=== PATIENT | female | born 1940 | race Caucasian/White ===

== ENCOUNTER → 2016-04-07 | Outpatient (CLI) | payer OTHER ==
[~2016-04-07] MED LIST: ACET-1311 PO; ALBU1AER9 INH; ASPI81TA28 PO; ATOR-24 PO; BUPR5DIS TOP; CITA20TA4 PO; CITA40TA4 PO; DVN80 PO; FURO20TA PO; IMD/2 PO; INSDGI SC; METO-157 PO; METO100T14 PO; NRN600 PO; PANT40TA PO; POTA10CA28 PO; PROM25TA16 PO; RRALBUT083 INH; SENNTAB23 PO; SIMV20TA2 PO; SYMIN/8045 INH; TRAM-453 PO; ULT50 PO
[2016-04-07 12:47] LABS: ALKALINE PHOSPHATASE 123 U/L (45-117); ALT/SGPT 34 U/L (12-78); BLOOD UREA NITROGEN 13 mg/dl (7-18); BUN/CREATININE RATIO 13.1 (10-20); CALCIUM 8.5 mg/dl (8.5-10.1); CARBON DIOXIDE 32 mmol/L (21-32); CHLORIDE 103 mmol/L (98-107); CHOLESTEROL 104 mg/dl (0-200); GLUCOSE 98 mg/dl (70-99); POTASSIUM 3.6 mmol/L (3.5-5.1); SODIUM 142 mmol/L (136-145); TRIGLYCERIDES 124 mg/dl (0-150); VERY LOW DENSITY LIPOPROT CALC 25 mg/dl
[2016-04-07 12:58] LABS: ALB/GLOB RATIO 0.7 (0.9-2); AST/SGOT 27 U/L (15-37); CHOLESTEROL/HDL RATIO 1.9; ESTIMATED AVERAGE GLUCOSE 151 mg/dl; HA1C FLAG Normal (Normal); HDL CHOLESTEROL 54 mg/dl; LDL CHOLESTEROL CALCULATED 25 mg/dl
== END | disposition home or self-care (01) ==
LOC: C.LABBFT 08:09
PROVIDERS: ATTEND Internal Medicine
DX: E11.9 Type 2 diabetes mellitus without complications (principal)

== ENCOUNTER → 2016-04-27 | Outpatient (CLI) | payer OTHER ==
[2016-04-27 17:35] LABS: BASO % 0.3 %; BASO ABS # 0.02 K/uL (0-0.2); COMPLETE YES; EOS % 2.5 %; HEMATOCRIT 44.9 % (37-47); IG% 0.2 %; LYMPH % 26.5 %; LYMPH ABS # 1.61 K/uL (1.2-3.4); MEAN CELL VOLUME 89.1 fL (80-100); MEAN CORPUSCULAR HGB CONC 31.4 g/dl (32-36); MEAN PLATELET VOLUME 10.7 fL (7.4-10.4); MONO % 7.1 %; NEUT % 63.4 %; PLATELET COUNT 238 K/uL (130-400); RED BLOOD COUNT 5.04 M/uL (4.2-5.4); WHITE BLOOD COUNT 6.08 K/uL (4.8-10.8)
== END | disposition home or self-care (01) ==
LOC: C.LABBFT 16:41
PROVIDERS: ATTEND Surgery
DX: N64.4 Mastodynia (principal); Z01.812 Encounter for preprocedural laboratory examination

== ENCOUNTER → 2016-04-30 | Outpatient (CLI) | payer OTHER ==
[~2016-04-30] MED LIST changes: -CITA20TA4 PO; -DVN80 PO; -SIMV20TA2 PO
--- NOTE | 2016-04-30 13:26 | MAMMOGRAPHY REPORT ---
UNILATERAL LEFT DIGITAL DIAGNOSTIC MAMMOGRAM TOMOSYNTHESIS WITH CAD: 04/30/2016 CLINICAL HISTORY: Six-month follow-up of left breast asymmetry. History of right mastectomy. TECHNIQUE: Breast tomosynthesis in addition to standard 2D mammography was performed. Current study was also evaluated with a Computer Aided Detection (CAD) system. Left CC and MLO 2-D and tomosynth esis images were obtained. COMPARISON: Comparison is made to exams dated: 09/19/2015 ultrasound biopsy, 09/11/2015 mammogram, ultrasound, 07/03/2014 ultrasound, 07/03/2014 mammogram, and 12/22/2011 mammogram - [facility]. BREAST COMPOSITION: There are scattered areas of fibroglandular density in the left breast. FINDINGS: The previously described asymmetry seen within the left lateral breast on the cc view is stable compared to multiple prior exams including the 12/19/2010 exam, and is considered benign give n long-term stability. The remainder of the left breast is stable compared to prior exams, without suspicious masses, calcifications, or areas of architectural distortion noted. Small cluster of merry cifications in the left lateral breast middle depth on the cc view is stable compared to prior exams including the 12/22/2011 exam. IMPRESSION: ACR BI-RADS CATEGORY 2: BENIGN There is no mammographic evidence of malignancy in the left breast. A 1 year screening mammogram is recommended. The patient has been verbally notified of the results. Approximately 10% of breast cancers are not detected with mammography. A negative mammographic repor t should not delay biopsy if a clinically suggestive mass is present. Mary Lou Reyes M.D. /:04/30/2016 09:32:23 Appeals Coordinator: Erika SOLORIO)(Rebecca), [facility] letter sent: Normal 1/2 BI-RADS Code: ACR BI-RADS Category 2: Benign
== END | disposition home or self-care (01) ==
LOC: C.MAMM 09:08
PROVIDERS: ATTEND Internal Medicine
DX: N64.9 Disorder of breast, unspecified (principal)

== ENCOUNTER → 2016-06-22 | Outpatient (CLI) | payer OTHER ==
[2016-06-22 17:38] LABS: BASO % 0.3 %; BASO ABS # 0.02 K/uL (0-0.2); COMPLETE YES; EOS % 4.3 %; HEMATOCRIT 46.5 % (37-47); IG% 0.2 %; LYMPH % 28.7 %; LYMPH ABS # 1.88 K/uL (1.2-3.4); MEAN CELL VOLUME 90.6 fL (80-100); MEAN CORPUSCULAR HEMOGLOBIN 28.3 pg (25-34); MEAN CORPUSCULAR HGB CONC 31.2 g/dl (32-36); MEAN PLATELET VOLUME 10.9 fL (7.4-10.4); MONO % 10.1 %; NEUT % 56.4 %; PLATELET COUNT 210 K/uL (130-400); RED BLOOD COUNT 5.13 M/uL (4.2-5.4); WHITE BLOOD COUNT 6.56 K/uL (4.8-10.8)
[2016-06-22 19:01] LABS: BLOOD UREA NITROGEN 12 mg/dl (7-18); BUN/CREATININE RATIO 12.3 (10-20); CALCIUM 8.2 mg/dl (8.5-10.1); CARBON DIOXIDE 25 mmol/L (21-32); CHLORIDE 108 mmol/L (98-107); GLUCOSE 196 mg/dl (70-99); POTASSIUM 4.2 mmol/L (3.5-5.1); SODIUM 141 mmol/L (136-145)
== END | disposition home or self-care (01) ==
LOC: C.LABBFT 14:16
PROVIDERS: ATTEND Surgery
DX: Z01.812 Encounter for preprocedural laboratory examination (principal); R22.2 Localized swelling, mass and lump, trunk

== ENCOUNTER 2016-07-06 10:11 | Day surgery (SDC) | payer OTHER ==
[2016-04-29 09:56] VITALS: BMI 50.0
[2016-06-22 09:20] VITALS: Ht 160 cm; Wt 124.1 kg
[~2016-07-06] VITALS: Ht 160 cm; Wt 124.1 kg
[~2016-07-06 10:11] MED LIST changes: +CLINDAMYCIN IV 900 MG in DEXTROSE 5% ADD-VANTAGE 100ML 100 ML IV SCH; +LACTATED RINGER'S 1000ML 1,000 ML IV SCH; -TRAM-453 PO; -ULT50 PO
[2016-07-06] MEDS ORDERED: PROPOFOL IV EMULSION 10 MG/ML 20 ML VIAL IV ONE (10:33)
[2016-07-06] MEDS ORDERED: MIDAZOLAM HCL 1 MG/ML 2ML VIAL ONE (10:33)
[2016-07-06] MEDS ORDERED: FENTANYL CITRATE INJ 50 MCG/1 ML 2 ML VIAL ONE (10:33)
[2016-07-06] MEDS ORDERED: LIDOCAINE HCL 1% 20 ML VIAL ONE (10:41)
[2016-07-06] MEDS ORDERED: ULT50 PO (10:50)
[2016-07-06 10:56] VITALS: BP 156/94; PULSE 68; TEMP 36.7; O2SAT 95
[2016-07-06 11:29] VITALS: PULSE 68; O2SAT 94
[2016-07-06] MEDS ORDERED: ALBUT/IPRATROP 3MG/0.5MG NEB 3 ML VIAL INH ONE (11:30)
[2016-07-06] MEDS ORDERED: ATROPINE SULFATE 0.1 MG/ML 5ML SYR IV PRN (11:30)
[2016-07-06] MEDS ORDERED: EpHEDrine SULFATE INJ 50 MG/ML AMP IV PRN (11:30)
[2016-07-06] MEDS ORDERED: FENTANYL CITRATE INJ 50 MCG/1 ML 2 ML VIAL IV PRN (11:30)
--- NOTE | 2016-07-06 11:45 | History & Physical Bridge Note ---
H&P Re-Evaluation Bridge Note: I have examined the patient, reviewed the History & Physical and in the interval since the performance of the History & Physical I have noted the following changes of clinical significance: No changes noted
[2016-07-06] MEDS ORDERED: LACTATED RINGER'S 1000ML 1,000 ML IV SCH (12:22)
--- NOTE | 2016-07-06 12:27 | Discharge Instructions ---
Discharge Instructions Date of Service July 06, 2016. Visit Reason for Visit: Right Breast Pain, Insulin-Dependent Diabetes Manuela Discharge Discharge Diagnosis / Problem: right chest biopsy Discharge Goals Goal(s): Decrease discomfort Activity Recommendations Activity Limitations: as noted below Shower/Bathe: keep incision dry (for 2 days) Anesthesia . Post Anesthesia Instructions: If you have had General Anesthesia or IV Sedation: * Do not drive today. * Resume driving when surgeon permits. * Do not make important decisions or sign legal documents today. * Call surgeon for: 1. Temperature elevations greater than 101 degrees F. 2. Uncontrollable pain. 3. Excessive bleeding. 4. Persistent nausea and vomiting. 5. Medication intolerance (nausea, vomiting or rash). * For nausea and vomiting use only clear liquids such as: tea, soda, bouillon until nausea subsides, then gradually increase diet as tolerated. * If you have any concerns or questions, call your surgeon's office. If physician is unavailable and it is an emergency, call 911 or go to the nearest emergency room. . Instructions / Follow-Up Instructions / Follow-Up Dr. Mcnair's office in 7-10 days to have sutures removed, [phone] Diet Recommendations Recommended Home Diet: no limitations Procedures Procedures Performed: Right Chest Wall Biopsy Pending Studies Studies pending at discharge: yes List of pending studies: Pathology Medical Emergencies . Who to Call and When: Medical Emergencies: If at any time you feel your situation is an emergency, please call 911 immediately. . Non-Emergent Contact Non-Emergency issues call your: Surgeon Call Non-Emergent contact if: you have a fever, temperature is above 101.5, your pain is not controlled . . "Provider Documentation" section prepared by Bernardo Pitt. .
--- NOTE | 2016-07-06 12:29 | [facility] Post Operative Brief Note ---
Immediate Operative Summary Operative Date July 06, 2016. Pre-Operative Diagnosis Right Chest Wall Mass Post-Operative Diagnosis Right Chest Wall Mass Procedure(s) Performed Right Chest Wall Biopsy Surgeon Dr. Jose Mcnair Visitor Services Associate Surgeon(s) Bernardo Pitt PA-C Estimated Blood Loss 5ML Findings appeared to be normal skin and subcutaneous tissue Specimens A. Right Chest Wall Tissue Anesthesia local/ sedation Complication(s) None Disposition Recovery Room / PACU
[2016-07-06] MEDS ORDERED: ONDANSETRON INJ 2 MG/ML 2 ML VIAL IV PRN (12:30)
[2016-07-06] MEDS ORDERED: HYDROCODONE/ACETAMOPHEN 5/325MG TAB PO PRN ×3 (12:30)
[2016-07-06] MEDS ORDERED: MoRPHine SULFATE 2 MG/ML CARP IV PRN (12:30)
[2016-07-06] MEDS ORDERED: TRAMADOL HCL 50 MG TAB PO PRN (12:30)
--- NOTE | 2016-07-06 13:00 | Anesthesiology Progress Note ---
Anesthesia Post Op Note Date & Time July 06, 2016 at 13:01 Vital Signs Pain Intensity: 2 Vital Signs Past 12 Hours Date Time Temp Pulse Resp B/P Pulse Ox O2 Delivery O2 Flow Rate FiO2 07/06/16 12:50 77 15 105/78 93 Nasal Cannula 2 07/06/16 12:40 79 12 106/80 95 Nasal Cannula 2 07/06/16 12:31 36.1 77 16 112/81 97 Mask 10 07/06/16 11:29 68 18 94 Room Air 07/06/16 10:56 36.7 68 22 156/94 95 Room Air Notes Mental Status: alert / awake / arousable, participated in evaluation Pt Amnestic to Procedure: Yes Nausea / Vomiting: adequately controlled Pain: adequately controlled Airway Patency, RR, SpO2: stable & adequate BP & HR: stable & adequate Hydration State: stable & adequate Anesthetic Complications: no major complications apparent
[2016-07-06] MEDS ORDERED: TRAM-453 PO (13:11)
[2016-07-06 13:15] VITALS: BP 109/63; PULSE 75; TEMP 36.8; O2SAT 94
--- NOTE | 2016-07-06 13:41 | OPERATIVE REPORT ---
DATE OF OPERATION: 07/06/2016 NAME OF OPERATION: Right chest wall biopsy. PREOPERATIVE DIAGNOSIS: Right chest wall mass. POSTOPERATIVE DIAGNOSIS: Same. ANESTHESIA: Local with sedation. PROCEDURE: The patient was brought in the operating room and placed on the operating table in supine position. Her right chest was prepped and draped in usual fashion. She had prior right mastectomy but had some soft tissue mounding just above the incision, which we wanted to make sure was not carcinoma. Using 1% plain lidocaine, elliptical incision was made just above the previous incision, carrying dissection down into the subcutaneous tissue, what appeared to be normal. This was sent for routine pathology. There was no area of firm mass effect, just soft tissue. The deep tissue was reapproximated using 2-0 plain catgut suture, then the skin reapproximated using 4-0 nylon suture. The patient was transferred to recovery room in stable condition. I attest to the content of the Intraoperative Record and any orders documented therein. Any exceptio ns are noted below.
[2016-07-06 13:46] VITALS: BP 102/65; PULSE 71; TEMP 36.8; O2SAT 94
[2016-07-06 14:15] VITALS: BP 107/55; PULSE 70; TEMP 36.5; O2SAT 94
--- NOTE | 2016-07-10 06:53 | EDITING REQUIRED CODING QUERY ---
CODING CLARIFICATION Please clarify below the size of the excision in square centimeters: ___1.2 sq cm (2x0.6 cm skin and 1 cm of subcutaneous tissue square centimeters were excised. Thank you for your assistance, Nahomy Jones - Laboratory Assistant
== END 2016-07-06 14:34 | disposition home or self-care (01) ==
LOC: C.ACU 10:11
PROVIDERS: ATTEND Surgery
DX: R22.2 Localized swelling, mass and lump, trunk (principal); J45.909 Unspecified asthma, uncomplicated; K21.9 Gastro-esophageal reflux disease without esophagitis; E11.9 Type 2 diabetes mellitus without complications; E78.00 Pure hypercholesterolemia, unspecified; I10 Essential (primary) hypertension; E66.01 Morbid (severe) obesity due to excess calories; F32.9 Major depressive disorder, single episode, unspecified; Z90.11 Acquired absence of right breast and nipple; Z87.01 Personal history of pneumonia (recurrent); Z85.3 Personal history of malignant neoplasm of breast; Z90.710 Acquired absence of both cervix and uterus; Z79.82 Long term (current) use of aspirin; Z79.4 Long term (current) use of insulin

== ENCOUNTER → 2016-10-09 | Outpatient (CLI) | payer OTHER ==
[~2016-10-09] MED LIST changes: -BUPR5DIS TOP; -CLINDAMYCIN IV 900 MG in DEXTROSE 5% ADD-VANTAGE 100ML 100 ML IV SCH; -LACTATED RINGER'S 1000ML 1,000 ML IV SCH; +ULT50 PO
[2016-10-09 12:29] LABS: MEAN CELL VOLUME 91.1 fL (80-100); MEAN CORPUSCULAR HEMOGLOBIN 28.1 pg (25-34); MEAN CORPUSCULAR HGB CONC 30.9 g/dl (32-36); MEAN PLATELET VOLUME 10.5 fL (7.4-10.4); PLATELET COUNT 247 K/uL (130-400); RED BLOOD COUNT 5.05 M/uL (4.2-5.4); WHITE BLOOD COUNT 6.98 K/uL (4.8-10.8)
[2016-10-09 12:43] LABS: ESTIMATED AVERAGE GLUCOSE 160 mg/dl; HA1C FLAG Normal (Normal)
[2016-10-09 12:53] LABS: ALB/GLOB RATIO 0.7 (0.9-2); ALT/SGPT 35 U/L (12-78); AST/SGOT 25 U/L (15-37); BLOOD UREA NITROGEN 13 mg/dl (7-18); BUN/CREATININE RATIO 13.2 (10-20); CALCIUM 8.1 mg/dl (8.5-10.1); CARBON DIOXIDE 28 mmol/L (21-32); CHLORIDE 110 mmol/L (98-107); CREATININE 0.98 mg/dl (0.60-1.20); GLUCOSE 165 mg/dl (70-99); POTASSIUM 4.3 mmol/L (3.5-5.1); SODIUM 141 mmol/L (136-145)
[2016-10-09 12:54] LABS: ALKALINE PHOSPHATASE 117 U/L (45-117); CHOLESTEROL 85 mg/dl (0-200); CHOLESTEROL/HDL RATIO 1.9; HDL CHOLESTEROL 44 mg/dl; LDL CHOLESTEROL CALCULATED 18 mg/dl; TRIGLYCERIDES 115 mg/dl (0-150); VERY LOW DENSITY LIPOPROT CALC 23 mg/dl
== END | disposition home or self-care (01) ==
LOC: C.LABBFT 09:42
PROVIDERS: ATTEND Internal Medicine
DX: E11.9 Type 2 diabetes mellitus without complications (principal)

== ENCOUNTER → 2017-04-20 | Outpatient (CLI) | payer OTHER ==
[~2017-04-20] MED LIST changes: -ULT50 PO
[2017-04-20 13:09] LABS: HEMOGLOBIN A1C 6.8 % (4.5-5.6)
[2017-04-20 15:50] LABS: ALBUMIN 2.9 gm/dl (3.4-5.0); ALKALINE PHOSPHATASE 111 U/L (45-117); ALT/SGPT 35 U/L (12-78); AST/SGOT 30 U/L (15-37); BLOOD UREA NITROGEN 18 mg/dl (7-18); CALCIUM 8.3 mg/dl (8.5-10.1); CARBON DIOXIDE 27 mmol/L (21-32); CREATININE 1.09 mg/dl (0.60-1.20); GLUCOSE 113 mg/dl (70-99); POTASSIUM 4.3 mmol/L (3.5-5.1); SODIUM 141 mmol/L (136-145); TOTAL PROTEIN 6.9 gm/dl (6.4-8.2)
[2017-04-20 16:02] LABS: CHOLESTEROL 95 mg/dl (0-200); LDL CHOLESTEROL CALCULATED 22 mg/dl
== END | disposition home or self-care (01) ==
LOC: C.LABBFT 09:50
PROVIDERS: ATTEND Internal Medicine
DX: E11.9 Type 2 diabetes mellitus without complications (principal)

== ENCOUNTER → 2017-05-07 | Outpatient (CLI) | payer OTHER ==
--- NOTE | 2017-05-07 16:18 | DIAGNOSTIC IMAGING REPORT ---
L-SPINE MIN 4 VIEWS ROUTINE CLINICAL HISTORY: M54.5 Low back [id number] COMPARISON STUDY: 10/06/2009 FINDINGS: There are postsurgical changes present. There is L3-S1 spinal fusion. There are postsurgical changes of an L5-S1 discectomy and interbody fusion. No acute fractures are visualized. Moderately advanced degenerative changes are present at the L1-2, and L2-3 levels. IMPRESSION: Degenerative and postsurgical change. No acute fractures or subluxations identified. Electronically signed by: Fletcher Fernando M.D. 05/07/2017 4:16 PM Dictated Date/Time: 05/07/2017 4:15 PM
--- NOTE | 2017-05-07 16:21 | DIAGNOSTIC IMAGING REPORT ---
L RIBS UNILATERAL WITH PA CHEST HISTORY: 76 years-old Female LT RIB PAIN acute left-sided rib pain with recent fall COMPARISON: Chest radiograph 12/19/2015 TECHNIQUE: AP view of the chest with 6 views of the left ribs FINDINGS: Cardiac silhouette is moderately enlarged. No pneumothorax, pleural effusion, focal airspace consolidation or overt pulmonary edema. Eventration of the right hemidiaphragm. Linear subsegmental left basilar opacities suggest atelectasis or scarring. Degenerative changes are noted involving the shoulders and spine. Surgical clips of the right upper abdomen suggest prior cholecystectomy. Surgical clips project over the epigastric region. Fusion hardware of the lumbar spine is partially imaged. Mild cortical irregularity involves the posterior aspect of the left 11th rib suspicious for acute nondisplaced fracture. Remaining ribs appear intact and unremarkable. IMPRESSION: 1. Cardiomegaly without acute process of the chest. 2. Mild cortical irregularity involving the posterior aspect of the left 11th rib is suspicious for acute nondisplaced fracture. Correlate with point tenderness. No acute displaced rib fracture or pneumothorax identified. The above report was generated using voice recognition software. It may contain grammatical, syntax or spelling errors. Electronically signed by: Jaziel Martin M.D. 05/07/2017 4:20 PM Dictated Date/Time: 05/07/2017 4:16 PM
== END | disposition home or self-care (01) ==
LOC: C.RAD1850 15:22
PROVIDERS: ATTEND Internal Medicine
DX: R07.9 Chest pain, unspecified (principal); M54.5 Low back pain; I51.7 Cardiomegaly

== ENCOUNTER 2017-07-06 18:27 | Emergency (ER) | payer OTHER ==
[~2017-07-06] VITALS: Ht 160 cm; Wt 130.0 kg
[2017-07-06 18:30] VITALS: TEMP 36.8; Ht 160 cm; Wt 130.0 kg
[2017-07-06] MEDS ORDERED: SODIUM CHLORIDE 0.9% 1000ML 500 ML IV STA (18:37)
--- NOTE | 2017-07-06 18:58 | EMERGENCY ROOM VISIT NOTE ---
History Report prepared by Faraz: Efra Greene Under the Supervision of: Dr. Vinay Izquierdo M.D. First contact with patient: 18:33 Chief Complaint: HYPERGLYCEMIA Stated Complaint: BLOOD SUGAR WAS OVER 400 AT DINNER History of Present Illness The patient is a 77 year old female who presents to the Emergency Room with complaints of constant hyperglycemia beginning this evening. The patient states she took her blood sugar at dinner earlier and her blood sugar was in the 400s. She reports her blood sugar was not elevated yesterday. The patient notes she took 20 units of regular insulin when she took her blood sugar and it was elevated. She states she has been urinating more frequently than normal today. The patient reports she has had a cold and runny nose for the past few days. She denies missing medications, taking new medication, cough, and congestion. Source of History: patient Onset: this evening Symptom Intensity: over 400 Quality: other (hyperglycemia) Timing: constant Modifying Factors (Relieving): other (20 units of regular insulin) Associated Symptoms: No cough Note: Associated symptoms: cold, increased urine frequency, runny nose Denies: congestion Review of Systems See HPI for pertinent positives & negatives. A total of 10 systems reviewed and were otherwise negative. Past Medical & Surgical Medical Problems: (1) Appendectomy (2) Back surgery (3) Benign hypertension (4) Cholecystectomy (5) Diabetes (6) Hernia (7) History of - tubal ligation Family History Cancer Diabetes mellitus Gallbladder disease Heart disease Hypertension Social History Smoking Status: Never Smoker Alcohol Use: none Drug Use: none Marital Status: Housing Status: lives with family Occupation Status: retired Current/Historical Medications Scheduled Aspirin (Aspirin Ec), 81 MG PO QAM Atorvastatin (Lipitor), 40 MG PO QAM Budesonide/Formoterol Fumarate (Symbicort 80/4.5 Inhaler), 2 PUFFS INH BID Citalopram (Citalopram Hydrobromide), 1 TAB PO QAM Furosemide (Lasix), 20 MG PO QAM Gabapentin (Gabapentin), 1,200 MG PO BID Insulin Glargine (Lantus), 20 UNITS SC AMPM Metoclopramide (Reglan), 10 MG PO QAM Metoprolol Tartrate (Lopressor) (Lopressor), 100 MG PO QAM Pantoprazole (Protonix), 40 MG PO QAM Potassium Chloride (Micro-K Ext Rel), 10 MEQ PO QAM Promethazine HCl (Promethazine HCl), 25 MG PO QAM Sennosides-Docusate Sodium (Stool Softener), 1 TAB PO PRN Scheduled PRN Acetaminophen (Tylenol), 650 MG PO Q6H PRN for Pain Albuterol (Proair Hfa), 2 PUFF INH QID PRN for WHEEZING Albuterol Sulf (Albuterol Sulfate), 1 APPLN INH QID PRN for SHORTNESS/WHEEZING Loperamide Hcl (Imodium), 2 MG PO Q6H PRN for RN Allergies Coded Allergies: Iodine (Verified Allergy, Severe, RASH, 07/06/17) Penicillins (Verified Allergy, Intermediate, RASH/HIVES, 07/06/17) BEE STING (Verified Allergy, Unknown, SWELLING SOB, 07/06/17) Cephalosporins (Verified Allergy, Unknown, UNKNOWN, 07/06/17) Codeine (Verified Allergy, Unknown, SWELLING, 07/06/17) Metformin (Verified Allergy, Unknown, Diarrhea, 07/06/17) Procaine (Verified Allergy, Unknown, NOVOCAINE-RASH, 07/06/17) Physical Exam Vital Signs Date Time Temp Pulse Resp B/P (MAP) Pulse Ox O2 Delivery O2 Flow Rate FiO2 07/06/17 21:15 62 16 157/72 98 Room Air 07/06/17 20:11 65 16 167/79 98 Room Air 07/06/17 19:40 74 07/06/17 18:30 36.8 82 20 138/80 96 Room Air Physical Exam GENERAL: Patient is in no acute distress. HEENT: No acute trauma, normocephalic atraumatic, mucous membranes dry, no nasal congestion, no scleral icterus. NECK: No stridor, no adenopathy, no meningismus, trachea is midline. LUNGS: Clear to auscultation bilaterally, no wheeze, no rhonchi, breath sounds equal. HEART: Without murmurs gallops or rubs, regular rate and rhythm. ABDOMEN: Soft, nontender, bowel sounds positive, no hernias, no peritonitis. EXTREMITIES: No cyanosis. Mild pedal edema, full range of motion of all the joints without pain or difficulty, no signs for acute trauma. NEUROLOGIC: Oriented x 3, no acute motor or sensory deficits, no focal weakness. SKIN: No jaundice. The patient has a reddened, flat rash underneath her left breast and axilla - consistent with watson. No cellulitis. Medical Decision & Procedures ER Provider Diagnostic Interpretation: X-ray results as stated below per interpretation by me and the radiologist: CHEST ONE VIEW PORTABLE CLINICAL HISTORY: Shortness of breath COMPARISON STUDY: 12/19/2015 FINDINGS: The heart is mildly enlarged. There is mild mediastinal prominence, likely secondary to mediastinal fat deposition and unchanged from the prior study. There is no overt failure. There is no focal pulmonary consolidation. There are no pleural effusions.[ There is stable widening of the right coracoclavicular distance, likely posttraumatic or postsurgical. IMPRESSION: Mild cardiomegaly. No acute findings. Electronically signed by: Fletcher Fernando M.D. 07/06/2017 7:23 PM Dictated Date/Time: 07/06/2017 7:21 PM Laboratory Results 07/06/17 19:00 Red Blood Count 5.01, Mean Corpuscular Volume 90.8, Mean Corpuscular Hemoglobin 28.5, Mean Corpuscular Hemoglobin Concent 31.4, Mean Platelet Volume 10.2, Neutrophils (%) (Auto) 65.5, Lymphocytes (%) (Auto) 23.3, Monocytes (%) (Auto) 8.3, Eosinophils (%) (Auto) 2.5, Basophils (%) (Auto) 0.3, Neutrophils # (Auto) 4.65, Lymphocytes # (Auto) 1.66, Monocytes # (Auto) 0.59, Eosinophils # (Auto) 0.18, Basophils # (Auto) 0.02 07/06/17 19:00 Test 07/06/17 19:00 07/06/17 19:05 White Blood Count 7.11 K/uL (4.8-10.8) Red Blood Count 5.01 M/uL (4.2-5.4) Hemoglobin 14.3 g/dL (12.0-16.0) Hematocrit 45.5 % (37-47) Mean Corpuscular Volume 90.8 fL (80-100) Mean Corpuscular Hemoglobin 28.5 pg (25-34) Mean Corpuscular Hemoglobin Concent 31.4 g/dl (32-36) Platelet Count 212 K/uL (130-400) Mean Platelet Volume 10.2 fL (7.4-10.4) Neutrophils (%) (Auto) 65.5 % Lymphocytes (%) (Auto) 23.3 % Monocytes (%) (Auto) 8.3 % Eosinophils (%) (Auto) 2.5 % Basophils (%) (Auto) 0.3 % Neutrophils # (Auto) 4.65 K/uL (1.4-6.5) Lymphocytes # (Auto) 1.66 K/uL (1.2-3.4) Monocytes # (Auto) 0.59 K/uL (0.11-0.59) Eosinophils # (Auto) 0.18 K/uL (0-0.5) Basophils # (Auto) 0.02 K/uL (0-0.2) RDW Standard Deviation 44.0 fL (36.4-46.3) RDW Coefficient of Variation 13.3 % (11.5-14.5) Immature Granulocyte % (Auto) 0.1 % Immature Granulocyte # (Auto) 0.01 K/uL (0.00-0.02) Anion Gap 5.0 mmol/L (3-11) Est Creatinine Clear Calc Drug Dose 46.6 ml/min Estimated GFR () 45.1 Estimated GFR (Non- 38.9 BUN/Creatinine Ratio 15.0 (10-20) Calcium Level 8.1 mg/dl (8.5-10.1) Magnesium Level 1.9 mg/dl (1.8-2.4) Total Bilirubin 0.2 mg/dl (0.2-1) Aspartate Amino Transf (AST/SGOT) 37 U/L (15-37) Alanine Aminotransferase (ALT/SGPT) 38 U/L (12-78) Alkaline Phosphatase 132 U/L (45-117) Troponin I < 0.015 ng/ml (0-0.045) Total Protein 7.1 gm/dl (6.4-8.2) Albumin 2.8 gm/dl (3.4-5.0) Globulin 4.3 gm/dl (2.5-4.0) Albumin/Globulin Ratio 0.7 (0.9-2) Thyroid Stimulating Hormone (TSH) 2.080 uIu/ml (0.300-4.500) Urine Color YELLOW Urine Appearance CLEAR (CLEAR) Urine pH 5.0 (4.5-7.5) Urine Specific [place] 1.014 (1.000-1.030) Urine Protein NEG (NEG) Urine Glucose (UA) NEG (NEG) Urine Ketones NEG (NEG) Urine Occult Blood NEG (NEG) Urine Nitrite NEG (NEG) Urine Bilirubin NEG (NEG) Urine Urobilinogen NEG (NEG) Urine Leukocyte Esterase NEG (NEG) Laboratory results reviewed by me. Medications Administered Medications (Trade) Dose Ordered Sig/Helen Route Start Time Stop Time Status Last Admin Dose Admin Sodium Chloride 500 ml @ 999 mls/hr Q31M STAT IV 07/06/17 18:37 07/06/17 19:07 DC 07/06/17 18:37 999 MLS/HR Sodium Chloride 500 ml @ 999 mls/hr Q31M STAT IV 07/06/17 19:40 07/06/17 20:10 DC 07/06/17 20:09 999 MLS/HR ECG Per My Interpretation Indication: weakness Rate (beats per minute): 76 Rhythm: normal sinus Findings: prolonged QT (mild), no ectopy, other (No ST elevation or PVCs.) ED Course 1835: The patient was evaluated in room A10. A complete history and physical exam was performed. 1836: Ordered Sodium Chloride 500 ml @ 999 mls/hr IV 1939: Ordered Sodium Chloride 500 ml @ 999 mls/hr IV 1956: Reevaluated the patient. Discussed results and discharge instructions: she verbalized understanding and agreement. The patient is ready for discharge when her second bolus finishes. Medical Decision The patient is a 77 year old female who presents to the ED with complaints of constant hyperglycemia. Differential diagnoses considered include dehydration, UTI, electrolyte imbalance, renal failure, pneumonia, missed medication dosage, generalized infection. There is no leukocytosis or concerning anemia. No kidney failure. Sugar was about 190. No hepatitis. Urinalysis does not show infection. Chest film shows chronic findings with some mild cardiomegaly. No pneumonia or CHF. EKG shows a normal sinus rhythm with a somewhat prolonged QT, no acute ischemia. Cardiac enzyme testing 1 is not consistent with acute cardiac injury. The patient appears to be in a euthyroid state. Patient received IV saline. She looks well, she really has no current complaints. The patient presents with hyperglycemia. She had taken insulin before arrival and her blood sugar is now about 190. She was hydrated with IV saline and I do think can be discharged. If worsening, she can return. No signs of infection by my workup. Medication Reconcilliation Current Medication List: was personally reviewed by me Blood Pressure Screening Patient's blood pressure: Elevated blood pressure Blood pressure disposition: Referred to PCP Impression Primary Impression: Dehydration Additional Impression: Hyperglycemia Scribe Attestation The scribe's documentation has been prepared under my direction and personally reviewed by me in its entirety. I confirm that the note above accurately reflects all work, treatment, procedures, and medical decision making performed by me. Departure Information Dispostion Home / Self-Care Referrals Paul Laery M.D. (PCP) Forms HOME CARE DOCUMENTATION FORM, IMPORTANT VISIT INFORMATION, WORK / SCHOOL INSTRUCTIONS Patient Instructions My [facility] Additional Instructions see your doctor later this week for a recheck lab testing today was ok urine testing today was ok chest film today was ok return for worsening symptoms, fever, vomiting Problem Qualifiers
[2017-07-06 19:22] LABS: BASO % 0.3 %; BASO ABS # 0.02 K/uL (0-0.2); EOS % 2.5 %; EOS ABS # 0.18 K/uL (0-0.5); HEMATOCRIT 45.5 % (37-47); HEMOGLOBIN 14.3 g/dL (12.0-16.0); IG# 0.01 K/uL (0.00-0.02); LYMPH % 23.3 %; LYMPH ABS # 1.66 K/uL (1.2-3.4); MEAN CELL VOLUME 90.8 fL (80-100); MEAN CORPUSCULAR HEMOGLOBIN 28.5 pg (25-34); MEAN CORPUSCULAR HGB CONC 31.4 g/dl (32-36); MEAN PLATELET VOLUME 10.2 fL (7.4-10.4); MONO % 8.3 %; MONO ABS # 0.59 K/uL (0.11-0.59); NEUT % 65.5 %; NEUT ABS # 4.65 K/uL (1.4-6.5); PLATELET COUNT 212 K/uL (130-400); RED CELL DISTRIBUTION WIDTH CV 13.3 % (11.5-14.5); WHITE BLOOD COUNT 7.11 K/uL (4.8-10.8)
--- NOTE | 2017-07-06 19:24 | DIAGNOSTIC IMAGING REPORT ---
CHEST ONE VIEW PORTABLE CLINICAL HISTORY: Shortness of breath COMPARISON STUDY: 12/19/2015 FINDINGS: The heart is mildly enlarged. There is mild mediastinal prominence, likely secondary to mediastinal fat deposition and unchanged from the prior study. There is no overt failure. There is no focal pulmonary consolidation. There are no pleural effusions.[ There is stable widening of the right coracoclavicular distance, likely posttraumatic or postsurgical. IMPRESSION: Mild cardiomegaly. No acute findings. Electronically signed by: Fletcher Fernando M.D. 07/06/2017 7:23 PM Dictated Date/Time: 07/06/2017 7:21 PM
[2017-07-06 19:39] LABS: ALBUMIN 2.8 gm/dl (3.4-5.0); ALT/SGPT 38 U/L (12-78); AST/SGOT 37 U/L (15-37); BLOOD UREA NITROGEN 20 mg/dl (7-18); CALCIUM 8.1 mg/dl (8.5-10.1); CARBON DIOXIDE 27 mmol/L (21-32); CREATININE 1.31 mg/dl (0.60-1.20); GLUCOSE 192 mg/dl (70-99); POTASSIUM 4.3 mmol/L (3.5-5.1); SODIUM 140 mmol/L (136-145)
[2017-07-06] MEDS ORDERED: SODIUM CHLORIDE 0.9% 500ML 500 ML IV STA (19:40)
[2017-07-06 19:50] LABS: ALKALINE PHOSPHATASE 132 U/L (45-117); TOTAL PROTEIN 7.1 gm/dl (6.4-8.2)
[2017-07-06 21:15] VITALS: BP 157/72; PULSE 62; O2SAT 98
== END 2017-07-06 21:21 | disposition home or self-care (01) ==
LOC: C.EDB 18:28 → C.EDA 21:21
DX: E11.65 Type 2 diabetes mellitus with hyperglycemia (principal); E86.0 Dehydration; Z90.49 Acquired absence of other specified parts of digestive tract; Z98.51 Tubal ligation status; Z80.9 Family history of malignant neoplasm, unspecified; Z83.3 Family history of diabetes mellitus; Z82.49 Family history of ischemic heart disease and other diseases of the circulatory system; Z83.79 Family history of other diseases of the digestive system; Z79.82 Long term (current) use of aspirin; Z79.899 Other long term (current) drug therapy; Z79.4 Long term (current) use of insulin; Z88.0 Allergy status to penicillin; Z88.5 Allergy status to narcotic agent; Z88.8 Allergy status to other drugs, medicaments and biological substances; Z91.030 Bee allergy status

== ENCOUNTER 2018-06-13 08:41 | Inpatient (IN) ==
--- NOTE | 2018-05-23 10:49 | Anesthesiology Consultation ---
Date of Service May 23, 2018 Assessment & Plan (1) Encounter for pre-operative examination: CHECK BSG STAT AM DOS Chart Review Chart Review: Acceptable Risk for Surgery and Patient NOT seen in Pre Admission Testing History Surgery Operation Date: 05/30/18 10:20 Proposed Procedures p Right Chest Wall Biopsy, Drainage, Debridement - Jose Mcnair MD, FACS Height/Weight Height: 5 ft 3 in Weight: 129.274 kg Allergies Allergy/AdvReac Type Severity Reaction Status Date / Time bee venom protein (honey bee) Allergy Severe SWELLING Verified 05/16/18 11:43 SOB iodine Allergy Severe RASH Verified 05/16/18 11:43 codeine Allergy Intermediate SWELLING Verified 05/16/18 11:43 metformin Allergy Intermediate Diarrhea Verified 05/16/18 11:43 Penicillins Allergy Intermediate RASH/HIVES Verified 05/16/18 11:43 procaine Allergy Mild NOVOCAINE-R Verified 05/16/18 11:43 AKILAH Cephalosporins Allergy Unknown UNKNOWN Verified 05/16/18 11:43 Medications Home Medications Medication Instructions Recorded Confirmed Last Taken albuterol sulfate 1 vial INHALATION QID PRN 12/23/17 05/16/18 Unknown albuterol sulfate [ProAir HFA] 2 puff INHALATION QID PRN 12/23/17 05/16/18 Unknown aspirin [Aspir-81] 81 mg PO DAILY 12/23/17 05/16/18 Unknown atorvastatin [Lipitor] 40 mg PO DAILY 12/23/17 05/16/18 Unknown budesonide-formoterol [Symbicort] 2 puff INHALATION BID 12/23/17 05/16/18 Unknown citalopram [Celexa] 40 mg PO DAILY 12/23/17 05/16/18 Unknown furosemide [Lasix] 20 mg PO DAILY 12/23/17 05/16/18 Unknown gabapentin [Neurontin] 1,200 mg PO BID 12/23/17 05/16/18 Unknown insulin glargine [Lantus U-100 20 unit SUBCUT BID 12/23/17 05/16/18 Unknown Insulin] ipratropium bromide 2 spray INTRANASAL TID PRN 12/23/17 05/16/18 Unknown loperamide [Imodium A-D] 2 mg PO Q6 PRN 12/23/17 05/16/18 Unknown metoclopramide HCl [Reglan] 10 mg PO ACHS PRN 12/23/17 05/16/18 Unknown metoprolol tartrate [Lopressor] 100 mg PO BID 12/23/17 05/16/18 Unknown nystatin [Nystop] 1 applic TOPICAL TID PRN 12/23/17 05/16/18 Unknown pantoprazole [Protonix] 40 mg PO DAILY 12/23/17 05/16/18 Unknown potassium chloride [Klor-Con 10] 10 meq PO DAILY 12/23/17 05/16/18 Unknown tramadol [Ultram] 50 - 100 mg PO Q6 PRN 12/23/17 05/16/18 Unknown meloxicam 7.5 mg PO BID PRN 05/05/18 05/16/18 Unknown oxycodone 1 - 2 mg PO Q8H PRN 05/05/18 05/16/18 Unknown Past Medical History Medical History Chronic chest pain (Acute) Has been evaluated by cardio, ruled to be non-cardiac in origin. Anxiety Asthma RARELY NEEDS PRN INH Atrial fibrillation Paroxysmal, not on anticoagulation. Per cardio 12/25/15, "since she has not had a paroxysmal for many years, no therapy will be initiated today. Given her elevated CHADSVASC score, though, would recommend anticoagulation therapy if she were to develop any recurrent episodes of A. fib in the future." Chronic back pain Depression Diabetes mellitus, type 2 IDDM. HgA1C 6.6% 05/03/18 Diverticular disease GERD (gastroesophageal reflux disease) Hiatal hernia History of right breast cancer S/P RT MASTECTOMY, + CHEMO/RADIATION Hyperlipidemia Hypertension Migraine Morbid obesity Myocardial Infarction > 20 YEARS AGO Nonobstructive atherosclerosis of coronary artery Per cath 2008 Osteoarthritis Past Family History Family History Sister Family history of diabetes mellitus Past Surgical History Surgical History History of appendectomy History of back surgery HARDWARE PRESENT History of bilateral tubal ligation History of breast biopsy History of cardiac cath 5 YEARS AGO - [facility] - REASON? - NO STENTS/ANGIOPLASTY History of carpal tunnel release BL History of cataract surgery History of cholecystectomy History of dilatation and curettage History of hysterectomy History of partial gastrectomy History of right mastectomy NO BP/IV RUE History of tonsillectomy History of tooth extraction History of total knee replacement BL History of total shoulder replacement RT Social History Smoking Status: Never smoker Do You Dip or Chew Tobacco: No Hx Alcohol Use: No Alcohol Intake Frequency Comment: PT REPORTS QUIT DRINKING 5 YEARS AGO/"USED TO BE A HEAVY DRINKER" Hx Substance Use: No substance use type: does not use Testing Electrocardiogram Date: 12/23/17 Findings: + NSR @ (75) Left axis deviation. Possible anterior infarct, age undetermined. Compared with EKG of 07/06/2017, no significant changes found. Echocardiogram Date: 12/20/15 EF: 55-60% Technically difficult study. Normal biventricular systolic function. Left ventricular diastolic dysfunction. Normal chamber dimensions. No significant valvular abnormalities noted. Stress Test Date: 03/02/16 Type: DSE Negative dobutamine stress echo and EKG for myocardial ischemia at 85% maximum predicted heart rate. No dobutamine induced chest pain. The baseline echo notes normal LV function. Other Testing Chest CT 05/05/18 FINDINGS: A complex well-circumscribed lesion is again identified in the operative bed the right breast. This appears to extend to but not involve the chest wall. Maximum dimensions are 8.8 x 3.2 cm. As compared to the prior study where dimensions were 9.6 x 2.5 cm. Density characteristics is somewhat higher than the prior CT exam. Lung parenchyma shows mild nonspecific interstitial prominence throughout both hemithoraces. Components of this are chronic. There is no significant mediastinal or hilar adenopathy. IMPRESSION: 1. Nonenhancing slightly hyperdense collection/mass within the right breast operative bed. 2. This has been present previously and is slightly changed in dimension as discussed above. It has been present since the CT study of 2009 3. Statistically this is suggestive of an organized hematoma, although as noted in the patient's prior ultrasound report fine-needle aspiration could be considered for definitive diagnosis. Laboratory Results Laboratory Tests 05/03/18 05/03/18 05/13/18 14:25 14:25 07:53 WBC 6.66 Hgb 14.3 Hct 46.0 Plt Count 205 Sodium 141 Potassium 4.3 Chloride 109 H Carbon Dioxide 28 BUN 19 H Creatinine 0.93 Glucose 143 H Hemoglobin A1c 6.6 H
[~2018-06-13 08:41] MED LIST changes: -ACET-1311 PO; -ALBU1AER9 INH; -ASPI81TA28 PO; -ATOR-24 PO; -CITA40TA4 PO; +CLINDAMYCIN 900 MG / 50ML D5W IV SCH; -FURO20TA PO; -IMD/2 PO; -INSDGI SC; +LR 15ML/HR IV SCH; -METO-157 PO; -METO100T14 PO; -NRN600 PO; -PANT40TA PO; -POTA10CA28 PO; -PROM25TA16 PO; -RRALBUT083 INH; -SENNTAB23 PO; -SYMIN/8045 INH
[2018-06-13] MEDS ORDERED: fentaNYL citrate 100 MCG/2 ML VIAL ONE (09:58)
[2018-06-13] MEDS ORDERED: ONDANSETRON INJ 2 MG/ML 2 ML VIAL ONE (09:58)
[2018-06-13] MEDS ORDERED: PROPOFOL IV EMULSION 10 MG/ML 20 ML VIAL IV ONE (09:58)
[2018-06-13] MEDS ORDERED: LIDOCAINE HCL 2% 2 ML VIAL/AMP(20MG/ML) INFIL ONE (09:58)
[2018-06-13] MEDS ORDERED: MIDAZOLAM HCL 1 MG/ML 2ML VIAL ONE (10:45)
[2018-06-13] MEDS ORDERED: BUPIVACAINE 0.5 % 5 MG/1 ML MPF 30ML VIAL ONE (10:56)
[2018-06-13] MEDS ORDERED: FLUMAZENIL 0.1 MG/1 ML 10 ML VIAL IV PRN (11:10)
[2018-06-13] MEDS ORDERED: fentaNYL citrate 100 MCG/2 ML VIAL IV PRN (11:10)
[2018-06-13] MEDS ORDERED: ATROPINE SULFATE 0.1 MG/ML 10ML SYR IV PRN (11:10)
[2018-06-13] MEDS ORDERED: ePHEDrine sulfate 50 MG/ML AMP IV PRN (11:10)
[2018-06-13] MEDS ORDERED: ONDANSETRON INJ 2 MG/ML 2 ML VIAL IV PRN (11:10)
[2018-06-13] MEDS ORDERED: PROMETHAZINE HCL 12.5 MG in SODIUM CHLORIDE 0.9% 50 ML IV PRN (11:10)
[2018-06-13] MEDS ORDERED: LABETALOL HCL IV 5 MG/ML 20ML IV PRN (11:10)
[2018-06-13] MEDS ORDERED: ACETAMINOPHEN 1,000 MG/100 ML VIAL IV ONE (11:43)
--- NOTE | 2018-06-13 11:43 | Operative Report ---
Post Operative Report Pre & Post Diagnosis Operation Date: 06/13/18 11:00 Pre-Op Diagnosis: Hematoma, Right Chest Wall Post-Op Diagnosis: Hematoma, Right Chest Wall Procedure Operation Date: 06/13/18 11:00 Actual Procedures p Right Chest Wall Biopsy, Drainage, Debridement(Right) - Jose Mcnair MD, FACS Surgeon Jose Mcnair MD, FACS Mechatronics Technologist Phillip Pitt Estimated Blood Loss 20 Findings Consistent with Post-Op Diagnosis Specimens Rt chest wall tissue and hematoma Description of Procedure see dictation I attest to the content of the Intraoperative Record and any orders documented therein. Any exceptions are noted below.
[2018-06-13] MEDS ORDERED: HYDROmorphone INJ 1 MG/ML SYRINGE IV PRN (11:47)
[2018-06-13] MEDS ORDERED: HYDROmorphone INJ 0.5 MG/0.5 ML SYR IV PRN (11:47)
[2018-06-13] MEDS ORDERED: ALBUTEROL HFA 8 GM INHALER INH PRN (11:53)
[2018-06-13] MEDS ORDERED: ALBUTEROL 0.083% NEBU SOLN 3 ML VIAL INH PRN (11:53)
[2018-06-13] MEDS ORDERED: ACETAMINOPHEN 1000 MG/100 ML IV IV ONE (12:03)
--- NOTE | 2018-06-13 12:46 | Anesthesiology Progress Note ---
Date of Service June 13, 2018 Anesthesia Post Procedure Vital Signs Vital Signs: Temp Pulse Pulse Resp BP Pulse Ox 06/13/18 12:40 36.8 C 80 22 148/67 H 98 06/13/18 12:30 81 26 H 153/89 H 96 06/13/18 12:20 100 H 26 H 162/83 H 98 06/13/18 12:10 101 H 21 130/88 96 06/13/18 12:00 84 18 167/80 H 100 06/13/18 11:53 37.3 C 88 18 190/114 H 99 06/13/18 09:50 37.9 C H 82 24 144/90 H 95 Notes Mental Status: alert / awake / arousable Patient Amnestic to Procedure: Yes Nausea / Vomiting: adequately controlled Pain: adequately controlled Airway Patency, RR, SpO2: stable & adequate BP & HR: stable & adequate Hydration State: stable & adequate Anesthetic Complications: no major complications apparent
[2018-06-13] MEDS ORDERED: SODIUM CHLORIDE 0.9% 1000ML 1,000 ML IV SCH ×2 (14:00→16:30)
--- NOTE | 2018-06-13 14:09 | Operative Report ---
DATE OF OPERATION: 06/13/2018 NAME OF OPERATION: Right chest wall incision and debridement. PREOPERATIVE DIAGNOSIS: Right chest wall mass with seroma versus hematoma. POSTOPERATIVE DIAGNOSIS: Right chest wall calcified hematoma. STAFF SURGEON: Jose Mcnair MD PAINTER SET: Bernardo Pitt PA-C ANESTHESIA: General. DESCRIPTION OF PROCEDURE: The patient was brought into the operating room and placed on the operating table in supine position. Her right chest was prepped and draped in usual fashion. My car rental sales assistant helped with prepping, draping, excision of the tissue and packing of the wound. Initially incision was made elliptically more lateral excising a part of the old scar. Carried dissection encountering what appeared to be a calcified capsule, opening the capsule and encountering what appeared to be very old soft hematoma. This tissue was cultured and it was also sent for pathology. On further inspection, it was apparent that the patient had very severe wound calcification of the capsule around the old hematoma. I did not feel that just evacuating the hematoma would heal appropriately in this patient. Therefore, the majority of the capsule from the subcutaneous tissue was excised as well as some of it from the chest wall. The wound did have to be opened medial and lateral to expose viable tissue. I did not feel closure was appropriate and that it would not heal well. I felt that in the future the patient would need a wound VAC to allow this area to heal. She did have a history of prior mastectomy and radiation treatment. She also had a history of perioperatively having severe pain and this did worsen over the past year to months because of the calcification and scar tissue. The patient did tolerate this part of the procedure well and was transferred to recovery room in stable condition. I attest to the content of the Intraoperative Record and any orders documented therein. Any exception s are noted below.
[2018-06-13 14:19] LABS: Hematocrit (blood only) 43.8 % (37-47); Hemoglobin 13.8 g/dL (12.0-16.0); Mean Corpuscular Hgb Conc 31.5 g/dL (32-36); Mean Corpuscular Volume 93.2 fL (80-100); Mean Platelet Volume 10.2 fL (7.4-10.4); Platelet Count 157 K/uL (130-400); RDW Coefficient of Variation 14.3 % (11.5-14.5); RDW Standard Deviation 48.6 fL (36.4-46.3); White Blood Count 8.29 K/uL (4.8-10.8)
--- NOTE | 2018-06-13 14:28 | Infectious Disease Consult ---
Date of Consultation June 13, 2018 Assessment & Plan (1) Chest wall abscess: 77 yo female with right chest wall collection, likely hematoma, with possible secondary infection. Will treat with clindamycin pending final culture results. Will follow. History of Present Illness Reason for Consultation: medical management - s/p debridement right chest wall Attending Physician: Jose Mcnair MD, FACS History of Present Illness 77-year-old female with complicated medical history including type 2 diabetes mellitus, hypertension, hyperlipidemia, atrial fibrillation, coronary artery disease, breast cancer status post right mastectomy, who apparently has been suffering multiple falls over the past several months according to patient's family. He developed significant right chest wall swelling, and ultimately was seen by surgery and admitted for incision and drainage. At time of surgery, she was found to have what appeared to be a large calcified hematoma which was resected, and patient was left with large open wound. Now under evaluation for wound VAC. Gram stain of operative specimen shows no organisms, culture is pending. No report of fever until the day of admission. Patient denies any significant other associated complaints. Allergies Allergy/AdvReac Type Severity Reaction Status Date / Time bee venom protein (honey bee) Allergy Severe SWELLING Verified 06/13/18 09:44 SOB iodine Allergy Severe RASH Verified 06/13/18 09:44 codeine Allergy Intermediate SWELLING Verified 06/13/18 09:44 metformin Allergy Intermediate Diarrhea Verified 06/13/18 09:44 Penicillins Allergy Intermediate RASH/HIVES Verified 06/13/18 09:44 procaine Allergy Mild NOVOCAINE-R Verified 06/13/18 09:44 AKILAH Cephalosporins Allergy Unknown UNKNOWN Verified 06/13/18 09:44 clarithromycin Allergy . Verified 06/13/18 09:44 Home Medications Home Medications Medication Instructions Recorded Confirmed Type albuterol sulfate 1 vial INHALATION QID PRN 12/23/17 06/13/18 History albuterol sulfate [ProAir HFA] 2 puff INHALATION QID PRN 12/23/17 06/13/18 History aspirin [Aspir-81] 81 mg PO DAILY 12/23/17 06/13/18 History atorvastatin [Lipitor] 40 mg PO DAILY 12/23/17 06/13/18 History budesonide-formoterol [Symbicort] 2 puff INHALATION BID 12/23/17 06/13/18 History citalopram [Celexa] 40 mg PO DAILY 12/23/17 06/13/18 History furosemide [Lasix] 20 mg PO DAILY 12/23/17 06/13/18 History gabapentin [Neurontin] 1,200 mg PO BID 12/23/17 06/13/18 History insulin glargine [Lantus U-100 20 unit SUBCUT BID 12/23/17 06/13/18 History Insulin] ipratropium bromide 2 spray INTRANASAL TID PRN 12/23/17 06/13/18 History loperamide [Imodium A-D] 2 mg PO Q6 PRN 12/23/17 06/13/18 History metoclopramide HCl [Reglan] 10 mg PO ACHS PRN 12/23/17 06/13/18 History metoprolol tartrate [Lopressor] 100 mg PO BID 12/23/17 06/13/18 History nystatin [Nystop] 1 applic TOPICAL TID PRN 12/23/17 06/13/18 History pantoprazole [Protonix] 40 mg PO DAILY 12/23/17 06/13/18 History potassium chloride [Klor-Con 10] 10 meq PO DAILY 12/23/17 06/13/18 History tramadol [Ultram] 50 - 100 mg PO Q6 PRN 12/23/17 06/13/18 History meloxicam 7.5 mg PO BID PRN 05/05/18 06/13/18 History oxycodone 1 - 2 mg PO Q8H PRN 05/05/18 06/13/18 History Patient History Family History Sister Family history of diabetes mellitus Social History Preferred Language: [place] Communication Ability: Effective Green Chainer Required: No Beliefs That Will Affect Care: None Current Living Situation: Spouse Other Information That Helps Us Care for You: No Feels Safe at Home: Yes Smoking Status: Never smoker Hx Alcohol Use: No Hx Substance Use: No Review of Systems All systems were reviewed and are negative except as per HPI Physical Exam Vital Signs (Past 24 Hours): Last Vital Signs Temp 37.4 C 06/13/18 13:00 Pulse 91 H 06/13/18 14:10 Resp 18 06/13/18 14:10 BP 139/80 06/13/18 14:10 Pulse Ox 95 06/13/18 14:10 Constitutional: WD/WN, vitals as above comfortable; no acute distress Eyes: PERRL, conjunctivae normal, anicteric sclerae ENMT: external ear and nose normal, oropharynx normal Neck: trachea midline, no thyromegaly neck nontender Respiratory: normal respiratory effort, lungs clear to auscultation normal percussion; does not use accessory muscles Cardiovascular: Rate/Rhythm: regular rate and regular rhythm Heart Sounds: normal S1 and normal S2; no gallop, no murmur and no cardiac rub Vessels: normal peripheral pulses; no JVD Gastrointestinal (Abdomen): normal bowel sounds, soft, nontender, no hepatosplenomegaly Musculoskeletal: no cyanosis or clubbing, extremities motor strength 5/5 Spine: thoracic spine normal to inspection and lumbar spine normal to inspection; no cervical spinal tenderness Skin: no rashes, warm and dry normal turgor Dressing intact right chest wall Neurologic: patellar DTR's 2+ bilat, sensation intact no focal motor deficits Psychiatric: A+Ox3, euthymic affect Orientation: cooperative Lymphatic: no cervical or axillary lymphadenopathy no inguinal lymphadenopathy Results & Data Laboratory Results Short CBC 06/13/18 Range/Units 13:55 WBC 8.29 (4.8-10.8) K/uL Hgb 13.8 (12.0-16.0) g/dL Hct 43.8 (37-47) % Plt Count 157 (130-400) K/uL Diagnostic Findings Microbiology 06/13/18 11:00 Chest Gram Stain - Final
[2018-06-13 14:42] LABS: Prothrombin Time 10.2 Seconds (9.0-12.0)
[2018-06-13] MEDS: OXYCODONE HCL IR 5 MG TAB (IMMEDIATE RELEASE) PO PRN ×2 (14:47→20:13)
--- NOTE | 2018-06-13 14:59 | Mammography Report ---
ULTRASOUND OF RIGHT BREAST: 06/13/2018 CLINICAL HISTORY: 77-year-old woman presents for ultrasound-guided skin marking. She has a post maste ctomy collection that is palpable and painful in the right breast, and this collection was noted to h ave an increasingly thickened rind on recent ultrasound. COMPARISON: Comparison is made to exams dated: 04/19/2018 mammogram, 08/25/2017 mammogram, 04/30/2016 ma mmogram, 09/19/2015 ultrasound biopsy, 09/11/2015 mammogram, and 09/11/2015 ultrasound - [facility]. FINDINGS: Targeted ultrasound was performed of the right chest around the area of prior mastectomy an d an area of concern pointed out by the patient. The heterogeneous collection located superior, infe rior, medial and lateral to the mastectomy scar is again identified. The borders were marked with a sharpie. The patient tolerated the ultrasound well and left the department in satisfactory condition . IMPRESSION: Ultrasound-guided skin marking, as above. Maya Shin M.D. ay/:06/13/2018 12:08:33 Laboratory Machinist: Maya Shin, [facility] BI-RADS Code: n/a
--- NOTE | 2018-06-13 16:33 | Wound Consultation ---
Date of Consultation June 13, 2018 Assessment & Plan (1) Surgical wound present: Wound is still oozing some blood. Will leave it alone overnight and plan on placing an irrigating wound VAC in the morning. Due to history of recurrent infection would consider silver foam after 2-3 days of irrigating wound VAC. We will continue to follow along with the patient. Thank you for allowing me to participate in the care of this patient. Please do not hesitate to call with any questions. (2) Chest wall abscess: Antibiotics per infectious disease. History of Present Illness Attending Physician: Jose Mcnair MD, FACS Is a 77-year-old female with a history of anxiety, asthma, paroxysmal atrial fibrillation, type 2 diabetes, hypertension, hyperlipidemia, morbid obesity and history of right breast cancer status post right mastectomy and chemo/radiation, status post I&D for right chest wall collection.I am asked to see the patient for evaluation for possible wound VAC. Collection in the right chest wall is likely calcified hematoma with questionable secondary infection. Infectious disease is following and has patient on clindamycin empirically while awaiting culture results. Allergies Allergy/AdvReac Type Severity Reaction Status Date / Time bee venom protein (honey bee) Allergy Severe SWELLING Verified 06/13/18 09:44 SOB iodine Allergy Severe RASH Verified 06/13/18 09:44 codeine Allergy Intermediate SWELLING Verified 06/13/18 09:44 metformin Allergy Intermediate Diarrhea Verified 06/13/18 09:44 Penicillins Allergy Intermediate RASH/HIVES Verified 06/13/18 09:44 procaine Allergy Mild NOVOCAINE-R Verified 06/13/18 09:44 AKILAH Cephalosporins Allergy Unknown UNKNOWN Verified 06/13/18 09:44 clarithromycin Allergy . Verified 06/13/18 09:44 Home Medications Home Medications Medication Instructions Recorded Confirmed Type albuterol sulfate 1 vial INHALATION QID PRN 12/23/17 06/13/18 History albuterol sulfate [ProAir HFA] 2 puff INHALATION QID PRN 12/23/17 06/13/18 History aspirin [Aspir-81] 81 mg PO DAILY 12/23/17 06/13/18 History atorvastatin [Lipitor] 40 mg PO DAILY 12/23/17 06/13/18 History budesonide-formoterol [Symbicort] 2 puff INHALATION BID 12/23/17 06/13/18 History citalopram [Celexa] 40 mg PO DAILY 12/23/17 06/13/18 History furosemide [Lasix] 20 mg PO DAILY 12/23/17 06/13/18 History gabapentin [Neurontin] 1,200 mg PO BID 12/23/17 06/13/18 History insulin glargine [Lantus U-100 20 unit SUBCUT BID 12/23/17 06/13/18 History Insulin] ipratropium bromide 2 spray INTRANASAL TID PRN 12/23/17 06/13/18 History loperamide [Imodium A-D] 2 mg PO Q6 PRN 12/23/17 06/13/18 History metoclopramide HCl [Reglan] 10 mg PO ACHS PRN 12/23/17 06/13/18 History metoprolol tartrate [Lopressor] 100 mg PO BID 12/23/17 06/13/18 History nystatin [Nystop] 1 applic TOPICAL TID PRN 12/23/17 06/13/18 History pantoprazole [Protonix] 40 mg PO DAILY 12/23/17 06/13/18 History potassium chloride [Klor-Con 10] 10 meq PO DAILY 12/23/17 06/13/18 History tramadol [Ultram] 50 - 100 mg PO Q6 PRN 12/23/17 06/13/18 History meloxicam 7.5 mg PO BID PRN 05/05/18 06/13/18 History oxycodone 1 - 2 mg PO Q8H PRN 05/05/18 06/13/18 History Patient History Medical History Chronic chest pain (Acute) Has been evaluated by cardio, ruled to be non-cardiac in origin. Anxiety Asthma RARELY NEEDS PRN INH Atrial fibrillation Paroxysmal, not on anticoagulation. Per cardio 12/25/15, "since she has not had a paroxysmal for many years, no therapy will be initiated today. Given her elevated CHADSVASC score, though, would recommend anticoagulation therapy if she were to develop any recurrent episodes of A. fib in the future." Chronic back pain Depression Diabetes mellitus, type 2 IDDM. HgA1C 6.6% 05/03/18 Diverticular disease GERD (gastroesophageal reflux disease) Hiatal hernia History of right breast cancer S/P RT MASTECTOMY, + CHEMO/RADIATION Hyperlipidemia Hypertension Migraine Morbid obesity Myocardial Infarction > 20 YEARS AGO Nonobstructive atherosclerosis of coronary artery Per cath 2008 Osteoarthritis Surgical History History of appendectomy History of back surgery HARDWARE PRESENT History of bilateral tubal ligation History of breast biopsy History of cardiac cath 5 YEARS AGO - [facility] - REASON? 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: No Beliefs That Will Affect Care: None Current Living Situation: Spouse Other Information That Helps Us Care for You: No Feels Safe at Home: Yes Smoking Status: Never smoker Hx Alcohol Use: No Hx Substance Use: No Review of Systems View of systems negative except per HPI Physical Exam Vital Signs (Past 24 Hours): Last Vital Signs Temp 36.8 C 06/13/18 15:08 Pulse 86 06/13/18 15:08 Resp 18 06/13/18 15:08 BP 139/77 06/13/18 15:08 Pulse Ox 92 06/13/18 15:08 Constitutional: WD/WN, vitals as above Eyes: PERRL, conjunctivae normal, anicteric sclerae ENMT: Ears: no hearing impairment Respiratory: normal respiratory effort, lungs clear to auscultation Cardiovascular: RRR, no murmur, no edema Gastrointestinal (Abdomen): normal bowel sounds, soft, nontender, no hepatosplenomegaly Skin: Patient status post I&D of the right chest wall. Large calcified hematoma was removed. Wound measuring 4.9 x 15.1 cm. This is a surface area of 73.99 cm. There is exposed bone, tendon and muscle. Periwound intact without inflammation. There is minimal bloody drainage. Neurologic: awake; not confused Psychiatric: A+Ox3, euthymic affect
--- NOTE | 2018-06-13 16:38 | Consultation ---
Date of Consultation June 13, 2018 Assessment & Plan (1) Chest wall abscess: S/p right chest wall abscess removal with Dr. Mcnair on 06/13. - Currently on clindamycin per primary team - ID consult pending - Will need wound vac per surgery notes (2) Atrial fibrillation: Paroxysmal. Presently in normal sinus on exam. - Not on anticoagulation for the infrequent nature of her afib episodes - Monitor HR; if concern for afib, will get repeat EKG and consider anticoagulation discussion (3) Diabetes mellitus, type 2: A1c was 6.6% in 04/2018. - Continue Lantus 20 units BID - Home dosing - Sliding scale insulin - Continue gabapentin (4) Hypertension: On beta-brando and diuretic as outpatient. BP presently 140/80. - Continue home meds - Monitor BP (5) Asthma: Per outpatient notes, she has occasional asthma issues related to the weather. No present shortness of breath or concerns for exacerbation. - Continue albuterol PRN (6) Depression: In outpatient notes; however, not on any outpatient medications. - Monitor for symptoms (7) Lower back pain: Chronic lower back pain with multiple prior surgeries. As outpatient uses tramadol and oxycodone. - Continue pain control in the hospital cautiously (8) DVT prophylaxis: Heparin 5000 units Q12h History of Present Illness Attending Physician: Jose Mcnair MD, [facility] History of Present Illness 77yo W w/ hx of remote breast cancer who presents for excision of right breast mass. Mass has been increasingly painful over the last few weeks, and Dr. Mcnair decided to drain the hematoma/seroma that was there. Per op report, there was significant scarring and Dr. Mcnair had to remove the entire capsule with some tis jarod excision. On interview, the patient is having some pain at the surgical site and in her back with the back pain being chronic. Otherwise reports no fevers/chills, chest pain, shortness of breath, abdominal pain, nausea, or vomiting. Allergies Allergy/AdvReac Type Severity Reaction Status Date / Time bee venom protein (honey bee) Allergy Severe SWELLING Verified 06/13/18 09:44 SOB iodine Allergy Severe RASH Verified 06/13/18 09:44 codeine Allergy Intermediate SWELLING Verified 06/13/18 09:44 metformin Allergy Intermediate Diarrhea Verified 06/13/18 09:44 Penicillins Allergy Intermediate RASH/HIVES Verified 06/13/18 09:44 procaine Allergy Mild NOVOCAINE-R Verified 06/13/18 09:44 AKILAH Cephalosporins Allergy Unknown UNKNOWN Verified 06/13/18 09:44 clarithromycin Allergy . Verified 06/13/18 09:44 Home Medications Home Medications Medication Instructions Recorded Confirmed Type albuterol sulfate 1 vial INHALATION QID PRN 12/23/17 06/13/18 History albuterol sulfate [ProAir HFA] 2 puff INHALATION QID PRN 12/23/17 06/13/18 Histo ry aspirin [Aspir-81] 81 mg PO DAILY 12/23/17 06/13/18 History atorvastatin [Lipitor] 40 mg PO DAILY 12/23/17 06/13/18 History budesonide-formoterol [Symbicort] 2 puff INHALATION BID 12/23/17 06/13/18 History citalopram [Celexa] 40 mg PO DAILY 12/23/17 06/13/18 History furosemide [Lasix] 20 mg PO DAILY 12/23/17 06/13/18 History gabapentin [Neurontin] 1,200 mg PO BID 12/23/17 06/13/18 History insulin glargine [Lantus U-100 20 unit SUBCUT BID 12/23/17 06/13/18 History Insulin] ipratropium bromide 2 spray INTRANASAL TID PRN 12/23/17 06/13/18 History loperamide [Imodium A-D] 2 mg PO Q6 PRN 12/23/17 06/13/18 History metoclopramide HCl [Reglan] 10 mg PO ACHS PRN 12/23/17 06/13/18 History metoprolol tartrate [Lopressor] 100 mg PO BID 12/23/17 06/13/18 History nystatin [Nystop] 1 applic TOPICAL TID PRN 12/23/17 06/13/18 History pantoprazole [Protonix] 40 mg PO DAILY 12/23/17 06/13/18 History potassium chloride [Klor-Con 10] 10 meq PO DAILY 12/23/17 06/13/18 History tramadol [Ultram] 50 - 100 mg PO Q6 PRN 12/23/17 06/13/18 History meloxicam 7.5 mg PO BID PRN 05/05/18 06/13/18 History oxycodone 1 - 2 mg PO Q8H PRN 05/05/18 06/13/18 History Patient History Medical History Chronic chest pain (Acute) Has been evaluated by cardio, ruled to be non-cardiac in origin. Anxiety Asthma RARELY NEEDS PRN INH Atrial fibrillation Paroxysmal, not on anticoagulation. Per cardio 12/25/15, "since she has not had a paroxysmal for many years, no therapy will be initiated today. Given her elevated CHADSVASC score, though, would recommend anticoagulation therapy if she were to develop any recurrent episodes of A. fib in the future." Chronic back pain Depression Diabetes mellitus, type 2 IDDM. HgA1C 6.6% 05/03/18 Diverticular disease GERD (gastroesophageal reflux disease) Hiatal hernia History of right breast cancer S/P RT MASTECTOMY, + CHEMO/RADIATION Hyperlipidemia Hypertension Migraine Morbid obesity Myocardial Infarction > 20 YEARS AGO Nonobstructive atherosclerosis of coronary artery Per cath 2008 Osteoarthritis Surgical History History of appendectomy History of back surgery HARDWARE PRESENT History of bilateral tubal ligation History of breast biopsy History of cardiac cath 5 YEARS AGO - [facility] - REASON? - NO STENTS/ANGIOPLASTY History of carpal tunnel release BL History of cataract surgery History of cholecystectomy History of dilatation and curettage History of hysterectomy History of partial gastrectomy History of right mastectomy NO BP/IV RUE History of tonsillectomy History of tooth extraction History of total knee replacement BL History of total shoulder replacement RT Family History Sister Family history of diabetes mellitus Social History Preferred Language: Singaporean Communication Ability: Effective Lead C Developer Required: No Beliefs That Will Affect Care: None Current Living Situation: Spouse Other Information That Helps Us Care for You: No Feels Safe at Home: Yes Smoking Status: Never smoker Hx Alcohol Use: No Hx Substance Use: No Review of Systems Constitutional: no fever, no chills and no sweats Eyes: no diplopia Ear, Nose, Mouth, Throat: no ear trauma, no nasal discharge and no dental pain Respiratory: no cough, no chest congestion and no dyspnea Cardiovascular: no chest pain, no dyspnea on exertion, no palpitations and no syncope Gastrointestinal: no abdominal pain, no belching, no constipation, no diarrhea/loose stools, no blood in stools and no melena Musculoskeletal: + back pain; no joint pain and no muscle weakness Integumentary: + breast skin changes (Incision); no rash, no skin ulcer and no erythema Neurologic: no generalized weakness, no loss of sensation, no numbness and no paresthesia Psychiatric: no depression and no anxiety Endocrine: no fatigue, no polydipsia and no polyphagia Physical Exam Vital Signs (Past 24 Hours): Last Vital Signs Temp 36.8 C 06/13/18 15:08 Pulse 86 06/13/18 15:08 Resp 18 06/13/18 15:08 BP 139/77 06/13/18 15:08 Pulse Ox 92 06/13/18 15:08 Constitutional: WD/WN, vitals as above Eyes: EOM intact bilaterally; no conjunctival abnormality ENMT: external ear and nose normal, oropharynx normal Neck: trachea midline, no thyromegaly normal visual inspection Respiratory: normal respiratory effort, lungs clear to auscultation no respiratory distress Cardiovascular: RRR, no murmur, no edema Gastrointestinal (Abdomen): Inspection/Auscultation: abdomen normal to inspection; abdomen not distended Musculoskeletal: no cyanosis or clubbing, extremities motor strength 5/5 Skin: no rashes, warm and dry Right breast bandaged Neurologic: moves all extremities and awake Psychiatric: Orientation: alert, oriented to person and cooperative
[2018-06-13] MEDS ORDERED: CARBOHYDRATES FOR HYPOGLYCEMIA PO PRN (16:49)
[2018-06-13] MEDS ORDERED: GLUCAGON FOR INJ 1 MG VIAL SQ PRN (16:49)
[2018-06-13] MEDS ORDERED: DEXTROSE 50% 50 ML SYRINGE IV PRN (16:49)
[2018-06-13] MEDS ORDERED: GLUCOSE 40% GEL 15 GM TUBE PO PRN (16:49)
[2018-06-13] MEDS ORDERED: GLUCOSE 10 TABS/TUBE PO PRN (16:49)
[2018-06-13] MEDS: CLINDAMYCIN 600 MG in DEXTROSE 5% 50 ML IV SCH (18:02)
[2018-06-13] MEDS: INSULIN ASPART 100 UNITS/ML 3 ML PEN SC SCH ×2 (18:34→21:06)
[2018-06-13] MEDS: INSULIN GLARGINE SOLOSTAR 100 UNITS/ML 3 ML PEN SC SCH (21:04)
[2018-06-13] MEDS: BUDESONIDE/FORMOTEROL FUMARATE 80/4.5 60 PUFFS/INHALER INH SCH (21:07)
[2018-06-13] MEDS: METOPROLOL TARTRATE 100 MG TAB PO SCH (21:09)
[2018-06-13] MEDS: GABAPENTIN 600 MG TAB PO SCH (21:09)
[2018-06-14] MEDS: OXYCODONE HCL IR 5 MG TAB (IMMEDIATE RELEASE) PO PRN ×3 (01:19→17:36)
[2018-06-14] MEDS: CLINDAMYCIN 600 MG in DEXTROSE 5% 50 ML IV SCH (01:49)
[2018-06-14 06:43] LABS: Albumin Level 2.5 gm/dl (3.4-5.0); BUN Creatinine Ratio 16.9 (10-20); Calcium 7.6 mg/dl (8.5-10.1); Creatinine Clr Calc Pharmacy 54.7 ml/min; Est GFR (African American) 55.1; Est GFR (Non-African American) 47.5; Potassium 4.2 mmol/L (3.5-5.1)
[2018-06-14 06:44] LABS: Albumin Globulin Ratio 0.8 (0.9-2); Bilirubin,Total 0.6 mg/dl (0.2-1); Globulin 3.2 gm/dl (2.5-4.0); Phosphorus 2.1 mg/dl (2.5-4.9); Total Protein 5.7 gm/dl (6.4-8.2)
[2018-06-14 07:01] LABS: Basophils # (auto) 0.01 K/uL (0-0.2); Basophils % (auto) 0.1 %; Eosinophils # (auto) 0.13 K/uL (0-0.5); Eosinophils % (auto) 1.9 %; Hematocrit (blood only) 39.8 % (37-47); Hemoglobin 12.5 g/dL (12.0-16.0); Immature Granulocytes # (auto) 0.01 K/uL (0.00-0.02); Immature Granulocytes % (auto) 0.1 %; Lymphocytes % (auto) 26.5 %; Mean Corpuscular Volume 92.6 fL (80-100); Mean Platelet Volume 9.9 fL (7.4-10.4); Monocytes # (auto) 0.78 K/uL (0.11-0.59); Monocytes % (auto) 11.5 %; Neutrophils # (auto) 4.07 K/uL (1.4-6.5); Neutrophils % (auto) 59.9 %; Platelet Count 137 K/uL (130-400); RDW Coefficient of Variation 14.5 % (11.5-14.5); RDW Standard Deviation 49.2 fL (36.4-46.3)
[2018-06-14 07:06] LABS: Mean Corpuscular Hgb Conc 31.4 g/dL (32-36)
--- NOTE | 2018-06-14 07:27 | Progress Note ---
Date of Service June 14, 2018 Assessment & Plan (1) Surgical wound present: cont wound care, vac at some point- wound clinic followup will try dose of ancef- unknown reaction in past- may consider d/c tomorrow on keflex if stable Subjective awake, alert- doing well min pain wound care team helping with wound Physical Exam Vital Signs (Past 24 Hours): Last Vital Signs Temp 37.7 C H 06/14/18 07:11 Pulse 92 H 06/14/18 07:11 Resp 16 06/14/18 07:11 BP 152/89 H 06/14/18 07:11 Pulse Ox 92 06/14/18 07:[address]- no active bleeding, mild drainage
--- NOTE | 2018-06-14 07:43 | Anesthesiology Progress Note ---
Date of Service June 14, 2018 Anesthesia Post Procedure Vital Signs Vital Signs: Temp Pulse Pulse Pulse Resp BP Pulse Ox 06/14/18 07:11 37.7 C H 92 H 16 152/89 H 92 06/14/18 03:28 37.2 C 83 18 126/87 94 06/13/18 23:55 38.0 C H 82 18 108/61 92 06/13/18 20:58 87 134/74 06/13/18 15:08 36.8 C 86 18 139/77 92 06/13/18 14:10 91 H 18 139/80 95 06/13/18 13:31 83 16 99/65 L 95 06/13/18 13:00 37.4 C 84 16 140/81 95 06/13/18 12:40 36.8 C 80 22 148/67 H 98 06/13/18 12:30 81 26 H 153/89 H 96 06/13/18 12:20 100 H 26 H 162/83 H 98 06/13/18 12:10 101 H 21 130/88 96 06/13/18 12:00 84 18 167/80 H 100 06/13/18 11:53 37.3 C 88 18 190/114 H 99 06/13/18 09:50 37.9 C H 82 24 144/90 H 95 Pain Intensity Right Chest: Pain Intensity: 8 Notes Mental Status: alert / awake / arousable and participated in evaluation Patient Amnestic to Procedure: Yes Nausea / Vomiting: adequately controlled Pain: improving with treatment and see Notes below Airway Patency, RR, SpO2: stable & adequate BP & HR: stable & adequate Hydration State: stable & adequate Anesthetic Complications: no major complications apparent Notes: patient just had dressing changed so pain is worse. She reports the pain medication is effective in keeping it controlled and will ask for more.
--- NOTE | 2018-06-14 07:58 | Wound Progress Note ---
Date of Service June 14, 2018 Assessment & Plan (1) Surgical wound present: Will apply choice cleanse wound VAC to help stimulate growth and remove debris. Continue antibiotics per infectious disease. We will continue to follow. We will see patient in the office a week after discharge. Subjective Patient awake laying in bed. She has no new complaints this morning. Denying any pain. Review of Systems All systems reviewed & are unremarkable except as noted in HPI & below Physical Exam Vital Signs (Past 24 Hours): Last Vital Signs Temp 37.7 C H 06/14/18 07:11 Pulse 92 H 06/14/18 07:11 Resp 16 06/14/18 07:11 BP 152/89 H 06/14/18 07:11 Pulse Ox 92 06/14/18 07:11 Constitutional: WD/WN, vitals as above Skin: Wound measuring 4.9 x 15.1 cm. Wound is covered with slough. Bleeding is stopped. Neurologic: awake; not confused Psychiatric: A+Ox3, euthymic affect
[2018-06-14] MEDS: ONDANSETRON INJ 2 MG/ML 2 ML VIAL IV PRN (08:26)
[2018-06-14] MEDS: CEFAZOLIN 2000MG 2,000 MG/15 ML SYR IV SCH ×2 (08:47→15:50)
[2018-06-14] MEDS: BUDESONIDE/FORMOTEROL FUMARATE 80/4.5 60 PUFFS/INHALER INH SCH ×2 (09:14→21:13)
[2018-06-14] MEDS: PANTOprazole 40 MG TAB PO SCH (09:19)
[2018-06-14] MEDS: POTASSIUM CHLORIDE 10 MEQ TABCR PO SCH (09:19)
[2018-06-14] MEDS: METOPROLOL TARTRATE 100 MG TAB PO SCH ×2 (09:20→21:13)
[2018-06-14] MEDS: ATORVASTATIN 40 MG TAB PO SCH (09:23)
[2018-06-14] MEDS: FUROSEMIDE 20 MG TAB PO SCH (09:24)
[2018-06-14] MEDS: GABAPENTIN 600 MG TAB PO SCH ×2 (09:24→21:12)
[2018-06-14] MEDS: INSULIN GLARGINE SOLOSTAR 100 UNITS/ML 3 ML PEN SC SCH ×2 (09:26→21:11)
[2018-06-14] MEDS: INSULIN ASPART 100 UNITS/ML 3 ML PEN SC SCH ×4 (09:28→21:11)
[2018-06-14] MEDS: HEPARIN SOD 5,000 UNIT/0.5 ML VIAL SQ SCH ×2 (09:29→21:11)
[2018-06-14 09:51] LABS: Appearance Urine Clear (Clear); Bacteria Urine Automated Negative (Negative); Bilirubin Urine Negative (Negative); Blood Urine Negative (Negative); Color Urine Yellow; Glucose Urine UA 1+ (Negative); Ketones Urine Negative (Negative); Leukocyte Esterase Urine Trace (Negative); Nitrite Urine Negative (Negative); Protein Urine Negative (Negative); RBC Urine Automated 0-4 /hpf (0-4); Specific Gravity Urine 1.021 (1.000-1.030); Urobilinogen Urine Negative (Negative)
--- NOTE | 2018-06-14 13:17 | Hospitalist Progress Note ---
Date of Service June 14, 2018 Assessment & Plan (1) Chest wall abscess: S/p right chest wall abscess removal with Dr. Mcnair on 06/13. - Currently on cefazolin per primary team - Plan for wound vac today - Follow wound cultures - Still having some fevers (last one was 38.0 on 06/13, with a 37.7 on 06/14) (2) Atrial fibrillation: Paroxysmal. Presently in normal sinus on exam. - Not on anticoagulation for the infrequent nature of her afib episodes - Monitor HR; if concern for afib, will get repeat EKG and consider anticoagulation discussion (3) Diabetes mellitus, type 2: A1c was 6.6% in 04/2018. - Continue Lantus 15 units BID - (Home dosing is 20 units BID.) - Sliding scale insulin - Continue gabapentin (4) Hypertension: On beta-brando and diuretic as outpatient. BP presently 140/80 - 150/80. - Continue home meds - Monitor BP (5) Asthma: Per outpatient notes, she has occasional asthma issues related to the weather. No present shortness of breath or concerns for exacerbation. - Continue albuterol PRN (6) Depression: In outpatient notes; however, not on any outpatient medications. - Monitor for symptoms (7) Lower back pain: Chronic lower back pain with multiple prior surgeries. As outpatient uses tramadol and oxycodone. - Continue pain control in the hospital cautiously (8) DVT prophylaxis: Heparin 5000 units Q12h Subjective 77yo F w/ hx of remote right-sided breast cancer who presented as medical consult for right breast mass removal. Minimal pain in the surgical site. Back pain is stable. Reports no fevers/ch ills, chest pain, shortness of breath, abdominal pain, nausea, or vomiting. Physical Exam Vital Signs (Past 24 Hours): Last Vital Signs Temp 37.7 C H 06/14/18 07:11 Pulse 86 06/14/18 09:15 Resp 16 06/14/18 07:11 BP 149/77 H 06/14/18 09:15 Pulse Ox 92 06/14/18 07:11 Constitutional: WD/WN, vitals as above Eyes: EOM intact bilaterally; no conjunctival abnormality ENMT: external ear and nose normal, oropharynx normal Neck: trachea midline, no thyromegaly normal visual inspection Respiratory: normal respiratory effort, lungs clear to auscultation no respiratory distress Cardiovascular: RRR, no murmur, no edema Gastrointestinal (Abdomen): Inspection/Auscultation: abdomen normal to inspection; abdomen not distended Musculoskeletal: no cyanosis or clubbing, extremities motor strength 5/5 Skin: no rashes, warm and dry Neurologic: moves all extremities and awake Psychiatric: Orientation: alert, oriented to person and cooperative
[2018-06-15] MEDS: CEFAZOLIN 2000MG 2,000 MG/15 ML SYR IV SCH ×2 (00:17→08:38)
[2018-06-15] MEDS: ONDANSETRON INJ 2 MG/ML 2 ML VIAL IV PRN ×2 (00:22→07:05)
--- NOTE | 2018-06-15 06:36 | Progress Note ---
Date of Service June 15, 2018 Assessment & Plan (1) Hematoma, chest wall: plan d/c today if ok with other services- cont to monitor cult cont on Keflex as she has tolerated ancef f/u wound clinic and office Subjective doing well with wound vac in place wants to go home- [birth year] birthday today Physical Exam Vital Signs (Past 24 Hours): Last Vital Signs Temp 37.5 C 06/14/18 23:59 Pulse 98 H 06/15/18 01:55 Resp 20 06/15/18 01:55 BP 143/77 H 06/14/18 23:59 Pulse Ox 96 06/15/18 01:[address]
--- NOTE | 2018-06-15 07:57 | Wound Progress Note ---
Date of Service June 15, 2018 Assessment & Plan (1) Chest wall abscess: S/p right chest wall calcified hematoma removal with Dr. Mcnair on 06/13. Patient to be discharged today on keflex. Continue choice cleanse wound vac until discharge time. Will then switch patient to vac with silver foam. Will see patient in office on Wednesday. Thank you for allowing me to participate in the care of this patient. (2) Atrial fibrillation: (3) Diabetes mellitus, type 2: (4) Hypertension: (5) Asthma: (6) Depression: (7) Lower back pain: (8) DVT prophylaxis: Subjective Patient awake laying in bed. She denies any pain. States that she was started last night when the cold water began irrigating her. Tolerating wound VAC well. Wound like to go home today as it is her birthday. Review of Systems All systems reviewed & are unremarkable except as noted in HPI & below Physical Exam Vital Signs (Past 24 Hours): Last Vital Signs Temp 37.6 C H 06/15/18 07:29 Pulse 90 06/15/18 07:29 Resp 15 06/15/18 07:29 BP 150/93 H 06/15/18 07:29 Pulse Ox 93 06/15/18 07:29 Skin: Wound covered with a wound VAC.
[2018-06-15 08:06] LABS: Hematocrit (blood only) 39.8 % (37-47); Hemoglobin 12.6 g/dL (12.0-16.0); Mean Corpuscular Hgb Conc 31.7 g/dL (32-36); Mean Corpuscular Volume 93.6 fL (80-100); Mean Platelet Volume 10.1 fL (7.4-10.4); Platelet Count 134 K/uL (130-400); RDW Coefficient of Variation 14.9 % (11.5-14.5); RDW Standard Deviation 50.3 fL (36.4-46.3); Red Blood Count 4.25 M/uL (4.2-5.4); White Blood Count 6.77 K/uL (4.8-10.8)
[2018-06-15 08:08] LABS: Basophils # (auto) 0.01 K/uL (0-0.2); Basophils % (auto) 0.1 %; Eosinophils # (auto) 0.07 K/uL (0-0.5); Immature Granulocytes # (auto) 0.01 K/uL (0.00-0.02); Immature Granulocytes % (auto) 0.1 %; Lymphocytes # (auto) 1.17 K/uL (1.2-3.4); Lymphocytes % (auto) 17.3 %; Monocytes # (auto) 0.66 K/uL (0.11-0.59); Monocytes % (auto) 9.7 %; Neutrophils # (auto) 4.85 K/uL (1.4-6.5); Neutrophils % (auto) 71.8 %
[2018-06-15] MEDS: OXYCODONE HCL IR 5 MG TAB (IMMEDIATE RELEASE) PO PRN ×2 (08:14→12:30)
[2018-06-15] MEDS: GABAPENTIN 600 MG TAB PO SCH (08:15)
[2018-06-15] MEDS: POTASSIUM CHLORIDE 10 MEQ TABCR PO SCH (08:15)
[2018-06-15] MEDS: METOPROLOL TARTRATE 100 MG TAB PO SCH (08:15)
[2018-06-15] MEDS: PANTOprazole 40 MG TAB PO SCH (08:15)
[2018-06-15] MEDS: FUROSEMIDE 20 MG TAB PO SCH (08:15)
[2018-06-15] MEDS: ATORVASTATIN 40 MG TAB PO SCH (08:15)
[2018-06-15] MEDS: BUDESONIDE/FORMOTEROL FUMARATE 80/4.5 60 PUFFS/INHALER INH SCH (08:16)
[2018-06-15] MEDS: INSULIN GLARGINE SOLOSTAR 100 UNITS/ML 3 ML PEN SC SCH (08:43)
[2018-06-15] MEDS: HEPARIN SOD 5,000 UNIT/0.5 ML VIAL SQ SCH (08:43)
[2018-06-15] MEDS: INSULIN ASPART 100 UNITS/ML 3 ML PEN SC SCH ×2 (08:59→13:26)
--- NOTE | 2018-06-15 10:24 | Infectious Disease Progress Nt ---
Date of Service June 15, 2018 Assessment & Plan (1) Chest wall abscess: 77 yo female with right chest wall collection, likely hematoma, awaiting final culture results to determine whether secondarily infected. See no contraindication to cephalexin therapy pending final culture results. Subjective Review of Systems All systems reviewed & are unremarkable except as noted in HPI & below Patient seen in follow-up for right chest wall hematoma. States pain is well controlled. Offers no new complaints. No fever. Cultures remain negative to date. Physical Exam Vital Signs (Past 24 Hours): Last Vital Signs Temp 36.5 C 06/15/18 07:50 Pulse 88 06/15/18 07:50 Resp 23 06/15/18 07:50 BP 158/82 H 06/15/18 07:50 Pulse Ox 95 06/15/18 07:50 Constitutional: WD/WN, vitals as above comfortable; no acute distress Eyes: PERRL, conjunctivae normal, anicteric sclerae ENMT: external ear and nose normal, oropharynx normal Neck: trachea midline, no thyromegaly neck nontender Respiratory: normal respiratory effort, lungs clear to auscultation normal percussion; does not use accessory muscles Cardiovascular: Rate/Rhythm: regular rate and regular rhythm Heart Sounds: normal S1 and normal S2; no gallop, no murmur and no cardiac rub Vessels: normal peripheral pulses; no JVD Gastrointestinal (Abdomen): normal bowel sounds, soft, nontender, no hepatosplenomegaly Musculoskeletal: no cyanosis or clubbing, extremities motor strength 5/5 Spine: thoracic spine normal to inspection and lumbar spine normal to inspection; no cervical spinal tenderness Skin: no rashes, warm and dry normal turgor Neurologic: patellar DTR's 2+ bilat, sensation intact no focal motor deficits Psychiatric: A+Ox3, euthymic affect Orientation: cooperative Lymphatic: no cervical or axillary lymphadenopathy no inguinal lymphadenopathy Results & Data Laboratory Results Short CBC 06/15/18 Range/Units 07:28 WBC 6.77 (4.8-10.8) K/uL Hgb 12.6 (12.0-16.0) g/dL Hct 39.8 (37-47) % Plt Count 134 (130-400) K/uL Diagnostic Findings Microbiology 06/13/18 11:00 Chest Gram Stain - Final 06/13/18 11:00 Chest Aerobic and Anaerobic Culture - Preliminary No growth to date.
--- NOTE | 2018-06-16 06:41 | Hospitalist Progress Note ---
Date of Service Please note, the date of service for this note is June 15, 2018. The below date (June 16) is incorrect, but cannot be changed because [employer] locks it and it is uneditable. Awesome! June 16, 2018 Assessment & Plan (1) Chest wall abscess: S/p right chest wall abscess removal with Dr. Mcnair on 06/13. - Currently on cefazolin per primary team - Switch to Keflex on discharge - Follow up in wound clinic. - Follow wound cultures (2) Atrial fibrillation: Paroxysmal. Presently in normal sinus on exam. - Not on anticoagulation for the infrequent nature of her afib episodes - Monitor HR; if concern for afib, will get repeat EKG and consider anticoagulation discussion (3) Diabetes mellitus, type 2: A1c was 6.6% in 04/2018. - Continued Lantus 15 units BID = Return to home dose on discharge. - Continue gabapentin (4) Hypertension: On beta-brando and diuretic as outpatient. BP presently 140/80 - 150/80. - Continue home meds - Monitor BP (5) Asthma: Per outpatient notes, she has occasional asthma issues related to the weather. No present shortness of breath or concerns for exacerbation. - Continue albuterol PRN (6) Depression: In outpatient notes; however, not on any outpatient medications. - Monitor for symptoms (7) Lower back pain: Chronic lower back pain with multiple prior surgeries. As outpatient uses tramadol and oxycodone. - Continue pain control in the hospital cautiously (8) DVT prophylaxis: Heparin 5000 units Q12h Subjective Patient is doing well. No major complaints. She has minimal site pain. Ready to go home. Patient seen in follow-up for left chest wall hematoma. Offers no new complaints. Remains afebrile. Cultures remain negative to date. Review of Systems Constitutional: no fever, no chills and no sweats Eyes: no diplopia Ear, Nose, Mouth, Throat: no ear trauma, no nasal discharge and no dental pain Respiratory: no cough, no chest congestion and no dyspnea Cardiovascular: no chest pain, no dyspnea on exertion, no palpitations and no syncope Gastrointestinal: no abdominal pain, no belching, no constipation, no diarrhea/loose stools, no blood in stools and no melena Musculoskeletal: no back pain, no joint pain and no muscle weakness Integumentary: no rash, no skin ulcer and no erythema Neurologic: no generalized weakness, no loss of sensation, no numbness and no paresthesia Psychiatric: no depression and no anxiety Endocrine: no fatigue, no polydipsia and no polyphagia Physical Exam Constitutional: WD/WN, vitals as above Eyes: EOM intact bilaterally; no conjunctival abnormality ENMT: external ear and nose normal, oropharynx normal Neck: trachea midline, no thyromegaly normal visual inspection Respiratory: normal respiratory effort, lungs clear to auscultation no respiratory distress Cardiovascular: RRR, no murmur, no edema Gastrointestinal (Abdomen): Inspection/Auscultation: abdomen normal to inspection; abdomen not distended Musculoskeletal: no cyanosis or clubbing, extremities motor strength 5/5 Skin: no rashes, warm and dry Neurologic: moves all extremities and awake Psychiatric: Orientation: alert, oriented to person and cooperative
--- NOTE | 2018-06-16 11:59 | Coding Query ---
CODING QUERY To promote full compliance with coding requirements relating to patient care, provider participation is requested in all cases of coordinate measuring machine operator uncertainty. Please assist us with the question(s) below: Coding Question(s): 1. Please clarify below, in your clinical opinion regarding the Hematoma of the Chest Wall s/p mastectomy. ( ) This is likely a Postoperative Complication (x ) This is Not a Postoperative Complication 2. Please clarify below, regarding the depth of the Hematoma of the Chest Wall ( ) skin/subcutaneous ( x ) muscle ( ) other: please specify 3. Please specify below regarding documentation on the Operative Report of, "the majority of the capsule from the subcutaneous tissue was excised as well as some of it from the chest wall", to clarify the depth of tissue excised from the chest wall. ( ) subcutaneous depth (x ) including muscle depth ( ) other - please specify 4. Please clarify below regarding the Chest Wall Abscess documented. ( ) abscess was likely a postoperative surgical site wound infection - please specify below: ( ) Superficial incisional ( ) Deep incisional ( ) organ and space (x ) other specified - no evidence of abscess- cult neg so far ( x ) abscess was Not a postoperative surgical site wound infection but was a postoperative infection complication (x ) abscess was Not a postoperative complication (x ) abscess was ruled-out Physician's Response(s): Thank you Charlene Jain Principal Diagnosis: "that condition established after study, to be chiefly responsible for occasioning the admission of the patient to the hospital for care." Co-Existing Principal Diagnosis: "when two or more diagnoses equally meet the criteria for principal diagnosis as determined by the circumstances of admission, diagnostic work up, and/or therapy provided, and the Alphabetic Index, Tabular List, or another coding guideline does not provide sequencing direction, any one of the diagnoses may be sequenced first." "When the physician has documented what appears to be a current diagnosis in the body of the record, but has not included the diagnosis in the final diagnostic statement, the physician should be asked whether the diagnosis should be added." ([facility] 2 QTR90. p3-4) GAIL
--- NOTE | 2018-06-17 06:36 | Discharge Summary ---
PRINCIPAL DIAGNOSIS: Calcified hematoma right chest wall. PROCEDURES: The patient underwent a right chest wall wound exploration with debridement of calcified hematoma and then wound VAC placement postoperatively. HISTORY OF PRESENT ILLNESS: The patient is a 78-year-old female who has had prior right mastectomy and radiation treatment. She has had skin changes and enlargement of an area concerning to her causing pain and she is worried about cancer. HOSPITAL COURSE: The patient was brought into the hospital on 06/13/2018. She has undergone [facility] to [facility]. We took the surgery and explore the right chest wall excising a large area of elliptical tissue, carrying dissection down encountering a calcified structure which appeared to be hematoma. Hematoma was cultured. The capsule was then debrided away from the subcutaneous tissue down to the chest wall excising the tissue away from the muscle and bone. There was a relatively large wound at the end of the procedure, which was packed and the postoperative plan was for wound VAC. The patient did well postoperatively. The wound clinic nurses and physician did see the patient and she had a wound VAC placed and did well, progressing in both diet and activity and felt stable for discharge on 06/15/2018 to be followed in the [facility].
--- NOTE | 2018-06-17 06:42 | Coding Query ---
CODING QUERY To promote full compliance with coding requirements relating to patient care, provider participation is requested in all cases of ux developer designer uncertainty. Please assist us with the question(s) below: Coding Question(s): Please clarify below, regarding the Hematoma of the Chest Wall, to determine if it was nontraumatic or due to trauma. ( ) Chest Wall Hematoma - Nontraumatic ( x ) Chest Wall Hematoma - Traumatic Physician's Response(s): Thank you Charlene Jain Principal Diagnosis: "that condition established after study, to be chiefly responsible for occasioning the admission of the patient to the hospital for care." Co-Existing Principal Diagnosis: "when two or more diagnoses equally meet the criteria for principal diagnosis as determined by the circumstances of admission, diagnostic work up, and/or therapy provided, and the Alphabetic Index, Tabular List, or another coding guideline does not provide sequencing direction, any one of the diagnoses may be sequenced first." "When the physician has documented what appears to be a current diagnosis in the body of the record, but has not included the diagnosis in the final diagnostic statement, the physician should be asked whether the diagnosis should be added." ([facility] 2 QTR90. p3-4) GAIL
== END 2018-06-15 14:16 | disposition home health service (06) | DRG 501 ==
LOC: MAMMO 08:41 → 3N 13:17

== ENCOUNTER 2019-04-27 17:13 | Inpatient (IN) ==
[2019-04-27] MEDS ORDERED: ALBUT/IPRATROP 3MG/0.5MG NEB 3 ML VIAL NEB STA (17:19)
[2019-04-27] MEDS ORDERED: methylPREDNISolone 125 MG/2 ML VIAL IV STA (17:19)
[2019-04-27 17:45] LABS: Base Excess VBG 0.2 mEq/L; HCO3 VBG 26 mmol/L; PCO2 VBG 46 mmHg (38-50); PO2 VBG 31 mmHg; pH VBG 7.37 (7.36-7.41)
[2019-04-27 17:50] LABS: Basophils # (auto) 0.02 K/uL (0-0.2); Basophils % (auto) 0.2 %; Eosinophils # (auto) 0.18 K/uL (0-0.5); Eosinophils % (auto) 1.7 %; Hematocrit (blood only) 43.7 % (37-47); Hemoglobin 13.3 g/dL (12.0-16.0); Immature Granulocytes # (auto) 0.02 K/uL (0.00-0.02); Immature Granulocytes % (auto) 0.2 %; Lymphocytes # (auto) 1.93 K/uL (1.2-3.4); Lymphocytes % (auto) 17.8 %; Mean Corpuscular Hemoglobin 25.9 pg (25-34); Mean Corpuscular Hgb Conc 30.4 g/dL (32-36); Mean Corpuscular Volume 85.2 fL (80-100); Mean Platelet Volume 9.9 fL (7.4-10.4); Monocytes # (auto) 0.98 K/uL (0.11-0.59); Neutrophils # (auto) 7.73 K/uL (1.4-6.5); Neutrophils % (auto) 71.1 %; Oxygen Saturation VBG < 60.0 %; Platelet Count 283 K/uL (130-400); RDW Coefficient of Variation 14.9 % (11.5-14.5); RDW Standard Deviation 46.7 fL (36.4-46.3); Red Blood Count 5.13 M/uL (4.2-5.4); White Blood Count 10.86 K/uL (4.8-10.8)
[2019-04-27 18:03] LABS: Partial Thromboplastin Time 27.9 Seconds (21.0-31.0); Prothrombin Time 10.6 Seconds (9.0-12.0)
[2019-04-27 18:09] LABS: Alanine Aminotransferase 17 U/L (12-78); Aspartate Aminotransferase 18 U/L (15-37); BUN Creatinine Ratio 16.7 (10-20); Blood Urea Nitrogen 15 mg/dl (7-18); Calcium 8.4 mg/dl (8.5-10.1); Carbon Dioxide 27 mmol/L (21-32); Chloride 110 mmol/L (98-107); Est GFR (African American) 73.4; Est GFR (Non-African American) 63.4; Glucose 186 mg/dl (70-99); Magnesium 2.2 mg/dl (1.8-2.4); Potassium 3.9 mmol/L (3.5-5.1); Sodium 140 mmol/L (136-145)
--- NOTE | 2019-04-27 18:13 | XRay Report ---
XR chest 1V portable CLINICAL HISTORY: SEPSIS dyspnea COMPARISON STUDY: 12/27/2018 FINDINGS: Moderate increase in cardiac size compared to the prior study. Trace pleural fluid both mariano g bases. Prominent pulmonary vasculature IMPRESSION: Congestive heart failure and/or pulmonary edema. ACT 112: Negative or not required by law. The above report was generated using voice recognition software. It may contain grammatical, syntax or spelling errors. Electronically signed by: Juan Manuel Zhong M.D. 04/27/2019 6:12 PM
[2019-04-27 18:14] LABS: Albumin Globulin Ratio 0.6 (0.9-2); Alkaline Phosphatase 158 U/L (45-117); Bilirubin,Total 0.3 mg/dl (0.2-1); Globulin 4.9 gm/dl (2.5-4.0); NT Pro B Type Natriuretic Pept 2024 pg/ml (0-1800); Total Protein 7.9 gm/dl (6.4-8.2); Troponin I < 0.015 ng/ml (0-0.045)
[2019-04-27] MEDS ORDERED: FUROSEMIDE 40 MG/4 ML VIAL IV STA (18:16)
--- NOTE | 2019-04-27 19:20 | Emergency Department Note ---
Entered by Karlee Somers acting as a scribe for Salvatore Orosco MD History of Present Illness General Chief complaint: Shortness of Breath/Dyspnea Time Seen by Provider: 04/27/19 17:14 Source: patient History of Present Illness Provider complaint: Shortness of Breath/Dyspnea Onset (ago): hour(s) 1 Location: chest Relieved By: + none Exacerbated By: + none Associated symptoms: + cough The patient is a 78 year old female who presents to the Emergency Room with complaints of shortness of breath/dyspnea that worsened about an hour ago but has been moderate over the last 3 days. According to the nursing staff, the patient received Albuterol and a Duoneb prior to arrival. The patient states that her symptoms are not exacerbated nor relieved by anything specific. The patient reports experiencing cold symptoms starting 1 week ago. The patient has a history of a non-healing surgical wound in the setting of radiation damage. The patient underwent debridement with delayed primary closure of the open wound of the right breast by Dr. Oliveros on February 27 with previous hematoma evacuation 05/2018 in the setting of history of mastectomy and radiation therapy. The patient saw the wound clinic on April 24 and had some non-excisional debridement. Home Medications Home Medications Medication Instructions Recorded Confirmed Type atorvastatin 40 mg tablet 40 mg PO HS #90 tab 09/27/18 04/27/19 Rx ipratropium bromide 0.03 % nasal 2 sprays INTNAS TID PRN #30 ml 10/28/18 04/27/19 Rx spray insulin glargine 100 unit/mL 25 units SUBCUT BID #20 ml 12/19/18 04/27/19 Rx subcutaneous solution meloxicam 7.5 mg tablet 7.5 mg PO BID PRN #60 tab 01/02/19 04/27/19 Rx metoprolol tartrate 100 mg tablet 100 mg PO BID #180 tab 01/06/19 04/27/19 Rx insulin syringe-needle U-100 0.3 #100 ea 01/11/19 04/27/19 Rx mL 31 gauge x 5/16" hydrocodone 5 mg-acetaminophen 325 1 tab PO Q4H #18 tab 02/07/19 04/27/19 Rx mg tablet gabapentin 600 mg tablet 1,200 mg PO BID #120 tab 02/09/19 04/27/19 Rx citalopram [Celexa] 40 mg PO QPM 02/14/19 04/27/19 History furosemide 40 mg PO QAM 02/14/19 04/27/19 History pantoprazole [Protonix] 40 mg PO QAM 02/14/19 04/27/19 History potassium chloride [Klor-Con 10] 10 meq PO QAM 02/14/19 04/27/19 History nystatin 100,000 unit/gram topical 1 applic TOPICAL TID PRN #60 gm 02/28/19 04/27/19 Rx powder Lift Chair #1 ea 03/09/19 04/27/19 Rx albuterol sulfate 90 mcg/actuation 2 puff INHALATION QID PRN #8 gm 03/16/19 04/27/19 Rx aerosol inhaler albuterol sulfate 2.5 mg INH .COMPLEX #180 ml 03/23/19 04/27/19 Rx tramadol 50 mg tablet 50 - 100 mg PO Q6 PRN #30 tab 04/03/19 04/27/19 Rx colestipol 1 gram tablet 2 gm PO TID #180 tab 04/17/19 04/27/19 Rx doxycycline hyclate 100 mg capsule 100 mg PO BID #20 cap 04/27/19 04/27/19 Rx Allergies Allergy/AdvReac Type Severity Reaction Status Date / Time bee venom protein (honey bee) Allergy Severe SWELLING Verified 04/27/19 18:50 SOB iodine Allergy Severe RASH-PT Verified 04/27/19 18:50 DENIES ANY ISSUE codeine Allergy Intermediate SWELLING Verified 04/27/19 18:50 metformin Allergy Intermediate Diarrhea Verified 04/27/19 18:50 Penicillins Allergy Intermediate RASH/HIVES Verified 04/27/19 18:50 procaine Allergy Mild NOVOCAINE-R Verified 04/27/19 18:50 AKILAH Cephalosporins Allergy Unknown UNKNOWN Verified 04/27/19 18:50 clarithromycin Allergy Unknown Verified 04/27/19 18:50 Past Med/Surg History Medical History Anxiety Asthma RARELY NEEDS PRN INH Atrial fibrillation Paroxysmal, not on anticoagulation. Per cardio 12/25/15, "since she has not had a paroxysmal for many years, no therapy will be initiated today. Given her elevated CHADSVASC score, though, would recommend anticoagulation therapy if she were to develop any recurrent episodes of A. fib in the future." Chronic back pain Chronic chest pain Has been evaluated by cardio, ruled to be non-cardiac in origin. Delayed effect of radiation Depression Diabetes mellitus, type 2 IDDM. HgA1C 6.6% 05/03/18 Diverticular disease GERD (gastroesophageal reflux disease) Hiatal hernia History of right breast cancer S/P RT MASTECTOMY, + CHEMO/RADIATION Hyperlipidemia Hypertension Migraine Morbid obesity Myocardial Infarction > 20 YEARS AGO Nonobstructive atherosclerosis of coronary artery Per cath 2008 Osteoarthritis Surgical History Fusion of spine History of appendectomy History of back surgery HARDWARE PRESENT History of bilateral tubal ligation History of breast biopsy History of cardiac cath 2008 [facility] for chest pain. Non-obstructive CAD. "Non-cardiac chest pain." History of carpal tunnel release BL History of cataract surgery History of cholecystectomy History of dilatation and curettage History of hysterectomy History of partial gastrectomy History of right mastectomy NO BP/IV RUE History of tonsillectomy History of tooth extraction History of total knee replacement BL History of total shoulder replacement RT Family History Sister Family history of diabetes mellitus Daughter Family history of reaction to anesthesia SLOW TO WAKE UP Social History Preferred Language: Croatian Communication Ability: Effective Visual Impairment: Partially Limited Hearing Ability: Normal Community Relations Advisor Required: No Beliefs That Will Affect Care: None marital status: Current Living Situation: Spouse current occupational status: retired Feels Safe at Home: Yes Smoking Status: Never smoker Second Hand Exposure: No ; Hx Alcohol Use: No Hx Substance Use: No Review of Systems See HPI for pertinent positives & negatives. and A total of 10 systems reviewed and were otherwise negative Physical Exam Vital Signs Vital Signs - 24 hr 04/27/19 17:20 04/27/19 17:21 04/27/19 17:24 Temperature Temperature Source Pulse Rate 103 H 113 H 104 H Pulse Rate from SpO2 Sensor Pulse Rhythm Pulse Strength Respiratory Rate 30 H Respiratory Effort / Characteristics Spontaneous Labored Respiratory Depth Respiratory Pattern Blood Pressure 171/91 H Blood Pressure Mean 116 Pulse Oximetry 95 Oxygen Delivery Method Fraction of Inspired Oxygen 40 Sepsis Recent Fever Within 48 Hours Sepsis Action Taken by Nursing 04/27/19 17:25 04/27/19 17:30 04/27/19 17:36 Temperature 37.3 C Temperature Source Oral Pulse Rate 113 H 94 H 103 H Pulse Rate from SpO2 Sensor 90 Pulse Rhythm Regular Pulse Strength Normal Respiratory Rate 30 H 24 Respiratory Effort / Characteristics Spontaneous Labored Non-Labored Spontaneous Respiratory Depth Normal Respiratory Pattern Regular Blood Pressure 171/91 H Blood Pressure Mean 117 Pulse Oximetry 95 100 100 Oxygen Delivery Method CPAP CPAP Fraction of Inspired Oxygen 40 Sepsis Recent Fever Within 48 Hours No Sepsis Action Taken by Nursing No Action Required 04/27/19 18:00 04/27/19 18:30 04/27/19 18:31 Temperature Temperature Source Pulse Rate 94 H 92 H 109 H Pulse Rate from SpO2 Sensor 92 H 86 108 H Pulse Rhythm Pulse Strength Respiratory Rate Respiratory Effort / Characteristics Respiratory Depth Respiratory Pattern Blood Pressure 165/98 H 178/56 H Blood Pressure Mean 114 113 Pulse Oximetry 100 100 100 Oxygen Delivery Method CPAP CPAP CPAP Fraction of Inspired Oxygen Sepsis Recent Fever Within 48 Hours Sepsis Action Taken by Nursing 04/27/19 19:24 04/27/19 19:30 Temperature Temperature Source Pulse Rate 95 H 105 H Pulse Rate from SpO2 Sensor 96 H 100 H Pulse Rhythm Pulse Strength Respiratory Rate 25 H 24 Respiratory Effort / Characteristics Respiratory Depth Respiratory Pattern Blood Pressure 157/108 H 175/112 H Blood Pressure Mean 123 126 Pulse Oximetry 95 98 Oxygen Delivery Method BiPAP Fraction of Inspired Oxygen Sepsis Recent Fever Within 48 Hours Sepsis Action Taken by Nursing GENERAL: Awake, alert, ill-appearing, in no distress, obese HENT: Normocephalic, atraumatic. Oropharynx unremarkable. Mucous membranes dry. EYES: Normal conjunctiva. Sclera non-icteric. NECK: Supple. No nuchal rigidity. FROM. No JVD. RESPIRATORY: Moderate respiratory distress. Scant intermittent wheezes with diminished breath sounds at bases. CARDIAC: Regular rate, normal rhythm. Extremities warm and well perfused. Pulses equal. CHEST: Right chest wall dressing is clean, dry, and intact. Scant purulence at base of wound healing by secondary intention and otherwise similar appearing to recent wound clinic photo. ABDOMEN: Soft, non-distended. No tenderness to palpation. No rebound or guarding. No masses. RECTAL: Deferred. MUSCULOSKELETAL: Chest examination reveals no tenderness. The back is symmetrical on inspection without obvious abnormality. There is no CVA tenderness to palpation. No joint edema. LOWER EXTREMITIES: Calves are equal size bilaterally and non-tender. Scant lower extremity edema. No discoloration. NEURO: Normal sensorium. No sensory or motor deficits noted. SKIN: No rash or jaundice noted. Course Course 1713: Past medical records reviewed. The patient was evaluated in room B01. A complete history and physical exam was performed. 1818: I spoke with Dr. Upton- Hospitalist about the patient's case and she will accept the patient for further evaluation. Administered Medications Acetaminophen (Tylenol) 650 mg PO Q4H PRN PRN Reason: Pain or Fever Stop: 05/27/19 21:28 Last Admin: 04/27/19 23:09 Dose: 650 mg Documented by: [id number] Atorvastatin Calcium (Lipitor) 40 mg PO HS ISAIAS Stop: 05/27/19 21:28 Last Admin: 04/27/19 23:08 Dose: 40 mg Documented by: [id number] Citalopram Hydrobromide (Celexa) 40 mg PO QPM [facility] Stop: 05/27/19 21:28 Last Admin: 04/27/19 23:08 Dose: 40 mg Documented by: [id number] Colestipol HCl (Colestid) 2 gm PO TID@1000,1600,2200 [facility] Stop: 05/27/19 21:59 Last Admin: 04/28/19 00:25 Dose: 2 gm Documented by: [id number] Gabapentin (Neurontin) 1,200 mg PO BID [facility] Stop: 05/27/19 21:28 Last Admin: 04/27/19 23:07 Dose: 1,200 mg Documented by: [id number] Levofloxacin/Dextrose (Levaquin/D5w) 500 mg in 100 mls @ 100 mls/hr IV Q24H [facility] Stop: 05/04/19 22:59 Last Admin: 04/28/19 00:26 Dose: 100 mls/hr Documented by: [id number] Insulin Aspart (Novolog Flexpen) 0 units SC TODAY@0400,2330 [facility]; Protocol Stop: 04/28/19 04:01 Last Admin: 04/28/19 00:32 Dose: 6 units Documented by: [id number] Cosigned by: [id number] Insulin Glargine (Lantus Solostar Pen) 20 units SQ BID [facility] Stop: 05/27/19 23:29 Last Admin: 04/28/19 00:27 Dose: 20 units Documented by: [id number] Cosigned by: [id number] Ipratropium [place] (Atrovent 0.02% 0.5mg/2.5ml) 0.5 mg INH Q6R ISAIAS Stop: 05/28/19 00:59 Last Admin: 04/28/19 00:53 Dose: 0.5 mg Documented by: [id number] Levalbuterol HCl (Xopenex 0.63 Mg/3 Ml Neb) 0.63 mg NEB Q6R ISAIAS Stop: 05/28/19 00:59 Last Admin: 04/28/19 00:55 Dose: 0.63 mg Documented by: [id number] Metoprolol Tartrate (Lopressor) 100 mg PO BID ISAIAS Stop: 05/27/19 21:28 Last Admin: 04/27/19 23:09 Dose: 100 mg Documented by: [id number] Discontinued Medications Albuterol (Duoneb) 3 ml NEB NOW STA Stop: 04/27/19 17:20 Last Admin: 04/27/19 17:30 Dose: 3 ml Documented by: [id number] Furosemide (Lasix) 40 mg IV NOW STA Stop: 04/27/19 18:17 Last Admin: 04/27/19 18:48 Dose: 40 mg Documented by: [id number] Methylprednisolone (Solumedrol) 125 mg IV NOW STA Stop: 04/27/19 17:20 Last Admin: 04/27/19 17:35 Dose: 125 mg Documented by: [id number] Ondansetron HCl (Zofran) 4 mg IV NOW STA Stop: 04/27/19 20:24 Last Admin: 04/27/19 20:37 Dose: 4 mg Documented by: [id number] Critical Care Time Critical Care Time: Yes Total Critical Care Time: 60 I have personally spent approximately 60 minutes of critical care time in the direct management of this patient. This includes bedside care, interpretation of diagnostic studies, and testing, discussion with consultants, patient, and family members, and other required patient management activities. This a pproximate 60 minutes is in excess of all separately billable procedures. Medical Decision Making Differential Diagnosis Differential diagnosis: Etiologies such as infections, reactive airway disease, COPD, pneumonia, pleural effusion, pulmonary edema, ARDS, pneumothorax, CHF, cardiac ischemia, cardiac tamponade, dysrhythmia, anemia, pulmonary embolism, musculoskeletal, gastrointestinal process, as well as others were entertained. Medical Records Attestation: I reviewed the patient's medical records. Home Medications Current Medication List: was personally reviewed by me Laboratory Data Attestation: I reviewed the patient's lab results. Result diagrams: 04/27/19 17:32 04/27/19 17:32 Lab Results 04/27/19 04/27/19 04/27/19 Range/Units 17:32 17:32 17:32 WBC 10.86 H (4.8-10.8) K/uL RBC 5.13 (4.2-5.4) M/uL Hgb 13.3 (12.0-16.0) g/dL Hct 43.7 (37-47) % MCV 85.2 (80-100) fL MCH 25.9 (25-34) pg MCHC 30.4 L (32-36) g/dL RDW Std Deviation 46.7 H (36.4-46.3) fL RDW Coeff of Erin 14.9 H (11.5-14.5) % Plt Count 283 (130-400) K/uL MPV 9.9 (7.4-10.4) fL Immature Gran % (Auto) 0.2 % Neut % (Auto) 71.1 % Lymph % (Auto) 17.8 % [place] % (Auto) 9.0 % Eos % (Auto) 1.7 % Baso % (Auto) 0.2 % Immature Gran # (Auto) 0.02 (0.00-0.02) K/uL Neut # (Auto) 7.73 H (1.4-6.5) K/uL Lymph # (Auto) 1.93 (1.2-3.4) K/uL [place] # (Auto) 0.98 H (0.11-0.59) K/uL Eos # (Auto) 0.18 (0-0.5) K/uL Baso # (Auto) 0.02 (0-0.2) K/uL PT 10.6 (9.0-12.0) Seconds INR 1.0 (0.9-1.1) APTT 27.9 (21.0-31.0) Seconds PTT Ratio 1.0 VBG pH (7.36-7.41) VBG pCO2 (38-50) mmHg VBG pO2 mmHg VBG HCO3 mmol/L VBG O2 Saturation % VBG Base Excess mEq/L Barometric Pressure mm/Hg Sodium 140 (136-145) mmol/L Potassium 3.9 (3.5-5.1) mmol/L Chloride 110 H (98-107) mmol/L Carbon Dioxide 27 (21-32) mmol/L Anion Gap 3.0 (3-11) BUN 15 (7-18) mg/dl Creatinine 0.87 (0.6-1.2) mg/dl Est Cr Clr Drug Dosing Not Reportable Est GFR ( Amer) 73.4 Est GFR (Non-Af Amer) 63.4 BUN/Creatinine Ratio 16.7 (10-20) Glucose 186 H (70-99) mg/dl POC Glucose (70-99) mg/dl Lactate (0.4-2.0) mmol/L Calcium 8.4 L (8.5-10.1) mg/dl Phosphorus 2.0 L (2.5-4.9) mg/dl Magnesium 2.2 (1.8-2.4) mg/dl Total Bilirubin 0.3 (0.2-1) mg/dl AST 18 (15-37) U/L ALT 17 (12-78) U/L Alkaline Phosphatase 158 H (45-117) U/L Troponin I < 0.015 (0-0.045) ng/ml NT-Pro-B Natriuret Pep 2024 H (0-1800) pg/ml Total Protein 7.9 (6.4-8.2) gm/dl Albumin 3.0 L (3.4-5.0) gm/dl Globulin 4.9 H (2.5-4.0) gm/dl Albumin/Globulin Ratio 0.6 L (0.9-2) Procalcitonin (0-0.5) ng/ml Urine Color Urine Appearance (Clear) Urine pH (4.5-7.5) Ur Specific [place] (1.000-1.030) Urine Protein (Negative) Urine Glucose (UA) (Negative) Urine Ketones (Negative) Urine Blood (Negative) Urine Nitrite (Negative) Urine Bilirubin (Negative) Urine Urobilinogen (Negative) Ur Leukocyte Esterase (Negative) Urine WBC (Auto) (0-5) /hpf Urine RBC (Auto) (0-4) /hpf U Hyaline Cast (Auto) (0-5) /lpf U Epithel Cells (Auto) (0-5) /lpf Urine Bacteria (Auto) (Negative) 04/27/19 04/27/19 04/27/19 Range/Units 17:32 17:32 17:39 WBC (4.8-10.8) K/uL RBC (4.2-5.4) M/uL Hgb (12.0-16.0) g/dL Hct (37-47) % MCV (80-100) fL MCH (25-34) pg MCHC (32-36) g/dL RDW Std Deviation (36.4-46.3) fL RDW Coeff of Erin (11.5-14.5) % Plt Count (130-400) K/uL MPV (7.4-10.4) fL Immature Gran % (Auto) % Neut % (Auto) % Lymph % (Auto) % [place] % (Auto) % Eos % (Auto) % Baso % (Auto) % Immature Gran # (Auto) (0.00-0.02) K/uL Neut # (Auto) (1.4-6.5) K/uL Lymph # (Auto) (1.2-3.4) K/uL [place] # (Auto) (0.11-0.59) K/uL Eos # (Auto) (0-0.5) K/uL Baso # (Auto) (0-0.2) K/uL PT (9.0-12.0) Seconds INR (0.9-1.1) APTT (21.0-31.0) Seconds PTT Ratio VBG pH 7.37 (7.36-7.41) VBG pCO2 46 (38-50) mmHg VBG pO2 31 mmHg VBG HCO3 26 mmol/L VBG O2 Saturation < 60.0 % VBG Base Excess 0.2 mEq/L Barometric Pressure 727.0 mm/Hg Sodium (136-145) mmol/L Potassium (3.5-5.1) mmol/L Chloride (98-107) mmol/L Carbon Dioxide (21-32) mmol/L Anion Gap (3-11) BUN (7-18) mg/dl Creatinine (0.6-1.2) mg/dl Est Cr Clr Drug Dosing Est GFR ( Amer) Est GFR (Non-Af Amer) BUN/Creatinine Ratio (10-20) Glucose (70-99) mg/dl POC Glucose (70-99) mg/dl Lactate 1.6 (0.4-2.0) mmol/L Calcium (8.5-10.1) mg/dl Phosphorus (2.5-4.9) mg/dl Magnesium (1.8-2.4) mg/dl Total Bilirubin (0.2-1) mg/dl AST (15-37) U/L ALT (12-78) U/L Alkaline Phosphatase (45-117) U/L Troponin I (0-0.045) ng/ml NT-Pro-B Natriuret Pep (0-1800) pg/ml Total Protein (6.4-8.2) gm/dl Albumin (3.4-5.0) gm/dl Globulin (2.5-4.0) gm/dl Albumin/Globulin Ratio (0.9-2) Procalcitonin < 0.05 (0-0.5) ng/ml Urine Color Urine Appearance (Clear) Urine pH (4.5-7.5) Ur Specific [place] (1.000-1.030) Urine Protein (Negative) Urine Glucose (UA) (Negative) Urine Ketones (Negative) Urine Blood (Negative) Urine Nitrite (Negative) Urine Bilirubin (Negative) Urine Urobilinogen (Negative) Ur Leukocyte Esterase (Negative) Urine WBC (Auto) (0-5) /hpf Urine RBC (Auto) (0-4) /hpf U Hyaline Cast (Auto) (0-5) /lpf U Epithel Cells (Auto) (0-5) /lpf Urine Bacteria (Auto) (Negative) 04/27/19 04/27/19 Range/Units 18:02 19:35 WBC (4.8-10.8) K/uL RBC (4.2-5.4) M/uL Hgb (12.0-16.0) g/dL Hct (37-47) % MCV (80-100) fL MCH (25-34) pg MCHC (32-36) g/dL RDW Std Deviation (36.4-46.3) fL RDW Coeff of Erin (11.5-14.5) % Plt Count (130-400) K/uL MPV (7.4-10.4) fL Immature Gran % (Auto) % Neut % (Auto) % Lymph % (Auto) % [place] % (Auto) % Eos % (Auto) % Baso % (Auto) % Immature Gran # (Auto) (0.00-0.02) K/uL Neut # (Auto) (1.4-6.5) K/uL Lymph # (Auto) (1.2-3.4) K/uL [place] # (Auto) (0.11-0.59) K/uL Eos # (Auto) (0-0.5) K/uL Baso # (Auto) (0-0.2) K/uL PT (9.0-12.0) Seconds INR (0.9-1.1) APTT (21.0-31.0) Seconds PTT Ratio VBG pH (7.36-7.41) VBG pCO2 (38-50) mmHg VBG pO2 mmHg VBG HCO3 mmol/L VBG O2 Saturation % VBG Base Excess mEq/L Barometric Pressure mm/Hg Sodium (136-145) mmol/L Potassium (3.5-5.1) mmol/L Chloride (98-107) mmol/L Carbon Dioxide (21-32) mmol/L Anion Gap (3-11) BUN (7-18) mg/dl Creatinine (0.6-1.2) mg/dl Est Cr Clr Drug Dosing Est GFR ( Amer) Est GFR (Non-Af Amer) BUN/Creatinine Ratio (10-20) Glucose (70-99) mg/dl POC Glucose 175 H (70-99) mg/dl Lactate (0.4-2.0) mmol/L Calcium (8.5-10.1) mg/dl Phosphorus (2.5-4.9) mg/dl Magnesium (1.8-2.4) mg/dl Total Bilirubin (0.2-1) mg/dl AST (15-37) U/L ALT (12-78) U/L Alkaline Phosphatase (45-117) U/L Troponin I (0-0.045) ng/ml NT-Pro-B Natriuret Pep (0-1800) pg/ml Total Protein (6.4-8.2) gm/dl Albumin (3.4-5.0) gm/dl Globulin (2.5-4.0) gm/dl Albumin/Globulin Ratio (0.9-2) Procalcitonin (0-0.5) ng/ml Urine Color Yellow Urine Appearance Clear (Clear) Urine pH 7.0 (4.5-7.5) Ur Specific [place] 1.008 (1.000-1.030) Urine Protein Negative (Negative) Urine Glucose (UA) Negative (Negative) Urine Ketones Negative (Negative) Urine Blood Trace H (Negative) Urine Nitrite Negative (Negative) Urine Bilirubin Negative (Negative) Urine Urobilinogen Negative (Negative) Ur Leukocyte Esterase Negative (Negative) Urine WBC (Auto) 1-5 (0-5) /hpf Urine RBC (Auto) 0-4 (0-4) /hpf U Hyaline Cast (Auto) 0 (0-5) /lpf U Epithel Cells (Auto) 20-30 H (0-5) /lpf Urine Bacteria (Auto) Negative (Negative) Imaging Data Radiologist's Impression: Radiology results as stated below per my review and the radiologist's interpretation: XR chest 1V portable CLINICAL HISTORY: SEPSIS dyspnea COMPARISON STUDY: 12/27/2018 FINDINGS: Moderate increase in cardiac size compared to the prior study. Trace pleural fluid both lung bases. Prominent pulmonary vasculature IMPRESSION: Congestive heart failure and/or pulmonary edema. ACT 112: Negative or not required by law. The above report was generated using voice recognition software. It may contain grammatical, syntax or spelling errors. Electronically signed by: Juan Manuel Zhong M.D. 04/27/2019 6:12 PM ECG Data Attestation: I personally reviewed and interpreted this ECG as follows: Indication: + SOB/dyspnea Rate (beats per minute): 106 Rhythm: + sinus tachycardia ECG Intervals/blocks: + Normal QRS (80) and + Normal QT-c (459) ECG ST segments: + Nonspecific ST abnormalities (and P wave laterally ); no ST depression and no ST elevation ECG Findings: + PVCs Blood Pressure Blood Pressure Findings: Elevated blood pressure Blood Pressure Disposition: further management by hospitalist KRISTEN Rinaldi The patient is a pleasant 78-year-old woman with a past medical history of diastolic heart failure, asthma/COPD, hypertension, hyperlipidemia, chronic right chest wall wound with recent debridement in January and subsequent management with wound VAC on Doxycycline who presents emergency department with acute onset shortness of breath that began abruptly today in the setting of wor sening shortness of breath over the past week all of which occurs in the setting of her having health issues where he presented to the emergency department today as well per HPI. On arrival the patient is in moderate respiratory distress on BiPAP by EMS after she was found in respiratory failure with elevated systolic blood pressure in the 200s at home additionally treated with DuoNeb. On exam the patient has scant intermittent wheeze with diminished breath sounds. Right chest wall dressing is clean dry and intact with scant purulence at baseline for wound healing by secondary intention stable appearing from 04/24 wound clinic visit. Patient reports they are giving her a week break from her wound vac due to skin irritation. EKG without overt acute ischemia. Chest x-ray demonstrates venous congestion with pulmonary edema. WBC 10.8, nonspecific. H/H and platelets within normal limits. Chemistry without acidosis and VBG unremarkable. Phosphorus 2.0 and electrolytes LFTs otherwise unremarkable. Troponin negative/undetectable. BNP 2K which is increased from 400s July 2018. Patient was feeling improved after continuation of BiPAP with the addition of steroids and DuoNeb in the emergency department. Given the patient's acute onset respiratory failure in the setting of elevated blood pressures, presentation today is suggestive of a component of hypertensive emergency as well as underlying fluid overload and component of bronchospasm. Case was discussed with Dr. Upton, [facility] hospitalist, who evaluate the patient for admission. Impression & Plan Acute respiratory failure with hypoxia, Hypertensive emergency, Elevated brain natriuretic peptide (BNP) level, Hypophosphatemia Discharge Plan Visit Data *Final* Discharge Date/Time: 04/27/19 20:52 Chief Complaint: Shortness of Breath/Dyspnea ED Provider: Salvatore Orosco Discharge Problem: Acute respiratory failure with hypoxia, Hypertensive emergency, Elevated brain natriuretic peptide (BNP) level, Hypophosphatemia Patient Disposition: Admitted As Inpatient Discharge Instructions Interventions: ED Discharge Assessment Last Done: 04/27/19 20:52 The scribe's documentation has been prepared under my direction and personally reviewed by me in its entirety. I confirm that the note above accurately reflects all work, treatment, procedures, and medical decision making performed by me.
--- NOTE | 2019-04-27 20:01 | History & Physical Report ---
Date of Service April 27, 2019 Assessment & Plan (1) Acute respiratory failure with hypoxia: Admit to inpatient PCU on telemetry. Vital signs every 4 hours. Started Levaquin 500 mg geeta. Xopenex/ipratropium nebs every 6 hours PRN and scheduled as per RTDarlene Pimentel as needed for cough. DVT prophylaxis Heparin units subacute every 12 Full code Present on Admission?: Yes (2) Hypertensive emergency: Continue home meds: Metoprolol 100 mg p.o. twice daily, Furosemide 40 mg IV daily, Potassium chloride 10 mEq p.o. every morning. Monitor electrolytes and replenish, Monitor blood pressure every 4 hours. Present on Admission?: Yes (3) Acute exacerbation of CHF (congestive heart failure): Strict in and out, Daily weight, Restrict free water intake to 1200 mils per day, Furosemide 40 mg IV daily, Adjust to net output of 1.5 L/day. Present on Admission?: Yes (4) Diabetes mellitus type 2, insulin dependent: Glycemic control per pharmacy, Accu-Cheks before meals and at bedtime, Continue home dose insulin or less if p.o. intake is decreased due to shortness of breath. A1c pending. Present on Admission?: Yes (5) Hypercholesteremia: Lipid panel pending, Continue home dose of atorvastatin 40 mg p.o. nightly. Present on Admission?: Yes History of Present Illness Chief Complaint: Shortness of breath, hypertensive urgency, acute respiratory failure Primary Care Provider: Paul Leary MD The patient is a 78 years old female with past medical history of diabetes mellitus type 2, hypertension, hypercholesterolemia, and diastolic congestive h eart failure, morbid obesity, who was brought by her daughter to the emergency room with a complaint that patient is very short of breath and that she gained recently some weight of 10+ pounds. Patient stayed with her and most of the time he takes care of her. Per patient's daughter history patient is dependent on caregiver and they have caregiver for only several hours during the week. Patient is poor historian and it is difficult to review systems with her. Labs are reviewed which shows WBCs of 10.86, hemoglobin 13.3, hematocrit 43.7, platelets 283, PT 10.6, INR 1, APTT 27.9, VBG 7.37, PCO2 46, PO2 31, HCO3 26, VBG O2 saturation less than 60, base excess 0.2, sodium 140, potassium 3.9, chloride 110, carbon dioxide 27, anion gap 3, BUN 15, creatinine 0.87, GFR 63.4, glucose 186, lactate 1.6, calcium 8.4, phosphorus 2, magnesium 2.2, total bilirubin 0.3, AST 18, ALT 17, alkaline phosphatase of 58, troponin 0.015, BNP 2 0 24, total protein 7.9, albumin 3. Urine clear with trace blood. Chest x-ray shows congestive heart failure and or pulmonary edema. Decision was made to admit patient to PCU on telemetry for acute exacerbation of diastolic congestive heart failure and pulmonary edema with volume overload. Allergies Allergy/AdvReac Type Severity Reaction Status Date / Time bee venom protein (honey bee) Allergy Severe SWELLING Verified 04/27/19 18:50 SOB iodine Allergy Severe RASH-PT Verified 04/27/19 18:50 DENIES ANY ISSUE codeine Allergy Intermediate SWELLING Verified 04/27/19 18:50 metformin Allergy Intermediate Diarrhea Verified 04/27/19 18:50 Penicillins Allergy Intermediate RASH/HIVES Verified 04/27/19 18:50 procaine Allergy Mild NOVOCAINE-R Verified 04/27/19 18:50 AKILAH Cephalosporins Allergy Unknown UNKNOWN Verified 04/27/19 18:50 clarithromycin Allergy Unknown Verified 04/27/19 18:50 Home Medications Home Medications Medication Instructions Recorded Confirmed Type atorvastatin 40 mg tablet 40 mg PO HS #90 tab 09/27/18 04/27/19 Rx ipratropium bromide 0.03 % nasal 2 sprays INTNAS TID PRN #30 ml 10/28/18 04/27/19 Rx spray insulin glargine 100 unit/mL 25 units SUBCUT BID #20 ml 12/19/18 04/27/19 Rx subcutaneous solution meloxicam 7.5 mg tablet 7.5 mg PO BID PRN #60 tab 01/02/19 04/27/19 Rx metoprolol tartrate 100 mg tablet 100 mg PO BID #180 tab 01/06/19 04/27/19 Rx insulin syringe-needle U-100 0.3 #100 ea 01/11/19 04/27/19 Rx mL 31 gauge x 5/16" hydrocodone 5 mg-acetaminophen 325 1 tab PO Q4H #18 tab 02/07/19 04/27/19 Rx mg tablet gabapentin 600 mg tablet 1,200 mg PO BID #120 tab 02/09/19 04/27/19 Rx citalopram [Celexa] 40 mg PO QPM 02/14/19 04/27/19 History furosemide 40 mg PO QAM 02/14/19 04/27/19 History pantoprazole [Protonix] 40 mg PO QAM 02/14/19 04/27/19 History potassium chloride [Klor-Con 10] 10 meq PO QAM 02/14/19 04/27/19 History nystatin 100,000 unit/gram topical 1 applic TOPICAL TID PRN #60 gm 02/28/19 04/27/19 Rx powder Lift Chair #1 ea 03/09/19 04/27/19 Rx albuterol sulfate 90 mcg/actuation 2 puff INHALATION QID PRN #8 gm 03/16/19 04/27/19 Rx aerosol inhaler albuterol sulfate 2.5 mg INH .COMPLEX #180 ml 03/23/19 04/27/19 Rx tramadol 50 mg tablet 50 - 100 mg PO Q6 PRN #30 tab 04/03/19 04/27/19 Rx colestipol 1 gram tablet 2 gm PO TID #180 tab 04/17/19 04/27/19 Rx doxycycline hyclate 100 mg capsule 100 mg PO BID #20 cap 04/27/19 04/27/19 Rx Past Med/Surg History Medical History Anxiety Asthma RARELY NEEDS PRN INH Atrial fibrillation Paroxysmal, not on anticoagulation. Per cardio 12/25/15, "since she has not had a paroxysmal for many years, no therapy will be initiated today. Given her elevated CHADSVASC score, though, would recommend anticoagulation therapy if she were to develop any recurrent episodes of A. fib in the future." Chronic back pain Chronic chest pain Has been evaluated by cardio, ruled to be non-cardiac in origin. Delayed effect of radiation Depression Diabetes mellitus, type 2 IDDM. HgA1C 6.6% 05/03/18 Diverticular disease GERD (gastroesophageal reflux disease) Hiatal hernia History of right breast cancer S/P RT MASTECTOMY, + CHEMO/RADIATION Hyperlipidemia Hypertension Migraine Morbid obesity Myocardial Infarction > 20 YEARS AGO Nonobstructive atherosclerosis of coronary artery Per cath 2009 Osteoarthritis Surgical History Fusion of spine History of appendectomy History of back surgery [place] PRESENT History of bilateral tubal ligation History of breast biopsy History of cardiac cath 2008 [facility] for chest pain. Non-obstructive CAD. "Non-cardiac chest pain." History of carpal tunnel release BL History of cataract surgery History of cholecystectomy History of dilatation and curettage History of hysterectomy History of partial gastrectomy History of right mastectomy NO BP/IV RUE History of tonsillectomy History of tooth extraction History of total knee replacement BL History of total shoulder replacement RT Family History Sister Family history of diabetes mellitus Daughter Family history of reaction to anesthesia SLOW TO WAKE UP Social History Preferred Language: Japanese Communication Ability: Effective Visual Impairment: Partially Limited Hearing Ability: Normal Hearing Specialist Required: No Beliefs That Will Affect Care: None marital status: Current Living Situation: Spouse current occupational status: retired Feels Safe at Home: Yes Smoking Status: Never smoker Second Hand Exposure: No ; Hx Alcohol Use: No Hx Substance Use: No Review of Systems Review of Systems: All systems reviewed & are unremarkable except as noted in HPI & below Physical Exam Constitutional: WD/WN, vitals as above well developed, + ill appearing and + morbidly obese Eyes: PERRL, conjunctivae normal, anicteric sclerae ENMT: external ear and nose normal, oropharynx normal Neck: trachea midline, no thyromegaly Respiratory: Auscultation: + crackles and + wheezes Cardiovascular: Heart Sounds: normal S1 and normal S2 Palpation: + palpable S3 Vessels: + JVD and dorsalis pedis pulses present Extremities: + pedal edema Gastrointestinal (Abdomen): normal bowel sounds, soft, nontender, no hepatosplenomegaly Musculoskeletal: no cyanosis or clubbing, extremities motor strength 5/5 Skin: no rashes, warm and dry Neurologic: patellar DTR's 2+ bilat, sensation intact Psychiatric: A+Ox3, euthymic affect Lymphatic: no cervical or axillary lymphadenopathy Results & Data Vital Signs (Past 12 Hours) Vital Signs Temp Pulse Resp BP Pulse Ox 04/27/19 19:24 95 H 25 H 157/108 H 95 04/27/19 18:31 109 H 178/56 H 100 04/27/19 18:30 92 H 100 04/27/19 18:00 94 H 165/98 H 100 04/27/19 17:36 37.3 C 103 H 24 171/91 H 100 04/27/19 17:30 94 H 100 04/27/19 17:25 113 H 30 H 95 04/27/19 17:24 104 H 04/27/19 17:21 113 H 30 H 95 04/27/19 17:20 103 H 171/91 H Code Status & VTE Plan Code Status Full code VTE Prophylaxis Plan VTE Prophylaxis will be ordered: Yes PG Care Time/CCT Total # of Minutes Spent Total Time Spent with Patient: Total time spent is greater than 50% in coordination of care (as documented) at patient's floor/unit and/or counseling patient: Coding Level of Care Code 10123 Initial Inpt Care Lvl 3 Diagnoses Acute respiratory failure with hypoxia J96.01 Hypertensive emergency I16.1 Acute exacerbation of CHF (congestive heart failure) I50.9 Diabetes mellitus type 2, insulin dependent E11.9; Z79.4 Hypercholesteremia E78.00
[2019-04-27] MEDS ORDERED: ONDANSETRON INJ 2 MG/ML 2 ML VIAL IV STA (20:23)
[2019-04-27 20:29] LABS: Appearance Urine Clear (Clear); Bacteria Urine Automated Negative (Negative); Bilirubin Urine Negative (Negative); Blood Urine Trace (Negative); Cast Urine Automated 0 /lpf (0-5); Color Urine Yellow; Epithelial Cell Urine Auto 20-30 /lpf (0-5); Glucose Urine UA Negative (Negative); Ketones Urine Negative (Negative); Leukocyte Esterase Urine Negative (Negative); Nitrite Urine Negative (Negative); Protein Urine Negative (Negative); RBC Urine Automated 0-4 /hpf (0-4); Specific Gravity Urine 1.008 (1.000-1.030); Urobilinogen Urine Negative (Negative)
[2019-04-27] MEDS ORDERED: ALBUTEROL HFA 8 GM INHALER INH PRN (21:29)
[2019-04-27] MEDS ORDERED: GUAIFENESIN/DEXTROM SYRUP 200MG/20MG 10ML UDC PO PRN (21:29)
[2019-04-27] MEDS ORDERED: TRAMADOL HCL 50 MG TABLET PO PRN (21:29)
[2019-04-27] MEDS ORDERED: CARBOHYDRATES FOR HYPOGLYCEMIA PO PRN (21:29)
[2019-04-27] MEDS ORDERED: ALUMINUM/MAGNESIUM SUSP 30 ML UDC PO PRN (21:29)
[2019-04-27] MEDS ORDERED: GLUCAGON FOR INJ 1 MG VIAL SQ PRN (21:29)
[2019-04-27] MEDS ORDERED: MAGNESIUM HYDROXIDE SUSP 30 ML UDC PO PRN (21:29)
[2019-04-27] MEDS ORDERED: HYDROCODONE/ACETAMOPHEN 5/325MG TAB PO PRN (21:29)
[2019-04-27] MEDS ORDERED: MELOXICAM 7.5 MG TAB PO PRN (21:29)
[2019-04-27] MEDS ORDERED: GLUCOSE 40% GEL 15 GM TUBE PO PRN (21:29)
[2019-04-27] MEDS ORDERED: NYSTATIN POWDER 15GM BTL EXT PRN (21:29)
[2019-04-27] MEDS ORDERED: ALBUTEROL 0.083% NEBU SOLN 3 ML VIAL INH PRN (21:29)
[2019-04-27] MEDS ORDERED: ONDANSETRON INJ 2 MG/ML 2 ML VIAL IV PRN (21:29)
[2019-04-27] MEDS ORDERED: POLYETHYLENE (MIRALAX) 17 GM PACK PO PRN (21:29)
[2019-04-27] MEDS ORDERED: DEXTROSE 50% 50 ML SYRINGE IV PRN (21:29)
[2019-04-27] MEDS ORDERED: GLUCOSE 10 TABS/TUBE PO PRN (21:29)
[2019-04-27] MEDS ORDERED: IPRATROPIUM BROMIDE NASAL SPRAY 0.06% 15ML NAE PRN (22:50)
[2019-04-27] MEDS ORDERED: LEVOFLOXACIN/D5W 500 MG/100 ML BAG IV SCH (23:00)
[2019-04-27] MEDS ORDERED: PHARMACY GLYCEMIC MGMT CONSULT PRN (23:06)
[2019-04-27] MEDS: GABAPENTIN 600 MG TAB PO SCH (23:07)
[2019-04-27] MEDS: CITALOPRAM 40 MG TAB PO SCH (23:08)
[2019-04-27] MEDS: ATORVASTATIN 40 MG TAB PO SCH (23:08)
[2019-04-27] MEDS: ACETAMINOPHEN 325 MG TAB PO PRN (23:09)
[2019-04-27] MEDS: METOPROLOL TARTRATE 100 MG TAB PO SCH (23:09)
[2019-04-28] MEDS: COLESTIPOL HCL 1 GM TAB PO SCH ×4 (00:25→21:34)
[2019-04-28] MEDS: INSULIN GLARGINE SOLOSTAR 100 UNITS/ML 3 ML PEN SQ SCH ×3 (00:27→21:32)
[2019-04-28] MEDS: INSULIN ASPART 100 UNITS/ML 3 ML PEN SC SCH ×6 (00:32→21:31)
[2019-04-28] MEDS: IPRATROPIUM BROMIDE NEB SOLN 0.02% 2.5 ML VIAL INH SCH ×4 (00:53→19:27)
[2019-04-28] MEDS: LEVALBUTEROL HCL 0.63 MG/3 ML NEB NEB SCH ×4 (00:55→19:27)
[2019-04-28] MEDS ORDERED: XOPENEX/ATROVENT 0.63mg/0.5MG NEB COMBO NEB SCH (01:00)
[2019-04-28] MEDS ORDERED: methylPREDNISolone 40 MG in SYRINGE 0 ML IV SCH (06:00)
[2019-04-28 06:05] LABS: Hematocrit (blood only) 43.4 % (37-47); Hemoglobin 13.5 g/dL (12.0-16.0); Immature Granulocytes # (auto) 0.02 K/uL (0.00-0.02); Immature Granulocytes % (auto) 0.2 %; Lymphocytes # (auto) 0.65 K/uL (1.2-3.4); Mean Corpuscular Hemoglobin 26.3 pg (25-34); Mean Corpuscular Hgb Conc 31.1 g/dL (32-36); Mean Corpuscular Volume 84.6 fL (80-100); Mean Platelet Volume 9.6 fL (7.4-10.4); Monocytes # (auto) 0.27 K/uL (0.11-0.59); Monocytes % (auto) 3.3 %; Neutrophils # (auto) 7.16 K/uL (1.4-6.5); Neutrophils % (auto) 88.5 %; Platelet Count 279 K/uL (130-400); RDW Coefficient of Variation 14.9 % (11.5-14.5); RDW Standard Deviation 46.1 fL (36.4-46.3); Red Blood Count 5.13 M/uL (4.2-5.4)
[2019-04-28 06:39] LABS: Albumin Level 2.8 gm/dl (3.4-5.0); BUN Creatinine Ratio 13.7 (10-20); Calcium 8.9 mg/dl (8.5-10.1); Est GFR (African American) 60.6; Est GFR (Non-African American) 52.3; Potassium 3.9 mmol/L (3.5-5.1)
[2019-04-28 06:42] LABS: Albumin Globulin Ratio 0.6 (0.9-2); Bilirubin,Total 0.5 mg/dl (0.2-1); Total Protein 7.8 gm/dl (6.4-8.2)
[2019-04-28 07:51] LABS: Estimated Average Glucose 148 mg/dl; Hemoglobin A1C 6.8 % (4.5-5.6)
[2019-04-28] MEDS: HEPARIN SOD 5,000 UNIT/0.5 ML VIAL SQ SCH ×2 (08:29→21:31)
[2019-04-28] MEDS: GABAPENTIN 600 MG TAB PO SCH ×2 (08:29→21:33)
[2019-04-28] MEDS: POTASSIUM CHLORIDE 10 MEQ TABCR PO SCH (08:29)
[2019-04-28] MEDS: PANTOprazole 40 MG TAB PO SCH (08:29)
[2019-04-28] MEDS: METOPROLOL TARTRATE 100 MG TAB PO SCH ×2 (08:29→21:33)
[2019-04-28] MEDS ORDERED: INFLUENZA Vaccine HIGH DOSE 65+yrs 0.5 mL Syr IM ONE (08:30)
--- NOTE | 2019-04-28 11:04 | Hospitalist Progress Note ---
Date of Service April 28, 2019 Assessment & Plan (1) Acute respiratory failure with hypoxia: 78-year-old female past medical history of asthma, type 2 diabetes, hyperlipidemia, hypertension, diastolic congestive heart failure, who was admitted to the hospital for symptoms of dyspnea and acute CHF exacerbation versus COPD exacerbation. 1. CHF exacerbation On both pedal pretibial and hand edema after IV Lasix yesterday -Patient has diuresed just over a liter of fluid -While there may be a mixed picture most likely suffering from acute acute fluid overload CHF exacerbation. New with diuresis and monitor creatinine levels. 2. COPD We will given 125 mg of methylprednisolone IV in the emergency department; have converted this to 40 mg of prednisone once a day. Has some wheezes on exam however doubt that COPD exacerbation is her primary issue given the lack of cough or noticeable shortness of breath when on oxygen. Of note the patient does wear oxygen at home however not when she is ambulatory. white Blood cell count at 8 unlikely to be superimposed pneumonia. Patient has also been afebrile during her stay. DVT ppx: hep 5000 sq diet: DM, heart healthy Code: full code (2) Hyperglycemia: (3) Diastolic congestive heart failure: Admission and Anticipated Discharge Date Admission Date: April 27, 2019 Supervising Physician Co-Signing Physician Notes I saw the patient the resident physician and confirmed cleaning portions of the history and physical examination. When we saw the patient just before lunch, her daughter is at bedside. She was noted yesterday with a history of progressive shortness of breath over the past 7 days along with a 10 pound weight gain. Chest x-ray in the emergency department was most consistent with pulmonary edema. She was given 40 mg of IV Lasix prior to admission, as well as 125 mg of methylprednisolone. This morning, both the patient and her daughter note that she is breathing easier; she is less dyspneic with conversation; she notes less edema of her hands and lower extremities. Blood pressure 124/84, she remains afebrile; pulse oximetry 95% on 2 L of oxygen via nasal cannula. She is alert and oriented. She is eating lunch during examination. Lungs somewhat coarse, decreased in the bases bilaterally, subtle end expiratory wheeze. Extremities with trace pedal edema; her rings appear to be fitting well. repeat chest x-ray this afternoon shows resolving pulmonary edema; bibasilar atelectasis. No evidence of consolidation. White blood cell count has normalized. Electrolytes are unremarkable. Glucose 151. CHF, diastolic, acute on chronic -improved with diuresis COPD, acute exacerbation-improved with IV steroids Repeat chest x-ray today Continue diureses Monitor BMP Likely change IV steroids to oral tomorrow Subjective 78-year-old female with past medical of diabetes type 2, hyperlipidemia, hypertension, diastolic congestive heart failure who was brought to the emergency department by her daughter for complaints of shortness of breath as well as a 10 pound weight gain in the past week. In the emergency department chest x-ray was done showing a picture of CHF/pulmonary edema. Creatinine in the emergency department was 0.87 she also had a white blood cell count of 10.86. Patient was given 125 mg of IV methylprednisone as well as 40 mg of IV Lasix prior to admission. This morning she attest that she still feels short of breath despite now being on oxygen. Denies any chest pain or palpitations or cough. Nausea vomiting. Review of Systems Review of Systems: All systems reviewed & are unremarkable except as noted in Subjective Physical Exam Physical Exam: Constitutional: Sitting upright, alert and oriented in bed. Cardiac: Regular rate and rhythm no murmurs, gallops, rubs normal S1-S2. Pulmonary: Mild end expiratory wheeze throughout all lung sampson. No crackles rhonchi or rales noted. GI: Abdomen nondistended, soft, nontender, normal bowel sounds present. Extremities: No pedal or pretibial edema noted. 2+ posterior tibial pulses. Results & Data ([facility]) Vital Signs (Past 12 Hours) Vital Signs Temp Pulse Pulse Resp BP Pulse Ox 04/28/19 08:22 36.9 C 89 20 134/65 94 04/28/19 08:00 101 H 04/28/19 06:54 88 18 97 04/28/19 03:47 36.5 C 89 18 170/85 H 93 04/28/19 00:55 95 H 18 97 04/28/19 00:42 37.1 C 78 18 146/127 H 95 04/28/19 04/28/19 04/28/19 Range/Units 07:25 05:54 05:54 WBC (4.8-10.8) K/uL RBC (4.2-5.4) M/uL Hgb (12.0-16.0) g/dL Hct (37-47) % MCV (80-100) fL MCH (25-34) pg MCHC (32-36) g/dL RDW Std Deviation (36.4-46.3) fL RDW Coeff of Erin (11.5-14.5) % Plt Count (130-400) K/uL MPV (7.4-10.4) fL Immature Gran % (Auto) % Neut % (Auto) % Lymph % (Auto) % [place] % (Auto) % Eos % (Auto) % Baso % (Auto) % Immature Gran # (Auto) (0.00-0.02) K/uL Neut # (Auto) (1.4-6.5) K/uL Lymph # (Auto) (1.2-3.4) K/uL [place] # (Auto) (0.11-0.59) K/uL Eos # (Auto) (0-0.5) K/uL Baso # (Auto) (0-0.2) K/uL PT (9.0-12.0) Seconds INR (0.9-1.1) APTT (21.0-31.0) Seconds PTT Ratio VBG pH (7.36-7.41) VBG pCO2 (38-50) mmHg VBG pO2 mmHg VBG HCO3 mmol/L VBG O2 Saturation % VBG Base Excess mEq/L Barometric Pressure mm/Hg Sodium 140 (136-145) mmol/L Potassium 3.9 (3.5-5.1) mmol/L Chloride 107 (98-107) mmol/L Carbon Dioxide 26 (21-32) mmol/L Anion Gap 7.0 (3-11) BUN 14 (7-18) mg/dl Creatinine 1.02 (0.6-1.2) mg/dl Est Cr Clr Drug Dosing 56.0 Est GFR ( Amer) 60.6 Est GFR (Non-Af Amer) 52.3 BUN/Creatinine Ratio 13.7 (10-20) Glucose 238 H (70-99) mg/dl POC Glucose 199 H (70-99) mg/dl Estimat Average Glucose 148 mg/dl Hemoglobin A1c 6.8 H (4.5-5.6) % Lactate (0.4-2.0) mmol/L Calcium 8.9 (8.5-10.1) mg/dl Phosphorus (2.5-4.9) mg/dl Magnesium (1.8-2.4) mg/dl Total Bilirubin 0.5 (0.2-1) mg/dl AST 16 (15-37) U/L ALT 15 (12-78) U/L Alkaline Phosphatase 149 H (45-117) U/L Troponin I (0-0.045) ng/ml NT-Pro-B Natriuret Pep (0-1800) pg/ml Total Protein 7.8 (6.4-8.2) gm/dl Albumin 2.8 L (3.4-5.0) gm/dl Globulin 5.0 H (2.5-4.0) gm/dl Albumin/Globulin Ratio 0.6 L (0.9-2) Triglycerides 58 (0-150) mg/dl Cholesterol 91 (0-200) mg/dl LDL Cholesterol, Calc 22 mg/dl VLDL Cholesterol, Calc 12 mg/dl HDL Cholesterol 57 mg/dl Cholesterol/HDL Ratio 2 Procalcitonin (0-0.5) ng/ml Urine Color Urine Appearance (Clear) Urine pH (4.5-7.5) Ur Specific [place] (1.000-1.030) Urine Protein (Negative) Urine Glucose (UA) (Negative) Urine Ketones (Negative) Urine Blood (Negative) Urine Nitrite (Negative) Urine Bilirubin (Negative) Urine Urobilinogen (Negative) Ur Leukocyte Esterase (Negative) Urine WBC (Auto) (0-5) /hpf Urine RBC (Auto) (0-4) /hpf U Hyaline Cast (Auto) (0-5) /lpf U Epithel Cells (Auto) (0-5) /lpf Urine Bacteria (Auto) (Negative) 04/28/19 04/28/19 04/28/19 Range/Units 05:54 03:52 00:16 WBC 8.10 (4.8-10.8) K/uL RBC 5.13 (4.2-5.4) M/uL Hgb 13.5 (12.0-16.0) g/dL Hct 43.4 (37-47) % MCV 84.6 (80-100) fL MCH 26.3 (25-34) pg MCHC 31.1 L (32-36) g/dL RDW Std Deviation 46.1 (36.4-46.3) fL RDW Coeff of Erin 14.9 H (11.5-14.5) % Plt Count 279 (130-400) K/uL MPV 9.6 (7.4-10.4) fL Immature Gran % (Auto) 0.2 % Neut % (Auto) 88.5 % Lymph % (Auto) 8.0 % [place] % (Auto) 3.3 % Eos % (Auto) 0.0 % Baso % (Auto) 0.0 % Immature Gran # (Auto) 0.02 (0.00-0.02) K/uL Neut # (Auto) 7.16 H (1.4-6.5) K/uL Lymph # (Auto) 0.65 L (1.2-3.4) K/uL [place] # (Auto) 0.27 (0.11-0.59) K/uL Eos # (Auto) 0.00 (0-0.5) K/uL Baso # (Auto) 0.00 (0-0.2) K/uL PT (9.0-12.0) Seconds INR (0.9-1.1) APTT (21.0-31.0) Seconds PTT Ratio VBG pH (7.36-7.41) VBG pCO2 (38-50) mmHg VBG pO2 mmHg VBG HCO3 mmol/L VBG O2 Saturation % VBG Base Excess mEq/L Barometric Pressure mm/Hg Sodium (136-145) mmol/L Potassium (3.5-5.1) mmol/L Chloride (98-107) mmol/L Carbon Dioxide (21-32) mmol/L Anion Gap (3-11) BUN (7-18) mg/dl Creatinine (0.6-1.2) mg/dl Est Cr Clr Drug Dosing Est GFR ( Amer) Est GFR (Non-Af Amer) BUN/Creatinine Ratio (10-20) Glucose (70-99) mg/dl POC Glucose 303 H* 265 H (70-99) mg/dl Estimat Average Glucose mg/dl Hemoglobin A1c (4.5-5.6) % Lactate (0.4-2.0) mmol/L Calcium (8.5-10.1) mg/dl Phosphorus (2.5-4.9) mg/dl Magnesium (1.8-2.4) mg/dl Total Bilirubin (0.2-1) mg/dl AST (15-37) U/L ALT (12-78) U/L Alkaline Phosphatase (45-117) U/L Troponin I (0-0.045) ng/ml NT-Pro-B Natriuret Pep (0-1800) pg/ml Total Protein (6.4-8.2) gm/dl Albumin (3.4-5.0) gm/dl Globulin (2.5-4.0) gm/dl Albumin/Globulin Ratio (0.9-2) Triglycerides (0-150) mg/dl Cholesterol (0-200) mg/dl LDL Cholesterol, Calc mg/dl VLDL Cholesterol, Calc mg/dl HDL Cholesterol mg/dl Cholesterol/HDL Ratio Procalcitonin (0-0.5) ng/ml Urine Color Urine Appearance (Clear) Urine pH (4.5-7.5) Ur Specific [place] (1.000-1.030) Urine Protein (Negative) Urine Glucose (UA) (Negative) Urine Ketones (Negative) Urine Blood (Negative) Urine Nitrite (Negative) Urine Bilirubin (Negative) Urine Urobilinogen (Negative) Ur Leukocyte Esterase (Negative) Urine WBC (Auto) (0-5) /hpf Urine RBC (Auto) (0-4) /hpf U Hyaline Cast (Auto) (0-5) /lpf U Epithel Cells (Auto) (0-5) /lpf Urine Bacteria (Auto) (Negative) 04/27/19 04/27/19 04/27/19 Range/Units 20:24 19:35 18:02 WBC (4.8-10.8) K/uL RBC (4.2-5.4) M/uL Hgb (12.0-16.0) g/dL Hct (37-47) % MCV (80-100) fL MCH (25-34) pg MCHC (32-36) g/dL RDW Std Deviation (36.4-46.3) fL RDW Coeff of Erin (11.5-14.5) % Plt Count (130-400) K/uL MPV (7.4-10.4) fL Immature Gran % (Auto) % Neut % (Auto) % Lymph % (Auto) % [place] % (Auto) % Eos % (Auto) % Baso % (Auto) % Immature Gran # (Auto) (0.00-0.02) K/uL Neut # (Auto) (1.4-6.5) K/uL Lymph # (Auto) (1.2-3.4) K/uL [place] # (Auto) (0.11-0.59) K/uL Eos # (Auto) (0-0.5) K/uL Baso # (Auto) (0-0.2) K/uL PT (9.0-12.0) Seconds INR (0.9-1.1) APTT (21.0-31.0) Seconds PTT Ratio VBG pH (7.36-7.41) VBG pCO2 (38-50) mmHg VBG pO2 mmHg VBG HCO3 mmol/L VBG O2 Saturation % VBG Base Excess mEq/L Barometric Pressure mm/Hg Sodium (136-145) mmol/L Potassium (3.5-5.1) mmol/L Chloride (98-107) mmol/L Carbon Dioxide (21-32) mmol/L Anion Gap (3-11) BUN (7-18) mg/dl Creatinine (0.6-1.2) mg/dl Est Cr Clr Drug Dosing Est GFR ( Amer) Est GFR (Non-Af Amer) BUN/Creatinine Ratio (10-20) Glucose (70-99) mg/dl POC Glucose 210 H 175 H (70-99) mg/dl Estimat Average Glucose mg/dl Hemoglobin A1c (4.5-5.6) % Lactate (0.4-2.0) mmol/L Calcium (8.5-10.1) mg/dl Phosphorus (2.5-4.9) mg/dl Magnesium (1.8-2.4) mg/dl Total Bilirubin (0.2-1) mg/dl AST (15-37) U/L ALT (12-78) U/L Alkaline Phosphatase (45-117) U/L Troponin I (0-0.045) ng/ml NT-Pro-B Natriuret Pep (0-1800) pg/ml Total Protein (6.4-8.2) gm/dl Albumin (3.4-5.0) gm/dl Globulin (2.5-4.0) gm/dl Albumin/Globulin Ratio (0.9-2) Triglycerides (0-150) mg/dl Cholesterol (0-200) mg/dl LDL Cholesterol, Calc mg/dl VLDL Cholesterol, Calc mg/dl HDL Cholesterol mg/dl Cholesterol/HDL Ratio Procalcitonin (0-0.5) ng/ml Urine Color Yellow Urine Appearance Clear (Clear) Urine pH 7.0 (4.5-7.5) Ur Specific [place] 1.008 (1.000-1.030) Urine Protein Negative (Negative) Urine Glucose (UA) Negative (Negative) Urine Ketones Negative (Negative) Urine Blood Trace H (Negative) Urine Nitrite Negative (Negative) Urine Bilirubin Negative (Negative) Urine Urobilinogen Negative (Negative) Ur Leukocyte Esterase Negative (Negative) Urine WBC (Auto) 1-5 (0-5) /hpf Urine RBC (Auto) 0-4 (0-4) /hpf U Hyaline Cast (Auto) 0 (0-5) /lpf U Epithel Cells (Auto) 20-30 H (0-5) /lpf Urine Bacteria (Auto) Negative (Negative) 04/27/19 04/27/19 04/27/19 Range/Units 17:39 17:32 17:32 WBC (4.8-10.8) K/uL RBC (4.2-5.4) M/uL Hgb (12.0-16.0) g/dL Hct (37-47) % MCV (80-100) fL MCH (25-34) pg MCHC (32-36) g/dL RDW Std Deviation (36.4-46.3) fL RDW Coeff of Erin (11.5-14.5) % Plt Count (130-400) K/uL MPV (7.4-10.4) fL Immature Gran % (Auto) % Neut % (Auto) % Lymph % (Auto) % [place] % (Auto) % Eos % (Auto) % Baso % (Auto) % Immature Gran # (Auto) (0.00-0.02) K/uL Neut # (Auto) (1.4-6.5) K/uL Lymph # (Auto) (1.2-3.4) K/uL [place] # (Auto) (0.11-0.59) K/uL Eos # (Auto) (0-0.5) K/uL Baso # (Auto) (0-0.2) K/uL PT (9.0-12.0) Seconds INR (0.9-1.1) APTT (21.0-31.0) Seconds PTT Ratio VBG pH 7.37 (7.36-7.41) VBG pCO2 46 (38-50) mmHg VBG pO2 31 mmHg VBG HCO3 26 mmol/L VBG O2 Saturation < 60.0 % VBG Base Excess 0.2 mEq/L Barometric Pressure 727.0 mm/Hg Sodium (136-145) mmol/L Potassium (3.5-5.1) mmol/L Chloride (98-107) mmol/L Carbon Dioxide (21-32) mmol/L Anion Gap (3-11) BUN (7-18) mg/dl Creatinine (0.6-1.2) mg/dl Est Cr Clr Drug Dosing Est GFR ( Amer) Est GFR (Non-Af Amer) BUN/Creatinine Ratio (10-20) Glucose (70-99) mg/dl POC Glucose (70-99) mg/dl Estimat Average Glucose mg/dl Hemoglobin A1c (4.5-5.6) % Lactate 1.6 (0.4-2.0) mmol/L Calcium (8.5-10.1) mg/dl Phosphorus (2.5-4.9) mg/dl Magnesium (1.8-2.4) mg/dl Total Bilirubin (0.2-1) mg/dl AST (15-37) U/L ALT (12-78) U/L Alkaline Phosphatase (45-117) U/L Troponin I (0-0.045) ng/ml NT-Pro-B Natriuret Pep (0-1800) pg/ml Total Protein (6.4-8.2) gm/dl Albumin (3.4-5.0) gm/dl Globulin (2.5-4.0) gm/dl Albumin/Globulin Ratio (0.9-2) Triglycerides (0-150) mg/dl Cholesterol (0-200) mg/dl LDL Cholesterol, Calc mg/dl VLDL Cholesterol, Calc mg/dl HDL Cholesterol mg/dl Cholesterol/HDL Ratio Procalcitonin < 0.05 (0-0.5) ng/ml Urine Color Urine Appearance (Clear) Urine pH (4.5-7.5) Ur Specific [place] (1.000-1.030) Urine Protein (Negative) Urine Glucose (UA) (Negative) Urine Ketones (Negative) Urine Blood (Negative) Urine Nitrite (Negative) Urine Bilirubin (Negative) Urine Urobilinogen (Negative) Ur Leukocyte Esterase (Negative) Urine WBC (Auto) (0-5) /hpf Urine RBC (Auto) (0-4) /hpf U Hyaline Cast (Auto) (0-5) /lpf U Epithel Cells (Auto) (0-5) /lpf Urine Bacteria (Auto) (Negative) 04/27/19 04/27/19 04/27/19 Range/Units 17:32 17:32 17:32 WBC 10.86 H (4.8-10.8) K/uL RBC 5.13 (4.2-5.4) M/uL Hgb 13.3 (12.0-16.0) g/dL Hct 43.7 (37-47) % MCV 85.2 (80-100) fL MCH 25.9 (25-34) pg MCHC 30.4 L (32-36) g/dL RDW Std Deviation 46.7 H (36.4-46.3) fL RDW Coeff of Erin 14.9 H (11.5-14.5) % Plt Count 283 (130-400) K/uL MPV 9.9 (7.4-10.4) fL Immature Gran % (Auto) 0.2 % Neut % (Auto) 71.1 % Lymph % (Auto) 17.8 % [place] % (Auto) 9.0 % Eos % (Auto) 1.7 % Baso % (Auto) 0.2 % Immature Gran # (Auto) 0.02 (0.00-0.02) K/uL Neut # (Auto) 7.73 H (1.4-6.5) K/uL Lymph # (Auto) 1.93 (1.2-3.4) K/uL [place] # (Auto) 0.98 H (0.11-0.59) K/uL Eos # (Auto) 0.18 (0-0.5) K/uL Baso # (Auto) 0.02 (0-0.2) K/uL PT 10.6 (9.0-12.0) Seconds INR 1.0 (0.9-1.1) APTT 27.9 (21.0-31.0) Seconds PTT Ratio 1.0 VBG pH (7.36-7.41) VBG pCO2 (38-50) mmHg VBG pO2 mmHg VBG HCO3 mmol/L VBG O2 Saturation % VBG Base Excess mEq/L Barometric Pressure mm/Hg Sodium 140 (136-145) mmol/L Potassium 3.9 (3.5-5.1) mmol/L Chloride 110 H (98-107) mmol/L Carbon Dioxide 27 (21-32) mmol/L Anion Gap 3.0 (3-11) BUN 15 (7-18) mg/dl Creatinine 0.87 (0.6-1.2) mg/dl Est Cr Clr Drug Dosing Not Reportable Est GFR ( Amer) 73.4 Est GFR (Non-Af Amer) 63.4 BUN/Creatinine Ratio 16.7 (10-20) Glucose 186 H (70-99) mg/dl POC Glucose (70-99) mg/dl Estimat Average Glucose mg/dl Hemoglobin A1c (4.5-5.6) % Lactate (0.4-2.0) mmol/L Calcium 8.4 L (8.5-10.1) mg/dl Phosphorus 2.0 L (2.5-4.9) mg/dl Magnesium 2.2 (1.8-2.4) mg/dl Total Bilirubin 0.3 (0.2-1) mg/dl AST 18 (15-37) U/L ALT 17 (12-78) U/L Alkaline Phosphatase 158 H (45-117) U/L Troponin I < 0.015 (0-0.045) ng/ml NT-Pro-B Natriuret Pep 2024 H (0-1800) pg/ml Total Protein 7.9 (6.4-8.2) gm/dl Albumin 3.0 L (3.4-5.0) gm/dl Globulin 4.9 H (2.5-4.0) gm/dl Albumin/Globulin Ratio 0.6 L (0.9-2) Triglycerides (0-150) mg/dl Cholesterol (0-200) mg/dl LDL Cholesterol, Calc mg/dl VLDL Cholesterol, Calc mg/dl HDL Cholesterol mg/dl Cholesterol/HDL Ratio Procalcitonin (0-0.5) ng/ml Urine Color Urine Appearance (Clear) Urine pH (4.5-7.5) Ur Specific [place] (1.000-1.030) Urine Protein (Negative) Urine Glucose (UA) (Negative) Urine Ketones (Negative) Urine Blood (Negative) Urine Nitrite (Negative) Urine Bilirubin (Negative) Urine Urobilinogen (Negative) Ur Leukocyte Esterase (Negative) Urine WBC (Auto) (0-5) /hpf Urine RBC (Auto) (0-4) /hpf U Hyaline Cast (Auto) (0-5) /lpf U Epithel Cells (Auto) (0-5) /lpf Urine Bacteria (Auto) (Negative) Resident Activity Tracking Resident Involvement: Resident Care Provided Care Provided: Adult Hospital Medicine
--- NOTE | 2019-04-28 13:40 | XRay Report ---
XR chest 2V PA/lateral CLINICAL HISTORY: Hypoxia COMPARISON STUDY: 04/27/2019 FINDINGS: Study is rotated. The heart is mildly enlarged. There is resolving asymmetric pulmonary britney ma. Small pleural effusions are suspected. There is bibasilar atelectasis. There is no lobar consolid ation. IMPRESSION: 1. Resolving pulmonary edema 2. Small bilateral pleural effusions 3. Bibasilar atelectasis ACT 112: Negative or not required by law. Electronically signed by: Fletcher Fernando M.D. 04/28/2019 1:39 PM
--- NOTE | 2019-04-28 14:51 | Pharmacy Report ---
Glycemic Control Consultation - Date of Service April 28, 2019 - Scope Scope: Glycemic Pharmacist consulted by Dr Upton on 04/28/19 for glycemic control and to write orders per [facility] inpatient glycemic control protocol - Objective Weight: 118.8 kg Accuchecks BSG (last 24hrs): 04/27/19 04/27/19 04/27/19 17:32 18:02 20:24 Glucose 186 H POC Glucose 175 H 210 H 04/28/19 04/28/19 04/28/19 00:16 03:52 05:54 Glucose 238 H POC Glucose 265 H 303 H* 04/28/19 04/28/19 07:25 11:42 Glucose POC Glucose 199 H 234 H Laboratory Data (last 24hrs): 04/27/19 04/28/19 17:32 05:54 Potassium 3.9 3.9 Carbon Dioxide 27 26 Anion Gap 3.0 7.0 Creatinine 0.87 1.02 Est Cr Clr Drug Dosing Not Reportable 56.0 HbA1c: Hemoglobin A1c 6.8 % (4.5-5.6) H 04/28/19 05:54 - Recent Pertinent Medications Outpatient Anti-diabetic Regimen: * Lantus 25 units SQ BID * A1c = 6.8 % 04/28/19 The patient is currently receiving: * Basal insulin: Lantus 20 units every 12 hours * Correctional Insulin: Novolog Correction per scale ACHS Goal Range: Low 110 mg/dL - High 150 mg/dL Correction Factor: 15 mg/dL/unit * Prandial insulin: Per carb ratio of 1 unit per 5 grams CHO consumed Risk Factors for Insulin Resistance: * Steroids: Solu-medrol 40mg IV Q12H * Infection: IV Levaquin * Diet: Type 2 DM - Assessment & Plan Assessment & Plan: ASSESSMENT: * 78 year old admitted with acute respiratory failure, hypoxia, CHF, on IV Levaquin and IV Steroids with steroid induced hyperglycemia. * Will continue home dose of basal and tighten CF and CR for steroid effects. * ADA & AACE recommend a goal blood sugar range 140-180 mg/dl for the majority of critically ill & non-critically ill patients. However, more stringent targets may be selected in individual cases. Will utilize more stringent goal of 110-140mg/dl based on patient age & comorbidities. Additionally, tighter glycemic control is warranted to facilitate wound/infection healing. PLAN FOR INPATIENT GLYCEMIC CONTROL: * Basal insulin - increase * Lantus 25 units SQ BID * Bolus insulin * NovoLog per scale ACHS or Q6hrs while NPO * tighten: Goal Range: Low 110 mg/dL - High 140 mg/dL * tighten: Correction Factor: 12 mg/dL/unit * tighten: Nutritional / Prandial insulin per carb ratio of 1 unit per 4 grams CHO consumed * Please note that the plan above was derived based on current level of insulin resistance and hospital stress. These recommendations are appropriate for inpatient admission only. Plan of care upon discharge will need to be reassessed to avoid potential outpatient hypo/hyperglycemia. Thank you.
[2019-04-28] MEDS ORDERED: FUROSEMIDE 40 MG in SYRINGE 0 ML IV ONE (15:30)
--- NOTE | 2019-04-28 18:25 | Electrocardiogram Report ---
Test Reason : Blood Pressure : / mmHG Vent. Rate : 106 BPM Atrial Rate : 100 BPM P-R Int : 000 ms QRS Dur : 080 ms QT Int : 346 ms P-R-T Axes : 000 -21 080 degrees QTc Int : 459 ms Poor data quality, interpretation may be adversely affected Sinus rhythm with PVCs in a pattern of trigeminy Abnormal ECG When compared with ECG of 20-AUG-2018 10:17, Vent. rate has increased BY 38 BPM Confirmed by Mazin Ashraf ([id number]) on 04/28/2019 6:24:56 PM Referred By: REFERRED SELF Confirmed By:George Ashraf
[2019-04-28] MEDS: ATORVASTATIN 40 MG TAB PO SCH (21:33)
[2019-04-28] MEDS: CITALOPRAM 40 MG TAB PO SCH (21:33)
[2019-04-29] MEDS: IPRATROPIUM BROMIDE NEB SOLN 0.02% 2.5 ML VIAL INH SCH ×3 (00:51→13:03)
[2019-04-29] MEDS: LEVALBUTEROL HCL 0.63 MG/3 ML NEB NEB SCH ×3 (00:51→13:03)
--- NOTE | 2019-04-29 07:37 | Hospitalist Progress Note ---
Date of Service April 29, 2019 Assessment & Plan (1) Acute respiratory failure with hypoxia: 78-year-old female past medical history of asthma, type 2 diabetes, hyperlipidemia, hypertension, diastolic congestive heart failure, who was admitted to the hospital for symptoms of dyspnea and acute CHF exacerbation versus COPD exacerbation. 1. CHF exacerbation Swelling significantly improved. -Converted to home PO Lasix 40mg qAM. -While there may be a mixed picture most likely suffering from acute acute fluid overload CHF exacerbation. -Repeat CXR yesterday showed improvement. -Continue to monitor I/O and Weights -Monitor renal function -No concerns noted from speech therapy for aspiration risk. -Patient noted today that she had possibly missed a few days of her home Lasix, possibly prompting this current admission. 2. COPD Was given 125 mg of methylprednisolone IV in the emergency department; have converted this to 40 mg of prednisone QD Has some wheezes on exam however doubt that COPD exacerbation is her primary issue given the lack of cough or noticeable shortness of breath when on oxygen. Patient this AM denies use of O2 at home, currently saturating well on RA at 93%. -Continue Atrovent and Xopenex 3. HTN -Continue home Metoprolol 100mg BID -Resume home Lasix 40mg qAM 4. Hypercholesteremia -Continue home Atorvastatin -Continue home Colestipol 5. Depression -Continue home Celexa 6. GERD -Continue home Protonix 7. DM2 with Diabetic Neuropathy -Glycemic Consult -Lantus 25u BID, Novolog -Continue home Neurontin 8. Low Back Pain -Continue home Mobic and Tramadol PRN -[place] PRN -Will have PT evaluate patient inpatient. She does note that she was to start PT at home on 05/02/19. DVT ppx: hep 5000 sq diet: DM, heart healthy Code: full code Dispo: Tele (2) Hyperglycemia: (3) Diastolic congestive heart failure: Admission and Anticipated Discharge Date Admission Date: April 27, 2019 Supervising Physician Co-Signing Physician Notes I saw the patient with the resident physician confirmed cleaning portions of the history and physical examination. At the time of our visit, the patient was in her bed; her daughter was bedside. She generally feels well; no complaints today; denies chest pain, shortness of breath. Blood pressure 121/66, pulse oximetry 97% on room air Upon my examination, the lungs are basically clear; slightly decreased in the bases secondary to inspiratory effort; I do not appreciate any wheezing Blood blood cell count 10.32, hemoglobin 12.5. BUN 33, creatinine 1.15 CHF, diastolic, acute on chronic -improved with diuresis COPD, acute exacerbation-improved with IV steroids Resume home dose of Lasix Change IV steroids to prednisone PT/OT consultation Subjective Patient notes that she is feeling well today. States that her breathing and swelling have both improved. She does still note a cough with white sputum. She has not had any problems after coming off of NH. Review of Systems Constitutional: no fever, no chills and no sweats Eyes: no eye pain Ear, Nose, Mouth, Throat: no hearing loss and no dizziness Respiratory: + cough, + sputum production (white sputum) and + wheezing; no dyspnea, no hemoptysis and no pain on inspiration Cardiovascular: + edema; no chest pain, no dyspnea and no palpitations Gastrointestinal: no abdominal pain, no nausea and no vomiting Genitourinary: no dysuria and no hematuria Musculoskeletal: + back pain Physical Exam Constitutional: well developed, well nourished, + obese and cooperative; no acute distress, not ill appearing and not in distress Eyes: PERRL, conjunctivae normal, anicteric sclerae ENMT: Ears: no hearing impairment Neck: normal visual inspection Respiratory: + cough; no respiratory distress, no labored breathing and does not use accessory muscles Auscultation: lungs clear to auscultation bilaterally and + wheezes (diffuse expiratory wheezes); no crackles, no rales and no rhonchi Cardiovascular: Rate/Rhythm: regular rate and regular rhythm Heart Sounds: no gallop, no murmur and no cardiac rub Vessels: no JVD Extremities: + edema (+1); no calf tenderness Chest (Breasts): Additional Comments: R chest wall dressing CDI, minimal tenderness to palpation around dressing site. Gastrointestinal (Abdomen): normal bowel sounds, soft, nontender, no hepato splenomegaly Results & Data ([facility]) Vital Signs (Past 12 Hours) Vital Signs Temp Pulse Resp BP Pulse Ox 04/29/19 07:22 70 18 97 04/29/19 07:06 36.7 C 77 18 121/66 93 04/29/19 04:25 36.8 C 88 18 120/66 93 04/29/19 00:53 68 14 98 04/29/19 00:00 37.0 C 65 18 119/67 97 04/28/19 20:39 68 14 98 Resident Activity Tracking Resident Involvement: Resident Care Provided Care Provided: Adult Hospital Medicine
[2019-04-29 07:48] LABS: Basophils # (auto) 0.01 K/uL (0-0.2); Basophils % (auto) 0.1 %; Eosinophils # (auto) 0.01 K/uL (0-0.5); Eosinophils % (auto) 0.1 %; Hematocrit (blood only) 41.5 % (37-47); Hemoglobin 12.5 g/dL (12.0-16.0); Immature Granulocytes # (auto) 0.02 K/uL (0.00-0.02); Immature Granulocytes % (auto) 0.2 %; Lymphocytes # (auto) 1.93 K/uL (1.2-3.4); Lymphocytes % (auto) 18.7 %; Mean Corpuscular Hemoglobin 25.6 pg (25-34); Mean Corpuscular Hgb Conc 30.1 g/dL (32-36); Mean Corpuscular Volume 84.9 fL (80-100); Mean Platelet Volume 9.9 fL (7.4-10.4); Monocytes # (auto) 0.94 K/uL (0.11-0.59); Monocytes % (auto) 9.1 %; Neutrophils # (auto) 7.41 K/uL (1.4-6.5); Neutrophils % (auto) 71.8 %; Platelet Count 242 K/uL (130-400); RDW Coefficient of Variation 15.1 % (11.5-14.5); RDW Standard Deviation 46.6 fL (36.4-46.3); Red Blood Count 4.89 M/uL (4.2-5.4); White Blood Count 10.32 K/uL (4.8-10.8)
[2019-04-29] MEDS: PANTOprazole 40 MG TAB PO SCH (08:24)
[2019-04-29] MEDS: GABAPENTIN 600 MG TAB PO SCH ×2 (08:24→21:26)
[2019-04-29] MEDS: POTASSIUM CHLORIDE 10 MEQ TABCR PO SCH (08:24)
[2019-04-29] MEDS: predniSONE 20 MG TAB PO SCH (08:25)
[2019-04-29] MEDS: HEPARIN SOD 5,000 UNIT/0.5 ML VIAL SQ SCH ×2 (08:25→21:31)
[2019-04-29] MEDS: INSULIN GLARGINE SOLOSTAR 100 UNITS/ML 3 ML PEN SQ SCH ×2 (08:25→21:30)
[2019-04-29] MEDS: METOPROLOL TARTRATE 100 MG TAB PO SCH ×2 (08:25→20:41)
[2019-04-29] MEDS: INSULIN ASPART 100 UNITS/ML 3 ML PEN SC SCH ×4 (08:26→21:31)
[2019-04-29 08:33] LABS: Albumin Globulin Ratio 0.6 (0.9-2); Albumin Level 2.6 gm/dl (3.4-5.0); BUN Creatinine Ratio 28.3 (10-20); Bilirubin,Total 0.3 mg/dl (0.2-1); Calcium 8.8 mg/dl (8.5-10.1); Creatinine Clr Calc Pharmacy 49.4 ml/min; Est GFR (African American) 52.4; Est GFR (Non-African American) 45.2; Globulin 4.4 gm/dl (2.5-4.0)
[2019-04-29] MEDS: COLESTIPOL HCL 1 GM TAB PO SCH ×3 (11:04→22:11)
--- NOTE | 2019-04-29 12:47 | Pharmacy Report ---
Pharmacy Glycemic Short Note 2 - Date of Service April 29, 2019 - Glycemic Short BSG Results (Last 24 hours): 04/28/19 04/28/19 04/29/19 16:39 20:04 07:36 Glucose 116 H POC Glucose 151 H 85 04/29/19 04/29/19 07:47 11:30 Glucose POC Glucose 114 H 163 H OUTPATIENT ANTIDIABETIC REGIMEN: * Lantus 25 units SQ BID * A1c = 6.8 % 04/28/19 - Assessment & Plan ASSESSMENT: * Patient is currently receiving an average of 80 units of insulin per day * 45 units of basal insulin * 37 units of prandial/correctional insulin * BSGs ranging 85- 163 over the past 24hrs * Risk factors for insulin resistance are DECREASING over the past 24hrs * Steroid dosing decreasing - Solumedrol 40 mg q12h -> prednisone 40 mg daily * Anticipating insulin regimen will need decreased for the next 24hrs: * Fasting BSG = 114 mg/dL (down from 199 mg/dL yesterday) and on once daily steroids so effects should dissipate overnight * Postprandials were decreased yesterday so will loosen Novolog parameters 04/28 * 78 year old admitted with acute respiratory failure, hypoxia, CHF, on IV Levaquin and IV Steroids with steroid induced hyperglycemia. * Will continue home dose of basal and tighten CF and CR for steroid effects. * ADA & AACE recommend a goal blood sugar range 140-180 mg/dl for the majority of critically ill & non-critically ill patients. However, more stringent targets may be selected in individual cases. Will utilize more stringent goal of 110-140mg/dl based on patient age & comorbidities. Additionally, tighter glycemic control is warranted to facilitate wound/infection healing. PLAN FOR INPATIENT GLYCEMIC CONTROL: * Basal insulin - decrease PM dose * Lantus 25 units qAM, 15 units qPM * Bolus insulin - loosen CF/CR * NovoLog per scale ACHS or Q6hrs while NPO * Goal Range: Low 110 mg/dL - High 140 mg/dL * Correction Factor: 15 mg/dL/unit * Nutritional / Prandial insulin per carb ratio of 1 unit per 5 grams CHO consumed
[2019-04-29] MEDS: FUROSEMIDE 40 MG TAB PO SCH (15:15)
[2019-04-29] MEDS: ACETAMINOPHEN 325 MG TAB PO PRN (17:22)
[2019-04-29] MEDS ORDERED: IPRATROPIUM BROMIDE NEB SOLN 0.02% 2.5 ML VIAL INH PRN (18:51)
[2019-04-29] MEDS ORDERED: LEVALBUTEROL HCL 0.63 MG/3 ML NEB NEB PRN (18:52)
[2019-04-29] MEDS: ATORVASTATIN 40 MG TAB PO SCH (20:40)
[2019-04-29] MEDS: CITALOPRAM 40 MG TAB PO SCH (20:40)
[2019-04-30 05:57] LABS: Basophils # (auto) 0.01 K/uL (0-0.2); Basophils % (auto) 0.1 %; Hematocrit (blood only) 41.6 % (37-47); Hemoglobin 12.4 g/dL (12.0-16.0); Immature Granulocytes # (auto) 0.02 K/uL (0.00-0.02); Immature Granulocytes % (auto) 0.2 %; Lymphocytes # (auto) 1.52 K/uL (1.2-3.4); Lymphocytes % (auto) 16.1 %; Mean Corpuscular Hemoglobin 25.1 pg (25-34); Mean Corpuscular Hgb Conc 29.8 g/dL (32-36); Mean Corpuscular Volume 84.2 fL (80-100); Mean Platelet Volume 10.3 fL (7.4-10.4); Monocytes % (auto) 7.4 %; Neutrophils # (auto) 7.19 K/uL (1.4-6.5); Neutrophils % (auto) 76.2 %; Platelet Count 266 K/uL (130-400); RDW Coefficient of Variation 14.9 % (11.5-14.5); RDW Standard Deviation 45.9 fL (36.4-46.3); Red Blood Count 4.94 M/uL (4.2-5.4); White Blood Count 9.44 K/uL (4.8-10.8)
[2019-04-30 06:30] LABS: Albumin Level 2.6 gm/dl (3.4-5.0); Calcium 8.3 mg/dl (8.5-10.1); Creatinine Clr Calc Pharmacy 64.5 ml/min; Est GFR (African American) 72.4; Est GFR (Non-African American) 62.5; Potassium 3.7 mmol/L (3.5-5.1)
[2019-04-30 06:33] LABS: Albumin Globulin Ratio 0.6 (0.9-2); Bilirubin,Total 0.4 mg/dl (0.2-1); Globulin 4.3 gm/dl (2.5-4.0); Total Protein 6.9 gm/dl (6.4-8.2)
[2019-04-30] MEDS: INSULIN ASPART 100 UNITS/ML 3 ML PEN SC SCH ×4 (09:17→20:27)
[2019-04-30] MEDS: POTASSIUM CHLORIDE 10 MEQ TABCR PO SCH (09:19)
[2019-04-30] MEDS: HEPARIN SOD 5,000 UNIT/0.5 ML VIAL SQ SCH ×2 (09:19→20:24)
[2019-04-30] MEDS: INSULIN GLARGINE SOLOSTAR 100 UNITS/ML 3 ML PEN SQ SCH ×2 (09:20→20:25)
[2019-04-30] MEDS: FUROSEMIDE 40 MG TAB PO SCH (09:21)
[2019-04-30] MEDS: GABAPENTIN 600 MG TAB PO SCH ×2 (09:22→20:15)
[2019-04-30] MEDS: METOPROLOL TARTRATE 100 MG TAB PO SCH ×2 (09:22→20:17)
[2019-04-30] MEDS: predniSONE 20 MG TAB PO SCH (09:23)
[2019-04-30] MEDS: PANTOprazole 40 MG TAB PO SCH (09:24)
--- NOTE | 2019-04-30 10:41 | Pharmacy Report ---
Pharmacy Glycemic Short Note 2 - Date of Service April 30, 2019 - Glycemic Short BSG Results (Last 24 hours): 04/29/19 04/29/19 04/29/19 11:30 16:15 20:11 Glucose POC Glucose 163 H 135 H 135 H 04/30/19 04/30/19 05:17 07:24 Glucose 130 H POC Glucose 122 H OUTPATIENT ANTIDIABETIC REGIMEN: * Lantus 25 units SQ BID * A1c = 6.8 % 04/28/19 - Assessment & Plan ASSESSMENT: 04/29 * Celina received 75 units of insulin yesterday (40 of this being basal) * BSGs have been stable, ranging from 122-163 mg/dL * She remains on prednisone 40 mg daily * Since PM dose of Lantus was reduced, she'll have less basal on board to help with BSGs throughout the day; will therefore tighten CR to assist with prandial coverage -> BSG now 89 mg/dL at lunch so will loosen again * Patient is currently receiving an average of 80 units of insulin per day * 45 units of basal insulin * 37 units of prandial/correctional insulin * BSGs ranging 85- 163 over the past 24hrs * Risk factors for insulin resistance are DECREASING over the past 24hrs * Steroid dosing decreasing - Solumedrol 40 mg q12h -> prednisone 40 mg daily * Anticipating insulin regimen will need decreased for the next 24hrs: * Fasting BSG = 114 mg/dL (down from 199 mg/dL yesterday) and on once daily steroids so effects should dissipate overnight * Postprandials were decreased yesterday so will loosen Novolog parameters 04/28 * 78 year old admitted with acute respiratory failure, hypoxia, CHF, on IV Levaquin and IV Steroids with steroid induced hyperglycemia. * Will continue home dose of basal and tighten CF and CR for steroid effects. * ADA & AACE recommend a goal blood sugar range 140-180 mg/dl for the majority of critically ill & non-critically ill patients. However, more stringent targets may be selected in individual cases. Will utilize more stringent goal of 110-140mg/dl based on patient age & comorbidities. Additionally, tighter glycemic control is warranted to facilitate wound/infection healing. PLAN FOR INPATIENT GLYCEMIC CONTROL: * Basal insulin - no change * Lantus 25 units qAM, 15 units qPM * Bolus insulin - no change * NovoLog per scale ACHS or Q6hrs while NPO * Goal Range: Low 110 mg/dL - High 140 mg/dL * Correction Factor: 15 mg/dL/unit * Nutritional / Prandial insulin per carb ratio of 1 unit per 5 grams CHO consumed
--- NOTE | 2019-04-30 10:48 | Hospitalist Progress Note ---
Date of Service April 30, 2019 Assessment & Plan (1) Acute respiratory failure with hypoxia: 78-year-old female past medical history of asthma, type 2 diabetes, hyperlipidemia, hypertension, diastolic congestive heart failure, who was admitted to the hospital for symptoms of dyspnea and acute CHF exacerbation versus COPD exacerbation. 1. CHF exacerbation Swelling relatively resolved. -Continue home PO Lasix 40mg qAM. -While there may be a mixed picture most likely suffering from acute acute fluid overload CHF exacerbation. -Repeat CXR 04/28/19 showed marked improvement. -Continue to monitor I/O and Weights -Monitor renal function -No concerns noted from speech therapy for aspiration risk. -Patient noted today that she had possibly missed a few days of her home Lasix, possibly prompting this current admission. 2. COPD Was given 125 mg of methylprednisolone IV in the emergency department; have converted this to 40 mg of prednisone QD Exam markedly improved, no wheezing noted today. Patient this AM denies use of O2 at home, currently saturating well on RA. -Continue Atrovent and Xopenex 3. HTN -Continue home Metoprolol 100mg BID -Continue home Lasix 40mg qAM 4. Hypercholesteremia -Continue home Atorvastatin -Continue home Colestipol 5. Depression -Continue home Celexa 6. GERD -Continue home Protonix 7. DM2 with Diabetic Neuropathy -Glycemic Consult -Lantus 25u BID, Novolog -Continue home Neurontin 8. Low Back Pain -Continue home Mobic and Tramadol PRN -[place] PRN -Will have PT evaluate patient inpatient. She does note that she was to start PT at home on 05/02/19. -No concerns from PT/OT about patient returning home. DVT ppx: hep 5000 sq diet: DM, heart healthy Code: full code Dispo: Tele (2) Hyperglycemia: (3) Diastolic congestive heart failure: Admission and Anticipated Discharge Date Admission Date: April 27, 2019 Supervising Physician Co-Signing Physician Notes I saw the patient with the resident physician confirmed cleaning portions of the history and physical examination. At the time of our visit, the patient just returned from some physical therapy. She reports doing well. Her who was also hospitalized is also doing better; she is happy that she was able to visit with him. She generally feels well; no complaints today; denies chest pain, shortness of breath. Blood pressure 139/76, pulse 78, temperature 36.5 C. Pulse oximetry 95% on room air. Upon my examination, the lungs are basically clear; I do not appreciate any wheezing Hemoglobin is 12.4, white blood cell count 9.44 BUN 28, creatinine 0.88. CHF, diastolic, acute on chronic -improved with diuresis COPD, acute exacerbation-improved with IV steroids Continue home dose of Lasix Prednisone 40 mg daily PT/OT consultation Anticipate discharge tomorrow Subjective Patient notes feeling well today. No SOB and improved cough. Review of Systems Constitutional: no fever, no chills and no sweats Eyes: no eye pain Ear, Nose, Mouth, Throat: no hearing loss and no dizziness Respiratory: + cough; no dyspnea, no hemoptysis and no pain on inspiration Cardiovascular: + edema; no chest pain, no dyspnea and no palpitations Gastrointestinal: no abdominal pain, no nausea and no vomiting Genitourinary: no dysuria and no hematuria Musculoskeletal: + back pain Physical Exam Constitutional: well developed, well nourished, + obese and cooperative; no acute distress, not ill appearing and not in distress Eyes: PERRL, conjunctivae normal, anicteric sclerae ENMT: Ears: no hearing impairment Neck: normal visual inspection Respiratory: + cough; no respiratory distress, no labored breathing and does not use accessory muscles Auscultation: lungs clear to auscultation bilaterally and + wheezes (diffuse expiratory wheezes); no crackles, no rales and no rhonchi Cardiovascular: Rate/Rhythm: regular rate and regular rhythm Heart Sounds: no gallop, no murmur and no cardiac rub Vessels: no JVD Extremities: no calf tenderness Chest (Breasts): Additional Comments: R chest wall dressing CDI, minimal tenderness to palpation around dressing site. Gastrointestinal (Abdomen): normal bowel sounds, soft, nontender, no hepatosplenomegaly Results & Data ([facility]) Vital Signs (Past 12 Hours) Vital Signs Temp Pulse Resp BP Pulse Ox 04/30/19 07:43 36.7 C 82 20 121/70 95 04/29/19 23:27 36.5 C 69 18 132/81 95 Laboratory Results Current Inpatient Medications Acetaminophen (Tylenol) 650 mg PO Q4H PRN PRN Reason: Pain or Fever Stop: 05/27/19 21:28 Last Admin: 04/29/19 17:22 Dose: 650 mg Documented by: Hydrocodone Bitart/Acetaminophen ([place] 5/325) 1 tab PO Q4H PRN PRN Reason: Pain Stop: 05/11/19 21:28 Al Hydrox/Mg Hydrox/Simethicone (Maalox) 15 ml PO Q4H PRN PRN Reason: Dyspepsia Stop: 05/27/19 21:28 Albuterol (Ventolin 0.083% 2.5mg/3ml) 2.5 mg INH QID PRN PRN Reason: SHORTNESS OF BREATH Stop: 05/27/19 21:28 Albuterol (Ventolin Hfa) 2 puffs INH QID PRN PRN Reason: Shortness Of Breath Or Wheezin Atorvastatin Calcium (Lipitor) 40 mg PO HS ISAIAS Stop: 05/27/19 21:28 Last Admin: 04/29/19 20:40 Dose: 40 mg Documented by: Citalopram Hydrobromide (Celexa) 40 mg PO QPM ISAIAS Stop: 05/27/19 21:28 Last Admin: 04/29/19 20:40 Dose: 40 mg Documented by: Colestipol HCl (Colestid) 2 gm PO TID@1000,1600,2200 ISAIAS Stop: 05/27/19 21:59 Last Admin: 04/30/19 10:54 Dose: 2 gm Documented by: Dextrose (Dextrose 50%) 25 - 50 ml IV UD PRN; Protocol PRN Reason: Hypoglycemia Protocol Stop: 05/27/19 21:28 Furosemide (Lasix) 40 mg PO QAM ISAIAS Stop: 05/29/19 10:59 Last Admin: 04/30/19 09:21 Dose: 40 mg Documented by: Gabapentin (Neurontin) 1,200 mg PO BID ISAIAS Stop: 05/27/19 21:28 Last Admin: 04/30/19 09:22 Dose: 1,200 mg Documented by: Glucagon (Glucagen) 1 mg SQ UD PRN; Protocol PRN Reason: Hypoglycemia Protocol Stop: 05/27/19 21:28 Glucose (Dex4 Glucose) 4 - 8 tabs PO UD PRN; Protocol PRN Reason: Hypoglycemia Protocol Stop: 05/27/19 21:28 Glucose (Glucose 40%) 15 - 30 gm PO UD PRN; Protocol PRN Reason: Hypoglycemia Protocol Stop: 05/27/19 21:28 Guaifenesin/Dextromethorphan (Robitussin Cough-Chest Dm) 10 ml PO Q6H PRN PRN Reason: Cough Stop: 05/27/19 21:28 Last Admin: 04/28/19 08:29 Dose: 10 ml Documented by: Heparin Sodium (Porcine) (Heparin Sodium (Porcine)) 5,000 units SQ Q12 ISAIAS Stop: 05/28/19 08:59 Last Admin: 04/30/19 09:19 Dose: 5,000 units Documented by: Insulin Aspart (Novolog Flexpen) 0 units SC ACHS [facility]; Protocol Stop: 05/28/19 07:29 Last Admin: 04/30/19 12:52 Dose: 6 units Documented by: Insulin Glargine (Lantus Solostar Pen) 25 units SQ QAM ISAIAS; Protocol Stop: 05/30/19 08:59 Last Admin: 04/30/19 09:20 Dose: 25 units Documented by: Insulin Glargine (Lantus Solostar Pen) 15 units SQ PM ISAIAS; Protocol Stop: 05/29/19 20:59 Last Admin: 04/29/19 21:30 Dose: 15 units Documented by: Ipratropium [place] (Atrovent Nasal [place] 0.06%) 2 sprays TRAVIS TID PRN PRN Reason: SINUS SYMPTOMS Stop: 05/27/19 22:49 Last Admin: 04/28/19 08:28 Dose: 2 sprays Documented by: Ipratropium [place] (Atrovent 0.02% 0.5mg/2.5ml) 0.5 mg INH Q6R PRN PRN Reason: Shortness Of Breath Or Wheezing Stop: 05/28/19 00:59 Levalbuterol HCl (Xopenex 0.63 Mg/3 Ml Neb) 0.63 mg NEB Q6R PRN PRN Reason: Shortness Of Breath Or Wheezing Stop: 05/28/19 00:59 Magnesium Hydroxide (Milk Of Magnesia) 30 ml PO Q12H PRN PRN Reason: Constipation Stop: 05/27/19 21:28 Meloxicam (Mobic) 7.5 mg PO BID PRN PRN Reason: Pain Stop: 05/27/19 21:28 Last Admin: 04/28/19 08:29 Dose: 7.5 mg Documented by: Metoprolol Tartrate (Lopressor) 100 mg PO BID [facility] Stop: 05/27/19 21:28 Last Admin: 04/30/19 09:22 Dose: 100 mg Documented by: Miscellaneous (Carbohydrates For Hypoglycemia) 15 - 30 gm PO UD PRN PRN Reason: Hypoglycemia Protocol Stop: 05/27/19 21:28 Miscellaneous Information (Consult Glycemic Management Pharmacy) 1 ea N/A UD PRN; Protocol PRN Reason: Consult Stop: 05/27/19 23:05 Nystatin (Mycostatin) 1 appln EXT TID PRN PRN Reason: affected area Stop: 05/27/19 21:28 Ondansetron HCl (Zofran) 4 mg IV Q6H PRN PRN Reason: Nausea Stop: 05/27/19 21:28 Pantoprazole Sodium (Protonix) 40 mg PO QAM [facility] Stop: 05/28/19 08:59 Last Admin: 04/30/19 09:24 Dose: 40 mg Documented by: Polyethylene Glycol (Miralax Powder Packet) 17 gm PO DAILY PRN PRN Reason: Constipation Stop: 05/27/19 21:28 Potassium Chloride (Klor-Con M10) 10 meq PO QAM [facility] Stop: 05/28/19 08:59 Last Admin: 04/30/19 09:19 Dose: 10 meq Documented by: Prednisone (Prednisone) 40 mg PO DAILY [facility] Stop: 05/29/19 08:59 Last Admin: 04/30/19 09:23 Dose: 40 mg Documented by: Tramadol HCl (Ultram) 50 mg PO Q6 PRN PRN Reason: Pain - Dr. Leary ALKA# [id number] Stop: 05/27/19 21:28 Last Admin: 04/29/19 20:39 Dose: 50 mg Documented by: Tramadol HCl (Ultram) 50 mg PO ONCE [facility] Stop: 05/30/19 19:59 Resident Activity Tracking Resident Involvement: Resident Care Provided Care Provided: Adult Hospital Medicine
[2019-04-30] MEDS: COLESTIPOL HCL 1 GM TAB PO SCH ×3 (10:54→22:24)
[2019-04-30] MEDS ORDERED: TRAMADOL HCL 50 MG TABLET PO ONE (20:00)
[2019-04-30] MEDS: CITALOPRAM 40 MG TAB PO SCH (20:15)
[2019-04-30] MEDS: ATORVASTATIN 40 MG TAB PO SCH (20:16)
[2019-05-01 06:50] LABS: Basophils # (auto) 0.01 K/uL (0-0.2); Basophils % (auto) 0.1 %; Hematocrit (blood only) 42.2 % (37-47); Hemoglobin 13.2 g/dL (12.0-16.0); Immature Granulocytes # (auto) 0.01 K/uL (0.00-0.02); Immature Granulocytes % (auto) 0.1 %; Lymphocytes # (auto) 1.96 K/uL (1.2-3.4); Mean Corpuscular Hemoglobin 26.2 pg (25-34); Mean Corpuscular Hgb Conc 31.3 g/dL (32-36); Mean Corpuscular Volume 83.7 fL (80-100); Mean Platelet Volume 9.8 fL (7.4-10.4); Monocytes # (auto) 0.78 K/uL (0.11-0.59); Monocytes % (auto) 9.2 %; Neutrophils # (auto) 5.76 K/uL (1.4-6.5); Neutrophils % (auto) 67.6 %; Platelet Count 261 K/uL (130-400); RDW Standard Deviation 45.8 fL (36.4-46.3); Red Blood Count 5.04 M/uL (4.2-5.4); White Blood Count 8.52 K/uL (4.8-10.8)
[2019-05-01 07:27] LABS: Albumin Level 2.7 gm/dl (3.4-5.0); BUN Creatinine Ratio 32.3 (10-20); Calcium 8.4 mg/dl (8.5-10.1); Creatinine Clr Calc Pharmacy 67.5 ml/min; Est GFR (African American) 76.6; Est GFR (Non-African American) 66.1; Potassium 3.7 mmol/L (3.5-5.1)
[2019-05-01 07:29] LABS: Albumin Globulin Ratio 0.6 (0.9-2); Bilirubin,Total 0.4 mg/dl (0.2-1); Globulin 4.3 gm/dl (2.5-4.0)
[2019-05-01] MEDS: INSULIN ASPART 100 UNITS/ML 3 ML PEN SC SCH ×2 (08:55→13:11)
[2019-05-01] MEDS: HEPARIN SOD 5,000 UNIT/0.5 ML VIAL SQ SCH (08:57)
[2019-05-01] MEDS: GABAPENTIN 600 MG TAB PO SCH (08:57)
[2019-05-01] MEDS: INSULIN GLARGINE SOLOSTAR 100 UNITS/ML 3 ML PEN SQ SCH (08:57)
[2019-05-01] MEDS: PANTOprazole 40 MG TAB PO SCH (08:58)
[2019-05-01] MEDS: METOPROLOL TARTRATE 100 MG TAB PO SCH (08:58)
[2019-05-01] MEDS: FUROSEMIDE 40 MG TAB PO SCH (08:58)
[2019-05-01] MEDS: predniSONE 20 MG TAB PO SCH (08:58)
[2019-05-01] MEDS: POTASSIUM CHLORIDE 10 MEQ TABCR PO SCH (08:58)
--- NOTE | 2019-05-01 10:59 | Pharmacy Report ---
Glycemic Control Progress Note - Date of Service May 01, 2019 - Scope Glycemic Pharmacist consulted for glycemic control to write orders per [facility] inpatient glycemic control protocol. - Objective Accuchecks BSG(last 24 hours):: 04/30/19 04/30/19 04/30/19 11:31 16:44 20:03 Glucose POC Glucose 89 93 177 H 05/01/19 05/01/19 06:24 07:58 Glucose 114 H POC Glucose 128 H HbA1c:: Hemoglobin A1c 6.8 % (4.5-5.6) H 04/28/19 05:54 - Recent Pertinent Medications The patient is currently receiving: * Basal insulin: Lantus 25 units in the morning and 15 units in the evening * Correctional Insulin: Novolog Correction per scale ACHS Goal Range: Low 110 mg/dL - High 140 mg/dL Correction Factor: 15 mg/dL/unit * Prandial insulin: Per carb ratio of 1 unit per 5 grams CHO consumed - Outpatient Anti-Diabetic Meds Lantus 25 units SQ BID - Assessment & Plan ASSESSMENT: * See progress note from 04/28/2019 for more background info, in short: * Pt receiving SQ basal bolus insulin regimen for hyperglycemia secondary to baseline DM (outpatient regimen on hold) and prednisone 40 mg PO daily (last dose today). * Patient is currently receiving an average of 69 units of insulin per day * 40 units of basal insulin * 29 units of prandial/correctional insulin * BSGs ranging 89 - 177 mg/dl over the past 24hrs * Changes needed to insulin regimen: * AM Fasting BSG = 128 mg/dl. This is in goal range for patient based on inpatient targets and co-morbidities. The patient's current regimen is very basal heavy even with steroids. Since steroids d/c'ed, eliminate evening dose of Lantus for now. Suspect true daily dose around 50 units (home regimen) so will start there. * Post-prandial BSGs are lower at lunch and dinner then increased at bedtime yesterday due to prednisone. Continue current regimen. * Total daily dose = 50 units. Working towards a more 50/50 basal/bolus split. PLAN FOR INPATIENT GLYCEMIC CONTROL: * Decreasing Lantus 25 units SQ qAM * Continuing correction factor of 15 mg/dl/unit * Continuing carb ratio of 1 unit per 5 grams CHO consumed * Continuing goal range of Low 110 mg/dL - High 140 mg/dL RECOMMENDATIONS FOR DISCHARGE: * Patient's HbA1C well controlled. Recommend continuing current regimen as long as she does not have hypoglycemia. Thank you.
[2019-05-01] MEDS: COLESTIPOL HCL 1 GM TAB PO SCH (11:02)
--- NOTE | 2019-05-01 13:49 | Discharge Summary ---
Date of Service May 01, 2019 Admission HPI Per Admitting Provider The patient is a 78 years old female with past medical history of diabetes mellitus type 2, hypertension, hypercholesterolemia, and diastolic congestive heart failure, morbid obesity, who was brought by her daughter to the emergency room with a complaint that patient is very short of breath and that she gained recently some weight of 10+ pounds. Patient stayed with her and most of the time he takes care of her. Per patient's daughter history patient is dependent on caregiver and they have caregiver for only several hours during the week. Patient is poor historian and it is difficult to review systems with her. Labs are reviewed which shows WBCs of 10.86, hemoglobin 13.3, hematocrit 43.7, platelets 283, PT 10.6, INR 1, APTT 27.9, VBG 7.37, PCO2 46, PO2 31, HCO3 26, VBG O2 saturation less than 60, base excess 0.2, sodium 140, potassium 3.9, chloride 110, carbon dioxide 27, anion gap 3, BUN 15, creatinine 0.87, GFR 63.4, glucose 186, lactate 1.6, calcium 8.4, phosphorus 2, magnesium 2.2, total bi lirubin 0.3, AST 18, ALT 17, alkaline phosphatase of 58, troponin 0.015, BNP 2 0 24, total protein 7.9, albumin 3. Urine clear with trace blood. Chest x-ray shows congestive heart failure and or pulmonary edema. Decision was made to admit patient to PCU on telemetry for acute exacerbation of diastolic congestive heart failure and pulmonary edema with volume overload. Admission Exam Per Admitting Provider Constitutional: WD/WN, vitals as above well developed, + ill appearing and + morbidly obese Eyes: PERRL, conjunctivae normal, anicteric sclerae ENMT: external ear and nose normal, oropharynx normal Neck: trachea midline, no thyromegaly Respiratory: Auscultation: + crackles and + wheezes Cardiovascular: Heart Sounds: normal S1 and normal S2 Palpation: + palpable S3 Vessels: + JVD and dorsalis pedis pulses present Extremities: + pedal edema Gastrointestinal (Abdomen): normal bowel sounds, soft, nontender, no hepatosplenomegaly Musculoskeletal: no cyanosis or clubbing, extremities motor strength 5/5 Skin: no rashes, warm and dry Neurologic: patellar DTR's 2+ bilat, sensation intact Psychiatric: A+Ox3, euthymic affect Lymphatic: no cervical or axillary lymphadenopathy Principal Diagnosis CHF exacerbation Discharge Exam Constitutional cooperative; no acute distress and not ill appearing Neck normal visual inspection Respiratory normal respiratory effort and able to speak in complete sentences; no respiratory distress, no labored breathing, no retractions, no cough and no audible wheezes Auscultation: lungs clear to auscultation bilaterally; no crackles, no rales, no rhonchi and no wheezes Cardiovascular Rate/Rhythm: regular rate and regular rhythm Heart Sounds: normal S1 and normal S2; no gallop, no murmur and no cardiac rub Vessels: posterior tibial pulses present Extremities: no pedal edema and no edema Gastrointestinal (Abdomen) Inspection/Auscultation: abdomen normal to inspection and normal bowel sounds; abdomen not distended Percussion/Palpation: abdomen soft; abdomen nontender, no guarding, abdomen not rigid and no abdominal mass Discharge Data Allergies Allergy/AdvReac Type Severity Reaction Status Date / Time bee venom protein (honey bee) Allergy Severe SWELLING Verified 04/27/19 18:50 SOB iodine Allergy Severe RASH-PT Verified 04/27/19 18:50 DENIES ANY ISSUE codeine Allergy Intermediate SWELLING Verified 04/27/19 18:50 metformin Allergy Intermediate Diarrhea Verified 04/27/19 18:50 Penicillins Allergy Intermediate RASH/HIVES Verified 04/27/19 18:50 procaine Allergy Mild NOVOCAINE-R Verified 04/27/19 18:50 AKILAH Cephalosporins Allergy Unknown UNKNOWN Verified 04/27/19 18:50 clarithromycin Allergy Unknown Verified 04/27/19 18:50 Consultations 04/28/19 12:16 Consult Case Management - Discharge Planning Routine Hospital Course (1) Acute respiratory failure with hypoxia: 78-year-old female past medical history of asthma, type 2 diabetes, hyperlipidemia, hypertension, diastolic congestive heart failure, who was admitted to the hospital for symptoms of dyspnea and acute CHF exacerbation versus COPD exacerbation. 1. CHF exacerbation: resolved after short course of IV lasix and return to PO home lasix dose. Subjective improvement, clinically less short of breath as well as improved on CXR. 2. COPD: some element of wheezing on admission; received steroids IV during admission for treatment of COPD exacerbation given patient's frequent coughing. Transitioned to PO steroid taper at discharge. Mobility: evaluated by PT and OT during admission, recommended home health and home PT. All other medical conditions maintained per home regimens. (2) Hyperglycemia: (3) Diastolic congestive heart failure: Total Time Total Time Spent Total Time Spent (In Minutes): 35 Discharge Plan Discharge Items Patient Disposition: Home - Home Health Services Reason For Visit: ACUTE RESPIRATORY FAILURE Discharge Diagnosis: CHF exacerbation Activity: Resume your previous activity Non-emergency contact: Primary Care Provider and Elevator Constructor Supervisor Call non-emergency contact if: you have any medication questions and your symptoms worsen Follow-up/Referrals: Gideon Garcia PA-C [Physician Research And Development Researcher] - Paul Leary III, MD [Primary Care Provider] - 05/08/19 1:50 pm (If you need to change this appointment, please call [phone].) Diet: Heart Healthy Addtl Attending Provider Instructions: You were evaluated in the hospital for an acute heart failure exacerbation causing your new onset shortness of breath. You were given IV medication to help pull off the fluid and responded well. At home you will be taking your previous dose of lasix by mouth. It is important that you weight yourself daily at home to monitor if you are ret aining fluid. Maintain a low salt diet to avoid fluid build up. If you experience shortness of breath, weight gain greater than 3 lbs or 1-2 kgs, talk to your customer experience intern or primary care provider or come to the emergency department if you aren't able to see them. Your home physical therapy will be very important to help get you back to baseline health status. Follow up with your customer experience intern and primary care provider in the next 1-2 weeks to ensure continuining improvement. Pending Studies at Discharge: No Stand-Alone Forms: [facility] CHF Dc Instructions, [facility], Smoking Cessation Medications and DC Order Prescriptions: New prednisone 10 mg tablet 10 mg PO DAILY Qty: 6 RF: 0 Continued atorvastatin [Lipitor] 40 mg tablet 40 mg PO HS Qty: 90 RF: 3 ipratropium bromide 0.03 % spray,non-aerosol 2 sprays INTNAS TID PRN (Reason: allergy symptoms) Qty: 30 RF: 2 Lantus U-100 Insulin 100 unit/mL solution 25 units subcut BID Qty: 20 RF: 5 meloxicam 7.5 mg tablet 7.5 mg PO BID PRN (Reason: Pain) Qty: 60 RF: 5 (DME) insulin syringe-needle U-100 [BD Insulin Syringe Ultra-Fine] 0.3 mL 31 gauge x 5/16" syringe See Rx Instructions .ROUTE .MEDSUPPLY Qty: 100 RF: 3 gabapentin [Neurontin] 600 mg tablet 1,200 mg PO BID Qty: 120 RF: 5 nystatin [Nystop] 100,000 unit/gram powder 1 applic topical TID PRN (Reason: affected area) Qty: 60 RF: 5 albuterol sulfate [ProAir HFA] 90 mcg/actuation HFA aerosol inhaler 2 puff INHALATION QID PRN (Reason: Shortness Of Breath Or Wheezing) Qty: 8 RF: 4 albuterol sulfate 2.5 mg /3 mL (0.083 %) solution for nebulization 2.5 mg INH .COMPLEX Qty: 180 RF: 5 colestipol 1 gram tablet 2 gm PO TID Qty: 180 RF: 3 (DME) Lift Chair Misc See Rx Instructions .ROUTE .MEDSUPPLY Qty: 1 RF: 0 furosemide 40 mg tablet 40 mg PO QAM RF: 0 citalopram [Celexa] 40 mg tablet 40 mg PO QPM RF: 0 potassium chloride [Klor-Con 10] 10 mEq tablet extended release 10 meq PO QAM RF: 0 pantoprazole [Protonix] 40 mg tablet,delayed release (DR/EC) 40 mg PO QAM RF: 0 Discontinued tramadol [Ultram] 50 mg tablet 50 - 100 mg PO Q6 PRN (Reason: Pain - Dr. Leary ALKA# [id number]) Qty: 30 RF: 0 doxycycline hyclate 100 mg capsule 100 mg PO BID Qty: 20 RF: 0 tramadol [Ultram] 50 mg tablet 50 - 100 mg PO Q6 PRN (Reason: Pain - Dr. Leary [facility]KA# [id number]) Qty: 30 RF: 0 No Action tramadol [Ultram] 50 mg tablet 50 - 100 mg PO Q6 PRN (Reason: Pain - Dr. Sapphire RUCKER# [id number]) Qty: 30 RF: 0 metoprolol tartrate 100 mg tablet 50 mg PO BID Qty: 90 RF: 1 aspirin [Adult Aspirin Regimen] 81 mg tablet,delayed release (DR/EC) 81 mg PO DAILY RF: 0 metoclopramide HCl [Reglan] 10 mg tablet 10 mg PO QID PRN (Reason: nausea and vomiting) RF: 0 budesonide-formoterol [Symbicort] 80-4.5 mcg/actuation HFA aerosol inhaler 2 puffs INH BID RF: 0 Discharge Orders: Discharge Order (Routine); Ordered 05/01/19 Ordered By: Azucena Fritz Admission Data Admit Date/Time: 04/27/19 20:00 Attending Provider: Bret Baker Admit Provider: Margarita Upton Primary Care Provider: Paul Leary III Other Providers: Azucena Fritz ; [facility] Other Interventions: Discharge Summary Assessment (RN) Last Done: 05/01/19 12:30 DC Date/Time DO NOT enter until pt leaves facility: 05/01/19 13:27 Supervising Physician Co-Signing Physician Notes I saw the patient with the resident physician confirmed cleaning portions of the history and physical examination. She generally feels well; no complaints today; denies chest pain, shortness of breath. CHF, diastolic, acute on chronic -improved with diuresis COPD, acute exacerbation-improved with IV steroids Continue home dose of Lasix Prednisone 40 mg daily and taper Ok to discharge patient. Resident Activity Tracking Resident Involvement: Resident Care Provided Care Provided: Adult Hospital Medicine
--- NOTE | 2019-05-08 00:10 | Billing Data ---
Date of Service May 01, 2019 Coding Level of Care Code D/C Day Management >30 mins
== END 2019-05-01 13:27 | disposition home health service (06) | DRG 291 ==
LOC: ED 17:13 → 2E 20:00 → SUATTDRO 20:00 → 2E 20:52 → 4W 04-29 18:04

== ENCOUNTER 2020-06-23 20:09 | Inpatient (IN) ==
[2020-06-23 20:57] LABS: Basophils # (auto) 0.01 K/uL (0-0.2); Basophils % (auto) 0.2 %; Eosinophils # (auto) 0.05 K/uL (0-0.5); Eosinophils % (auto) 1.1 %; Hematocrit (blood only) 42.9 % (37-47); Hemoglobin 13.6 g/dL (12.0-16.0); Immature Granulocytes # (auto) 0.01 K/uL (0.00-0.02); Immature Granulocytes % (auto) 0.2 %; Lymphocytes # (auto) 1.39 K/uL (1.2-3.4); Mean Corpuscular Hemoglobin 28.3 pg (25-34); Mean Corpuscular Hgb Conc 31.7 g/dL (32-36); Mean Corpuscular Volume 89.2 fL (80-100); Mean Platelet Volume 10.2 fL (7.4-10.4); Monocytes # (auto) 0.61 K/uL (0.11-0.59); Monocytes % (auto) 13.2 %; Neutrophils # (auto) 2.56 K/uL (1.4-6.5); Neutrophils % (auto) 55.3 %; Platelet Count 192 K/uL (130-400); RDW Coefficient of Variation 14.4 % (11.5-14.5); RDW Standard Deviation 47.5 fL (36.4-46.3); Red Blood Count 4.81 M/uL (4.2-5.4); White Blood Count 4.63 K/uL (4.8-10.8)
[2020-06-23] MEDS ORDERED: diphenhydrAMINE 50 MG/ML VIAL IV STA (20:58)
[2020-06-23] MEDS ORDERED: methylPREDNISolone 125 MG/2 ML VIAL IV STA (20:58)
[2020-06-23 21:22] LABS: Alanine Aminotransferase 24 U/L (12-78); Aspartate Aminotransferase 26 U/L (15-37); BUN Creatinine Ratio 16.4 (10-20); Blood Urea Nitrogen 15 mg/dl (7-18); Carbon Dioxide 23 mmol/L (21-32); Chloride 111 mmol/L (98-107); Est GFR (African American) 66.8; Est GFR (Non-African American) 57.6; Glucose 208 mg/dl (70-99); Magnesium 2.1 mg/dl (1.8-2.4); Sodium 142 mmol/L (136-145)
[2020-06-23 21:27] LABS: Albumin Globulin Ratio 0.7 (0.9-2); Alkaline Phosphatase 143 U/L (45-117); Bilirubin,Total 0.3 mg/dl (0.2-1); Globulin 4.2 gm/dl (2.5-4.0); Total Protein 7.2 gm/dl (6.4-8.2); Troponin I < 0.015 ng/ml (0-0.045)
[2020-06-23 22:00] LABS: Base Excess VBG -0.1 mEq/L; Oxygen Saturation VBG 66.3 %; pH VBG 7.4 (7.36-7.41)
[2020-06-23] MEDS ORDERED: OPTIRAY 350 500ml IV ONE (22:16)
[2020-06-23 22:17] LABS: Partial Thromboplastin Ratio 1.1; Partial Thromboplastin Time 28.6 Seconds (21.0-31.0); Prothrombin Time 9.7 Seconds (9.0-12.0)
[2020-06-23] MEDS ORDERED: ACETAMINOPHEN 500 MG TAB PO STA (22:41)
[2020-06-23 23:00] LABS: Appearance Urine Cloudy (Clear); Bilirubin Urine Negative (Negative); Blood Urine Negative (Negative); Color Urine Yellow; Epithelial Cell Urine Auto >30 /lpf (0-5); Glucose Urine UA Trace (Negative); Ketones Urine Trace (Negative); Leukocyte Esterase Urine Negative (Negative); Nitrite Urine Negative (Negative); Protein Urine Negative (Negative); Specific Gravity Urine 1.028 (1.000-1.030); Urobilinogen Urine Negative (Negative)
[2020-06-23 23:13] LABS: Bacteria Urine Automated 1+ (Negative); RBC Urine Automated 0-4 /hpf (0-4)
--- NOTE | 2020-06-23 23:14 | History & Physical Report ---
Date of Service June 23, 2020 Assessment & Plan (1) COVID-19: 80yo female presenting with Covid-19. Patient is quite stable at present. She is saturating well on room air. No distress. Unfortunately her is currently admitted with Covid-19 infection and her maintenance mechanic 2nd shift has Covid-19 as well. She is unable to care for herself at home. -Admit to medical -Monitor SpO2 per unit standard. Supplemental O2 if needed. If patient becomes hypoxic with saturations <94% on room air will initiate treatment with Dexamethasone, possible Remdesivir -Albuterol QID scheduled HFA, QID PRN nebs -Tylenol PRN pain or fever -Lovenox 40mg BID Present on Admission?: Yes (2) Hypertension: Blood pressure stable -Continue metoprolol -Continue to monitor Present on Admission?: Yes (3) Depression: Chronic -Continue Citalopram Present on Admission?: Yes (4) COPD (chronic obstructive pulmonary disease): Chronic. Patient reports some mild SOB. No wheezing present on exam -Continue Fluticasone/Vilanterol -Continue Albuterol Present on Admission?: Yes (5) Diastolic congestive heart failure: Patient appear to be well compensated. -Continue Lasix 40mg po qAM -Cautious use of fluids Present on Admission?: Yes (6) Hypercholesteremia: Chronic -Continue Atorvastatin Present on Admission?: Yes (7) Diabetes mellitus type 2, insulin dependent: Blood sugar elevated at 208 today. Patient was given steroids in the ER so may have some higher blood sugars -Continue Lantus 30u BID -ISS -Check A1C in AM -Continue Gabapentin for neuropathy Present on Admission?: Yes (8) Mild CAD: Chronic. Stable. No chest pain at present. Troponin is unremarkable -Continue ASA 81mg po daily -Continue metoprolol -Continue Atorvastatin Present on Admission?: Yes (9) GERD (gastroesophageal reflux disease): Chronic. Well controlled -Continue Protonix 40mg po daily F/E/N - Heplock. Monitor electrolytes and replete as needed. AHA/CC diet as tolerated Ppx - Lovenox 40 BID Code- DNR/DNI per discussion with patient Dispo - Admit to medical Present on Admission?: Yes History of Present Illness Chief Complaint: Covid-19 Primary Care Provider: Paul Mcbride is an 80yo C female with history of AF, DM, GERD and CAD presenting with Covid-19 infection. Patient states that she has felt fatigued and weak over the last 2-3 days. She has had a slight cough and shortness of breath. She lives with her and has a maintenance mechanic 2nd shift come into the home to assist. The maintenance mechanic 2nd shift recently tested positive for Covid-19 infection as well and her is being admitted presently with Covid-19 infection as well. Patient requires a lot of assistance at home with ambulation, meals and medications. She is unable to care for herself alone in the home. On arrival to the ER patient febrile at 38.1, tachypneic with adequate oxygenation on room air. Saturations 94-97% ER Course: Tylenol 1000mg, Benadryl 25mg IV, Solumedrol 125mg IV Allergies Allergy/AdvReac Type Severity Reaction Status Date / Time bee venom protein (honey bee) Allergy Severe SWELLING Verified 06/23/20 21:36 SOB iodine Allergy Severe RASH; Verified 06/23/20 21:36 SHORTNESS OF BREATH codeine Allergy Intermediate SWELLING Verified 06/23/20 21:36 metformin Allergy Intermediate Diarrhea Verified 06/23/20 21:36 Penicillins Allergy Intermediate RASH/HIVES Verified 06/23/20 21:36 procaine Allergy Mild NOVOCAINE-R Verified 06/23/20 21:36 AKILAH Cephalosporins Allergy Unknown UNKNOWN Verified 06/23/20 21:36 clarithromycin Allergy Unknown Verified 06/23/20 21:36 Home Medications Medication Instructions Recorded Confirmed Type ipratropium bromide 21 mcg (0.03 2 sprays INTNAS TID PRN #30 ml 10/28/18 06/23/20 Rx %) nasal spray Lift Chair #1 ea 03/09/19 05/29/20 Rx aspirin 81 mg tablet,delayed 81 mg PO DAILY 05/02/19 06/23/20 History release albuterol sulfate 90 mcg/actuation 2 puffs INH QID PRN #8 gm 06/06/19 06/23/20 Rx aerosol inhaler pantoprazole 40 mg tablet,delayed 40 mg PO QAM #90 tab 06/06/19 06/23/20 Rx release tramadol 50 mg tablet 50 - 100 mg PO Q6 PRN #30 tab 06/26/19 06/23/20 Rx metoprolol succinate 50 mg 50 mg PO DAILY #60 tab 07/04/19 06/23/20 Rx tablet,extended release 24 hr nystatin 100,000 unit/gram topical 1 appln TOP BID 21 Days #30 gm 08/11/19 06/23/20 Rx powder nystatin 100,000 unit/gram topical 1 appln TOP BID #60 gm 08/28/19 06/23/20 Rx cream gabapentin 600 mg tablet 1,200 mg PO BID #360 tab 08/31/19 06/23/20 Rx potassium chloride 10 mEq 10 meq PO QAM #90 tab 08/31/19 06/23/20 Rx tablet,extended release atorvastatin 40 mg tablet 40 mg PO HS #90 tab 10/12/19 06/23/20 Rx furosemide 40 mg tablet 40 mg PO QAM #90 tab 10/16/19 06/23/20 Rx insulin glargine 100 unit/mL 30 unit SUBCUT BID #20 ml 11/15/19 06/23/20 Rx subcutaneous solution lancets 30 gauge #100 ea 11/15/19 05/29/20 Rx meloxicam 7.5 mg tablet 7.5 mg PO BID PRN #60 tab 12/19/19 06/23/20 Rx cyclobenzaprine 5 mg tablet 5 mg PO TID PRN #30 tab 12/27/19 06/23/20 Rx docusate sodium 100 mg capsule 200 mg PO DAILY #60 cap 12/27/19 06/23/20 Rx fluticasone furoate 100 1 inh INH DAILY #28 ea 01/01/20 06/23/20 Rx mcg-vilanterol 25 mcg/dose inhalation powder insulin syringe-needle U-100 0.3 #100 ea 01/29/20 05/29/20 Rx mL 31 gauge x 5/16" metoclopramide HCl 10 mg tablet 10 mg PO QID PRN #120 tab 03/04/20 06/23/20 Rx flash glucose sensor #1 ea 03/14/20 05/29/20 Rx flash glucose scanning reader #1 ea 03/26/20 05/29/20 Rx nitroglycerin 0.4 mg sublingual 0.4 mg SUBLINGUAL Q5M PRN #25 tab 05/16/20 06/23/20 Rx tablet citalopram 40 mg tablet 40 mg PO QPM #90 tab 05/20/20 06/23/20 Rx fluticasone propionate 50 2 spray INTRANASAL Q12H #15.8 ml 05/31/20 06/23/20 Rx mcg/actuation nasal spray,suspension albuterol sulfate 2.5 mg INH QID PRN 06/23/20 06/23/20 History colestipol 2 g PO TID 06/23/20 06/23/20 History Past Med/Surg History Medical History Anxiety Asthma RARELY NEEDS PRN INH Atrial fibrillation Paroxysmal, not on anticoagulation. Per cardio 12/25/15, "since she has not had a paroxysmal for many years, no therapy will be initiated today. Given her elevated CHADSVASC score, though, would recommend anticoagulation therapy if she were to develop any recurrent episodes of A. fib in the future." Chronic back pain Chronic chest pain Has been evaluated by cardio, ruled to be non-cardiac in origin. Delayed effect of radiation Depression Diabetes mellitus, type 2 IDDM. HgA1C 6.6% 05/03/18 Diverticular disease GERD (gastroesophageal reflux disease) Hiatal hernia History of right breast cancer S/P RT MASTECTOMY, + CHEMO/RADIATION Hyperlipidemia Hypertension Migraine Morbid obesity Myocardial Infarction > 20 YEARS AGO Nonobstructive atherosclerosis of coronary artery Per cath 2008 Osteoarthritis Surgical History Fusion of spine History of appendectomy History of back surgery HARDWARE PRESENT History of bilateral tubal ligation History of breast biopsy History of cardiac cath 2008 [facility] for chest pain. Non-obstructive CAD. "Non-cardiac chest pain." History of carpal tunnel release BL History of cataract surgery History of cholecystectomy History of dilatation and curettage History of hysterectomy History of partial gastrectomy History of right mastectomy NO BP/IV RUE History of tonsillectomy History of tooth extraction History of total knee replacement BL History of total shoulder replacement RT Family History Sister Family history of diabetes mellitus Breast cancer Daughter Family history of reaction to anesthesia SLOW TO WAKE UP Grandfather (Maternal) Myocardial infarction Denies family history of Ovarian cancer Prostate cancer Colorectal cancer Social History Smoking Status: Never smoker Second Hand Exposure: No; Hx Alcohol Use: No Hx Substance Use: No Preferred Language: Italian Communication Ability: Effective Visual Impairment: No Limitations Hearing Ability: Normal Digital Project Coordinator Required: No Beliefs That Will Affect Care: None marital status: Current Living Situation: Spouse 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[employer] Feels Safe at Home: Yes Childhood Exposure to Second-Hand Smoke: No Dental Care, Regularly: No Physical Activity Frequency: Does not Exercise Seatbelt Use: always Sunscreen Use: No Assistive Devices: Walker Review of Systems Review of Systems: All systems reviewed & are unremarkable except as noted in HPI & below +weakness, fatigue, abdominal pain, cough and SOB +Fever Physical Exam Physical Exam: General: patient resting comfortably, NAD, non-toxic in appearance, AA&O x 4 Skin: warm, dry, intact, +candid under both breasts HEENT: NC/AT, PERRL, EOMI, anicteric sclera, conjunctiva without injection, external ear normal to inspection and nontender, nares patent, dry mucus me mbranes, dentition intact, no oropharyngeal lesions, neck supple, trachea midline, no LAD, no thyromegaly, no JVD Heart: +S1/S2, regular, no m/r/g Lungs: equal air entry bilaterally, no rales/rhonchi/wheezes Abd: +BS, soft, NT/ND, no masses/organomegaly/ascites Ext: warm, 2+ pulses in UE/LE bilaterally, no clubbing/cyanosis or edema Neuro: nonfocal, patient AA&O x 4, speech intact, no facial droop, moving all extremities on command with equal strength 5/5 Results & Data Results & Data ([facility]) Vital Signs (Past 12 Hours) Vital Signs Temp Pulse Resp BP Pulse Ox 06/23/20 22:30 89 28 H 97 06/23/20 22:25 89 21 93 06/23/20 22:02 83 25 H 95 06/23/20 22:01 79 26 H 147/75 H 94 06/23/20 22:00 77 24 95 06/23/20 21:50 79 27 H 95 06/23/20 21:46 77 25 H 151/75 H 95 06/23/20 21:40 81 33 H 95 06/23/20 21:31 83 31 H 95 06/23/20 21:30 78 29 H 157/90 H 94 06/23/20 21:29 78 29 H 94 06/23/20 21:16 80 30 H 143/47 H 95 06/23/20 20:38 96 06/23/20 20:15 38.1 C H 80 20 118/93 96 Laboratory Results Lab Results 06/23/20 06/23/20 06/23/20 Range/Units 20:40 20:40 20:40 WBC 4.63 L (4.8-10.8) K/uL RBC 4.81 (4.2-5.4) M/uL Hgb 13.6 (12.0-16.0) g/dL Hct 42.9 (37-47) % MCV 89.2 (80-100) fL MCH 28.3 (25-34) pg MCHC 31.7 L (32-36) g/dL RDW Std Deviation 47.5 H (36.4-46.3) fL RDW Coeff of Erin 14.4 (11.5-14.5) % Plt Count 192 (130-400) K/uL MPV 10.2 (7.4-10.4) fL Immature Gran % (Auto) 0.2 % Neut % (Auto) 55.3 % Lymph % (Auto) 30.0 % [place] % (Auto) 13.2 % Eos % (Auto) 1.1 % Baso % (Auto) 0.2 % Neut # (Auto) 2.56 (1.4-6.5) K/uL Lymph # (Auto) 1.39 (1.2-3.4) K/uL [place] # (Auto) 0.61 H (0.11-0.59) K/uL Eos # (Auto) 0.05 (0-0.5) K/uL Baso # (Auto) 0.01 (0-0.2) K/uL Immature Gran # (Auto) 0.01 (0.00-0.02) K/uL PT INR APTT PTT Ratio VBG pH (7.36-7.41) VBG pCO2 (38-50) mmHg VBG pO2 mmHg VBG HCO3 mmol/L VBG O2 Saturation % VBG Base Excess mEq/L Barometric Pressure mm/Hg Sodium 142 (136-145) mmol/L Potassium 4.0 (3.5-5.1) mmol/L Chloride 111 H (98-107) mmol/L Carbon Dioxide 23 (21-32) mmol/L Anion Gap 8.0 (3-11) BUN 15 (7-18) mg/dl Creatinine 0.93 (0.6-1.2) mg/dl Est Cr Clr Drug Dosing Not Reportable Est GFR ( Amer) 66.8 Est GFR (Non-Af Amer) 57.6 BUN/Creatinine Ratio 16.4 (10-20) Glucose 208 H (70-99) mg/dl Lactate (0.4-2.0) mmol/L Calcium 8.0 L (8.5-10.1) mg/dl Magnesium 2.1 (1.8-2.4) mg/dl Total Bilirubin 0.3 (0.2-1) mg/dl AST 26 (15-37) U/L ALT 24 (12-78) U/L Alkaline Phosphatase 143 H (45-117) U/L Troponin I < 0.015 (0-0.045) ng/ml Total Protein 7.2 (6.4-8.2) gm/dl Albumin 3.0 L (3.4-5.0) gm/dl Globulin 4.2 H (2.5-4.0) gm/dl Albumin/Globulin Ratio 0.7 L (0.9-2) Procalcitonin < 0.05 (0-0.5) ng/ml Urine Color Urine Appearance (Clear) Urine pH (4.5-7.5) Ur Specific [place] (1.000-1.030) Urine Protein (Negative) Urine Glucose (UA) (Negative) Urine Ketones (Negative) Urine Blood (Negative) Urine Nitrite (Negative) Urine Bilirubin (Negative) Urine Urobilinogen (Negative) Ur Leukocyte Esterase (Negative) Urine WBC (Auto) (0-5) /hpf Urine RBC (Auto) (0-4) /hpf U Hyaline Cast (Auto) (0-5) /lpf U Epithel Cells (Auto) (0-5) /lpf Urine Bacteria (Auto) (Negative) 06/23/20 06/23/20 06/23/20 Range/Units 20:40 21:32 21:48 WBC (4.8-10.8) K/uL RBC (4.2-5.4) M/uL Hgb (12.0-16.0) g/dL Hct (37-47) % MCV (80-100) fL MCH (25-34) pg MCHC (32-36) g/dL RDW Std Deviation (36.4-46.3) fL RDW Coeff of Erin (11.5-14.5) % Plt Count (130-400) K/uL MPV (7.4-10.4) fL Immature Gran % (Auto) % Neut % (Auto) % Lymph % (Auto) % [place] % (Auto) % Eos % (Auto) % Baso % (Auto) % Neut # (Auto) (1.4-6.5) K/uL Lymph # (Auto) (1.2-3.4) K/uL [place] # (Auto) (0.11-0.59) K/uL Eos # (Auto) (0-0.5) K/uL Baso # (Auto) (0-0.2) K/uL Immature Gran # (Auto) (0.00-0.02) K/uL PT Cancelled INR Cancelled APTT Cancelled PTT Ratio Cancelled VBG pH 7.40 (7.36-7.41) VBG pCO2 41 (38-50) mmHg VBG pO2 33 mmHg VBG HCO3 25 mmol/L VBG O2 Saturation 66.3 % VBG Base Excess -0.1 mEq/L Barometric Pressure 731.6 mm/Hg Sodium (136-145) mmol/L Potassium (3.5-5.1) mmol/L Chloride (98-107) mmol/L Carbon Dioxide (21-32) mmol/L Anion Gap (3-11) BUN (7-18) mg/dl Creatinine (0.6-1.2) mg/dl Est Cr Clr Drug Dosing Est GFR ( Amer) Est GFR (Non-Af Amer) BUN/Creatinine Ratio (10-20) Glucose (70-99) mg/dl Lactate (0.4-2.0) mmol/L Calcium (8.5-10.1) mg/dl Magnesium (1.8-2.4) mg/dl Total Bilirubin (0.2-1) mg/dl AST (15-37) U/L ALT (12-78) U/L Alkaline Phosphatase (45-117) U/L Troponin I (0-0.045) ng/ml Total Protein (6.4-8.2) gm/dl Albumin (3.4-5.0) gm/dl Globulin (2.5-4.0) gm/dl Albumin/Globulin Ratio (0.9-2) Procalcitonin (0-0.5) ng/ml Urine Color Yellow Urine Appearance Cloudy A (Clear) Urine pH 5.0 (4.5-7.5) Ur Specific [place] 1.028 (1.000-1.030) Urine Protein Negative (Negative) Urine Glucose (UA) Trace H (Negative) Urine Ketones Trace H (Negative) Urine Blood Negative (Negative) Urine Nitrite Negative (Negative) Urine Bilirubin Negative (Negative) Urine Urobilinogen Negative (Negative) Ur Leukocyte Esterase Negative (Negative) Urine WBC (Auto) 1-5 (0-5) /hpf Urine RBC (Auto) 0-4 (0-4) /hpf U Hyaline Cast (Auto) 1-5 (0-5) /lpf U Epithel Cells (Auto) >30 H (0-5) /lpf Urine Bacteria (Auto) 1+ H (Negative) 06/23/20 06/23/20 Range/Units 21:48 21:49 WBC (4.8-10.8) K/uL RBC (4.2-5.4) M/uL Hgb (12.0-16.0) g/dL Hct (37-47) % MCV (80-100) fL MCH (25-34) pg MCHC (32-36) g/dL RDW Std Deviation (36.4-46.3) fL RDW Coeff of Erin (11.5-14.5) % Plt Count (130-400) K/uL MPV (7.4-10.4) fL Immature Gran % (Auto) % Neut % (Auto) % Lymph % (Auto) % [place] % (Auto) % Eos % (Auto) % Baso % (Auto) % Neut # (Auto) (1.4-6.5) K/uL Lymph # (Auto) (1.2-3.4) K/uL [place] # (Auto) (0.11-0.59) K/uL Eos # (Auto) (0-0.5) K/uL Baso # (Auto) (0-0.2) K/uL Immature Gran # (Auto) (0.00-0.02) K/uL PT 9.7 INR 1.0 APTT 28.6 PTT Ratio 1.1 VBG pH (7.36-7.41) VBG pCO2 (38-50) mmHg VBG pO2 mmHg VBG HCO3 mmol/L VBG O2 Saturation % VBG Base Excess mEq/L Barometric Pressure mm/Hg Sodium (136-145) mmol/L Potassium (3.5-5.1) mmol/L Chloride (98-107) mmol/L Carbon Dioxide (21-32) mmol/L Anion Gap (3-11) BUN (7-18) mg/dl Creatinine (0.6-1.2) mg/dl Est Cr Clr Drug Dosing Est GFR ( Amer) Est GFR (Non-Af Amer) BUN/Creatinine Ratio (10-20) Glucose (70-99) mg/dl Lactate 1.7 (0.4-2.0) mmol/L Calcium (8.5-10.1) mg/dl Magnesium (1.8-2.4) mg/dl Total Bilirubin (0.2-1) mg/dl AST (15-37) U/L ALT (12-78) U/L Alkaline Phosphatase (45-117) U/L Troponin I (0-0.045) ng/ml Total Protein (6.4-8.2) gm/dl Albumin (3.4-5.0) gm/dl Globulin (2.5-4.0) gm/dl Albumin/Globulin Ratio (0.9-2) Procalcitonin (0-0.5) ng/ml Urine Color Urine Appearance (Clear) Urine pH (4.5-7.5) Ur Specific [place] (1.000-1.030) Urine Protein (Negative) Urine Glucose (UA) (Negative) Urine Ketones (Negative) Urine Blood (Negative) Urine Nitrite (Negative) Urine Bilirubin (Negative) Urine Urobilinogen (Negative) Ur Leukocyte Esterase (Negative) Urine WBC (Auto) (0-5) /hpf Urine RBC (Auto) (0-4) /hpf U Hyaline Cast (Auto) (0-5) /lpf U Epithel Cells (Auto) (0-5) /lpf Urine Bacteria (Auto) (Negative) Diagnostic Findings By my interpretation - CXR with mild bibasilar airspace disease, no obvious consolidation, PTX or evidence of CHF CTA Chest - Per STAT-rad: No PE or aortic dissection. Right anterior upper lob subpleural scarring with possible mild interstitial disease/fibrosis. Mild pleural thickening through the right middle lobe anteriorly. Middle left posterior dependent atelectasis. partially calcified nodules within the LLL most likely associated wtih sequela of previous granulomatous infection. Otherwise, stability can be assessed with follow-up CT at 6 month periods for total of 2 years. Remainder of lung sampson are clear with no acute cardiopulmonary process. No pleural effusion. No significant LAD or mass within the mediastinum or hilar regions. Atherosclerotic disease of aorta. no aneurysms. PG Care Time/CCT Total # of Minutes Spent Total Time Spent with Patient: Total time spent is greater than 50% in coordination of care (as documented) at patient's floor/unit and/or counseling patient: Coding Level of Care Code 65157 Initial Inpt Care Lvl 3 Diagnoses COVID-19 U07.1 Hypertension I10 Hypertension type: essential hypertension Depression F32.9 Depression Type: major depressive disorder Major depression recurrence: unspecified whether recurrent Active/Remission status: remission status unspecified COPD (chronic obstructive pulmonary disease) J44.9 COPD type: unspecified COPD Diastolic congestive heart failure I50.32 Heart failure chronicity: chronic Hypercholesteremia E78.00 Diabetes mellitus type 2, insulin dependent E11.9; Z79.4 Mild CAD I25.10 GERD (gastroesophageal reflux disease) K21.9 Esophagitis presence: esophagitis presence not specified (1) Hypertension Hypertension type: essential hypertension Qualified Code(s): I10 - Essential (primary) hypertension (2) Depression Depression Type: major depressive disorder Major depression recurrence: unspecified whether recurrent Active/Remission status: remission status unspecified Qualified Code(s): F32.9 - Major depressive disorder, single episode, unspecified (3) COPD (chronic obstructive pulmonary disease) COPD type: unspecified COPD Qualified Code(s): J44.9 - Chronic obstructive pulmonary disease, unspecified (4) Diastolic congestive heart failure Heart failure chronicity: chronic Qualified Code(s): I50.32 - Chronic diastolic (congestive) heart failure (5) GERD (gastroesophageal reflux disease) Esophagitis presence: esophagitis presence not specified Qualified Code(s): K21.9 - Gastro-esophageal reflux disease without esophagitis
--- NOTE | 2020-06-23 23:24 | Emergency Department Note ---
History of Present Illness General Chief complaint: Shortness of Breath/Dyspnea Stated complaint: COVID+, ILLNESS Time Seen by Provider: 06/23/20 20:14 History of Present Illness Provider complaint: Chest pain shortness of breath Covid positive fever Onset (ago): hour(s) 1 Location: chest Associated symptoms: + chest pain, + cough, + fever/chills, + shortness of breath and + weakness; no nausea/vomiting 80-year-old female presents emergency department for chest pain shortness of breath cough fever body aches and diarrhea. Patient states she tested positive for COVID-19 recently. She states her symptoms are gone for last month. Patient denies any hematochezia, melena, hemoptysis, hematuria or dysuria. Home Medications Medication Instructions Recorded Confirmed Type ipratropium bromide 21 mcg (0.03 2 sprays INTNAS TID PRN #30 ml 10/28/18 06/23/20 Rx %) nasal spray Lift Chair #1 ea 03/09/19 05/29/20 Rx aspirin 81 mg tablet,delayed 81 mg PO DAILY 05/02/19 06/23/20 History release albuterol sulfate 90 mcg/actuation 2 puffs INH QID PRN #8 gm 06/06/19 06/23/20 Rx aerosol inhaler pantoprazole 40 mg tablet,delayed 40 mg PO QAM #90 tab 06/06/19 06/23/20 Rx release tramadol 50 mg tablet 50 - 100 mg PO Q6 PRN #30 tab 06/26/19 06/23/20 Rx metoprolol succinate 50 mg 50 mg PO DAILY #60 tab 07/04/19 06/23/20 Rx tablet,extended release 24 hr nystatin 100,000 unit/gram topical 1 appln TOP BID 21 Days #30 gm 08/11/19 06/23/20 Rx powder nystatin 100,000 unit/gram topical 1 appln TOP BID #60 gm 08/28/19 06/23/20 Rx cream gabapentin 600 mg tablet 1,200 mg PO BID #360 tab 08/31/19 06/23/20 Rx potassium chloride 10 mEq 10 meq PO QAM #90 tab 08/31/19 06/23/20 Rx tablet,extended release atorvastatin 40 mg tablet 40 mg PO HS #90 tab 10/12/19 06/23/20 Rx furosemide 40 mg tablet 40 mg PO QAM #90 tab 10/16/19 06/23/20 Rx insulin glargine 100 unit/mL 30 unit SUBCUT BID #20 ml 11/15/19 06/23/20 Rx subcutaneous solution lancets 30 gauge #100 ea 11/15/19 05/29/20 Rx meloxicam 7.5 mg tablet 7.5 mg PO BID PRN #60 tab 12/19/19 06/23/20 Rx cyclobenzaprine 5 mg tablet 5 mg PO TID PRN #30 tab 12/27/19 06/23/20 Rx docusate sodium 100 mg capsule 200 mg PO DAILY #60 cap 12/27/19 06/23/20 Rx fluticasone furoate 100 1 inh INH DAILY #28 ea 01/01/20 06/23/20 Rx mcg-vilanterol 25 mcg/dose inhalation powder insulin syringe-needle U-100 0.3 #100 ea 01/29/20 05/29/20 Rx mL 31 gauge x 5/16" metoclopramide HCl 10 mg tablet 10 mg PO QID PRN #120 tab 03/04/20 06/23/20 Rx flash glucose sensor #1 ea 03/14/20 05/29/20 Rx flash glucose scanning reader #1 ea 03/26/20 05/29/20 Rx nitroglycerin 0.4 mg sublingual 0.4 mg SUBLINGUAL Q5M PRN #25 tab 05/16/20 06/23/20 Rx tablet citalopram 40 mg tablet 40 mg PO QPM #90 tab 05/20/20 06/23/20 Rx fluticasone propionate 50 2 spray INTRANASAL Q12H #15.8 ml 05/31/20 06/23/20 Rx mcg/actuation nasal spray,suspension albuterol sulfate 2.5 mg INH QID PRN 06/23/20 06/23/20 History colestipol 2 g PO TID 06/23/20 06/23/20 History Allergies Allergy/AdvReac Type Severity Reaction Status Date / Time bee venom protein (honey bee) Allergy Severe SWELLING Verified 06/23/20 21:36 SOB iodine Allergy Severe RASH; Verified 06/23/20 21:36 SHORTNESS OF BREATH codeine Allergy Intermediate SWELLING Verified 06/23/20 21:36 metformin Allergy Intermediate Diarrhea Verified 06/23/20 21:36 Penicillins Allergy Intermediate RASH/HIVES Verified 06/23/20 21:36 procaine Allergy Mild NOVOCAINE-R Verified 06/23/20 21:36 AKILAH Cephalosporins Allergy Unknown UNKNOWN Verified 06/23/20 21:36 clarithromycin Allergy Unknown Verified 06/23/20 21:36 Past Med/Surg History Medical History Anxiety Asthma RARELY NEEDS PRN INH Atrial fibrillation Paroxysmal, not on anticoagulation. Per cardio 12/25/15, "since she has not had a paroxysmal for many years, no therapy will be initiated today. Given her elevated CHADSVASC score, though, would recommend anticoagulation therapy if she were to develop any recurrent episodes of A. fib in the future." Chronic back pain Chronic chest pain Has been evaluated by cardio, ruled to be non-cardiac in origin. Delayed effect of radiation Depression Diabetes mellitus, type 2 IDDM. 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 Non-obstructive CAD. "Non-cardiac chest pain." History of carpal tunnel release BL History of cataract surgery History of cholecystectomy History of dilatation and curettage History of hysterectomy History of partial gastrectomy History of right mastectomy NO BP/IV RUE History of tonsillectomy History of tooth extraction History of total knee replacement BL History of total shoulder replacement RT Family History Sister Family history of diabetes mellitus Breast cancer Daughter Family history of reaction to anesthesia SLOW TO WAKE UP Grandfather (Maternal) Myocardial infarction Denies family history of Ovarian cancer Prostate cancer Colorectal cancer Social History Smoking Status: Never smoker Second Hand Exposure: No; Hx Alcohol Use: No Hx Substance Use: No Preferred Language: Yi Communication Ability: Effective Visual Impairment: No Limitations Hearing Ability: Normal General Maintenance Technician Required: No Beliefs That Will Affect Care: None marital status: Current Living Situation: Spouse 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[employer] Feels Safe at Home: Yes Childhood Exposure to Second-Hand Smoke: No Dental Care, Regularly: No Physical Activity Frequency: Does not Exercise Seatbelt Use: always Sunscreen Use: No Assistive Devices: Walker Review of Systems A total of 10 systems reviewed and were otherwise negative Physical Exam Vital Signs Vital Signs - 24 hr 06/23/20 20:15 06/23/20 20:38 06/23/20 21:16 Temperature 38.1 C H Temperature Source Oral Pulse Rate 80 80 Pulse Rate from SpO2 Sensor 80 Pulse Rhythm Regular Pulse Strength Normal Respiratory Rate 20 30 H Respiratory Effort / Characteristics Non-Labored Non-Labored Respiratory Depth Normal Respiratory Pattern Regular Blood Pressure 118/93 143/47 H Blood Pressure Mean 101 79 Blood Pressure Position Sitting Pulse Oximetry 96 96 95 Oxygen Delivery Method Room Air Room Air Sepsis Recent Fever Within 48 Hours Yes Sepsis New/Unexplained Change in Mental Status No Sepsis Action Taken by Nursing No Action Required 06/23/20 21:29 06/23/20 21:30 06/23/20 21:31 Temperature Temperature Source Pulse Rate 78 78 83 Pulse Rate from SpO2 Sensor 78 78 78 Pulse Rhythm Pulse Strength Respiratory Rate 29 H 29 H 31 H Respiratory Effort / Characteristics Respiratory Depth Respiratory Pattern Blood Pressure 157/90 H Blood Pressure Mean 112 Blood Pressure Position Pulse Oximetry 94 94 95 Oxygen Delivery Method Sepsis Recent Fever Within 48 Hours Sepsis New/Unexplained Change in Mental Status Sepsis Action Taken by Nursing 06/23/20 21:40 06/23/20 21:46 06/23/20 21:50 Temperature Temperature Source Pulse Rate 81 77 79 Pulse Rate from SpO2 Sensor 81 77 79 Pulse Rhythm Pulse Strength Respiratory Rate 33 H 25 H 27 H Respiratory Effort / Characteristics Respiratory Depth Respiratory Pattern Blood Pressure 151/75 H Blood Pressure Mean 100 Blood Pressure Position Pulse Oximetry 95 95 95 Oxygen Delivery Method Sepsis Recent Fever Within 48 Hours Sepsis New/Unexplained Change in Mental Status Sepsis Action Taken by Nursing 06/23/20 22:00 06/23/20 22:01 06/23/20 22:02 Temperature Temperature Source Pulse Rate 77 79 83 Pulse Rate from SpO2 Sensor 76 79 83 Pulse Rhythm Pulse Strength Respiratory Rate 24 26 H 25 H Respiratory Effort / Characteristics Respiratory Depth Respiratory Pattern Blood Pressure 147/75 H Blood Pressure Mean 99 Blood Pressure Position Pulse Oximetry 95 94 95 Oxygen Delivery Method Sepsis Recent Fever Within 48 Hours Sepsis New/Unexplained Change in Mental Status Sepsis Action Taken by Nursing 06/23/20 22:25 06/23/20 22:30 06/23/20 23:00 Temperature Temperature Source Pulse Rate 89 89 88 Pulse Rate from SpO2 Sensor 90 89 88 Pulse Rhythm Pulse Strength Respiratory Rate 21 28 H 24 Respiratory Effort / Characteristics Respiratory Depth Respiratory Pattern Blood Pressure Blood Pressure Mean Blood Pressure Position Pulse Oximetry 93 97 97 Oxygen Delivery Method Room Air Sepsis Recent Fever Within 48 Hours Sepsis New/Unexplained Change in Mental Status Sepsis Action Taken by Nursing 06/23/20 23:01 06/23/20 23:10 06/23/20 23:16 Temperature Temperature Source Pulse Rate 86 83 81 Pulse Rate from SpO2 Sensor 87 83 81 Pulse Rhythm Pulse Strength Respiratory Rate 22 24 22 Respiratory Effort / Characteristics Respiratory Depth Respiratory Pattern Blood Pressure 147/75 H 142/95 H Blood Pressure Mean 99 110 Blood Pressure Position Pulse Oximetry 97 95 96 Oxygen Delivery Method Room Air Room Air Room Air Sepsis Recent Fever Within 48 Hours Sepsis New/Unexplained Change in Mental Status Sepsis Action Taken by Nursing Physical Exam GENERAL: She is oriented to person, place, and time. She appears well-developed and well-nourished. She does not appear distressed. HENT: Exam performed. -Head: Normocephalic and atraumatic. -Right Ear: External ear normal. No mastoid tenderness. -Left Ear: External ear normal. No mastoid tenderness. -Mouth/Throat: The oropharynx is clear and moist. No trismus in the jaw. No dental abscesses or uvula swelling. No oropharyngeal exudate or tonsillar abscesses. EYES: Conjunctivae and EOM are normal. Pupils are equal, round, and reactive to light. Right eye exhibits no discharge. Left eye exhibits no discharge. No scleral icterus. NECK: Normal range of motion. Neck supple. No JVD present. No spinous process tenderness present. No carotid bruit present. No rigidity. No tracheal deviation and normal range of motion present. No Brudzinski's sign and no Kernig's sign noted. CV: Normal rate, regular rhythm, normal heart sounds and intact distal pulses. There is no peripheral edema. Palpable radial pulses bue. PULM/CHEST: Effort normal and breath sounds normal. No respiratory distress. No stridor. She has no wheezes. She has no rales. -Chest Wall: She exhibits no tenderness. ABD: The abdomen is soft. Bowel sounds are normal. She has no distension. No mass is present. There is no tenderness. There is no rebound, no guarding, no Saenz's sign and no tenderness at McBurney's point. Rovsig negative MUSC/SKEL: Normal range of motion. There is no peripheral edema, tenderness or deformity. LYMPH: No cervical adenopathy. NEURO: She is alert and oriented to person, place, and time. She has normal strength. No cranial nerve deficit or sensory deficit. Coordination and gait normal. GCS eye subscore is 4. GCS verbal subscore is 5. GCS motor subscore is 6. Cerebellar tests wnl. SKIN: Skin is warm and dry. She is not diaphoretic. PSYCH: She has a normal mood and affect. Behavior is normal. Judgment and thought content normal. Course Course 2014: The patient was evaluated in room B10. A complete history and physical exam was performed Cardiac monitoring: An order was placed for continuous cardiac monitoring. The monitor shows a rate of 80 with sinus rhythm Patient was seen in full airborne precautions. Patient was seen in N95's, gloves, gowns, face shield by myself and staff. 2250: Vital signs stable. Patient in no respiratory distress. Labs and imaging within normal limits. Patient was informed that she was can be discharged home within the patient became very upset and apprehensive about discharging home. Patient states her is also in the emergency department with Covid symptoms. She states her is the only one who can take care of her as there is no family member who can take care of her in their home mission worker person is the one who got him sick with Covid. The is being admitted by another provider. Given the circumstances the patient will be admitted to the [facility] hospitalist team Dr. West has been notified. Administered Medications Discontinued Medications Acetaminophen (Acetaminophen 500 Mg Tab) 1,000 mg PO NOW STA Stop: 06/23/20 22:42 Last Admin: 06/23/20 22:48 Dose: 1,000 mg Documented by: [id number] Diphenhydramine HCl (Diphenhydramine 50 Mg/Ml Vial) 25 mg IV NOW STA Stop: 06/23/20 20:59 Last Admin: 06/23/20 22:04 Dose: 25 mg Documented by: [id number] Ioversol (Optiray 350 500ml) 114 ml IV ONCE ONE Stop: 06/23/20 22:17 Last Admin: 06/23/20 22:16 Dose: 114 ml Documented by: [id number] Methylprednisolone (Methylprednisolone 125 Mg/2 Ml Vial) 125 mg IV NOW STA Stop: 06/23/20 20:59 Last Admin: 06/23/20 22:04 Dose: 125 mg Documented by: [id number] Medical Decision Making Laboratory Data Result diagrams: 06/23/20 20:40 06/23/20 20:40 Lab Results 06/23/20 06/23/20 06/23/20 Range/Units 20:40 20:40 20:40 WBC 4.63 L (4.8-10.8) K/uL RBC 4.81 (4.2-5.4) M/uL Hgb 13.6 (12.0-16.0) g/dL Hct 42.9 (37-47) % MCV 89.2 (80-100) fL MCH 28.3 (25-34) pg MCHC 31.7 L (32-36) g/dL RDW Std Deviation 47.5 H (36.4-46.3) fL RDW Coeff of Erin 14.4 (11.5-14.5) % Plt Count 192 (130-400) K/uL MPV 10.2 (7.4-10.4) fL Immature Gran % (Auto) 0.2 % Neut % (Auto) 55.3 % Lymph % (Auto) 30.0 % [place] % (Auto) 13.2 % Eos % (Auto) 1.1 % Baso % (Auto) 0.2 % Neut # (Auto) 2.56 (1.4-6.5) K/uL Lymph # (Auto) 1.39 (1.2-3.4) K/uL [place] # (Auto) 0.61 H (0.11-0.59) K/uL Eos # (Auto) 0.05 (0-0.5) K/uL Baso # (Auto) 0.01 (0-0.2) K/uL Immature Gran # (Auto) 0.01 (0.00-0.02) K/uL PT INR APTT PTT Ratio VBG pH (7.36-7.41) VBG pCO2 (38-50) mmHg VBG pO2 mmHg VBG HCO3 mmol/L VBG O2 Saturation % VBG Base Excess mEq/L Barometric Pressure mm/Hg Sodium 142 (136-145) mmol/L Potassium 4.0 (3.5-5.1) mmol/L Chloride 111 H (98-107) mmol/L Carbon Dioxide 23 (21-32) mmol/L Anion Gap 8.0 (3-11) BUN 15 (7-18) mg/dl Creatinine 0.93 (0.6-1.2) mg/dl Est Cr Clr Drug Dosing Not Reportable Est GFR ( Amer) 66.8 Est GFR (Non-Af Amer) 57.6 BUN/Creatinine Ratio 16.4 (10-20) Glucose 208 H (70-99) mg/dl Lactate (0.4-2.0) mmol/L Calcium 8.0 L (8.5-10.1) mg/dl Magnesium 2.1 (1.8-2.4) mg/dl Total Bilirubin 0.3 (0.2-1) mg/dl AST 26 (15-37) U/L ALT 24 (12-78) U/L Alkaline Phosphatase 143 H (45-117) U/L Troponin I < 0.015 (0-0.045) ng/ml Total Protein 7.2 (6.4-8.2) gm/dl Albumin 3.0 L (3.4-5.0) gm/dl Globulin 4.2 H (2.5-4.0) gm/dl Albumin/Globulin Ratio 0.7 L (0.9-2) Procalcitonin < 0.05 (0-0.5) ng/ml Urine Color Urine Appearance (Clear) Urine pH (4.5-7.5) Ur Specific [place] (1.000-1.030) Urine Protein (Negative) Urine Glucose (UA) (Negative) Urine Ketones (Negative) Urine Blood (Negative) Urine Nitrite (Negative) Urine Bilirubin (Negative) Urine Urobilinogen (Negative) Ur Leukocyte Esterase (Negative) Urine WBC (Auto) (0-5) /hpf Urine RBC (Auto) (0-4) /hpf U Hyaline Cast (Auto) (0-5) /lpf U Epithel Cells (Auto) (0-5) /lpf Urine Bacteria (Auto) (Negative) 06/23/20 06/23/20 06/23/20 Range/Units 20:40 21:32 21:48 WBC (4.8-10.8) K/uL RBC (4.2-5.4) M/uL Hgb (12.0-16.0) g/dL Hct (37-47) % MCV (80-100) fL MCH (25-34) pg MCHC (32-36) g/dL RDW Std Deviation (36.4-46.3) fL RDW Coeff of Erin (11.5-14.5) % Plt Count (130-400) K/uL MPV (7.4-10.4) fL Immature Gran % (Auto) % Neut % (Auto) % Lymph % (Auto) % [place] % (Auto) % Eos % (Auto) % Baso % (Auto) % Neut # (Auto) (1.4-6.5) K/uL Lymph # (Auto) (1.2-3.4) K/uL [place] # (Auto) (0.11-0.59) K/uL Eos # (Auto) (0-0.5) K/uL Baso # (Auto) (0-0.2) K/uL Immature Gran # (Auto) (0.00-0.02) K/uL PT Cancelled INR Cancelled APTT Cancelled PTT Ratio Cancelled VBG pH 7.40 (7.36-7.41) VBG pCO2 41 (38-50) mmHg VBG pO2 33 mmHg VBG HCO3 25 mmol/L VBG O2 Saturation 66.3 % VBG Base Excess -0.1 mEq/L Barometric Pressure 731.6 mm/Hg Sodium (136-145) mmol/L Potassium (3.5-5.1) mmol/L Chloride (98-107) mmol/L Carbon Dioxide (21-32) mmol/L Anion Gap (3-11) BUN (7-18) mg/dl Creatinine (0.6-1.2) mg/dl Est Cr Clr Drug Dosing Est GFR ( Amer) Est GFR (Non-Af Amer) BUN/Creatinine Ratio (10-20) Glucose (70-99) mg/dl Lactate (0.4-2.0) mmol/L Calcium (8.5-10.1) mg/dl Magnesium (1.8-2.4) mg/dl Total Bilirubin (0.2-1) mg/dl AST (15-37) U/L ALT (12-78) U/L Alkaline Phosphatase (45-117) U/L Troponin I (0-0.045) ng/ml Total Protein (6.4-8.2) gm/dl Albumin (3.4-5.0) gm/dl Globulin (2.5-4.0) gm/dl Albumin/Globulin Ratio (0.9-2) Procalcitonin (0-0.5) ng/ml Urine Color Yellow Urine Appearance Cloudy A (Clear) Urine pH 5.0 (4.5-7.5) Ur Specific [place] 1.028 (1.000-1.030) Urine Protein Negative (Negative) Urine Glucose (UA) Trace H (Negative) Urine Ketones Trace H (Negative) Urine Blood Negative (Negative) Urine Nitrite Negative (Negative) Urine Bilirubin Negative (Negative) Urine Urobilinogen Negative (Negative) Ur Leukocyte Esterase Negative (Negative) Urine WBC (Auto) 1-5 (0-5) /hpf Urine RBC (Auto) 0-4 (0-4) /hpf U Hyaline Cast (Auto) 1-5 (0-5) /lpf U Epithel Cells (Auto) >30 H (0-5) /lpf Urine Bacteria (Auto) 1+ H (Negative) 06/23/20 06/23/20 Range/Units 21:48 21:49 WBC (4.8-10.8) K/uL RBC (4.2-5.4) M/uL Hgb (12.0-16.0) g/dL Hct (37-47) % MCV (80-100) fL MCH (25-34) pg MCHC (32-36) g/dL RDW Std Deviation (36.4-46.3) fL RDW Coeff of Erin (11.5-14.5) % Plt Count (130-400) K/uL MPV (7.4-10.4) fL Immature Gran % (Auto) % Neut % (Auto) % Lymph % (Auto) % [place] % (Auto) % Eos % (Auto) % Baso % (Auto) % Neut # (Auto) (1.4-6.5) K/uL Lymph # (Auto) (1.2-3.4) K/uL [place] # (Auto) (0.11-0.59) K/uL Eos # (Auto) (0-0.5) K/uL Baso # (Auto) (0-0.2) K/uL Immature Gran # (Auto) (0.00-0.02) K/uL PT 9.7 INR 1.0 APTT 28.6 PTT Ratio 1.1 VBG pH (7.36-7.41) VBG pCO2 (38-50) mmHg VBG pO2 mmHg VBG HCO3 mmol/L VBG O2 Saturation % VBG Base Excess mEq/L Barometric Pressure mm/Hg Sodium (136-145) mmol/L Potassium (3.5-5.1) mmol/L Chloride (98-107) mmol/L Carbon Dioxide (21-32) mmol/L Anion Gap (3-11) BUN (7-18) mg/dl Creatinine (0.6-1.2) mg/dl Est Cr Clr Drug Dosing Est GFR ( Amer) Est GFR (Non-Af Amer) BUN/Creatinine Ratio (10-20) Glucose (70-99) mg/dl Lactate 1.7 (0.4-2.0) mmol/L Calcium (8.5-10.1) mg/dl Magnesium (1.8-2.4) mg/dl Total Bilirubin (0.2-1) mg/dl AST (15-37) U/L ALT (12-78) U/L Alkaline Phosphatase (45-117) U/L Troponin I (0-0.045) ng/ml Total Protein (6.4-8.2) gm/dl Albumin (3.4-5.0) gm/dl Globulin (2.5-4.0) gm/dl Albumin/Globulin Ratio (0.9-2) Procalcitonin (0-0.5) ng/ml Urine Color Urine Appearance (Clear) Urine pH (4.5-7.5) Ur Specific [place] (1.000-1.030) Urine Protein (Negative) Urine Glucose (UA) (Negative) Urine Ketones (Negative) Urine Blood (Negative) Urine Nitrite (Negative) Urine Bilirubin (Negative) Urine Urobilinogen (Negative) Ur Leukocyte Esterase (Negative) Urine WBC (Auto) (0-5) /hpf Urine RBC (Auto) (0-4) /hpf U Hyaline Cast (Auto) (0-5) /lpf U Epithel Cells (Auto) (0-5) /lpf Urine Bacteria (Auto) (Negative) Imaging Data Radiologist's Impression: Preliminary Findings Only See Final Report For Complete Findings CTA CHEST: No pulmonary embolus or aortic dissection. Right anterior upper lobe subpleural scarring with possible mild interstitial disease/fibrosis. Mild pleural thickening through the right middle lobe anteriorly. Minimal left posterior dependent atelectasis. Partially calcified nodule within the left lower lobe, image 59, series 3 measuring 8.4 mm. This is most likely associated with sequela of previous granulomatous infection. Otherwise stability can be assessed with follow-up CT at 6 months interval for a total period of 2 years. Remainder of the lung sampson are clear with no acute cardiopulmonary process. No pleural effusion. No significant lymphadenopathy or mass within the mediastinum or hilar regions. Atherosclerotic disease of aorta. No aneurysm. Visualized upper abdominal structures revealed status post cholecystectomy otherwise unremarkable. Surgical clips surrounding the distal esophagus with clinical correlation recommended. Degenerative disease of the spine. Mild cardiomegaly with coronary artery calcifications. Radiologist: Hiwot Barillas MD Study ready at 22:26 and initial results transmitted at 22:30 ECG Data Indication: + chest pain Rate (beats per minute): 80 Rhythm: + normal sinus ECG Intervals/blocks: + Normal QRS, + Normal MI and + Normal QT-c ECG ST segments: + Normal ST segments MDM Narrative Vital signs stable. Patient in no respiratory distress. Labs and imaging within normal limits. Patient was informed that she was can be discharged home within the patient became very upset and apprehensive about discharging home. Patient states her is also in the emergency department with Covid symptoms. She states her is the only one who can take care of her as there is no family member who can take care of her in their home mission worker person is the one who got him sick with Covid. The is being admitted by another provider. Given the circumstances [facility] been [facility] Impression & Plan COVID-19, Chest pain Discharge Plan Visit Data Chief Complaint: Shortness of Breath/Dyspnea Stated Complaint: COVID+, ILLNESS ED Provider: Liam Veelz Discharge Problem: COVID-19, Chest pain Patient Disposition: Admitted As Inpatient Forms Stand Alone Forms: My [facility], Virtual Emergency Department, Important Visit Information Prescriptions Prescriptions: No Action nystatin 100,000 unit/gram powder 1 appln TOP BID 21 Days Qty: 30 RF: 2 ipratropium bromide 0.03 % spray,non-aerosol 2 sprays INTNAS TID PRN (Reason: allergy symptoms) Qty: 30 RF: 2 pantoprazole [Protonix] 40 mg tablet,delayed release (DR/EC) 40 mg PO QAM Qty: 90 RF: 3 albuterol sulfate [Ventolin HFA] 90 mcg/actuation HFA aerosol inhaler 2 puffs INH QID PRN (Reason: shortness of breath or wheezing) Qty: 8 RF: 5 tramadol [Ultram] 50 mg tablet 50 - 100 mg PO Q6 PRN (Reason: Pain - [facility]. Leary [facility]# [id number]) Qty: 30 RF: 0 metoprolol succinate 50 mg tablet extended release 24 hr 50 mg PO DAILY Qty: 60 RF: 6 potassium chloride [Klor-Con 10] 10 mEq tablet extended release 10 meq PO QAM Qty: 90 RF: 3 gabapentin [Neurontin] 600 mg tablet 1,200 mg PO BID Qty: 360 RF: 3 atorvastatin [Lipitor] 40 mg tablet 40 mg PO HS Qty: 90 RF: 3 furosemide 40 mg tablet 40 mg PO QAM Qty: 90 RF: 3 Lantus U-100 Insulin 100 unit/mL solution 30 unit subcut BID Qty: 20 RF: 11 (DME) lancets [OneTouch Delica Plus Lancet] 30 gauge misc See Rx Instructions .ROUTE .MEDSUPPLY Qty: 100 RF: 3 meloxicam 7.5 mg tablet 7.5 mg PO BID PRN (Reason: Pain) Qty: 60 RF: 11 cyclobenzaprine 5 mg tablet 5 mg PO TID PRN (Reason: muscle spasm) Qty: 30 RF: 1 docusate sodium 100 mg capsule 200 mg PO DAILY Qty: 60 RF: 11 Breo Ellipta 100-25 mcg/dose blister with device 1 inh INH DAILY Qty: 28 RF: 5 (DME) insulin syringe-needle U-100 [BD Insulin Syringe Ultra-Fine] 0.3 mL 31 g auge x 5/16" syringe See Rx Instructions .ROUTE .MEDSUPPLY Qty: 100 RF: 3 metoclopramide HCl [Reglan] 10 mg tablet 10 mg PO QID PRN (Reason: nausea and vomiting) Qty: 120 RF: 5 (DME) FreeStyle Vanessa 14 Day Sensor Kit See Rx Instructions .ROUTE .MEDSUPPLY Qty: 1 RF: 0 (DME) FreeStyle Vanessa 14 Day [place] Misc See Rx Instructions .ROUTE .MEDSUPPLY Qty: 1 RF: 0 nitroglycerin 0.4 mg tablet, sublingual 0.4 mg sublingual Q5M PRN (Reason: chest pain) Qty: 25 RF: 3 citalopram [Celexa] 40 mg tablet 40 mg PO QPM Qty: 90 RF: 3 fluticasone propionate [Allergy Relief (fluticasone)] 50 mcg/actuation spray,suspension 2 spray intranasal Q12H Qty: 15.8 RF: 11 aspirin [Adult Aspirin Regimen] 81 mg tablet,delayed release (DR/EC) 81 mg PO DAILY RF: 0 (DME) Lift Chair Misc See Rx Instructions .ROUTE .MEDSUPPLY Qty: 1 RF: 0 nystatin 100,000 unit/gram cream 1 appln TOP BID Qty: 60 RF: 11 albuterol sulfate 2.5 mg /3 mL (0.083 %) solution for nebulization 2.5 mg INH QID PRN (Reason: SOB) RF: 0 colestipol 1 gram tablet 2 g PO TID RF: 0 Referrals Referrals: Paul Leary III, MD [Primary Care Provider] - (Follow-up in 1-2 weeks) Discharge Problem: Chest pain Qualifiers: Chest pain type: unspecified Qualified Code(s): R07.9 - Chest pain, unspecified
[2020-06-24] MEDS ORDERED: BENZONATATE 100 MG CAPSULE PO PRN (00:02)
[2020-06-24] MEDS ORDERED: DEXTROSE 50% 50 ML SYRINGE IV PRN (01:56)
[2020-06-24] MEDS ORDERED: POLYETHYLENE (MIRALAX) 17 GM PACK PO PRN (01:56)
[2020-06-24] MEDS ORDERED: ONDANSETRON INJ 2 MG/ML 2 ML VIAL IV PRN (01:56)
[2020-06-24] MEDS ORDERED: GLUCOSE 10 TABS/TUBE PO PRN (01:56)
[2020-06-24] MEDS ORDERED: NITROGLYCERIN SL 0.4 MG/TAB TAB SL PRN (01:56)
[2020-06-24] MEDS ORDERED: GLUCAGON FOR INJ 1 MG VIAL SQ PRN (01:56)
[2020-06-24] MEDS ORDERED: CARBOHYDRATES FOR HYPOGLYCEMIA PO PRN (01:56)
[2020-06-24] MEDS: ACETAMINOPHEN 325 MG TAB PO PRN ×2 (04:20→12:34)
--- NOTE | 2020-06-24 06:50 | XRay Report ---
XR chest 1V portable CLINICAL HISTORY: SEPSIS COMPARISON STUDY: 04/28/2019 FINDINGS: The heart is enlarged. The left hemidiaphragm is obscured. A left pleural effusion and/or l eft basilar atelectasis/consolidation cannot be excluded. Clinical and radiographic follow-up is aditya mmended. Degenerative changes involve the shoulders. There is radiographic evidence of chronic rotato r cuff tear/degeneration. Postsurgical changes involve the right shoulder. IMPRESSION: 1. Cardiomegaly 2. Left hemidiaphragm is obscured. This suggests a left pleural effusion and/or left lower lobe atele ctasis/consolidation. Clinical and radiographic follow-up recommended ACT 112: Negative or not required by law. Electronically signed by: Fletcher Fernando M.D. 06/24/2020 6:48 AM
[2020-06-24 06:54] LABS: Hematocrit (blood only) 44.5 % (37-47); Hemoglobin 14.3 g/dL (12.0-16.0); Immature Granulocytes # (auto) 0.01 K/uL (0.00-0.02); Immature Granulocytes % (auto) 0.2 %; Lymphocytes # (auto) 0.67 K/uL (1.2-3.4); Lymphocytes % (auto) 16.3 %; Mean Corpuscular Hemoglobin 28.1 pg (25-34); Mean Corpuscular Hgb Conc 32.1 g/dL (32-36); Mean Corpuscular Volume 87.6 fL (80-100); Mean Platelet Volume 10.6 fL (7.4-10.4); Monocytes # (auto) 0.03 K/uL (0.11-0.59); Monocytes % (auto) 0.7 %; Neutrophils # (auto) 3.39 K/uL (1.4-6.5); Neutrophils % (auto) 82.8 %; Platelet Count 201 K/uL (130-400); RDW Coefficient of Variation 14.2 % (11.5-14.5); RDW Standard Deviation 45.9 fL (36.4-46.3); Red Blood Count 5.08 M/uL (4.2-5.4)
[2020-06-24] MEDS ORDERED: ALBUTEROL HFA 8 GM INHALER INH SCH (07:00)
[2020-06-24 07:24] LABS: BUN Creatinine Ratio 16.2 (10-20); Calcium 8.2 mg/dl (8.5-10.1); Creatinine Clr Calc Pharmacy 74.6 ml/min; Est GFR (African American) 82.6; Est GFR (Non-African American) 71.3; Magnesium 2.1 mg/dl (1.8-2.4)
[2020-06-24 07:32] LABS: Estimated Average Glucose 154 mg/dl
--- NOTE | 2020-06-24 07:58 | CT Scan Report ---
CHEST CTA for PULMONARY ARTERIES CT DOSE: 1053.68 mGy.cm HISTORY: Atypical chest pain. Covid positive. TECHNIQUE: Multiaxial CT images of the chest were performed following the intravenous administration of contrast to evaluate the pulmonary arteries. Maximal intensity projection images were also obtaine d. A dose lowering technique was utilized adhering to the principles of ALARA. COMPARISON STUDY: Chest CTA 08/07/2018. FINDINGS: Normal caliber thoracic aorta with no evidence for dissection. The heart is mildly enlarged . No pleural or pericardial effusions. Bilateral lower lobe subsegmental pulmonary arteries are nondi agnostic due to the motion artifact. Otherwise, no filling defects within the remaining pulmonary art eries to suggest pulmonary embolus. No mediastinal or hilar lymphadenopathy. Limited views of the upp er abdomen demonstrate a normal liver, spleen, and adrenal glands. There are few punctate left renal calculi. Prior cholecystectomy. Mild circumferential thickening of the esophagus, unchanged. 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 This remains unchanged. There is a single pro minent right axillary lymph node with adjacent fat stranding measuring 8 mm. This is also unchanged. No suspicious lytic or blastic osseous lesions. No pneumothorax. Mild emphysema. The central airways are patent. Calcified granuloma within the left lower lobe. A few bibasilar linear densities consiste nt with subsegmental atelectasis. No focal lung consolidations to suggest pneumonia. Linear densities within the right upper lobe anteriorly also favors scarring. IMPRESSION: 1. No evidence for pulmonary embolus with limitations as described above. 2. No focal lung consolidations to suggest pneumonia. 3. Mild emphysema. 4. Additional findings as described above. ACT 112: Negative or not required by law. Electronically signed by: Ariel Carrillo M.D. 06/24/2020 7:56 AM
[2020-06-24] MEDS: DOCUSATE SODIUM 100 MG CAP PO SCH (08:02)
[2020-06-24] MEDS: INSULIN ASPART 100 UNITS/ML 3 ML PEN SC SCH ×4 (09:20→21:30)
[2020-06-24] MEDS: ASPIRIN 81 MG ECTAB PO SCH (09:21)
[2020-06-24] MEDS: ENOXAPARIN INJ 40 MG/0.4 ML SYR SQ SCH ×2 (09:22→20:46)
[2020-06-24] MEDS: FLUTICASONE PROPIONATE NA SPR 16 GM BTL SCH ×2 (09:23→20:47)
[2020-06-24] MEDS: FLUTICASONE/VILANTEROL 100/25MCG 14 PUFFS/INHALER INH SCH (09:24)
[2020-06-24] MEDS: FUROSEMIDE 40 MG TAB PO SCH (09:24)
[2020-06-24] MEDS: GABAPENTIN 600 MG TAB PO SCH ×2 (09:25→20:47)
[2020-06-24] MEDS: INSULIN GLARGINE SOLOSTAR 100 UNITS/ML 3 ML PEN SC SCH ×2 (09:25→21:32)
[2020-06-24] MEDS: METOPROLOL SUCC 50MG EXT REL TAB PO SCH (09:26)
[2020-06-24] MEDS: NYSTATIN POWDER 15GM BTL EXT SCH ×2 (09:27→20:48)
[2020-06-24] MEDS: PANTOprazole 40 MG TAB PO SCH (09:27)
[2020-06-24] MEDS: COLESTIPOL HCL 1 GM TAB PO SCH ×3 (09:28→21:37)
[2020-06-24] MEDS: POTASSIUM CHLORIDE 10 MEQ TABCR PO SCH (09:28)
--- NOTE | 2020-06-24 13:57 | Hospitalist Progress Note ---
Date of Service June 24, 2020 Assessment & Plan (1) COVID-19: 80yo female presenting with Covid-19. Patient is quite stable at present. She is saturating well on room air. No distress. Unfortunately her is currently admitted with Covid-19 infection and her infection prevention practitioner has Covid-19 as well. She is unable to care for herself at home. -Monitor SpO2 per unit standard. Supplemental O2 if needed. If saturations drop to <94% on room air will initiate treatment with Dexamethasone, possible Remdesivir -Albuterol QID scheduled HFA, QID PRN nebs -Tylenol PRN pain or fever -Lovenox 40mg BID main symptoms today are nausea and generalized weakness, saturations are 96% on RA (2) Hypertension: Blood pressure stable -Continue metoprolol -Continue to monitor (3) Depression: Chronic -Continue Citalopram (4) COPD (chronic obstructive pulmonary disease): Chronic. Patient reports some mild SOB. No wheezing present on exam -Continue Fluticasone/Vilanterol -Continue Albuterol (5) Diastolic congestive heart failure: Patient appear to be well compensated. -Continue Lasix 40mg po qAM -Cautious use of fluids (6) Hypercholesteremia: Chronic -Continue Atorvastatin (7) Diabetes mellitus type 2, insulin dependent: Blood sugar elevated at 208 on admission. Patient was given steroids in the ER so may have some higher blood sugars -Continue Lantus 30u BID -ISS monitor for hypoglycemia, no episodes -Check A1C : 7.0% -Continue Gabapentin for neuropathy (8) Mild CAD: Chronic. Stable. No chest pain at present. Troponin is unremarkable -Continue ASA 81mg po daily -Continue metoprolol -Continue Atorvastatin (9) GERD (gastroesophageal reflux disease): Chronic. Well controlled -Continue Protonix 40mg po daily F/E/N - Heplock. Monitor electrolytes and replete as needed. 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 care reviewed labs, reviewed chart from admission Review of Systems Review of Systems: All systems reviewed & are unremarkable except as noted in Subjective Constitutional: + fatigue and + weakness Gastrointestinal: + abdominal pain (epigastric) and + nausea; no vomiting, no constipation and no diarrhea/loose stools Physical Exam Constitutional: well developed, + ill appearing, + obese and + frail appearing; no acute distress Neck: trachea midline, no thyromegaly Respiratory: normal respiratory effort, lungs clear to auscultation Cardiovascular: RRR, no murmur, no edema Gastrointestinal (Abdomen): normal bowel sounds, soft, nontender, no hepatosplenomegaly Musculoskeletal: Head/Neck/Chest: normocephalic, head atraumatic and neck supple Extremities: extremities normal to inspection and + abnormal strength (generalized weakness) Skin: no rashes, warm and dry Neurologic: patellar DTR's 2+ bilat, sensation intact and PERRL, EOMI, accommodation nl, no face palsy, no dysarthria Psychiatric: A+Ox3, euthymic affect Lymphatic: no cervical or axillary lymphadenopathy Results & Data Results & Data ([facility]) Vital Signs (Past 12 Hours) Vital Signs Temp Pulse Resp BP Pulse Ox 06/24/20 07:53 37.2 C 86 32 H 176/93 H 98 06/24/20 07:26 82 18 96 06/24/20 02:33 37.1 C 84 20 171/85 H 93 Laboratory Results Laboratory Results - last 24 hr 06/23/20 06/23/20 06/23/20 20:40 20:40 20:40 WBC 4.63 L RBC 4.81 Hgb 13.6 Hct 42.9 MCV 89.2 MCH 28.3 MCHC 31.7 L RDW Std Deviation 47.5 H RDW Coeff of Erin 14.4 Plt Count 192 MPV 10.2 Immature Gran % (Auto) 0.2 Neut % (Auto) 55.3 Lymph % (Auto) 30.0 [place] % (Auto) 13.2 Eos % (Auto) 1.1 Baso % (Auto) 0.2 Neut # (Auto) 2.56 Lymph # (Auto) 1.39 [place] # (Auto) 0.61 H Eos # (Auto) 0.05 Baso # (Auto) 0.01 Immature Gran # (Auto) 0.01 PT INR APTT PTT Ratio VBG pH VBG pCO2 VBG pO2 VBG HCO3 VBG O2 Saturation VBG Base Excess Barometric Pressure Sodium 142 Potassium 4.0 Chloride 111 H Carbon Dioxide 23 Anion Gap 8.0 BUN 15 Creatinine 0.93 Est Cr Clr Drug Dosing Not Reportable Est GFR ( Amer) 66.8 Est GFR (Non-Af Amer) 57.6 BUN/Creatinine Ratio 16.4 Glucose 208 H POC Glucose Estimat Average Glucose Hemoglobin A1c Lactate Calcium 8.0 L Magnesium 2.1 Total Bilirubin 0.3 AST 26 ALT 24 Alkaline Phosphatase 143 H Troponin I < 0.015 Total Protein 7.2 Albumin 3.0 L Globulin 4.2 H Albumin/Globulin Ratio 0.7 L Procalcitonin < 0.05 Urine Color Urine Appearance Urine pH Ur Specific [place] Urine Protein Urine Glucose (UA) Urine Ketones Urine Blood Urine Nitrite Urine Bilirubin Urine Urobilinogen Ur Leukocyte Esterase Urine WBC (Auto) Urine RBC (Auto) U Hyaline Cast (Auto) U Epithel Cells (Auto) Urine Bacteria (Auto) 06/23/20 06/23/20 06/23/20 20:40 21:32 21:48 WBC RBC Hgb Hct MCV MCH MCHC RDW Std Deviation RDW Coeff of Erin Plt Count MPV Immature Gran % (Auto) Neut % (Auto) Lymph % (Auto) [place] % (Auto) Eos % (Auto) Baso % (Auto) Neut # (Auto) Lymph # (Auto) [place] # (Auto) Eos # (Auto) Baso # (Auto) Immature Gran # (Auto) PT Cancelled INR Cancelled APTT Cancelled PTT Ratio Cancelled VBG pH 7.40 VBG pCO2 41 VBG pO2 33 VBG HCO3 25 VBG O2 Saturation 66.3 VBG Base Excess -0.1 Barometric Pressure 731.6 Sodium Potassium Chloride Carbon Dioxide Anion Gap BUN Creatinine Est Cr Clr Drug Dosing Est GFR ( Amer) Est GFR (Non-Af Amer) BUN/Creatinine Ratio Glucose POC Glucose Estimat Average Glucose Hemoglobin A1c Lactate Calcium Magnesium Total Bilirubin AST ALT Alkaline Phosphatase Troponin I Total Protein Albumin Globulin Albumin/Globulin Ratio Procalcitonin Urine Color Yellow Urine Appearance Cloudy A Urine pH 5.0 Ur Specific [place] 1.028 Urine Protein Negative Urine Glucose (UA) Trace H Urine Ketones Trace H Urine Blood Negative Urine Nitrite Negative Urine Bilirubin Negative Urine Urobilinogen Negative Ur Leukocyte Esterase Negative Urine WBC (Auto) 1-5 Urine RBC (Auto) 0-4 U Hyaline Cast (Auto) 1-5 U Epithel Cells (Auto) >30 H Urine Bacteria (Auto) 1+ H 06/23/20 06/23/20 06/24/20 21:48 21:49 06:22 WBC 4.10 L RBC 5.08 Hgb 14.3 Hct 44.5 MCV 87.6 MCH 28.1 MCHC 32.1 RDW Std Deviation 45.9 RDW Coeff of Erin 14.2 Plt Count 201 MPV 10.6 H Immature Gran % (Auto) 0.2 Neut % (Auto) 82.8 Lymph % (Auto) 16.3 [place] % (Auto) 0.7 Eos % (Auto) 0.0 Baso % (Auto) 0.0 Neut # (Auto) 3.39 Lymph # (Auto) 0.67 L [place] # (Auto) 0.03 L Eos # (Auto) 0.00 Baso # (Auto) 0.00 Immature Gran # (Auto) 0.01 PT 9.7 INR 1.0 APTT 28.6 PTT Ratio 1.1 VBG pH VBG pCO2 VBG pO2 VBG HCO3 VBG O2 Saturation VBG Base Excess Barometric Pressure Sodium Potassium Chloride Carbon Dioxide Anion Gap BUN Creatinine Est Cr Clr Drug Dosing Est GFR ( Amer) Est GFR (Non-Af Amer) BUN/Creatinine Ratio Glucose POC Glucose Estimat Average Glucose Hemoglobin A1c Lactate 1.7 Calcium Magnesium Total Bilirubin AST ALT Alkaline Phosphatase Troponin I Total Protein Albumin Globulin Albumin/Globulin Ratio Procalcitonin Urine Color Urine Appearance Urine pH Ur Specific [place] Urine Protein Urine Glucose (UA) Urine Ketones Urine Blood Urine Nitrite Urine Bilirubin Urine Urobilinogen Ur Leukocyte Esterase Urine WBC (Auto) Urine RBC (Auto) U Hyaline Cast (Auto) U Epithel Cells (Auto) Urine Bacteria (Auto) 06/24/20 06/24/20 06/24/20 06:22 06:22 08:18 WBC RBC Hgb Hct MCV MCH MCHC RDW Std Deviation RDW Coeff of [place] Plt Count MPV Immature Gran % (Auto) Neut % (Auto) Lymph % (Auto) [place] % (Auto) Eos % (Auto) Baso % (Auto) Neut # (Auto) Lymph # (Auto) [place] # (Auto) Eos # (Auto) Baso # (Auto) Immature Gran # (Auto) PT INR APTT PTT Ratio VBG pH VBG pCO2 VBG pO2 VBG HCO3 VBG O2 Saturation VBG Base Excess Barometric Pressure Sodium 139 Potassium 4.0 Chloride 110 H Carbon Dioxide 22 Anion Gap 7.0 BUN 13 Creatinine 0.78 Est Cr Clr Drug Dosing 74.6 Est GFR ( Amer) 82.6 Est GFR (Non-Af Amer) 71.3 BUN/Creatinine Ratio 16.2 Glucose 280 H POC Glucose 283 H Estimat Average Glucose 154 Hemoglobin A1c 7.0 H Lactate Calcium 8.2 L Magnesium 2.1 Total Bilirubin AST ALT Alkaline Phosphatase Troponin I Total Protein Albumin Globulin Albumin/Globulin Ratio Procalcitonin Urine Color Urine Appearance Urine pH Ur Specific [place] Urine Protein Urine Glucose (UA) Urine Ketones Urine Blood Urine Nitrite Urine Bilirubin Urine Urobilinogen Ur Leukocyte Esterase Urine WBC (Auto) Urine RBC (Auto) U Hyaline Cast (Auto) U Epithel Cells (Auto) Urine Bacteria (Auto) 06/24/20 12:39 WBC RBC Hgb Hct MCV MCH MCHC RDW Std Deviation RDW Coeff of Erin Plt Count MPV Immature Gran % (Auto) Neut % (Auto) Lymph % (Auto) [place] % (Auto) Eos % (Auto) Baso % (Auto) Neut # (Auto) Lymph # (Auto) [place] # (Auto) Eos # (Auto) Baso # (Auto) Immature Gran # (Auto) PT INR APTT PTT Ratio VBG pH VBG pCO2 VBG pO2 VBG HCO3 VBG O2 Saturation VBG Base Excess Barometric Pressure Sodium Potassium Chloride Carbon Dioxide Anion Gap BUN Creatinine Est Cr Clr Drug Dosing Est GFR ( Amer) Est GFR (Non-Af Amer) BUN/Creatinine Ratio Glucose POC Glucose 274 H Estimat Average Glucose Hemoglobin A1c Lactate Calcium Magnesium Total Bilirubin AST ALT Alkaline Phosphatase Troponin I Total Protein Albumin Globulin Albumin/Globulin Ratio Procalcitonin Urine Color Urine Appearance Urine pH Ur Specific [place] Urine Protein Urine Glucose (UA) Urine Ketones Urine Blood Urine Nitrite Urine Bilirubin Urine Urobilinogen Ur Leukocyte Esterase Urine WBC (Auto) Urine RBC (Auto) U Hyaline Cast (Auto) U Epithel Cells (Auto) Urine Bacteria (Auto) Medications Administered Current Inpatient Medications Acetaminophen (Acetaminophen 325 Mg Tab) 650 mg PO Q4H PRN PRN Reason: Pain or Fever Stop: 07/24/20 01:55 Last Admin: 06/24/20 12:34 Dose: 650 mg Documented by: Albuterol (Albuterol 0.083% Nebu Soln 3 Ml Vial) 2.5 mg INH QID PRN PRN Reason: Shortness Of Breath Stop: 07/24/20 01:55 Albuterol (Albuterol Hfa 8 Gm Inhaler) 2 puffs INH BIDR ISAIAS Stop: 07/24/20 18:59 Aspirin (Aspirin 81 Mg Ectab) 81 mg PO DAILY ISAIAS Stop: 07/24/20 08:59 Last Admin: 06/24/20 09:21 Dose: 81 mg Documented by: Atorvastatin Calcium (Atorvastatin 40 Mg Tab) 40 mg PO HS [facility] Stop: 07/24/20 20:59 Benzonatate (Benzonatate 100 Mg Capsule) 100 mg PO TID PRN PRN Reason: cough Stop: 07/24/20 08:59 Citalopram Hydrobromide (Citalopram 40 Mg Tab) 40 mg PO QPM ISAIAS Stop: 07/24/20 20:59 Colestipol HCl (Colestipol Hcl 1 Gm Tab) 2 gm PO TID@1000,1500,2200 ISAIAS Stop: 07/24/20 09:59 Last Admin: 06/24/20 09:28 Dose: 2 gm Documented by: Dextrose (Dextrose 50% 50 Ml Syringe) 25 - 50 ml IV UD PRN; Protocol PRN Reason: Hypoglycemia Protocol Stop: 07/24/20 01:55 Docusate Sodium (Docusate Sodium 100 Mg Cap) 200 mg PO DAILY ISAIAS Stop: 07/24/20 08:59 Last Admin: 06/24/20 08:02 Dose: Not Given Documented by: Enoxaparin Sodium (Enoxaparin Inj 40 Mg/0.4 Ml Syr) 40 mg SQ Q12H ISAIAS Stop: 07/24/20 08:59 Last Admin: 06/24/20 09:22 Dose: 40 mg Documented by: Fluticasone Propionate (Fluticasone Propionate Na Spr 16 Gm Btl) 2 sprays NA Q12 ISAIAS Stop: 07/24/20 08:59 Last Admin: 06/24/20 09:23 Dose: 2 sprays Documented by: Fluticasone/Vilanterol (Fluticasone/Vilanterol 100/25mcg 14 Puffs/Inhaler) 1 puffs INH DAILY ISAIAS Stop: 07/24/20 08:59 Last Admin: 06/24/20 09:24 Dose: 1 puffs Documented by: Furosemide (Furosemide 40 Mg Tab) 40 mg PO QAM ISAIAS Stop: 07/24/20 08:59 Last Admin: 06/24/20 09:24 Dose: 40 mg Documented by: Gabapentin (Gabapentin 600 Mg Tab) 1,200 mg PO BID ISAIAS Stop: 07/24/20 08:59 Last Admin: 06/24/20 09:25 Dose: 1,200 mg Documented by: Glucagon (Glucagon For Inj 1 Mg Vial) 1 mg SQ UD PRN; Protocol PRN Reason: Hypoglycemia Protocol Stop: 07/24/20 01:55 Glucose (Glucose 10 Tabs/Tube) 4 - 8 tabs PO UD PRN; Protocol PRN Reason: Hypoglycemia Protocol Stop: 07/24/20 01:55 Insulin Aspart (Insulin Aspart 100 Units/Ml 3 Ml Pen) 0 units SC ACHS ISAIAS Stop: 07/24/20 07:29 Last Admin: 06/24/20 09:20 Dose: 4 units Documented by: Insulin Glargine (Insulin Glargine Solostar 100 Units/Ml 3 Ml Pen) 30 units SC BID ISAIAS Stop: 07/24/20 08:59 Last Admin: 06/24/20 09:25 Dose: 30 units Documented by: Metoprolol Succinate (Metoprolol Succ 50mg Ext Rel Tab) 50 mg PO DAILY ISAIAS Stop: 07/24/20 08:59 Last Admin: 06/24/20 09:26 Dose: 50 mg Documented by: Miscellaneous (Carbohydrates For Hypoglycemia ) 15 - 30 gm PO UD PRN PRN Reason: Hypoglycemia Protocol Stop: 07/24/20 01:55 Nitroglycerin (Nitroglycerin Sl 0.4 Mg/Tab Tab) 0.4 mg SL Q5M PRN PRN Reason: chest pain Stop: 07/24/20 01:55 Nystatin (Nystatin Powder 15gm Btl) 1 appln EXT BID [facility] Stop: 07/24/20 08:59 Last Admin: 06/24/20 09:27 Dose: 1 appln Documented by: Ondansetron HCl (Ondansetron Inj 2 Mg/Ml 2 Ml Vial) 4 mg IV Q6H PRN PRN Reason: Nausea Stop: 07/24/20 01:55 Last Admin: 06/24/20 12:34 Dose: 4 mg Documented by: Pantoprazole Sodium (Pantoprazole 40 Mg Tab) 40 mg PO QAM [facility] Stop: 07/24/20 08:59 Last Admin: 06/24/20 09:27 Dose: 40 mg Documented by: Polyethylene Glycol (Polyethylene (Miralax) 17 Gm Pack) 17 gm PO DAILY PRN PRN Reason: Constipation Stop: 07/24/20 01:55 Potassium Chloride (Potassium Chloride 10 Meq Tabcr) 10 meq PO QAM [facility] Stop: 07/24/20 08:59 Last Admin: 06/24/20 09:28 Dose: 10 meq Documented by: PG Care Time/CCT Total # of Minutes Spent Total Time Spent with Patient: Total time spent is greater than 50% in coordination of care (as documented) at patient's floor/unit and/or counseling patient: Coding Level of Care Code 12335 Subseq Hosp Care Lvl 2 Diagnoses COVID-19 U07.1 Hypertension I10 Hypertension type: essential hypertension Depression F32.9 Active/Remission status: remission status unspecified Depression Type: major depressive disorder Major depression recurrence: unspecified whether recurrent COPD (chronic obstructive pulmonary disease) J44.9 COPD type: unspecified COPD Diastolic congestive heart failure I50.32 Heart failure chronicity: chronic Hypercholesteremia E78.00 Diabetes mellitus type 2, insulin dependent E11.9; Z79.4 Mild CAD I25.10 GERD (gastroesophageal reflux disease) K21.9 Esophagitis presence: esophagitis presence not specified (1) Diastolic congestive heart failure Heart failure chronicity: chronic Qualified Code(s): I50.32 - Chronic diastolic (congestive) heart failure (2) Depression Active/Remission status: remission status unspecified Depression Type: major depressive disorder Major depression recurrence: unspecified whether recurrent Qualified Code(s): F32.9 - Major depressive disorder, single episode, unspecified (3) COPD (chronic obstructive pulmonary disease) COPD type: unspecified COPD Qualified Code(s): J44.9 - Chronic obstructive pulmonary disease, unspecified (4) GERD (gastroesophageal reflux disease) Esophagitis presence: esophagitis presence not specified Qualified Code(s): K21.9 - Gastro-esophageal reflux disease without esophagitis (5) Hypertension Hypertension type: essential hypertension Qualified Code(s): I10 - Essential (primary) hypertension
--- NOTE | 2020-06-24 14:32 | Electrocardiogram Report ---
Test Reason : Blood Pressure : / mmHG Vent. Rate : 080 BPM Atrial Rate : 080 BPM P-R Int : 158 ms QRS Dur : 098 ms QT Int : 416 ms P-R-T Axes : 085 -46 043 degrees QTc Int : 479 ms Poor data quality, interpretation may be adversely affected Normal sinus rhythm Left axis deviation Abnormal ECG When compared with ECG of 27-APR-2019 17:25, Questionable change in QRS duration Confirmed by Kody Chávez ([id number]) on 06/24/2020 2:32:26 PM Referred By: REFERRED SELF Confirmed By:Kody Chávez
[2020-06-24] MEDS: ALBUTEROL 0.083% NEBU SOLN 3 ML VIAL INH PRN (17:01)
[2020-06-24] MEDS: ALBUTEROL HFA 8 GM INHALER INH SCH (20:12)
[2020-06-24] MEDS: CITALOPRAM 40 MG TAB PO SCH (20:46)
[2020-06-24] MEDS: ATORVASTATIN 40 MG TAB PO SCH (20:46)
[2020-06-25 06:05] LABS: Basophils # (auto) 0.01 K/uL (0-0.2); Basophils % (auto) 0.2 %; Hematocrit (blood only) 43.2 % (37-47); Hemoglobin 13.5 g/dL (12.0-16.0); Lymphocytes # (auto) 1.56 K/uL (1.2-3.4); Lymphocytes % (auto) 26.4 %; Mean Corpuscular Hemoglobin 27.6 pg (25-34); Mean Corpuscular Hgb Conc 31.3 g/dL (32-36); Mean Corpuscular Volume 88.3 fL (80-100); Mean Platelet Volume 10.5 fL (7.4-10.4); Monocytes # (auto) 0.65 K/uL (0.11-0.59); Neutrophils # (auto) 3.68 K/uL (1.4-6.5); Neutrophils % (auto) 62.4 %; Platelet Count 197 K/uL (130-400); RDW Coefficient of Variation 14.5 % (11.5-14.5); RDW Standard Deviation 47.3 fL (36.4-46.3); Red Blood Count 4.89 M/uL (4.2-5.4)
[2020-06-25 06:38] LABS: BUN Creatinine Ratio 28.7 (10-20); Calcium 8.3 mg/dl (8.5-10.1); Creatinine Clr Calc Pharmacy 60.2 ml/min; Est GFR (African American) 65.1; Est GFR (Non-African American) 56.2; Magnesium 2.5 mg/dl (1.8-2.4); Potassium 3.9 mmol/L (3.5-5.1)
[2020-06-25] MEDS: ALBUTEROL HFA 8 GM INHALER INH SCH ×2 (07:15→19:49)
[2020-06-25] MEDS: ASPIRIN 81 MG ECTAB PO SCH (08:36)
[2020-06-25] MEDS: ENOXAPARIN INJ 40 MG/0.4 ML SYR SQ SCH ×2 (08:37→20:51)
[2020-06-25] MEDS: FLUTICASONE PROPIONATE NA SPR 16 GM BTL SCH ×2 (08:37→20:51)
[2020-06-25] MEDS: DOCUSATE SODIUM 100 MG CAP PO SCH (08:37)
[2020-06-25] MEDS: FUROSEMIDE 40 MG TAB PO SCH (08:38)
[2020-06-25] MEDS: METOPROLOL SUCC 50MG EXT REL TAB PO SCH (08:38)
[2020-06-25] MEDS: FLUTICASONE/VILANTEROL 100/25MCG 14 PUFFS/INHALER INH SCH (08:38)
[2020-06-25] MEDS: GABAPENTIN 600 MG TAB PO SCH ×2 (08:39→20:52)
[2020-06-25] MEDS: PANTOprazole 40 MG TAB PO SCH (08:39)
[2020-06-25] MEDS: POTASSIUM CHLORIDE 10 MEQ TABCR PO SCH (08:39)
[2020-06-25] MEDS: NYSTATIN POWDER 15GM BTL EXT SCH ×2 (08:40→20:52)
[2020-06-25] MEDS: INSULIN GLARGINE SOLOSTAR 100 UNITS/ML 3 ML PEN SC SCH ×2 (08:41→20:40)
[2020-06-25] MEDS: INSULIN ASPART 100 UNITS/ML 3 ML PEN SC SCH ×4 (08:42→20:41)
[2020-06-25] MEDS: COLESTIPOL HCL 1 GM TAB PO SCH ×3 (10:23→22:22)
--- NOTE | 2020-06-25 14:14 | Hospitalist Progress Note ---
Date of Service June 25, 2020 Assessment & Plan (1) COVID-19: 80yo female presenting with Covid-19. Patient is quite stable at present. She is saturating well on room air. No distress. Unfortunately her is currently admitted with Covid-19 infection and her furniture mover has Covid-19 as well. She is unable to care for herself at home. -Monitor SpO2 per unit standard. Supplemental O2 if needed. If saturations drop to <94% on room air will initiate treatment with Dexamethasone, possible Remdesivir -Albuterol QID scheduled HFA, QID PRN nebs -Tylenol PRN pain or fever -Lovenox 40mg BID main symptoms today are nausea and generalized weakness, saturations remain stable on room air no signs of developing pneumonia (2) Hypertension: Blood pressure stable -Continue metoprolol -Continue to monitor (3) Depression: Chronic -Continue Citalopram (4) COPD (chronic obstructive pulmonary disease): Chronic. Patient reports some mild SOB. No wheezing present on exam -Continue Fluticasone/Vilanterol -Continue Albuterol (5) Diastolic congestive heart failure: Patient appear to be well compensated. -Continue Lasix 40mg po qAM -Cautious use of fluids (6) Hypercholesteremia: Chronic -Continue Atorvastatin (7) Diabetes mellitus type 2, insulin dependent: Blood sugar elevated at 208 on admission. Patient was given steroids in the ER so may have some higher blood sugars -Continue Lantus 30u BID -ISS monitor for hypoglycemia, no episodes -Check A1C : 7.0% -Continue Gabapentin for neuropathy (8) Mild CAD: Chronic. Stable. No chest pain at present. Troponin is unremarkable -Continue ASA 81mg po daily -Continue metoprolol -Continue Atorvastatin (9) GERD (gastroesophageal reflux disease): Chronic. Well controlled -Continue Protonix 40mg po daily F/E/N - Heplock. Monitor electrolytes and replete as needed. AHA/CC diet as tolerated Ppx - Lovenox 40 BID Code- DNR/DNI per discussion with patient Dispo - Admit to medical Admission and Anticipated Discharge Date Admission Date: June 23, 2020 Subjective patient doing well, no dyspnea, + dry cough has some epigastric pain, worse with gravy, hurts when she takes a deep breath no fever, vitals stable, no oxygen needed I discussed that her was requiring more oxygen, but trying to titrate down today I discussed that she will need to go to SNF rehab after discharge as her won't be able to provide care for her I updated her daughter Review of Systems Review of Systems: All systems reviewed & are unremarkable except as noted in Subjective Constitutional: + fatigue and + weakness; no fever Respiratory: + cough and + dyspnea; no sputum production Cardiovascular: no chest pain, no palpitations and no edema Gastrointestinal: + abdominal pain (epigastric); no nausea, no vomiting, no constipation and no diarrhea/loose stools Physical Exam Constitutional: well developed, + ill appearing, + obese and + frail appearing; no acute distress Neck: trachea midline, no thyromegaly Respiratory: normal respiratory effort, lungs clear to auscultation Cardiovascular: RRR, no murmur, no edema Gastrointestinal (Abdomen): normal bowel sounds, soft, nontender, no hepatosplenomegaly Musculoskeletal: Head/Neck/Chest: normocephalic, head atraumatic and neck supple Extremities: extremities normal to inspection and + abnormal strength (generalized weakness) Skin: no rashes, warm and dry Neurologic: patellar DTR's 2+ bilat, sensation intact and PERRL, EOMI, accommodation nl, no face palsy, no dysarthria Psychiatric: A+Ox3, euthymic affect Lymphatic: no cervical or axillary lymphadenopathy Results & Data Results & Data ([facility]) Vital Signs (Past 12 Hours) Vital Signs Temp Pulse Resp BP Pulse Ox 06/25/20 08:26 37.0 C 89 19 132/78 96 06/25/20 07:16 79 18 95 Laboratory Results Laboratory Results - last 24 hr 06/24/20 06/24/20 06/24/20 17:42 20:40 20:43 WBC RBC Hgb Hct MCV MCH MCHC RDW Std Deviation RDW Coeff of Erin Plt Count MPV Immature Gran % (Auto) Neut % (Auto) Lymph % (Auto) [place] % (Auto) Eos % (Auto) Baso % (Auto) Neut # (Auto) Lymph # (Auto) [place] # (Auto) Eos # (Auto) Baso # (Auto) Immature Gran # (Auto) Sodium Potassium Chloride Carbon Dioxide Anion Gap BUN Creatinine Est Cr Clr Drug Dosing Est GFR ( Amer) Est GFR (Non-Af Amer) BUN/Creatinine Ratio Glucose POC Glucose 289 H 315 H* 313 H* Calcium Magnesium 06/25/20 06/25/20 06/25/20 00:08 05:17 05:17 WBC 5.90 RBC 4.89 Hgb 13.5 Hct 43.2 MCV 88.3 MCH 27.6 MCHC 31.3 L RDW Std Deviation 47.3 H RDW Coeff of Erin 14.5 Plt Count 197 MPV 10.5 H Immature Gran % (Auto) 0.0 Neut % (Auto) 62.4 Lymph % (Auto) 26.4 [place] % (Auto) 11.0 Eos % (Auto) 0.0 Baso % (Auto) 0.2 Neut # (Auto) 3.68 Lymph # (Auto) 1.56 [place] # (Auto) 0.65 H Eos # (Auto) 0.00 Baso # (Auto) 0.01 Immature Gran # (Auto) 0.00 Sodium 144 Potassium 3.9 Chloride 112 H Carbon Dioxide 28 Anion Gap 4.0 BUN 27 H D Creatinine 0.95 Est Cr Clr Drug Dosing 60.2 Est GFR ( Amer) 65.1 Est GFR (Non-Af Amer) 56.2 BUN/Creatinine Ratio 28.7 H Glucose 198 H POC Glucose 203 H Calcium 8.3 L Magnesium 2.5 H 06/25/20 06/25/20 08:30 12:25 WBC RBC Hgb Hct MCV MCH MCHC RDW Std Deviation RDW Coeff of Erin Plt Count MPV Immature Gran % (Auto) Neut % (Auto) Lymph % (Auto) [place] % (Auto) Eos % (Auto) Baso % (Auto) Neut # (Auto) Lymph # (Auto) [place] # (Auto) Eos # (Auto) Baso # (Auto) Immature Gran # (Auto) Sodium Potassium Chloride Carbon Dioxide Anion Gap BUN Creatinine Est Cr Clr Drug Dosing Est GFR ( Amer) Est GFR (Non-Af Amer) BUN/Creatinine Ratio Glucose POC Glucose 177 H 163 H Calcium Magnesium Medications Administered Current Inpatient Medications Acetaminophen (Acetaminophen 325 Mg Tab) 650 mg PO Q4H PRN PRN Reason: Pain or Fever Stop: 07/24/20 01:55 Last Admin: 06/24/20 12:34 Dose: 650 mg Documented by: Albuterol (Albuterol 0.083% Nebu Soln 3 Ml Vial) 2.5 mg INH QID PRN PRN Reason: Shortness Of Breath Stop: 07/24/20 01:55 Last Admin: 06/24/20 17:01 Dose: 2.5 mg Documented by: Albuterol (Albuterol Hfa 8 Gm Inhaler) 2 puffs INH BIDR ISAIAS Stop: 07/24/20 18:59 Last Admin: 06/25/20 07:15 Dose: 2 puffs Documented by: Aspirin (Aspirin 81 Mg Ectab) 81 mg PO DAILY ISAIAS Stop: 07/24/20 08:59 Last Admin: 06/25/20 08:36 Dose: 81 mg Documented by: Atorvastatin Calcium (Atorvastatin 40 Mg Tab) 40 mg PO HS ISAIAS Stop: 07/24/20 20:59 Last Admin: 06/24/20 20:46 Dose: 40 mg Documented by: Benzonatate (Benzonatate 100 Mg Capsule) 100 mg PO TID PRN PRN Reason: cough Stop: 07/24/20 08:59 Citalopram Hydrobromide (Citalopram 40 Mg Tab) 40 mg PO QPM ISAIAS Stop: 07/24/20 20:59 Last Admin: 06/24/20 20:46 Dose: 40 mg Documented by: Colestipol HCl (Colestipol Hcl 1 Gm Tab) 2 gm PO TID@1000,1500,2200 ISAIAS Stop: 07/24/20 09:59 Last Admin: 06/25/20 10:23 Dose: 2 gm Documented by: Dextrose (Dextrose 50% 50 Ml Syringe) 25 - 50 ml IV UD PRN; Protocol PRN Reason: Hypoglycemia Protocol Stop: 07/24/20 01:55 Docusate Sodium (Docusate Sodium 100 Mg Cap) 200 mg PO DAILY IS[facility]AS Stop: 07/24/20 08:59 Last Admin: 06/25/20 08:37 Dose: Not Given Documented by: Enoxaparin Sodium (Enoxaparin Inj 40 Mg/0.4 Ml Syr) 40 mg SQ Q12H [facility]AIAS Stop: 07/24/20 08:59 Last Admin: 06/25/20 08:37 Dose: 40 mg Documented by: Fluticasone Propionate (Fluticasone Propionate Na Spr 16 Gm Btl) 2 sprays NA Q12 [facility]AS Stop: 07/24/20 08:59 Last Admin: 06/25/20 08:37 Dose: 2 sprays Documented by: Fluticasone/Vilanterol (Fluticasone/Vilanterol 100/25mcg 14 Puffs/Inhaler) 1 puffs INH DAILY [facility] Stop: 07/24/20 08:59 Last Admin: 06/25/20 08:38 Dose: 1 puffs Documented by: Furosemide (Furosemide 40 Mg Tab) 40 mg PO QAM [facility]AS Stop: 07/24/20 08:59 Last Admin: 06/25/20 08:38 Dose: 40 mg Documented by: Gabapentin (Gabapentin 600 Mg Tab) 1,200 mg PO BID IS[facility]AS Stop: 07/24/20 08:59 Last Admin: 06/25/20 08:39 Dose: 1,200 mg Documented by: Glucagon (Glucagon For Inj 1 Mg Vial) 1 mg SQ UD PRN; Protocol PRN Reason: Hypoglycemia Protocol Stop: 07/24/20 01:55 Glucose (Glucose 10 Tabs/Tube) 4 - 8 tabs PO UD PRN; Protocol PRN Reason: Hypoglycemia Protocol Stop: 07/24/20 01:55 Insulin Aspart (Insulin Aspart 100 Units/Ml 3 Ml Pen) 0 units SC ACHS [facility]AS Stop: 07/24/20 07:29 Last Admin: 06/25/20 08:42 Dose: 6 units Documented by: Insulin Glargine (Insulin Glargine Solostar 100 Units/Ml 3 Ml Pen) 30 units SC BID IS[facility]AS Stop: 07/24/20 08:59 Last Admin: 06/25/20 08:41 Dose: 30 units Documented by: Metoprolol Succinate (Metoprolol Succ 50mg Ext Rel Tab) 50 mg PO DAILY ISAIAS Stop: 07/24/20 08:59 Last Admin: 06/25/20 08:38 Dose: 50 mg Documented by: Miscellaneous (Carbohydrates For Hypoglycemia ) 15 - 30 gm PO UD PRN PRN Reason: Hypoglycemia Protocol Stop: 07/24/20 01:55 Nitroglycerin (Nitroglycerin Sl 0.4 Mg/Tab Tab) 0.4 mg SL Q5M PRN PRN Reason: chest pain Stop: 07/24/20 01:55 Nystatin (Nystatin Powder 15gm Btl) 1 appln EXT BID [facility] Stop: 07/24/20 08:59 Last Admin: 06/25/20 08:40 Dose: 1 appln Documented by: Ondansetron HCl (Ondansetron Inj 2 Mg/Ml 2 Ml Vial) 4 mg IV Q6H PRN PRN Reason: Nausea Stop: 07/24/20 01:55 Last Admin: 06/24/20 12:34 Dose: 4 mg Documented by: Pantoprazole Sodium (Pantoprazole 40 Mg Tab) 40 mg PO QAM [facility] Stop: 07/24/20 08:59 Last Admin: 06/25/20 08:39 Dose: 40 mg Documented by: Polyethylene Glycol (Polyethylene (Miralax) 17 Gm Pack) 17 gm PO DAILY PRN PRN Reason: Constipation Stop: 07/24/20 01:55 Potassium Chloride (Potassium Chloride 10 Meq Tabcr) 10 meq PO QAM [facility] Stop: 07/24/20 08:59 Last Admin: 06/25/20 08:39 Dose: 10 meq Documented by: PG Care Time/CCT Total # of Minutes Spent Total Time Spent with Patient: Total time spent is greater than 50% in coordination of care (as documented) at patient's floor/unit and/or counseling patient: Coding Level of Care Code 43470 Subseq Hosp Care Lvl 2 Diagnoses COVID-19 U07.1 Hypertension I10 Hypertension type: essential hypertension Depression F32.9 Depression Type: major depressive disorder Major depression recurrence: unspecified whether recurrent Active/Remission status: remission status unspecified COPD (chronic obstructive pulmonary disease) J44.9 COPD type: unspecified COPD Diastolic congestive heart failure I50.32 Heart failure chronicity: chronic Hypercholesteremia E78.00 Diabetes mellitus type 2, insulin dependent E11.9; Z79.4 Mild CAD I25.10 GERD (gastroesophageal reflux disease) K21.9 Esophagitis presence: esophagitis presence not specified (1) Hypertension Hypertension type: essential hypertension Qualified Code(s): I10 - Essential (primary) hypertension (2) Depression Depression Type: major depressive disorder Major depression recurrence: unspecified whether recurrent Active/Remission status: remission status unspecified Qualified Code(s): F32.9 - Major depressive disorder, single episode, unspecified (3) COPD (chronic obstructive pulmonary disease) COPD type: unspecified COPD Qualified Code(s): J44.9 - Chronic obstructive pulmonary disease, unspecified (4) Diastolic congestive heart failure Heart failure chronicity: chronic Qualified Code(s): I50.32 - Chronic diastolic (congestive) heart failure (5) GERD (gastroesophageal reflux disease) Esophagitis presence: esophagitis presence not specified Qualified Code(s): K21.9 - Gastro-esophageal reflux disease without esophagitis
[2020-06-25] MEDS: ACETAMINOPHEN 325 MG TAB PO PRN (15:38)
[2020-06-25] MEDS ORDERED: KETOROLAC TROMETHAMINE 15 MG/ML VIAL IV ONE (15:44)
[2020-06-25] MEDS: CITALOPRAM 40 MG TAB PO SCH (20:51)
[2020-06-25] MEDS: ATORVASTATIN 40 MG TAB PO SCH (20:51)
[2020-06-26 05:42] LABS: Basophils # (auto) 0.01 K/uL (0-0.2); Basophils % (auto) 0.2 %; Eosinophils # (auto) 0.03 K/uL (0-0.5); Eosinophils % (auto) 0.6 %; Hematocrit (blood only) 39.4 % (37-47); Hemoglobin 12.6 g/dL (12.0-16.0); Lymphocytes # (auto) 1.15 K/uL (1.2-3.4); Lymphocytes % (auto) 21.7 %; Mean Corpuscular Hemoglobin 28.4 pg (25-34); Mean Corpuscular Volume 88.7 fL (80-100); Mean Platelet Volume 9.7 fL (7.4-10.4); Monocytes # (auto) 0.63 K/uL (0.11-0.59); Monocytes % (auto) 11.9 %; Neutrophils # (auto) 3.48 K/uL (1.4-6.5); Neutrophils % (auto) 65.6 %; Platelet Count 188 K/uL (130-400); RDW Coefficient of Variation 14.6 % (11.5-14.5); RDW Standard Deviation 47.5 fL (36.4-46.3); Red Blood Count 4.44 M/uL (4.2-5.4)
[2020-06-26 06:18] LABS: BUN Creatinine Ratio 29.8 (10-20); Creatinine Clr Calc Pharmacy 50.6 ml/min; Est GFR (African American) 52.8; Est GFR (Non-African American) 45.5; Magnesium 2.4 mg/dl (1.8-2.4); Potassium 4.2 mmol/L (3.5-5.1)
[2020-06-26] MEDS: ALBUTEROL HFA 8 GM INHALER INH SCH ×2 (07:59→20:14)
[2020-06-26] MEDS: INSULIN ASPART 100 UNITS/ML 3 ML PEN SC SCH ×4 (08:50→21:34)
[2020-06-26] MEDS: INSULIN GLARGINE SOLOSTAR 100 UNITS/ML 3 ML PEN SC SCH ×2 (08:50→21:35)
[2020-06-26] MEDS: ENOXAPARIN INJ 40 MG/0.4 ML SYR SQ SCH ×2 (08:58→20:18)
[2020-06-26] MEDS: FLUTICASONE PROPIONATE NA SPR 16 GM BTL SCH ×2 (09:00→20:19)
[2020-06-26] MEDS: FLUTICASONE/VILANTEROL 100/25MCG 14 PUFFS/INHALER INH SCH (09:00)
[2020-06-26] MEDS: METOPROLOL SUCC 50MG EXT REL TAB PO SCH (09:02)
[2020-06-26] MEDS: ASPIRIN 81 MG ECTAB PO SCH (09:02)
[2020-06-26] MEDS: DOCUSATE SODIUM 100 MG CAP PO SCH (09:02)
[2020-06-26] MEDS: PANTOprazole 40 MG TAB PO SCH (09:02)
[2020-06-26] MEDS: GABAPENTIN 600 MG TAB PO SCH ×2 (09:02→20:19)
[2020-06-26] MEDS: FUROSEMIDE 40 MG TAB PO SCH (09:02)
[2020-06-26] MEDS: POTASSIUM CHLORIDE 10 MEQ TABCR PO SCH (09:02)
[2020-06-26] MEDS: COLESTIPOL HCL 1 GM TAB PO SCH ×3 (09:03→22:03)
[2020-06-26] MEDS: NYSTATIN POWDER 15GM BTL EXT SCH ×2 (09:06→20:19)
[2020-06-26] MEDS: ACETAMINOPHEN 325 MG TAB PO PRN ×2 (11:08→17:34)
[2020-06-26] MEDS ORDERED: dexAMETHasone 1 MG TAB PO ONE (11:13)
[2020-06-26] MEDS: ALBUTEROL 0.083% NEBU SOLN 3 ML VIAL INH PRN (11:33)
[2020-06-26] MEDS: traMADol HCL 50 MG TABLET PO PRN ×2 (16:20→22:09)
[2020-06-26] MEDS: ATORVASTATIN 40 MG TAB PO SCH (20:18)
[2020-06-26] MEDS: CITALOPRAM 40 MG TAB PO SCH (20:19)
--- NOTE | 2020-06-26 22:33 | Hospitalist Progress Note ---
Date of Service June 26, 2020 Assessment & Plan (1) COVID-19: 80yo female presenting with Covid-19. Patient is quite stable at present. She is saturating well on room air. No distress. Unfortunately her is currently admitted with Covid-19 infection and her tassel clipper has Covid-19 as well. She is unable to care for herself at home. saturations dropped a little, below 94% at one point will start on dexamethasone 6mg PO daily, complete 7-10 days she tends to drop at night, might have undiagnosed KHLOE, could get a nocturnal desat study prior to discharge (2) Hypertension: Blood pressure stable -Continue metoprolol -Continue to monitor (3) Depression: Chronic -Continue Citalopram (4) COPD (chronic obstructive pulmonary disease): Chronic. Patient reports some mild SOB. No wheezing present on exam -Continue Fluticasone/Vilanterol -Continue Albuterol (5) Diastolic congestive heart failure: Patient appear to be well compensated. -Continue Lasix 40mg po qAM (6) Hypercholesteremia: Chronic -Continue Atorvastatin (7) Diabetes mellitus type 2, insulin dependent: Blood sugar elevated at 208 on admission. Patient was given steroids in the ER so may have some higher blood sugars -Continue Lantus 30u BID -ISS monitor for hypoglycemia, no episodes monitor for hyperglycemia now with dexamethasone starting -Check A1C : 7.0% -Continue Gabapentin for neuropathy (8) Mild CAD: Chronic. Stable. No chest pain at present. Troponin is unremarkable -Continue ASA 81mg po daily -Continue metoprolol -Continue Atorvastatin (9) GERD (gastroesophageal reflux disease): Chronic. Well controlled -Continue Protonix 40mg po daily F/E/N - Heplock. AHA/CC diet as tolerated Ppx - Lovenox 40 BID Code- DNR/DNI per discussion with patient Admission and Anticipated Discharge Date Admission Date: June 23, 2020 Subjective patient is doing fine today, had to be on some oxygen over night but daytime saturations are > 95% placed her on dexamethasone since saturations dropped below 94% eating well c/o pain in back which is chronic, she is willing to try some Ultram vitals stable updated her about her , requiring more oxygen, she understands Review of Systems Review of Systems: All systems reviewed & are unremarkable except as noted in Subjective Respiratory: + cough; no dyspnea, no dyspnea on exertion and no sputum production Cardiovascular: no chest pain Musculoskeletal: + back pain Physical Exam Constitutional: well developed and + obese; no acute distress Neck: trachea midline, no thyromegaly Respiratory: normal respiratory effort, lungs clear to auscultation Cardiovascular: RRR, no murmur, no edema Gastrointestinal (Abdomen): normal bowel sounds, soft, nontender, no hepatosplenomegaly Musculoskeletal: Head/Neck/Chest: normocephalic, head atraumatic and neck supple Extremities: extremities normal to inspection and + abnormal strength (generalized weakness) Skin: no rashes, warm and dry Neurologic: patellar DTR's 2+ bilat, sensation intact and PERRL, EOMI, accommodation nl, no face palsy, no dysarthria Psychiatric: A+Ox3, euthymic affect Lymphatic: no cervical or axillary lymphadenopathy Results & Data Results & Data ([facility]) Vital Signs (Past 12 Hours) Vital Signs Temp Pulse Resp BP Pulse Ox Pulse Ox Pulse Ox 06/26/20 22:12 36.9 C 77 18 146/75 H 94 06/26/20 20:14 81 18 95 06/26/20 15:44 93 06/26/20 15:03 37.2 C 83 18 129/78 96 06/26/20 12:58 95 96 06/26/20 11:33 88 18 93 06/26/20 11:11 93 Pulse Ox 06/26/20 22:12 06/26/20 20:14 06/26/20 15:44 06/26/20 15:03 06/26/20 12:58 92 06/26/20 11:33 06/26/20 11:11 Laboratory Results Laboratory Results - last 24 hr 06/26/20 06/26/20 06/26/20 05:23 05:23 08:36 WBC 5.30 RBC 4.44 Hgb 12.6 Hct 39.4 MCV 88.7 MCH 28.4 MCHC 32.0 RDW Std Deviation 47.5 H RDW Coeff of Erin 14.6 H Plt Count 188 MPV 9.7 Immature Gran % (Auto) 0.0 Neut % (Auto) 65.6 Lymph % (Auto) 21.7 [place] % (Auto) 11.9 Eos % (Auto) 0.6 Baso % (Auto) 0.2 Neut # (Auto) 3.48 Lymph # (Auto) 1.15 L [place] # (Auto) 0.63 H Eos # (Auto) 0.03 Baso # (Auto) 0.01 Immature Gran # (Auto) 0.00 Sodium 142 Potassium 4.2 Chloride 111 H Carbon Dioxide 28 Anion Gap 3.0 BUN 34 H Creatinine 1.13 Est Cr Clr Drug Dosing 50.6 Est GFR ( Amer) 52.8 Est GFR (Non-Af Amer) 45.5 BUN/Creatinine Ratio 29.8 H Glucose 145 H POC Glucose 167 H Calcium 8.0 L Magnesium 2.4 06/26/20 06/26/20 06/26/20 12:32 17:37 20:25 WBC RBC Hgb Hct MCV MCH MCHC RDW Std Deviation RDW Coeff of Erin Plt Count MPV Immature Gran % (Auto) Neut % (Auto) Lymph % (Auto) [place] % (Auto) Eos % (Auto) Baso % (Auto) Neut # (Auto) Lymph # (Auto) [place] # (Auto) Eos # (Auto) Baso # (Auto) Immature Gran # (Auto) Sodium Potassium Chloride Carbon Dioxide Anion Gap BUN Creatinine Est Cr Clr Drug Dosing Est GFR ( Amer) Est GFR (Non-Af Amer) BUN/Creatinine Ratio Glucose POC Glucose 189 H 242 H 246 H Calcium Magnesium Medications Administered Current Inpatient Medications Acetaminophen (Acetaminophen 325 Mg Tab) 650 mg PO Q4H PRN PRN Reason: Pain or Fever Stop: 07/24/20 01:55 Last Admin: 06/26/20 17:34 Dose: 650 mg Documented by: Albuterol (Albuterol 0.083% Nebu Soln 3 Ml Vial) 2.5 mg INH QID PRN PRN Reason: Shortness Of Breath Stop: 07/24/20 01:55 Last Admin: 06/26/20 11:33 Dose: 2.5 mg Documented by: Albuterol (Albuterol Hfa 8 Gm Inhaler) 2 puffs INH BIDR [facility] Stop: 07/24/20 18:59 Last Admin: 06/26/20 20:14 Dose: 2 puffs Documented by: Aspirin (Aspirin 81 Mg Ectab) 81 mg PO DAILY [facility] Stop: 07/24/20 08:59 Last Admin: 06/26/20 09:02 Dose: 81 mg Documented by: Atorvastatin Calcium (Atorvastatin 40 Mg Tab) 40 mg PO HS [facility] Stop: 07/24/20 20:59 Last Admin: 06/26/20 20:18 Dose: 40 mg Documented by: Benzonatate (Benzonatate 100 Mg Capsule) 100 mg PO TID PRN PRN Reason: cough Stop: 07/24/20 08:59 Last Admin: 06/25/20 16:44 Dose: 100 mg Documented by: Citalopram Hydrobromide (Citalopram 40 Mg Tab) 40 mg PO QPM [facility] Stop: 07/24/20 20:59 Last Admin: 06/26/20 20:19 Dose: 40 mg Documented by: Colestipol HCl (Colestipol Hcl 1 Gm Tab) 2 gm PO TID@1000,1500,2200 [facility] Stop: 07/24/20 09:59 Last Admin: 06/26/20 22:03 Dose: 2 gm Documented by: Dextrose (Dextrose 50% 50 Ml Syringe) 25 - 50 ml IV UD PRN; Protocol PRN Reason: Hypoglycemia Protocol Stop: 07/24/20 01:55 Docusate Sodium (Docusate Sodium 100 Mg Cap) 200 mg PO DAILY [facility] Stop: 07/24/20 08:59 Last Admin: 06/26/20 09:02 Dose: 200 mg Documented by: Enoxaparin Sodium (Enoxaparin Inj 40 Mg/0.4 Ml Syr) 40 mg SQ Q12H [facility] Stop: 07/24/20 08:59 Last Admin: 06/26/20 20:18 Dose: 40 mg Documented by: Fluticasone Propionate (Fluticasone Propionate Na Spr 16 Gm Btl) 2 sprays NA Q12 [facility] Stop: 07/24/20 08:59 Last Admin: 06/26/20 20:19 Dose: 2 sprays Documented by: Fluticasone/Vilanterol (Fluticasone/Vilanterol 100/25mcg 14 Puffs/Inhaler) 1 puffs INH DAILY [facility] Stop: 07/24/20 08:59 Last Admin: 06/26/20 09:00 Dose: 1 puffs Documented by: Furosemide (Furosemide 40 Mg Tab) 40 mg PO QAM [facility] Stop: 07/24/20 08:59 Last Admin: 06/26/20 09:02 Dose: 40 mg Documented by: Gabapentin (Gabapentin 600 Mg Tab) 1,200 mg PO BID [facility] Stop: 07/24/20 08:59 Last Admin: 06/26/20 20:19 Dose: 1,200 mg Documented by: Glucagon (Glucagon For Inj 1 Mg Vial) 1 mg SQ UD PRN; Protocol PRN Reason: Hypoglycemia Protocol Stop: 07/24/20 01:55 Glucose (Glucose 10 Tabs/Tube) 4 - 8 tabs PO UD PRN; Protocol PRN Reason: Hypoglycemia Protocol Stop: 07/24/20 01:55 Insulin Aspart (Insulin Aspart 100 Units/Ml 3 Ml Pen) 0 units SC ACHS [facility] Stop: 07/24/20 07:29 Last Admin: 06/26/20 21:34 Dose: 5 units Documented by: Insulin Glargine (Insulin Glargine Solostar 100 Units/Ml 3 Ml Pen) 30 units SC BID [facility] Stop: 07/24/20 08:59 Last Admin: 06/26/20 21:35 Dose: 30 units Documented by: Metoprolol Succinate (Metoprolol Succ 50mg Ext Rel Tab) 50 mg PO DAILY [facility] Stop: 07/24/20 08:59 Last Admin: 06/26/20 09:02 Dose: 50 mg Documented by: Miscellaneous (Carbohydrates For Hypoglycemia ) 15 - 30 gm PO UD PRN PRN Reason: Hypoglycemia Protocol Stop: 07/24/20 01:55 Nitroglycerin (Nitroglycerin Sl 0.4 Mg/Tab Tab) 0.4 mg SL Q5M PRN PRN Reason: chest pain Stop: 07/24/20 01:55 Nystatin (Nystatin Powder 15gm Btl) 1 appln EXT BID [facility] Stop: 07/24/20 08:59 Last Admin: 06/26/20 20:19 Dose: 1 appln Documented by: Ondansetron HCl (Ondansetron Inj 2 Mg/Ml 2 Ml Vial) 4 mg IV Q6H PRN PRN Reason: Nausea Stop: 07/24/20 01:55 Last Admin: 06/24/20 12:34 Dose: 4 mg Documented by: Pantoprazole Sodium (Pantoprazole 40 Mg Tab) 40 mg PO QAM [facility] Stop: 07/24/20 08:59 Last Admin: 06/26/20 09:02 Dose: 40 mg Documented by: Polyethylene Glycol (Polyethylene (Miralax) 17 Gm Pack) 17 gm PO DAILY PRN PRN Reason: Constipation Stop: 07/24/20 01:55 Potassium Chloride (Potassium Chloride 10 Meq Tabcr) 10 meq PO QAM [facility] Stop: 07/24/20 08:59 Last Admin: 06/26/20 09:02 Dose: 10 meq Documented by: Tramadol HCl (Tramadol Hcl 50 Mg Tablet) 50 mg PO Q6H PRN PRN Reason: Pain Stop: 07/26/20 15:57 Last Admin: 06/26/20 22:09 Dose: 50 mg Documented by: PG Care Time/CCT Total # of Minutes Spent Total Time Spent with Patient: Total time spent is greater than 50% in coordination of care (as documented) at patient's floor/unit and/or counseling patient: Coding Level of Care Code 48184 Subseq Hosp Care Lvl 2 Diagnoses COVID-19 U07.1 Hypertension I10 Hypertension type: essential hypertension Depression F32.9 Active/Remission status: remission status unspecified Depression Type: major depressive disorder Major depression recurrence: unspecified whether recurrent COPD (chronic obstructive pulmonary disease) J44.9 COPD type: unspecified COPD Diastolic congestive heart failure I50.32 Heart failure chronicity: chronic Hypercholesteremia E78.00 Diabetes mellitus type 2, insulin dependent E11.9; Z79.4 Mild CAD I25.10 GERD (gastroesophageal reflux disease) K21.9 Esophagitis presence: esophagitis presence not specified (1) Diastolic congestive heart failure Heart failure chronicity: chronic Qualified Code(s): I50.32 - Chronic diastolic (congestive) heart failure (2) Depression Active/Remission status: remission status unspecified Depression Type: major depressive disorder Major depression recurrence: unspecified whether recurrent Qualified Code(s): F32.9 - Major depressive disorder, single episode, unspecified (3) COPD (chronic obstructive pulmonary disease) COPD type: unspecified COPD Qualified Code(s): J44.9 - Chronic obstructive pulmonary disease, unspecified (4) GERD (gastroesophageal reflux disease) Esophagitis presence: esophagitis presence not specified Qualified Code(s): K21.9 - Gastro-esophageal reflux disease without esophagitis (5) Hypertension Hypertension type: essential hypertension Qualified Code(s): I10 - Essential (primary) hypertension
[2020-06-27] MEDS: ALBUTEROL HFA 8 GM INHALER INH SCH ×2 (07:01→19:26)
[2020-06-27] MEDS: COLESTIPOL HCL 1 GM TAB PO SCH ×3 (09:08→21:49)
[2020-06-27] MEDS: PANTOprazole 40 MG TAB PO SCH (09:08)
[2020-06-27] MEDS: FUROSEMIDE 40 MG TAB PO SCH (09:08)
[2020-06-27] MEDS: ASPIRIN 81 MG ECTAB PO SCH (09:08)
[2020-06-27] MEDS: GABAPENTIN 600 MG TAB PO SCH ×2 (09:08→20:52)
[2020-06-27] MEDS: ACETAMINOPHEN 325 MG TAB PO PRN ×2 (09:09→15:37)
[2020-06-27] MEDS: POTASSIUM CHLORIDE 10 MEQ TABCR PO SCH (09:09)
[2020-06-27] MEDS: METOPROLOL SUCC 50MG EXT REL TAB PO SCH (09:09)
[2020-06-27] MEDS: traMADol HCL 50 MG TABLET PO PRN ×2 (09:09→15:38)
[2020-06-27] MEDS: DOCUSATE SODIUM 100 MG CAP PO SCH (09:09)
[2020-06-27] MEDS: FLUTICASONE/VILANTEROL 100/25MCG 14 PUFFS/INHALER INH SCH (09:10)
[2020-06-27] MEDS: ENOXAPARIN INJ 40 MG/0.4 ML SYR SQ SCH ×2 (09:10→20:53)
[2020-06-27] MEDS: FLUTICASONE PROPIONATE NA SPR 16 GM BTL SCH ×2 (09:10→20:53)
[2020-06-27] MEDS: NYSTATIN POWDER 15GM BTL EXT SCH ×2 (09:11→20:53)
[2020-06-27] MEDS: INSULIN ASPART 100 UNITS/ML 3 ML PEN SC SCH ×4 (09:20→20:54)
[2020-06-27] MEDS: INSULIN GLARGINE SOLOSTAR 100 UNITS/ML 3 ML PEN SC SCH ×2 (09:21→21:49)
--- NOTE | 2020-06-27 10:07 | Hospitalist Progress Note ---
Date of Service June 27, 2020 Assessment & Plan (1) COVID-19: 80yo female presenting with Covid-19. Patient is quite stable at present. She is saturating well on room air. No distress. Unfortunately her is currently admitted with Covid-19 infection and her inside wirer has Covid-19 as well. She is unable to care for herself at home. saturations dropped a little, below 94% at one point will start on dexamethasone 6mg PO daily, complete 7-10 days, day 2 today she tends to drop at night, might have undiagnosed KHLOE, could get a nocturnal desat study prior to discharge (2) Hypertension: Blood pressure stable -Continue metoprolol -Continue to monitor (3) Depression: Chronic -Continue Citalopram (4) COPD (chronic obstructive pulmonary disease): Chronic. Patient reports some mild SOB. No wheezing present on exam -Continue Fluticasone/Vilanterol -Continue Albuterol (5) Diastolic congestive heart failure: Patient appear to be well compensated. -Continue Lasix 40mg po qAM (6) Hypercholesteremia: Chronic -Continue Atorvastatin (7) Diabetes mellitus type 2, insulin dependent: Blood sugar elevated at 208 on admission. Patient was given steroids in the ER so may have some higher blood sugars -Continue Lantus 30u BID -ISS monitor for hypoglycemia, no episodes monitor for hyperglycemia now with dexamethasone starting -Check A1C : 7.0% -Continue Gabapentin for neuropathy (8) Mild CAD: Chronic. Stable. No chest pain at present. Troponin is unremarkable -Continue ASA 81mg po daily -Continue metoprolol -Continue Atorvastatin (9) GERD (gastroesophageal reflux disease): Chronic. Well controlled -Continue Protonix 40mg po daily F/E/N - Heplock. AHA/CC diet as tolerated Ppx - Lovenox 40 BID Code- DNR/DNI per discussion with patient Admission and Anticipated Discharge Date Admission Date: June 23, 2020 Subjective patient is breathing well, 97% room air, cough that is non productive ate well today back pain better with Genevam spoke with her about her needing intubated assured her that I will keep her updated on his status I spoke with her daughter over the phone Review of Systems Review of Systems: All systems reviewed & are unremarkable except as noted in Subjective Physical Exam Constitutional: well developed and + obese; no acute distress Neck: trachea midline, no thyromegaly Respiratory: normal respiratory effort, lungs clear to auscultation Cardiovascular: RRR, no murmur, no edema Gastrointestinal (Abdomen): normal bowel sounds, soft, nontender, no h epatosplenomegaly Musculoskeletal: Head/Neck/Chest: normocephalic, head atraumatic and neck supple Extremities: extremities normal to inspection and + abnormal strength (generalized weakness) Skin: no rashes, warm and dry Neurologic: patellar DTR's 2+ bilat, sensation intact and PERRL, EOMI, accommodation nl, no face palsy, no dysarthria Psychiatric: A+Ox3, euthymic affect Lymphatic: no cervical or axillary lymphadenopathy Results & Data Results & Data ([facility]) Vital Signs (Past 12 Hours) Vital Signs Temp Pulse Resp BP Pulse Ox Pulse Ox 06/27/20 08:50 36.5 C 70 18 156/79 H 95 06/27/20 07:03 65 18 98 06/27/20 00:08 94 06/26/20 22:12 36.9 C 77 18 146/75 H 94 Laboratory Results Laboratory Results - last 24 hr 06/26/20 06/26/20 06/26/20 12:32 17:37 20:25 POC Glucose 189 H 242 H 246 H 06/27/20 08:53 POC Glucose 200 H Medications Administered Current Inpatient Medications Acetaminophen (Acetaminophen 325 Mg Tab) 650 mg PO Q4H PRN PRN Reason: Pain or Fever Stop: 07/24/20 01:55 Last Admin: 06/27/20 09:09 Dose: 650 mg Documented by: Albuterol (Albuterol 0.083% Nebu Soln 3 Ml Vial) 2.5 mg INH QID PRN PRN Reason: Shortness Of Breath Stop: 07/24/20 01:55 Last Admin: 06/26/20 11:33 Dose: 2.5 mg Documented by: Albuterol (Albuterol Hfa 8 Gm Inhaler) 2 puffs INH BIDR [facility] Stop: 07/24/20 18:59 Last Admin: 06/27/20 07:01 Dose: 2 puffs Documented by: Aspirin (Aspirin 81 Mg Ectab) 81 mg PO DAILY [facility] Stop: 07/24/20 08:59 Last Admin: 06/27/20 09:08 Dose: 81 mg Documented by: Atorvastatin Calcium (Atorvastatin 40 Mg Tab) 40 mg PO HS [facility] Stop: 07/24/20 20:59 Last Admin: 06/26/20 20:18 Dose: 40 mg Documented by: Benzonatate (Benzonatate 100 Mg Capsule) 100 mg PO TID PRN PRN Reason: cough Stop: 07/24/20 08:59 Last Admin: 06/25/20 16:44 Dose: 100 mg Documented by: Citalopram Hydrobromide (Citalopram 40 Mg Tab) 40 mg PO QPM [facility] Stop: 07/24/20 20:59 Last Admin: 06/26/20 20:19 Dose: 40 mg Documented by: Colestipol HCl (Colestipol Hcl 1 Gm Tab) 2 gm PO TID@1000,1500,2200 [facility] Stop: 07/24/20 09:59 Last Admin: 06/27/20 09:08 Dose: 2 gm Documented by: Dextrose (Dextrose 50% 50 Ml Syringe) 25 - 50 ml IV UD PRN; Protocol PRN Reason: Hypoglycemia Protocol Stop: 07/24/20 01:55 Docusate Sodium (Docusate Sodium 100 Mg Cap) 200 mg PO DAILY [facility] Stop: 07/24/20 08:59 Last Admin: 06/27/20 09:09 Dose: 200 mg Documented by: Enoxaparin Sodium (Enoxaparin Inj 40 Mg/0.4 Ml Syr) 40 mg SQ Q12H [facility] Stop: 07/24/20 08:59 Last Admin: 06/27/20 09:10 Dose: 40 mg Documented by: Fluticasone Propionate (Fluticasone Propionate Na Spr 16 Gm Btl) 2 sprays NA Q12 [facility] Stop: 07/24/20 08:59 Last Admin: 06/27/20 09:10 Dose: 2 sprays Documented by: Fluticasone/Vilanterol (Fluticasone/Vilanterol 100/25mcg 14 Puffs/Inhaler) 1 puffs INH DAILY [facility] Stop: 07/24/20 08:59 Last Admin: 06/27/20 09:10 Dose: 1 puffs Documented by: Furosemide (Furosemide 40 Mg Tab) 40 mg PO QAM [facility] Stop: 07/24/20 08:59 Last Admin: 06/27/20 09:08 Dose: 40 mg Documented by: Gabapentin (Gabapentin 600 Mg Tab) 1,200 mg PO BID [facility] Stop: 07/24/20 08:59 Last Admin: 06/27/20 09:08 Dose: 1,200 mg Documented by: Glucagon (Glucagon For Inj 1 Mg Vial) 1 mg SQ UD PRN; Protocol PRN Reason: Hypoglycemia Protocol Stop: 07/24/20 01:55 Glucose (Glucose 10 Tabs/Tube) 4 - 8 tabs PO UD PRN; Protocol PRN Reason: Hypoglycemia Protocol Stop: 07/24/20 01:55 Insulin Aspart (Insulin Aspart 100 Units/Ml 3 Ml Pen) 0 units SC ACHS [facility] Stop: 07/24/20 07:29 Last Admin: 06/27/20 09:20 Dose: 6 units Documented by: Insulin Glargine (Insulin Glargine Solostar 100 Units/Ml 3 Ml Pen) 30 units SC BID [facility] Stop: 07/24/20 08:59 Last Admin: 06/27/20 09:21 Dose: 30 units Documented by: Metoprolol Succinate (Metoprolol Succ 50mg Ext Rel Tab) 50 mg PO DAILY [facility] Stop: 07/24/20 08:59 Last Admin: 06/27/20 09:09 Dose: 50 mg Documented by: Miscellaneous (Carbohydrates For Hypoglycemia ) 15 - 30 gm PO UD PRN PRN Reason: Hypoglycemia Protocol Stop: 07/24/20 01:55 Nitroglycerin (Nitroglycerin Sl 0.4 Mg/Tab Tab) 0.4 mg SL Q5M PRN PRN Reason: chest pain Stop: 07/24/20 01:55 Nystatin (Nystatin Powder 15gm Btl) 1 appln EXT BID [facility] Stop: 07/24/20 08:59 Last Admin: 06/27/20 09:11 Dose: 1 appln Documented by: Ondansetron HCl (Ondansetron Inj 2 Mg/Ml 2 Ml Vial) 4 mg IV Q6H PRN PRN Reason: Nausea Stop: 07/24/20 01:55 Last Admin: 06/24/20 12:34 Dose: 4 mg Documented by: Pantoprazole Sodium (Pantoprazole 40 Mg Tab) 40 mg PO QAM [facility] Stop: 07/24/20 08:59 Last Admin: 06/27/20 09:08 Dose: 40 mg Documented by: Polyethylene Glycol (Polyethylene (Miralax) 17 Gm Pack) 17 gm PO DAILY PRN PRN Reason: Constipation Stop: 07/24/20 01:55 Potassium Chloride (Potassium Chloride 10 Meq Tabcr) 10 meq PO QAM [facility] Stop: 07/24/20 08:59 Last Admin: 06/27/20 09:09 Dose: 10 meq Documented by: Tramadol HCl (Tramadol Hcl 50 Mg Tablet) 50 mg PO Q6H PRN PRN Reason: Pain Stop: 07/26/20 15:57 Last Admin: 06/27/20 09:09 Dose: 50 mg Documented by: PG Care Time/CCT Total # of Minutes Spent Total Time Spent with Patient: Total time spent is greater than 50% in coordination of care (as documented) at patient's floor/unit and/or counseling patient: Coding Level of Care Code 64302 Subseq Hosp Care Lvl 2 Diagnoses COVID-19 U07.1 Hypertension I10 Hypertension type: essential hypertension Depression F32.9 Depression Type: major depressive disorder Major depression recurrence: unspecified whether recurrent Active/Remission status: remission status unspecified COPD (chronic obstructive pulmonary disease) J44.9 COPD type: unspecified COPD Diastolic congestive heart failure I50.32 Heart failure chronicity: chronic Hypercholesteremia E78.00 Diabetes mellitus type 2, insulin dependent E11.9; Z79.4 Mild CAD I25.10 GERD (gastroesophageal reflux disease) K21.9 Esophagitis presence: esophagitis presence not specified (1) Hypertension Hypertension type: essential hypertension Qualified Code(s): I10 - Essential (primary) hypertension (2) Depression Depression Type: major depressive disorder Major depression recurrence: unspecified whether recurrent Active/Remission status: remission status unspecified Qualified Code(s): F32.9 - Major depressive disorder, single episode, unspecified (3) COPD (chronic obstructive pulmonary disease) COPD type: unspecified COPD Qualified Code(s): J44.9 - Chronic obstructive pulmonary disease, unspecified (4) Diastolic congestive heart failure Heart failure chronicity: chronic Qualified Code(s): I50.32 - Chronic diastolic (congestive) heart failure (5) GERD (gastroesophageal reflux disease) Esophagitis presence: esophagitis presence not specified Qualified Code(s): K21.9 - Gastro-esophageal reflux disease without esophagitis
[2020-06-27] MEDS ORDERED: dexAMETHasone 4 MG TAB PO ONE (18:45)
[2020-06-27] MEDS: ATORVASTATIN 40 MG TAB PO SCH (20:52)
[2020-06-27] MEDS: CITALOPRAM 40 MG TAB PO SCH (20:52)
[2020-06-28] MEDS: ALBUTEROL HFA 8 GM INHALER INH SCH ×2 (07:57→19:58)
[2020-06-28] MEDS: dexAMETHasone 4 MG TAB PO SCH (08:40)
[2020-06-28] MEDS: ASPIRIN 81 MG ECTAB PO SCH (08:41)
[2020-06-28] MEDS: DOCUSATE SODIUM 100 MG CAP PO SCH (08:42)
[2020-06-28] MEDS: FUROSEMIDE 40 MG TAB PO SCH (08:43)
[2020-06-28] MEDS: METOPROLOL SUCC 50MG EXT REL TAB PO SCH (08:43)
[2020-06-28] MEDS: GABAPENTIN 600 MG TAB PO SCH ×2 (08:43→20:37)
[2020-06-28] MEDS: NYSTATIN POWDER 15GM BTL EXT SCH ×2 (08:44→20:38)
[2020-06-28] MEDS: PANTOprazole 40 MG TAB PO SCH (08:44)
[2020-06-28] MEDS: POTASSIUM CHLORIDE 10 MEQ TABCR PO SCH (08:44)
[2020-06-28] MEDS: FLUTICASONE PROPIONATE NA SPR 16 GM BTL SCH ×2 (08:45→20:37)
[2020-06-28] MEDS: ENOXAPARIN INJ 40 MG/0.4 ML SYR SQ SCH ×2 (08:46→20:38)
[2020-06-28] MEDS: FLUTICASONE/VILANTEROL 100/25MCG 14 PUFFS/INHALER INH SCH (08:46)
[2020-06-28] MEDS: INSULIN GLARGINE SOLOSTAR 100 UNITS/ML 3 ML PEN SC SCH ×2 (08:49→20:36)
[2020-06-28] MEDS: INSULIN ASPART 100 UNITS/ML 3 ML PEN SC SCH ×4 (08:51→20:37)
[2020-06-28] MEDS ORDERED: LORazepam 0.5 MG TAB PO STA (09:18)
[2020-06-28] MEDS: COLESTIPOL HCL 1 GM TAB PO SCH ×3 (11:20→22:30)
--- NOTE | 2020-06-28 13:37 | Electrocardiogram Report ---
Test Reason : Blood Pressure : / mmHG Vent. Rate : 092 BPM Atrial Rate : 092 BPM P-R Int : 148 ms QRS Dur : 104 ms QT Int : 382 ms P-R-T Axes : 072 -46 086 degrees QTc Int : 472 ms Sinus rhythm with occasional Premature ventricular complexes Left axis deviation Abnormal ECG When compared with ECG of 23-JUN-2020 20:22, Premature ventricular complexes are now Present Confirmed by Kody Chávez ([id number]) on 06/28/2020 1:36:47 PM Referred By: REFERRED SELF Confirmed By:Kody Chávez
[2020-06-28] MEDS ORDERED: LORazepam 0.5 MG TAB PO PRN (14:47)
--- NOTE | 2020-06-28 14:47 | Hospitalist Progress Note ---
Date of Service June 28, 2020 Assessment & Plan (1) COVID-19: 80yo female presenting with Covid-19. Patient is quite stable at present. She is saturating well on room air. No distress. Unfortunately her is currently admitted with Covid-19 infection and her informatics coordinator has Covid-19 as well. She is unable to care for herself at home. saturations dropped a little, below 94% intermittently continue dexamethasone 6mg PO daily, complete 7-10 days, day 3 today she tends to drop at night, might have undiagnosed KHLOE, could get a nocturnal desat study prior to discharge (2) Hypertension: Blood pressure stable -Continue metoprolol -Continue to monitor (3) Depression: Chronic -Continue Citalopram (4) COPD (chronic obstructive pulmonary disease): Chronic. Patient reports some mild SOB. No wheezing present on exam -Continue Fluticasone/Vilanterol -Continue Albuterol (5) Diastolic congestive heart failure: Patient appear to be well compensated. -Continue Lasix 40mg po qAM (6) Hypercholesteremia: Chronic -Continue Atorvastatin (7) Diabetes mellitus type 2, insulin dependent: Blood sugar elevated at 208 on admission. Patient was given steroids in the ER so may have some higher blood sugars -Continue Lantus 30u BID -ISS monitor for hypoglycemia, no episodes monitor for hyperglycemia now with dexamethasone starting -Check A1C : 7.0% -Continue Gabapentin for neuropathy (8) Mild CAD: Chronic. Stable. Troponin is unremarkable on admission -Continue ASA 81mg po daily -Continue metoprolol -Continue Atorvastatin some chest pain this morning, no ischemic changes on EKG at that time relieved with Ativan, more likely due to anxiety around her 's illness (9) GERD (gastroesophageal reflux disease): Chronic. Well controlled -Continue Protonix 40mg po daily F/E/N - Heplock. AHA/CC diet as tolerated Ppx - Lovenox 40 BID Code- DNR/DNI per discussion with patient Admission and Anticipated Discharge Date Admission Date: June 23, 2020 Subjective patient had some chest pain and felt anxious this morning, thinking about her and worried EKG without any ischemic changes gave her Ativan 0.5mg PO and she felt better, more relaxed eating well today, she was OOB in the chair I updated her about her in room 201, intubated and prone today Review of Systems Review of Systems: All systems reviewed & are unremarkable except as noted in Subjective Physical Exam Constitutional: well developed and + obese; no acute distress Neck: trachea midline, no thyromegaly Respiratory: normal respiratory effort, lungs clear to auscultation Cardiovascular: RRR, no murmur, no edema Gastrointestinal (Abdomen): normal bowel sounds, soft, nontender, no hepatosplenomegaly Musculoskeletal: Head/Neck/Chest: normocephalic, head atraumatic and neck supple Extremities: extremities normal to inspection and + abnormal strength (generalized weakness) Skin: no rashes, warm and dry Neurologic: patellar DTR's 2+ bilat, sensation intact and PERRL, EOMI, accommodation nl, no face palsy, no dysarthria Psychiatric: A+Ox3, euthymic affect Lymphatic: no cervical or axillary lymphadenopathy Results & Data Results & Data ([facility]) Vital Signs (Past 12 Hours) Vital Signs Temp Pulse Resp BP Pulse Ox 06/28/20 07:58 92 H 18 97 06/28/20 07:09 37.2 C 87 18 160/75 H 97 Laboratory Results Laboratory Results - last 24 hr 06/27/20 06/27/20 06/28/20 17:42 20:51 08:32 POC Glucose 89 111 H 107 H 06/28/20 12:28 POC Glucose 183 H Medications Administered Current Inpatient Medications Acetaminophen (Acetaminophen 325 Mg Tab) 650 mg PO Q4H PRN PRN Reason: Pain or Fever Stop: 07/24/20 01:55 Last Admin: 06/27/20 15:37 Dose: 650 mg Documented by: Albuterol (Albuterol 0.083% Nebu Soln 3 Ml Vial) 2.5 mg INH QID PRN PRN Reason: Shortness Of Breath Stop: 07/24/20 01:55 Last Admin: 06/26/20 11:33 Dose: 2.5 mg Documented by: Albuterol (Albuterol Hfa 8 Gm Inhaler) 2 puffs INH BIDR [facility] Stop: 07/24/20 18:59 Last Admin: 06/28/20 07:57 Dose: 2 puffs Documented by: Aspirin (Aspirin 81 Mg Ectab) 81 mg PO DAILY [facility] Stop: 07/24/20 08:59 Last Admin: 06/28/20 08:41 Dose: 81 mg Documented by: Atorvastatin Calcium (Atorvastatin 40 Mg Tab) 40 mg PO HS [facility] Stop: 07/24/20 20:59 Last Admin: 06/27/20 20:52 Dose: 40 mg Documented by: Benzonatate (Benzonatate 100 Mg Capsule) 100 mg PO TID PRN PRN Reason: cough Stop: 07/24/20 08:59 Last Admin: 06/25/20 16:44 Dose: 100 mg Documented by: Citalopram Hydrobromide (Citalopram 40 Mg Tab) 40 mg PO QPM [facility] Stop: 07/24/20 20:59 Last Admin: 06/27/20 20:52 Dose: 40 mg Documented by: Colestipol HCl (Colestipol Hcl 1 Gm Tab) 2 gm PO TID@1000,1500,2200 [facility] Stop: 07/24/20 09:59 Last Admin: 06/28/20 11:20 Dose: 2 gm Documented by: Dexamethasone (Dexamethasone 4 Mg Tab) 6 mg PO QAM [facility] Stop: 07/28/20 08:59 Last Admin: 06/28/20 08:40 Dose: 6 mg Documented by: Dextrose (Dextrose 50% 50 Ml Syringe) 25 - 50 ml IV UD PRN; Protocol PRN Reason: Hypoglycemia Protocol Stop: 07/24/20 01:55 Docusate Sodium (Docusate Sodium 100 Mg Cap) 200 mg PO DAILY [facility] Stop: 07/24/20 08:59 Last Admin: 06/28/20 08:42 Dose: 200 mg Documented by: Enoxaparin Sodium (Enoxaparin Inj 40 Mg/0.4 Ml Syr) 40 mg SQ Q12H [facility] Stop: 07/24/20 08:59 Last Admin: 06/28/20 08:46 Dose: 40 mg Documented by: Fluticasone Propionate (Fluticasone Propionate Na Spr 16 Gm Btl) 2 sprays NA Q12 [facility] Stop: 07/24/20 08:59 Last Admin: 06/28/20 08:45 Dose: 2 sprays Documented by: Fluticasone/Vilanterol (Fluticasone/Vilanterol 100/25mcg 14 Puffs/Inhaler) 1 puffs INH DAILY [facility] Stop: 07/24/20 08:59 Last Admin: 06/28/20 08:46 Dose: 1 puffs Documented by: Furosemide (Furosemide 40 Mg Tab) 40 mg PO QAM [facility] Stop: 07/24/20 08:59 Last Admin: 06/28/20 08:43 Dose: 40 mg Documented by: Gabapentin (Gabapentin 600 Mg Tab) 1,200 mg PO BID [facility] Stop: 07/24/20 08:59 Last Admin: 06/28/20 08:43 Dose: 1,200 mg Documented by: Glucagon (Glucagon For Inj 1 Mg Vial) 1 mg SQ UD PRN; Protocol PRN Reason: Hypoglycemia Protocol Stop: 07/24/20 01:55 Glucose (Glucose 10 Tabs/Tube) 4 - 8 tabs PO UD PRN; Protocol PRN Reason: Hypoglycemia Protocol Stop: 07/24/20 01:55 Insulin Aspart (Insulin Aspart 100 Units/Ml 3 Ml Pen) 0 units SC ACHS [facility] Stop: 07/24/20 07:29 Last Admin: 06/28/20 12:38 Dose: 6 units Documented by: Insulin Glargine (Insulin Glargine Solostar 100 Units/Ml 3 Ml Pen) 30 units SC BID [facility] Stop: 07/24/20 08:59 Last Admin: 06/28/20 08:49 Dose: 30 units Documented by: Metoprolol Succinate (Metoprolol Succ 50mg Ext Rel Tab) 50 mg PO DAILY [facility] Stop: 07/24/20 08:59 Last Admin: 06/28/20 08:43 Dose: 50 mg Documented by: Miscellaneous (Carbohydrates For Hypoglycemia ) 15 - 30 gm PO UD PRN PRN Reason: Hypoglycemia Protocol Stop: 07/24/20 01:55 Nitroglycerin (Nitroglycerin Sl 0.4 Mg/Tab Tab) 0.4 mg SL Q5M PRN PRN Reason: chest pain Stop: 07/24/20 01:55 Nystatin (Nystatin Powder 15gm Btl) 1 appln EXT BID [facility] Stop: 07/24/20 08:59 Last Admin: 06/28/20 08:44 Dose: 1 appln Documented by: Ondansetron HCl (Ondansetron Inj 2 Mg/Ml 2 Ml Vial) 4 mg IV Q6H PRN PRN Reason: Nausea Stop: 07/24/20 01:55 Last Admin: 06/24/20 12:34 Dose: 4 mg Documented by: Pantoprazole Sodium (Pantoprazole 40 Mg Tab) 40 mg PO QAM [facility] Stop: 07/24/20 08:59 Last Admin: 06/28/20 08:44 Dose: 40 mg Documented by: Polyethylene Glycol (Polyethylene (Miralax) 17 Gm Pack) 17 gm PO DAILY PRN PRN Reason: Constipation Stop: 07/24/20 01:55 Potassium Chloride (Potassium Chloride 10 Meq Tabcr) 10 meq PO QAM [facility] Stop: 07/24/20 08:59 Last Admin: 06/28/20 08:44 Dose: 10 meq Documented by: Tramadol HCl (Tramadol Hcl 50 Mg Tablet) 50 mg PO Q6H PRN PRN Reason: Pain Stop: 07/26/20 15:57 Last Admin: 06/27/20 15:38 Dose: 50 mg Documented by: PG Care Time/CCT Total # of Minutes Spent Total Time Spent with Patient: Total time spent is greater than 50% in coordination of care (as documented) at patient's floor/unit and/or counseling patient: Coding Level of Care Code 88167 Subseq Hosp Care Lvl 2 Diagnoses COVID-19 U07.1 Hypertension I10 Hypertension type: essential hypertension Depression F32.9 Depression Type: major depressive disorder Major depression recurrence: unspecified whether recurrent Active/Remission status: remission status unspecified COPD (chronic obstructive pulmonary disease) J44.9 COPD type: unspecified COPD Diastolic congestive heart failure I50.32 Heart failure chronicity: chronic Hypercholesteremia E78.00 Diabetes mellitus type 2, insulin dependent E11.9; Z79.4 Mild CAD I25.10 GERD (gastroesophageal reflux disease) K21.9 Esophagitis presence: esophagitis presence not specified (1) Hypertension Hypertension type: essential hypertension Qualified Code(s): I10 - Essential (primary) hypertension (2) Depression Depression Type: major depressive disorder Major depression recurrence: unspecified whether recurrent Active/Remission status: remission status unspecified Qualified Code(s): F32.9 - Major depressive disorder, single episode, unspecified (3) COPD (chronic obstructive pulmonary disease) COPD type: unspecified COPD Qualified Code(s): J44.9 - Chronic obstructive pulmonary disease, unspecified (4) Diastolic congestive heart failure Heart failure chronicity: chronic Qualified Code(s): I50.32 - Chronic diastolic (congestive) heart failure (5) GERD (gastroesophageal reflux disease) Esophagitis presence: esophagitis presence not specified Qualified Code(s): K21.9 - Gastro-esophageal reflux disease without esophagitis
[2020-06-28] MEDS: traMADol HCL 50 MG TABLET PO PRN (18:46)
[2020-06-28] MEDS: ATORVASTATIN 40 MG TAB PO SCH (20:37)
[2020-06-28] MEDS: CITALOPRAM 40 MG TAB PO SCH (20:37)
[2020-06-29] MEDS ORDERED: LEVALBUTEROL HCL 0.63 MG/3 ML NEB NEB STA (02:14)
[2020-06-29 06:11] LABS: Hematocrit (blood only) 43.3 % (37-47); Hemoglobin 14.1 g/dL (12.0-16.0); Mean Corpuscular Hemoglobin 28.1 pg (25-34); Mean Corpuscular Hgb Conc 32.6 g/dL (32-36); Mean Corpuscular Volume 86.3 fL (80-100); Mean Platelet Volume 10.3 fL (7.4-10.4); Platelet Count 164 K/uL (130-400); RDW Coefficient of Variation 14.3 % (11.5-14.5); RDW Standard Deviation 44.5 fL (36.4-46.3); Red Blood Count 5.02 M/uL (4.2-5.4); White Blood Count 16.55 K/uL (4.8-10.8)
[2020-06-29 06:33] LABS: BUN Creatinine Ratio 26.2 (10-20); Calcium 8.4 mg/dl (8.5-10.1); Creatinine Clr Calc Pharmacy 57.8 ml/min; Est GFR (African American) 61.9; Est GFR (Non-African American) 53.4; Potassium 3.7 mmol/L (3.5-5.1)
[2020-06-29] MEDS ORDERED: METOPROLOL TARTRATE 1 MG/ML VIAL IV PRN (06:34)
[2020-06-29] MEDS ORDERED: dilTIAZem HCl 5 MG/ML 5 ML VIAL IV ONE (07:48)
[2020-06-29] MEDS ORDERED: dilTIAZem HCl 5 MG/ML 5 ML VIAL IV STA ×2 (07:50→08:26)
[2020-06-29] MEDS ORDERED: STAT IV Infusion **Titration per Protocol STA (07:56)
[2020-06-29] MEDS: ALBUTEROL HFA 8 GM INHALER INH SCH (08:02)
[2020-06-29] MEDS: ACETAMINOPHEN 325 MG TAB PO PRN (08:06)
[2020-06-29] MEDS ORDERED: FUROSEMIDE 40 MG in SYRINGE 0 ML IV ONE (08:09)
[2020-06-29] MEDS ORDERED: ENOXAPARIN 1 MG/KG SQ SCH (08:15)
[2020-06-29] MEDS: dilTIAZem HCL 125 MG in DEXTROSE 5% 100 ML IV SCH ×2 (08:16→20:41)
[2020-06-29] MEDS ORDERED: POTASSIUM CHLORIDE CRTAB 20 MEQ TABCR PO ONE (08:30)
[2020-06-29] MEDS ORDERED: FUROSEMIDE 40 MG/4 ML VIAL IV ONE (08:30)
--- NOTE | 2020-06-29 08:30 | XRay Report ---
XR chest 1V portable HISTORY: 80 years-old Female hypoxia, afib RVR acute hypoxia. Atrial fibrillation COMPARISON: Chest radiograph and CTA chest 06/23/2020 TECHNIQUE: Portable AP view the chest FINDINGS: Cardiac silhouette is enlarged. Unchanged blunting of the costophrenic angles. Left lung base opacity redemonstrated. No pneumothorax, large pleural effusion or overt pulmonary edema. Degenerative nguyễn es of the shoulders and spine. IMPRESSION: 1. Cardiomegaly without pulmonary edema. 2. Opacity of the left lung base redemonstrated suggestive of summation density/atelectasis. Pneumoni a considered less likely. ACT 112: Negative or not required by law. The above report was generated using voice recognition software. It may contain grammatical, syntax o r spelling errors. Electronically signed by: Jaziel Martin M.D. 06/29/2020 8:28 AM
[2020-06-29] MEDS: INSULIN ASPART 100 UNITS/ML 3 ML PEN SC SCH ×3 (08:34→18:16)
[2020-06-29 08:42] LABS: Hematocrit (blood only) 44.5 % (37-47); Hemoglobin 14.3 g/dL (12.0-16.0); Mean Corpuscular Hemoglobin 28.1 pg (25-34); Mean Corpuscular Volume 87.4 fL (80-100); Mean Platelet Volume 10.9 fL (7.4-10.4); Platelet Count 165 K/uL (130-400); RDW Coefficient of Variation 14.2 % (11.5-14.5); RDW Standard Deviation 45.6 fL (36.4-46.3); Red Blood Count 5.09 M/uL (4.2-5.4); White Blood Count 18.51 K/uL (4.8-10.8)
[2020-06-29 08:47] LABS: Allen Test Pos (Pos); Base Excess ABG -1.8 mEq/L (-9-1.8); HCO3 ABG 19 mmol/L (19-24); Oxygen Saturation ABG 94.2 % (90-95); PCO2 ABG 25 mmHg (35-46); PO2 ABG 59 mmHg (80-95)
[2020-06-29] MEDS ORDERED: METOPROLOL TARTRATE 1 MG/ML VIAL IV STA (08:47)
[2020-06-29] MEDS ORDERED: 0.2 MICRON FILTER SET 1 EA IV ONE ×2 (08:54→09:03)
[2020-06-29] MEDS ORDERED: AMIODARONE 150MG / 100ML D5W IV ONE (08:55)
[2020-06-29 08:56] LABS: pH ABG 7.51 (7.35-7.45)
[2020-06-29] MEDS ORDERED: AMIODARONE / D5W 150 MG/100 ML BAG IV STA (08:58)
[2020-06-29 08:59] LABS: BUN Creatinine Ratio 22.6 (10-20); Calcium 8.4 mg/dl (8.5-10.1); Creatinine Clr Calc Pharmacy 51.6 ml/min; Est GFR (African American) 53.9; Est GFR (Non-African American) 46.5; Magnesium 2.1 mg/dl (1.8-2.4); Potassium 3.9 mmol/L (3.5-5.1)
[2020-06-29 09:03] LABS: Basophils # (auto) 0.01 K/uL (0-0.2); Basophils % (auto) 0.1 %; Immature Granulocytes # (auto) 0.07 K/uL (0.00-0.02); Immature Granulocytes % (auto) 0.4 %; Lymphocytes # (auto) 0.88 K/uL (1.2-3.4); Lymphocytes % (auto) 4.8 %; Mean Corpuscular Hgb Conc 32.1 g/dL (32-36); Monocytes # (auto) 1.69 K/uL (0.11-0.59); Monocytes % (auto) 9.1 %; Neutrophils # (auto) 15.86 K/uL (1.4-6.5); Neutrophils % (auto) 85.6 %; Troponin I 0.028 ng/ml (0-0.045)
[2020-06-29] MEDS ORDERED: AMIODARONE / D5W 360 MG/200 ML BAG IV ONE (09:03)
--- NOTE | 2020-06-29 09:03 | Hospitalist Progress Note ---
Date of Service June 29, 2020 Assessment & Plan (1) Atrial fibrillation with rapid ventricular response: treated initially with Lopressor 5mg IV, Diltiazem 10mg IV and Diltiazem drip gave additional Diltiazem 15mg IV Amiodarone bolus and drip, Digoxin 250mcg IV x 2 HR still in 150's, PVC's, BP dropped to 90's systolic gave 500cc NSS bolus cardioverted at the bedside with 100J, successful, sinus tachycardia at 105 Lovenox 1mg/kg started this morning when she went into afib transferred to ICU status due to tenuous cardiovascular and respiratory status total time at the bedside with patient was 155 minutes critical care time of 70 minutes managing afib RVR and acute hypoxic respiratory failure (2) Hypotension: likely from RVR and numerous medications for rate control also due to sepsis responded to NSS bolus and cardioversion hypertensive after cardioversion (3) Sepsis: unclear source but might be skin abscess over right chest wall wound from mastectomy site blood cultures drawn, wound culture drawn continue Cefepime, monitor fever curve, WBC up at 18k (4) Respiratory alkalosis: hyperventilating PCO2 down into the 20's, PaO2 is 60s CXR is relatively clear saturating well on room air to 2L when sleeping (5) Acute kidney injury: Cr jamia from 1.1 to 1.7, likely from hypotension, sepsis check UA thomas placed repeat BMP in the morning (6) COVID-19: saturations dropped a little, below 94% intermittently continue dexamethasone 6mg IV daily, complete 7-10 days, day 4 today she tends to drop at night, might have undiagnosed KHLOE no infiltrates on CXR today, do not suspect that respiratory distress due to COVID (7) Hypertension: BP elevated at times today on Diltiazem drip currently anxiety could be driving force as well (8) Depression: Chronic -Continue Citalopram (9) COPD (chronic obstructive pulmonary disease): Chronic. Patient reports some mild SOB. No wheezing present on exam -Continue Fluticasone/Vilanterol -Continue Albuterol (10) Diastolic congestive heart failure: no pulmonary edema on CXR gave Lasix 40mg IV x 1 but no response this morning likely euvolemic (11) Hypercholesteremia: Chronic -Continue Atorvastatin (12) Diabetes mellitus type 2, insulin dependent: change Lantus to 15 units BID since she is not eating NSS changed to q6 since she will be NPO for today -Check A1C : 7.0% -Continue Gabapentin for neuropathy (13) Mild CAD: Chronic. Stable. Troponin is unremarkable on admission -Continue ASA 81mg po daily -Continue Atorvastatin no chest pressure with rates in 160's troponin negative (14) GERD (gastroesophageal reflux disease): Chronic. Well controlled -Continue Protonix 40mg po daily F/E/N - He[place]ock. AHA/CC diet as tolerated Ppx - Lovenox 40 BID Code- DNR/DNI per discussion with patient Admission and Anticipated Discharge Date Admission Date: June 23, 2020 Subjective patient started to have shortness of breath and chest discomfort early this morning, around 5am, she said she slept fine prior to that found to have HR in the 160's on vitals check, EKG with afib RVR, has a history of Afib moved to PCU for management gave her Lopressor 5mg and Diltiazem 10mg IV push and started drip 5mg/hr CXR with cardiomegaly but no obvious heart failure, left lower lobe atelectasis she is hypertensive, febrile, requiring 4L NC HR did not respond to initial pushes, ordered Diltiazem 15mg IV and Lopressor 10mg IV frequent PVC on the monitor, known history of cardiomyopathy ordered Amiodarone 150mg IV bolus to try to get her to break gave Ativan 0.5mg IV due to anxiety, hyperventilation, did relax patient a little discussed code status with her at the bedside, she said that she would want CPR and cardioversion and intubated if needed I called her daughter Rosa to update her, she is aware that she needed moved to PCU and she is in afib with RVR reviewed labs, pH is 7.5, CO2 25 and PaO2 59 on 4L NC patient continued in RVR with rates 140-150, frequent PVC called Dr. Graff to discuss, he recommend digoxin 250mcg x 1 then 250mcg 2 hours later discussed that she might need to be cardioverted due to her respiratory status suggested metoprolol might be better for rate control if HR driven by catecholamines BP started to drop to 90's systolic but still mentating called Dr. Gomez to assess her at the bedside, discussed cardioversion and wanted his opinion on airway management she was on BIPAP and saturating 100% on 40% FiO2 elected to cardiovert patient sedated with Fentanyl 50mcg and Versed 1mg IV successful cardioversion to sinus tach after one shock at 100J transferred to ICU status Review of Systems Review of Systems: All systems reviewed & are unremarkable except as noted in Subjective Physical Exam Constitutional: well developed, + acute distress, + ill appearing, + obese and + frail appearing Neck: trachea midline, no thyromegaly Respiratory: + uses accessory muscles, + tachypneic and + paradoxical thoraco- abdominal movement Cardiovascular: Rate/Rhythm: + tachycardic (140-160) and + irregularly irregular Heart Sounds: normal S1 and normal S2; no murmur Extremities: normal capillary refill; no edema Gastrointestinal (Abdomen): normal bowel sounds, soft, nontender, no hepatosplenomegaly Musculoskeletal: Head/Neck/Chest: normocephalic, head atraumatic and neck supple Extremities: extremities normal to inspection and + abnormal strength (generalized weakness) Skin: no rashes, warm and dry Neurologic: patellar DTR's 2+ bilat, sensation intact and PERRL, EOMI, acc ommodation nl, no face palsy, no dysarthria Psychiatric: Orientation: alert and oriented x 3 Affect: + anxious affect Lymphatic: no cervical or axillary lymphadenopathy Results & Data Results & Data ([facility]) Vital Signs (Past 12 Hours) Vital Signs Temp Pulse Resp BP Pulse Ox Pulse Ox 06/29/20 08:49 142 H 157/71 H 06/29/20 08:31 37.9 C H 165/84 H 06/29/20 07:57 39.6 C H 152 H 40 H 177/99 H 95 06/29/20 07:30 179 H 06/29/20 07:24 184 H 06/29/20 06:57 98 06/29/20 06:32 152 H 28 H 161/79 H 06/29/20 06:18 28 H 06/29/20 02:57 94 06/29/20 02:41 110 H 40 H 95 06/29/20 02:11 97 06/29/20 01:32 100 06/28/20 22:31 37.5 C 105 H 24 165/87 H 92 Laboratory Results Laboratory Results - last 24 hr 06/29/20 06/29/20 06/29/20 05:26 05:26 08:06 WBC 16.55 H RBC 5.02 Hgb 14.1 Hct 43.3 MCV 86.3 MCH 28.1 MCHC 32.6 RDW Std Deviation 44.5 RDW Coeff of Erin 14.3 Plt Count 164 MPV 10.3 Immature Gran % (Auto) Neut % (Auto) Lymph % (Auto) Darke % (Auto) Eos % (Auto) Baso % (Auto) Neut # (Auto) Lymph # (Auto) Darke # (Auto) Eos # (Auto) Baso # (Auto) Immature Gran # (Auto) ABG pH ABG pCO2 ABG pO2 ABG HCO3 ABG O2 Saturation ABG Base Excess Pedrito Test Barometric Pressure Oxygen Given Sodium 133 L Potassium 3.7 Chloride 103 Carbon Dioxide 23 Anion Gap 7.0 BUN 26 H Creatinine 0.99 Est Cr Clr Drug Dosing 57.8 Est GFR ( Amer) 61.9 Est GFR (Non-Af Amer) 53.4 BUN/Creatinine Ratio 26.2 H Glucose 178 H POC Glucose 197 H Lactate Calcium 8.4 L Magnesium Total Bilirubin Direct Bilirubin AST ALT Alkaline Phosphatase Troponin I C-Reactive Protein Total Protein Albumin Procalcitonin TSH Urine Color Urine Appearance Urine pH Ur Specific [place] Urine Protein Urine Glucose (UA) Urine Ketones Urine Blood Urine Nitrite Urine Bilirubin Urine Urobilinogen Ur Leukocyte Esterase Urine WBC (Auto) Urine RBC (Auto) U Hyaline Cast (Auto) U Epithel Cells (Auto) Urine Bacteria (Auto) Nasal Screen MRSA (PCR) Bld Cult Staph aureus PCR Blood Culture MRSA PCR 06/29/20 06/29/20 06/29/20 08:29 08:29 08:29 WBC 18.51 H RBC 5.09 Hgb 14.3 Hct 44.5 MCV 87.4 MCH 28.1 MCHC 32.1 RDW Std Deviation 45.6 RDW Coeff of Erin 14.2 Plt Count 165 MPV 10.9 H Immature Gran % (Auto) 0.4 Neut % (Auto) 85.6 Lymph % (Auto) 4.8 Darke % (Auto) 9.1 Eos % (Auto) 0.0 Baso % (Auto) 0.1 Neut # (Auto) 15.86 H Lymph # (Auto) 0.88 L Darke # (Auto) 1.69 H Eos # (Auto) 0.00 Baso # (Auto) 0.01 Immature Gran # (Auto) 0.07 H ABG pH ABG pCO2 ABG pO2 ABG HCO3 ABG O2 Saturation ABG Base Excess Pedrito Test Barometric Pressure Oxygen Given Sodium 132 L Potassium 3.9 Chloride 102 Carbon Dioxide 22 Anion Gap 9.0 BUN 25 H Creatinine 1.11 Est Cr Clr Drug Dosing 51.6 Est GFR ( Amer) 53.9 Est GFR (Non-Af Amer) 46.5 BUN/Creatinine Ratio 22.6 H Glucose 171 H POC Glucose Lactate 1.8 Calcium 8.4 L Magnesium 2.1 Total Bilirubin Direct Bilirubin AST ALT Alkaline Phosphatase Troponin I 0.028 C-Reactive Protein Total Protein Albumin Procalcitonin TSH Urine Color Urine Appearance Urine pH Ur Specific [place] Urine Protein Urine Glucose (UA) Urine Ketones Urine Blood Urine Nitrite Urine Bilirubin Urine Urobilinogen Ur Leukocyte Esterase Urine WBC (Auto) Urine RBC (Auto) U Hyaline Cast (Auto) U Epithel Cells (Auto) Urine Bacteria (Auto) Nasal Screen MRSA (PCR) Bld Cult Staph aureus PCR Blood Culture MRSA PCR 06/29/20 06/29/20 06/29/20 08:29 08:29 08:29 WBC RBC Hgb Hct MCV MCH MCHC RDW Std Deviation RDW Coeff of Erin Plt Count MPV Immature Gran % (Auto) Neut % (Auto) Lymph % (Auto) Darke % (Auto) Eos % (Auto) Baso % (Auto) Neut # (Auto) Lymph # (Auto) Darke # (Auto) Eos # (Auto) Baso # (Auto) Immature Gran # (Auto) ABG pH 7.51 H* ABG pCO2 25 L ABG pO2 59 L ABG HCO3 19 ABG O2 Saturation 94.2 ABG Base Excess -1.8 Pedrito Test Pos Barometric Pressure 733.6 Oxygen Given 4L Sodium Potassium Chloride Carbon Dioxide Anion Gap BUN Creatinine Est Cr Clr Drug Dosing Est GFR ( Amer) Est GFR (Non-Af Amer) BUN/Creatinine Ratio Glucose POC Glucose Lactate Calcium Magnesium Total Bilirubin Direct Bilirubin AST ALT Alkaline Phosphatase Troponin I C-Reactive Protein 8.20 H Total Protein Albumin Procalcitonin 0.54 H TSH Urine Color Urine Appearance Urine pH Ur Specific [place] Urine Protein Urine Glucose (UA) Urine Ketones Urine Blood Urine Nitrite Urine Bilirubin Urine Urobilinogen Ur Leukocyte Esterase Urine WBC (Auto) Urine RBC (Auto) U Hyaline Cast (Auto) U Epithel Cells (Auto) Urine Bacteria (Auto) Nasal Screen MRSA (PCR) Bld Cult Staph aureus PCR Blood Culture MRSA PCR 06/29/20 06/29/20 06/29/20 08:29 12:18 13:52 WBC RBC Hgb Hct MCV MCH MCHC RDW Std Deviation RDW Coeff of Erin Plt Count MPV Immature Gran % (Auto) Neut % (Auto) Lymph % (Auto) Darke % (Auto) Eos % (Auto) Baso % (Auto) Neut # (Auto) Lymph # (Auto) Darke # (Auto) Eos # (Auto) Baso # (Auto) Immature Gran # (Auto) ABG pH ABG pCO2 ABG pO2 ABG HCO3 ABG O2 Saturation ABG Base Excess Pedrito Test Barometric Pressure Oxygen Given Sodium Potassium Chloride Carbon Dioxide Anion Gap BUN Creatinine Est Cr Clr Drug Dosing Est GFR ( Amer) Est GFR (Non-Af Amer) BUN/Creatinine Ratio Glucose POC Glucose 187 H Lactate 2.2 H* Calcium Magnesium Total Bilirubin Direct Bilirubin AST ALT Alkaline Phosphatase Troponin I C-Reactive Protein Total Protein Albumin Procalcitonin TSH Urine Color Urine Appearance Urine pH Ur Specific [place] Urine Protein Urine Glucose (UA) Urine Ketones Urine Blood Urine Nitrite Urine Bilirubin Urine Urobilinogen Ur Leukocyte Esterase Urine WBC (Auto) Urine RBC (Auto) U Hyaline Cast (Auto) U Epithel Cells (Auto) Urine Bacteria (Auto) Nasal Screen MRSA (PCR) Bld Cult Staph aureus PCR Positive A Blood Culture MRSA PCR Negative 06/29/20 06/29/20 06/29/20 13:52 15:32 15:32 WBC RBC Hgb Hct MCV MCH MCHC RDW Std Deviation RDW Coeff of Erin Plt Count MPV Immature Gran % (Auto) Neut % (Auto) Lymph % (Auto) Darke % (Auto) Eos % (Auto) Baso % (Auto) Neut # (Auto) Lymph # (Auto) Darke # (Auto) Eos # (Auto) Baso # (Auto) Immature Gran # (Auto) ABG pH ABG pCO2 ABG pO2 ABG HCO3 ABG O2 Saturation ABG Base Excess Pedrito Test Barometric Pressure Oxygen Given Sodium 131 L Potassium 4.2 Chloride 102 Carbon Dioxide 23 Anion Gap 7.0 BUN 36 H Creatinine 1.79 H D Est Cr Clr Drug Dosing 32.0 Est GFR ( Amer) 30.3 Est GFR (Non-Af Amer) 26.1 BUN/Creatinine Ratio 20.2 H Glucose 197 H POC Glucose Lactate 2.5 H* Calcium 8.0 L Magnesium Total Bilirubin 0.9 Direct Bilirubin 0.4 H AST 155 H ALT 38 Alkaline Phosphatase 109 Troponin I C-Reactive Protein Total Protein 7.2 Albumin 2.5 L Procalcitonin TSH 2.560 Urine Color Urine Appearance Urine pH Ur Specific [place] Urine Protein Urine Glucose (UA) Urine Ketones Urine Blood Urine Nitrite Urine Bilirubin Urine Urobilinogen Ur Leukocyte Esterase Urine WBC (Auto) Urine RBC (Auto) U Hyaline Cast (Auto) U Epithel Cells (Auto) Urine Bacteria (Auto) Nasal Screen MRSA (PCR) Bld Cult Staph aureus PCR Blood Culture MRSA PCR 06/29/20 06/29/20 06/29/20 15:48 18:10 18:50 WBC RBC Hgb Hct MCV MCH MCHC RDW Std Deviation RDW Coeff of Erin Plt Count MPV Immature Gran % (Auto) Neut % (Auto) Lymph % (Auto) Darke % (Auto) Eos % (Auto) Baso % (Auto) Neut # (Auto) Lymph # (Auto) Darke # (Auto) Eos # (Auto) Baso # (Auto) Immature Gran # (Auto) ABG pH 7.49 H ABG pCO2 27 L ABG pO2 69 L ABG HCO3 21 ABG O2 Saturation 95.0 ABG Base Excess -1.4 Pedrito Test Pos Barometric Pressure 729.5 Oxygen Given 4L Sodium Potassium Chloride Carbon Dioxide Anion Gap BUN Creatinine Est Cr Clr Drug Dosing Est GFR ( Amer) Est GFR (Non-Af Amer) BUN/Creatinine Ratio Glucose POC Glucose 221 H Lactate Calcium Magnesium Total Bilirubin Direct Bilirubin AST ALT Alkaline Phosphatase Troponin I C-Reactive Protein Total Protein Albumin Procalcitonin TSH Urine Color Urine Appearance Urine pH Ur Specific [place] Urine Protein Urine Glucose (UA) Urine Ketones Urine Blood Urine Nitrite Urine Bilirubin Urine Urobilinogen Ur Leukocyte Esterase Urine WBC (Auto) Urine RBC (Auto) U Hyaline Cast (Auto) U Epithel Cells (Auto) Urine Bacteria (Auto) Nasal Screen MRSA (PCR) Negative Bld Cult Staph aureus PCR Blood Culture MRSA PCR 06/29/20 Unknown WBC RBC Hgb Hct MCV MCH MCHC RDW Std Deviation RDW Coeff of Erin Plt Count MPV Immature Gran % (Auto) Neut % (Auto) Lymph % (Auto) Darke % (Auto) Eos % (Auto) Baso % (Auto) Neut # (Auto) Lymph # (Auto) Darke # (Auto) Eos # (Auto) Baso # (Auto) Immature Gran # (Auto) ABG pH ABG pCO2 ABG pO2 ABG HCO3 ABG O2 Saturation ABG Base Excess Pedrito Test Barometric Pressure Oxygen Given Sodium Potassium Chloride Carbon Dioxide Anion Gap BUN Creatinine Est Cr Clr Drug Dosing Est GFR ( Amer) Est GFR (Non-Af Amer) BUN/Creatinine Ratio Glucose POC Glucose Lactate Calcium Magnesium Total Bilirubin Direct Bilirubin AST ALT Alkaline Phosphatase Troponin I C-Reactive Protein Total Protein Albumin Procalcitonin TSH Urine Color Yellow Urine Appearance Clear Urine pH 5.5 Ur Specific [place] 1.024 Urine Protein 1+ H Urine Glucose (UA) Negative Urine Ketones Negative Urine Blood 2+ H Urine Nitrite Negative Urine Bilirubin Negative Urine Urobilinogen Negative Ur Leukocyte Esterase Negative Urine WBC (Auto) 1-5 Urine RBC (Auto) 10-30 H U Hyaline Cast (Auto) 1-5 U Epithel Cells (Auto) >30 H Urine Bacteria (Auto) Negative Nasal Screen MRSA (PCR) Bld Cult Staph aureus PCR Blood Culture MRSA PCR Medications Administered Current Inpatient Medications Acetaminophen (Acetaminophen 325 Mg Tab) 650 mg PO Q4H PRN PRN Reason: Pain or Fever Stop: 07/24/20 01:55 Last Admin: 06/29/20 08:06 Dose: 650 mg Documented by: Albuterol (Albuterol 0.083% Nebu Soln 3 Ml Vial) 2.5 mg INH QID PRN PRN Reason: Shortness Of Breath Stop: 07/24/20 01:55 Last Admin: 06/26/20 11:33 Dose: 2.5 mg Documented by: Albuterol (Albuterol Hfa 8 Gm Inhaler) 2 puffs INH BIDR PRN PRN Reason: Shortness Of Breath Or Wheezing Stop: 07/24/20 18:59 Aspirin (Aspirin 81 Mg Ectab) 81 mg PO DAILY ISAIAS Stop: 07/24/20 08:59 Last Admin: 06/29/20 10:09 Dose: Not Given Documented by: Atorvastatin Calcium (Atorvastatin 40 Mg Tab) 40 mg PO HS ISAIAS Stop: 07/24/20 20:59 Last Admin: 06/28/20 20:37 Dose: 40 mg Documented by: Citalopram Hydrobromide (Citalopram 40 Mg Tab) 40 mg PO QPM [facility] Stop: 07/24/20 20:59 Last Admin: 06/28/20 20:37 Dose: 40 mg Documented by: Dextrose (Dextrose 50% 50 Ml Syringe) 25 - 50 ml IV UD PRN; Protocol PRN Reason: Hypoglycemia Protocol Stop: 07/24/20 01:55 Enoxaparin Sodium (Enoxaparin 150 Mg/Ml Syr) 129 mg SQ Q12 ISAIAS Stop: 07/29/20 08:59 Last Admin: 06/29/20 20:40 Dose: 129 mg Documented by: Fluticasone Propionate (Fluticasone Propionate Na Spr 16 Gm Btl) 2 sprays NA Q12 ISAIAS Stop: 07/24/20 08:59 Last Admin: 06/29/20 20:40 Dose: 2 sprays Documented by: Fluticasone/Vilanterol (Fluticasone/Vilanterol 100/25mcg 14 Puffs/Inhaler) 1 puffs INH DAILY [facility] Stop: 07/24/20 08:59 Last Admin: 06/29/20 09:44 Dose: Not Given Documented by: Gabapentin (Gabapentin 600 Mg Tab) 1,200 mg PO BID [facility] Stop: 07/24/20 08:59 Last Admin: 06/29/20 10:10 Dose: Not Given Documented by: Glucagon (Glucagon For Inj 1 Mg Vial) 1 mg SQ UD PRN; Protocol PRN Reason: Hypoglycemia Protocol Stop: 07/24/20 01:55 Glucose (Glucose 10 Tabs/Tube) 4 - 8 tabs PO UD PRN; Protocol PRN Reason: Hypoglycemia Protocol Stop: 07/24/20 01:55 Diltiazem HCl 125 mg/ Dextrose 125 mls @ 10 mls/hr IV .[id number] ISAIAS; Protocol Stop: 07/29/20 07:49 Last Admin: 06/29/20 20:41 Dose: 10 mg/hr, 10 mls/hr Documented by: Amiodarone HCl/Dextrose (Nexterone / D5w) 360 mg in 200 mls @ 16.667 mls/hr IV .Q12H [facility] Stop: 07/29/20 15:02 Last Admin: 06/29/20 15:12 Dose: 0.5 mg/min, 16.7 mls/hr Documented by: Pantoprazole Sodium 40 mg/ (Syringe) 10 mls @ 5 mls/min IV DAILY@1100 [facility] Stop: 07/29/20 10:59 Last Admin: 06/29/20 10:39 Dose: 5 mls/min Documented by: Dexamethasone 6 mg/ Syringe 1.5 mls @ 1 mls/min IV DAILY [facility]; Protocol Stop: 07/05/20 09:02 Last Admin: 06/29/20 10:39 Dose: 1 mls/min Documented by: Cefepime HCl 2,000 mg/ Syringe 20 mls @ 5 mls/min IV Q12H [facility]; Protocol Stop: 07/06/20 13:59 Last Admin: 06/29/20 14:25 Dose: 5 mls/min Documented by: Insulin Aspart (Insulin Aspart 100 Units/Ml 3 Ml Pen) 0 units SC Q6 [facility] Stop: 07/29/20 11:59 Last Admin: 06/29/20 18:16 Dose: 6 units Documented by: Insulin Glargine (Insulin Glargine Solostar 100 Units/Ml 3 Ml Pen) 15 units SC BID [facility] Stop: 07/29/20 10:14 Last Admin: 06/29/20 20:41 Dose: 15 units Documented by: Levalbuterol HCl (Levalbuterol 1.25mg/0.5ml Neb) 1.25 mg NEB Q6H PRN PRN Reason: Wheezing Stop: 07/29/20 15:14 Last Admin: 06/29/20 15:18 Dose: 1.25 mg Documented by: Metoprolol Succinate (Metoprolol Succ 50mg Ext Rel Tab) 50 mg PO DAILY [facility] Stop: 07/24/20 08:59 Last Admin: 06/29/20 10:10 Dose: Not Given Documented by: Miscellaneous (Carbohydrates For Hypoglycemia ) 15 - 30 gm PO UD PRN PRN Reason: Hypoglycemia Protocol Stop: 07/24/20 01:55 Miscellaneous Information (Pharmacy Glycemic Mgmt Consult) 1 ea N/A UD [facility] Stop: 07/29/20 13:32 Nitroglycerin (Nitroglycerin Sl 0.4 Mg/Tab Tab) 0.4 mg SL Q5M PRN PRN Reason: chest pain Stop: 07/24/20 01:55 Nystatin (Nystatin Powder 15gm Btl) 1 appln EXT BID ISAIAS Stop: 07/24/20 08:59 Last Admin: 06/29/20 20:41 Dose: 1 appln Documented by: Ondansetron HCl (Ondansetron Inj 2 Mg/Ml 2 Ml Vial) 4 mg IV Q6H PRN PRN Reason: Nausea Stop: 07/24/20 01:55 Last Admin: 06/24/20 12:34 Dose: 4 mg Documented by: PG Care Time/CCT Total # of Minutes Spent Total Time Spent: 155 Total Time Spent with Patient: Total time spent is greater than 50% in coordination of care (as documented) at patient's floor/unit and/or counseling patient: 4 separate phone calls with patient's daughter managed the patient intermittently at the bedside from 730am to 1230pm called to discuss with Dr. Graff, cardiology discussed with Dr. Gomez and then present at the bedside for cardioversion went back to see patient again in afternoon after cardioversion reviewed labs, reviewed prior cardiology records, interpretted CXR personally Prolonged Care Time Prolonged Care Time: Yes Total Prolonged Care Time: 125 Critical Care Time: Yes Total Critical Care Time: 70 This case had a high probability of a clinically significant, sudden, or life threatening deterioration of this patient's condition which required my full and direct attention, intervention and personal management. Coding Level of Care Code 00303 Subseq Hosp Care Lvl 3 Diagnoses Atrial fibrillation with rapid ventricular response I48.91 Hypotension I95.9 Sepsis A41.9 Respiratory alkalosis E87.3 Acute kidney injury N17.9 COVID-19 U07.1 Hypertension I10 Hypertension type: essential hypertension Depression F32.9 Active/Remission status: remission status unspecified Depression Type: major depressive disorder Major depression recurrence: unspecified whether recurrent COPD (chronic obstructive pulmonary disease) J44.9 COPD type: unspecified COPD Diastolic congestive heart failure I50.32 Heart failure chronicity: chronic Hypercholesteremia E78.00 Diabetes mellitus type 2, insulin dependent E11.9; Z79.4 Mild CAD I25.10 GERD (gastroesophageal reflux disease) K21.9 Esophagitis presence: esophagitis presence not specified Additional Codes Critical Care Time - Critical Care Time: Yes ([id number]) Prolonged Care Time - Prolonged Care Time: Yes ([id number]) (1) Diastolic congestive heart failure Heart failure chronicity: chronic Qualified Code(s): I50.32 - Chronic diastolic (congestive) heart failure (2) Depression Active/Remission status: remission status unspecified Depression Type: major depressive disorder Major depression recurrence: unspecified whether recurrent Qualified Code(s): F32.9 - Major depressive disorder, single episode, unspecified (3) COPD (chronic obstructive pulmonary disease) COPD type: unspecified COPD Qualified Code(s): J44.9 - Chronic obstructive pulmonary disease, unspecified (4) GERD (gastroesophageal reflux disease) Esophagitis presence: esophagitis presence not specified Qualified Code(s): K21.9 - Gastro-esophageal reflux disease without esophagitis (5) Hypertension Hypertension type: essential hypertension Qualified Code(s): I10 - Essential (primary) hypertension
[2020-06-29] MEDS ORDERED: LORazepam 0.5 MG/1 ML VIAL IV STA (09:09)
[2020-06-29] MEDS: ENOXAPARIN 150 MG/ML SYR SQ SCH ×2 (09:15→20:40)
[2020-06-29] MEDS ORDERED: ALBUTEROL HFA 8 GM INHALER INH PRN (09:26)
[2020-06-29] MEDS: FLUTICASONE/VILANTEROL 100/25MCG 14 PUFFS/INHALER INH SCH (09:44)
[2020-06-29] MEDS: FLUTICASONE PROPIONATE NA SPR 16 GM BTL SCH ×2 (09:44→20:40)
[2020-06-29 09:54] LABS: Appearance Urine Clear (Clear); Bacteria Urine Automated Negative (Negative); Bilirubin Urine Negative (Negative); Blood Urine 2+ (Negative); Color Urine Yellow; Epithelial Cell Urine Auto >30 /lpf (0-5); Glucose Urine UA Negative (Negative); Ketones Urine Negative (Negative); Leukocyte Esterase Urine Negative (Negative); Nitrite Urine Negative (Negative); Protein Urine 1+ (Negative); Specific Gravity Urine 1.024 (1.000-1.030); Urobilinogen Urine Negative (Negative); pH Urine 5.5 (4.5-7.5)
[2020-06-29] MEDS ORDERED: DEXAMETHASONE SOD INJ 4 MG/ML VIAL IV STA (10:01)
[2020-06-29] MEDS ORDERED: DIGOXIN 500 MCG/2 ML AMP IV ONE (10:04)
[2020-06-29] MEDS: ASPIRIN 81 MG ECTAB PO SCH (10:09)
[2020-06-29] MEDS: PANTOprazole 40 MG TAB PO SCH (10:10)
[2020-06-29] MEDS: dexAMETHasone 4 MG TAB PO SCH (10:10)
[2020-06-29] MEDS: METOPROLOL SUCC 50MG EXT REL TAB PO SCH (10:10)
[2020-06-29] MEDS: POTASSIUM CHLORIDE 10 MEQ TABCR PO SCH (10:10)
[2020-06-29] MEDS: DOCUSATE SODIUM 100 MG CAP PO SCH (10:10)
[2020-06-29] MEDS: GABAPENTIN 600 MG TAB PO SCH (10:10)
[2020-06-29] MEDS: COLESTIPOL HCL 1 GM TAB PO SCH (10:11)
[2020-06-29] MEDS: INSULIN GLARGINE SOLOSTAR 100 UNITS/ML 3 ML PEN SC SCH ×3 (10:16→20:41)
[2020-06-29] MEDS: METOPROLOL TARTRATE 1 MG/ML VIAL IV STA ×2 (10:25→13:30)
[2020-06-29] MEDS ORDERED: DIGOXIN 250 MCG in SYRINGE 9 ML IV ONE ×2 (10:30→12:30)
[2020-06-29] MEDS: dexAMETHasone 6 MG in SYRINGE 0 ML IV SCH (10:39)
[2020-06-29] MEDS: PANTOprazole 40 MG in SYRINGE 0 ML IV SCH (10:39)
[2020-06-29] MEDS: NYSTATIN POWDER 15GM BTL EXT SCH ×2 (10:42→20:41)
[2020-06-29] MEDS ORDERED: SODIUM CHLORIDE 0.9% 1000ML 500 ML IV ONE ×2 (10:46→11:25)
[2020-06-29] MEDS ORDERED: MIDAZOLAM HCL 5 MG/ML 1 ML VIAL ONE (11:54)
[2020-06-29] MEDS ORDERED: fentaNYL citrate 100 MCG/2 ML VIAL ONE (11:55)
--- NOTE | 2020-06-29 13:15 | Procedure Note ---
Procedure Note Date of Service June 29, 2020 Note Patient underwent DC cardioversion with 100 J of electricity due to worsening hypotension and increasing work of breathing related to atrial fibrillation with rapid ventricular response. She was on diltiazem drips and amiodarone drips dur ing the cardioversion. She was on BiPAP for ventilatory support. She was premedicated with 1 mg of Versed and 50 mcg of fentanyl prior to the cardioversion. EKG obtained after cardioversion demonstrated sinus tachycardia at a rate of 109. Patient's work of breathing improved and blood pressure also demonstrated improvement. We will change the patient to ICU status. No significant complications were seen post cardioversion. She is moving her limbs spontaneously and opening her eyes. Continue to monitor vital signs closely. She is currently on full dose anticoagulation with Lovenox. Coding CPT Codes Resuscitation - Resuscitation: [id number] Cardioversion electric, ext ([id number]) [facility] [place] Procedure Codes (Charges) Resuscitation Resuscitation: 71399 Cardioversion electric, ext
--- NOTE | 2020-06-29 13:24 | Critical Care Consultation ---
Date of Consultation June 29, 2020 Assessment & Plan (1) Atrial fibrillation with rapid ventricular response: 80-year-old female with a past medical history of coronary disease, morbid obesity, hypertension and atrial fibrillation with evidence of sepsis and atrial fibrillation with rapid ventricular response requiring DC cardioversion Neurologic: She received 1 mg of Versed and 50 mcg of fentanyl for the cardioversion. Her mental status does slowly appear to be improving. Likely metabolic encephalopathy which should continue to resolve. Pulmonary: She is currently on BiPAP for increased work of breathing. Can de-escalate to oxygen mask as her work of breathing has improved after the DC cardioversion. Maintain saturations of 92 to 94%. Chest x-ray demonstrates likely atelectasis in the left lower lobe. Cardiovascular: Atrial fibrillation with rapid ventricular response as subsided after the DC cardioversion. Continue with the amiodarone drip. We will discontinue Cardizem drip. Continue full dose anticoagulation with Lovenox. Gastrointestinal: N.p.o. for now. Continue Protonix 40 mg IV daily. Renal: No issues at present. Maintain potassium above 4 and magnesium above 2. We will check a lactic acid. Infectious disease: Given the fever and elevated procalcitonin, will start cefepime empirically. WBC elevated as well. Obtain blood cultures and urine analysis. Fever likely related to COVID-19 illness. CRP elevated to 8.20. Hematologic: No significant issues at present. Endocrine: Hyperglycemia related to acute illness and Decadron. Will consult pharmacy for management. We will check a TSH. Prior TSH checked in November 2019 was within normal limits. Lines and tubes: Peripheral IVs in place. VTE prophylaxis: Lovenox as noted above. CODE STATUS: Patient was previously a DNR/DNI during this hospitalization, but now full code. Family at bedside: None available to to the COVID-19 pandemic. Patient's is also unfortunately hospitalized for COVID-19. Disposition: Remain in the ICU today. I have personally spent 70 minutes of critical care time in the direct management of this patient. This is a life/limb threatening event. This includes time spent evaluating patient, direct bedside care, chart review, placing orders, interpretation of diagnostic studies, discussion with consultants, patient, and family members, as well as other required patient management activities. This time is exclusive of all separately billable procedures, and teaching time and separate from and in addition to any other critical care service time. Thank you for allowing us to participate in the care of this patient. (2) Sepsis: (3) Hypotension: (4) COVID-19: (5) Altered mental status: History of Present Illness Reason for Consultation: Atrial fibrillation with rapid ventricular response Attending Physician: Johan Siddiqi DO History of Present Illness 80-year-old female with a past medical history of morbid obesity, atrial fibrillation, coronary artery disease, diastolic heart failure and diabetes mellitus type 2 who presented to the hospital on 06/23/2020 due to weakness over the last 2 to 3 days with increasing shortness of breath. Patient was not able to give me any significant history as she is currently in respiratory distress and hypotensive. She was also on BiPAP. I was able to speak to the respiratory therapist, bedside nurse, hospitalist and reviewed the chart to obtain a history. Patient has become increasingly confused over the course of the morning with increasing work of breathing. She has had atrial fibrillation with rapid ventricular response with heart rates in the 170s. Upon my presentation she persistently had heart rates in the 140s to 150s and had systolic blood pressure of 90. We elected to perform an emergent DC cardioversion with 100 J. She responded well to cardioversion and went into a sinus rhythm. She is currently on diltiazem drips, amiodarone and received IV digoxin. Cardiology is on board and assisting in management. She had a fever of 102.7 this afternoon. He is currently receiving 6 mg daily of Decadron for COVID-19 illness. She received IV Lasix this morning and then subsequently a fluid bolus was started for concern of sepsis. Allergies Allergy/AdvReac Type Severity Reaction Status Date / Time bee venom protein (honey bee) Allergy Severe SWELLING Verified 06/23/20 21:36 SOB iodine Allergy Severe RASH; Verified 06/23/20 21:36 SHORTNESS OF BREATH codeine Allergy Intermediate SWELLING Verified 06/23/20 21:36 metformin Allergy Intermediate Diarrhea Verified 06/23/20 21:36 Penicillins Allergy Intermediate RASH/HIVES Verified 06/23/20 21:36 chocolate flavor Allergy Mild Diarrhea Verified 06/29/20 08:20 procaine Allergy Mild NOVOCAINE-R Verified 06/23/20 21:36 AKILAH Cephalosporins Allergy Unknown UNKNOWN Verified 06/23/20 21:36 clarithromycin Allergy Unknown Unknown Verified 06/29/20 08:20 shellfish derived Allergy Unknown Unknown Verified 06/24/20 13:45 Home Medications Medication Instructions Recorded Confirmed Type ipratropium bromide 21 mcg (0.03 2 sprays INTNAS TID PRN #30 ml 10/28/18 06/23/20 Rx %) nasal spray Lift Chair #1 ea 03/09/19 05/29/20 Rx aspirin 81 mg tablet,delayed 81 mg PO DAILY 05/02/19 06/23/20 History release albuterol sulfate 90 mcg/actuation 2 puffs INH QID PRN #8 gm 06/06/19 06/23/20 Rx aerosol inhaler pantoprazole 40 mg tablet,delayed 40 mg PO QAM #90 tab 06/06/19 06/23/20 Rx release tramadol 50 mg tablet 50 - 100 mg PO Q6 PRN #30 tab 06/26/19 06/23/20 Rx metoprolol succinate 50 mg 50 mg PO DAILY #60 tab 07/04/19 06/23/20 Rx tablet,extended release 24 hr nystatin 100,000 unit/gram topical 1 appln TOP BID 21 Days #30 gm 08/11/19 06/23/20 Rx powder nystatin 100,000 unit/gram topical 1 appln TOP BID #60 gm 08/28/19 06/23/20 Rx cream gabapentin 600 mg tablet 1,200 mg PO BID #360 tab 08/31/19 06/23/20 Rx potassium chloride 10 mEq 10 meq PO QAM #90 tab 08/31/19 06/23/20 Rx tablet,extended release atorvastatin 40 mg tablet 40 mg PO HS #90 tab 10/12/19 06/23/20 Rx furosemide 40 mg tablet 40 mg PO QAM #90 tab 10/16/19 06/23/20 Rx insulin glargine 100 unit/mL 30 unit SUBCUT BID #20 ml 11/15/19 06/23/20 Rx subcutaneous solution lancets 30 gauge #100 ea 11/15/19 05/29/20 Rx meloxicam 7.5 mg tablet 7.5 mg PO BID PRN #60 tab 12/19/19 06/23/20 Rx cyclobenzaprine 5 mg tablet 5 mg PO TID PRN #30 tab 12/27/19 06/23/20 Rx docusate sodium 100 mg capsule 200 mg PO DAILY #60 cap 12/27/19 06/23/20 Rx fluticasone furoate 100 1 inh INH DAILY #28 ea 01/01/20 06/23/20 Rx mcg-vilanterol 25 mcg/dose inhalation powder insulin syringe-needle U-100 0.3 #100 ea 01/29/20 05/29/20 Rx mL 31 gauge x /16" metoclopramide HCl 10 mg tablet 10 mg PO QID PRN #120 tab 03/04/20 06/23/20 Rx flash glucose sensor #1 ea 03/14/20 05/29/20 Rx flash glucose scanning reader #1 ea 03/26/20 05/29/20 Rx nitroglycerin 0.4 mg sublingual 0.4 mg SUBLINGUAL Q5M PRN #25 tab 05/16/20 06/23/20 Rx tablet citalopram 40 mg tablet 40 mg PO QPM #90 tab 05/20/20 06/23/20 Rx fluticasone propionate 50 2 spray INTRANASAL Q12H #15.8 ml 05/31/20 06/23/20 Rx mcg/actuation nasal spray,suspension albuterol sulfate 2.5 mg INH QID PRN 06/23/20 06/23/20 History colestipol 2 g PO TID 06/23/20 06/23/20 History Patient History Medical History Anxiety Asthma RARELY NEEDS PRN INH Atrial fibrillation Paroxysmal, not on anticoagulation. Per cardio 12/25/15, "since she has not had a paroxysmal for many years, no therapy will be initiated today. Given her elevated CHADSVASC score, though, would recommend anticoagulation therapy if she were to develop any recurrent episodes of A. fib in the future." Chronic back pain Chronic chest pain Has been evaluated by cardio, ruled to be non-cardiac in origin. Delayed effect of radiation Depression Diabetes mellitus, type 2 IDDM. HgA1C 6.6% 05/03/18 Diverticular disease GERD (gastroesophageal reflux disease) Hiatal hernia History of right breast cancer S/P RT MASTECTOMY, + CHEMO/RADIATION Hyperlipidemia Hypertension Migraine Morbid obesity Myocardial Infarction > 20 YEARS AGO Nonobstructive atherosclerosis of coronary artery Per cath 2009 Osteoarthritis Surgical History Fusion of spine History of appendectomy History of back surgery [place] PRESENT History of bilateral tubal ligation History of breast biopsy History of cardiac cath 2008 [facility] for chest pain. Non-obstructive CAD. "Non-cardiac chest pain." History of carpal tunnel release BL History of cataract surgery History of cholecystectomy History of dilatation and curettage History of hysterectomy History of partial gastrectomy History of right mastectomy NO BP/IV RUE History of tonsillectomy History of tooth extraction History of total knee replacement BL History of total shoulder replacement RT Family History Sister Family history of diabetes mellitus Breast cancer Daughter Family history of reaction to anesthesia SLOW TO WAKE UP Grandfather (Maternal) Myocardial infarction Denies family history of Ovarian cancer Prostate cancer Colorectal cancer Social History Smoking Status: Never smoker Second Hand Exposure: No; Do You Dip or Chew Tobacco: No; Hx Alcohol Use: No Hx Substance Use: No Preferred Language: Romanian Communication Ability: Effective Visual Impairment: No Limitations Hearing Ability: Normal Religious Ritual Slaughterer Required: No Beliefs That Will Affect Care: None marital status: Current Living Situation: Spouse current occupational status: retired current occupation: retired [employer] Other Information That Helps Us Care for You: No Feels Safe at Home: Yes Safety Concerns: Feels Safe At This Time Childhood Exposure to Second-Hand Smoke: No Dental Care, Regularly: No Physical Activity Frequency: Does not Exercise Seatbelt Use: always Sunscreen Use: No Assistive Devices: Walker Review of Systems Review of Systems: All systems reviewed & are unremarkable except as noted in HPI & below Physical Exam Constitutional: Obese appearing female in significant distress. BiPAP mask in place. Eyes: PERRL, conjunctivae normal, anicteric sclerae ENMT: Ears: + hearing impairment Neck: normal visual inspection Respiratory: Increased respiratory effort with coarse breath sounds bilaterally. Cardiovascular: Rate/Rhythm: + tachycardic and + irregularly irregular Heart Sounds: + murmur Extremities: no edema Gastrointestinal (Abdomen): normal bowel sounds, soft, nontender, no hepatos plenomegaly Musculoskeletal: no cyanosis or clubbing, extremities motor strength 5/5 Skin: no rashes, warm and dry Neurologic: Awake and follows commands intermittently. Moves limbs spontaneously. Psychiatric: Appears anxious. Results & Data Results & Data ([facility]) Vital Signs (Past 12 Hours) Vital Signs Temp Pulse Pulse Pulse Resp BP Pulse Ox 06/29/20 12:13 111 H 36 H 108/71 100 06/29/20 11:59 110/75 06/29/20 11:36 108/74 06/29/20 11:13 102.7 F H 146 H 36 H 91/67 L 97 06/29/20 10:45 130 H 36 H 95 06/29/20 10:35 100.2 F H 117/80 06/29/20 10:15 143 H 102/67 06/29/20 09:51 148 H 32 H 98 06/29/20 09:43 109/76 06/29/20 09:35 109/77 06/29/20 09:02 165 H 06/29/20 08:49 142 H 157/71 H 06/29/20 08:31 100.2 F H 165/84 H 06/29/20 07:57 103.3 F H 152 H 40 H 177/99 H 95 06/29/20 07:30 179 H 06/29/20 07:24 184 H 06/29/20 06:57 98 06/29/20 06:32 152 H 28 H 161/79 H 06/29/20 06:18 28 H 06/29/20 02:57 94 06/29/20 02:41 110 H 40 H 95 06/29/20 02:11 97 06/29/20 01:32 Pulse Ox 06/29/20 12:13 06/29/20 11:59 06/29/20 11:36 06/29/20 11:13 06/29/20 10:45 06/29/20 10:35 06/29/20 10:15 06/29/20 09:51 06/29/20 09:43 06/29/20 09:35 06/29/20 09:02 06/29/20 08:49 06/29/20 08:31 06/29/20 07:57 06/29/20 07:30 06/29/20 07:24 06/29/20 06:57 06/29/20 06:32 06/29/20 06:18 06/29/20 02:57 06/29/20 02:41 06/29/20 02:11 06/29/20 01:32 100 Procalcitonin elevated to 0.54. Chest x-ray today with evidence of opacity in the left lung base. EKG reviewed post cardioversion is in sinus tachycardia. WBC elevated to 18,500.. Coding Level of Care Code Critical Care 1st 30-74 mins Diagnoses Atrial fibrillation with rapid ventricular response I48.91 Sepsis A41.9 Hypotension I95.9 COVID-19 U07.1 Altered mental status R41.82 Time Spent (min) 70
[2020-06-29] MEDS ORDERED: PHARMACY GLYCEMIC MGMT CONSULT SCH (13:33)
[2020-06-29] MEDS: CEFEPIME 2,000 MG in SYRINGE 0 ML IV SCH (14:25)
--- NOTE | 2020-06-29 14:26 | Pharmacy Report ---
Pharmacy Glycemic Short Note 2 - Date of Service June 29, 2020 - Glycemic Short BSG Results (Last 24 hours): 06/28/20 06/28/20 06/29/20 17:10 20:32 05:26 Glucose 178 H POC Glucose 232 H 226 H 06/29/20 06/29/20 06/29/20 08:06 08:29 12:18 Glucose 171 H POC Glucose 197 H 187 H OUTPATIENT ANTIDIABETIC REGIMEN: * Lantus 30 units BID ASSESSMENT: * 80 year old female, morbid obese, DM, AF, and COVID19 pneumonia, on IV Dexamethasone 6mg IV daily * Patient was on Lantus 30 units BID since admission, but was changed to 15 units BID for change to NPO status today * Continue reduced dose of basal for NPO * Tighten CF/CR based on patient's weight and stress * Consider adding NPH with steroids tomorrow morning depending how patient responds while NPO * Change goal range, ADA & AACE recommend a goal blood sugar range 140-180 mg/dl for the majority of critically ill & non-critically ill patients. However, more stringent targets may be selected in individual cases. Will utilize more stringent goal of 110-140mg/dl based on patient age & comorbidities. Additionally, tighter glycemic control is warranted to facilitate wound/infection healing. PLAN FOR INPATIENT GLYCEMIC CONTROL: * Basal insulin * Lantus 15 units SQ BID * Bolus insulin * NovoLog per scale ACHS or Q6hrs while NPO * Goal Range: Low 110 mg/dL - High 140 mg/dL * Correction Factor: 15 mg/dL/unit * Nutritional / Prandial insulin per carb ratio of 1 unit per 5 grams CHO consumed PLAN FOR DISCHARGE: * A1c 7.0% at goal, likely continue Lantus 30 units SQ BID upon discharge
[2020-06-29] MEDS ORDERED: LEVALBUTEROL 1.25MG/0.5ML NEB NEB PRN (15:04)
[2020-06-29] MEDS ORDERED: MoRPHine SULFATE 2 MG/ML CARP IV STA (15:04)
[2020-06-29] MEDS: AMIODARONE / D5W 360 MG/200 ML BAG IV SCH (15:12)
[2020-06-29 16:13] LABS: Base Excess ABG -1.4 mEq/L (-9-1.8); HCO3 ABG 21 mmol/L (19-24); PCO2 ABG 27 mmHg (35-46); PO2 ABG 69 mmHg (80-95); pH ABG 7.49 (7.35-7.45)
[2020-06-29 16:16] LABS: Allen Test Pos (Pos)
[2020-06-29 16:21] LABS: Albumin Level 2.5 gm/dl (3.4-5.0); BUN Creatinine Ratio 20.2 (10-20); Bilirubin,Total 0.9 mg/dl (0.2-1); Est GFR (African American) 30.3; Est GFR (Non-African American) 26.1; Total Protein 7.2 gm/dl (6.4-8.2)
[2020-06-29 16:27] LABS: Potassium 4.2 mmol/L (3.5-5.1)
[2020-06-29 16:31] LABS: Bilirubin Direct 0.4 mg/dl (0-0.2)
[2020-06-30] MEDS: INSULIN ASPART 100 UNITS/ML 3 ML PEN SC SCH ×6 (00:01→20:55)
[2020-06-30] MEDS: AMIODARONE / D5W 360 MG/200 ML BAG IV SCH ×2 (02:48→14:27)
[2020-06-30] MEDS: CEFEPIME 2,000 MG in SYRINGE 0 ML IV SCH (03:17)
[2020-06-30 06:23] LABS: Hematocrit (blood only) 41.5 % (37-47); Hemoglobin 13.5 g/dL (12.0-16.0); Immature Granulocytes # (auto) 0.05 K/uL (0.00-0.02); Immature Granulocytes % (auto) 0.3 %; Lymphocytes # (auto) 0.79 K/uL (1.2-3.4); Lymphocytes % (auto) 4.3 %; Mean Corpuscular Hemoglobin 27.9 pg (25-34); Mean Corpuscular Hgb Conc 32.5 g/dL (32-36); Mean Corpuscular Volume 85.7 fL (80-100); Mean Platelet Volume 11.1 fL (7.4-10.4); Monocytes # (auto) 1.43 K/uL (0.11-0.59); Monocytes % (auto) 7.7 %; Neutrophils # (auto) 16.29 K/uL (1.4-6.5); Neutrophils % (auto) 87.7 %; Platelet Count 144 K/uL (130-400); RDW Coefficient of Variation 14.8 % (11.5-14.5); RDW Standard Deviation 47.1 fL (36.4-46.3); Red Blood Count 4.84 M/uL (4.2-5.4); White Blood Count 18.56 K/uL (4.8-10.8)
[2020-06-30 06:44] LABS: BUN Creatinine Ratio 28.9 (10-20); Calcium 7.9 mg/dl (8.5-10.1); Creatinine Clr Calc Pharmacy 36.4 ml/min; Est GFR (African American) 35.5; Est GFR (Non-African American) 30.6; Magnesium 2.3 mg/dl (1.8-2.4); Potassium 3.7 mmol/L (3.5-5.1)
[2020-06-30 06:45] LABS: Phosphorus 2.8 mg/dl (2.5-4.9)
[2020-06-30] MEDS ORDERED: VANCOMYCIN CONSULT ACTIVE PRN (07:47)
[2020-06-30] MEDS: dilTIAZem HCL 125 MG in DEXTROSE 5% 100 ML IV SCH (07:56)
[2020-06-30] MEDS: ACETAMINOPHEN 325 MG TAB PO PRN (07:59)
[2020-06-30] MEDS: FLUTICASONE PROPIONATE NA SPR 16 GM BTL SCH ×2 (08:00→20:45)
[2020-06-30] MEDS ORDERED: VANCOMYCIN HCL 1,000 MG in SODIUM CHLORIDE 0.9% 250 ML IV SCH (08:00)
[2020-06-30] MEDS: dexAMETHasone 6 MG in SYRINGE 0 ML IV SCH (08:00)
[2020-06-30] MEDS: ENOXAPARIN 150 MG/ML SYR SQ SCH ×2 (08:00→20:45)
[2020-06-30] MEDS: METOPROLOL SUCC 50MG EXT REL TAB PO SCH (08:02)
[2020-06-30] MEDS: NYSTATIN POWDER 15GM BTL EXT SCH ×2 (08:02→20:45)
[2020-06-30] MEDS ORDERED: DOCUSATE SODIUM 100 MG CAP PO ONE (08:03)
[2020-06-30] MEDS ORDERED: AZITHROMYCIN 500 MG in DEXTROSE 5% 250 ML IV SCH (08:15)
[2020-06-30] MEDS ORDERED: VANCOMYCIN HCL 2,750 MG in SODIUM CHLORIDE 0.9% 500 ML IV ONE (08:15)
[2020-06-30] MEDS: INSULIN GLARGINE SOLOSTAR 100 UNITS/ML 3 ML PEN SC SCH ×2 (08:49→20:53)
--- NOTE | 2020-06-30 09:27 | XRay Report ---
XR chest 1V portable HISTORY: 80 years-old Female F/U COVID-19 acute shortness of breath COMPARISON: Chest radiograph 06/29/2020 TECHNIQUE: Portable AP view of the chest FINDINGS: Cardiac silhouette is enlarged. Pulmonary vascular congestion without pulmonary edema. Inferior lung bases are not imaged. Minimal subsegmental bibasilar opacities. Degenerative changes of the shoulders and spine. IMPRESSION: 1. Cardiomegaly with pulmonary vascular congestion. 2. Mild bibasilar densities suggestive of atelectasis. A mild pneumonitis could appear similarly. ACT 112: Negative or not required by law. The above report was generated using voice recognition software. It may contain grammatical, syntax o r spelling errors. Electronically signed by: Jaziel Martin M.D. 06/30/2020 9:25 AM
--- NOTE | 2020-06-30 09:49 | Cardiology Consultation ---
Date of Consultation June 30, 2020 Assessment & Plan (1) Atrial fibrillation with rapid ventricular response: She has a history of atrial fibrillation, it is believed to be infrequent therefore she was not on anticoagulation. She presented to the hospital in sinus rhythm but then developed atrial fibrillation on June 29, with respiratory decompensation probably in part due to the development of congestive heart failure from the rapid heart rate. We should try to maintain sinus rhythm. I a gree with the use of amiodarone. (2) Acute exacerbation of CHF (congestive heart failure): Although we did not do an echocardiogram this admission, her heart failure is likely diastolic due to the rapid heart rate. Clinically that has improved significantly with rate control. Agree with diuresis. We should consider an echocardiogram. (3) CAD (coronary artery disease): She has longstanding known coronary disease identified at catheterization. She does not have active ischemia based on symptoms and her electrocardiogram. She will need long-term risk factor modification but I would not pursue invasive or noninvasive evaluation of her coronary disease at this time. History of Present Illness Reason for Consultation: Atrial fibrillation with rapid ventricular response Attending Physician: Johan Siddiqi DO History of Present Illness This is a 80-year-old woman with a history of hypertension, hyperlipidemia, diabetes mellitus and nonobstructive coronary disease at catheterization September 06, 2008. A dobutamine stress echo done on January 13, 2019 showed a top normal left ventricle with low normal systolic function and no regional wall motion abnormalities. The stress test was negative for ischemia at 88% of her maximal predicted heart rate. She does have a history of paroxysmal atrial fibrillation. She also has breast cancer and underwent right mastectomy on May 2018 with poor wound healing subsequently. She presented to hospital June 23, 2020 with weakness and shortness of breath, she was identified as having COVID-19 and her also had the illness therefore she required admission. She was doing relatively well with some hypoxia and some shortness of breath but no severe pulmonary issues until around 5 AM on June 29, 2020 when she was short of breath and had some chest discomfort and was noted to be in atrial fibrillation with a heart rate in the 160s. She was not on telemetry. She was transferred to PCU, she did receive intravenous diltiazem and intravenous amiodarone for rate control however continued to be tachycardic, developed worsening of her shortness of breath and was on BiPAP with continued shortness of breath. She underwent urgent cardioversion on June 29, 2020. Allergies Allergy/AdvReac Type Severity Reaction Status Date / Time bee venom protein (honey bee) Allergy Severe SWELLING Verified 06/23/20 21:36 SOB iodine Allergy Severe RASH; Verified 06/23/20 21:36 SHORTNESS OF BREATH codeine Allergy Intermediate SWELLING Verified 06/23/20 21:36 metformin Allergy Intermediate Diarrhea Verified 06/23/20 21:36 Penicillins Allergy Intermediate RASH/HIVES Verified 06/23/20 21:36 chocolate flavor Allergy Mild Diarrhea Verified 06/29/20 08:20 procaine Allergy Mild NOVOCAINE-R Verified 06/23/20 21:36 AKILAH Cephalosporins Allergy Unknown UNKNOWN Verified 06/23/20 21:36 clarithromycin Allergy Unknown Unknown Verified 06/29/20 08:20 shellfish derived Allergy Unknown Unknown Verified 06/24/20 13:45 Home Medications Medication Instructions Recorded Confirmed Type ipratropium bromide 21 mcg (0.03 2 sprays INTNAS TID PRN #30 ml 10/28/18 06/23/20 Rx %) nasal spray Lift Chair #1 ea 03/09/19 05/29/20 Rx aspirin 81 mg tablet,delayed 81 mg PO DAILY 05/02/19 06/23/20 History release albuterol sulfate 90 mcg/actuation 2 puffs INH QID PRN #8 gm 06/06/19 06/23/20 Rx aerosol inhaler pantoprazole 40 mg tablet,delayed 40 mg PO QAM #90 tab 06/06/19 06/23/20 Rx release tramadol 50 mg tablet 50 - 100 mg PO Q6 PRN #30 tab 06/26/19 06/23/20 Rx metoprolol succinate 50 mg 50 mg PO DAILY #60 tab 07/04/19 06/23/20 Rx tablet,extended release 24 hr nystatin 100,000 unit/gram topical 1 appln TOP BID 21 Days #30 gm 08/11/19 06/23/20 Rx powder nystatin 100,000 unit/gram topical 1 appln TOP BID #60 gm 08/28/19 06/23/20 Rx cream gabapentin 600 mg tablet 1,200 mg PO BID #360 tab 08/31/19 06/23/20 Rx potassium chloride 10 mEq 10 meq PO QAM #90 tab 08/31/19 06/23/20 Rx tablet,extended release atorvastatin 40 mg tablet 40 mg PO HS #90 tab 10/12/19 06/23/20 Rx furosemide 40 mg tablet 40 mg PO QAM #90 tab 10/16/19 06/23/20 Rx insulin glargine 100 unit/mL 30 unit SUBCUT BID #20 ml 11/15/19 06/23/20 Rx subcutaneous solution lancets 30 gauge #100 ea 11/15/19 05/29/20 Rx meloxicam 7.5 mg tablet 7.5 mg PO BID PRN #60 tab 12/19/19 06/23/20 Rx cyclobenzaprine 5 mg tablet 5 mg PO TID PRN #30 tab 12/27/19 06/23/20 Rx docusate sodium 100 mg capsule 200 mg PO DAILY #60 cap 12/27/19 06/23/20 Rx fluticasone furoate 100 1 inh INH DAILY #28 ea 01/01/20 06/23/20 Rx mcg-vilanterol 25 mcg/dose inhalation powder insulin syringe-needle U-100 0.3 #100 ea 01/29/20 05/29/20 Rx mL 31 gauge x /16" metoclopramide HCl 10 mg tablet 10 mg PO QID PRN #120 tab 03/04/20 06/23/20 Rx flash glucose sensor #1 ea 03/14/20 05/29/20 Rx flash glucose scanning reader #1 ea 03/26/20 05/29/20 Rx nitroglycerin 0.4 mg sublingual 0.4 mg SUBLINGUAL Q5M PRN #25 tab 05/16/20 06/23/20 Rx tablet citalopram 40 mg tablet 40 mg PO QPM #90 tab 05/20/20 06/23/20 Rx fluticasone propionate 50 2 spray INTRANASAL Q12H #15.8 ml 05/31/20 06/23/20 Rx mcg/actuation nasal spray,suspension albuterol sulfate 2.5 mg INH QID PRN 06/23/20 06/23/20 History colestipol 2 g PO TID 06/23/20 06/23/20 History Patient History Medical History Altered mental status Anxiety Asthma RARELY NEEDS PRN INH Atrial fibrillation Paroxysmal, not on anticoagulation. Per cardio 12/25/15, "since she has not had a paroxysmal for many years, no therapy will be initiated today. Given her elevated CHADSVASC score, though, would recommend anticoagulation therapy if she were to develop any recurrent episodes of A. fib in the future." Atrial fibrillation with rapid ventricular response Chronic back pain Chronic chest pain Has been evaluated by cardio, ruled to be non-cardiac in origin. Delayed effect of radiation Depression Diabetes mellitus, type 2 IDDM. HgA1C 6.6% 05/03/18 Diverticular disease GERD (gastroesophageal reflux disease) Hiatal hernia History of right breast cancer S/P RT MASTECTOMY, + CHEMO/RADIATION Hyperlipidemia Hypertension Hypotension Migraine Morbid obesity Myocardial Infarction > 20 YEARS AGO Nonobstructive atherosclerosis of coronary artery Per cath 2008 Osteoarthritis Sepsis Surgical History Fusion of spine History of appendectomy History of back surgery [place] PRES[facility] History of bilateral tubal ligation History of breast biopsy History of cardiac cath 2008 [facility] for chest pain. Non-obstructive CAD. "Non-cardiac chest pain." History of carpal tunnel release BL History of cataract surgery History of cholecystectomy History of dilatation and curettage History of hysterectomy History of partial gastrectomy History of right mastectomy NO BP/IV RUE History of tonsillectomy History of tooth extraction History of total knee replacement BL History of total shoulder replacement RT Family History Sister Family history of diabetes mellitus Breast cancer Daughter Family history of reaction to anesthesia SLOW TO WAKE UP Grandfather (Maternal) Myocardial infarction Denies family history of Ovarian cancer Prostate cancer Colorectal cancer Social History Smoking Status: Never smoker Second Hand Exposure: No; Do You Dip or Chew Tobacco: No; Hx Alcohol Use: No Hx Substance Use: No Preferred Language: Trinidadian Communication Ability: Effective Visual Impairment: No Limitations Hearing Ability: Normal Lead Caregiver Required: No Beliefs That Will Affect Care: None marital status: Current Living Situation: Spouse current occupational status: retired current occupation: retired [employer] Other Information That Helps Us Care for You: No Feels Safe at Home: Yes Safety Concerns: Feels Safe At This Time Childhood Exposure to Second-Hand Smoke: No Dental Care, Regularly: No Physical Activity Frequency: Does not Exercise Seatbelt Use: always Sunscreen Use: No Assistive Devices: Oxygen - Continuous and Walker Review of Systems Review of Systems: Other (Due to the COVID-19 diagnosis I did not personally interview the patient.) Physical Exam Physical Exam: Exam was not performed due to her COVID-19 diagnosis and lack of necessity for me to examine her from the cardiovascular standpoint. Results & Data ([facility]) Vital Signs (Past 12 Hours) Vital Signs Temp Pulse Pulse Resp BP BP Pulse Ox 06/30/20 09:10 112 H 21 162/71 H 95 06/30/20 08:41 36.9 C 06/30/20 08:00 114 H 30 H 159/73 H 93 06/30/20 07:22 112 H 06/30/20 07:07 37.6 C H 111 H 30 H 144/80 H 93 06/30/20 05:00 113 H 96 06/30/20 04:25 116 H 192/88 H 96 06/30/20 04:00 120 H 06/30/20 03:25 113 H 200/78 H 95 06/30/20 03:21 115 H 37 H 95 06/30/20 03:00 111 H 96 06/30/20 02:51 36.5 C 06/30/20 02:26 113 H 95 06/30/20 02:25 110 H 188/83 H 96 06/30/20 02:00 118 H 96 06/30/20 01:26 116 H 159/121 H 96 06/30/20 01:00 115 H 95 06/30/20 00:25 116 H 95/54 L 95 06/30/20 00:00 114 H 95 06/29/20 23:25 116 H 171/132 H 96 06/29/20 23:00 114 H 95 06/29/20 22:27 111 H 96 06/29/20 22:26 108 H 154/96 H 96 06/29/20 22:19 109 H 37 H 96 06/29/20 22:00 106 H 94 Laboratory Results Cardiac Enzymes 06/29/20 Range/Units 15:32 AST 155 H (15-37) U/L CBC 06/30/20 Range/Units 06:09 WBC 18.56 H (4.8-10.8) K/uL RBC 4.84 (4.2-5.4) M/uL Hgb 13.5 (12.0-16.0) g/dL Hct 41.5 (37-47) % Plt Count 144 (130-400) K/uL Neut # (Auto) 16.29 H (1.4-6.5) K/uL Lymph # (Auto) 0.79 L (1.2-3.4) K/uL [place] # (Auto) 1.43 H (0.11-0.59) K/uL Eos # (Auto) 0.00 (0-0.5) K/uL Baso # (Auto) 0.00 (0-0.2) K/uL Comprehensive Metabolic Panel 06/29/20 06/30/20 Range/Units 15:32 06:09 Sodium 131 L 133 L (136-145) mmol/L Potassium 4.2 3.7 (3.5-5.1) mmol/L Chloride 102 102 (98-107) mmol/L Carbon Dioxide 23 20 L (21-32) mmol/L BUN 36 H 45 H (7-18) mg/dl Creatinine 1.79 H D 1.57 H (0.6-1.2) mg/dl Glucose 197 H 287 H (70-99) mg/dl Calcium 8.0 L 7.9 L (8.5-10.1) mg/dl Direct Bilirubin 0.4 H (0-0.2) mg/dl AST 155 H (15-37) U/L ALT 38 (12-78) U/L Alkaline Phosphatase 109 (45-117) U/L Total Protein 7.2 (6.4-8.2) gm/dl Albumin 2.5 L (3.4-5.0) gm/dl Intake and Output 06/29/20 06/30/20 06/30/20 22:59 06:59 14:59 Intake Total 316.968 / 1463.735 290.6 / 1463.735 154.4 / 154.4 Output Total 350 / 650 250 / 650 125 / 125 Balance -33.032 / 813.735 40.6 / 813.735 29.4 / 29.4 Intake: IV 316.968 / 1463.735 290.6 / 1463.735 34.4 / 34.4 Amiodarone / D5w 360 mg In 200 198.135 / 398.135 200 / 398.135 ml @ 0.5 MG/MIN 16.667 mls/hr IV .Q12H [facility] Rx#:[id number] dilTIAZem HCL 125 mg In 118.833 / 215.600 90.6 / 215.600 34.4 / 34.4 Dextrose 5% 100 ml @ 15 MG/HR 15 mls/hr IV .Q8H20M [facility] Rx#: [id number] Oral 120 / 120 Output: Urine Amount (Catheter) 350 / 600 250 / 600 125 / 125 Hess/Indwelling 350 / 600 250 / 600 125 / 125 Other: Weight 119.1 kg Weight Measurement Method [facility] Care Time/CCT Total # of Minutes Spent Total Time Spent with Patient: Total time spent is greater than 50% in coordination of care (as documented) at patient's floor/unit and/or counseling patient: Coding Level of Care Code 56450 Initial Inpt Care Lvl 2 Diagnoses Atrial fibrillation with rapid ventricular response I48.91 Acute exacerbation of CHF (congestive heart failure) I50.33 Heart failure type: diastolic CAD (coronary artery disease) I25.10 Associated angina: without angina Coronary Disease-Associated Artery/Lesion type: [place] artery [place] vs. transplanted heart: [place] heart (1) Acute exacerbation of CHF (congestive heart failure) Heart failure type: diastolic Qualified Code(s): I50.33 - Acute on chronic diastolic (congestive) heart failure (2) CAD (coronary artery disease) Associated angina: without angina Coronary Disease-Associated Artery/Lesion type: [place] artery [place] vs. transplanted heart: [place] heart Qualified Code(s): I25.10 - Atherosclerotic heart disease of [place] coronary artery without angina pectoris
--- NOTE | 2020-06-30 10:04 | Pharmacy Report ---
Pharmacy Glycemic Short Note 2 - Date of Service June 30, 2020 - Glycemic Short BSG Results (Last 24 hours): 06/29/20 06/29/20 06/29/20 12:18 15:32 18:10 Glucose 197 H POC Glucose 187 H 221 H 06/29/20 06/30/20 06/30/20 23:57 06:09 06:37 Glucose 287 H POC Glucose 275 H 283 H OUTPATIENT ANTIDIABETIC REGIMEN: * Lantus 30 units BID ASSESSMENT: 06/30/20 * Blood sugars above goal, dose of Lantus was reduced in half yesterday for NPO status, will increase for hyperglycemia, patient remains NPO * Day #5 IV Dexamethasone 6mg daily * Tighten CR/CF * IV Vancomycin + Azithromycin added, positive BCs 06/29/20 * 80 year old female, morbid obese, DM, AF, and COVID19 pneumonia, on IV Dexamethasone 6mg IV daily * Patient was on Lantus 30 units BID since admission, but was changed to 15 units BID for change to NPO status today * Continue reduced dose of basal for NPO * Tighten CF/CR based on patient's weight and stress * Consider adding NPH with steroids tomorrow morning depending how patient resp onds while NPO * Change goal range, ADA & AACE recommend a goal blood sugar range 140-180 mg/dl for the majority of critically ill & non-critically ill patients. However, more stringent targets may be selected in individual cases. Will utilize more stringent goal of 110-140mg/dl based on patient age & comorbidities. Additionally, tighter glycemic control is warranted to facilitate wound/infection healing. PLAN FOR INPATIENT GLYCEMIC CONTROL: * Basal insulin -increase * Lantus 25 units SQ BID * Bolus insulin -tighten CF/CR * NovoLog per scale ACHS or Q6hrs while NPO * Goal Range: Low 110 mg/dL - High 140 mg/dL * Correction Factor: 10 mg/dL/unit * Nutritional / Prandial insulin per carb ratio of 1 unit per 3 grams CHO consumed PLAN FOR DISCHARGE: * A1c 7.0% at goal, likely continue Lantus 30 units SQ BID upon discharge
--- NOTE | 2020-06-30 10:32 | Pharmacy Report ---
Pharmacy Abx Dose Short Note - Date of Service June 30, 2020 - Assessment & Plan Assessment 80 year old female presenting with increasing shortness of breath. PMHx significant for DM, heart failure, morbid obesity, afib, CAD. Previously on cefepime for possible pulmonary infection, vancomycin added today due positive blood cultures. Patient also spiking fevers. Plan Vancomycin * Loading dose of 2750 mg x 1 (~23 mg/kg) this AM * Will dose with vancomycin 1500 (~13 mg/kg) iv q 24 hrs * Estimated kinetics: t1/2~20 hrs, ke~0.033 * Will hold on ordering level as likely we will be able to deescalate once cultures finalize Pharmacy will continue to follow and will adjust dose/frequency as necessary. Thank you.
[2020-06-30] MEDS ORDERED: METOPROLOL SUCC 50MG EXT REL TAB PO STA (11:18)
--- NOTE | 2020-06-30 11:20 | Hospitalist Progress Note ---
Date of Service June 30, 2020 Assessment & Plan (1) Sepsis: most likely source is skin abscess over right chest wall wound from mastectomy site/wound has been ongoing issue for years, follows with wound clinic, has seen plastic surgery in the clinic in the past blood cultures growing MSSA both bottles add Vancomcyin IV today WBC 18k with 87% PMN, no fever feels better overall likely stop Cefepime after today with no evidence of gram neg infection (2) Atrial fibrillation with rapid ventricular response: Occurred morning of 06/29, likely triggered by sepsis, MSSA bacteremia h/o paroxysmal afib for which she took Toprol 50mg daily did not respond to Diltiazem bolus and drip, amiodarone bolus and drip and Digoxin pushes cardioverted at the bedside with 100J, successful, sinus tachycardia at 105 Lovenox 1mg/kg for now, will transition to Eliquis in next few days downgrade to PCU today currently on Toprol 100mg daily, Diltiazem 15mg/hr, Amiodarone 0.5mg/hr waiting to hear what Dr. Graff recommends (3) Hypotension: likely from RVR and numerous medications for rate control also due to sepsis responded to NSS bolus and cardioversion now hypertensive, 180's systolic (4) Respiratory alkalosis: hyperventilating on 06/29 PCO2 down into the 20's, PaO2 is 60s CXR is relatively clear likely due to anxiety, sepsis, RVR completely resolved today, RR in teens (5) Acute kidney injury: Cr jamia from 1.1 to 1.7 on 06/29, likely from hypotension, sepsis check UA thomas placed repeat BMP today with Cr down to 1.5, non-oliguric, K stable (6) COVID-19: saturations dropped a little, below 94% intermittently continue dexamethasone 6mg IV daily, complete 7-10 days, day 5 today she tends to drop at night, likely has undiagnosed KHLOE no infiltrates on CXR 06/29, do not suspect that respiratory distress due to COVID (7) Hypertension: quite elevated today, 187 systolic despite Toprol 50mg and Diltiazem 15mg/hr will increase Toprol to 100mg, gave additional 50mg now will defer to Dr. Graff on what he wants to do with Diltiazem and BP (8) Depression: Chronic -Continue Citalopram (9) COPD (chronic obstructive pulmonary disease): Chronic. Patient reports some mild SOB. No wheezing present on exam -Continue Fluticasone/Vilanterol -Continue Albuterol (10) Diastolic congestive heart failure: no pulmonary edema on CXR on 06/29 gave Lasix 40mg IV x 1 but no response likely euvolemic resume Lasix PO tomorrow AM (11) Hypercholesteremia: Chronic -Continue Atorvastatin (12) Diabetes mellitus type 2, insulin dependent: increase Lantus back up to 30 BID since she can eat again NSS changed to ACHS -Check A1C : 7.0% -Continue Gabapentin for neuropathy (13) Mild CAD: Chronic. Stable. Troponin is unremarkable on admission -Continue ASA 81mg po daily -Continue Atorvastatin no chest pressure with rates in 160's troponin negative (14) GERD (gastroesophageal reflux disease): Chronic. Well controlled -Continue Protonix 40mg po daily F/E/N - Heplock. AHA/CC diet as tolerated Ppx - Lovenox 40 BID Code- DNR/DNI per discussion with patient Admission and Anticipated Discharge Date Admission Date: June 23, 2020 Subjective patient feels so much better today, she is sitting up in a chair, she is hungry and thirsty she is breathing comfortably on 3L, 98%, RR is down to 18 blood cultures growing MSSA, looks like etiology is right chest wound, having purulent drainage added Vancomycin this morning to Cefepime no chest pain, sinus tach 100-105, no afib since cardioversion yesterday WBC is 18k with 87% PMN, Hb 13.5, plts 144k Cr 1.57, K 3.7, lactic 2.2 this morning, procalcitonin 8.43 Review of Systems Review of Systems: All systems reviewed & are unremarkable except as noted in Subjective Constitutional: + fatigue and + weakness; no fever and no sweats Respiratory: no cough and no dyspnea Cardiovascular: no chest pain and no edema Gastrointestinal: no abdominal pain, no nausea, no vomiting, no constipation and no diarrhea/loose stools Integumentary: + wounds (right chest wall, from prior mastectomy) Physical Exam Constitutional: well developed, + obese and + frail appearing; no acute distress Neck: trachea midline, no thyromegaly Respiratory: normal respiratory effort, lungs clear to auscultation no respiratory distress and no labored breathing Cardiovascular: Rate/Rhythm: regular rhythm and + tachycardic (100-105) Heart Sounds: normal S1 and normal S2; no murmur Extremities: normal capillary refill; no edema Gastrointestinal (Abdomen): normal bowel sounds, soft, nontender, no hepatosplenomegaly Musculoskeletal: Head/Neck/Chest: normocephalic, head atraumatic and neck supple Extremities: extremities normal to inspection and + abnormal strength (generalized weakness) Skin: no rashes, warm and dry + wound (right chest wall, approx [id number], some purulent drainage, packed) Neurologic: patellar DTR's 2+ bilat, sensation intact and PERRL, EOMI, accommodation nl, no face palsy, no dysarthria Psychiatric: Orientation: alert and oriented x 3 Affect: + anxious affect Lymphatic: no cervical or axillary lymphadenopathy Results & Data Results & Data ([facility]) Vital Signs (Past 12 Hours) Vital Signs Temp Pulse Pulse Resp BP BP Pulse Ox 06/30/20 11:07 37.1 C 106 H 18 187/85 H 100 06/30/20 10:02 105 H 21 162/71 H 95 06/30/20 10:00 105 H 23 91 06/30/20 09:45 104 H 18 95 06/30/20 09:30 108 H 18 95 06/30/20 09:15 105 H 17 95 06/30/20 09:12 118 H 24 162/71 H 95 06/30/20 09:10 112 H 21 162/71 H 95 06/30/20 09:00 113 H 24 95 06/30/20 08:45 108 H 23 94 06/30/20 08:41 36.9 C 06/30/20 08:30 108 H 19 95 06/30/20 08:19 110 H 25 H 186/76 H 95 06/30/20 08:15 114 H 19 94 06/30/20 08:00 120 H 114 H 26 H 159/73 H 95 06/30/20 07:45 115 H 94 06/30/20 07:30 108 H 94 06/30/20 07:25 110 H 159/73 H 94 06/30/20 07:22 112 H 06/30/20 07:15 113 H 95 06/30/20 07:10 06/30/20 07:09 111 H 144/80 H 94 06/30/20 07:07 37.6 C H 111 H 111 H 30 H 144/80 H 95 06/30/20 07:00 116 H 95 06/30/20 06:45 115 H 95 06/30/20 06:30 116 H 96 06/30/20 06:25 113 H 96 06/30/20 06:15 114 H 96 06/30/20 06:00 114 H 95 06/30/20 05:45 114 H 96 06/30/20 05:30 116 H 95 06/30/20 05:25 115 H 171/114 H 96 06/30/20 05:15 115 H 95 06/30/20 05:00 113 H 96 06/30/20 04:25 116 H 192/88 H 96 06/30/20 04:00 120 H 95 06/30/20 03:25 113 H 200/78 H 95 06/30/20 03:21 115 H 37 H 95 06/30/20 03:00 111 H 96 06/30/20 02:51 36.5 C 06/30/20 02:26 113 H 95 06/30/20 02:25 110 H 188/83 H 96 06/30/20 02:00 118 H 96 06/30/20 01:26 116 H 159/121 H 96 06/30/20 01:00 115 H 95 06/30/20 00:25 116 H 95/54 L 95 06/30/20 00:00 114 H 95 06/29/20 23:25 116 H 171/132 H 96 Pulse Ox 06/30/20 11:07 06/30/20 10:02 06/30/20 10:00 06/30/20 09:45 06/30/20 09:30 06/30/20 09:15 06/30/20 09:12 06/30/20 09:10 06/30/20 09:00 06/30/20 08:45 06/30/20 08:41 06/30/20 08:30 06/30/20 08:19 06/30/20 08:15 06/30/20 08:00 06/30/20 07:45 06/30/20 07:30 06/30/20 07:25 06/30/20 07:22 06/30/20 07:15 06/30/20 07:10 95 06/30/20 07:09 06/30/20 07:07 06/30/20 07:00 06/30/20 06:45 06/30/20 06:30 06/30/20 06:25 06/30/20 06:15 06/30/20 06:00 06/30/20 05:45 06/30/20 05:30 06/30/20 05:25 06/30/20 05:15 06/30/20 05:00 06/30/20 04:25 06/30/20 04:00 06/30/20 03:25 06/30/20 03:21 06/30/20 03:00 06/30/20 02:51 06/30/20 02:26 06/30/20 02:25 06/30/20 02:00 06/30/20 01:26 06/30/20 01:00 06/30/20 00:25 06/30/20 00:00 06/29/20 23:25 Laboratory Results Laboratory Results - last 24 hr 06/29/20 06/29/20 06/29/20 08:29 12:18 13:52 WBC RBC Hgb Hct MCV MCH MCHC RDW Std Deviation RDW Coeff of Erin Plt Count MPV Immature Gran % (Auto) Neut % (Auto) Lymph % (Auto) Bollinger % (Auto) Eos % (Auto) Baso % (Auto) Neut # (Auto) Lymph # (Auto) Bollinger # (Auto) Eos # (Auto) Baso # (Auto) Immature Gran # (Auto) ABG pH ABG pCO2 ABG pO2 ABG HCO3 ABG O2 Saturation ABG Base Excess Pedrito Test Barometric Pressure Oxygen Given Sodium Potassium Chloride Carbon Dioxide Anion Gap BUN Creatinine Est Cr Clr Drug Dosing Est GFR ( Amer) Est GFR (Non-Af Amer) BUN/Creatinine Ratio Glucose POC Glucose 187 H Lactate 2.2 H* Calcium Phosphorus Magnesium Total Bilirubin Direct Bilirubin AST ALT Alkaline Phosphatase Total Protein Albumin Procalcitonin TSH Nasal Screen MRSA (PCR) Bld Cult Staph aureus PCR Positive A Blood Culture MRSA PCR Negative 06/29/20 06/29/20 06/29/20 13:52 15:32 15:32 WBC RBC Hgb Hct MCV MCH MCHC RDW Std Deviation RDW Coeff of Erin Plt Count MPV Immature Gran % (Auto) Neut % (Auto) Lymph % (Auto) Bollinger % (Auto) Eos % (Auto) Baso % (Auto) Neut # (Auto) Lymph # (Auto) Bollinger # (Auto) Eos # (Auto) Baso # (Auto) Immature Gran # (Auto) ABG pH ABG pCO2 ABG pO2 ABG HCO3 ABG O2 Saturation ABG Base Excess Pedrito Test Barometric Pressure Oxygen Given Sodium 131 L Potassium 4.2 Chloride 102 Carbon Dioxide 23 Anion Gap 7.0 BUN 36 H Creatinine 1.79 H D Est Cr Clr Drug Dosing 32.0 Est GFR ( Amer) 30.3 Est GFR (Non-Af Amer) 26.1 BUN/Creatinine Ratio 20.2 H Glucose 197 H POC Glucose Lactate 2.5 H* Calcium 8.0 L Phosphorus Magnesium Total Bilirubin 0.9 Direct Bilirubin 0.4 H AST 155 H ALT 38 Alkaline Phosphatase 109 Total Protein 7.2 Albumin 2.5 L Procalcitonin TSH 2.560 Nasal Screen MRSA (PCR) Bld Cult Staph aureus PCR Blood Culture MRSA PCR 06/29/20 06/29/20 06/29/20 15:48 18:10 18:50 WBC RBC Hgb Hct MCV MCH MCHC RDW Std Deviation RDW Coeff of Erin Plt Count MPV Immature Gran % (Auto) Neut % (Auto) Lymph % (Auto) Bollinger % (Auto) Eos % (Auto) Baso % (Auto) Neut # (Auto) Lymph # (Auto) Bollinger # (Auto) Eos # (Auto) Baso # (Auto) Immature Gran # (Auto) ABG pH 7.49 H ABG pCO2 27 L ABG pO2 69 L ABG HCO3 21 ABG O2 Saturation 95.0 ABG Base Excess -1.4 Pedrito Test Pos Barometric Pressure 729.5 Oxygen Given 4L Sodium Potassium Chloride Carbon Dioxide Anion Gap BUN Creatinine Est Cr Clr Drug Dosing Est GFR ( Amer) Est GFR (Non-Af Amer) BUN/Creatinine Ratio Glucose POC Glucose 221 H Lactate Calcium Phosphorus Magnesium Total Bilirubin Direct Bilirubin AST ALT Alkaline Phosphatase Total Protein Albumin Procalcitonin TSH Nasal Screen MRSA (PCR) Negative Bld Cult Staph aureus PCR Blood Culture MRSA PCR 06/29/20 06/30/20 06/30/20 23:57 06:09 06:09 WBC 18.56 H RBC 4.84 Hgb 13.5 Hct 41.5 MCV 85.7 MCH 27.9 MCHC 32.5 RDW Std Deviation 47.1 H RDW Coeff of Erin 14.8 H Plt Count 144 MPV 11.1 H Immature Gran % (Auto) 0.3 Neut % (Auto) 87.7 Lymph % (Auto) 4.3 Bollinger % (Auto) 7.7 Eos % (Auto) 0.0 Baso % (Auto) 0.0 Neut # (Auto) 16.29 H Lymph # (Auto) 0.79 L Bollinger # (Auto) 1.43 H Eos # (Auto) 0.00 Baso # (Auto) 0.00 Immature Gran # (Auto) 0.05 H ABG pH ABG pCO2 ABG pO2 ABG HCO3 ABG O2 Saturation ABG Base Excess Pedrito Test Barometric Pressure Oxygen Given Sodium 133 L Potassium 3.7 Chloride 102 Carbon Dioxide 20 L Anion Gap 11.0 BUN 45 H Creatinine 1.57 H Est Cr Clr Drug Dosing 36.4 Est GFR ( Amer) 35.5 Est GFR (Non-Af Amer) 30.6 BUN/Creatinine Ratio 28.9 H Glucose 287 H POC Glucose 275 H Lactate Calcium 7.9 L Phosphorus 2.8 Magnesium 2.3 Total Bilirubin Direct Bilirubin AST ALT Alkaline Phosphatase Total Protein Albumin Procalcitonin TSH Nasal Screen MRSA (PCR) Bld Cult Staph aureus PCR Blood Culture MRSA PCR 06/30/20 06/30/20 06/30/20 06:09 06:09 06:37 WBC RBC Hgb Hct MCV MCH MCHC RDW Std Deviation RDW Coeff of Erin Plt Count MPV Immature Gran % (Auto) Neut % (Auto) Lymph % (Auto) Bollinger % (Auto) Eos % (Auto) Baso % (Auto) Neut # (Auto) Lymph # (Auto) Bollinger # (Auto) Eos # (Auto) Baso # (Auto) Immature Gran # (Auto) ABG pH ABG pCO2 ABG pO2 ABG HCO3 ABG O2 Saturation ABG Base Excess Pedrito Test Barometric Pressure Oxygen Given Sodium Potassium Chloride Carbon Dioxide Anion Gap BUN Creatinine Est Cr Clr Drug Dosing Est GFR ( Amer) Est GFR (Non-Af Amer) BUN/Creatinine Ratio Glucose POC Glucose 283 H Lactate 2.2 H* Calcium Phosphorus Magnesium Total Bilirubin Direct Bilirubin AST ALT Alkaline Phosphatase Total Protein Albumin Procalcitonin 8.43 H TSH Nasal Screen MRSA (PCR) Bld Cult Staph aureus PCR Blood Culture MRSA PCR Microbiology 06/29/20 08:29 Blood Aerobic Blood Culture - Preliminary Staphylococcus species 06/29/20 08:29 Blood Aerobic Blood Culture - Preliminary Staphylococcus species 06/23/20 21:48 Blood Aerobic Blood Culture - Final No growth in Aerobic bottle after 5 days. 06/23/20 21:48 Blood Anaerobic Blood Culture - Final No growth in Anaerobic bottle after 5 days. 06/23/20 20:40 Blood Aerobic Blood Culture - Final No growth in Aerobic bottle after 5 days. 06/23/20 20:40 Blood Anaerobic Blood Culture - Final No growth in Anaerobic bottle after 5 days. 06/23/20 21:32 Urine,Clean Catch Urine Culture - Final More than three types of organisms present, all high counts mixed probable skin bertrand - No further identifications or sensitivities to follow. Medications Administered Current Inpatient Medications Acetaminophen (Acetaminophen 325 Mg Tab) 650 mg PO Q4H PRN PRN Reason: Pain or Fever Stop: 07/24/20 01:55 Last Admin: 06/30/20 07:59 Dose: 650 mg Documented by: Albuterol (Albuterol 0.083% Nebu Soln 3 Ml Vial) 2.5 mg INH QID PRN PRN Reason: Shortness Of Breath Stop: 07/24/20 01:55 Last Admin: 06/26/20 11:33 Dose: 2.5 mg Documented by: Albuterol (Albuterol Hfa 8 Gm Inhaler) 2 puffs INH BIDR PRN PRN Reason: Shortness Of Breath Or Wheezing Stop: 07/24/20 18:59 Aspirin (Aspirin 81 Mg Ectab) 81 mg PO DAILY ISAIAS Stop: 07/24/20 08:59 Last Admin: 06/29/20 10:09 Dose: Not Given Documented by: Atorvastatin Calcium (Atorvastatin 40 Mg Tab) 40 mg PO HS ISAIAS Stop: 07/24/20 20:59 Last Admin: 06/28/20 20:37 Dose: 40 mg Documented by: Citalopram Hydrobromide (Citalopram 40 Mg Tab) 40 mg PO QPM ISAIAS Stop: 07/24/20 20:59 Last Admin: 06/28/20 20:37 Dose: 40 mg Documented by: Dextrose (Dextrose 50% 50 Ml Syringe) 25 - 50 ml IV UD PRN; Protocol PRN Reason: Hypoglycemia Protocol Stop: 07/24/20 01:55 Enoxaparin Sodium (Enoxaparin 150 Mg/Ml Syr) 129 mg SQ Q12 [facility] Stop: 07/29/20 08:59 Last Admin: 06/30/20 08:00 Dose: 129 mg Documented by: Fluticasone Propionate (Fluticasone Propionate Na Spr 16 Gm Btl) 2 sprays NA Q12 ISAIAS Stop: 07/24/20 08:59 Last Admin: 06/30/20 08:00 Dose: 2 sprays Documented by: Fluticasone/Vilanterol (Fluticasone/Vilanterol 100/25mcg 14 Puffs/Inhaler) 1 puffs INH DAILY [facility] Stop: 07/24/20 08:59 Last Admin: 06/29/20 09:44 Dose: Not Given Documented by: Gabapentin (Gabapentin 600 Mg Tab) 1,200 mg PO BID [facility] Stop: 07/24/20 08:59 Last Admin: 06/29/20 10:10 Dose: Not Given Documented by: Glucagon (Glucagon For Inj 1 Mg Vial) 1 mg SQ UD PRN; Protocol PRN Reason: Hypoglycemia Protocol Stop: 07/24/20 01:55 Glucose (Glucose 10 Tabs/Tube) 4 - 8 tabs PO UD PRN; Protocol PRN Reason: Hypoglycemia Protocol Stop: 07/24/20 01:55 Diltiazem HCl 125 mg/ Dextrose 125 mls @ 15 mls/hr IV .Q8H20M ISAIAS; Protocol Stop: 07/29/20 07:49 Last Admin: 06/30/20 07:56 Dose: 15 mg/hr, 15 mls/hr Documented by: Amiodarone HCl/Dextrose (Nexterone / D5w) 360 mg in 200 mls @ 16.667 mls/hr IV .Q12H [facility] Stop: 07/29/20 15:02 Last Admin: 06/30/20 02:48 Dose: 0.5 mg/min, 16.7 mls/hr Documented by: Pantoprazole Sodium 40 mg/ (Syringe) 10 mls @ 5 mls/min IV DAILY@1100 [facility] Stop: 07/29/20 10:59 Last Admin: 06/29/20 10:39 Dose: 5 mls/min Documented by: Dexamethasone 6 mg/ Syringe 1.5 mls @ 1 mls/min IV DAILY [facility]; Protocol Stop: 07/05/20 09:02 Last Admin: 06/30/20 08:00 Dose: 1 mls/min Documented by: Cefepime HCl 2,000 mg/ Syringe 20 mls @ 5 mls/min IV Q12H [facility]; Protocol Stop: 07/06/20 13:59 Last Admin: 06/30/20 03:17 Dose: 5 mls/min Documented by: Azithromycin 500 mg/ Dextrose 255 mls @ 127.5 mls/hr IV Q24H [facility]; Protocol Stop: 07/02/20 08:14 Vancomycin HCl 1,500 mg/ (Sodium Chloride) 530 mls @ 200 mls/hr IV Q24H [facility] Stop: 07/15/20 07:59 Insulin Aspart (Insulin Aspart 100 Units/Ml 3 Ml Pen) 0 units SC ACHS [facility] Stop: 07/30/20 11:29 Insulin Glargine (Insulin Glargine Solostar 100 Units/Ml 3 Ml Pen) 25 units SC BID [facility]; Protocol Stop: 07/30/20 08:59 Last Admin: 06/30/20 08:49 Dose: 25 units Documented by: Levalbuterol HCl (Levalbuterol 1.25mg/0.5ml Neb) 1.25 mg NEB Q6H PRN PRN Reason: Wheezing Stop: 07/29/20 15:14 Last Admin: 06/29/20 15:18 Dose: 1.25 mg Documented by: Metoprolol Succinate (Metoprolol Succ 50mg Ext Rel Tab) 100 mg PO DAILY [facility] Stop: 07/31/20 08:59 Miscellaneous (Carbohydrates For Hypoglycemia ) 15 - 30 gm PO UD PRN PRN Reason: Hypoglycemia Protocol Stop: 07/24/20 01:55 Miscellaneous Information (Pharmacy Glycemic Mgmt Consult) 1 ea N/A UD ISAIAS Stop: 07/29/20 13:32 Miscellaneous Information (Vancomycin Consult Active) 1 ea N/A UD PRN PRN Reason: Consult Stop: 07/30/20 07:46 Nitroglycerin (Nitroglycerin Sl 0.4 Mg/Tab Tab) 0.4 mg SL Q5M PRN PRN Reason: chest pain Stop: 07/24/20 01:55 Nystatin (Nystatin Powder 15gm Btl) 1 appln EXT BID [facility] Stop: 07/24/20 08:59 Last Admin: 06/30/20 08:02 Dose: 1 appln Documented by: Ondansetron HCl (Ondansetron Inj 2 Mg/Ml 2 Ml Vial) 4 mg IV Q6H PRN PRN Reason: Nausea Stop: 07/24/20 01:55 Last Admin: 06/24/20 12:34 Dose: 4 mg Documented by: PG Care Time/CCT Total # of Minutes Spent Total Time Spent with Patient: Total time spent is greater than 50% in coordination of care (as documented) at patient's floor/unit and/or counseling patient: Coding Level of Care Code 57597 Subseq Hosp Care Lvl 3 Diagnoses Sepsis A41.9 Atrial fibrillation with rapid ventricular response I48.91 Hypotension I95.9 Respiratory alkalosis E87.3 Acute kidney injury N17.9 COVID-19 U07.1 Hypertension I10 Hypertension type: essential hypertension Depression F32.9 Depression Type: major depressive disorder Major depression recurrence: unspecified whether recurrent Active/Remission status: remission status unspecified COPD (chronic obstructive pulmonary disease) J44.9 COPD type: unspecified COPD Diastolic congestive heart failure I50.32 Heart failure chronicity: chronic Hypercholesteremia E78.00 Diabetes mellitus type 2, insulin dependent E11.9; Z79.4 Mild CAD I25.10 GERD (gastroesophageal reflux disease) K21.9 Esophagitis presence: esophagitis presence not specified (1) Hypertension Hypertension type: essential hypertension Qualified Code(s): I10 - Essential (primary) hypertension (2) Depression Depression Type: major depressive disorder Major depression recurrence: unspecified whether recurrent Active/Remission status: remission status unspecified Qualified Code(s): F32.9 - Major depressive disorder, single episode, unspecified (3) COPD (chronic obstructive pulmonary disease) COPD type: unspecified COPD Qualified Code(s): J44.9 - Chronic obstructive pulmonary disease, unspecified (4) Diastolic congestive heart failure Heart failure chronicity: chronic Qualified Code(s): I50.32 - Chronic d iastolic (congestive) heart failure (5) GERD (gastroesophageal reflux disease) Esophagitis presence: esophagitis presence not specified Qualified Code(s): K21.9 - Gastro-esophageal reflux disease without esophagitis
[2020-06-30] MEDS: PANTOprazole 40 MG in SYRINGE 0 ML IV SCH (11:27)
[2020-06-30] MEDS ORDERED: POTASSIUM CHLORIDE CRTAB 20 MEQ TABCR PO SCH (12:00)
[2020-06-30] MEDS ORDERED: METOPROLOL TARTRATE 50 MG TAB PO STA (12:17)
[2020-06-30] MEDS ORDERED: POTASSIUM CHLORIDE CRTAB 20 MEQ TABCR PO ONE (13:00)
[2020-06-30] MEDS: INSULIN HUMAN NPH SC SCH (13:14)
--- NOTE | 2020-06-30 13:16 | Pulmonology Progress Note ---
Date of Service June 30, 2020 Assessment & Plan (1) Atrial fibrillation with rapid ventricular response: 80-year-old female with a past medical history of coronary disease, morbid obesity, hypertension and atrial fibrillation with evidence of sepsis and atrial fibrillation with rapid ventricular response requiring DC cardioversion Neurologic: Mental status has substantially improved today. Pulmonary: Currently using supplemental oxygen and saturating well on 2 L. Cardiovascular: Status post bedside DCCV on 06/29/2020. Continue with therapeutic anticoagulation and rate control with metoprolol and diltiazem. She is also on amiodarone. She remains in a sinus rhythm. She is hypertensive and her antihypertensive medications are being uptitrated. Gastrointestinal: Tolerating diet well. Renal: Mild hyponatremia seen likely related to hypervolemic hyponatremia. Creatinine is improved. Infectious disease: Blood cultures growing Staphylococcus species. Blood MRSA is positive. She is currently on vancomycin and azithromycin. Likely source of staph infection is from the chest wound from her prior mastectomy. Consider switching antibiotics to daptomycin. I do not think there is a current role for azithromycin. Infectious disease consultation may be beneficial. Hematologic: No significant issues at present. Endocrine: Hyperglycemia related to acute illness and Decadron. Will consult pharmacy for management. We will check a TSH. Prior TSH checked in November 2019 was within normal limits. Lines and tubes: Peripheral IVs in place. VTE prophylaxis: Full dose Lovenox therapy. CODE STATUS: Patient was previously a DNR/DNI during this hospitalization, but now full code. Family at bedside: None available to to the COVID-19 pandemic. Patient's is also unfortunately hospitalized for COVID-19. Disposition: Able to be downgraded to PCU. Discussed with the patient's hospitalist and bedside nurse. (2) Sepsis: (3) Hypotension: (4) COVID-19: (5) Altered mental status: Admission and Anticipated Discharge Date Admission Date: June 23, 2020 Subjective Patient seen and examined at the bedside. Per nursing, she has been doing well and tolerating her diet. She continues to be hypertensive and mildly tachycardic. She appears comfortable sitting in a chair at this time. Physical Exam Constitutional: Appears comfortable sitting in chair. Eyes: PERRL, conjunctivae normal, anicteric sclerae ENMT: Ears: + hearing impairment Neck: normal visual inspection Respiratory: normal respiratory effort; no retractions Cardiovascular: Rate/Rhythm: regular rhythm and + tachycardic Extremities: no edema Gastrointestinal (Abdomen): normal bowel sounds, soft, nontender, no hepatosplenomegaly Musculoskeletal: no cyanosis or clubbing, extremities motor strength 5/5 Skin: no rashes, warm and dry Neurologic: No obvious focal deficits Psychiatric: A+Ox3, euthymic affect Results & Data Results & Data ([facility]) Vital Signs (Past 12 Hours) Vital Signs Temp Pulse Pulse Resp BP BP BP 06/30/20 12:33 86 30 H 139/69 06/30/20 11:07 98.8 F 106 H 18 187/85 H 06/30/20 10:02 105 H 21 162/71 H 06/30/20 10:00 105 H 23 06/30/20 09:45 104 H 18 06/30/20 09:30 108 H 18 06/30/20 09:15 105 H 17 06/30/20 09:12 118 H 24 162/71 H 06/30/20 09:10 112 H 21 162/71 H 06/30/20 09:00 113 H 24 06/30/20 08:45 108 H 23 06/30/20 08:41 98.4 F 06/30/20 08:30 108 H 19 06/30/20 08:19 110 H 25 H 186/76 H 06/30/20 08:15 114 H 19 06/30/20 08:00 120 H 114 H 26 H 159/73 H 06/30/20 07:45 115 H 06/30/20 07:30 108 H 06/30/20 07:25 110 H 159/73 H 06/30/20 07:22 112 H 06/30/20 07:15 113 H 06/30/20 07:10 06/30/20 07:09 111 H 144/80 H 06/30/20 07:07 99.7 F H 111 H 111 H 30 H 144/80 H 06/30/20 07:00 116 H 06/30/20 06:45 115 H 06/30/20 06:30 116 H 06/30/20 06:25 113 H 06/30/20 06:15 114 H 06/30/20 06:00 114 H 06/30/20 05:45 114 H 06/30/20 05:30 116 H 06/30/20 05:25 115 H 171/114 H 06/30/20 05:15 115 H 06/30/20 05:00 113 H 06/30/20 04:25 116 H 192/88 H 06/30/20 04:00 120 H 06/30/20 03:25 113 H 200/78 H 06/30/20 03:21 115 H 37 H 06/30/20 03:00 111 H 06/30/20 02:51 97.7 F 06/30/20 02:26 113 H 06/30/20 02:25 110 H 188/83 H 06/30/20 02:00 118 H 06/30/20 01:26 116 H 159/121 H Pulse Ox Pulse Ox 06/30/20 12:33 95 06/30/20 11:07 100 06/30/20 10:02 95 06/30/20 10:00 91 06/30/20 09:45 95 06/30/20 09:30 95 06/30/20 09:15 95 06/30/20 09:12 95 06/30/20 09:10 95 06/30/20 09:00 95 06/30/20 08:45 94 06/30/20 08:41 06/30/20 08:30 95 06/30/20 08:19 95 06/30/20 08:15 94 06/30/20 08:00 95 06/30/20 07:45 94 06/30/20 07:30 94 06/30/20 07:25 94 06/30/20 07:22 06/30/20 07:15 95 06/30/20 07:10 95 06/30/20 07:09 94 06/30/20 07:07 95 06/30/20 07:00 95 06/30/20 06:45 95 06/30/20 06:30 96 06/30/20 06:25 96 06/30/20 06:15 96 06/30/20 06:00 95 06/30/20 05:45 96 06/30/20 05:30 95 06/30/20 05:25 96 06/30/20 05:15 95 06/30/20 05:00 96 06/30/20 04:25 96 06/30/20 04:00 95 06/30/20 03:25 95 06/30/20 03:21 95 06/30/20 03:00 96 06/30/20 02:51 06/30/20 02:26 95 06/30/20 02:25 96 06/30/20 02:00 96 06/30/20 01:26 96 PG Care Time/CCT Total # of Minutes Spent Total Time Spent with Patient: Total time spent is greater than 50% in coordination of care (as documented) at patient's floor/unit and/or counseling patient: Coding Level of Care Code 61163 Subseq Hosp Care Lvl 2 Diagnoses Atrial fibrillation with rapid ventricular response I48.91 Sepsis A41.9 Hypotension I95.9 COVID-19 U07.1 Altered mental status R41.82
[2020-06-30] MEDS ORDERED: INSULIN HUMAN REGULAR PER UNIT 10 UNITS in SYRINGE 9.9 ML IV ONE (17:15)
[2020-06-30] MEDS ORDERED: SODIUM CHLORIDE 0.9% 1000ML 500 ML IV ONE (18:18)
[2020-06-30] MEDS ORDERED: DIGOXIN 250 MCG in SYRINGE 9 ML IV STA (18:18)
[2020-06-30] MEDS ORDERED: DIGOXIN 250 MCG in SYRINGE 9 ML IV ONE (20:15)
[2020-06-30] MEDS: ATORVASTATIN 40 MG TAB PO SCH (20:43)
[2020-06-30] MEDS: GABAPENTIN 600 MG TAB PO SCH (20:44)
[2020-06-30] MEDS: CITALOPRAM 40 MG TAB PO SCH (20:44)
--- NOTE | 2020-06-30 21:21 | Electrocardiogram Report ---
Test Reason : Blood Pressure : / mmHG Vent. Rate : 175 BPM Atrial Rate : 159 BPM P-R Int : 000 ms QRS Dur : 096 ms QT Int : 262 ms P-R-T Axes : 000 -58 104 degrees QTc Int : 447 ms Atrial fibrillation with rapid ventricular response with premature ventricular or aberrantly conducte d complexes Left axis deviation Inferior infarct , age undetermined Anterior infarct , age undetermined Abnormal ECG When compared with ECG of 29-JUN-2020 06:30, (unconfirmed) No significant change was found Confirmed by Myles Graff ([id number]) on 06/30/2020 9:21:24 PM Referred By: REFERRED SELF Confirmed By:Myles Graff
--- NOTE | 2020-06-30 21:21 | Electrocardiogram Report ---
Test Reason : Blood Pressure : / mmHG Vent. Rate : 157 BPM Atrial Rate : 107 BPM P-R Int : 000 ms QRS Dur : 102 ms QT Int : 288 ms P-R-T Axes : 000 -61 102 degrees QTc Int : 465 ms Atrial fibrillation with rapid ventricular response with premature ventricular or aberrantly conducte d complexes Left axis deviation Abnormal ECG When compared with ECG of 28-JUN-2020 09:51, Atrial fibrillation has replaced Sinus rhythm Vent. rate has increased BY 65 BPM Confirmed by Myles Graff ([id number]) on 06/30/2020 9:20:32 PM Referred By: REFERRED SELF Confirmed By:Myles Graff
--- NOTE | 2020-06-30 21:37 | Electrocardiogram Report ---
Test Reason : Blood Pressure : / mmHG Vent. Rate : 108 BPM Atrial Rate : 108 BPM P-R Int : 152 ms QRS Dur : 108 ms QT Int : 362 ms P-R-T Axes : 046 -64 064 degrees QTc Int : 485 ms Poor data quality, interpretation may be adversely affected Sinus tachycardia Premature atrial complexes Left axis deviation Inferior infarct (cited on or before 29-JUN-2020) Possible Anterior infarct (cited on or before 29-JUN-2020) Abnormal ECG When compared with ECG of 29-JUN-2020 07:18, (unconfirmed) Sinus rhythm has replaced Atrial fibrillation Vent. rate has decreased BY 67 BPM Confirmed by Myles Graff ([id number]) on 06/30/2020 9:37:24 PM Referred By: REFERRED SELF Confirmed By:Myles Graff
--- NOTE | 2020-06-30 23:11 | Electrocardiogram Report ---
Test Reason : Blood Pressure : / mmHG Vent. Rate : 100 BPM Atrial Rate : 133 BPM P-R Int : 000 ms QRS Dur : 116 ms QT Int : 388 ms P-R-T Axes : 000 -62 104 degrees QTc Int : 500 ms Atrial fibrillation Left axis deviation Inferior infarct (cited on or before 29-JUN-2020) Abnormal ECG When compared with ECG of 29-JUN-2020 12:10, (unconfirmed) Atrial fibrillation has replaced Sinus rhythm Confirmed by Myles Graff ([id number]) on 06/30/2020 11:10:49 PM Referred By: REFERRED SELF Confirmed By:Myles Graff
[2020-07-01] MEDS: AMIODARONE / D5W 360 MG/200 ML BAG IV SCH ×2 (01:57→14:46)
[2020-07-01] MEDS: ACETAMINOPHEN 325 MG TAB PO PRN ×2 (04:16→12:23)
[2020-07-01] MEDS: METOPROLOL TARTRATE 1 MG/ML VIAL IV PRN (05:51)
[2020-07-01 06:10] LABS: Basophils # (auto) 0.02 K/uL (0-0.2); Basophils % (auto) 0.1 %; Hematocrit (blood only) 37.7 % (37-47); Hemoglobin 12.3 g/dL (12.0-16.0); Immature Granulocytes # (auto) 0.07 K/uL (0.00-0.02); Immature Granulocytes % (auto) 0.4 %; Lymphocytes # (auto) 1.41 K/uL (1.2-3.4); Lymphocytes % (auto) 7.3 %; Mean Corpuscular Hemoglobin 27.7 pg (25-34); Mean Corpuscular Hgb Conc 32.6 g/dL (32-36); Mean Corpuscular Volume 84.9 fL (80-100); Mean Platelet Volume 11.6 fL (7.4-10.4); Monocytes # (auto) 1.38 K/uL (0.11-0.59); Monocytes % (auto) 7.1 %; Neutrophils # (auto) 16.56 K/uL (1.4-6.5); Neutrophils % (auto) 85.1 %; Platelet Count 165 K/uL (130-400); RDW Coefficient of Variation 14.8 % (11.5-14.5); RDW Standard Deviation 46.4 fL (36.4-46.3); Red Blood Count 4.44 M/uL (4.2-5.4); White Blood Count 19.44 K/uL (4.8-10.8)
[2020-07-01 07:02] LABS: BUN Creatinine Ratio 39.4 (10-20); C Reactive Protein 28.2 mg/dl (0-0.29); Calcium 7.6 mg/dl (8.5-10.1); Creatinine Clr Calc Pharmacy 33.1 ml/min; Est GFR (African American) 32.7; Est GFR (Non-African American) 28.2; Potassium 4.5 mmol/L (3.5-5.1)
[2020-07-01] MEDS ORDERED: VANCOMYCIN HCL 1,500 MG in SODIUM CHLORIDE 0.9% 500 ML IV SCH (08:00)
[2020-07-01] MEDS: INSULIN GLARGINE SOLOSTAR 100 UNITS/ML 3 ML PEN SC SCH (08:35)
[2020-07-01] MEDS: dexAMETHasone 6 MG in SYRINGE 0 ML IV SCH (08:36)
[2020-07-01] MEDS: ENOXAPARIN INJ 120 MG/0.8 ML SYR SQ SCH ×2 (08:36→21:32)
[2020-07-01] MEDS: INSULIN ASPART 100 UNITS/ML 3 ML PEN SC SCH ×4 (08:48→21:32)
[2020-07-01] MEDS: INSULIN HUMAN NPH SC SCH (08:49)
[2020-07-01] MEDS: FLUTICASONE PROPIONATE NA SPR 16 GM BTL SCH ×2 (08:53→21:32)
[2020-07-01] MEDS: PANTOprazole 40 MG TAB PO SCH (08:53)
[2020-07-01] MEDS: GABAPENTIN 600 MG TAB PO SCH ×2 (08:54→21:32)
[2020-07-01] MEDS: FLUTICASONE/VILANTEROL 100/25MCG 14 PUFFS/INHALER INH SCH (08:54)
[2020-07-01] MEDS: ASPIRIN 81 MG ECTAB PO SCH (08:54)
[2020-07-01] MEDS: METOPROLOL SUCC 50MG EXT REL TAB PO SCH (08:55)
[2020-07-01] MEDS: NYSTATIN POWDER 15GM BTL EXT SCH ×2 (08:56→21:33)
[2020-07-01] MEDS: POTASSIUM CHLORIDE CRTAB 20 MEQ TABCR PO SCH (08:56)
[2020-07-01] MEDS ORDERED: FUROSEMIDE 40 MG TAB PO SCH (09:00)
--- NOTE | 2020-07-01 09:21 | Electrocardiogram Report ---
Test Reason : Blood Pressure : / mmHG Vent. Rate : 099 BPM Atrial Rate : 113 BPM P-R Int : 000 ms QRS Dur : 106 ms QT Int : 370 ms P-R-T Axes : 000 -46 094 degrees QTc Int : 474 ms Atrial fibrillation Left anterior fascicular block Abnormal ECG When compared with ECG of 30-JUN-2020 15:00, No significant change was found Confirmed by Shane Stock ([id number]) on 07/01/2020 9:20:52 AM Referred By: REFERRED SELF Confirmed By:Shane Stock
--- NOTE | 2020-07-01 13:51 | XRay Report ---
XR KUB/Abdomen 1 view CLINICAL HISTORY: LLQ abd pain COMPARISON STUDY: No previous studies for comparison. FINDINGS: The study was performed in a portable fashion. The upper abdomen and diaphragms are not inc luded on this study. There are postsurgical changes in the lumbar spine. There is no pathologic bowel dilatation. IMPRESSION: 1. Technically limited portable study. Nonobstructive bowel gas pattern. ACT 112: Negative or not required by law. Electronically signed by: Fletcher Fernando M.D. 07/01/2020 1:50 PM
[2020-07-01 14:04] LABS: D Dimer 2770 ug/L FEU (0-500)
--- NOTE | 2020-07-01 14:04 | Pharmacy Report ---
Pharmacy Glycemic Short Note 2 - Date of Service July 01, 2020 - Glycemic Short BSG Results (Last 24 hours): 06/30/20 06/30/20 06/30/20 16:59 17:00 18:01 Glucose POC Glucose 345 H* 404 H* 355 H* 06/30/20 06/30/20 07/01/20 18:03 20:22 05:47 Glucose 110 H POC Glucose 293 H 261 H 07/01/20 07/01/20 06:27 11:56 Glucose POC Glucose 117 H 142 H OUTPATIENT ANTIDIABETIC REGIMEN: * Lantus 30 units BID ASSESSMENT: 07/01 * BSG's responded well to addition of NPH yesterday * Will continue NPH but reduce Lantus slightly as there was a significant trend down in AM fasting BSG today * Novolog was tightened yesterday afternoon - remains appropriate PLAN FOR INPATIENT GLYCEMIC CONTROL: * Basal insulin -decrease * NPH 40 units daily * Lantus 0-20 units SQ BID depending on BSG * Bolus insulin -no change * NovoLog per scale ACHS or Q6hrs while NPO * Goal Range: Low 110 mg/dL - High 140 mg/dL * Correction Factor: 8 mg/dL/unit * Nutritional / Prandial insulin per carb ratio of 1 unit per 2 grams CHO consumed PLAN FOR DISCHARGE: * A1c 7.0% at goal, likely continue Lantus 30 units SQ BID upon discharge
[2020-07-01] MEDS: ceFAZolin 2000MG 2,000 MG/15 ML SYR IV SCH ×2 (15:30→23:00)
[2020-07-01] MEDS ORDERED: DIGOXIN 0.25 MG TAB PO SCH (16:00)
--- NOTE | 2020-07-01 16:15 | Surgery Consultation ---
Date of Consultation July 01, 2020 Assessment & Plan (1) Open wound of chest (wall), complicated: Wound culture obtained, resume [employer] as wound is open and there is no further purulent drainage. Wound surface area on par/slightly smaller than April. Continue IV abx, ID consult pending. Follow up with [facility] after discharge. History of Present Illness Reason for Consultation: chronic right breast wound Attending Physician: Darell Flores History of Present Illness Patient is an 80 year old female admitted to [facility] unit with history of type 2 diabetes, COPD, heart failure, a-fib, right breast CA/mastectomy/chemo/XRT 30 years ago, s/p right chest wall biopsy, I+D chronic calcified hematoma by Dr. Mcnair 05/2018 with subsequent chronic nonhealing right chest wound. 01/2019 I attempted delayed primary closure, which was unsuccessful. Since that time, she has followed at the wound care center on a palliative, monthly basis having refused evaluation for flap closure, HBO, and wound VAC as options for more aggressive attempts at healing. Last C visit was in late April. I am consulted regarding to evaluate possibility of abscess as patient has positive MSSA blood cultures. Currently on Ancef. Wound has not been cultured. Wound is being dressed with optifoam. History/PE performed from [facility] via ipad with nurse and patient at bedside. Allergies Allergy/AdvReac Type Severity Reaction Status Date / Time bee venom protein (honey bee) Allergy Severe SWELLING Verified 06/23/20 21:36 SOB iodine Allergy Severe RASH; Verified 06/23/20 21:36 SHORTNESS OF BREATH codeine Allergy Intermediate SWELLING Verified 06/23/20 21:36 metformin Allergy Intermediate Diarrhea Verified 06/23/20 21:36 Penicillins Allergy Intermediate RASH/HIVES Verified 06/23/20 21:36 chocolate flavor Allergy Mild Diarrhea Verified 06/29/20 08:20 procaine Allergy Mild NOVOCAINE-R Verified 06/23/20 21:36 AKILAH Cephalosporins Allergy Unknown UNKNOWN Verified 07/01/20 14:50 clarithromycin Allergy Unknown Unknown Verified 06/29/20 08:20 shellfish derived Allergy Unknown Unknown Verified 06/24/20 13:45 Home Medications Medication Instructions Recorded Confirmed Type ipratropium bromide 21 mcg (0.03 2 sprays INTNAS TID PRN #30 ml 10/28/18 06/23/20 Rx %) nasal spray Lift Chair #1 ea 03/09/19 05/29/20 Rx aspirin 81 mg tablet,delayed 81 mg PO DAILY 05/02/19 06/23/20 History release albuterol sulfate 90 mcg/actuation 2 puffs INH QID PRN #8 gm 06/06/19 06/23/20 Rx aerosol inhaler pantoprazole 40 mg tablet,delayed 40 mg PO QAM #90 tab 06/06/19 06/23/20 Rx release tramadol 50 mg tablet 50 - 100 mg PO Q6 PRN #30 tab 06/26/19 06/23/20 Rx metoprolol succinate 50 mg 50 mg PO DAILY #60 tab 07/04/19 06/23/20 Rx tablet,extended release 24 hr nystatin 100,000 unit/gram topical 1 appln TOP BID 21 Days #30 gm 08/11/19 06/23/20 Rx powder nystatin 100,000 unit/gram topical 1 appln TOP BID #60 gm 08/28/19 06/23/20 Rx cream gabapentin 600 mg tablet 1,200 mg PO BID #360 tab 08/31/19 06/23/20 Rx potassium chloride 10 mEq 10 meq PO QAM #90 tab 08/31/19 06/23/20 Rx tablet,extended release atorvastatin 40 mg tablet 40 mg PO HS #90 tab 10/12/19 06/23/20 Rx furosemide 40 mg tablet 40 mg PO QAM #90 tab 10/16/19 06/23/20 Rx insulin glargine 100 unit/mL 30 unit SUBCUT BID #20 ml 11/15/19 06/23/20 Rx subcutaneous solution lancets 30 gauge #100 ea 11/15/19 05/29/20 Rx meloxicam 7.5 mg tablet 7.5 mg PO BID PRN #60 tab 12/19/19 06/23/20 Rx cyclobenzaprine 5 mg tablet 5 mg PO TID PRN #30 tab 12/27/19 06/23/20 Rx docusate sodium 100 mg capsule 200 mg PO DAILY #60 cap 12/27/19 06/23/20 Rx fluticasone furoate 100 1 inh INH DAILY #28 ea 01/01/20 06/23/20 Rx mcg-vilanterol 25 mcg/dose inhalation powder insulin syringe-needle U-100 0.3 #100 ea 01/29/20 05/29/20 Rx mL 31 gauge x 07/14" metoclopramide HCl 10 mg tablet 10 mg PO QID PRN #120 tab 03/04/20 06/23/20 Rx flash glucose sensor #1 ea 03/14/20 05/29/20 Rx flash glucose scanning reader #1 ea 03/26/20 05/29/20 Rx nitroglycerin 0.4 mg sublingual 0.4 mg SUBLINGUAL Q5M PRN #25 tab 05/16/20 06/23/20 Rx tablet citalopram 40 mg tablet 40 mg PO QPM #90 tab 05/20/20 06/23/20 Rx fluticasone propionate 50 2 spray INTRANASAL Q12H #15.8 ml 05/31/20 06/23/20 Rx mcg/actuation nasal spray,suspension albuterol sulfate 2.5 mg INH QID PRN 06/23/20 06/23/20 History colestipol 2 g PO TID 06/23/20 06/23/20 History Patient History Medical History Altered mental status Anxiety Asthma RARELY NEEDS PRN INH Atrial fibrillation Paroxysmal, not on anticoagulation. Per cardio 12/25/15, "since she has not had a paroxysmal for many years, no therapy will be initiated today. Given her elevated CHADSVASC score, though, would recommend anticoagulation therapy if she were to develop any recurrent episodes of A. fib in the future." Atrial fibrillation with rapid ventricular response Chronic back pain Chronic chest pain Has been evaluated by cardio, ruled to be non-cardiac in origin. Delayed effect of radiation Depression Diabetes mellitus, type 2 IDDM. HgA1C 6.6% 05/03/18 Diverticular disease GERD (gastroesophageal reflux disease) Hiatal hernia History of right breast cancer S/P RT MASTECTOMY, + CHEMO/RADIATION Hyperlipidemia Hypertension Hypotension Migraine Morbid obesity Myocardial Infarction > 20 YEARS AGO Nonobstructive atherosclerosis of coronary artery Per cath 2008 Osteoarthritis Sepsis Surgical History Fusion of spine History of appendectomy History of back surgery [place]ARD[place] PRESENT History of bilateral tubal ligation History of breast biopsy History of cardiac cath 2008 [facility] for chest pain. Non-obstructive CAD. "Non-cardiac chest pain." History of carpal tunnel release BL History of cataract surgery History of cholecystectomy History of dilatation and curettage History of hysterectomy History of partial gastrectomy History of right mastectomy NO BP/IV RUE History of tonsillectomy History of tooth extraction History of total knee replacement BL History of total shoulder replacement RT Family History Sister Family history of diabetes mellitus Breast cancer Daughter Family history of reaction to anesthesia SLOW TO WAKE UP Grandfather (Maternal) Myocardial infarction Denies family history of Ovarian cancer Prostate cancer Colorectal cancer Social History Smoking Status: Never smoker Second Hand Exposure: No; Do You Dip or Chew Tobacco: No; Hx Alcohol Use: No Hx Substance Use: No Preferred Language: Wolof Communication Ability: Effective Visual Impairment: No Limitations Hearing Ability: Normal Neon Glass Blower Required: No Beliefs That Will Affect Care: None marital status: Current Living Situation: Spouse current occupational status: retired current occupation: retired [employer] Other Information That Helps Us Care for You: No Feels Safe at Home: Yes Safety Concerns: Feels Safe At This Time Childhood Exposure to Second-Hand Smoke: No Dental Care, Regularly: No Physical Activity Frequency: Does not Exercise Seatbelt Use: always Sunscreen Use: No Assistive Devices: Walker Physical Exam Physical Exam: in person exam not performed secondary to covid status wound examined via zoom, measures 5x2 cm (measurement from 05/21 4x2.7 cm) periwound with induration, unchanged from photo 05/21-most likely fibrosis from chronic radiation injury wound bed erythematous with some serous drainage described by RN. No purulence noted wound is tender to palpation per RN CT scan images 06/23 personally reviewed shows wound, no collection noted Results & Data ([facility]) Vital Signs (Past 12 Hours) Vital Signs Temp Pulse Pulse Resp BP BP BP 07/01/20 15:58 98.8 F 107 H 22 135/79 07/01/20 10:38 97.5 F L 98 H 25 H 153/75 H 07/01/20 08:00 98.4 F 115 H 102 H 24 158/107 H 07/01/20 05:51 115 H 139/72 Pulse Ox 07/01/20 15:58 95 07/01/20 10:38 100 07/01/20 08:00 97 07/01/20 05:51 PG Care Time/CCT Total # of Minutes Spent Total Time Spent with Patient: Total time spent is greater than 50% in coordination of care (as documented) at patient's floor/unit and/or counseling patient: Coding Level of Care Code 32713 Initial Inpt Care Lvl 1 Diagnoses Open wound of chest (wall), complicated S21.109A Laterality: right (1) Open wound of chest (wall), complicated Laterality: right
[2020-07-01] MEDS ORDERED: INSULIN GLARGINE SOLOSTAR 100 UNITS/ML 3 ML PEN SC SCH (21:00)
--- NOTE | 2020-07-01 21:21 | Hospitalist Progress Note ---
Date of Service July 01, 2020 Assessment & Plan (1) Bacteremia due to methicillin susceptible Staphylococcus aureus (MSSA): likely 2nd to chronic ulceration of right chest wall. appreciate Dr Oliveros's consultation; no surgery needed at this time. needs echo to r/o SBE. repeat blood cx's today. check baseline ESR. can narrow abx to IV ancef given MSSA rather than MRSA. (2) Acute respiratory failure with hypoxia: 2nd COVID-19 pneumonia +/- acute/chronic diastolic CHF. cont IV steroids for former. was diuresed earlier in stay for latter. O2 requirement stable. supportive care. (3) Sepsis: 2nd to bacteremia - MSSA - presumed source large, chronic right chest wall ulcer. see "bacteremia" above. (4) COVID-19: with PNEUMONIA given ongoing O2 requirement continue dexamethasone 6mg IV daily, complete 10 days; day 6 today (5) Atrial fibrillation with rapid ventricular response: previous h/o paroxysmal afib for which she took Toprol 50mg daily. dose increased to 100mg daily this admission. did not respond to Diltiazem bolus and drip, amiodarone bolus and drip and Digoxin pushes cardioverted at the bedside with 100J this admission but now back to a.fib given additional dig yesterday but dig level high -- hold today's dose cont amiodarone infusion Lovenox 1mg/kg for anticoagulation appreciate cardiology assistance with this complex issue (6) Hypotension: likely from a.fib RVR, bacteremia, and medications resolved (7) Acute kidney injury: peak Cr 1.79 on 06/29/20 likely sepsis-associated ATN Cr 1.6 today hold further diuresis - does not look volume overloaded today repeat BMP am (8) Hypertension: acceptable BPs today (9) Depression: Continue Citalopram (10) COPD (chronic obstructive pulmonary disease): No exacerbation at this time Continue Fluticasone/Vilanterol Continue Albuterol (11) Diastolic congestive heart failure: with possible acute on chronic s/p diuresis earlier this stay appears volume contracted or euvolemic today hold further diuresis re-eval in am (12) Hypercholesteremia: Chronic Continue Atorvastatin (13) Diabetes mellitus type 2, insulin dependent: A1C : 7.0% pharmacy managing - assistance appreciated control improving today (14) Mild CAD: no evidence of ACS or ischemic symptoms Continue ASA 81mg po daily Continue Atorvastatin echo pending (15) GERD (gastroesophageal reflux disease): Continue Protonix 40mg po daily (16) Morbid obesity with BMI of 45.0-49.9, adult: BMI 47 (17) Metabolic encephalopathy: 2nd MSSA bacteremia/sepsis COVMT hospital delirium etc supportive care avoid sedatives (18) DVT prophylaxis: lovenox 120mg BID left message for daughter - Rosa - on her voicemail evening of 07/01/20 Admission and Anticipated Discharge Date Admission Date: June 23, 2020 Subjective patient sitting in chair during visit c/o fatigue, weakness, tired some cough +ARENAS with going from bed to chair appetite fair at best mild LLQ abd pain - worse w/ eating? mild pleuritic pain left chest today as well tele - a.fib rates up to 110 Review of Systems Constitutional: + fatigue; no fever and no chills Ear, Nose, Mouth, Throat: no nasal congestion Respiratory: + cough, + dyspnea and + pain on inspiration Cardiovascular: as per Subjective / HPI, + chest pain and + dyspnea on exertion Gastrointestinal: + abdominal pain; no nausea, no vomiting and no diarrhea/loose stools Physical Exam Constitutional: + morbidly obese and + altered mental status; no acute distress ENMT: external ear and nose normal, oropharynx normal Respiratory: no respiratory distress Auscultation: + crackles (faint bases ); no wheezes Cardiovascular: Rate/Rhythm: + tachycardic and + irregularly irregular Heart Sounds: normal S1 and normal S2; no murmur Vessels: posterior tibial pulses present and dorsalis pedis pulses present Extremities: no edema Gastrointestinal (Abdomen): normal bowel sounds, soft, nontender, no hepatosplenomegaly Skin: 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; no odor, no purulent drainage Psychiatric: Orientation: alert, oriented to person and oriented to place; + not oriented to time Results & Data Results & Data ([facility]) Vital Signs (Past 12 Hours) Vital Signs Temp Pulse Pulse Resp BP BP Pulse Ox 07/01/20 19:30 36.8 C 86 20 133/98 100 07/01/20 16:00 106 H 07/01/20 15:58 37.1 C 107 H 22 135/79 95 07/01/20 10:38 36.4 C L 98 H 25 H 153/75 H 100 Laboratory Results Laboratory Results - last 24 hr 07/01/20 07/01/20 07/01/20 05:47 05:47 05:47 WBC 19.44 H RBC 4.44 Hgb 12.3 Hct 37.7 MCV 84.9 MCH 27.7 MCHC 32.6 RDW Std Deviation 46.4 H RDW Coeff of Erin 14.8 H Plt Count 165 MPV 11.6 H Immature Gran % (Auto) 0.4 Neut % (Auto) 85.1 Lymph % (Auto) 7.3 Jenkins % (Auto) 7.1 Eos % (Auto) 0.0 Baso % (Auto) 0.1 Neut # (Auto) 16.56 H Lymph # (Auto) 1.41 [place] # (Auto) 1.38 H Eos # (Auto) 0.00 Baso # (Auto) 0.02 Immature Gran # (Auto) 0.07 H ESR D-Dimer Sodium 134 L Potassium 4.5 D Chloride 105 Carbon Dioxide 24 Anion Gap 5.0 BUN 66 H Creatinine 1.68 H Est Cr Clr Drug Dosing 33.1 Est GFR ( Amer) 32.7 Est GFR (Non-Af Amer) 28.2 BUN/Creatinine Ratio 39.4 H Glucose 110 H POC Glucose Calcium 7.6 L C-Reactive Protein 28.20 H Procalcitonin Specimen Hemolysis Digoxin 2.6 H* 07/01/20 07/01/20 07/01/20 05:47 06:27 11:56 WBC RBC Hgb Hct MCV MCH MCHC RDW Std Deviation RDW Coeff of Erin Plt Count MPV Immature Gran % (Auto) Neut % (Auto) Lymph % (Auto) [place] % (Auto) Eos % (Auto) Baso % (Auto) Neut # (Auto) Lymph # (Auto) [place] # (Auto) Eos # (Auto) Baso # (Auto) Immature Gran # (Auto) ESR D-Dimer Sodium Potassium Chloride Carbon Dioxide Anion Gap BUN Creatinine Est Cr Clr Drug Dosing Est GFR ( Amer) Est GFR (Non-Af Amer) BUN/Creatinine Ratio Glucose POC Glucose 117 H 142 H Calcium C-Reactive Protein Procalcitonin 8.78 H Specimen Hemolysis Digoxin 07/01/20 07/01/20 07/01/20 13:20 13:20 16:27 WBC RBC Hgb Hct MCV MCH MCHC RDW Std Deviation RDW Coeff of Erin Plt Count MPV Immature Gran % (Auto) Neut % (Auto) Lymph % (Auto) [place] % (Auto) Eos % (Auto) Baso % (Auto) Neut # (Auto) Lymph # (Auto) [place] # (Auto) Eos # (Auto) Baso # (Auto) Immature Gran # (Auto) ESR 100 H D-Dimer 2770 H* Sodium Potassium Chloride Carbon Dioxide Anion Gap BUN Creatinine Est Cr Clr Drug Dosing Est GFR ( Amer) Est GFR (Non-Af Amer) BUN/Creatinine Ratio Glucose POC Glucose 188 H Calcium C-Reactive Protein Procalcitonin Specimen Hemolysis Digoxin 07/01/20 20:06 WBC RBC Hgb Hct MCV MCH MCHC RDW Std Deviation RDW Coeff of Erin Plt Count MPV Immature Gran % (Auto) Neut % (Auto) Lymph % (Auto) [place] % (Auto) Eos % (Auto) Baso % (Auto) Neut # (Auto) Lymph # (Auto) [place] # (Auto) Eos # (Auto) Baso # (Auto) Immature Gran # (Auto) ESR D-Dimer Sodium Potassium Chloride Carbon Dioxide Anion Gap BUN Creatinine Est Cr Clr Drug Dosing Est GFR ( Amer) Est GFR (Non-Af Amer) BUN/Creatinine Ratio Glucose POC Glucose 211 H Calcium C-Reactive Protein Procalcitonin Specimen Hemolysis Digoxin PG Care Time/CCT Total # of Minutes Spent Total Time Spent with Patient: Total time spent is greater than 50% in coordination of care (as documented) at patient's floor/unit and/or counseling patient: Coding Level of Care Code 81228 Subseq Hosp Care Lvl 3 Diagnoses Bacteremia due to methicillin susceptible Staphylococcus aureus (MSSA) R78.81; B95.61 Acute respiratory failure with hypoxia J96.01 Sepsis A41.01; R65.20 Sepsis type: methicillin susceptible Staphylococcus aureus Sepsis acute organ dysfunction status: with acute organ dysfunction Severe sepsis acute organ dysfunction type: unspecified Severe sepsis shock status: without septic shock COVID-19 U07.1 Atrial fibrillation with rapid ventricular response I48.91 Hypotension I95.9 Acute kidney injury N17.9 Hypertension I10 Hypertension type: essential hypertension Depression F32.9 Active/Remission status: remission status unspecified Depression Type: major depressive disorder Major depression recurrence: unspecified whether recurrent COPD (chronic obstructive pulmonary disease) J44.9 COPD type: unspecified COPD Diastolic congestive heart failure I50.32 Heart failure chronicity: chronic Hypercholesteremia E78.00 Diabetes mellitus type 2, insulin dependent E11.9; Z79.4 Mild CAD I25.10 GERD (gastroesophageal reflux disease) K21.9 Esophagitis presence: esophagitis presence not specified Morbid obesity with BMI of 45.0-49.9, adult E66.01; Z68.42 Metabolic encephalopathy G93.41 DVT prophylaxis Z29.9 (1) Diastolic congestive heart failure Heart failure chronicity: chronic Qualified Code(s): I50.32 - Chronic diastolic (congestive) heart failure (2) Depression Active/Remission status: remission status unspecified Depression Type: major depressive disorder Major depression recurrence: unspecified whether recurrent Qualified Code(s): F32.9 - Major depressive disorder, single episode, unspecified (3) Sepsis Sepsis type: methicillin susceptible Staphylococcus aureus Sepsis acute organ dysfunction status: with acute organ dysfunction Severe sepsis acute organ dysfunction type: unspecified Severe sepsis shock status: without septic shock Qualified Code(s): A41.01 - Sepsis due to Methicillin susceptible Staphylococcus aureus; R65.20 - Severe sepsis without septic shock (4) COPD (chronic obstructive pulmonary disease) COPD type: unspecified COPD Qualified Code(s): J44.9 - Chronic obstructive pulmonary disease, unspecified (5) GERD (gastroesophageal reflux disease) Esophagitis presence: esophagitis presence not specified Qualified Code(s): K21.9 - Gastro-esophageal reflux disease without esophagitis (6) Hypertension Hypertension type: essential hypertension Qualified Code(s): I10 - Essential (primary) hypertension
[2020-07-01] MEDS: CITALOPRAM 40 MG TAB PO SCH (21:32)
[2020-07-01] MEDS: ATORVASTATIN 40 MG TAB PO SCH (21:32)
[2020-07-02] MEDS: AMIODARONE / D5W 360 MG/200 ML BAG IV SCH ×2 (04:07→20:40)
[2020-07-02] MEDS: ceFAZolin 2000MG 2,000 MG/15 ML SYR IV SCH ×3 (05:40→21:19)
[2020-07-02 07:02] LABS: Basophils # (auto) 0.01 K/uL (0-0.2); Basophils % (auto) 0.1 %; Eosinophils # (auto) 0.01 K/uL (0-0.5); Eosinophils % (auto) 0.1 %; Hematocrit (blood only) 36.8 % (37-47); Hemoglobin 12.1 g/dL (12.0-16.0); Immature Granulocytes # (auto) 0.05 K/uL (0.00-0.02); Immature Granulocytes % (auto) 0.4 %; Lymphocytes # (auto) 0.66 K/uL (1.2-3.4); Lymphocytes % (auto) 5.2 %; Mean Corpuscular Hemoglobin 27.7 pg (25-34); Mean Corpuscular Hgb Conc 32.9 g/dL (32-36); Mean Corpuscular Volume 84.2 fL (80-100); Mean Platelet Volume 12.3 fL (7.4-10.4); Monocytes # (auto) 0.96 K/uL (0.11-0.59); Monocytes % (auto) 7.6 %; Neutrophils # (auto) 10.91 K/uL (1.4-6.5); Neutrophils % (auto) 86.6 %; Platelet Count 185 K/uL (130-400); RDW Coefficient of Variation 14.8 % (11.5-14.5); RDW Standard Deviation 45.7 fL (36.4-46.3); Red Blood Count 4.37 M/uL (4.2-5.4)
[2020-07-02 07:36] LABS: BUN Creatinine Ratio 42.2 (10-20); Calcium 8.2 mg/dl (8.5-10.1); Creatinine Clr Calc Pharmacy 35.1 ml/min; Est GFR (African American) 35.2; Est GFR (Non-African American) 30.4; Potassium 4.2 mmol/L (3.5-5.1)
[2020-07-02] MEDS: ENOXAPARIN INJ 120 MG/0.8 ML SYR SQ SCH ×2 (08:27→20:34)
[2020-07-02] MEDS: PANTOprazole 40 MG TAB PO SCH (08:27)
[2020-07-02] MEDS: POTASSIUM CHLORIDE CRTAB 20 MEQ TABCR PO SCH (08:28)
[2020-07-02] MEDS: ASPIRIN 81 MG ECTAB PO SCH (08:28)
[2020-07-02] MEDS: GABAPENTIN 600 MG TAB PO SCH ×2 (08:28→20:35)
[2020-07-02] MEDS: METOPROLOL SUCC 50MG EXT REL TAB PO SCH (08:28)
[2020-07-02] MEDS: dexAMETHasone 6 MG in SYRINGE 0 ML IV SCH (08:29)
[2020-07-02] MEDS: INSULIN GLARGINE SOLOSTAR 100 UNITS/ML 3 ML PEN SC SCH ×2 (08:29→20:37)
[2020-07-02] MEDS: FLUTICASONE PROPIONATE NA SPR 16 GM BTL SCH ×2 (08:29→20:37)
[2020-07-02] MEDS: FLUTICASONE/VILANTEROL 100/25MCG 14 PUFFS/INHALER INH SCH (08:30)
[2020-07-02] MEDS: INSULIN ASPART 100 UNITS/ML 3 ML PEN SC SCH ×4 (08:30→20:36)
[2020-07-02] MEDS: NYSTATIN POWDER 15GM BTL EXT SCH ×2 (08:31→20:38)
[2020-07-02] MEDS ORDERED: INSULIN HUMAN NPH SC SCH (09:00)
--- NOTE | 2020-07-02 09:35 | Cardiology Progress Note ---
Date of Service July 02, 2020 Assessment & Plan (1) Atrial fibrillation with rapid ventricular response: -carries a history of paroxysmal atrial fibrillation. -ventricular response mainly in the 80-100 bpm range. -would continue intravenous amiodarone for now. -could probably restart digoxin. -continue therapeutic Lovenox. (2) Acute exacerbation of CHF (congestive heart failure): -improved with diuresis. (3) CAD (coronary artery disease): -20-30% mid LAD and proximal RCA stenoses, August 2008. -continue medical management. Admission and Anticipated Discharge Date Admission Date: June 23, 2020 Subjective Patient complains of fatigue, weakness, and exertional dyspnea. Physical Exam Physical Exam: Exam per Dr. Armendariz as patient is in COVID isolation. Results & Data ([facility]) Vital Signs (Past 12 Hours) Vital Signs Temp Pulse Pulse Resp BP BP Pulse Ox 07/02/20 07:13 37.2 C 99 H 27 H 154/87 H 98 07/02/20 03:52 97 H 22 98 07/02/20 03:37 36.6 C 95 H 20 128/78 99 07/01/20 23:16 37.1 C 94 H 20 137/63 99 07/01/20 22:30 109 H 25 H 100 PG Care Time/CCT Total # of Minutes Spent Total Time Spent with Patient: Total time spent is greater than 50% in coordination of care (as documented) at patient's floor/unit and/or counseling patient: Coding Level of Care Code 79989 Subseq Hosp Care Lvl 3 Diagnoses Atrial fibrillation with rapid ventricular response I48.91 Acute exacerbation of CHF (congestive heart failure) I50.33 Heart failure type: diastolic CAD (coronary artery disease) I25.10 Associated angina: without angina Coronary Disease-Associated Artery/Lesion type: [place] artery [place] vs. transplanted heart: [place] heart (1) Acute exacerbation of CHF (congestive heart failure) Heart failure type: diastolic Qualified Code(s): I50.33 - Acute on chronic diastolic (congestive) heart failure (2) CAD (coronary artery disease) Associated angina: without angina Coronary Disease-Associated Artery/Lesion type: [place] artery [place] vs. transplanted heart: [place] heart Qualified Code(s): I25.10 - Atherosclerotic heart disease of [place] coronary artery without angina pectoris
--- NOTE | 2020-07-02 11:38 | Pharmacy Report ---
Pharmacy Glycemic Short Note 2 - Date of Service July 02, 2020 - Glycemic Short BSG Results (Last 24 hours): 07/01/20 07/01/20 07/01/20 11:56 16:27 20:06 Glucose POC Glucose 142 H 188 H 211 H 07/02/20 07/02/20 07/02/20 06:13 07:12 11:09 Glucose 199 H POC Glucose 187 H 248 H OUTPATIENT ANTIDIABETIC REGIMEN: * Lantus 30 units BID ASSESSMENT: 07/02 * BSGs reasonably well controlled yesterday * She did consume meals however PO intake was poor overall * 116 units SQ given over last 24 hrs * Fasting BSG elevated this AM with 85 units basal on board (NPH + Lantus) - will titrate NPH upwards today as mild-postprandial hyperglycemia noted x 2 yesterday. I am hesitant to increase Lantus as well given yesterday's fasting of 117 * As noted above, mild post-prandial hyperglycemia noted yesterday - will adjust NPH dose today as well as a small change to Novolog carb ratio 5/3 * BSG's responded well to addition of NPH yesterday * Will continue NPH but reduce Lantus slightly as there was a significant trend down in AM fasting BSG today * Novolog was tightened yesterday afternoon - remains appropriate PLAN FOR INPATIENT GLYCEMIC CONTROL: * Basal insulin -increase NPH, no change to Lantus * NPH 48 units daily with IV dexamethasone * Lantus 20 units SQ BID - hold if BSG less than 110 * Bolus insulin -increase * NovoLog per scale ACHS or Q6hrs while NPO * Goal Range: Low 110 mg/dL - High 140 mg/dL * Correction Factor: 8 mg/dL/unit * Nutritional / Prandial insulin per carb ratio of 1 unit per 1.7 grams CHO consumed PLAN FOR DISCHARGE: * A1c 7.0% at goal, likely continue Lantus 30 units SQ BID upon discharge
[2020-07-02] MEDS: DIGOXIN 0.125 MG TAB PO SCH (17:17)
--- NOTE | 2020-07-02 19:34 | Hospitalist Progress Note ---
Date of Service July 02, 2020 Assessment & Plan (1) Bacteremia due to methicillin susceptible Staphylococcus aureus (MSSA): Bacteremia likely 2nd to chronic ulceration of right chest wall. Culture from that wound also growing staph. Appreciate Dr Oliveros's consultation (plastics); no surgery needed at this time on the ulcer. Blood cultures are persistently positive. ESR 100. Thus, needs echo to r/o SBE. Will also obtain MRI l-spine w/ and w/o contrast - r/o epidural abscess, r/o d iskitis. Repeat blood cultures in am. Tina ID consultation & recs appreciated. Continue IV ancef. (2) Acute respiratory failure with hypoxia: 2nd COVID-19 pneumonia +/- acute/chronic diastolic CHF. today is day #10 of IV steroids - stop after today's dose. was diuresed earlier in stay for CHF. looks euvolemic today and thus defer on additional diuretics today. O2 requirement stable. supportive care. (3) Sepsis: 2nd to bacteremia - MSSA - presumed source is large, chronic right chest wall ulcer. see "bacteremia" above. COVID-19 also contributed to sepsis. (4) COVID-19: with PNEUMONIA given ongoing O2 requirement looking back through records 06/23/20 was first day of steroid therapy. thus, she has completed 10 days of steroids and will stop such after this am's dexamethasone dose. (5) Atrial fibrillation with rapid ventricular response: IMPROVING. previous h/o paroxysmal afib for which she took Toprol 50mg daily. dose increased to 100mg daily this admission. did not respond to Diltiazem bolus and drip, amiodarone bolus and drip, and Digoxin pushes. cardioverted at the bedside with 100J this admission by Dr Gomez. did not maintain NSR however. remains on amiodarone infusion and Lovenox 1mg/kg for anticoagulation. remains on toprol xl 100mg daily. will resume digoxin today albeit at lower dose of 0.125mg daily. appreciate cardiology assistance with this complex issue. needs echo to r/o SBE. (6) Hypotension: likely from a.fib RVR, bacteremia, and medications resolved (7) Acute kidney injury: peak Cr 1.79 on 06/29/20 likely sepsis-associated ATN Cr 1.5 today hold further diuresis repeat BMP am (8) Hypertension: acceptable BPs today (9) Depression: Continue Citalopram (10) COPD (chronic obstructive pulmonary disease): No exacerbation at this time Continue Fluticasone/Vilanterol Continue Albuterol Finished 10-day steroid course for COVID-19 pneumonia (11) Diastolic congestive heart failure: with possible acute on chronic s/p diuresis earlier this stay appears euvolemic today again hold additional diuresis (12) Hypercholesteremia: Hold Atorvastatin as recent ast/alt were high, likely from COVID. in am will repeat the ast/alt. (13) Diabetes mellitus type 2, insulin dependent: A1C : 7.0% pharmacy managing - assistance appreciated control should improve now that steroid course is complete (14) Mild CAD: no evidence of ACS or ischemic symptoms Continue ASA 81mg po daily Hold statin due to elevation of recent transaminases echo pending (15) GERD (gastroesophageal reflux disease): Continue Protonix 40mg po daily (16) Morbid obesity with BMI of 45.0-49.9, adult: BMI 47 (17) Metabolic encephalopathy: 2nd MSSA bacteremia/sepsis, COVID, hospital delirium, etc supportive care avoid sedatives IMPROVED today (18) Candidiasis of mouth and esophagus: nystatin 5cc qid swish/spit (19) DVT prophylaxis: lovenox 120mg BID spoke with Rosa spain; extensive update given questions answered Admission and Anticipated Discharge Date Admission Date: June 23, 2020 Subjective tele - a.fib rates 90s, some 100s patient sitting in chair much like yesterday eating fair "exhausted" and fatigued/weak still with considerable ARENAS with minimal activity mild chest tightness no abd pain today did have BM in the last 24 hours c/o neck and back pain has chronic low back pain but it is worse than baseline both have been worse since her fall just prior to admission Review of Systems Constitutional: + fatigue, + malaise, + weakness and + anorexia; no fever, no chills and no body aches Ear, Nose, Mouth, Throat: no nasal congestion Respiratory: + cough; no hemoptysis Cardiovascular: no chest pain and no edema Gastrointestinal: no abdominal pain, no nausea and no vomiting Physical Exam Constitutional: + morbidly obese; no acute distress and no altered mental status (more lucid today; knew the status of her 's condition (he is in ICU)) ENMT: Mouth: + oral mucosal abnormality (thrush on tongue ) Respiratory: no respiratory distress Auscultation: + crackles (faint bases ); no wheezes Cardiovascular: Rate/Rhythm: regular rate and + irregularly irregular Heart Sounds: normal S1 and normal S2; no murmur Vessels: posterior tibial pulses present and dorsalis pedis pulses present Extremities: no edema Gastrointestinal (Abdomen): normal bowel sounds, soft, nontender, no hepatosplenomegaly Musculoskeletal: Spine: + cervical spinal tenderness and + lumbar spinal tenderness Skin: right chest wall - large ulceration, clean, no drainage, no adjacent cellulitis, no fluctuance Psychiatric: Orientation: alert, oriented to person and oriented to place Results & Data Results & Data ([facility]) Vital Signs (Past 12 Hours) Vital Signs Temp Pulse Pulse Resp BP BP Pulse Ox 07/02/20 19:18 37.3 C 102 H 44 H 122/76 97 07/02/20 17:17 105 H 07/02/20 16:00 96 H 07/02/20 15:23 36.3 C L 96 H 36 H 137/74 96 07/02/20 11:31 36.5 C 97 H 26 H 115/73 95 07/02/20 08:00 97 H Laboratory Results Laboratory Results - last 24 hr 07/01/20 07/02/20 07/02/20 20:06 06:02 06:13 WBC 12.60 H RBC 4.37 Hgb 12.1 Hct 36.8 L MCV 84.2 MCH 27.7 MCHC 32.9 RDW Std Deviation 45.7 RDW Coeff of Erin 14.8 H Plt Count 185 MPV 12.3 H Immature Gran % (Auto) 0.4 Neut % (Auto) 86.6 Lymph % (Auto) 5.2 [place] % (Auto) 7.6 Eos % (Auto) 0.1 Baso % (Auto) 0.1 Neut # (Auto) 10.91 H Lymph # (Auto) 0.66 L [place] # (Auto) 0.96 H Eos # (Auto) 0.01 Baso # (Auto) 0.01 Immature Gran # (Auto) 0.05 H Sodium 135 L Potassium 4.2 Chloride 105 Carbon Dioxide 23 Anion Gap 7.0 BUN 67 H Creatinine 1.58 H Est Cr Clr Drug Dosing 35.1 Est GFR ( Amer) 35.2 Est GFR (Non-Af Amer) 30.4 BUN/Creatinine Ratio 42.2 H Glucose 199 H POC Glucose 211 H Calcium 8.2 L 07/02/20 07/02/20 07/02/20 07:12 11:09 16:13 WBC RBC Hgb Hct MCV MCH MCHC RDW Std Deviation RDW Coeff of Erin Plt Count MPV Immature Gran % (Auto) Neut % (Auto) Lymph % (Auto) [place] % (Auto) Eos % (Auto) Baso % (Auto) Neut # (Auto) Lymph # (Auto) [place] # (Auto) Eos # (Auto) Baso # (Auto) Immature Gran # (Auto) Sodium Potassium Chloride Carbon Dioxide Anion Gap BUN Creatinine Est Cr Clr Drug Dosing Est GFR ( Amer) Est GFR (Non-Af Amer) BUN/Creatinine Ratio Glucose POC Glucose 187 H 248 H 244 H Calcium blood cultures from 3 + for GPC clusters previous cultures with MSSA wound cx - staph species PG Care Time/CCT Total # of Minutes Spent Total Time Spent with Patient: Total time spent is greater than 50% in coordination of care (as documented) at patient's floor/unit and/or counseling patient: Coding Level of Care Code 01940 Subseq Hosp Care Lvl 3 Diagnoses Bacteremia due to methicillin susceptible Staphylococcus aureus (MSSA) R78.81; B95.61 Acute respiratory failure with hypoxia J96.01 Sepsis A41.01; R65.20 Sepsis acute organ dysfunction status: with acute organ dysfunction Sepsis type: methicillin susceptible Staphylococcus aureus Severe sepsis acute organ dysfunction type: unspecified Severe sepsis shock status: without septic shock COVID-19 U07.1 Atrial fibrillation with rapid ventricular response I48.91 Hypotension I95.9 Acute kidney injury N17.9 Hypertension I10 Hypertension type: essential hypertension Depression F32.9 Active/Remission status: remission status unspecified Depression Type: major depressive disorder Major depression recurrence: unspecified whether recurrent COPD (chronic obstructive pulmonary disease) J44.9 COPD type: unspecified COPD Diastolic congestive heart failure I50.32 Heart failure chronicity: chronic Hypercholesteremia E78.00 Diabetes mellitus type 2, insulin dependent E11.9; Z79.4 Mild CAD I25.10 GERD (gastroesophageal reflux disease) K21.9 Esophagitis presence: esophagitis presence not specified Morbid obesity with BMI of 45.0-49.9, adult E66.01; Z68.42 Metabolic encephalopathy G93.41 Candidiasis of mouth and esophagus B37.81; B37.0 DVT prophylaxis Z29.9 (1) Diastolic congestive heart failure Heart failure chronicity: chronic Qualified Code(s): I50.32 - Chronic diastolic (congestive) heart failure (2) Depression Active/Remission status: remission status unspecified Depression Type: major depressive disorder Major depression recurrence: unspecified whether recurrent Qualified Code(s): F32.9 - Major depressive disorder, single episode, unspecified (3) Sepsis Sepsis acute organ dysfunction status: with acute organ dysfunction Sepsis type: methicillin susceptible Staphylococcus aureus Severe sepsis acute organ dysfunction type: unspecified Severe sepsis shock status: without septic shock Qualified Code(s): A41.01 - Sepsis due to Methicillin susceptible Staphylococcus aureus; R65.20 - Severe sepsis without septic shock (4) COPD (chronic obstructive pulmonary disease) COPD type: unspecified COPD Qualified Code(s): J44.9 - Chronic obstructive pulmonary disease, unspecified (5) GERD (gastroesophageal reflux disease) Esophagitis presence: esophagitis presence not specified Qualified Code(s): K21.9 - Gastro-esophageal reflux disease without esophagitis (6) Hypertension Hypertension type: essential hypertension Qualified Code(s): I10 - Essential (primary) hypertension
[2020-07-02] MEDS: ACETAMINOPHEN 325 MG TAB PO PRN (20:33)
[2020-07-02] MEDS: ATORVASTATIN 40 MG TAB PO SCH (20:35)
[2020-07-02] MEDS: CITALOPRAM 40 MG TAB PO SCH (20:35)
[2020-07-03] MEDS: ACETAMINOPHEN 325 MG TAB PO PRN ×2 (05:20→16:21)
[2020-07-03] MEDS: ceFAZolin 2000MG 2,000 MG/15 ML SYR IV SCH ×3 (05:40→22:22)
[2020-07-03] MEDS ORDERED: LR 500ML BOLUS, THEN 15ML/HR IV SCH (06:00)
[2020-07-03] MEDS: AMIODARONE / D5W 360 MG/200 ML BAG IV SCH ×2 (06:02→16:21)
[2020-07-03 06:49] LABS: BUN Creatinine Ratio 41.5 (10-20); Calcium 7.8 mg/dl (8.5-10.1); Creatinine Clr Calc Pharmacy 36.8 ml/min; Est GFR (African American) 37.2; Est GFR (Non-African American) 32.1; Potassium 4.2 mmol/L (3.5-5.1)
--- NOTE | 2020-07-03 07:11 | CT Scan Report ---
CT OF THE CERVICAL SPINE WITHOUT CONTRAST CLINICAL HISTORY: recent fall, pain, r/o fracture COMPARISON STUDY: CT of the cervical spine May 03, 2009. Cervical spine radiographs September 21, 2013. MRI of the cervical spine May 15, 2009. TECHNIQUE: Helical axial images of the cervical spine were obtained without IV contrast. Sagittal a nd coronal reconstructions were viewed. Automated exposure control was utilized for the study. A do se lowering technique was utilized adhering to the principles of ALARA. FINDINGS: Alignment of the cervical spine is anatomic. Vertebral body heights are maintained. No acut e cervical spine fracture or subluxation is present. There is no prevertebral edema. Facet joints are intact. Severe multilevel facet arthrosis is noted. There is moderate to severe multilevel degenera tive disc disease with disc space narrowing and extensive osteophytosis. Posterior disc osteophyte co mplex is most pronounced at T1-T2. IMPRESSION: 1. No acute cervical spine fracture or subluxation. 2. Severe multilevel degenerative changes within the cervical spine. ACT 112: Negative or not required by law. Electronically signed by: Mark Fine M.D. 07/03/2020 7:09 AM
--- NOTE | 2020-07-03 07:20 | Magnetic Resonance Report ---
MRI OF THE LUMBAR SPINE WITHOUT CONTRAST CLINICAL HISTORY: MSSA bacteremia; pain; r/o abscess, discitis COMPARISON STUDY: Lumbar spine radiographs lumbar spine CT August 13, 2015. November 26, 2019. TECHNIQUE: Utilizing a 1.5 Ryanne magnet and dedicated coil, multiplanar, multiecho imaging of the [facility] spine was performed without IV contrast. FINDINGS: For purposes of numbering on this exam, the L5-S1 disc space is assigned to axial image 14 of 15. Thi s exam is compromised by motion artifact. Postoperative findings consistent with L5-S1 discectomy and posterior decompression with bilateral pedicle screw fusion from L3 through S1 are noted. Note is ma de of a 4.9 x 2.3 x 3.4 cm laminectomy bed fluid collection at the L4-L5 level. No additional fluid c ollections are present. The conus terminates at the L1 level. Increased T2 signal within the operativ e bed is likely postsurgical or reflects edema. No epidural fluid collection is identified to suggest an epidural abscess. Several hemangiomas are noted. Note is made of diminished T1 signal along the i nferior endplate of L1 with slight increased STIR signal. This is likely degenerative. There is no ev idence for discitis or osteomyelitis on this examination. There is no paravertebral edema. L1-2: There is mild disc bulge with ligamentous hypertrophy and facet arthrosis. There is mild narrow ing of the central canal, lateral recesses and neural foramen. L2-3: There is disc space narrowing with disc bulge and ligamentous hypertrophy. There is mild narrow ing of the central canal, lateral recesses and neural foramen. L3-4: The central canal and neural foramen are patent. L4-5: The central canal and neural foramen are patent. L5-S1: The central canal and neural foramen are patent. There is slight anterolisthesis of L5 on S1. IMPRESSION: 1. Status post L5-S1 discectomy and posterior decompression bilateral pedicle screw fusion from L3 th rough S1. 4.9 x 2.3 x 3.4 cm laminectomy bed fluid collection at the L4-L5 level favors a seroma. 2. No acute process within the lumbar spine by MRI. No evidence for discitis. No epidural abscess. 3. Exam compromised by artifact. 4. Mild multilevel central canal stenosis, as described above. ACT 112: Negative or not required by law. Electronically signed by: Mark Fine M.D. 07/03/2020 7:19 AM
[2020-07-03] MEDS ORDERED: INSULIN GLARGINE SOLOSTAR 100 UNITS/ML 3 ML PEN SC ONE ×2 (08:00→08:30)
[2020-07-03] MEDS: ASPIRIN 81 MG ECTAB PO SCH (08:02)
[2020-07-03] MEDS: GABAPENTIN 600 MG TAB PO SCH ×2 (08:02→20:42)
[2020-07-03] MEDS: PANTOprazole 40 MG TAB PO SCH (08:03)
[2020-07-03] MEDS: METOPROLOL SUCC 50MG EXT REL TAB PO SCH (08:03)
[2020-07-03] MEDS: ENOXAPARIN INJ 120 MG/0.8 ML SYR SQ SCH ×2 (08:05→20:43)
[2020-07-03] MEDS: FLUTICASONE/VILANTEROL 100/25MCG 14 PUFFS/INHALER INH SCH (08:06)
[2020-07-03] MEDS: FLUTICASONE PROPIONATE NA SPR 16 GM BTL SCH ×2 (08:06→20:42)
[2020-07-03] MEDS: NYSTATIN POWDER 15GM BTL EXT SCH ×2 (08:06→20:43)
[2020-07-03] MEDS: NYSTATIN SUSP 500,000 U/5 ML UDC PO SCH ×4 (08:07→20:42)
[2020-07-03] MEDS: INSULIN GLARGINE SOLOSTAR 100 UNITS/ML 3 ML PEN SC SCH (08:10)
[2020-07-03] MEDS: POTASSIUM CHLORIDE CRTAB 20 MEQ TABCR PO SCH (08:11)
--- NOTE | 2020-07-03 09:04 | Electrocardiogram Report ---
Test Reason : Blood Pressure : / mmHG Vent. Rate : 096 BPM Atrial Rate : 090 BPM P-R Int : 000 ms QRS Dur : 110 ms QT Int : 372 ms P-R-T Axes : 000 -44 085 degrees QTc Int : 469 ms Atrial fibrillation Left anterior fascicular block Incomplete left bundle block Abnormal ECG When compared with ECG of 01-JUL-2020 05:35, No significant change was found Confirmed by Shane Stock ([id number]) on 07/03/2020 9:03:40 AM Referred By: REFERRED SELF Confirmed By:Shane Stock
[2020-07-03] MEDS: INSULIN ASPART 100 UNITS/ML 3 ML PEN SC SCH ×4 (09:12→22:17)
--- NOTE | 2020-07-03 15:17 | Pharmacy Report ---
Pharmacy Glycemic Short Note 2 - Date of Service July 03, 2020 - Glycemic Short BSG Results (Last 24 hours): 07/02/20 07/02/20 07/03/20 16:13 19:55 05:33 Glucose 146 H POC Glucose 244 H 242 H 07/03/20 07/03/20 07:14 11:16 Glucose POC Glucose 110 H 155 H OUTPATIENT ANTIDIABETIC REGIMEN: * Lantus 30 units BID ASSESSMENT: 07/03 * 1st day without dexamethasone * Will stop NPH but increase Lantus back to compensate - overall reduction in basal * Will leave Novolog at tight parameters for now due to persistent dex effects, but loosen tomorrow AM 07/02 * BSGs reasonably well controlled yesterday * She did consume meals however PO intake was poor overall * 116 units SQ given over last 24 hrs * Fasting BSG elevated this AM with 85 units basal on board (NPH + Lantus) - will titrate NPH upwards today as mild-postprandial hyperglycemia noted x 2 yesterday. I am hesitant to increase Lantus as well given yesterday's fasting of 117 * As noted above, mild post-prandial hyperglycemia noted yesterday - will adjust NPH dose today as well as a small change to Novolog carb ratio 07/01 * BSG's responded well to addition of NPH yesterday * Will continue NPH but reduce Lantus slightly as there was a significant trend down in AM fasting BSG today * Novolog was tightened yesterday afternoon - remains appropriate PLAN FOR INPATIENT GLYCEMIC CONTROL: * Basal insulin * Lantus 45 units SC x1 * Bolus insulin * NovoLog per scale ACHS or Q6hrs while NPO * Goal Range: Low 110 mg/dL - High 140 mg/dL * Correction Factor: 8 mg/dL/unit * Nutritional / Prandial insulin per carb ratio of 1 unit per 1.7 grams CHO consumed PLAN FOR DISCHARGE: * A1c 7.0% at goal, likely continue Lantus 30 units SQ BID upon discharge
--- NOTE | 2020-07-03 16:08 | XCELERA ---
[id number]
[2020-07-03] MEDS: DIGOXIN 0.125 MG TAB PO SCH (16:20)
--- NOTE | 2020-07-03 16:53 | Surgery Progress Note ---
Date of Service July 03, 2020 Assessment & Plan (1) Open wound of chest (wall), complicated: WBC improved. Patient afebrile for greater than 24 hrs. No surgical intervention indicated. Continue aquacel Ag as wound is open and there is no further purulent drainage. Wound surface area measuring the same as Wednesday. Continue IV abx per [place] [facility]. Follow up with [facility] after discharge. We will sign off at this time. Please contact with any further questions or concerns. 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 Patient currently on IV Ancef. Wound culture obtained 2 days ago ([facility]). ID consult completed yesterday via Telehealth- recommend continuing IV Ancef for 4 weeks. History/PE performed from [facility] via ipad with nurse and patient at bedside. Physical Exam Physical Exam: in person exam not performed secondary to covid status wound examined via zoom, measures 5x2 cm - Wound is measuring the same. 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 No purulence noted Results & Data ([facility]) Vital Signs (Past 12 Hours) Vital Signs Temp Pulse Pulse Resp BP Pulse Ox Pulse Ox 07/03/20 16:20 103 H 07/03/20 16:00 103 H 07/03/20 15:16 37.2 C 108 H 37 H 125/92 92 07/03/20 11:18 36.7 C 102 H 27 H 134/69 97 07/03/20 10:00 92 07/03/20 07:16 36.8 C 105 H 35 H 153/72 H 98 07/03/20 07:00 99 H PG Care Time/CCT Total # of Minutes Spent Total Time Spent with Patient: Total time spent is greater than 50% in coordination of care (as documented) at patient's floor/unit and/or counseling patient: Coding Level of Care Code 24620 Subseq Hosp Care Lvl 1 Diagnoses Open wound of chest (wall), complicated S21.109A Laterality: right (1) Open wound of chest (wall), complicated Laterality: right
--- NOTE | 2020-07-03 18:26 | XRay Report ---
XR chest 1V portable HISTORY: 80 years-old Female tachypnea acute shortness of breath COMPARISON: Chest radiograph 06/30/2020, CTA chest 06/23/2020 TECHNIQUE: Portable AP view of the chest FINDINGS: Cardiac silhouette is enlarged. No overt pulmonary edema. Unchanged mild interstitial coarsening of t he lung bases suggestive of atelectasis/scarring. Surgical clips project over the epigastric region. Degenerative changes of the shoulders and spine. IMPRESSION: Cardiomegaly without acute process. ACT 112: Negative or not required by law. The above report was generated using voice recognition software. It may contain grammatical, syntax o r spelling errors. Electronically signed by: Uzair Martin M.D. 07/03/2020 6:25 PM
[2020-07-03] MEDS ORDERED: BUMETANIDE 1 MG in SYRINGE 0 ML IV ONE (18:30)
--- NOTE | 2020-07-03 19:28 | Hospitalist Progress Note ---
Date of Service July 03, 2020 Assessment & Plan (1) Bacteremia due to methicillin susceptible Staphylococcus aureus (MSSA): Bacteremia likely 2nd to chronic ulceration of right chest wall. Culture from that wound also growing staph. Appreciate Dr Oliveros's consultation (plastics); no surgery needed at this time on the ulcer. Blood cultures thus far persistently positive. ESR 100. 5/3 cultures w/ staph. cultures repeated today and are pending. Echo done today without obvious valvular vegetations. MRI l-spine w/ and w/o contrast - NO epidural abscess, NO diskitis seen. Has old seroma from 2004 l-spine surgery [address] Dr Barboza. I spoke with Dr Barahona, Tina LUCERO, regarding MRI results today. We obviously cannot be fully certain what the status of the seroma is (infected vs sterile). If cultures are persistently positive we may need to consider IR drainage. She would need transfer to tertiary care for such. Tina LUCERO consultation & recs appreciated. Continue IV ancef. (2) Acute respiratory failure with hypoxia: 2nd COVID-19 pneumonia +/- acute/chronic diastolic CHF. WORSE Today. Considerable tachypnea, increased wob. STAT cxr without acute findings but clinically looked volume overloaded. Gave bumex 1mg IV x 1 and placed her on BIPAP. VBG with borderline respiratory alkalosis. She completed 10-day course of steroids for COVID-19. If her symptoms today are not CHF related this could be worsening COVID pneumonia. She is on therapeutic lovenox so doubt PEs. follow UOP from bumex and consider redosing if good response. (3) Sepsis: 2nd to bacteremia - MSSA - presumed source is large, chronic right chest wall ulcer. see "bacteremia" above. COVID-19 also contributed to sepsis. (4) COVID-19: with PNEUMONIA s/p 10-day course of IV steroids resp status worse today - suspect decompensated CHF but can't rule out worsening COVID pneumonia (despite negative cxr) (5) Atrial fibrillation with rapid ventricular response: fair control today - rates 90s to 120s previous h/o paroxysmal afib for which she took Toprol 50mg daily. dose increased to 100mg daily this admission. did not respond to Diltiazem bolus and drip, amiodarone bolus and drip, and Digoxin pushes. cardioverted at the bedside with 100J this admission by Dr Gomez. did not maintain NSR however. remains on amiodarone infusion and Lovenox 1mg/kg for anticoagulation. remains on toprol xl 100mg daily. digoxin 0.125mg daily. echo findings from today noted. check dig level am. appreciate cardiology assistance with this complex issue. (6) Hypotension: likely from a.fib RVR, bacteremia, and medications resolved with just occasional, transient low BP reading (7) Acute kidney injury: peak Cr 1.79 on 06/29/20 likely sepsis-associated ATN Cr 1.5 again today repeat BMP am (8) Hypertension: controlled (9) Depression: Continue Citalopram (10) COPD (chronic obstructive pulmonary disease): Mild wheezing on exam today this may be "cardiac wheezing" from pulm edema serial exams defer on restarting steroids Continue Fluticasone/Vilanterol Continue Albuterol Finished 10-day steroid course for COVID-19 pneumonia (11) Diastolic congestive heart failure: suspect recurrent acute on chronic today s/p diuresis earlier this stay will diurese again w/ bumex tonight (12) Hypercholesteremia: Holding Atorvastatin as AST is high (likely from COVID) (13) Diabetes mellitus type 2, insulin dependent: A1C : 7.0% pharmacy managing - assistance appreciated control satisfactory (14) Mild CAD: no evidence of ACS or ischemic symptoms Continue ASA 81mg po daily Hold statin due to elevation of transaminases echo with no LV wall motion abnormalities (15) GERD (gastroesophageal reflux disease): Continue Protonix 40mg po daily (16) Morbid obesity with BMI of 45.0-49.9, adult: BMI 47 (17) Metabolic encephalopathy: 2nd MSSA bacteremia/sepsis, COVID, hospital delirium, etc seems better today once again (18) Candidiasis of mouth and esophagus: nystatin 5cc qid swish/spit (19) Seroma of musculoskeletal structure after musculoskeletal system procedure: seroma seen on MRI of l-spine had [place]-spine surgery [place] [address]boza uncertain if this is harboring staph infection -- see discussion above (20) DVT prophylaxis: lovenox 120mg BID spoke with Rosa - pt's daughter - update given care today d/w cardiology, orthopedics/spine, and [facility] ID total time today coordinating very complex care - 65 min Admission and Anticipated Discharge Date Admission Date: June 23, 2020 Subjective during the visit the patient was very tachypneic - RRs in the 30s and 40s with mild retractions/accessory muscle use. oddly she said she "felt good" and that many of her complaints from prior - back pain, weakness, etc - were better than previous. she does have cough. appetite fair. tele with ongoing a.fib, rates 90s-120s on amiodarone infusion. pt c/o mild right sided abdominal pain "since I took those pictures" (MRI lspine, etc). no chest pain. she is aware that her was transferred from ICU to COVID unit today. Review of Systems Constitutional: + fatigue and + weakness; no fever Ear, Nose, Mouth, Throat: no sore throat and no dysphagia Respiratory: + cough, + dyspnea on exertion and + wheezing Cardiovascular: no chest pain and no orthopnea Gastrointestinal: as per Subjective / HPI and + abdominal pain; no nausea and no vomiting Musculoskeletal: + back pain Integumentary: + non-healing lesions (Right upper chest ) Physical Exam Constitutional: + acute distress (Tachypnea, retractions) and + morbidly obese; no altered mental status ENMT: external ear and nose normal, oropharynx normal Mouth: + oral mucosal abnormality (thrush on tongue ) Respiratory: + respiratory distress, + retractions, + uses accessory muscles and + tachypneic Auscultation: + crackles (B/l bases) and + wheezes (B/l ) Cardiovascular: Rate/Rhythm: + tachycardic and + irregularly irregular Heart Sounds: normal S1 and normal S2; no murmur Vessels: posterior tibial pulses present and dorsalis pedis pulses present Extremities: no edema Gastrointestinal (Abdomen): normal bowel sounds, soft, nontender, no hepatosplenomegaly Musculoskeletal: Spine: + lumbar spinal tenderness Psychiatric: Orientation: alert, oriented to person and oriented to place Results & Data Results & Data ([facility]) Vital Signs (Past 12 Hours) Vital Signs Temp Pulse Pulse Resp BP BP Pulse Ox 07/03/20 19:04 36.6 C 103 H 20 138/82 93 07/03/20 18:14 103 H 28 H 98 07/03/20 16:20 103 H 07/03/20 16:00 103 H 07/03/20 15:16 37.2 C 108 H 37 H 125/92 92 07/03/20 11:18 36.7 C 102 H 27 H 134/69 97 07/03/20 10:00 Pulse Ox 07/03/20 19:04 07/03/20 18:14 07/03/20 16:20 07/03/20 16:00 07/03/20 15:16 07/03/20 11:18 07/03/20 10:00 92 Laboratory Results Laboratory Results - last 24 hr 07/02/20 07/03/20 07/03/20 19:55 05:33 07:14 Sodium 135 L Potassium 4.2 Chloride 105 Carbon Dioxide 25 Anion Gap 5.0 BUN 63 H Creatinine 1.51 H Est Cr Clr Drug Dosing 36.8 Est GFR ( Amer) 37.2 Est GFR (Non-Af Amer) 32.1 BUN/Creatinine Ratio 41.5 H Glucose 146 H POC Glucose 242 H 110 H Calcium 7.8 L AST 98 H ALT 53 07/03/20 07/03/20 11:16 16:11 Sodium Potassium Chloride Carbon Dioxide Anion Gap BUN Creatinine Est Cr Clr Drug Dosing Est GFR ( Amer) Est GFR (Non-Af Amer) BUN/Creatinine Ratio Glucose POC Glucose 155 H 203 H Calcium AST ALT PG Care Time/CCT Total # of Minutes Spent Total Time Spent with Patient: Total time spent is greater than 50% in coordination of care (as documented) at patient's floor/unit and/or counseling patient: Prolonged Care Time Prolonged Care Time: Yes Total Prolonged Care Time: 65 Coding Level of Care Code 77843 Subseq Hosp Care Lvl 3 (25 - SIGNIFICANT, SEPARATELY IDENTIFIABLE ) Diagnoses Bacteremia due to methicillin susceptible Staphylococcus aureus (MSSA) R78.81; B95.61 Acute respiratory failure with hypoxia J96.01 Sepsis A41.01; R65.20 Sepsis acute organ dysfunction status: with acute organ dysfunction Sepsis type: methicillin susceptible Staphylococcus aureus Severe sepsis acute organ dysfunction type: unspecified Severe sepsis shock status: without septic shock COVID-19 U07.1 Atrial fibrillation with rapid ventricular response I48.91 Hypotension I95.9 Acute kidney injury N17.9 Hypertension I10 Hypertension type: essential hypertension Depression F32.9 Active/Remission status: remission status unspecified Depression Type: major depressive disorder Major depression recurrence: unspecified whether recurrent COPD (chronic obstructive pulmonary disease) J44.9 COPD type: unspecified COPD Diastolic congestive heart failure I50.32 Heart failure chronicity: chronic Hypercholesteremia E78.00 Diabetes mellitus type 2, insulin dependent E11.9; Z79.4 Mild CAD I25.10 GERD (gastroesophageal reflux disease) K21.9 Esophagitis presence: esophagitis presence not specified Morbid obesity with BMI of 45.0-49.9, adult E66.01; Z68.42 Metabolic encephalopathy G93.41 Candidiasis of mouth and esophagus B37.81; B37.0 Seroma of musculoskeletal structure after musculoskeletal system procedure M96.842 DVT prophylaxis Z29.9 Additional Codes Prolonged Care Time - Prolonged Care Time: Yes ([id number]) Time Spent (min) 65 (1) Diastolic congestive heart failure Heart failure chronicity: chronic Qualified Code(s): I50.32 - Chronic diastolic (congestive) heart failure (2) Depression Active/Remission status: remission status unspecified Depression Type: major depressive disorder Major depression recurrence: unspecified whether recurrent Qualified Code(s): F32.9 - Major depressive disorder, single episode, unspecified (3) Sepsis Sepsis acute organ dysfunction status: with acute organ dysfunction Sepsis type: methicillin susceptible Staphylococcus aureus Severe sepsis acute organ dysfunction type: unspecified Severe sepsis shock status: without septic shock Qualified Code(s): A41.01 - Sepsis due to Methicillin susceptible Staphylococcus aureus; R65.20 - Severe sepsis without septic shock (4) COPD (chronic obstructive pulmonary disease) COPD type: unspecified COPD Qualified Code(s): J44.9 - Chronic obstructive pulmonary disease, unspecified (5) GERD (gastroesophageal reflux disease) Esophagitis presence: esophagitis presence not specified Qualified Code(s): K21.9 - Gastro-esophageal reflux disease without esophagitis (6) Hypertension Hypertension type: essential hypertension Qualified Code(s): I10 - Essential (primary) hypertension
[2020-07-03 19:52] LABS: Base Excess VBG 1.1 mEq/L; Oxygen Saturation VBG 60.4 %; pH VBG 7.43 (7.36-7.41)
[2020-07-03] MEDS: CITALOPRAM 40 MG TAB PO SCH (20:42)
[2020-07-04] MEDS: METOPROLOL TARTRATE 1 MG/ML VIAL IV PRN (01:24)
[2020-07-04] MEDS ORDERED: METOPROLOL TARTRATE 1 MG/ML VIAL IV STA (04:35)
[2020-07-04] MEDS: AMIODARONE / D5W 360 MG/200 ML BAG IV SCH ×2 (04:43→15:39)
[2020-07-04] MEDS: ceFAZolin 2000MG 2,000 MG/15 ML SYR IV SCH ×3 (06:07→22:27)
[2020-07-04 07:02] LABS: Hematocrit (blood only) 32.2 % (37-47); Hemoglobin 10.4 g/dL (12.0-16.0); Mean Corpuscular Hemoglobin 27.6 pg (25-34); Mean Corpuscular Hgb Conc 32.3 g/dL (32-36); Mean Corpuscular Volume 85.4 fL (80-100); Mean Platelet Volume 11.6 fL (7.4-10.4); Platelet Count 293 K/uL (130-400); RDW Coefficient of Variation 14.8 % (11.5-14.5); RDW Standard Deviation 46.2 fL (36.4-46.3); Red Blood Count 3.77 M/uL (4.2-5.4)
[2020-07-04 07:19] LABS: BUN Creatinine Ratio 39.9 (10-20); Calcium 8.3 mg/dl (8.5-10.1); Creatinine Clr Calc Pharmacy 30.6 ml/min; Est GFR (African American) 29.9; Est GFR (Non-African American) 25.8; Potassium 4.5 mmol/L (3.5-5.1)
[2020-07-04 07:40] LABS: Basophils # (auto) 0.04 K/uL (0-0.2); Basophils % (auto) 0.2 %; Immature Granulocytes # (auto) 0.16 K/uL (0.00-0.02); Immature Granulocytes % (auto) 0.8 %; Lymphocytes # (auto) 2.87 K/uL (1.2-3.4); Lymphocytes % (auto) 13.7 %; Monocytes # (auto) 1.37 K/uL (0.11-0.59); Monocytes % (auto) 6.5 %; Neutrophils # (auto) 16.56 K/uL (1.4-6.5); Neutrophils % (auto) 78.8 %
[2020-07-04] MEDS: ASPIRIN 81 MG ECTAB PO SCH (08:31)
[2020-07-04] MEDS: FLUTICASONE PROPIONATE NA SPR 16 GM BTL SCH ×2 (08:31→20:33)
[2020-07-04] MEDS: GABAPENTIN 600 MG TAB PO SCH ×2 (08:31→20:31)
[2020-07-04] MEDS: PANTOprazole 40 MG TAB PO SCH (08:31)
[2020-07-04] MEDS: POTASSIUM CHLORIDE CRTAB 20 MEQ TABCR PO SCH (08:32)
[2020-07-04] MEDS: FLUTICASONE/VILANTEROL 100/25MCG 14 PUFFS/INHALER INH SCH (08:33)
[2020-07-04] MEDS: NYSTATIN SUSP 500,000 U/5 ML UDC PO SCH ×4 (08:33→20:34)
[2020-07-04] MEDS: ENOXAPARIN INJ 120 MG/0.8 ML SYR SQ SCH ×2 (08:34→20:32)
[2020-07-04] MEDS: NYSTATIN POWDER 15GM BTL EXT SCH ×2 (08:42→22:27)
[2020-07-04] MEDS ORDERED: METOPROLOL SUCC 50MG EXT REL TAB PO SCH (09:00)
[2020-07-04] MEDS ORDERED: INSULIN GLARGINE SOLOSTAR 100 UNITS/ML 3 ML PEN SC ONE ×2 (09:00→21:00)
[2020-07-04] MEDS: INSULIN ASPART 100 UNITS/ML 3 ML PEN SC SCH ×4 (09:30→20:47)
--- NOTE | 2020-07-04 11:33 | Pharmacy Report ---
Pharmacy Glycemic Short Note 2 - Date of Service July 04, 2020 - Glycemic Short BSG Results (Last 24 hours): 07/03/20 07/03/20 07/04/20 16:11 20:15 06:13 Glucose 153 H POC Glucose 203 H 137 H 07/04/20 07:19 Glucose POC Glucose 174 H OUTPATIENT ANTIDIABETIC REGIMEN: * Lantus 30 units BID ASSESSMENT: 07/04 * Dexamethasone discontinued 48 hours ago - effects likely dissipated * Will loosen Novolog, starting at breakfast. Note - lunch BSG elevated therefore slightly tightened as compared to breakfast * AM fasting BSG above goal - will split BID (similar to home schedule) and increase 07/03 * 1st day without dexamethasone * Will stop NPH but increase Lantus back to compensate - overall reduction in basal * Will leave Novolog at tight parameters for now due to persistent dex effects, but loosen tomorrow AM 5/4 * BSGs reasonably well controlled yesterday * She did consume meals however PO intake was poor overall * 116 units SQ given over last 24 hrs * Fasting BSG elevated this AM with 85 units basal on board (NPH + Lantus) - will titrate NPH upwards today as mild-postprandial hyperglycemia noted x 2 yesterday. I am hesitant to increase Lantus as well given yesterday's fasting of 117 * As noted above, mild post-prandial hyperglycemia noted yesterday - will adjust NPH dose today as well as a small change to Novolog carb ratio 5/3 * BSG's responded well to addition of NPH yesterday * Will continue NPH but reduce Lantus slightly as there was a significant trend down in AM fasting BSG today * Novolog was tightened yesterday afternoon - remains appropriate PLAN FOR INPATIENT GLYCEMIC CONTROL: * Basal insulin * Lantus 45 units SC x1 and additional 5-15 units tonight based on BSG * Bolus insulin * NovoLog per scale ACHS or Q6hrs while NPO * Goal Range: Low 110 mg/dL - High 140 mg/dL * Correction Factor: 15 mg/dL/unit * Nutritional / Prandial insulin per carb ratio of 1 unit per 4 grams CHO consumed PLAN FOR DISCHARGE: * A1c 7.0% at goal, likely continue Lantus 30 units SQ BID upon discharge
[2020-07-04] MEDS: DIGOXIN 0.125 MG TAB PO SCH (17:48)
--- NOTE | 2020-07-04 17:54 | Hospitalist Progress Note ---
Date of Service July 04, 2020 Assessment & Plan (1) Bacteremia due to methicillin susceptible Staphylococcus aureus (MSSA): Bacteremia 2nd to chronic ulceration of right chest wall. Culture from that wound grew MSSA. Dr Oliveros from plastic surgery saw patient; no Rx for the ulcer needed at this time. Ulcer is clean and local wound care is being provided. Blood cultures thus far persistently positive. / cultures w/ staph. Repeat cultures from 07/03 thus far negative. 2D Echo without obvious valvular vegetations. MRI l-spine w/ and w/o contrast - NO epidural abscess, NO diskitis seen. HOWEVER - old seroma from 2004 l-spine surgery is seen. Cannot rule out infection of this seroma. I spoke with Tina LUCERO yesterday -- if blood cultures are persistently positive we may need to consider IR drainage. She would need transfer to tertiary care for such. Tina LUCERO consultation & recs appreciated. Continue IV ancef. (2) Acute respiratory failure with hypoxia: 2nd COVID-19 pneumonia +/- acute/chronic diastolic CHF in setting of COPD. Had respiratory distress yesterday which resolved with BIPAP and 1 dose of diuretic. She completed 10-day course of steroids for COVID-19. She is on therapeutic lovenox. (3) Sepsis: 2nd to bacteremia - MSSA - source is large, chronic right chest wall ulcer which also grew MSSA. see "bacteremia" above. COVID-19 also contributed to sepsis. (4) COVID-19: with PNEUMONIA s/p 10-day course of IV steroids see above (5) Atrial fibrillation with rapid ventricular response: converted this am from rapid a.fib to NSR while on amiodarone infusion. spoke with Dr Chávez - will leave infusion in place until 07/06, then PO amiodarone thereafter. cont digoxin - level today 1.6. cont metoprolol xl. cont lovenox. patient with past h/o PAF. earlier this stay -- did not respond to Diltiazem bolus and drip, amiodarone bolus and drip, and Digoxin pushes. cardioverted at the bedside with 100J this admission by Dr Gomez with yarsanism of NSR but ultimately flipped back to a.fib. (6) Hypotension: 2nd a.fib RVR, bacteremia, and medications. resolved. (7) Acute kidney injury: sepsis-associated ATN, diuretic effects, other factors Cr 1.8 today s/p diuretics yesterday HOLD any diuretics today BMP am (8) Hypertension: controlled (9) Seroma of musculoskeletal structure after musculoskeletal system procedure: seroma seen on MRI of l-spine had l-spine surgery [place] [address] Barboza uncertain if this is harboring staph infection -- see discussion above (10) Depression: Continue Citalopram (11) COPD (chronic obstructive pulmonary disease): No exacerbation at this time Continue Fluticasone/Vilanterol Continue Albuterol Finished 10-day steroid course for COVID-19 pneumonia (12) Diastolic congestive heart failure: recurrent acute on chronic intermittently this stay patient does not appear volume overloaded today (13) Hypercholesteremia: Holding Atorvastatin as AST is high (likely from COVID) (14) Diabetes mellitus type 2, insulin dependent: A1C : 7.0% pharmacy managing - assistance appreciated (15) Mild CAD: no evidence of ACS or ischemic symptoms Continue ASA 81mg po daily Hold statin due to elevation of transaminases echo with no LV wall motion abnormalities (16) GERD (gastroesophageal reflux disease): Continue Protonix 40mg po daily (17) Morbid obesity with BMI of 45.0-49.9, adult: BMI 47 (18) Metabolic encephalopathy: 2nd MSSA bacteremia/sepsis, COVID, hospital delirium, etc high-dose gabapentin in setting of DANIEL could be contributing check ammonia level check B12 recheck ESR in light of a.fib may need head imaging to r/o subacute CVA (19) Candidiasis of mouth and esophagus: nystatin 5cc qid swish/spit (20) DVT prophylaxis: lovenox 120mg BID spoke with Rosa - nagi's daughter - update given again today she was not aware of zoom feature to see her mom/dad will inform nursing of daughter's desire to use this option care today d/w cardiology Admission and Anticipated Discharge Date Admission Date: June 23, 2020 Subjective patient very tired during the visit answers questions quickly and appropriately but otherwise just stares ahead daughter concerned by this as well - she was quite tearful over the phone - she is worried about her mom/dad (father has COVID as well, in COVID unit) patient surprisingly states "I feel good today" denies back pain denies cp denies abd pain eating is poor per staff denies dyspnea today Review of Systems Constitutional: + fatigue, + malaise, + weakness and + anorexia Respiratory: no cough Cardiovascular: no chest pain Gastrointestinal: no nausea and no vomiting Musculoskeletal: no back pain and no neck pain Physical Exam Constitutional: + morbidly obese and + altered mental status (couldn't tell me she has COVID, but knew she was in hospital; got yr wrong ); no acute distress ENMT: external ear and nose normal, oropharynx normal Respiratory: no respiratory distress Auscultation: + diminished lung sounds (bases ); no crackles and no wheezes Cardiovascular: Rate/Rhythm: regular rate and regular rhythm Heart Sounds: normal S1 and normal S2; no murmur Vessels: posterior tibial pulses present and dorsalis pedis pulses present; no JVD Extremities: no edema Gastrointestinal (Abdomen): normal bowel sounds, soft, nontender, no hepatosplenomegaly Skin: small hematoma, abd wall, right side of abdominal wall panus Psychiatric: Orientation: alert, oriented to person and oriented to place; + not oriented to time Results & Data Results & Data ([facility]) Vital Signs (Past 12 Hours) Vital Signs Temp Pulse Pulse Resp BP BP Pulse Ox 07/04/20 17:48 89 07/04/20 15:49 37.1 C 88 20 93/60 L 99 07/04/20 11:47 96/52 L 07/04/20 11:33 36.6 C 132 H 18 92 07/04/20 08:00 126 H 07/04/20 07:21 36.6 C 123 H 24 131/87 96 07/04/20 07:20 122 H Laboratory Results Laboratory Results - last 24 hr 07/03/20 07/03/20 07/04/20 19:37 20:15 06:13 WBC 21.00 H RBC 3.77 L Hgb 10.4 L Hct 32.2 L MCV 85.4 MCH 27.6 MCHC 32.3 RDW Std Deviation 46.2 RDW Coeff of Erin 14.8 H Plt Count 293 MPV 11.6 H Immature Gran % (Auto) 0.8 Neut % (Auto) 78.8 Lymph % (Auto) 13.7 Page % (Auto) 6.5 Eos % (Auto) 0.0 Baso % (Auto) 0.2 Neut # (Auto) 16.56 H Lymph # (Auto) 2.87 Page # (Auto) 1.37 H Eos # (Auto) 0.00 Baso # (Auto) 0.04 Immature Gran # (Auto) 0.16 H VBG pH 7.43 H VBG pCO2 39 VBG pO2 29 VBG HCO3 25 VBG O2 Saturation 60.4 VBG Base Excess 1.1 Barometric Pressure 730.2 Sodium Potassium Chloride Carbon Dioxide Anion Gap BUN Creatinine Est Cr Clr Drug Dosing Est GFR ( Amer) Est GFR (Non-Af Amer) BUN/Creatinine Ratio Glucose POC Glucose 137 H Calcium AST Procalcitonin Digoxin 07/04/20 07/04/20 07/04/20 06:13 06:13 06:13 WBC RBC Hgb Hct MCV MCH MCHC RDW Std Deviation RDW Coeff of Erin Plt Count MPV Immature Gran % (Auto) Neut % (Auto) Lymph % (Auto) Page % (Auto) Eos % (Auto) Baso % (Auto) Neut # (Auto) Lymph # (Auto) Page # (Auto) Eos # (Auto) Baso # (Auto) Immature Gran # (Auto) VBG pH VBG pCO2 VBG pO2 VBG HCO3 VBG O2 Saturation VBG Base Excess Barometric Pressure Sodium 137 Potassium 4.5 Chloride 106 Carbon Dioxide 24 Anion Gap 7.0 BUN 72 H Creatinine 1.81 H D Est Cr Clr Drug Dosing 30.6 Est GFR ( Amer) 29.9 Est GFR (Non-Af Amer) 25.8 BUN/Creatinine Ratio 39.9 H Glucose 153 H POC Glucose Calcium 8.3 L AST 51 H Procalcitonin 1.20 H Digoxin 1.6 07/04/20 07/04/20 07/04/20 07:19 11:31 16:06 WBC RBC Hgb Hct MCV MCH MCHC RDW Std Deviation RDW Coeff of Erin Plt Count MPV Immature Gran % (Auto) Neut % (Auto) Lymph % (Auto) Page % (Auto) Eos % (Auto) Baso % (Auto) Neut # (Auto) Lymph # (Auto) Page # (Auto) Eos # (Auto) Baso # (Auto) Immature Gran # (Auto) VBG pH VBG pCO2 VBG pO2 VBG HCO3 VBG O2 Saturation VBG Base Excess Barometric Pressure Sodium Potassium Chloride Carbon Dioxide Anion Gap BUN Creatinine Est Cr Clr Drug Dosing Est GFR ( Amer) Est GFR (Non-Af Amer) BUN/Creatinine Ratio Glucose POC Glucose 174 H 257 H 228 H Calcium AST Procalcitonin Digoxin tele - converted from a.fib to NSR this am at 11am PG Care Time/CCT Total # of Minutes Spent Total Time Spent with Patient: Total time spent is greater than 50% in coordination of care (as documented) at patient's floor/unit and/or counseling patient: Coding Level of Care Code 58461 Subseq Hosp Care Lvl 3 Diagnoses Bacteremia due to methicillin susceptible Staphylococcus aureus (MSSA) R78.81; B95.61 Acute respiratory failure with hypoxia J96.01 Sepsis A41.01; R65.20 Sepsis acute organ dysfunction status: with acute organ dysfunction Sepsis type: methicillin susceptible Staphylococcus aureus Severe sepsis acute organ dysfunction type: unspecified Severe sepsis shock status: without septic shock COVID-19 U07.1 Atrial fibrillation with rapid ventricular response I48.91 Hypotension I95.9 Acute kidney injury N17.9 Hypertension I10 Hypertension type: essential hypertension Seroma of musculoskeletal structure after musculoskeletal system procedure M96.842 Depression F32.9 Active/Remission status: remission status unspecified Depression Type: major depressive disorder Major depression recurrence: unspecified whether recurrent COPD (chronic obstructive pulmonary disease) J44.9 COPD type: unspecified COPD Diastolic congestive heart failure I50.32 Heart failure chronicity: chronic Hypercholesteremia E78.00 Diabetes mellitus type 2, insulin dependent E11.9; Z79.4 Mild CAD I25.10 GERD (gastroesophageal reflux disease) K21.9 Esophagitis presence: esophagitis presence not specified Morbid obesity with BMI of 45.0-49.9, adult E66.01; Z68.42 Metabolic encephalopathy G93.41 Candidiasis of mouth and esophagus B37.81; B37.0 DVT prophylaxis Z29.9 (1) Diastolic congestive heart failure Heart failure chronicity: chronic Qualified Code(s): I50.32 - Chronic diastolic (congestive) heart failure (2) Depression Active/Remission status: remission status unspecified Depression Type: major depressive disorder Major depression recurrence: unspecified whether recurrent Qualified Code(s): F32.9 - Major depressive disorder, single episode, unspecified (3) Sepsis Sepsis acute organ dysfunction status: with acute organ dysfunction Sepsis type: methicillin susceptible Staphylococcus aureus Severe sepsis acute organ dysfunction type: unspecified Severe sepsis shock status: without septic shock Qualified Code(s): A41.01 - Sepsis due to Methicillin susceptible Staphylococcus aureus; R65.20 - Severe sepsis without septic shock (4) COPD (chronic obstructive pulmonary disease) COPD type: unspecified COPD Qualified Code(s): J44.9 - Chronic obstructive pulmonary disease, unspecified (5) GERD (gastroesophageal reflux disease) Esophagitis presence: esophagitis presence not specified Qualified Code(s): K21.9 - Gastro-esophageal reflux disease without esophagitis (6) Hypertension Hypertension type: essential hypertension Qualified Code(s): I10 - Essential (primary) hypertension
[2020-07-04] MEDS: ACETAMINOPHEN 325 MG TAB PO PRN (20:29)
[2020-07-04] MEDS: CITALOPRAM 40 MG TAB PO SCH (20:31)
[2020-07-05] MEDS: AMIODARONE / D5W 360 MG/200 ML BAG IV SCH ×2 (03:15→13:38)
[2020-07-05] MEDS: ceFAZolin 2000MG 2,000 MG/15 ML SYR IV SCH ×2 (06:00→13:17)
[2020-07-05 06:20] LABS: BUN Creatinine Ratio 32.6 (10-20); Calcium 7.1 mg/dl (8.5-10.1); Creatinine Clr Calc Pharmacy 18.1 ml/min; Est GFR (African American) 15.8; Est GFR (Non-African American) 13.6; Potassium 5.5 mmol/L (3.5-5.1)
[2020-07-05 06:48] LABS: Hematocrit (blood only) 26.1 % (37-47); Hemoglobin 8.4 g/dL (12.0-16.0); Mean Corpuscular Hemoglobin 27.6 pg (25-34); Mean Corpuscular Hgb Conc 32.2 g/dL (32-36); Mean Corpuscular Volume 85.9 fL (80-100); Mean Platelet Volume 12.1 fL (7.4-10.4); Platelet Count 408 K/uL (130-400); RDW Coefficient of Variation 15.3 % (11.5-14.5); RDW Standard Deviation 47.4 fL (36.4-46.3); Red Blood Count 3.04 M/uL (4.2-5.4); White Blood Count 34.81 K/uL (4.8-10.8)
[2020-07-05] MEDS ORDERED: SODIUM POLYSTYRENE SULFONATE 15G/60ML SUSP PO STA (07:11)
[2020-07-05] MEDS ORDERED: INSULIN GLARGINE SOLOSTAR 100 UNITS/ML 3 ML PEN SC ONE ×2 (07:45→21:00)
[2020-07-05] MEDS: FLUTICASONE PROPIONATE NA SPR 16 GM BTL SCH ×2 (08:47→20:21)
[2020-07-05] MEDS: NYSTATIN POWDER 15GM BTL EXT SCH ×2 (08:48→20:21)
[2020-07-05] MEDS: FLUTICASONE/VILANTEROL 100/25MCG 14 PUFFS/INHALER INH SCH (08:48)
[2020-07-05] MEDS: PANTOprazole 40 MG TAB PO SCH (08:49)
[2020-07-05] MEDS: NYSTATIN SUSP 500,000 U/5 ML UDC PO SCH ×4 (08:49→20:20)
[2020-07-05] MEDS: INSULIN ASPART 100 UNITS/ML 3 ML PEN SC SCH ×3 (08:53→16:56)
[2020-07-05] MEDS: SODIUM CHLORIDE 0.9% 1000ML 1,000 ML IV SCH ×2 (08:58→20:18)
[2020-07-05] MEDS ORDERED: METOPROLOL SUCC 50MG EXT REL TAB PO SCH (09:00)
--- NOTE | 2020-07-05 09:40 | Cardiology Progress Note ---
Date of Service July 05, 2020 Assessment & Plan (1) Atrial fibrillation with rapid ventricular response: -converted to sinus rhythm at approximately noon yesterday. -carries a history of paroxysmal atrial fibrillation. -can convert to oral amiodarone at 200 mg b.i.d.. -remains on therapeutic Lovenox. -will decide on long-term anticoagulation she improves. (2) Acute exacerbation of CHF (congestive heart failure): -improved with diuresis. (3) CAD (coronary artery disease): -20-30% mid LAD and proximal RCA stenoses, August 2008. -continue medical management. (4) Bacteremia due to methicillin susceptible Staphylococcus aureus (MSSA): -persistently positive blood cultures. -chronic ulceration on right chest wall likely source. -question infected seroma and lumbar region. -fortunately no vegetations noted on transthoracic echocardiogram. Admission and Anticipated Discharge Date Admission Date: June 23, 2020 Subjective Patient is in COVID isolation. Notes have been reviewed. Physical Exam Physical Exam: Exam per Dr. Armendariz as patient is in COVID isolation. Results & Data ([facility]) Vital Signs (Past 12 Hours) Vital Signs Temp Pulse Pulse Resp BP BP Pulse Ox 07/05/20 08:33 36.7 C 82 18 114/52 L 100 07/05/20 03:22 36.6 C 83 24 108/69 99 07/04/20 23:34 36.9 C 84 21 122/47 L 99 07/04/20 23:14 84 PG Care Time/CCT Total # of Minutes Spent Total Time Spent with Patient: Total time spent is greater than 50% in coordination of care (as documented) at patient's floor/unit and/or counseling patient: Coding Level of Care Code 56452 Subseq Hosp Care Lvl 3 Diagnoses Atrial fibrillation with rapid ventricular response I48.91 Acute exacerbation of CHF (congestive heart failure) I50.33 Heart failure type: diastolic CAD (coronary artery disease) I25.10 Associated angina: without angina Coronary Disease-Associated Artery/Lesion type: [place] artery [place] vs. transplanted heart: [place] heart Bacteremia due to methicillin susceptible Staphylococcus aureus (MSSA) R78.81; B95.61 (1) Acute exacerbation of CHF (congestive heart failure) Heart failure type: diastolic Qualified Code(s): I50.33 - Acute on chronic diastolic (congestive) heart failure (2) CAD (coronary artery disease) Associated angina: without angina Coronary Disease-Associated Artery/Lesion type: [place] artery [place] vs. transplanted heart: [place] heart Qualified Code(s): I25.10 - Atherosclerotic heart disease of [place] coronary artery without angina pectoris
--- NOTE | 2020-07-05 11:49 | Pharmacy Report ---
Pharmacy Glycemic Short Note 2 - Date of Service July 05, 2020 - Glycemic Short BSG Results (Last 24 hours): 07/04/20 07/04/20 07/05/20 16:06 20:33 05:28 Glucose 225 H POC Glucose 228 H 300 H 07/05/20 07:30 Glucose POC Glucose 234 H OUTPATIENT ANTIDIABETIC REGIMEN: * Lantus 30 units BID ASSESSMENT: 07/05 * BSG's persistently elevated yesterday with all post-prandial BSG's >180 mg/dL. Would normally say this is due to insufficient prandial coverage, however patient was only charted as consuming 29 g CHO with breakfast and 6 g CHO with lunch and dinner. Will still tighten Novolog parameters slightly, but likely an increase in basal insulin is warranted as well. This is also supported by AM fasting BSG today also > 180 mg/dL * Patient may require small supplemental IV boluses today to help keep BSG's < 180 mg/dL if tightening of Novolog does not quickly help BSG's, especially given persistent bacteremia * Will add two overnight BSG checks 07/04 * Dexamethasone discontinued 48 hours ago - effects likely dissipated * Will loosen Novolog, starting at breakfast. Note - lunch BSG elevated therefore slightly tightened as compared to breakfast * AM fasting BSG above goal - will split BID (similar to home schedule) and increase 07/03 * 1st day without dexamethasone * Will stop NPH but increase Lantus back to compensate - overall reduction in basal * Will leave Novolog at tight parameters for now due to persistent dex effects, but loosen tomorrow AM PLAN FOR INPATIENT GLYCEMIC CONTROL: * Basal insulin * Lantus 60 units SC x1 and additional 15-25 units tonight based on BSG * Bolus insulin * NovoLog per scale ACHS or Q6hrs while NPO * Goal Range: Low 110 mg/dL - High 140 mg/dL * Correction Factor: 10 mg/dL/unit * Nutritional / Prandial insulin per carb ratio of 1 unit per 3 grams CHO consumed PLAN FOR DISCHARGE: * tbd
[2020-07-05] MEDS ORDERED: INSULIN HUMAN REGULAR PER UNIT 5 UNITS in SYRINGE 4.95 ML IV ONE (12:15)
[2020-07-05 12:56] LABS: Appearance Urine Cloudy (Clear); Bacteria Urine Automated Negative (Negative); Bilirubin Urine Negative (Negative); Blood Urine 2+ (Negative); Color Urine Yellow; Epithelial Cell Urine Auto >30 /lpf (0-5); Glucose Urine UA Negative (Negative); Ketones Urine Trace (Negative); Leukocyte Esterase Urine 1+ (Negative); Nitrite Urine Negative (Negative); Protein Urine Negative (Negative); Specific Gravity Urine 1.028 (1.000-1.030); Urobilinogen Urine Negative (Negative); WBC Urine Automated >30 /hpf (0-5)
[2020-07-05 13:43] LABS: Base Excess VBG -5.5 mEq/L; HCO3 VBG 20 mmol/L; PCO2 VBG 40 mmHg (38-50); PO2 VBG 29 mmHg; pH VBG 7.32 (7.36-7.41)
[2020-07-05 13:43] LABS: Amorphous Sediment Urine Present (None Prsent); Sodium Random Urine < 5 mmol/L
[2020-07-05 13:47] LABS: Oxygen Saturation VBG < 60.0 %
[2020-07-05 13:51] LABS: Hematocrit (blood only) 22.8 % (37-47); Hemoglobin 7.2 g/dL (12.0-16.0); Mean Corpuscular Hemoglobin 27.5 pg (25-34); Mean Corpuscular Hgb Conc 31.6 g/dL (32-36); Mean Platelet Volume 11.7 fL (7.4-10.4); Platelet Count 414 K/uL (130-400); RDW Coefficient of Variation 15.2 % (11.5-14.5); RDW Standard Deviation 48.5 fL (36.4-46.3); Red Blood Count 2.62 M/uL (4.2-5.4); White Blood Count 31.78 K/uL (4.8-10.8)
[2020-07-05] MEDS ORDERED: PANTOprazole 40 MG in SYRINGE 0 ML IV SCH ×3 (14:15→21:00)
[2020-07-05 14:16] LABS: Calcium 6.8 mg/dl (8.5-10.1); Creatinine Clr Calc Pharmacy 17.5 ml/min; Est GFR (African American) 15.1; Potassium 4.8 mmol/L (3.5-5.1)
[2020-07-05] MEDS ORDERED: SODIUM CHLORIDE 0.9% 250 ML IV PRN ×2 (15:05→20:44)
--- NOTE | 2020-07-05 15:47 | Critical Care Progress Note ---
Date of Service July 05, 2020 Assessment & Plan (1) Atrial fibrillation with rapid ventricular response: Impression: 80-year-old female with a past medical history of coronary disease, morbid obesity, hypertension and atrial fibrillation with evidence of sepsis and atrial fibrillation with rapid ventricular response requiring DC cardioversion 24-hour events: Patient has been in sinus rhythm but developed decrease in hemoglobin and hematocrit this morning. She is not hypotensive. She is also had marked increase in serum creatinine and BUN with decreasing urine output. Her blood cultures remain persistently positive. Recommendations: Neurologic: Continue to follow mental status. Pulmonary: Currently using supplemental oxygen and saturating well on 2 L. There is no indication for noninvasive positive pressure ventilation currently. She is oxygenating well. Her PCO2 on venous blood gas is acceptable. Cardiovascular: Status post bedside DCCV on 06/29/2020. Reviewed cardiology notes. Continue amiodarone at this point time. Holding anticoagulation given questionable bleeding issues. She does have a lactic acidosis of unclear etiology. Will need to be trended. Gastrointestinal: Keep n.p.o. for now. Suspicion for GI bleed is low as the patient is not having hematemesis or overt melena although it may be delayed in appearance. Renal: Acute renal failure: Etiology unclear. Urinalysis showed 2+ blood and negative for protein. Random sodium less than 5 with a urine creatinine of 110 suggestive of a prerenal state. We will see how she responds to blood and IV fluids. Normal saline increased to 150 cc an hour. Will give 1 dose of bicarb and replace calcium. Recommend nephrology consultation and will discuss with hospitalist if this is already in the works. Infectious disease: Blood cultures growing Staphylococcus species. Which are persistently positive. ID consultation was reviewed. She has been on cefazolin but has had persistent positive blood cultures despite antibiotic therapy. Given the persistence of the blood cultures and the potential need for aspiration of the lumbar fluid collection, I have recommended that the patient be transferred to a facility with interventional radiology and infectious disease. We have neither of these available here. Will defer antibiotics to ID at this point in time. She likely needs a LILIANA to exclude endocarditis and likely MRIs of the C-spine and T-spine in conjunction with the L-spine to exclude other potential sources of bacteremic seeding. Hematologic: Likely acute blood loss anemia Endocrine: Hyperglycemia related to acute illness and Decadron. Will consult pharmacy for management. We will check a TSH. Prior TSH checked in November 2019 was within normal limits. Lines and tubes: Peripheral IVs in place. VTE prophylaxis: On hold for now CODE STATUS: Full code Patient's prognosis is guarded. A total of 49 minutes critical care time was spent evaluation management stabilization of this patient including discussion with admitting service and ICU nurses. Given the patient's need for consultants which are not available here at [facility], I recommended she be transferred to a higher level of care. [place] is currently working on transfer. (2) Sepsis: (3) Hypotension: (4) COVID-19: (5) Altered mental status: Admission and Anticipated Discharge Date Admission Date: June 23, 2020 Subjective Asked by hospitalist service to reevaluate this patient. She is known to the critical care service from earlier in this admission. She was admitted with Covid. Her respiratory issues have resolved however her hospitalization has been complicated by persistent staph aureus bacteremia, atrial fibrillation with rapid ventricular response and today development of acute renal failure with significant decrease in hemoglobin and hematocrit and lactic acidosis. Review of Systems Review of Systems: See hospitalist note for full details Physical Exam Constitutional: + morbidly obese; no acute distress ENMT: external ear and nose normal, oropharynx normal Respiratory: no respiratory distress Auscultation: + diminished lung sounds (bases ); no crackles and no wheezes Cardiovascular: Rate/Rhythm: regular rate and regular rhythm Heart Sounds: normal S1 and normal S2; no murmur Vessels: posterior tibial pulses present and dorsalis pedis pulses present; no JVD Extremities: no edema Gastrointestinal (Abdomen): normal bowel sounds, soft, nontender, no hepatosplenomegaly Skin: small hematoma, abd wall, right side of abdominal wall panus Psychiatric: Orientation: alert, oriented to person and oriented to place; + not oriented to time Results & Data Critical Care Results & Data Vital Signs (Past 12 Hours) Vital Signs Temp Pulse Pulse Resp BP Pulse Ox 07/05/20 15:00 37.0 C 84 22 122/53 L 100 07/05/20 14:35 83 25 H 100 07/05/20 10:59 37.0 C 82 24 126/66 100 07/05/20 08:33 36.7 C 82 18 114/52 L 100 Lab & Micro Results (Past 24 Hours) RBC 2.62 M/uL (4.2-5.4) L 07/05/20 WBC 31.78 K/uL (4.8-10.8) H* 07/05/20 Hgb 7.2 g/dL (12.0-16.0) L 07/05/20 Hct 22.8 % (37-47) L 07/05/20 MCV 87.0 fL (80-100) 07/05/20 MCH 27.5 pg (25-34) 07/05/20 MCHC 31.6 g/dL (32-36) L 07/05/20 RDW Standard Deviation 48.5 fL (36.4-46.3) H 07/05/20 RDW Coefficient of Variation 15.2 % (11.5-14.5) H 07/05/20 Plt Count 414 K/uL (130-400) H 07/05/20 MPV 11.7 fL (7.4-10.4) H 07/05/20 Na 133 mmol/L (136-145) L 07/05/20 K 4.8 mmol/L (3.5-5.1) 07/05/20 Cl 100 mmol/L (98-107) 07/05/20 CO2 20 mmol/L (21-32) L 07/05/20 Anion Gap 13.0 (3-11) H 07/05/20 BUN 105 mg/dl (7-18) H 07/05/20 Creatinine 3.19 mg/dl (0.6-1.2) H 07/05/20 Estimated GFR ( Amer) 15.1 07/05/20 Estimated GFR (Non-Af Amer) 13.0 07/05/20 BUN/Creatinine Ratio 33.0 (10-20) H 07/05/20 Glu 234 mg/dl (70-99) H 07/05/20 Ca 6.8 mg/dl (8.5-10.1) L 07/05/20 Calcium Level 6.8 mg/dl (8.5-10.1) L 07/05/20 13:17 07/05/20 Venous Blood pH 7.32 (7.36-7.41) L 07/05/20 13:22 07/05/20 Venous Blood Partial Pressure CO2 40 mmHg (38-50) 07/05/20 13:22 07/05/20 Venous Blood Partial Pressure O2 29 mmHg 07/05/20 13:22 07/05/20 Venous Blood HCO3 20 mmol/L 07/05/20 13:22 07/05/20 Venous Blood Base Excess -5.5 mEq/L 07/05/20 13:22 07/05/20 Venous Blood Oxygen Saturation < 60.0 % 07/05/20 13:22 07/05/20 Blood Gas Barometric Pressure 728.2 mm/Hg 07/05/20 13:22 07/05/20 Blood Gas Barometric Pressure 728.2 mm/Hg 07/05/20 13:22 07/05/20 Microbiology 07/03/20 05:33 Aerobic Blood Culture - Preliminary Blood Gram positive cocci clusters Anaerobic Blood Culture - Preliminary No growth in Anaerobic bottle after 48 hours. 07/03/20 05:46 Aerobic Blood Culture - Preliminary Blood No growth in Aerobic bottle after 48 hours. Anaerobic Blood Culture - Preliminary No growth in Anaerobic bottle after 48 hours. 07/01/20 16:00 Gram Stain - Final Breast,Right Deep Wound Culture - Final Staphylococcus aureus I & O Totals 24 Hours 07/04/20 07/05/20 07/06/20 06:59 06:59 06:59 Intake Total 712.288 / 046.966 7461.306 / 3950.622 7109.402 / 1143.402 Output Total 1430 / 1430 475 / 475 100 / 100 Balance -717.712 / -717.712 551.306 / 818.921 4889.402 / 1043.402 Cumulative 06/23/20 19:58 thru 07/05/20 15:00 Intake Total 32021.131 Output Total 5808 Balance 4557.131 RT Ventilator Mngmt (Last Documented) Ventilator Ordered Settings Respiratory Rate 22 07/05/20 15:00 Fraction of Inspired Oxygen 28 07/05/20 14:35 Ventilator - PT Measurements Respiratory Rate 22 Coding Level of Care Code Critical Care 1st 30-74 mins Diagnoses Atrial fibrillation with rapid ventricular response I48.91 Sepsis A41.01; R65.20 Sepsis type: methicillin susceptible Staphylococcus aureus Sepsis acute organ dysfunction status: with acute organ dysfunction Severe sepsis acute organ dysfunction type: unspecified Severe sepsis shock status: without septic shock Hypotension I95.9 COVID-19 U07.1 Altered mental status R41.82 Time Spent (min) 49 (1) Sepsis Sepsis type: methicillin susceptible Staphylococcus aureus Sepsis acute organ dysfunction status: with acute organ dysfunction Severe sepsis acute organ dysfunction type: unspecified Severe sepsis shock status: without septic shock Qualified Code(s): A41.01 - Sepsis due to Methicillin susceptible Staphylococcus aureus; R65.20 - Severe sepsis without septic shock
[2020-07-05] MEDS ORDERED: SODIUM BICARB 8.4% INJ 50 MEQ/50 ML SYR IV ONE (16:02)
--- NOTE | 2020-07-05 16:20 | CT Scan Report ---
CT SCAN OF THE ABDOMEN AND PELVIS WITHOUT IV CONTRAST CLINICAL HISTORY: Acute anemia. COMPARISON STUDY: Abdominal CT dated 12/12/2019. Chest CT dated 06/23/2020. TECHNIQUE: CT scan of the abdomen and pelvis is performed from the lung bases to the proximal femora. Images are reviewed in the axial, sagittal, and coronal planes. IV contrast was not administered for this examination. A dose lowering technique was utilized adhering to the principles of ALARA. The ex amination is degraded by large body habitus, and by streak artifact from the body wall abutting the C T gantry. There is also streak artifact from the arms which could not be elevated above the abdomen a n extensive metallic spinal fusion hardware, as well as motion artifact. CT DOSE: 3709.77 mGy.cm FINDINGS: Lung bases: The heart is top normal in size noting trace pericardial effusion. There are coronary art angelia calcifications. There is trace right pleural effusion and bibasilar atelectasis. Postoperative ch mikey is noted at the gastroesophageal junction. Postoperative change is noted in the right chest wall suggesting previous mastectomy. Intramuscular hemorrhage is seen in the partially visualized right l atissimus dorsi on image #16. Liver: The unenhanced liver is normal in size, contour, and attenuation. There is no intrahepatic giovanna iary ductal dilatation. Gallbladder: Surgically absent noting clips in the gallbladder fossa. Spleen: Normal in size and attenuation. Pancreas: There is near complete fatty atrophy of the pancreas. Adrenal glands: Unremarkable. Kidneys: The unenhanced kidneys are atrophic and without hydronephrosis. There are at least 3 nonobst ructing left or a calculi which measure up to 13 mm. A 5 mm nonobstructing calculus is noted in the r ight lower pole. There is no evidence of contour deforming renal mass lesion. Abdominal vasculature: The abdominal aorta is normal in course and caliber noting advanced atheroscle rotic calcification. Bowel: There is mild to moderate colonic fecal retention. No bowel obstruction is seen. There are sca ttered colonic diverticula without CT evidence of acute diverticulitis. The appendix is not visualiz ed. Peritoneum/retroperitoneum: There is no intraperitoneal free air or abdominal ascites. No retroperito monie hematoma is identified. A fat-containing ventral hernia is noted in the pelvis. Lymphadenopathy: None. Pelvic viscera: The bladder is decompressed around a Hess catheter and cannot be evaluated. The uter us is surgically absent. No adnexal lesion is seen. Intramuscular hemorrhage is noted in the left glu teus medius muscle. This is best seen on image #291 and measures approximately 10 x 5 cm. Skeletal structures: The skeletal structures are osteopenic. There is lumbosacral spondylosis with po stoperative change of L3-S1 spinal fusion. No lytic or blastic lesions are seen. IMPRESSION: 1. Streak and motion compromised examination. 2. Intramuscular hemorrhage is noted in the left gluteus medius and the partially imaged right latiss imus dorsi. The latissimus dorsi hemorrhage is new from the 06/23/[address] 3. Trace right pleural effusion. 4. Bilateral nephrolithiasis. 5. Additional findings as above. ACT 112: Negative or not required by law. Electronically signed by: Vinay Eubanks M.D. 07/05/2020 4:19 PM
[2020-07-05] MEDS ORDERED: CALCIUM GLUCONATE 10% 2,000 MG in SODIUM CHLORIDE 0.9% 50 ML IV ONE (16:30)
--- NOTE | 2020-07-05 18:49 | Discharge Summary ---
Date of Service date of admission - June 23, 2020 anticipated date of discharge - July 05, 2020 Admission HPI Per Admitting Provider Celina Mcbride is an 80yo C female with history of PAF, T2DM, GERD, morbid obesity, and CAD presenting with Covid-19 infection. Patient states that she has felt fatigued and weak over the last 2-3 days. She has had a slight cough and shortness of breath. She lives with her and has a outside plant cable engineer come into the home to assist. The outside plant cable engineer recently tested positive for Covid-19 infection as well and her is being admitted presently with Covid-19 infection. Patient requires a lot of assistance at home with ambulation, meals and medications. She is unable to care for herself alone in the home. Of note - COVID-19 testing on 06/20/20 was POSITIVE. On arrival to the ER patient febrile at 38.1, tachypneic with adequate oxygenation on room air. Saturations 94-97% ER Course: Tylenol 1000mg, Benadryl 25mg IV, Solumedrol 125mg IV Principal Diagnosis 1. persistent staph aureus (MSSA) bacteremia 2. 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 acute renal failure 4. COVID-19 pneumonia with acute hypoxic respiratory failure 5. [id number] a.fib, now back in NSR with amiodarone 6. acute blood loss anemia 2nd #7 7. left gluteus hemorrhage/hematoma 8. lumbar spine seroma with concern for infection Discharge Exam Constitutional + morbidly obese and + altered mental status; no acute distress ENMT Mouth: + oral mucosal abnormality (thrush on tongue ) Respiratory + tachypneic (RR 20s); no respiratory distress Auscultation: + diminished lung sounds (bases ); no crackles and no wheezes Cardiovascular Rate/Rhythm: regular rate and regular rhythm Heart Sounds: normal S1 and normal S2; no murmur Vessels: posterior tibial pulses present and dorsalis pedis pulses present; no JVD Extremities: no edema Gastrointestinal (Abdomen) normal bowel sounds, soft, nontender, no hepatosplenomegaly Musculoskeletal Spine: + lumbar spinal tenderness right upper back hematoma, near scapula, about 3cm in diameter Skin large ulcer over right chest wall - clean, no drainage, no odor. no flank ecchymoses to suggest retroperitoneal hemorrhage. Psychiatric Orientation: alert, oriented to person and oriented to place; + not oriented to time Discharge Data Allergies Allergy/AdvReac Type Severity Reaction Status Date / Time bee venom protein (honey bee) Allergy Severe SWELLING Verified 06/23/20 21:36 SOB iodine Allergy Severe RASH; Verified 06/23/20 21:36 SHORTNESS OF BREATH codeine Allergy Intermediate SWELLING Verified 06/23/20 21:36 metformin Allergy Intermediate Diarrhea Verified 06/23/20 21:36 Penicillins Allergy Intermediate RASH/HIVES Verified 06/23/20 21:36 chocolate flavor Allergy Mild Diarrhea Verified 06/29/20 08:20 procaine Allergy Mild NOVOCAINE-R Verified 06/23/20 21:36 AKILAH Cephalosporins Allergy Unknown UNKNOWN Verified 07/01/20 14:50 clarithromycin Allergy Unknown Unknown Verified 06/29/20 08:20 shellfish derived Allergy Unknown Unknown Verified 06/24/20 13:45 Consultations [facility] Card[facility] [employer] [facility] Plastic Surgery [facility] Infectious Diseases (telehealth) Pharmacy for glycemic management PT, OT Procedures Performed 1. DC cardioversion - 06/29/20 - Matt Gomez MD 2. PRBC infusion - 07/05/20 3. Ultrasound-guided peripheral IV - left arm 4. echocardiogram - * EF 50-55% * septal motion consistent with conduction abnormality * normal valve function * no regional wall motion abnormalities * NO OBVIOUS VALVULAR VEGETATIONS Ordered Studies Chest CTA 06/23/20 20:15 CHEST CTA for PULMONARY ARTERIES CT DOSE: 1053.68 mGy.cm HISTORY: Atypical chest pain. Covid positive. TECHNIQUE: Multiaxial CT images of the chest were performed following the intravenous administration of contrast to evaluate the pulmonary arteries. Maximal intensity projection images were also obtained. A dose lowering technique was utilized adhering to the principles of ALARA. COMPARISON STUDY: Chest CTA 08/07/2018. FINDINGS: Normal caliber thoracic aorta with no evidence for dissection. The heart is mildly enlarged. No pleural or pericardial effusions. Bilateral lower lobe subsegmental pulmonary arteries are nondiagnostic due to the motion artifact. Otherwise, no filling defects within the remaining pulmonary arteries to suggest pulmonary embolus. No mediastinal or hilar lymphadenopathy. Limited views of the upper abdomen demonstrate a normal liver, spleen, and adrenal glands. There are few punctate left renal calculi. Prior cholecystectomy. Mild circumferential thickening of the esophagus, unchanged. 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 This remains unchanged. There is a single prominent right axillary lymph node with adjacent fat stranding measuring 8 mm. This is also unchanged. No suspicious lytic or blastic osseous lesions. No pneumothorax. Mild emphysema. The central airways are patent. Calcified granuloma within the left lower lobe. A few bibasilar linear densities consistent with subsegmental atelectasis. No focal lung consolidations to suggest pneumonia. Linear densities within the right upper lobe anteriorly also favors scarring. IMPRESSION: 1. No evidence for pulmonary embolus with limitations as described above. 2. No focal lung consolidations to suggest pneumonia. 3. Mild emphysema. 4. Additional findings as described above. ACT 112: Negative or not required by law. Electronically signed by: Ariel Carrillo M.D. 06/24/2020 7:56 AM Chest X-Ray 06/23/20 20:15 XR chest 1V portable CLINICAL HISTORY: SEPSIS COMPARISON STUDY: 04/28/2019 FINDINGS: The heart is enlarged. The left hemidiaphragm is obscured. A left pleural effusion and/or left basilar atelectasis/consolidation cannot be excluded. Clinical and radiographic follow-up is recommended. Degenerative changes involve the shoulders. There is radiographic evidence of chronic rotator cuff tear/degeneration. Postsurgical changes involve the right shoulder. IMPRESSION: 1. Cardiomegaly 2. Left hemidiaphragm is obscured. This suggests a left pleural effusion and/or left lower lobe atelectasis/consolidation. Clinical and radiographic follow-up recommended ACT 112: Negative or not required by law. Electronically signed by: Fletcher Fernando M.D. 06/24/2020 6:48 AM Chest X-Ray 06/29/20 08:09 XR chest 1V portable HISTORY: 80 years-old Female hypoxia, afib RVR acute hypoxia. Atrial fibrillation COMPARISON: Chest radiograph and CTA chest 06/23/2020 TECHNIQUE: Portable AP view the chest FINDINGS: Cardiac silhouette is enlarged. Unchanged blunting of the costophrenic angles. Left lung base opacity redemonstrated. No pneumothorax, large pleural effusion or overt pulmonary edema. Degenerative changes of the shoulders and spine. IMPRESSION: 1. Cardiomegaly without pulmonary edema. 2. Opacity of the left lung base redemonstrated suggestive of summation density/atelectasis. Pneumonia considered less likely. ACT 112: Negative or not required by law. The above report was generated using voice recognition software. It may contain grammatical, syntax or spelling errors. Electronically signed by: Jaziel Martin M.D. 06/29/2020 8:28 AM Chest X-Ray 06/30/20 00:00 XR chest 1V portable HISTORY: 80 years-old Female F/U COVID-19 acute shortness of breath COMPARISON: Chest radiograph 06/29/2020 TECHNIQUE: Portable AP view of the chest FINDINGS: Cardiac silhouette is enlarged. Pulmonary vascular congestion without pulmonary edema. Inferior lung bases are not imaged. Minimal subsegmental bibasilar opacities. Degenerative changes of the shoulders and spine. IMPRESSION: 1. Cardiomegaly with pulmonary vascular congestion. 2. Mild bibasilar densities suggestive of atelectasis. A mild pneumonitis could appear similarly. ACT 112: Negative or not required by law. The above report was generated using voice recognition software. It may contain grammatical, syntax or spelling errors. Electronically signed by: Jaziel Martin M.D. 06/30/2020 9:25 AM KUB X-Ray 07/01/20 12:38 XR KUB/Abdomen 1 view CLINICAL HISTORY: LLQ abd pain COMPARISON STUDY: No previous studies for comparison. FINDINGS: The study was performed in a portable fashion. The upper abdomen and diaphragms are not included on this study. There are postsurgical changes in the lumbar spine. There is no pathologic bowel dilatation. IMPRESSION: 1. Technically limited portable study. Nonobstructive bowel gas pattern. ACT 112: Negative or not required by law. Electronically signed by: Fletcher Fernando M.D. 07/01/2020 1:[address] 07/02/20 17:56 CT OF THE CERVICAL SPINE WITHOUT CONTRAST CLINICAL HISTORY: recent fall, pain, r/o fracture COMPARISON STUDY: CT of the cervical spine May 03, 2009. Cervical spine radiographs September 21, 2013. MRI of the cervical spine May 15, 2009. TECHNIQUE: Helical axial images of the cervical spine were obtained without IV contrast. Sagittal and coronal reconstructions were viewed. Automated exposure control was utilized for the study. A dose lowering technique was utilized adhering to the principles of ALARA. FINDINGS: Alignment of the cervical spine is anatomic. Vertebral body heights are maintained. No acute cervical spine fracture or subluxation is present. There is no prevertebral edema. Facet joints are intact. Severe multilevel facet arthrosis is noted. There is moderate to severe multilevel degenerative disc disease with disc space narrowing and extensive osteophytosis. Posterior disc osteophyte complex is most pronounced at T1-T2. IMPRESSION: 1. No acute cervical spine fracture or subluxation. 2. Severe multilevel degenerative changes within the cervical spine. ACT 112: Negative or not required by law. Electronically signed by: Mark Fine M.D. 07/03/2020 7:09 AM Lumbar Spine MRI 07/02/20 17:56 MRI OF THE LUMBAR SPINE WITHOUT CONTRAST CLINICAL HISTORY: MSSA bacteremia; pain; r/o abscess, discitis COMPARISON STUDY: Lumbar spine radiographs lumbar spine CT August 13, 2015. November 26, 2019. TECHNIQUE: Utilizing a 1.5 Ryanne magnet and dedicated coil, multiplanar, multiecho imaging of the lumbar spine was performed without IV contrast. FINDINGS: For purposes of numbering on this exam, the L5-S1 disc space is assigned to axial image 14 of 15. This exam is compromised by motion artifact. Postoperative findings consistent with L5-S1 discectomy and posterior decompression with bilateral pedicle screw fusion from L3 through S1 are noted. Note is made of a 4.9 x 2.3 x 3.4 cm laminectomy bed fluid collection at the L4-L5 level. No additional fluid collections are present. The conus terminates at the L1 level. Increased T2 signal within the operative bed is likely postsurgical or reflects edema. No epidural fluid collection is identified to suggest an epidural abscess. Several hemangiomas are noted. Note is made of diminished T1 signal along the inferior endplate of L1 with slight increased STIR signal. This is likely degenerative. There is no evidence for discitis or osteomyelitis on this examination. There is no paravertebral edema. L1-2: There is mild disc bulge with ligamentous hypertrophy and facet arthrosis. There is mild narrowing of the central canal, lateral recesses and neural foramen. L2-3: There is disc space narrowing with disc bulge and ligamentous hypertrophy. There is mild narrowing of the central canal, lateral recesses and neural foramen. L3-4: The central canal and neural foramen are patent. L4-5: The central canal and neural foramen are patent. L5-S1: The central canal and neural foramen are patent. There is slight anterolisthesis of L5 on S1. IMPRESSION: 1. Status post L5-S1 discectomy and posterior decompression bilateral pedicle screw fusion from L3 through S1. 4.9 x 2.3 x 3.4 cm laminectomy bed fluid collection at the L4-L5 level favors a seroma. 2. No acute process within the lumbar spine by MRI. No evidence for discitis. No epidural abscess. 3. Exam compromised by artifact. 4. Mild multilevel central canal stenosis, as described above. ACT 112: Negative or not required by law. Electronically signed by: Mark Fine M.D. 07/03/2020 7:19 AM Chest X-Ray 07/03/20 17:48 XR chest 1V portable HISTORY: 80 years-old Female tachypnea acute shortness of breath COMPARISON: Chest radiograph 06/30/2020, CTA chest 06/23/2020 TECHNIQUE: Portable AP view of the chest FINDINGS: Cardiac silhouette is enlarged. No overt pulmonary edema. Unchanged mild interstitial coarsening of the lung bases suggestive of atelectasis/scarring. Surgical clips project over the epigastric region. Degenerative changes of the shoulders and spine. IMPRESSION: Cardiomegaly without acute process. ACT 112: Negative or not required by law. The above report was generated using voice recognition software. It may contain grammatical, syntax or spelling errors. Electronically signed by: Uzair Martin M.D. 07/03/2020 6:25 PM Abdomen/Pelvis CT 07/05/20 14:48 CT SCAN OF THE ABDOMEN AND PELVIS WITHOUT IV CONTRAST CLINICAL HISTORY: Acute anemia. COMPARISON STUDY: Abdominal CT dated 12/12/2019. Chest CT dated 06/23/2020. TECHNIQUE: CT scan of the abdomen and pelvis is performed from the lung bases to the proximal femora. Images are reviewed in the axial, sagittal, and coronal planes. IV contrast was not administered for this examination. A dose lowering technique was utilized adhering to the principles of ALARA. The examination is degraded by large body habitus, and by streak artifact from the body wall abutting the CT gantry. There is also streak artifact from the arms which could not be elevated above the abdomen an extensive metallic spinal fusion hardware, as well as motion artifact. CT DOSE: 3709.77 mGy.cm FINDINGS: Lung bases: The heart is top normal in size noting trace pericardial effusion. There are coronary artery calcifications. There is trace right pleural effusion and bibasilar atelectasis. Postoperative change is noted at the gastroesophageal junction. Postoperative change is noted in the right chest wall suggesting previous mastectomy. Intramuscular hemorrhage is seen in the partially visualized right latissimus dorsi on image #16. Liver: The unenhanced liver is normal in size, contour, and attenuation. There is no intrahepatic biliary ductal dilatation. Gallbladder: Surgically absent noting clips in the gallbladder fossa. Spleen: Normal in size and attenuation. Pancreas: There is near complete fatty atrophy of the pancreas. Adrenal glands: Unremarkable. Kidneys: The unenhanced kidneys are atrophic and without hydronephrosis. There are at least 3 nonobstructing left or a calculi which measure up to 13 mm. A 5 mm nonobstructing calculus is noted in the right lower pole. There is no evidence of contour deforming renal mass lesion. Abdominal vasculature: The abdominal aorta is normal in course and caliber noting advanced atherosclerotic calcification. Bowel: There is mild to moderate colonic fecal retention. No bowel obstruction is seen. There are scattered colonic diverticula without CT evidence of acute diverticulitis. The appendix is not visualized. Peritoneum/retroperitoneum: There is no intraperitoneal free air or abdominal ascites. No retroperitoneal hematoma is identified. A fat-containing ventral hernia is noted in the pelvis. Lymphadenopathy: None. Pelvic viscera: The bladder is decompressed around a Hess catheter and cannot be evaluated. The uterus is surgically absent. No adnexal lesion is seen. Intramuscular hemorrhage is noted in the left gluteus medius muscle. This is best seen on image #291 and measures approximately 10 x 5 cm. Skeletal structures: The skeletal structures are osteopenic. There is lumbosacral spondylosis with postoperative change of L3-S1 spinal fusion. No lytic or blastic lesions are seen. IMPRESSION: 1. Streak and motion compromised examination. 2. Intramuscular hemorrhage is noted in the left gluteus medius and the partially imaged right latissimus dorsi. The latissimus dorsi hemorrhage is new from the 06/23/[address] 3. Trace right pleural effusion. 4. Bilateral nephrolithiasis. 5. Additional findings as above. ACT 112: Negative or not required by law. Electronically signed by: Vinay Eubanks M.D. 07/05/2020 4:19 PM Hospital Course (1) Bacteremia due to methicillin susceptible Staphylococcus aureus (MSSA): Bacteremia, likely 2nd to chronic ulceration of right chest wall. Culture from that wound grew MSSA as well. Blood cultures from 06/29, 07/01, and 07/03 all positive for staph aureus. Cultures have remained positive despite appropriate IV antibiotic therapy with ancef. 2D Echo without obvious valvular vegetations. Ultimately may need LILIANA, however. MRI lumbar-spine w/ and w/o contrast - NO epidural abscess, NO discitis seen. HOWEVER - old seroma from 2004 l-spine surgery was seen. Given the patient's ongoing lumbar back pain infection of this seroma cannot be ruled out unless a culture is obtained. I spoke with Dr Mikhail Noyola of [facility] interventional radiology in [place] on the AM of 07/05/20 who briefly reviewed Mrs. Mcbride's MRI lumbar spine. He stated that he or one of his partners could attempt IR-drainage of this seroma. Given the patient's persistent bacteremia, worsening WBC count, and overall wo rsening status I contacted [facility] and spoke with Dr Prashant Hyman from the ICU team. Dr Hyman graciously accepted Mrs. Mcbride in transfer to [facility] ICU for ongoing care and for consideration of IR-drainage of the lumbar seroma. Of note - ESR on 07/01 was 100, falling to 76 on 07/04. Procalcitonin peak was 8.7 on 07/01, falling to 1.8 on 07/05. (2) Acute respiratory failure with hypoxia: 2nd COVID-19 pneumonia +/- acute/chronic diastolic CHF in setting of COPD. Had episodes of respiratory distress throughout her stay associated with pulmonary edema as well as compensation for metabolic acidosis. Mainly on 2 liters of NC O2 in the days leading up to transfer, with inconsistent use of BIPAP at HS. (3) COVID-19: With PNEUMONIA. s/p 10-day course of IV steroids during this hospitalization. did NOT receive remdesivir or convalescent plasma. date of diagnosis - 06/20/20. (4) Sepsis: 2nd to bacteremia - MSSA. source -- large, chronic right chest wall ulcer which also grew MSSA. see "bacteremia" above. COVID-19 also contributed to sepsis. (5) Acute blood loss anemia: Hb was 12.1 on 07/02/20. Then 10.4 on 07/04/20. Further falling to 8.4 and 7.2 on 07/05/20. Acute blood loss anemia likely 2nd to large spontaneous hemorrhage into the left buttock as seen on CT abd/pelvis on 07/05/20. Also had a smaller hematoma over the right upper back. No evidence of retroperitoneal hematoma. Small amount of subcutaneous bleeding was also seen in the right abdominal wall panus on exam. Acute blood loss anemia occurred in the setting of therapeutic lovenox use for a.fib/COVID VTE prophylaxis. She was also taking aspirin. Last dose of lovenox was PM of 07/04 and last dose of aspirin was 07/04. Patient was given PRBCs on 07/05. (6) Spontaneous hemorrhage: LARGE hematoma of left buttock. Small hematoma right upper back. Small hematoma in right lower abdominal wall pannus. All resulting in acute blood loss anemia as above. (7) Open wound of chest (wall), complicated: Chronic, non-healing ulcer of right chest wall of several years duration. Apparently started years ago as an abscess of the right chest wall s/p right mastectomy. Wound was clean during this hospital stay with no drainage or foul odor. Surface wound culture did grow MSSA. Seen by Kasia Oliveros MD - [facility] plastics - who follows her regularly in the clinic for this ulcer. No surgical intervention needed on the ulcer during the hospital stay. Imaging did not reveal any deeper abscess near the ulcer. (8) Atrial fibrillation with rapid ventricular response: Significant difficult with her PAF during this admission. Attempts at rate control with diltiazem and metoprolol were unsuccessful. Was DC cardioverted on 06/29/20 with buddhism of NSR. Unfortunately she reverted back to rapid a.fib a short time later. Ultimately she required amiodarone infusion & institution of digoxin IV then PO. On the AM of 07/04/20 the patient spontaneously converted back to NSR while on amiodarone infusion. At time of transfer she remains on amiodarone infusion and remains in NSR. Metoprolol and digoxin were held on 07/05/20 due to active hemorrhage, worsening renal function, and low-normal BPs at times. (9) Seroma of musculoskeletal structure after musculoskeletal system procedure: seroma seen on MRI of lumbar-spine had lumbar-spine surgery in [address] Solo Barboza at [facility] uncertain if this is harboring staph infection -- see discussion above in "bacteremia" (10) Hypotension: 2nd a.fib RVR, bacteremia, bleeding, and medications. intermittent throughout the hospital stay. (11) Acute kidney injury: sepsis-associated ATN, intermittent use of diuretics for CHF, and then hypovolemia from hemorrhage on 07/04 into 07/05 were the likely factors. creatinine on day of admission = 0.9. creatinine jamia to 1.8 on 07/04/20, then worsened further on 07/05/20 to 3.1. FeNa was very low at 0.1 c/w pre-renal etiology of her DANIEL on 07/05 (hemorrhage). Patient voiced that she wasn't sure if she would want hemodialysis if her renal function worsened further. (12) Metabolic encephalopathy: ongoing. 2nd MSSA bacteremia/sepsis, COVID, hospital delirium, etc. high-dose gabapentin in setting of DANIEL could have contributed as well. gabapentin held starting 07/05/20. Ammonia level wnl. (13) COPD (chronic obstructive pulmonary disease): Continue Fluticasone/Vilanterol Continue Albuterol Finished 10-day steroid course for COVID-19 pneumonia while at [facility] [address] (14) Diastolic congestive heart failure: Patient had recurrent acute on chronic episodes during the stay likely due to her severely uncontrolled a.fib. Had occasional need for diuretic therapy. (15) Depression: Continue Citalopram (16) Hypercholesteremia: Holding Atorvastatin as AST was high (likely from COVID) (17) Diabetes mellitus type 2, insulin dependent: A1C : 7.0% pharmacy glycemic team provided DM management (18) Mild CAD: no evidence of ACS or ischemic symptoms during her hospitalization Held aspirin starting 07/05/20 with her acute bleeding Held statin due to elevation of transaminases echo with no LV wall motion abnormalities (19) GERD (gastroesophageal reflux disease): in the event that patient was having GI bleeding she was placed on IV PPI twice daily on 07/05/20 (20) Morbid obesity with BMI of 45.0-49.9, adult: BMI 47 (21) Candidiasis of mouth and esophagus: nystatin 5cc qid swish/spit (22) Hypertension: (23) DVT prophylaxis: had been receiving lovenox at therapeutic dosing due to her atrial fibrillation. lovenox was also being used for VTE prophylaxis in setting of extreme immobility and COVID-19 infection. I would like to thank Dr Prashant Hyman for accepting Mrs Mcbride in transfer to [facility] for ongoing care. Total Time Total Time Spent Total Time Spent (In Minutes): 120 Total Time Includes: Examination of the Patient, Discharge Planning, Medication Reconciliation, Communication With Other Providers and Other (critical care) Discharge Plan Discharge Items Patient Disposition: Transfer Acute Care Hospital Reason For Visit: COVID+, ILLNESS Discharge Diagnosis: 1. persistent staph aureus (MSSA) bacteremia 2. 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 acute renal failure 4. COVID-19 pneumonia 5. [id number] a.fib, now back in NSR with amiodarone 6. acute blood loss anemia 2nd #7 7. left gluteus hemorrhage/hematoma 8. lumbar spine seroma with concern for infection - IR drainage needed 9. type 2 diabetes 10. morbid obesity - BMI 47 Activity: As commented below Activity Comment: bedrest Non-emergency contact: Primary Care Provider Call non-emergency contact if: you have any medication questions Follow-up/Referrals: Paul Leary III, MD [Primary Care Provider] - Diet: Nothing by Mouth Addtl Attending Provider Instructions: Further guidance to be given following admission at [facility] in [place], [place] Pending Studies at Discharge: Yes Studies:: blood cultures from 07/03/20 with GPC in clusters- expected to be staph aureus when finalized Stand-Alone Forms: [facility] Skilled Items Patient informed of condition?: Yes DNR: No Discharge Level of Care: Other Communicable Disease: Yes Discharge Prognosis: Other Lines: Peripheral IV and US Guided Peripheral IV Urinary Catheter: Yes Medications and DC Order Prescriptions: New nystatin 100,000 unit/mL Suspension 5 ml PO QID Qty: 150 RF: 0 cefazolin 1 gram recon soln 1 g IV Q12H Qty: 25 RF: 0 amiodarone in dextrose,iso-osm 360 mg/200 mL (1.8 mg/mL) solution See Rx Instructions .ROUTE .COMPLEX Qty: 2000 RF: 0 Continued ipratropium bromide 0.03 % spray,non-aerosol 2 sprays INTNAS TID PRN (Reason: allergy symptoms) Qty: 30 RF: 2 albuterol sulfate [Ventolin HFA] 90 mcg/actuation HFA aerosol inhaler 2 puffs INH QID PRN (Reason: shortness of breath or wheezing) Qty: 8 RF: 5 (DME) lancets [OneTouch Delica Plus Lancet] 30 gauge misc See Rx Instructions .ROUTE .MEDSUPPLY Qty: 100 RF: 3 Breo Ellipta 100-25 mcg/dose blister with device 1 inh INH DAILY Qty: 28 RF: 5 (DME) insulin syringe-needle U-100 [BD Insulin Syringe Ultra-Fine] 0.3 mL 31 gauge x 5/16" syringe See Rx Instructions .ROUTE .MEDSUPPLY Qty: 100 RF: 3 (DME) FreeStyle Vanessa 14 Day Sensor Kit See Rx Instructions .ROUTE .MEDSUPPLY Qty: 1 RF: 0 (DME) FreeStyle Vanessa 14 Day [place] Misc See Rx Instructions .ROUTE .MEDSUPPLY Qty: 1 RF: 0 nitroglycerin 0.4 mg tablet, sublingual 0.4 mg sublingual Q5M PRN (Reason: chest pain) Qty: 25 RF: 3 citalopram [Celexa] 40 mg tablet 40 mg PO QPM Qty: 90 RF: 3 fluticasone propionate [Allergy Relief (fluticasone)] 50 mcg/actuation spray,suspension 2 spray intranasal Q12H Qty: 15.8 RF: 11 (DME) Lift Chair Misc See Rx Instructions .ROUTE .MEDSUPPLY Qty: 1 RF: 0 nystatin 100,000 unit/gram cream 1 appln TOP BID Qty: 60 RF: 11 albuterol sulfate 2.5 mg /3 mL (0.083 %) solution for nebulization 2.5 mg INH QID PRN (Reason: SOB) RF: 0 Discontinued nystatin 100,000 unit/gram powder 1 appln TOP BID 21 Days Qty: 30 RF: 2 pantoprazole [Protonix] 40 mg tablet,delayed release (DR/EC) 40 mg PO QAM Qty: 90 RF: 3 tramadol [Ultram] 50 mg tablet 50 - 100 mg PO Q6 PRN (Reason: Pain - Dr. Leary ALKA# [id number]) Qty: 30 RF: 0 metoprolol succinate 50 mg tablet extended release 24 hr 50 mg PO DAILY Qty: 60 RF: 6 potassium chloride [Klor-Con 10] 10 mEq tablet extended release 10 meq PO QAM Qty: 90 RF: 3 gabapentin [Neurontin] 600 mg tablet 1,200 mg PO BID Qty: 360 RF: 3 atorvastatin [Lipitor] 40 mg tablet 40 mg PO HS Qty: 90 RF: 3 furosemide 40 mg tablet 40 mg PO QAM Qty: 90 RF: 3 Lantus U-100 Insulin 100 unit/mL solution 30 unit subcut BID Qty: 20 RF: 11 meloxicam 7.5 mg tablet 7.5 mg PO BID PRN (Reason: Pain) Qty: 60 RF: 11 cyclobenzaprine 5 mg tablet 5 mg PO TID PRN (Reason: muscle spasm) Qty: 30 RF: 1 docusate sodium 100 mg capsule 200 mg PO DAILY Qty: 60 RF: 11 metoclopramide HCl [Reglan] 10 mg tablet 10 mg PO QID PRN (Reason: nausea and vomiting) Qty: 120 RF: 5 aspirin [Adult Aspirin Regimen] 81 mg tablet,delayed release (DR/EC) 81 mg PO DAILY RF: 0 colestipol 1 gram tablet 2 g PO TID RF: 0 Krames/Other Patient Handouts: Managing Type 2 Diabetes, Managing Diabetes: The A1C Test Admission Data Admit Date/Time: 06/23/20 23:14 Attending Provider: Darell Flores Admit Provider: Ana Maria West Primary Care Provider: Paul Leary III Other Providers: [place],[facility] [place] ; [facility] [place] [facility], ; Ana Maria West ; Myles Graff ; Vinod Gomez ; Kasia Oliveros ; Carlton Wills ; Sarthak Weinberg ; Michale West I. ; Ernie Boudreaux II ; Carol Willams ; Juan Manuel Livingston ; [facility] ; Omar Cook Coding Level of Care Code None Diagnoses Bacteremia due to methicillin susceptible Staphylococcus aureus (MSSA) R78.81; B95.61 Acute respiratory failure with hypoxia J96.01 COVID-19 U07.1 Sepsis A41.01; R65.20 Sepsis acute organ dysfunction status: with acute organ dysfunction Sepsis type: methicillin susceptible Staphylococcus aureus Severe sepsis acute organ dysfunction type: unspecified Severe sepsis shock status: without septic shock Acute blood loss anemia D62 Spontaneous hemorrhage R58 Open wound of chest (wall), complicated S21.109A Laterality: right Atrial fibrillation with rapid ventricular response I48.91 Seroma of musculoskeletal structure after musculoskeletal system procedure M96.842 Hypotension I95.9 Acute kidney injury N17.9 Metabolic encephalopathy G93.41 COPD (chronic obstructive pulmonary disease) J44.9 COPD type: unspecified COPD Diastolic congestive heart failure I50.32 Heart failure chronicity: chronic Depression F32.9 Active/Remission status: remission status unspecified Depression Type: major depressive disorder Major depression recurrence: unspecified whether recurrent Hypercholesteremia E78.00 Diabetes mellitus type 2, insulin dependent E11.9; Z79.4 Mild CAD I25.10 GERD (gastroesophageal reflux disease) K21.9 Esophagitis presence: esophagitis presence not specified Morbid obesity with BMI of 45.0-49.9, adult E66.01; Z68.42 Candidiasis of mouth and esophagus B37.81; B37.0 Hypertension I10 Hypertension type: essential hypertension DVT prophylaxis Z29.9 Time Spent (min) 120 Comment see E/M ramón for critical care time
[2020-07-05] MEDS ORDERED: Nursing to Pharmacy Communication SCH (19:15)
[2020-07-05] MEDS: CITALOPRAM 40 MG TAB PO SCH (20:20)
[2020-07-05 20:31] LABS: Hematocrit (blood only) 18.6 % (37-47); Hemoglobin 6.1 g/dL (12.0-16.0); Mean Corpuscular Hemoglobin 27.7 pg (25-34); Mean Corpuscular Hgb Conc 32.8 g/dL (32-36); Mean Corpuscular Volume 84.5 fL (80-100); Mean Platelet Volume 11.3 fL (7.4-10.4); Nucleated RBC # (auto) 0.06 K/uL (0-0); Nucleated RBC % (auto) 0.2 %; Platelet Count 360 K/uL (130-400); RDW Standard Deviation 46.4 fL (36.4-46.3); White Blood Count 28.91 K/uL (4.8-10.8)
--- NOTE | 2020-07-05 21:23 | Billing Data ---
Date of Service July 05, 2020 Coding Level of Care Code Critical Care 1st 30-74 mins Time Spent (min) 120
--- NOTE | 2020-07-05 21:23 | Billing Data ---
Date of Service July 05, 2020 Coding Level of Care Code Critical Care ea addt'l 30 min (25 - SIGNIFICANT, SEPARATELY IDENTIFIABLE ) Time Spent (min) 120
[2020-07-05 22:20] LABS: Fibrinogen 374 mg/dl (184-400); INR 1.2 (0.9-1.1); Partial Thromboplastin Ratio 1.2; Partial Thromboplastin Time 32.2 Seconds (21.0-31.0); Prothrombin Time 11.8 Seconds (9.0-12.0)
[2020-07-05 22:23] LABS: D Dimer 1790 ug/L FEU (0-500)
[2020-07-06] MEDS ORDERED: INSULIN ASPART 100 UNITS/ML 3 ML PEN SC SCH ×2
[2020-07-06] MEDS ORDERED: ceFAZolin 1000MG 1,000 MG/7.5 ML SYR IV SCH (02:00)
== END 2020-07-05 23:25 | disposition short-term general hospital (02) | DRG 177 ==
LOC: ED 20:09 → SUATTDRO 23:14 → 3E 23:14 → 2S 06-29 07:58 → 2E 06-29 13:20

== ENCOUNTER 2020-07-30 11:34 | Inpatient (IN) ==
[2020-07-30 12:34] LABS: iSTAT Creatinine 2.4 mg/dl (0.6-1.3); iSTAT Hemoglobin 6.5 g/dl (12.0-16.0); iSTAT Potassium 5.1 mmol/L (3.3-5.0)
--- NOTE | 2020-07-30 13:08 | XRay Report ---
XR chest 1V portable HISTORY: 80 years-old Female sob acute shortness of breath COMPARISON: Chest radiograph 07/03/2020 TECHNIQUE: Portable AP view of the chest FINDINGS: Cardiomegaly. Calcified plaque the thoracic aorta. Pulmonary vascular congestion with new interstitia l reticular opacities, right greater than left within a mid and lower lung zone prominent distributio n. A right-sided PICC is present with distal tip in the expected location of the inferior SVC. The pa tient is slightly rotated. No pneumothorax. Trace pleural effusions with mild bibasilar opacities sug gestive of atelectasis. Degenerative changes of the shoulders and spine. IMPRESSION: 1. Cardiomegaly with pulmonary vascular congestion and right greater than left interstitial opacities suggestive of asymmetric pulmonary edema. An interstitial pneumonitis could appear similarly. 2. Trace pleural effusions. 3. Right-sided PICC distal tip terminates in the expected location of the mid SVC. ACT 112: Negative or not required by law. The above report was generated using voice recognition software. It may contain grammatical, syntax o r spelling errors. Electronically signed by: Uzair Martin M.D. 07/30/2020 1:07 PM
--- NOTE | 2020-07-30 13:12 | Emergency Department Note ---
Impression & Plan Breath shortness, CHF (congestive heart failure), Symptomatic anemia, CKD (chronic kidney disease) ED Provider Note NAME: DANK ROSENBAUM AGE: 80 SEX: F : 1940 ARRIVES VIA: Walk-In INFORMANT: Patient ED PROVIDER(S): Maurice Ramey DO CHIEF COMPLAINT: shortness of breath HPI: Patient is an 80-year-old female with a past medical history of acute blood loss anemia, acute respiratory failure, asthma, venous stasis, and morbid obesity that presents to the ER for increasing shortness of breath for the past several days. She notes she is not able to get up and move around anymore. She admits to increased swelling of the legs. Denies any belly pain, nausea, vomiting, or diarrhea. No dysuria, urgency, or frequency. Rest does improve her symptoms. She is chronically on oxygen. No other exacerbating or remitting factors. ROS: See above HPI for pertinent positives & negatives. A total of 10 systems reviewed and were otherwise negative. PAST MEDICAL HISTORY:See Below PAST SURGICAL HISTORY:See Below FAMILY HISTORY:See Below SOCIAL HISTORY:See Below HOME MEDICATIONS:See Below ALLERGIES:See Below VITALS:See Below PHYSICAL EXAMINATION: GENERAL: Sitting up in bed, alert, chronically ill-appearing, disheveled, morbidly obese EYE EXAM: normal conjunctiva. PERRL and EOM's grossly intact. OROPHARYNX: no exudate, no erythema, lips, buccal mucosa, and tongue normal and mucous membranes are moist NECK: supple, no nuchal rigidity, no adenopathy, non-tender LUNGS: Clear to auscultation. Normal chest wall mechanics HEART: no murmurs, S1 normal and S2 normal ABDOMEN: abdomen soft, non-tender, normo-active bowel sounds, no masses, no rebound or guarding. UPPER EXTREMITIES: upper extremities are grossly normal. LOWER EXTREMITIES: Diffuse pitting edema in the bilateral lower extremities tracking up to abdomen NEURO EXAM: Awake alert oriented to person place but not year moving all extremities nonfocal. MEDICAL DECISION MAKING: Patient is an 80-year-old female who presents the ER for shortness of breath. IV was established blood was obtained. Labs show anemia at 6.1 down from a baseline of what appears to be 8. Platelets were appropriate at 374. BMP with creatinine of 2.2 up from baseline of 1.5. Potassium was slightly elevated as well at 5.1. Chloride up at 108. Glucose was low and patient was given oral repletion. LFTs bilirubin was unremarkable. Lipase was negative. UA was contaminated. Covid was negative. Patient was typed and crossed and ordered 2 units of PRBCs which was given in the ER. Held on Lasix and will defer to the admission team and blood is completely transfused As she does have some DANIEL. Triage Nursing notes reviewed. Limited review of prior medical records performed Vital Signs: reviewed and remarkable for no significant abnormalities Differential diagnosis: Differential diagnoses includes but is not limited to pneumonia, bronchitis, COPD/Asthma exacerbation, pneumothorax, pulmonary embolism, congestive heart failure, acute coronary syndrome ER treatment provided: See below Diagnostics interpreted by me: ECG: Sinus rhythm rate 80 Normal axis No PVCs QTC 452 Cardiac Monitoring: An order was placed for continuous cardiac monitoring. The monitor shows a rate of 82 with sinus rhythm. Laboratory studies: As stated above and show below. Imaging studies: Portable AP upright 1 view of the chest shows pulmonary vascular congestion Consultation(s): Discussed with the hospitalist for further evaluation Procedures: none Critical Care: None Past Med/Surg History Medical History Anxiety Asthma RARELY NEEDS PRN INH Atrial fibrillation Paroxysmal, not on anticoagulation. Per cardio 12/25/15, "since she has not had a paroxysmal for many years, no therapy will be initiated today. Given her elevated CHADSVASC score, though, would recommend anticoagulation therapy if she were to develop any recurrent episodes of A. fib in the future." Chronic back pain Chronic chest pain Has been evaluated by cardio, ruled to be non-cardiac in origin. 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 Non-obstructive CAD. "Non-cardiac chest pain." History of carpal tunnel release BL History of cataract surgery History of cholecystectomy History of dilatation and curettage History of hysterectomy History of partial gastrectomy History of right mastectomy NO BP/IV RUE History of tonsillectomy History of tooth extraction History of total knee replacement BL History of total shoulder replacement RT Family History Sister Family history of diabetes mellitus Breast cancer Daughter Family history of reaction to anesthesia SLOW TO WAKE UP Grandfather (Maternal) Myocardial infarction Denies family history of Ovarian cancer Prostate cancer Colorectal cancer Social History Smoking Status: Never smoker Second Hand Exposure: No; Hx Alcohol Use: No Hx Substance Use: No Preferred Language: Persian Communication Ability: Effective Visual Impairment: No Limitations 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: No Beliefs That Will Affect Care: None marital status: Current Living Situation: Spouse current occupational status: retired 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 [employer] Feels Safe at Home: Yes Childhood Exposure to Second-Hand Smoke: No Dental Care, Regularly: No Physical Activity Frequency: Does not Exercise Seatbelt Use: always Sunscreen Use: No Assistive Devices: BiPap and Oxygen - Continuous Allergies Allergies Allergy/AdvReac Type Severity Reaction Status Date / Time bee venom protein (honey bee) Allergy Severe SWELLING Verified 07/30/20 14:27 SOB iodine Allergy Severe RASH; Verified 07/30/20 14:27 SHORTNESS OF BREATH codeine Allergy Intermediate SWELLING Verified 07/30/20 14:27 metformin Allergy Intermediate Diarrhea Verified 07/30/20 14:27 Penicillins Allergy Intermediate RASH/HIVES Verified 07/30/20 14:27 chocolate flavor Allergy Mild Diarrhea Verified 07/30/20 14:27 procaine Allergy Mild NOVOCAINE-R Verified 07/30/20 14:27 AKILAH Cephalosporins Allergy Unknown UNKNOWN Verified 07/30/20 14:27 clarithromycin Allergy Unknown Unknown Verified 07/30/20 14:27 shellfish derived Allergy Unknown Unknown Verified 07/30/20 14:27 Home Meds Home Medications Medication Instructions Recorded Confirmed aspirin 81 mg tablet,delayed 81 mg PO DAILY 05/02/19 07/30/20 release albuterol sulfate 2.5 mg INH QID PRN 06/23/20 07/30/20 amiodarone 200 mg PO BID 07/30/20 07/30/20 cefazolin 1 g IV Q12H 07/30/20 07/30/20 citalopram [Celexa] 40 mg PO QPM 07/30/20 07/30/20 enoxaparin 130 mg SUBCUT Q12 07/30/20 07/30/20 furosemide 40 mg PO QAM 07/30/20 07/30/20 gabapentin [Neurontin] 1,200 mg PO BID 07/30/20 07/30/20 insulin glargine [Lantus U-100 25 unit SUBCUT BID 07/30/20 07/30/20 Insulin] metoprolol succinate 50 mg PO DAILY 07/30/20 07/30/20 pantoprazole [Protonix] 40 mg PO QAM 07/30/20 07/30/20 quetiapine [Seroquel] 25 mg PO HS 07/30/20 07/30/20 Previous Rx's Medication Instructions Recorded ipratropium bromide 21 mcg (0.03 2 sprays INTNAS TID PRN #30 ml 10/28/18 %) nasal spray Lift Chair #1 ea 03/09/19 potassium chloride 10 mEq 10 meq PO QAM #90 tab 08/31/19 tablet,extended release atorvastatin 40 mg tablet 40 mg PO HS #90 tab 10/12/19 lancets 30 gauge #100 ea 11/15/19 meloxicam 7.5 mg tablet 7.5 mg PO BID PRN #60 tab 12/19/19 docusate sodium 100 mg capsule 200 mg PO DAILY #60 cap 12/27/19 insulin syringe-needle U-100 0.3 #100 ea 01/29/20 mL 31 gauge x 5/16" flash glucose sensor #1 ea 03/14/20 flash glucose scanning reader #1 ea 03/26/20 nitroglycerin 0.4 mg sublingual 0.4 mg SUBLINGUAL Q5M PRN #25 tab 05/16/20 tablet Results & Data (ED) Vital Signs Vital Signs - 24 hr 07/30/20 11:40 07/30/20 12:38 07/30/20 12:40 Temperature 36.6 C Temperature Source Temporal Artery Scan Pulse Rate 82 82 Pulse Rate from SpO2 Sensor 81 Respiratory Rate 22 28 H Blood Pressure 146/121 H 116/70 Blood Pressure Mean 129 85 Blood Pressure Position Pulse Oximetry 99 100 Oxygen Delivery Method Nasal Cannula Room Air Oxygen Flow Rate 2 Sepsis Recent Fever Within 48 Hours No Sepsis New/Unexplained Change in Mental Status N/A Sepsis Action Taken by Nursing No Action Required 07/30/20 13:00 07/30/20 13:30 07/30/20 14:00 Temperature Temperature Source Pulse Rate 80 79 81 Pulse Rate from SpO2 Sensor 80 80 79 Respiratory Rate 38 H 36 H 27 H Blood Pressure 115/74 127/73 120/60 Blood Pressure Mean 87 91 80 Blood Pressure Position Pulse Oximetry 100 99 100 Oxygen Delivery Method Oxygen Flow Rate Sepsis Recent Fever Within 48 Hours Sepsis New/Unexplained Change in Mental Status Sepsis Action Taken by Nursing 07/30/20 14:30 07/30/20 15:00 07/30/20 15:30 Temperature Temperature Source Pulse Rate 79 84 83 Pulse Rate from SpO2 Sensor 79 84 83 Respiratory Rate 34 H 22 29 H Blood Pressure 123/54 L 120/85 Blood Pressure Mean 77 96 Blood Pressure Position Pulse Oximetry 100 100 98 Oxygen Delivery Method Oxygen Flow Rate Sepsis Recent Fever Within 48 Hours Sepsis New/Unexplained Change in Mental Status Sepsis Action Taken by Nursing 07/30/20 15:31 07/30/20 16:00 07/30/20 16:06 Temperature 36.7 C Temperature Source Oral Pulse Rate 81 78 80 Pulse Rate from SpO2 Sensor 81 78 Respiratory Rate 28 H 27 H 22 Blood Pressure 161/65 H 139/65 139/65 Blood Pressure Mean 97 89 89 Blood Pressure Position Pulse Oximetry 98 99 99 Oxygen Delivery Method Oxygen Flow Rate 2 Sepsis Recent Fever Within 48 Hours Sepsis New/Unexplained Change in Mental Status Sepsis Action Taken by Nursing 07/30/20 16:22 07/30/20 16:30 07/30/20 16:37 Temperature 37.2 C Temperature Source Oral Pulse Rate 78 78 78 Pulse Rate from SpO2 Sensor 78 78 Respiratory Rate 30 H 35 H 24 Blood Pressure 133/59 L 127/59 L 127/59 L Blood Pressure Mean 83 81 81 Blood Pressure Position Lying Pulse Oximetry 99 98 98 Oxygen Delivery Method Oxygen Flow Rate 2 2 Sepsis Recent Fever Within 48 Hours Sepsis New/Unexplained Change in Mental Status Sepsis Action Taken by Nursing 07/30/20 16:45 07/30/20 17:00 07/30/20 17:07 Temperature Temperature Source Pulse Rate 78 80 79 Pulse Rate from SpO2 Sensor 78 82 Respiratory Rate 29 H 24 30 H Blood Pressure 144/78 H 150/105 H 173/75 H Blood Pressure Mean 100 120 107 Blood Pressure Position Pulse Oximetry 100 94 99 Oxygen Delivery Method Oxygen Flow Rate 2 Sepsis Recent Fever Within 48 Hours Sepsis New/Unexplained Change in Mental Status Sepsis Action Taken by Nursing Laboratory Data Result diagrams: 07/30/20 13:29 07/30/20 13:28 Lab Results 07/30/20 07/30/20 07/30/20 Range/Units 12:14 13:23 13:28 WBC (4.8-10.8) K/uL RBC (4.2-5.4) M/uL Hgb (12.0-16.0) g/dL POC Hgb 6.5 L* (12.0-16.0) g/dl Hct (37-47) % POC Hct 19 L* (37-47) % MCV (80-100) fL MCH (25-34) pg MCHC (32-36) g/dL RDW Std Deviation (36.4-46.3) fL RDW Coeff of Erin (11.5-14.5) % Plt Count (130-400) K/uL MPV (7.4-10.4) fL Immature Gran % (Auto) % Neut % (Auto) % Lymph % (Auto) % Lawrence % (Auto) % Eos % (Auto) % Baso % (Auto) % Neut # (Auto) (1.4-6.5) K/uL Lymph # (Auto) (1.2-3.4) K/uL Lawrence # (Auto) (0.11-0.59) K/uL Eos # (Auto) (0-0.5) K/uL Baso # (Auto) (0-0.2) K/uL Immature Gran # (Auto) (0.00-0.02) K/uL Hypochromasia POC Sodium 137 (135-144) mmol/L Sodium 138 (136-145) mmol/L POC Potassium 5.1 H (3.3-5.0) mmol/L Potassium 5.1 (3.5-5.1) mmol/L POC Chloride 104 (101-112) mmol/L Chloride 108 H (98-107) mmol/L Carbon Dioxide 24 (21-32) mmol/L POC Total CO2 21 L (24-31) mmol/L Anion Gap 5.0 (3-11) POC Anion Gap 18.0 (16-25) mmol/L POC BUN 51 H (7-18) mg/dl BUN 54 H (7-18) mg/dl Creatinine 2.26 H (0.6-1.2) mg/dl POC Creatinine 2.4 H (0.6-1.3) mg/dl Est Cr Clr Drug Dosing 26.5 ml/min Est GFR ( Amer) 22.8 ml/min Est GFR (Non-Af Amer) 19.7 ml/min BUN/Creatinine Ratio 23.7 H (10-20) Glucose 48 L* (70-99) mg/dl POC Glucose (70-99) mg/dl POC Glucose (other) 58 L* (70-99) mg/dl Calcium 7.1 L (8.5-10.1) mg/dl POC Ioniz Calcium Felix 1.00 L (1.12-1.32) mmol/l Total Bilirubin 0.3 (0.2-1) mg/dl AST 17 (15-37) U/L ALT < 6 L (12-78) U/L Alkaline Phosphatase 81 (45-117) U/L Total Protein 6.1 L (6.4-8.2) gm/dl Albumin 1.3 L (3.4-5.0) gm/dl Globulin 4.8 H (2.5-4.0) gm/dl Albumin/Globulin Ratio 0.3 L (0.9-2) Lipase 35 L (73-393) U/L Urine Color Urine Appearance (Clear) Urine pH (4.5-7.5) Ur Specific [place] (1.000-1.030) Urine Protein (Negative) Urine Glucose (UA) (Negative) Urine Ketones (Negative) Urine Blood (Negative) Urine Nitrite (Negative) Urine Bilirubin (Negative) Urine Urobilinogen (Negative) Ur Leukocyte Esterase (Negative) Urine WBC (Auto) (0-5) /hpf Urine RBC (Auto) (0-4) /hpf U Hyaline Cast (Auto) (0-5) /lpf U Epithel Cells (Auto) (0-5) /lpf Urine Bacteria (Auto) (Negative) Granular Casts (0) /lpf Urine Yeast (None Prsent) COVID-19 Eval Order SARS-CoV-2 (PCR) (Negative) Blood Type A Positive Antibody Screen NEGATIVE Crossmatch See Detail 07/30/20 07/30/20 07/30/20 Range/Units 13:29 13:45 13:45 WBC 5.24 (4.8-10.8) K/uL RBC 2.02 L (4.2-5.4) M/uL Hgb 6.1 L* (12.0-16.0) g/dL POC Hgb (12.0-16.0) g/dl Hct 19.8 L* (37-47) % POC Hct (37-47) % MCV 98.0 (80-100) fL MCH 30.2 (25-34) pg MCHC 30.8 L (32-36) g/dL RDW Std Deviation 65.2 H (36.4-46.3) fL RDW Coeff of Erin 18.2 H (11.5-14.5) % Plt Count 374 (130-400) K/uL MPV 8.6 (7.4-10.4) fL Immature Gran % (Auto) 0.6 % Neut % (Auto) 68.5 % Lymph % (Auto) 16.0 % Lawrence % (Auto) 13.0 % Eos % (Auto) 1.7 % Baso % (Auto) 0.2 % Neut # (Auto) 3.59 (1.4-6.5) K/uL Lymph # (Auto) 0.84 L (1.2-3.4) K/uL Lawrence # (Auto) 0.68 H (0.11-0.59) K/uL Eos # (Auto) 0.09 (0-0.5) K/uL Baso # (Auto) 0.01 (0-0.2) K/uL Immature Gran # (Auto) 0.03 H (0.00-0.02) K/uL Hypochromasia Present POC Sodium (135-144) mmol/L Sodium (136-145) mmol/L POC Potassium (3.3-5.0) mmol/L Potassium (3.5-5.1) mmol/L POC Chloride (101-112) mmol/L Chloride (98-107) mmol/L Carbon Dioxide (21-32) mmol/L POC Total CO2 (24-31) mmol/L Anion Gap (3-11) POC Anion Gap (16-25) mmol/L POC BUN (7-18) mg/dl BUN (7-18) mg/dl Creatinine (0.6-1.2) mg/dl POC Creatinine (0.6-1.3) mg/dl Est Cr Clr Drug Dosing ml/min Est GFR ( Amer) ml/min Est GFR (Non-Af Amer) ml/min BUN/Creatinine Ratio (10-20) Glucose (70-99) mg/dl POC Glucose (70-99) mg/dl POC Glucose (other) (70-99) mg/dl Calcium (8.5-10.1) mg/dl POC Ioniz Calcium Felix (1.12-1.32) mmol/l Total Bilirubin (0.2-1) mg/dl AST (15-37) U/L ALT (12-78) U/L Alkaline Phosphatase (45-117) U/L Total Protein (6.4-8.2) gm/dl Albumin (3.4-5.0) gm/dl Globulin (2.5-4.0) gm/dl Albumin/Globulin Ratio (0.9-2) Lipase (73-393) U/L Urine Color Urine Appearance (Clear) Urine pH (4.5-7.5) Ur Specific [place] (1.000-1.030) Urine Protein (Negative) Urine Glucose (UA) (Negative) Urine Ketones (Negative) Urine Blood (Negative) Urine Nitrite (Negative) Urine Bilirubin (Negative) Urine Urobilinogen (Negative) Ur Leukocyte Esterase (Negative) Urine WBC (Auto) (0-5) /hpf Urine RBC (Auto) (0-4) /hpf U Hyaline Cast (Auto) (0-5) /lpf U Epithel Cells (Auto) (0-5) /lpf Urine Bacteria (Auto) (Negative) Granular Casts (0) /lpf Urine Yeast (None Prsent) COVID-19 Eval Order Covid19 at [facility] SARS-CoV-2 (PCR) NEGATIVE (Negative) Blood Type Antibody Screen Crossmatch 07/30/20 07/30/20 Range/Units 14:39 15:30 WBC (4.8-10.8) K/uL RBC (4.2-5.4) M/uL Hgb (12.0-16.0) g/dL POC Hgb (12.0-16.0) g/dl Hct (37-47) % POC Hct (37-47) % MCV (80-100) fL MCH (25-34) pg MCHC (32-36) g/dL RDW Std Deviation (36.4-46.3) fL RDW Coeff of Erin (11.5-14.5) % Plt Count (130-400) K/uL MPV (7.4-10.4) fL Immature Gran % (Auto) % Neut % (Auto) % Lymph % (Auto) % Lawrence % (Auto) % Eos % (Auto) % Baso % (Auto) % Neut # (Auto) (1.4-6.5) K/uL Lymph # (Auto) (1.2-3.4) K/uL Lawrence # (Auto) (0.11-0.59) K/uL Eos # (Auto) (0-0.5) K/uL Baso # (Auto) (0-0.2) K/uL Immature Gran # (Auto) (0.00-0.02) K/uL Hypochromasia POC Sodium (135-144) mmol/L Sodium (136-145) mmol/L POC Potassium (3.3-5.0) mmol/L Potassium (3.5-5.1) mmol/L POC Chloride (101-112) mmol/L Chloride (98-107) mmol/L Carbon Dioxide (21-32) mmol/L POC Total CO2 (24-31) mmol/L Anion Gap (3-11) POC Anion Gap (16-25) mmol/L POC BUN (7-18) mg/dl BUN (7-18) mg/dl Creatinine (0.6-1.2) mg/dl POC Creatinine (0.6-1.3) mg/dl Est Cr Clr Drug Dosing ml/min Est GFR ( Amer) ml/min Est GFR (Non-Af Amer) ml/min BUN/Creatinine Ratio (10-20) Glucose (70-99) mg/dl POC Glucose 80 (70-99) mg/dl POC Glucose (other) (70-99) mg/dl Calcium (8.5-10.1) mg/dl POC Ioniz Calcium Felix (1.12-1.32) mmol/l Total Bilirubin (0.2-1) mg/dl AST (15-37) U/L ALT (12-78) U/L Alkaline Phosphatase (45-117) U/L Total Protein (6.4-8.2) gm/dl Albumin (3.4-5.0) gm/dl Globulin (2.5-4.0) gm/dl Albumin/Globulin Ratio (0.9-2) Lipase (73-393) U/L Urine Color Yellow Urine Appearance Turbid A (Clear) Urine pH 5.0 (4.5-7.5) Ur Specific [place] 1.017 (1.000-1.030) Urine Protein 1+ H (Negative) Urine Glucose (UA) Negative (Negative) Urine Ketones Negative (Negative) Urine Blood 3+ H (Negative) Urine Nitrite Negative (Negative) Urine Bilirubin Negative (Negative) Urine Urobilinogen Negative (Negative) Ur Leukocyte Esterase Negative (Negative) Urine WBC (Auto) 5-10 H (0-5) /hpf Urine RBC (Auto) >30 H (0-4) /hpf U Hyaline Cast (Auto) 1-5 (0-5) /lpf U Epithel Cells (Auto) 20-30 H (0-5) /lpf Urine Bacteria (Auto) Negative (Negative) Granular Casts 1-5 H (0) /lpf Urine Yeast Present A (None Prsent) COVID-19 Eval Order SARS-CoV-2 (PCR) (Negative) Blood Type Antibody Screen Crossmatch Imaging Data Radiologist's Impression: Chest X-Ray 07/30/20 12:44 XR chest 1V portable HISTORY: 80 years-old Female sob acute shortness of breath COMPARISON: Chest radiograph 07/03/2020 TECHNIQUE: Portable AP view of the chest FINDINGS: Cardiomegaly. Calcified plaque the thoracic aorta. Pulmonary vascular congestion with new interstitial reticular opacities, right greater than left within a mid and lower lung zone prominent distribution. A right-sided PICC is present with distal tip in the expected location of the inferior SVC. The patient is slightly rotated. No pneumothorax. Trace pleural effusions with mild bibasilar opacities suggestive of atelectasis. Degenerative changes of the shoulders and spine. IMPRESSION: 1. Cardiomegaly with pulmonary vascular congestion and right greater than left interstitial opacities suggestive of asymmetric pulmonary edema. An interstitial pneumonitis could appear similarly. 2. Trace pleural effusions. 3. Right-sided PICC distal tip terminates in the expected location of the mid SVC. ACT 112: Negative or not required by law. The above report was generated using voice recognition software. It may contain grammatical, syntax or spelling errors. Electronically signed by: Uzair Martin M.D. 07/30/2020 1:07 PM Discharge Plan Visit Data Chief Complaint: Abnormal Labs/Diagnostic Testing Stated Complaint: ELEVATED LABS ED Provider: Maurice Ramey Discharge Problem: Breath shortness, CHF (congestive heart failure), Symptomatic anemia, CKD (chronic kidney disease) Forms Stand Alone Forms: [email or web address] Prescriptions Prescriptions: No Action ipratropium bromide 0.03 % spray,non-aerosol 2 sprays INTNAS TID PRN (Reason: allergy symptoms) Qty: 30 RF: 2 potassium chloride [Klor-Con 10] 10 mEq tablet extended release 10 meq PO QAM Qty: 90 RF: 3 atorvastatin [Lipitor] 40 mg tablet 40 mg PO HS Qty: 90 RF: 3 (DME) lancets [OneTouch Delica Plus Lancet] 30 gauge misc See Rx Instructions .ROUTE .MEDSUPPLY Qty: 100 RF: 3 meloxicam 7.5 mg tablet 7.5 mg PO BID PRN (Reason: Pain) Qty: 60 RF: 11 docusate sodium 100 mg capsule 200 mg PO DAILY Qty: 60 RF: 11 (DME) insulin syringe-needle U-100 [BD Insulin Syringe Ultra-Fine] 0.3 mL 31 gauge x 5/16" syringe See Rx Instructions .ROUTE .MEDSUPPLY Qty: 100 RF: 3 (DME) FreeStyle Vanessa 14 Day Sensor Kit See Rx Instructions .ROUTE .MEDSUPPLY Qty: 1 RF: 0 (DME) FreeStyle Vanessa 14 Day [place] Misc See Rx Instructions .ROUTE .MEDSUPPLY Qty: 1 RF: 0 nitroglycerin 0.4 mg tablet, sublingual 0.4 mg sublingual Q5M PRN (Reason: chest pain) Qty: 25 RF: 3 aspirin [Adult Aspirin Regimen] 81 mg tablet,delayed release (DR/EC) 81 mg PO DAILY RF: 0 (DME) Lift Chair Misc See Rx Instructions .ROUTE .MEDSUPPLY Qty: 1 RF: 0 albuterol sulfate 2.5 mg /3 mL (0.083 %) solution for nebulization 2.5 mg INH QID PRN (Reason: SOB) RF: 0 amiodarone 200 mg Tablet 200 mg PO BID RF: 0 enoxaparin 300 mg/3 mL Solution 130 mg SUBCUT Q12 RF: 0 furosemide 40 mg tablet 40 mg PO QAM RF: 0 cefazolin 1 gram recon soln 1 g IV Q12H RF: 0 gabapentin [Neurontin] 600 mg tablet 1,200 mg PO BID RF: 0 Lantus U-100 Insulin 100 unit/mL solution 25 unit subcut BID RF: 0 citalopram [Celexa] 40 mg tablet 40 mg PO QPM RF: 0 metoprolol succinate 50 mg tablet extended release 24 hr 50 mg PO DAILY RF: 0 pantoprazole [Protonix] 40 mg tablet,delayed release (DR/EC) 40 mg PO QAM RF: 0 quetiapine [Seroquel] 25 mg Tablet 25 mg PO HS RF: 0 Discharge Problem: CHF (congestive heart failure) Qualifiers: Heart failure type: unspecified Heart failure chronicity: unspecified Qualified Code(s): I50.9 - Heart failure, unspecified CKD (chronic kidney disease) Qualifiers: Chronic kidney disease stage: unspecified stage Qualified Code(s): N18.9 - Chronic kidney disease, unspecified
[2020-07-30] MEDS ORDERED: SODIUM CHLORIDE 0.9% 250 ML IV PRN ×2 (13:33→19:17)
[2020-07-30 13:44] LABS: Hematocrit (blood only) 19.8 % (37-47); Hemoglobin 6.1 g/dL (12.0-16.0); Mean Corpuscular Hemoglobin 30.2 pg (25-34); Mean Corpuscular Hgb Conc 30.8 g/dL (32-36); Mean Platelet Volume 8.6 fL (7.4-10.4); Platelet Count 374 K/uL (130-400); RDW Coefficient of Variation 18.2 % (11.5-14.5); RDW Standard Deviation 65.2 fL (36.4-46.3); Red Blood Count 2.02 M/uL (4.2-5.4); White Blood Count 5.24 K/uL (4.8-10.8)
[2020-07-30 13:59] LABS: Basophils # (auto) 0.01 K/uL (0-0.2); Basophils % (auto) 0.2 %; Eosinophils # (auto) 0.09 K/uL (0-0.5); Eosinophils % (auto) 1.7 %; Hypochromasia Present; Immature Granulocytes # (auto) 0.03 K/uL (0.00-0.02); Immature Granulocytes % (auto) 0.6 %; Lymphocytes # (auto) 0.84 K/uL (1.2-3.4); Monocytes # (auto) 0.68 K/uL (0.11-0.59); Neutrophils # (auto) 3.59 K/uL (1.4-6.5); Neutrophils % (auto) 68.5 %
[2020-07-30 14:11] LABS: Alanine Aminotransferase < 6 U/L (12-78); Albumin Globulin Ratio 0.3 (0.9-2); Albumin Level 1.3 gm/dl (3.4-5.0); Alkaline Phosphatase 81 U/L (45-117); Aspartate Aminotransferase 17 U/L (15-37); BUN Creatinine Ratio 23.7 (10-20); Bilirubin,Total 0.3 mg/dl (0.2-1); Blood Urea Nitrogen 54 mg/dl (7-18); Calcium 7.1 mg/dl (8.5-10.1); Carbon Dioxide 24 mmol/L (21-32); Chloride 108 mmol/L (98-107); Creatinine Clr Calc Pharmacy 26.5 ml/min; Est GFR (African American) 22.8 ml/min; Est GFR (Non-African American) 19.7 ml/min; Globulin 4.8 gm/dl (2.5-4.0); Glucose 48 mg/dl (70-99); Lipase 35 U/L (73-393); Potassium 5.1 mmol/L (3.5-5.1); Sodium 138 mmol/L (136-145); Total Protein 6.1 gm/dl (6.4-8.2)
--- NOTE | 2020-07-30 15:53 | History & Physical Report ---
Date of Service July 30, 2020 Assessment & Plan (1) Acute blood loss anemia: Patient is admitted with anemia to PCU Patient had hemoglobin of 6.1 will transfuse 2 PRBC stool guiac negative NPO for the meantime. If no signs of GI loss and CT scan is positive for hematoma, then will resume diet. Patient is hemodynamically stable, will hold ICU admission for now. It appears blood loss is somewhat slow as she had a hemoglobin of 6.9 on 07/26. Code- DNR/DNI per discussion with patient (2) CKD (chronic kidney disease): will monitor Creatine (3) Hyperlipidemia: resume home meds (4) Asthma: controlled rarely requires rescue inhaler Chronic. No wheezing present on exam -Continue Fluticasone/Vilanterol (5) Anxiety: Chronic -Continue Citalopram (6) Diabetes mellitus, type 2: will monitor Blood sugar consult glycemic control (7) Hypertension: Blood pressure stable -hold metoprolol -Continue to monitor (8) MSSA bacteremia: will continue cefazolin 6 week treatment ends on 08/16 (9) Atrial fibrillation: Due to anemia will hold anticoagulation continue amiodarone History of Present Illness Chief Complaint: anemia Primary Care Provider: [facility] 80 yo female who comes into the hospital for acute blood loss anemia. She was recently admitted to [facility] for MSSA bacteremia and abscess of lumbar spine. Patient reports feeling well and was only brought in due to low hemoglobin. Patient also had a hemoglobin of 6.9 on 07/26. Allergies Allergy/AdvReac Type Severity Reaction Status Date / Time bee venom protein (honey bee) Allergy Severe SWELLING Verified 07/30/20 14:27 SOB iodine Allergy Severe RASH; Verified 07/30/20 14:27 SHORTNESS OF BREATH codeine Allergy Intermediate SWELLING Verified 07/30/20 14:27 metformin Allergy Intermediate Diarrhea Verified 07/30/20 14:27 Penicillins Allergy Intermediate RASH/HIVES Verified 07/30/20 14:27 chocolate flavor Allergy Mild Diarrhea Verified 07/30/20 14:27 procaine Allergy Mild NOVOCAINE-R Verified 07/30/20 14:27 AKILAH Cephalosporins Allergy Unknown UNKNOWN Verified 07/30/20 14:27 clarithromycin Allergy Unknown Unknown Verified 07/30/20 14:27 shellfish derived Allergy Unknown Unknown Verified 07/30/20 14:27 Home Medications Medication Instructions Recorded Confirmed Type ipratropium bromide 21 mcg (0.03 2 sprays INTNAS TID PRN #30 ml 10/28/18 07/30/20 Rx %) nasal spray Lift Chair #1 ea 03/09/19 05/29/20 Rx aspirin 81 mg tablet,delayed 81 mg PO DAILY 05/02/19 07/30/20 History release potassium chloride 10 mEq 10 meq PO QAM #90 tab 08/31/19 07/30/20 Rx tablet,extended release atorvastatin 40 mg tablet 40 mg PO HS #90 tab 10/12/19 07/30/20 Rx lancets 30 gauge #100 ea 11/15/19 05/29/20 Rx meloxicam 7.5 mg tablet 7.5 mg PO BID PRN #60 tab 12/19/19 07/30/20 Rx docusate sodium 100 mg capsule 200 mg PO DAILY #60 cap 12/27/19 07/30/20 Rx insulin syringe-needle U-100 0.3 #100 ea 01/29/20 05/29/20 Rx mL 31 gauge x 5/16" flash glucose sensor #1 ea 03/14/20 05/29/20 Rx flash glucose scanning reader #1 ea 03/26/20 05/29/20 Rx nitroglycerin 0.4 mg sublingual 0.4 mg SUBLINGUAL Q5M PRN #25 tab 05/16/20 07/30/20 Rx tablet albuterol sulfate 2.5 mg INH QID PRN 06/23/20 07/30/20 History amiodarone 200 mg PO BID 07/30/20 07/30/20 History cefazolin 1 g IV Q12H 07/30/20 07/30/20 History citalopram [Celexa] 40 mg PO QPM 07/30/20 07/30/20 History enoxaparin 130 mg SUBCUT Q12 07/30/20 07/30/20 History furosemide 40 mg PO QAM 07/30/20 07/30/20 History gabapentin [Neurontin] 1,200 mg PO BID 07/30/20 07/30/20 History insulin glargine [Lantus U-100 25 unit SUBCUT BID 07/30/20 07/30/20 History Insulin] metoprolol succinate 50 mg PO DAILY 07/30/20 07/30/20 History pantoprazole [Protonix] 40 mg PO QAM 07/30/20 07/30/20 History quetiapine [Seroquel] 25 mg PO HS 07/30/20 07/30/20 History Past Med/Surg History Medical History (Updated 07/31/20 @ 01:31 by Bret Baker) Anxiety Asthma RARELY NEEDS PRN INH Atrial fibrillation Paroxysmal, not on anticoagulation. Per cardio 12/25/15, "since she has not had a paroxysmal for many years, no therapy will be initiated today. Given her elevated CHADSVASC score, though, would recommend anticoagulation therapy if she were to develop any recurrent episodes of A. fib in the future." Chronic back pain Chronic chest pain Has been evaluated by cardio, ruled to be non-cardiac in origin. 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 Non-obstructive CAD. "Non-cardiac chest pain." History of carpal tunnel release BL History of cataract surgery History of cholecystectomy History of dilatation and curettage History of hysterectomy History of partial gastrectomy History of right mastectomy NO BP/IV RUE History of tonsillectomy History of tooth extraction History of total knee replacement BL History of total shoulder replacement RT Family History Sister Family history of diabetes mellitus Breast cancer Daughter Family history of reaction to anesthesia SLOW TO WAKE UP Grandfather (Maternal) Myocardial infarction Denies family history of Ovarian cancer Prostate cancer Colorectal cancer Social History Smoking Status: Never smoker Second Hand Exposure: No; Do You Dip or Chew Tobacco: No; Hx Alcohol Use: No Hx Substance Use: No Preferred Language: Korean Communication Ability: Effective Visual Impairment: No Limitations Hearing Ability: Normal School Based Therapist Required: No Beliefs That Will Affect Care: None marital status: Current Living Situation: Spouse and Rehab Current Living Situation Comment: Recently at rehab facility. 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 [employer] Other Information That Helps Us Care for You: No Feels Safe at Home: Yes Safety Concerns: Feels Safe At This Time Childhood Exposure to Second-Hand Smoke: No Dental Care, Regularly: No Physical Activity Frequency: Does not Exercise Seatbelt Use: always Sunscreen Use: No Assistive Devices: Denture - Upper, Denture - Lower, Mechanical Lift, Oxygen - Continuous and Wheelchair Review of Systems Review of Systems: All systems reviewed & are unremarkable except as noted in HPI & below Physical Exam Physical Exam: General: patient resting comfortably, NAD, non-toxic in appearance, AA&O x 4 Skin: warm, dry, intact, HEENT: NC/AT, PERRL, EOMI, anicteric sclera, conjunctiva without injection, external ear normal to inspection and nontender, nares patent, dry mucus membranes, dentition intact, no oropharyngeal lesions, neck supple, trachea midline, no LAD, no thyromegaly, no JVD Heart: +S1/S2, regular, no m/r/g Lungs: equal air entry bilaterally, no rales/rhonchi/wheezes Abd: +BS, Left lower quandrant: skin folds appear hard (feels like hematoma), LLQ tender to palpation, no masses/organomegaly/ascites Ext: warm, 2+ pulses in UE/LE bilaterally, no clubbing/cyanosis or edema Neuro: nonfocal, patient AA&O x 4, speech intact, no facial droop, moving all extremities on command with equal strength 5/5 Results & Data Results & Data ([facility]) Vital Signs (Past 12 Hours) Vital Signs Temp Pulse Resp BP Pulse Ox 07/30/20 14:00 81 27 H 120/60 100 07/30/20 13:30 79 36 H 127/73 99 07/30/20 13:00 80 38 H 115/74 100 07/30/20 12:40 82 28 H 116/70 100 07/30/20 11:40 36.6 C 82 22 146/121 H 99 PG Care Time/CCT Total # of Minutes Spent Total Time Spent with Patient: Total time spent is greater than 50% in coordination of care (as documented) at patient's floor/unit and/or counseling patient: Coding Level of Care Code 19693 Initial Inpt Care Lvl 3 Diagnoses Acute blood loss anemia D62 CKD (chronic kidney disease) N18.9 Chronic kidney disease stage: unspecified stage Hyperlipidemia E78.5 Asthma J45.909 Anxiety F41.9 Diabetes mellitus, type 2 E11.9 Hypertension I10 MSSA bacteremia R78.81; B95.61 Atrial fibrillation I48.91 Time Spent (min) 55 (1) CKD (chronic kidney disease) Chronic kidney disease stage: unspecified stage Qualified Code(s): N18.9 - Chronic kidney disease, unspecified
[2020-07-30] MEDS ORDERED: NITROGLYCERIN SL 0.4 MG/TAB TAB SL PRN (16:00)
[2020-07-30 16:18] LABS: Appearance Urine Turbid (Clear); Bacteria Urine Automated Negative (Negative); Bilirubin Urine Negative (Negative); Blood Urine 3+ (Negative); Color Urine Yellow; Epithelial Cell Urine Auto 20-30 /lpf (0-5); Glucose Urine UA Negative (Negative); Ketones Urine Negative (Negative); Leukocyte Esterase Urine Negative (Negative); Nitrite Urine Negative (Negative); Protein Urine 1+ (Negative); RBC Urine Automated >30 /hpf (0-4); Specific Gravity Urine 1.017 (1.000-1.030); Urobilinogen Urine Negative (Negative)
[2020-07-30] MEDS ORDERED: Nursing to Pharmacy Communication SCH (19:15)
[2020-07-30] MEDS ORDERED: FUROSEMIDE 40 MG in SYRINGE 0 ML IV ONE (20:00)
[2020-07-30] MEDS: ceFAZolin 1000MG 1,000 MG/7.5 ML SYR IV SCH (20:28)
[2020-07-30] MEDS: AMIODARONE 200 MG TAB PO SCH (20:40)
[2020-07-30] MEDS: QUEtiapine FUMARATE 25 MG TABLET PO SCH (20:40)
[2020-07-30] MEDS: CITALOPRAM 40 MG TAB PO SCH (20:40)
[2020-07-30] MEDS: ATORVASTATIN 40 MG TAB PO SCH (20:40)
[2020-07-30] MEDS: GABAPENTIN 600 MG TAB PO SCH (20:40)
[2020-07-30] MEDS ORDERED: INSULIN GLARGINE SOLOSTAR 100 UNITS/ML 3 ML PEN SC SCH (21:00)
[2020-07-30] MEDS ORDERED: ACETAMINOPHEN 325 MG TAB PO PRN (22:26)
[2020-07-31 03:04] LABS: Hematocrit (blood only) 25.7 % (37-47); Hemoglobin 8.1 g/dL (12.0-16.0); Mean Corpuscular Hemoglobin 29.5 pg (25-34); Mean Corpuscular Hgb Conc 31.5 g/dL (32-36); Mean Corpuscular Volume 93.5 fL (80-100); Mean Platelet Volume 8.6 fL (7.4-10.4); Platelet Count 414 K/uL (130-400); RDW Coefficient of Variation 19.8 % (11.5-14.5); RDW Standard Deviation 67.3 fL (36.4-46.3); Red Blood Count 2.75 M/uL (4.2-5.4); White Blood Count 6.52 K/uL (4.8-10.8)
[2020-07-31 03:21] LABS: Alanine Aminotransferase < 6 U/L (12-78); Albumin Level 1.3 gm/dl (3.4-5.0); Aspartate Aminotransferase 21 U/L (15-37); Bilirubin Direct 0.2 mg/dl (0-0.2); Blood Urea Nitrogen 50 mg/dl (7-18); Calcium 6.3 mg/dl (8.5-10.1); Carbon Dioxide 25 mmol/L (21-32); Chloride 110 mmol/L (98-107); Creatinine Clr Calc Pharmacy 27.8 ml/min; Est GFR (Non-African American) 20.7 ml/min; Glucose 82 mg/dl (70-99); Sodium 140 mmol/L (136-145)
[2020-07-31 03:23] LABS: Alkaline Phosphatase 87 U/L (45-117); Bilirubin,Total 0.5 mg/dl (0.2-1); Total Protein 6.2 gm/dl (6.4-8.2)
[2020-07-31 03:27] LABS: Basophils # (auto) 0.01 K/uL (0-0.2); Basophils % (auto) 0.2 %; Eosinophils # (auto) 0.09 K/uL (0-0.5); Eosinophils % (auto) 1.4 %; Immature Granulocytes # (auto) 0.07 K/uL (0.00-0.02); Immature Granulocytes % (auto) 1.1 %; Lymphocytes # (auto) 1.05 K/uL (1.2-3.4); Lymphocytes % (auto) 16.1 %; Monocytes # (auto) 0.73 K/uL (0.11-0.59); Monocytes % (auto) 11.2 %; Neutrophils # (auto) 4.57 K/uL (1.4-6.5); RBC Morphology Unremarkable
[2020-07-31] MEDS ORDERED: PHARMACY GLYCEMIC MGMT CONSULT PRN (05:43)
[2020-07-31] MEDS ORDERED: CARBOHYDRATES FOR HYPOGLYCEMIA PO PRN (06:00)
[2020-07-31] MEDS ORDERED: GLUCOSE 10 TABS/TUBE PO PRN (06:00)
[2020-07-31] MEDS ORDERED: GLUCOSE 40% GEL 15 GM TUBE PO PRN (06:00)
[2020-07-31] MEDS ORDERED: DEXTROSE 50% 50 ML SYRINGE IV PRN (06:00)
[2020-07-31] MEDS ORDERED: GLUCAGON FOR INJ 1 MG VIAL IM PRN (06:00)
[2020-07-31] MEDS: INSULIN ASPART 100 UNITS/ML 3 ML PEN SC SCH ×4 (06:18→21:00)
--- NOTE | 2020-07-31 07:26 | XRay Report ---
XR chest 1V portable CLINICAL HISTORY: Shortness of breath COMPARISON STUDY: 07/30/2020 FINDINGS: The heart is enlarged. There is aortic tortuosity/ectasia. There is radiographic evidence o f mild pulmonary vascular congestion/fluid overload. Small pleural effusions are suspected. There is no lobar consolidation. There is a right-sided PICC catheter. The tip projects over the superior vena cava.[ IMPRESSION: Cardiomegaly and radiographic evidence of mild congestive failure/fluid overload with sma ll bilateral pleural effusions. ACT 112: Negative or not required by law. Electronically signed by: Fletcher Fernando M.D. 07/31/2020 7:25 AM
--- NOTE | 2020-07-31 07:38 | Pharmacy Report ---
Pharmacy Glycemic Short Note 2 - Date of Service July 31, 2020 - Glycemic Short BSG Results (Last 24 hours): 07/30/20 07/30/20 07/30/20 12:14 13:28 14:39 Glucose 48 L* POC Glucose 80 POC Glucose (other) 58 L* 07/30/20 07/30/20 07/31/20 18:08 20:23 02:36 Glucose 82 POC Glucose 71 81 POC Glucose (other) 07/31/20 06:13 Glucose POC Glucose 89 POC Glucose (other) OUTPATIENT ANTIDIABETIC REGIMEN: * Lantus 25 units SC BID * HbA1c: 7% (06/24/20) ASSESSMENT: * AB is an 80 year old female who presents from [facility] with shortness of breath, patient subsequently found to be anemic with hemoglobin of 6.1 * Pharmacy consulted for glycemic management due to hypoglycemia (BSG of 48 mg/dL on admission) * Patient received 25 units of Lantus prior to admission * Patient is currently NPO * Patient was recently hospitalized in May-June of this year with MSSA bacteremia secondary to lumbar spinal abscess * Currently on six weeks of cefazolin to end 08/16/20 PLAN FOR INPATIENT GLYCEMIC CONTROL: * Basal insulin * Lantus 13 units x 1 with lunch * Lantus scale HS to provide 0-13 units (see EHR for details) * Bolus insulin * NovoLog per scale ACHS or Q6hrs while NPO * Goal Range: Low 110 mg/dL - High 140 mg/dL * Correction Factor: 25 mg/dL/unit * Nutritional / Prandial insulin per carb ratio of 1 unit per 8 grams CHO co nsumed PLAN FOR DISCHARGE: * Reasonable HbA1c goal for this patient based on age and comorbidities would be less than 8% * Given hypoglycemia, patient will likely require insulin dose reduction at discharge
--- NOTE | 2020-07-31 08:19 | Electrocardiogram Report ---
Test Reason : Blood Pressure : / mmHG Vent. Rate : 080 BPM Atrial Rate : 080 BPM P-R Int : 166 ms QRS Dur : 102 ms QT Int : 392 ms P-R-T Axes : 064 -23 057 degrees QTc Int : 452 ms Normal sinus rhythm Normal ECG When compared with ECG of 03-JUL-2020 05:16, Sinus rhythm has replaced Atrial fibrillation Incomplete left bundle block is no longer Present Nonspecific T wave abnormality no longer evident in Lateral leads Confirmed by Shane Stock ([id number]) on 07/31/2020 8:19:38 AM Referred By: [facility] Confirmed By:Shane Stock
[2020-07-31] MEDS: AMIODARONE 200 MG TAB PO SCH ×2 (08:28→21:02)
[2020-07-31] MEDS: ceFAZolin 1000MG 1,000 MG/7.5 ML SYR IV SCH ×2 (08:28→21:01)
[2020-07-31] MEDS: PANTOprazole 40 MG TAB PO SCH (08:28)
[2020-07-31] MEDS: GABAPENTIN 600 MG TAB PO SCH ×2 (08:28→21:02)
[2020-07-31] MEDS ORDERED: POTASSIUM CHLORIDE 10 MEQ TABCR PO SCH (09:00)
--- NOTE | 2020-07-31 09:25 | CT Scan Report ---
CT SCAN OF THE ABDOMEN AND PELVIS WITHOUT CONTRAST CLINICAL HISTORY: anemia COMPARISON STUDY: 07/05/2020 TECHNIQUE: CT scan of the abdomen and pelvis was performed from the lung bases to the proximal femurs . Images are reviewed in the axial, sagittal, and coronal planes. IV contrast was not administered fo r this examination. A dose lowering technique was utilized adhering to the principles of ALARA. CT DOSE: 1895.39 mGy.cm FINDINGS: Lower chest: There are small bilateral pleural effusions right greater than left with associated basi lar parenchymal opacities statistically atelectatic Liver: The unenhanced liver is normal in size, contour, and attenuation. There is no intrahepatic giovanna iary ductal dilatation. Gallbladder: Surgically absent Spleen: Normal in size and attenuation. Pancreas: Unremarkable. Adrenal glands: Unremarkable. Kidneys: There are bilateral subcentimeter nonobstructing renal calculi. No ureteral or bladder calcu li are visualized. Bowel: There are no transition zones indicate bowel obstruction. There are no findings to indicate ac frederick appendicitis. There are scattered colonic stool. There is no evidence of acute diverticulitis. Peritoneum: There is no intraperitoneal free air or abdominal ascites. Vasculature: The abdominal aorta is normal in course and caliber. Adenopathy: Iliac chain lymph nodes are the upper limits of normal in size. Pelvic viscera: The uterus is surgically absent. There is an indwelling Hess catheter. Skeletal structures: There are postsurgical changes present within the spine. There is subcutaneous n odules in the abdominal wall, likely secondary to prior injection sites. IMPRESSION: 1. Examination limited due to morbid obesity, motion artifact, and the lack of intravenous and oral c ontrast 2. Small bilateral pleural effusions with basilar parenchymal opacities likely atelectatic 3. No evidence of bowel obstruction. No evidence of free air 4. Bilateral nephrolithiasis. No ureteral calculi identified 5. No evidence of acute appendicitis. No evidence of acute diverticulitis. ACT 112: Negative or not required by law. Electronically signed by: Fletcher Fernando M.D. 07/31/2020 9:24 AM
[2020-07-31 10:52] LABS: Basophils # (auto) 0.01 K/uL (0-0.2); Basophils % (auto) 0.2 %; Eosinophils # (auto) 0.06 K/uL (0-0.5); Eosinophils % (auto) 0.9 %; Hematocrit (blood only) 26.8 % (37-47); Hemoglobin 8.3 g/dL (12.0-16.0); Immature Granulocytes # (auto) 0.06 K/uL (0.00-0.02); Immature Granulocytes % (auto) 0.9 %; Lymphocytes # (auto) 0.86 K/uL (1.2-3.4); Mean Corpuscular Hemoglobin 29.5 pg (25-34); Mean Corpuscular Volume 95.4 fL (80-100); Mean Platelet Volume 8.7 fL (7.4-10.4); Monocytes # (auto) 0.83 K/uL (0.11-0.59); Monocytes % (auto) 12.5 %; Neutrophils # (auto) 4.81 K/uL (1.4-6.5); Neutrophils % (auto) 72.5 %; Platelet Count 419 K/uL (130-400); RDW Coefficient of Variation 19.9 % (11.5-14.5); RDW Standard Deviation 69.3 fL (36.4-46.3); Red Blood Count 2.81 M/uL (4.2-5.4); White Blood Count 6.63 K/uL (4.8-10.8)
[2020-07-31 11:09] LABS: BUN Creatinine Ratio 23.3 (10-20); Calcium 7.1 mg/dl (8.5-10.1); Creatinine Clr Calc Pharmacy 28.5 ml/min; Est GFR (African American) 24.7 ml/min; Est GFR (Non-African American) 21.3 ml/min; Potassium 5.1 mmol/L (3.5-5.1)
--- NOTE | 2020-07-31 11:10 | Hospitalist Progress Note ---
Date of Service July 31, 2020 Assessment & Plan (1) Acute blood loss anemia: Patient presents with increasing shortness of breath and was found to have a hemoglobin of 6.1 down from 8 previously She has a history of acute blood loss anemia from admission several weeks ago after having large left gluteal hematoma. She has been receiving therapeutic dose Lovenox injections for her paroxysmal atrial fibrillation since discharge from [facility] [place] [facility] 2 weeks ago She has pain at the hematoma site and due to her morbid obesity, it is difficult to tell if this is enlarged from previous but this is most likely source of continued blood loss CT abdomen/pelvis without evidence of bleeding Stool was guaiac negative reportedly She is hemodynamically stable Was transfused 2 units PRBCs upon admission and hemoglobin was up to 8.1 and then dropped down again on repeat CBC to 7.7 -Transfuse 1 more unit PRBCs on 07/31 -Giving IV Lasix with albumin as below for anasarca -Discontinued Lovenox and would not recommend restarting this due to to severe bleeding episodes in the last month -Hold home aspirin -Follow calcium levels and replace as needed-corrected serum calcium today is normal but will check ionized calcium in the morning -Follow CBC serially (2) Anasarca: With massive volume overload and anasarca on examination secondary to acute on chronic diastolic CHF Her weight is up 19 kg in the last 4 weeks She has severe hypoalbuminemia with an albumin of 1.3 and acute kidney injury as below -Begin IV albumin and IV Lasix twice daily -Follow daily weights, I's and O's, low-sodium diet -Follow renal function with diuresis -Consult dietitian for improved nutritional status recommendations (3) Aspiration into airway: Had an episode of aspiration while eating dinner on the evening of 07/31 which caused tachypnea, upper respiratory gurgling and cough This resolved with coughing Chest x-ray unchanged from previous Is on minced and moist diet Consult speech therapy (4) CHF (congestive heart failure): Acute on chronic diastolic CHF with anasarca as above Likely precipitated by prolonged hospital stay with multiple blood transfusions and IV fluids given Diuresing (5) Hematoma: Left gluteus and left lower abdomen Exacerbated by therapeutic Lovenox injections Was present on previous hospitalization as well Transfuse as above (6) Hypoalbuminemia: Severe, albumin 1.3 Dietary consult Giving IV albumin (7) CKD (chronic kidney disease): Acute kidney failure on CKD stage III Creatinine has been down to 1.2 on recent labs and is now up to 2.2 and stable on serial BMPs today Potassium is borderline high-discontinue home oral potassium supplement She has making plenty of urine Continue diuresis as above with IV Lasix and albumin Follow BMP in the morning -Avoid nephrotoxins-was on NSAIDs on home medication list-discontinue these -renally dose meds when appropriate (8) Hyperlipidemia: Continue atorvastatin (9) Diabetes mellitus, type 2: Hemoglobin A1c well controlled at 7.0% in 05/2020 consult glycemic control placed at time of admission Continue NovoLog and Lantus Advance diet to diabetic diet (10) Hypertension: Blood pressure stable Metoprolol was held upon admission for bleeding -will restart Toprol-XL in the morning with hold parameters given history of significant paroxysmal atrial fibrillation requiring DC cardioversion -Continue to monitor (11) MSSA bacteremia: With a history of such from 1 month ago as well as lumbar spinal abscess required interventional radiology for drainage -Will continue cefazolin through 6 week treatment ends on 08/[address] line in place in the right upper extremity (12) Atrial fibrillation: With a history of rapid atrial fibrillation during hospitalization last month with severe illness including Covid-19 pneumonia, acute blood loss anemia, and MSSA bacteremia lumbar spinal abscess At that time of that hospitalization, she required DC cardioversion for unstable rapid atrial fibrillation Remains in sinus rhythm here continue amiodarone Restarting Toprol-XL in the morning -Continue monitoring on telemetry (13) Asthma: With wheezing here which seems more upper airway related to aspiration -Add back her albuterol rescue inhaler as needed -Continue Fluticasone/Vilanterol (14) Anxiety: Chronic -Continue Citalopram (15) DVT prophylaxis: Holding therapeutic Lovenox for acute blood loss anemia as above Disposition-continued stay on PCU Full code Case discussed with daughter on phone and at the bedside Admission and Anticipated Discharge Date Admission Date: July 30, 2020 Subjective Patient was seen multiple times today. The first time was in the morning and she reported feeling short of breath, swollen all over. She denied any chest pain. She is having pain in the left lower abdomen and buttocks. She has not had any blood in her stool. Telemetry with normal sinus rhythm with rates in the 80s. Patient reaffirms that she would like to be a full code which is what is documented in her records from the group home as well. CODE STATUS was changed here. The second time I saw her was around 5 PM after the nurse informed me that the patient was suspected to have aspirated while eating her dinner. She was having difficulty breathing and sounded like she was gurgling. She was coughing but was able to speak to me in complete sentences. Her pulse ox remained 94-95% on 2 L nasal cannula. Her daughter was at the bedside at this time and we discussed her care. Repeat chest x-ray was obtained which appeared similar to the one from earlier today with evidence of small pleural effusions, atelectasis at the bases, and pulmonary vascular congestion consistent with CHF. Back on her a third time later in the evening and the gurgling sound was gone and she was breathing more easily. Review of Systems Review of Systems: All systems reviewed & are unremarkable except as noted in HPI & below Physical Exam Constitutional: WD/WN, vitals as above + ill appearing and + morbidly obese Eyes: PERRL, conjunctivae normal, anicteric sclerae ENMT: external ear and nose normal, oropharynx normal Neck: trachea midline, no thyromegaly Respiratory: + tachypneic (With some upper airway gurgling and cough) Auscultation: + crackles (At lower lung sampson bilaterally); no rhonchi and no wheezes Cardiovascular: Rate/Rhythm: regular rate and regular rhythm Heart Sounds: no murmur Extremities: + edema (Anasarca in all extremities) Chest (Breasts): Chest: normal inspection of chest Gastrointestinal (Abdomen): normal bowel sounds, soft, nontender, no hepatosplenomegaly Musculoskeletal: Extremities: no cyanosis and no clubbing Skin: no rashes, warm and dry + wound (Left lateral hip with superficial skin tear 3 x 2 cm) Trauma: + hematoma (Left lower abdomen into left gluteus with very large palpable hematoma) Neurologic: moves all extremities and awake; no focal motor deficits Psychiatric: A+Ox3, euthymic affect Genitourinary: + abnormal external appearance (Hess catheter in place draining clear yellow urine) Results & Data Results & Data ([facility]) Vital Signs (Past 12 Hours) Vital Signs Temp Pulse Pulse Resp BP BP Pulse Ox 07/31/20 08:00 36.9 C 63 18 110/62 95 07/31/20 03:24 37.4 C 85 18 130/70 95 07/31/20 01:05 37.5 C 82 28 H 144/75 H 94 07/31/20 00:12 37.4 C 82 24 143/75 H 97 07/30/20 23:12 37.5 C 83 26 H 147/77 H 99 Laboratory Results 07/31/20 07/31/20 07/31/20 Range/Units 20:12 16:16 15:57 WBC (4.8-10.8) K/uL RBC (4.2-5.4) M/uL Hgb (12.0-16.0) g/dL Hct (37-47) % MCV (80-100) fL MCH (25-34) pg MCHC (32-36) g/dL RDW Std Deviation (36.4-46.3) fL RDW Coeff of Erin (11.5-14.5) % Plt Count (130-400) K/uL MPV (7.4-10.4) fL Immature Gran % (Auto) % Neut % (Auto) % Lymph % (Auto) % [place] % (Auto) % Eos % (Auto) % Baso % (Auto) % Neut # (Auto) (1.4-6.5) K/uL Lymph # (Auto) (1.2-3.4) K/uL [place] # (Auto) (0.11-0.59) K/uL Eos # (Auto) (0-0.5) K/uL Baso # (Auto) (0-0.2) K/uL Immature Gran # (Auto) (0.00-0.02) K/uL RBC Morphology Sodium 140 (136-145) mmol/L Potassium 4.9 (3.5-5.1) mmol/L Chloride 109 H (98-107) mmol/L Carbon Dioxide 25 (21-32) mmol/L Anion Gap 6.0 (3-11) BUN 50 H (7-18) mg/dl Creatinine 2.11 H (0.6-1.2) mg/dl Est Cr Clr Drug Dosing 28.6 ml/min Est GFR ( Amer) 24.8 ml/min Est GFR (Non-Af Amer) 21.4 ml/min BUN/Creatinine Ratio 23.8 H (10-20) Glucose 80 (70-99) mg/dl POC Glucose 92 193 H (70-99) mg/dl Calcium 6.9 L (8.5-10.1) mg/dl Total Bilirubin (0.2-1) mg/dl Direct Bilirubin (0-0.2) mg/dl AST (15-37) U/L ALT (12-78) U/L Alkaline Phosphatase (45-117) U/L Total Protein (6.4-8.2) gm/dl Albumin (3.4-5.0) gm/dl Blood Type Antibody Screen Crossmatch 07/31/20 07/31/20 07/31/20 Range/Units 15:57 11:34 10:32 WBC 5.68 (4.8-10.8) K/uL RBC 2.61 L (4.2-5.4) M/uL Hgb 7.7 L (12.0-16.0) g/dL Hct 24.4 L (37-47) % MCV 93.5 (80-100) fL MCH 29.5 (25-34) pg MCHC 31.6 L (32-36) g/dL RDW Std Deviation 68.3 H (36.4-46.3) fL RDW Coeff of Erin 19.9 H (11.5-14.5) % Plt Count 392 (130-400) K/uL MPV 8.7 (7.4-10.4) fL Immature Gran % (Auto) % Neut % (Auto) % Lymph % (Auto) % [place] % (Auto) % Eos % (Auto) % Baso % (Auto) % Neut # (Auto) (1.4-6.5) K/uL Lymph # (Auto) (1.2-3.4) K/uL [place] # (Auto) (0.11-0.59) K/uL Eos # (Auto) (0-0.5) K/uL Baso # (Auto) (0-0.2) K/uL Immature Gran # (Auto) (0.00-0.02) K/uL RBC Morphology Sodium 138 (136-145) mmol/L Potassium 5.1 (3.5-5.1) mmol/L Chloride 109 H (98-107) mmol/L Carbon Dioxide 25 (21-32) mmol/L Anion Gap 4.0 (3-11) BUN 49 H (7-18) mg/dl Creatinine 2.12 H (0.6-1.2) mg/dl Est Cr Clr Drug Dosing 28.5 ml/min Est GFR ( Amer) 24.7 ml/min Est GFR (Non-Af Amer) 21.3 ml/min BUN/Creatinine Ratio 23.3 H (10-20) Glucose 87 (70-99) mg/dl POC Glucose 105 H (70-99) mg/dl Calcium 7.1 L (8.5-10.1) mg/dl Total Bilirubin (0.2-1) mg/dl Direct Bilirubin (0-0.2) mg/dl AST (15-37) U/L ALT (12-78) U/L Alkaline Phosphatase (45-117) U/L Total Protein (6.4-8.2) gm/dl Albumin (3.4-5.0) gm/dl Blood Type Antibody Screen Crossmatch 07/31/20 07/31/20 07/31/20 Range/Units 10:32 07:33 06:13 WBC 6.63 (4.8-10.8) K/uL RBC 2.81 L (4.2-5.4) M/uL Hgb 8.3 L (12.0-16.0) g/dL Hct 26.8 L (37-47) % MCV 95.4 (80-100) fL MCH 29.5 (25-34) pg MCHC 31.0 L (32-36) g/dL RDW Std Deviation 69.3 H (36.4-46.3) fL RDW Coeff of Erin 19.9 H (11.5-14.5) % Plt Count 419 H (130-400) K/uL MPV 8.7 (7.4-10.4) fL Immature Gran % (Auto) 0.9 % Neut % (Auto) 72.5 % Lymph % (Auto) 13.0 % [place] % (Auto) 12.5 % Eos % (Auto) 0.9 % Baso % (Auto) 0.2 % Neut # (Auto) 4.81 (1.4-6.5) K/uL Lymph # (Auto) 0.86 L (1.2-3.4) K/uL [place] # (Auto) 0.83 H (0.11-0.59) K/uL Eos # (Auto) 0.06 (0-0.5) K/uL Baso # (Auto) 0.01 (0-0.2) K/uL Immature Gran # (Auto) 0.06 H (0.00-0.02) K/uL RBC Morphology Sodium (136-145) mmol/L Potassium (3.5-5.1) mmol/L Chloride (98-107) mmol/L Carbon Dioxide (21-32) mmol/L Anion Gap (3-11) BUN (7-18) mg/dl Creatinine (0.6-1.2) mg/dl Est Cr Clr Drug Dosing ml/min Est GFR ( Amer) ml/min Est GFR (Non-Af Amer) ml/min BUN/Creatinine Ratio (10-20) Glucose (70-99) mg/dl POC Glucose 101 H 89 (70-99) mg/dl Calcium (8.5-10.1) mg/dl Total Bilirubin (0.2-1) mg/dl Direct Bilirubin (0-0.2) mg/dl AST (15-37) U/L ALT (12-78) U/L Alkaline Phosphatase (45-117) U/L Total Protein (6.4-8.2) gm/dl Albumin (3.4-5.0) gm/dl Blood Type Antibody Screen Crossmatch 07/31/20 07/31/20 07/30/20 Range/Units 02:36 02:36 13:23 WBC 6.52 (4.8-10.8) K/uL RBC 2.75 L (4.2-5.4) M/uL Hgb 8.1 L (12.0-16.0) g/dL Hct 25.7 L (37-47) % MCV 93.5 (80-100) fL MCH 29.5 (25-34) pg MCHC 31.5 L (32-36) g/dL RDW Std Deviation 67.3 H (36.4-46.3) fL RDW Coeff of Erin 19.8 H (11.5-14.5) % Plt Count 414 H (130-400) K/uL MPV 8.6 (7.4-10.4) fL Immature Gran % (Auto) 1.1 % Neut % (Auto) 70.0 % Lymph % (Auto) 16.1 % [place] % (Auto) 11.2 % Eos % (Auto) 1.4 % Baso % (Auto) 0.2 % Neut # (Auto) 4.57 (1.4-6.5) K/uL Lymph # (Auto) 1.05 L (1.2-3.4) K/uL [place] # (Auto) 0.73 H (0.11-0.59) K/uL Eos # (Auto) 0.09 (0-0.5) K/uL Baso # (Auto) 0.01 (0-0.2) K/uL Immature Gran # (Auto) 0.07 H (0.00-0.02) K/uL RBC Morphology Unremarkable Sodium 140 (136-145) mmol/L Potassium 5.0 (3.5-5.1) mmol/L Chloride 110 H (98-107) mmol/L Carbon Dioxide 25 (21-32) mmol/L Anion Gap 5.0 (3-11) BUN 50 H (7-18) mg/dl Creatinine 2.17 H (0.6-1.2) mg/dl Est Cr Clr Drug Dosing 27.8 ml/min Est GFR ( Amer) 24.0 ml/min Est GFR (Non-Af Amer) 20.7 ml/min BUN/Creatinine Ratio 23.0 H (10-20) Glucose 82 (70-99) mg/dl POC Glucose (70-99) mg/dl Calcium 6.3 L (8.5-10.1) mg/dl Total Bilirubin 0.5 (0.2-1) mg/dl Direct Bilirubin 0.2 (0-0.2) mg/dl AST 21 (15-37) U/L ALT < 6 L (12-78) U/L Alkaline Phosphatase 87 (45-117) U/L Total Protein 6.2 L (6.4-8.2) gm/dl Albumin 1.3 L (3.4-5.0) gm/dl Blood Type A Positive Antibody Screen NEGATIVE Crossmatch See Detail Diagnostic Findings Chest X-Ray 07/31/20 05:00 XR chest 1V portable CLINICAL HISTORY: Shortness of breath COMPARISON STUDY: 07/30/2020 FINDINGS: The heart is enlarged. There is aortic tortuosity/ectasia. There is radiographic evidence of mild pulmonary vascular congestion/fluid overload. Small pleural effusions are suspected. There is no lobar consolidation. There is a right-sided PICC catheter. The tip projects over the superior vena cava.[ IMPRESSION: Cardiomegaly and radiographic evidence of mild congestive failure/fluid overload with small bilateral pleural effusions. ACT 112: Negative or not required by law. Electronically signed by: Fletcher Fernando M.D. 07/31/2020 7:25 AM Abdomen/Pelvis CT 07/31/20 06:00 CT SCAN OF THE ABDOMEN AND PELVIS WITHOUT CONTRAST CLINICAL HISTORY: anemia COMPARISON STUDY: 07/05/2020 TECHNIQUE: CT scan of the abdomen and pelvis was performed from the lung bases to the proximal femurs. Images are reviewed in the axial, sagittal, and coronal planes. IV contrast was not administered for this examination. A dose lowering technique was utilized adhering to the principles of ALARA. CT DOSE: 1895.39 mGy.cm FINDINGS: Lower chest: There are small bilateral pleural effusions right greater than left with associated basilar parenchymal opacities statistically atelectatic Liver: The unenhanced liver is normal in size, contour, and attenuation. There is no intrahepatic biliary ductal dilatation. Gallbladder: Surgically absent Spleen: Normal in size and attenuation. Pancreas: Unremarkable. Adrenal glands: Unremarkable. Kidneys: There are bilateral subcentimeter nonobstructing renal calculi. No ureteral or bladder calculi are visualized. Bowel: There are no transition zones indicate bowel obstruction. There are no findings to indicate acute appendicitis. There are scattered colonic stool. There is no evidence of acute diverticulitis. Peritoneum: There is no intraperitoneal free air or abdominal ascites. Vasculature: The abdominal aorta is normal in course and caliber. Adenopathy: Iliac chain lymph nodes are the upper limits of normal in size. Pelvic viscera: The uterus is surgically absent. There is an indwelling Hess catheter. Skeletal structures: There are postsurgical changes present within the spine. There is subcutaneous nodules in the abdominal wall, likely secondary to prior injection sites. IMPRESSION: 1. Examination limited due to morbid obesity, motion artifact, and the lack of intravenous and oral contrast 2. Small bilateral pleural effusions with basilar parenchymal opacities likely atelectatic 3. No evidence of bowel obstruction. No evidence of free air 4. Bilateral nephrolithiasis. No ureteral calculi identified 5. No evidence of acute appendicitis. No evidence of acute diverticulitis. ACT 112: Negative or not required by law. Electronically signed by: Fletcher Fernando M.D. 07/31/2020 9:24 AM Chest X-Ray 07/31/20 17:19 SINGLE VIEW CHEST CLINICAL HISTORY: Aspiration. FINDINGS: 2 AP, portable, upright chest radiographs are compared to study performed earlier the same day 07/31/2020 and correlated with chest CT dated 06/23/2020. The examination is degraded by portable technique and patient rotation. A right PICC line is in place. The tip is not well-visualized and likely projects over the cavoatrial junction. The heart is enlarged noting atherosclerotic calcification of the thoracic aorta. Mild pulmonary vascular congestion persists. There are bibasilar airspace opacities. Small pleural effusions are noted. No pneumothorax is seen. The skeletal structures are osteopenic. There are healed right-sided rib fractures. IMPRESSION: 1. Cardiomegaly with evidence of congestive failure. 2. Small pleural effusions. 3. Bibasilar opacities are unchanged and likely represent atelectasis. Correlate clinically for evidence of a superimposed infectious/inflammatory pneumonitis. ACT 112: Negative or not required by law. Electronically signed by: Vinay Eubanks M.D. 07/31/2020 5:48 PM PG Care Time/CCT Total # of Minutes Spent Total Time Spent with Patient: Total time spent is greater than 50% in coordination of care (as documented) at patient's floor/unit and/or counseling patient: Prolonged Care Time Prolonged Care Time: Yes Total Prolonged Care Time: 90 Spent 90 minutes of prolonged care time in the 3 separate visits but I saw her today, review of chest x-ray and laboratory values, discussing care with nurses and family members Coding Level of Care Code 79689 Subseq Hosp Care Lvl 3 (25 - SIGNIFICANT, SEPARATELY IDENTIFIABLE ) Diagnoses Acute blood loss anemia D62 Anasarca R60.1 Aspiration into airway T17.908A CHF (congestive heart failure) I50.9 Heart failure chronicity: unspecified Heart failure type: unspecified Hematoma T14.8XXA Hypoalbuminemia E88.09 CKD (chronic kidney disease) N18.9 Chronic kidney disease stage: unspecified stage Hyperlipidemia E78.5 Diabetes mellitus, type 2 E11.9 Hypertension I10 MSSA bacteremia R78.81; B95.61 Atrial fibrillation I48.91 Asthma J45.909 Anxiety F41.9 DVT prophylaxis Z29.9 Additional Codes Prolonged Care Time - Prolonged Care Time: Yes ([id number]) (1) CHF (congestive heart failure) Heart failure chronicity: unspecified Heart failure type: unspecified Qualified Code(s): I50.9 - Heart failure, unspecified (2) CKD (chronic kidney disease) Chronic kidney disease stage: unspecified stage Qualified Code(s): N18.9 - Chronic kidney disease, unspecified
[2020-07-31] MEDS ORDERED: FUROSEMIDE 40 MG in SYRINGE 0 ML IV ONE (11:30)
[2020-07-31] MEDS: ALBUMIN 25% 12.5 GM/50 ML VIAL IV SCH ×4 (12:12→18:17)
[2020-07-31] MEDS ORDERED: INSULIN GLARGINE SOLOSTAR 100 UNITS/ML 3 ML PEN SC ONE (13:15)
[2020-07-31 16:25] LABS: Hematocrit (blood only) 24.4 % (37-47); Hemoglobin 7.7 g/dL (12.0-16.0); Mean Corpuscular Hemoglobin 29.5 pg (25-34); Mean Corpuscular Hgb Conc 31.6 g/dL (32-36); Mean Corpuscular Volume 93.5 fL (80-100); Mean Platelet Volume 8.7 fL (7.4-10.4); Platelet Count 392 K/uL (130-400); RDW Coefficient of Variation 19.9 % (11.5-14.5); RDW Standard Deviation 68.3 fL (36.4-46.3); Red Blood Count 2.61 M/uL (4.2-5.4); White Blood Count 5.68 K/uL (4.8-10.8)
[2020-07-31 16:32] LABS: BUN Creatinine Ratio 23.8 (10-20); Calcium 6.9 mg/dl (8.5-10.1); Creatinine Clr Calc Pharmacy 28.6 ml/min; Est GFR (African American) 24.8 ml/min; Est GFR (Non-African American) 21.4 ml/min; Potassium 4.9 mmol/L (3.5-5.1)
[2020-07-31] MEDS ORDERED: Nursing to Pharmacy Communication SCH (17:15)
[2020-07-31] MEDS ORDERED: SODIUM CHLORIDE 0.9% 250 ML IV PRN (17:38)
--- NOTE | 2020-07-31 17:49 | XRay Report ---
SINGLE VIEW CHEST CLINICAL HISTORY: Aspiration. FINDINGS: 2 AP, portable, upright chest radiographs are compared to study performed earlier the same day 07/31/2020 and correlated with chest CT dated 06/23/2020. The examination is degraded by portable te chnique and patient rotation. A right PICC line is in place. The tip is not well-visualized and likel y projects over the cavoatrial junction. The heart is enlarged noting atherosclerotic calcification o f the thoracic aorta. Mild pulmonary vascular congestion persists. There are bibasilar airspace opaci ties. Small pleural effusions are noted. No pneumothorax is seen. The skeletal structures are osteope jennifer. There are healed right-sided rib fractures. IMPRESSION: 1. Cardiomegaly with evidence of congestive failure. 2. Small pleural effusions. 3. Bibasilar opacities are unchanged and likely represent atelectasis. Correlate clinically for evide nce of a superimposed infectious/inflammatory pneumonitis. ACT 112: Negative or not required by law. Electronically signed by: Vinay Eubanks M.D. 07/31/2020 5:48 PM
[2020-07-31] MEDS: FUROSEMIDE 40 MG in SYRINGE 0 ML IV SCH (18:16)
[2020-07-31] MEDS ORDERED: INSULIN GLARGINE SOLOSTAR 100 UNITS/ML 3 ML PEN SC SCH (21:00)
[2020-07-31] MEDS: QUEtiapine FUMARATE 25 MG TABLET PO SCH (21:02)
[2020-07-31] MEDS: ATORVASTATIN 40 MG TAB PO SCH (21:02)
[2020-07-31] MEDS: CITALOPRAM 40 MG TAB PO SCH (21:03)
[2020-07-31] MEDS ORDERED: ALBUTEROL 0.083% NEBU SOLN 3 ML VIAL INH PRN (22:25)
[2020-08-01 07:33] LABS: Basophils # (auto) 0.01 K/uL (0-0.2); Basophils % (auto) 0.1 %; Eosinophils # (auto) 0.03 K/uL (0-0.5); Eosinophils % (auto) 0.3 %; Hematocrit (blood only) 28.1 % (37-47); Hemoglobin 8.8 g/dL (12.0-16.0); Immature Granulocytes # (auto) 0.05 K/uL (0.00-0.02); Immature Granulocytes % (auto) 0.5 %; Lymphocytes # (auto) 1.04 K/uL (1.2-3.4); Lymphocytes % (auto) 9.8 %; Mean Corpuscular Hemoglobin 29.9 pg (25-34); Mean Corpuscular Hgb Conc 31.3 g/dL (32-36); Mean Corpuscular Volume 95.6 fL (80-100); Mean Platelet Volume 8.6 fL (7.4-10.4); Monocytes # (auto) 0.43 K/uL (0.11-0.59); Monocytes % (auto) 4.1 %; Neutrophils % (auto) 85.2 %; Platelet Count 397 K/uL (130-400); RDW Coefficient of Variation 19.1 % (11.5-14.5); RDW Standard Deviation 66.8 fL (36.4-46.3); Red Blood Count 2.94 M/uL (4.2-5.4); White Blood Count 10.56 K/uL (4.8-10.8)
[2020-08-01 07:53] LABS: INR 1.1 (0.9-1.1); Partial Thromboplastin Ratio 1.2; Partial Thromboplastin Time 31.2 Seconds (21.0-31.0); Prothrombin Time 11.3 Seconds (9.0-12.0)
[2020-08-01 08:06] LABS: Alanine Aminotransferase < 6 U/L (12-78); Aspartate Aminotransferase 15 U/L (15-37); BUN Creatinine Ratio 25.8 (10-20); Blood Urea Nitrogen 55 mg/dl (7-18); Calcium 7.7 mg/dl (8.5-10.1); Carbon Dioxide 23 mmol/L (21-32); Chloride 107 mmol/L (98-107); Creatinine Clr Calc Pharmacy 28.1 ml/min; Est GFR (African American) 24.7 ml/min; Est GFR (Non-African American) 21.3 ml/min; Glucose 78 mg/dl (70-99); Magnesium 1.9 mg/dl (1.8-2.4); Potassium 4.8 mmol/L (3.5-5.1); Sodium 138 mmol/L (136-145)
[2020-08-01 08:09] LABS: Albumin Globulin Ratio 0.4 (0.9-2); Alkaline Phosphatase 83 U/L (45-117); Bilirubin,Total 0.6 mg/dl (0.2-1); Globulin 4.8 gm/dl (2.5-4.0); Phosphorus 3.9 mg/dl (2.5-4.9); Total Protein 6.8 gm/dl (6.4-8.2)
[2020-08-01] MEDS ORDERED: INSULIN GLARGINE SOLOSTAR 100 UNITS/ML 3 ML PEN SC SCH (09:00)
[2020-08-01] MEDS: ceFAZolin 1000MG 1,000 MG/7.5 ML SYR IV SCH ×2 (09:23→21:44)
[2020-08-01] MEDS: GABAPENTIN 600 MG TAB PO SCH ×2 (09:24→21:39)
[2020-08-01] MEDS: METOPROLOL SUCC 50MG EXT REL TAB PO SCH (09:24)
[2020-08-01] MEDS: DOCUSATE SODIUM 100 MG CAP PO SCH (09:24)
[2020-08-01] MEDS: FUROSEMIDE 40 MG in SYRINGE 0 ML IV SCH (09:24)
[2020-08-01] MEDS: AMIODARONE 200 MG TAB PO SCH ×3 (09:25→22:14)
[2020-08-01] MEDS: INSULIN ASPART 100 UNITS/ML 3 ML PEN SC SCH ×4 (09:25→21:40)
[2020-08-01] MEDS: PANTOprazole 40 MG TAB PO SCH (09:27)
[2020-08-01] MEDS ORDERED: CALCIUM GLUCONATE 10% 1,000 MG in SODIUM CHLORIDE 0.9% 50 ML IV ONE (10:00)
[2020-08-01] MEDS ORDERED: MAGNESIUM SULFATE / D5W 1 GM/100 ML BAG IV ONE (10:00)
--- NOTE | 2020-08-01 10:25 | Pharmacy Report ---
Pharmacy Glycemic Short Note 2 - Date of Service August 01, 2020 - Glycemic Short BSG Results (Last 24 hours): 07/31/20 07/31/20 07/31/20 10:32 11:34 15:57 Glucose 87 80 POC Glucose 105 H 07/31/20 07/31/20 08/01/20 16:16 20:12 07:12 Glucose 78 POC Glucose 193 H 92 08/01/20 07:45 Glucose POC Glucose 94 OUTPATIENT ANTIDIABETIC REGIMEN: * Lantus 25 units SC BID * HbA1c: 7% (06/24/20) ASSESSMENT: 08/01 * Pt has received 18 units of insulin over the past 24hrs * 13 units of basal with Lantus * 5 units of bolus with NovoLog * BSGs [phone] mg/dl * AM fasting BSG is sightly below goal range for inpatient targets at 94mg/dl. Will slightly decrease basal insulin from 13 to 10 units * Post-prandial BSG elevated prior to dinner due to CHO coverage subtracted off fro lunch when BSG below goal rage at 105mg/dl. Will adjust the low end of the goal range to prevent CHO coverage subtraction. 07/31 * AB is an 80 year old female who presents from [facility] with shortness of breath, patient subsequently found to be anemic with hemoglobin of 6.1 * Pharmacy consulted for glycemic management due to hypoglycemia (BSG of 48 mg/dL on admission) * Patient received 25 units of Lantus prior to admission * Patient is currently NPO * Patient was recently hospitalized in May-June of this year with MSSA bacteremia secondary to lumbar spinal abscess * Currently on six weeks of cefazolin to end 08/16/20 PLAN FOR INPATIENT GLYCEMIC CONTROL: * Basal insulin * Lantus 10 units SQ daily * NO PM Lantus * Bolus insulin * NovoLog per scale ACHS or Q6hrs while NPO * Goal Range: Low 100 mg/dL - High 140 mg/dL (lower the low end of the goal range) * Correction Factor: 25 mg/dL/unit * Nutritional / Prandial insulin per carb ratio of 1 unit per 8 grams CHO consumed PLAN FOR DISCHARGE: * Reasonable HbA1c goal for this patient based on age and comorbidities would be less than 8% * Given hypoglycemia, patient will likely require insulin dose reduction at discharge
[2020-08-01] MEDS ORDERED: ERTAPENEM SODIUM 1,000 MG in SODIUM CHLORIDE 0.9% 50 ML IV SCH (10:30)
--- NOTE | 2020-08-01 11:42 | Hospitalist Progress Note ---
Date of Service August 01, 2020 Assessment & Plan (1) Acute blood loss anemia: Patient presents with increasing shortness of breath and was found to have a hemoglobin of 6.1 down from 8 previously She has a history of acute blood loss anemia from admission several weeks ago after having large left gluteal hematoma. She has been receiving therapeutic dose Lovenox injections for her paroxysmal a trial fibrillation since discharge from [facility] 2 weeks ago She has pain at the hematoma site and due to her morbid obesity, it is difficult to tell if this is enlarged from previous but this is most likely source of continued blood loss CT abdomen/pelvis without evidence of bleeding Stool was guaiac negative reportedly She is hemodynamically stable Was transfused 2 units PRBCs upon admission and hemoglobin was up to 8.1 and then dropped down again on repeat CBC to 7.7 on 07/31 She was given 1 more unit of PRBCs on the evening of 07/31 Hemoglobin on 08/01 is now increased appropriately and stable at 8.8 -Discontinued Lovenox and would not recommend restarting this due to to severe b leeding episodes in the last month -Hold home aspirin -Follow calcium levels and replace as needed-we will give 1 g of IV gluconate today for low ionized calcium as this is a clotting factor -Follow CBC daily (2) Anasarca: With massive volume overload and anasarca on examination secondary to acute on chronic diastolic CHF Her weight is up 19 kg in the last 4 weeks when she arrived She has severe hypoalbuminemia with an albumin of 1.3 and acute kidney injury as below when she arrived -Received 2 days worth of IV albumin and IV Lasix twice daily-no further albumin needed -Continue IV Lasix but increased to 80 mg IV twice daily -Consult nephrology for management given acute kidney injury, ATN, and need for diuresis in case renal function worsens -Follow daily weights, I's and O's, low-sodium diet -Follow renal function with diuresis -Consult dietitian for improved nutritional status recommendations (3) Aspiration into airway: Had an episode of aspiration while eating dinner on the evening of 07/31 whi ch caused tachypnea, upper respiratory gurgling and cough This resolved with coughing Chest x-ray unchanged from previous Is on minced and moist diet Consult speech therapy appreciated-no evidence of aspiration on bedside swallow Developed low-grade fevers in the morning of 08/01 -Check blood cultures, procalcitonin is normal -Add on ertapenem in case of aspiration pneumonitis (4) CHF (congestive heart failure): Acute on chronic diastolic CHF with anasarca as above Likely precipitated by prolonged hospital stay with multiple blood transfusions and IV fluids given Diuresing as above (5) Hematoma: Left gluteus and left lower abdomen Exacerbated by therapeutic Lovenox injections Was present on previous hospitalization as well Transfused as above (6) Hypoalbuminemia: Severe, albumin 1.3 upon admission and received IV albumin in setting of acute on chronic diastolic CHF and anasarca, now improved to 2.0 Dietary consult (7) CKD (chronic kidney disease): Acute kidney failure on CKD stage III secondary to ATN UA with granular casts upon admission Creatinine has been down to 1.2-1.5 on recent labs and is now up to 2.1 and stable on serial BMPs in the setting of IV diuresis Potassium is borderline high-discontinued home oral potassium supplement and this is now improved She has making plenty of urine Continue diuresis as above with IV Lasix Follow BMP in the morning -Avoid nephrotoxins-was on NSAIDs on home medication list-discontinue these -We will also decrease gabapentin down to 600 mg p.o. twice daily -renally dose meds when appropriate Appreciate nephrology consultation (8) Hyperlipidemia: Continue atorvastatin (9) Diabetes mellitus, type 2: Hemoglobin A1c well controlled at 7.0% in 05/2020 consult glycemic control placed at time of admission Continue NovoLog and Lantus Continue diabetic diet (10) Hypertension: Blood pressure stable Continue Toprol-XL -Continue to monitor (11) MSSA bacteremia: With a history of such from 1 month ago as well as lumbar spinal abscess required interventional radiology for drainage -Will continue cefazolin through 6 week treatment ends on 08/16 [address] line in place in the right upper extremity Was supposed to follow-up in the next 1 to 2 weeks with infectious disease To follow CBC, CMP, CRP once weekly while on antibiotics With low-grade fevers here as above thought to be more likely related to aspiration pneumonitis, but repeat blood cultures now (12) Atrial fibrillation: With a history of rapid atrial fibrillation during hospitalization last month with severe illness including Covid-19 pneumonia, acute blood loss anemia, and MSSA bacteremia lumbar spinal abscess At that time of that hospitalization, she required DC cardioversion for unstable rapid atrial fibrillation Remains in sinus rhythm here continue amiodarone 200 mg p.o. twice daily Continue Toprol-XL -Continue monitoring on telemetry (13) Asthma: With wheezing here which seems more upper airway related to aspiration-now resolved -Continue albuterol rescue inhaler as needed -Continue Fluticasone/Vilanterol (14) Anxiety: Chronic -Continue Citalopram (15) DVT prophylaxis: Holding therapeutic Lovenox for acute blood loss anemia as above Disposition-continued stay on PCU Patient wishes to be a DNI, but still wants CPR in the setting of cardiac arrest without being put on mechanical ventilation Case discussed with daughter on phone Admission and Anticipated Discharge Date Admission Date: July 30, 2020 Subjective Patient reports feeling better today than last evening after she aspirated with dinner. She is coughing less. Still feels short of breath and is tachypneic at rest. We discussed if she would ever want to be on a ventilator and she emphatically stated that she never would be even though she continues to desire CPR for resuscitation in the event of cardiac arrest. If she has cardiac arrest and is resuscitated, she still does not want to go on a ventilator. She is willing to get BiPAP trial and has been on this before if needed. She had some low-grade fevers this morning. Otherwise, she is eating well this morning was seen by speech therapy. She has some pain still in the left lower abdomen and buttock. Telemetry with normal sinus rhythm, rates in the 80s to 90s, PACs Review of Systems Review of Systems: All systems reviewed & are unremarkable except as noted in HPI & below Physical Exam Constitutional: WD/WN, vitals as above + ill appearing and + morbidly obese Eyes: + anicteric sclerae Neck: trachea midline, no thyromegaly Respiratory: + tachypneic Auscultation: + crackles (At lower lung sampson bilaterally); no rhonchi and no wheezes Cardiovascular: Rate/Rhythm: regular rate and regular rhythm Heart Sounds: no murmur Extremities: + edema (Anasarca with 3-4+ in all extremities although slightly improved in hands) Chest (Breasts): Chest: normal inspection of chest Gastrointestinal (Abdomen): normal bowel sounds, soft, nontender, no hepatosplenomegaly Musculoskeletal: Extremities: no cyanosis and no clubbing Skin: no rashes, warm and dry + ulcer (Right lateral chest wall 3 x 4 cm, no erythema) and + wound (Left lateral hip with superficial skin tear 3 x 2 cm) Trauma: + hematoma (Left lower abdomen into left gluteus with very large palpable hematoma) Neurologic: moves all extremities and awake; no focal motor deficits Psychiatric: A+Ox3, euthymic affect Genitourinary: + abnormal external appearance (Hess catheter in place draining clear yellow urine) Results & Data Results & Data ([facility]) Vital Signs (Past 12 Hours) Vital Signs Temp Pulse Pulse Resp BP Pulse Ox 08/01/20 08:00 37.6 C H 84 16 144/72 H 99 08/01/20 04:13 37.8 C H 83 18 150/82 H 97 08/01/20 00:00 73 Laboratory Results 08/01/20 07:12 08/01/20 07:12 PG Care Time/CCT Total # of Minutes Spent Total Time Spent with Patient: Total time spent is greater than 50% in coor dination of care (as documented) at patient's floor/unit and/or counseling patient: Coding Level of Care Code 68143 Subseq Hosp Care Lvl 3 Diagnoses Acute blood loss anemia D62 Anasarca R60.1 Aspiration into airway T17.908A CHF (congestive heart failure) I50.9 Heart failure chronicity: unspecified Heart failure type: unspecified Hematoma T14.8XXA Hypoalbuminemia E88.09 CKD (chronic kidney disease) N18.9 Chronic kidney disease stage: unspecified stage Hyperlipidemia E78.5 Diabetes mellitus, type 2 E11.9 Hypertension I10 MSSA bacteremia R78.81; B95.61 Atrial fibrillation I48.91 Asthma J45.909 Anxiety F41.9 DVT prophylaxis Z29.9 (1) CHF (congestive heart failure) Heart failure chronicity: unspecified Heart failure type: unspecified Qualified Code(s): I50.9 - Heart failure, unspecified (2) CKD (chronic kidney disease) Chronic kidney disease stage: unspecified stage Qualified Code(s): N18.9 - Chronic kidney disease, unspecified
[2020-08-01] MEDS ORDERED: ALBUMIN 25% 12.5 GM/50 ML VIAL IV ONE (12:00)
--- NOTE | 2020-08-01 12:18 | Nephrology Consultation ---
Date of Consultation August 01, 2020 Assessment & Plan (1) DANIEL (acute kidney injury): DANIEL due to ATN. Granular casts persistent on admission. Non-oliguric. Electrolytes acceptable. No emergent indication for dialysis. Kidney function has been stable since admission. Urine studies will be updated today for monitoring. Will follow. Medications acceptable. Strongly encourage weaning of gabapentin as tolerated. (2) Anasarca: Continue furosemide to encourage negative fluid balance. Nutritional goals reviewed. Ambulate as able. Treatment of anemia. I would also wean gabapentin as tolerated. Document strict I/O's and check metabolic profile daily while inpatient. (3) CKD (chronic kidney disease): Baseline creatinine 1.5 mg/dL. Microalbuminuria without notable proteinuria. CKD attributed to DKD, obesity, and microvascular disease. CT reviewed today. (4) Hypoalbuminemia: Nutritional goals reviewed. No clear benefit of IV albumin. Continue furosemide to encourage negative fluid balance. History of Present Illness Reason for Consultation: DANIEL/CKD, anasarca Requesting Physician: Miranda Parson MD Attending Physician: Miranda Parson MD History of Present Illness Celina Mcbride is an 80-year-old female with CKD. Nephrology consultation requested for DANIEL and anasarca. Celina states that she has never been evaluated by a n ephrologist in the past. Serum creatinine on July 26 was 1.54 mg/dL. Creatinine on admission (07/30) was 2.26 mg/dL. Creatinine is stable at this time. DANIEL attributed to ATN during recent hospitalization at [facility]. These records were reviewed today. Celina was admitted in May with COVID 19 pneumonia. She developed MSSA bacteremia and a lumbar abscess. Hospitalization complicated by acute blood loss anemia related to a gluteal hematoma. Celina as discharged back to SNF where she resides at [facility]. She was admitted to [facility] on July [address] abdomen/pelvis on admission was reviewed. The kidneys were found to be unobstructed. UA notable for trace protein, microscopy >30 RBC's. Hess draining loraine urine. Celina is non-oliguric. She remains in a negative fluid balance since admission. Furosemide now at 80 mg IV BID. Weight down from 138 to 134 kg since admission. Medical history notable for DMII, morbid obesity, asthma, recent atrial fibrillation with RVR requiring cardioversion, OA/DJD with chronic back pain and history of lumbar fusion, history of breast cancer s/p mastectomy with adjuvant chemotherapy and radiation, CAD with OH approximately 20 years ago. Celina was resting comfortably in bed at the time of my assessment. She was drinking with a straw and notably aspirating. She reports persistent cough for several days which is non productive. She denies dyspnea at rest but notes that she is very weak and debilitated. She has notable edema of the upper and lower extremities. Allergies Allergy/AdvReac Type Severity Reaction Status Date / Time bee venom protein (honey bee) Allergy Severe SWELLING Verified 07/30/20 14:27 SOB iodine Allergy Severe RASH; Verified 07/30/20 14:27 SHORTNESS OF BREATH codeine Allergy Intermediate SWELLING Verified 07/30/20 14:27 metformin Allergy Intermediate Diarrhea Verified 07/30/20 14:27 Penicillins Allergy Intermediate RASH/HIVES Verified 07/30/20 14:27 chocolate flavor Allergy Mild Diarrhea Verified 07/30/20 14:27 procaine Allergy Mild NOVOCAINE-R Verified 07/30/20 14:27 AKILAH Cephalosporins Allergy Unknown UNKNOWN Verified 07/30/20 14:27 clarithromycin Allergy Unknown Unknown Verified 07/30/20 14:27 shellfish derived Allergy Unknown Unknown Verified 07/30/20 14:27 Home Medications Medication Instructions Recorded Confirmed Type ipratropium bromide 21 mcg (0.03 2 sprays INTNAS TID PRN #30 ml 10/28/18 07/30/20 Rx %) nasal spray Lift Chair #1 ea 03/09/19 05/29/20 Rx aspirin 81 mg tablet,delayed 81 mg PO DAILY 05/02/19 07/30/20 History release potassium chloride 10 mEq 10 meq PO QAM #90 tab 08/31/19 07/30/20 Rx tablet,extended release atorvastatin 40 mg tablet 40 mg PO HS #90 tab 10/12/19 07/30/20 Rx lancets 30 gauge #100 ea 11/15/19 05/29/20 Rx meloxicam 7.5 mg tablet 7.5 mg PO BID PRN #60 tab 12/19/19 07/30/20 Rx docusate sodium 100 mg capsule 200 mg PO DAILY #60 cap 12/27/19 07/30/20 Rx insulin syringe-needle U-100 0.3 #100 ea 01/29/20 05/29/20 Rx mL 31 gauge x 07/14" flash glucose sensor #1 ea 03/14/20 05/29/20 Rx flash glucose scanning reader #1 ea 03/26/20 05/29/20 Rx nitroglycerin 0.4 mg sublingual 0.4 mg SUBLINGUAL Q5M PRN #25 tab 05/16/20 07/30/20 Rx tablet albuterol sulfate 2.5 mg INH QID PRN 06/23/20 07/30/20 History amiodarone 200 mg PO BID 07/30/20 07/30/20 History cefazolin 1 g IV Q12H 07/30/20 07/30/20 History citalopram [Celexa] 40 mg PO QPM 07/30/20 07/30/20 History enoxaparin 130 mg SUBCUT Q12 07/30/20 07/30/20 History furosemide 40 mg PO QAM 07/30/20 07/30/20 History gabapentin [Neurontin] 1,200 mg PO BID 07/30/20 07/30/20 History insulin glargine [Lantus U-100 25 unit SUBCUT BID 07/30/20 07/30/20 History Insulin] metoprolol succinate 50 mg PO DAILY 07/30/20 07/30/20 History pantoprazole [Protonix] 40 mg PO QAM 07/30/20 07/30/20 History quetiapine [Seroquel] 25 mg PO HS 07/30/20 07/30/20 History Patient History Medical History Anasarca Anxiety Asthma RARELY NEEDS PRN INH Atrial fibrillation Paroxysmal, not on anticoagulation. Per cardio 12/25/15, "since she has not had a paroxysmal for many years, no therapy will be initiated today. Given her elevated CHADSVASC score, though, would recommend anticoagulation therapy if she were to develop any recurrent episodes of A. fib in the future." Chronic back pain Chronic chest pain Has been evaluated by cardio, ruled to be non-cardiac in origin. 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 Non-obstructive CAD. "Non-cardiac chest pain." History of carpal tunnel release BL History of cataract surgery History of cholecystectomy History of dilatation and curettage History of hysterectomy History of partial gastrectomy History of right mastectomy NO BP/IV RUE History of tonsillectomy History of tooth extraction History of total knee replacement BL History of total shoulder replacement RT Family History Sister Family history of diabetes mellitus Breast cancer Daughter Family history of reaction to anesthesia SLOW TO WAKE UP Grandfather (Maternal) Myocardial infarction Denies family history of Ovarian cancer Prostate cancer Colorectal cancer Social History Smoking Status: Never smoker Second Hand Exposure: No; Do You Dip or Chew Tobacco: No; Hx Alcohol Use: No Hx Substance Use: No Preferred Language: [place]ian Communication Ability: Effective Visual Impairment: No Limitations Hearing Ability: Normal Wood Gang Sawyer Required: No Beliefs That Will Affect Care: None marital status: Current Living Situation: Spouse and Rehab Current Living Situation Comment: Recently at rehab facility. Normally lives w/hisband current occupational status: retired current occupation: retired [employer] Other Information That Helps Us Care for You: No Feels Safe at Home: Yes Safety Concerns: Feels Safe At This Time Childhood Exposure to Second-Hand Smoke: No Dental Care, Regularly: No Physical Activity Frequency: Does not Exercise Seatbelt Use: always Sunscreen Use: No Assistive Devices: Denture - Upper, Denture - Lower and Oxygen - Continuous Review of Systems Review of Systems: All systems reviewed & are unremarkable except as noted in HPI & below Constitutional: + weakness and + weight gain; no fever and no chills Respiratory: + cough; no dyspnea Cardiovascular: + edema; no chest pain and no palpitations Gastrointestinal: no dysphagia Physical Exam Constitutional: well developed, + morbidly obese and + disheveled; no acute distress Eyes: + anicteric sclerae; no corneal abnormality ENMT: Mouth: no oral mucosal abnormality and oral mucous membranes not dry Neck: normal visual inspection, trachea midline and + thick neck Respiratory: normal respiratory effort Auscultation: lungs clear to auscultation bilaterally and + diminished lung sounds Cardiovascular: Rate/Rhythm: regular rate Heart Sounds: normal S1 and normal S2 Extremities: + edema Gastrointestinal (Abdomen): Percussion/Palpation: abdomen soft; abdomen nontender Musculoskeletal: Extremities: no cyanosis and no clubbing Skin: no lesions and no jaundice Neurologic: Motor/Sensory: no tremor and no asterixis Psychiatric: Orientation: alert and oriented x 3 Genitourinary: Hess draining loraine urine Results & Data ([facility]) Vital Signs (Past 12 Hours) Vital Signs Temp Pulse Resp BP Pulse Ox 08/01/20 12:00 37.0 C 89 20 142/72 H 98 08/01/20 08:00 37.6 C H 84 16 144/72 H 99 08/01/20 04:13 37.8 C H 83 18 150/82 H 97 Laboratory Results Laboratory Results - last 24 hr 07/30/20 07/31/20 07/31/20 13:23 15:57 15:57 WBC 5.68 RBC 2.61 L Hgb 7.7 L Hct 24.4 L MCV 93.5 MCH 29.5 MCHC 31.6 L RDW Std Deviation 68.3 H RDW Coeff of Erin 19.9 H Plt Count 392 MPV 8.7 Immature Gran % (Auto) Neut % (Auto) Lymph % (Auto) [place] % (Auto) Eos % (Auto) Baso % (Auto) Neut # (Auto) Lymph # (Auto) [place] # (Auto) Eos # (Auto) Baso # (Auto) Immature Gran # (Auto) PT INR APTT PTT Ratio Sodium 140 Potassium 4.9 Chloride 109 H Carbon Dioxide 25 Anion Gap 6.0 BUN 50 H Creatinine 2.11 H Est Cr Clr Drug Dosing 28.6 Est GFR ( Amer) 24.8 Est GFR (Non-Af Amer) 21.4 BUN/Creatinine Ratio 23.8 H Glucose 80 POC Glucose Calcium 6.9 L Ionized Calcium Phosphorus Magnesium Total Bilirubin AST ALT Alkaline Phosphatase Total Protein Albumin Globulin Albumin/Globulin Ratio Procalcitonin Blood Type A Positive Antibody Screen NEGATIVE Crossmatch See Detail 07/31/20 07/31/20 08/01/20 16:16 20:12 07:12 WBC 10.56 RBC 2.94 L Hgb 8.8 L Hct 28.1 L MCV 95.6 MCH 29.9 MCHC 31.3 L RDW Std Deviation 66.8 H RDW Coeff of Erin 19.1 H Plt Count 397 MPV 8.6 Immature Gran % (Auto) 0.5 Neut % (Auto) 85.2 Lymph % (Auto) 9.8 [place] % (Auto) 4.1 Eos % (Auto) 0.3 Baso % (Auto) 0.1 Neut # (Auto) 9.00 H Lymph # (Auto) 1.04 L [place] # (Auto) 0.43 Eos # (Auto) 0.03 Baso # (Auto) 0.01 Immature Gran # (Auto) 0.05 H PT INR APTT PTT Ratio Sodium Potassium Chloride Carbon Dioxide Anion Gap BUN Creatinine Est Cr Clr Drug Dosing Est GFR ( Amer) Est GFR (Non-Af Amer) BUN/Creatinine Ratio Glucose POC Glucose 193 H 92 Calcium Ionized Calcium Phosphorus Magnesium Total Bilirubin AST ALT Alkaline Phosphatase Total Protein Albumin Globulin Albumin/Globulin Ratio Procalcitonin Blood Type Antibody Screen Crossmatch 08/01/20 08/01/20 08/01/20 07:12 07:12 07:12 WBC RBC Hgb Hct MCV MCH MCHC RDW Std Deviation RDW Coeff of Erin Plt Count MPV Immature Gran % (Auto) Neut % (Auto) Lymph % (Auto) [place] % (Auto) Eos % (Auto) Baso % (Auto) Neut # (Auto) Lymph # (Auto) [place] # (Auto) Eos # (Auto) Baso # (Auto) Immature Gran # (Auto) PT 11.3 INR 1.1 APTT 31.2 H PTT Ratio 1.2 Sodium 138 Potassium 4.8 Chloride 107 Carbon Dioxide 23 Anion Gap 8.0 BUN 55 H Creatinine 2.12 H Est Cr Clr Drug Dosing 28.1 Est GFR ( Amer) 24.7 Est GFR (Non-Af Amer) 21.3 BUN/Creatinine Ratio 25.8 H Glucose 78 POC Glucose Calcium 7.7 L Ionized Calcium 1.03 L Phosphorus 3.9 Magnesium 1.9 Total Bilirubin 0.6 AST 15 ALT < 6 L Alkaline Phosphatase 83 Total Protein 6.8 Albumin 2.0 L Globulin 4.8 H Albumin/Globulin Ratio 0.4 L Procalcitonin Blood Type Antibody Screen Crossmatch 08/01/20 08/01/20 08/01/20 07:24 07:45 11:22 WBC RBC Hgb Hct MCV MCH MCHC RDW Std Deviation RDW Coeff of Erin Plt Count MPV Immature Gran % (Auto) Neut % (Auto) Lymph % (Auto) [place] % (Auto) Eos % (Auto) Baso % (Auto) Neut # (Auto) Lymph # (Auto) [place] # (Auto) Eos # (Auto) Baso # (Auto) Immature Gran # (Auto) PT INR APTT PTT Ratio Sodium Potassium Chloride Carbon Dioxide Anion Gap BUN Creatinine Est Cr Clr Drug Dosing Est GFR ( Amer) Est GFR (Non-Af Amer) BUN/Creatinine Ratio Glucose POC Glucose 94 101 H Calcium Ionized Calcium Phosphorus Magnesium Total Bilirubin AST ALT Alkaline Phosphatase Total Protein Albumin Globulin Albumin/Globulin Ratio Procalcitonin 0.22 Blood Type Antibody Screen Crossmatch PG Care Time/CCT Total # of Minutes Spent Total Time Spent with Patient: Total time spent is greater than 50% in coordination of care (as documented) at patient's floor/unit and/or counseling patient: Coding Level of Care Code 39465 Inpt Consult Level 4 Diagnoses DANIEL (acute kidney injury) N17.9 Anasarca R60.1 CKD (chronic kidney disease) N18.9 Chronic kidney disease stage: unspecified stage Hypoalbuminemia E88.09 (1) CKD (chronic kidney disease) Chronic kidney disease stage: unspecified stage Qualified Code(s): N18.9 - Chronic kidney disease, unspecified
[2020-08-01] MEDS: FUROSEMIDE 80 MG in SYRINGE 0 ML IV SCH (16:58)
[2020-08-01 18:55] LABS: Appearance Urine Turbid (Clear); Bacteria Urine Automated Negative (Negative); Bilirubin Urine Negative (Negative); Blood Urine 3+ (Negative); Color Urine Orange; Glucose Urine UA Negative (Negative); Ketones Urine Negative (Negative); Leukocyte Esterase Urine 1+ (Negative); Nitrite Urine Negative (Negative); Protein Urine 1+ (Negative); Specific Gravity Urine 1.013 (1.000-1.030); Urobilinogen Urine Negative (Negative)
[2020-08-01 20:10] LABS: RBC Urine Automated >30 /hpf (0-4)
[2020-08-01] MEDS: QUEtiapine FUMARATE 25 MG TABLET PO SCH (21:40)
[2020-08-01] MEDS: ATORVASTATIN 40 MG TAB PO SCH (21:40)
[2020-08-01] MEDS: CITALOPRAM 40 MG TAB PO SCH (21:40)
[2020-08-01] MEDS: ACETAMINOPHEN 500 MG TAB PO PRN (21:44)
[2020-08-02 07:44] LABS: Basophils # (auto) 0.01 K/uL (0-0.2); Basophils % (auto) 0.2 %; Eosinophils # (auto) 0.13 K/uL (0-0.5); Hematocrit (blood only) 26.5 % (37-47); Hemoglobin 8.1 g/dL (12.0-16.0); Immature Granulocytes # (auto) 0.05 K/uL (0.00-0.02); Immature Granulocytes % (auto) 0.8 %; Lymphocytes # (auto) 0.84 K/uL (1.2-3.4); Lymphocytes % (auto) 12.8 %; Mean Corpuscular Hemoglobin 29.3 pg (25-34); Mean Corpuscular Hgb Conc 30.6 g/dL (32-36); Mean Platelet Volume 8.4 fL (7.4-10.4); Monocytes # (auto) 0.74 K/uL (0.11-0.59); Monocytes % (auto) 11.3 %; Neutrophils # (auto) 4.77 K/uL (1.4-6.5); Neutrophils % (auto) 72.9 %; Platelet Count 358 K/uL (130-400); RDW Coefficient of Variation 18.9 % (11.5-14.5); RDW Standard Deviation 66.2 fL (36.4-46.3); Red Blood Count 2.76 M/uL (4.2-5.4); White Blood Count 6.54 K/uL (4.8-10.8)
[2020-08-02 08:11] LABS: Alanine Aminotransferase < 6 U/L (12-78); Albumin Level 1.8 gm/dl (3.4-5.0); Aspartate Aminotransferase 17 U/L (15-37); BUN Creatinine Ratio 24.4 (10-20); Blood Urea Nitrogen 57 mg/dl (7-18); Calcium 7.8 mg/dl (8.5-10.1); Carbon Dioxide 25 mmol/L (21-32); Chloride 105 mmol/L (98-107); Creatinine Clr Calc Pharmacy 25.4 ml/min; Est GFR (African American) 21.9 ml/min; Est GFR (Non-African American) 18.9 ml/min; Glucose 83 mg/dl (70-99); Potassium 4.3 mmol/L (3.5-5.1); Sodium 137 mmol/L (136-145)
[2020-08-02 08:14] LABS: Albumin Globulin Ratio 0.4 (0.9-2); Alkaline Phosphatase 72 U/L (45-117); Bilirubin,Total 0.4 mg/dl (0.2-1); Globulin 4.5 gm/dl (2.5-4.0); Total Protein 6.3 gm/dl (6.4-8.2)
[2020-08-02] MEDS: AMIODARONE 200 MG TAB PO SCH ×2 (08:45→20:05)
[2020-08-02] MEDS: DOCUSATE SODIUM 100 MG CAP PO SCH (08:45)
[2020-08-02] MEDS: GABAPENTIN 600 MG TAB PO SCH ×2 (08:45→20:06)
[2020-08-02] MEDS: METOPROLOL SUCC 50MG EXT REL TAB PO SCH (08:45)
[2020-08-02] MEDS: INSULIN ASPART 100 UNITS/ML 3 ML PEN SC SCH ×4 (08:46→20:12)
[2020-08-02] MEDS: INSULIN GLARGINE SOLOSTAR 100 UNITS/ML 3 ML PEN SC SCH (08:46)
[2020-08-02] MEDS: PANTOprazole 40 MG TAB PO SCH (08:46)
[2020-08-02] MEDS: FUROSEMIDE 80 MG in SYRINGE 0 ML IV SCH ×2 (08:46→17:03)
[2020-08-02] MEDS: ACETAMINOPHEN 500 MG TAB PO PRN ×2 (08:51→20:04)
[2020-08-02] MEDS: ceFAZolin 1000MG 1,000 MG/7.5 ML SYR IV SCH ×2 (08:51→20:04)
[2020-08-02] MEDS: ERTAPENEM SODIUM 500 MG in SODIUM CHLORIDE 0.9% 50 ML IV SCH (10:23)
--- NOTE | 2020-08-02 10:28 | Pharmacy Report ---
Pharmacy Glycemic Short Note 2 - Date of Service August 02, 2020 - Glycemic Short BSG Results (Last 24 hours): 08/01/20 08/01/20 08/01/20 11:22 16:14 20:23 Glucose POC Glucose 101 H 116 H 99 08/02/20 08/02/20 07:10 07:30 Glucose 83 POC Glucose 97 OUTPATIENT ANTIDIABETIC REGIMEN: * Lantus 25 units SC BID * HbA1c: 7% (06/24/20) ASSESSMENT: 08/02 * Pt has received 17 units of insulin over the past 24hrs * 10 units of basal with Lantus * 7 units of bolus with NovoLog * BSGs 02-562-788-99-97 mg/dl * AM fasting BSG is still slightly below goal range for inpatient targets at 97 mg/dl. Will continue to taper Lantus to maintain AM fasting BSG 110-140 mg/dl. * Post-prandial BSGs on the low side but consistent - lowering basal insulin will shift this upwards 08/01 * Pt has received 18 units of insulin over the past 24hrs * 13 units of basal with Lantus * 5 units of bolus with NovoLog * BSGs [phone] mg/dl * AM fasting BSG is sightly below goal range for inpatient targets at 94mg/dl. Will slightly decrease basal insulin from 13 to 10 units * Post-prandial BSG elevated prior to dinner due to CHO coverage subtracted off fro lunch when BSG below goal rage at 105mg/dl. Will adjust the low end of the goal range to prevent CHO coverage subtraction. 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
--- NOTE | 2020-08-02 12:54 | Nephrology Progress Note ---
Date of Service August 02, 2020 Assessment & Plan (1) DANIEL (acute kidney injury): DANIEL due to ATN. Granular casts persistent on admission. Non-oliguric. Electrolytes acceptable. No emergent indication for dialysis. Kidney function has been stable since admission. Urine studies demonstrate persistent gross hematuria (possibly from Hess - will need some follow up post discharge). Will follow. Granular casts on urine microscopy consistent with ATN. Medications acceptable. Strongly encourage weaning of gabapentin as tolerated. (2) Anasarca: Continue furosemide to encourage negative fluid balance. Nutritional goals reviewed. Ambulate as able. Treatment of anemia. Gabapentin weaned to 600 mg BID today. Document strict I/O's and check metabolic profile daily while inpatient. (3) CKD (chronic kidney disease): Baseline creatinine 1.5 mg/dL. Microalbuminuria without notable proteinuria. CKD attributed to DKD, obesity, and microvascular disease. CT reviewed today. (4) Hypoalbuminemia: Nutritional goals reviewed. No clear benefit of IV albumin. Continue furosemide to encourage negative fluid balance. Net negative 1.8 L in past 24 hours. Admission and Anticipated Discharge Date Admission Date: July 30, 2020 Subjective Celina was relatively somnolent this AM. She states that she feels well. She denies significant dyspnea. Pain control reasonable. No fevers or chills. Hess draining blood tinged urine with some debris. Review of Systems Review of Systems: All systems reviewed & are unremarkable except as noted in HPI & below Physical Exam Constitutional: well developed, + morbidly obese and + disheveled; no acute di stress Eyes: + anicteric sclerae; no corneal abnormality ENMT: Mouth: no oral mucosal abnormality and oral mucous membranes not dry Neck: normal visual inspection, trachea midline and + thick neck Respiratory: normal respiratory effort Auscultation: lungs clear to auscultation bilaterally and + diminished lung sounds Cardiovascular: Rate/Rhythm: regular rate Heart Sounds: normal S1 and normal S2 Extremities: + edema Gastrointestinal (Abdomen): Percussion/Palpation: abdomen soft; abdomen nontender Musculoskeletal: Extremities: no cyanosis and no clubbing Skin: no lesions and no jaundice Neurologic: Motor/Sensory: no tremor and no asterixis Psychiatric: Orientation: alert and oriented x 3 Results & Data ([facility]) Vital Signs (Past 12 Hours) Vital Signs Temp Pulse Resp BP Pulse Ox 08/02/20 12:16 36.4 C L 69 17 127/71 96 08/02/20 08:21 36.6 C 72 18 143/68 H 97 08/02/20 04:10 36.6 C 74 20 130/70 97 Laboratory Results Laboratory Results - last 24 hr 08/01/20 08/01/20 08/01/20 16:14 18:30 20:23 WBC RBC Hgb Hct MCV MCH MCHC RDW Std Deviation RDW Coeff of Erin Plt Count MPV Immature Gran % (Auto) Neut % (Auto) Lymph % (Auto) Braxton % (Auto) Eos % (Auto) Baso % (Auto) Neut # (Auto) Lymph # (Auto) Braxton # (Auto) Eos # (Auto) Baso # (Auto) Immature Gran # (Auto) Sodium Potassium Chloride Carbon Dioxide Anion Gap BUN Creatinine Est Cr Clr Drug Dosing Est GFR ( Amer) Est GFR (Non-Af Amer) BUN/Creatinine Ratio Glucose POC Glucose 116 H 99 Calcium Total Bilirubin AST ALT Alkaline Phosphatase C-Reactive Protein Total Protein Albumin Globulin Albumin/Globulin Ratio Urine Color Stonewall Urine Appearance Turbid A Urine pH 5.0 Ur Specific Erie 1.013 Urine Protein 1+ H Urine Glucose (UA) Negative Urine Ketones Negative Urine Blood 3+ H Urine Nitrite Negative Urine Bilirubin Negative Urine Urobilinogen Negative Ur Leukocyte Esterase 1+ H Urine WBC (Auto) 1-5 Urine RBC (Auto) >30 H U Hyaline Cast (Auto) 1-5 U Epithel Cells (Auto) 10-20 H Urine Bacteria (Auto) Negative Granular Casts 5-10 H Urine Yeast Budding A 08/02/20 08/02/20 08/02/20 07:10 07:30 07:30 WBC 6.54 RBC 2.76 L Hgb 8.1 L Hct 26.5 L MCV 96.0 MCH 29.3 MCHC 30.6 L RDW Std Deviation 66.2 H RDW Coeff of Erin 18.9 H Plt Count 358 MPV 8.4 Immature Gran % (Auto) 0.8 Neut % (Auto) 72.9 Lymph % (Auto) 12.8 Braxton % (Auto) 11.3 Eos % (Auto) 2.0 Baso % (Auto) 0.2 Neut # (Auto) 4.77 Lymph # (Auto) 0.84 L Braxton # (Auto) 0.74 H Eos # (Auto) 0.13 Baso # (Auto) 0.01 Immature Gran # (Auto) 0.05 H Sodium 137 Potassium 4.3 Chloride 105 Carbon Dioxide 25 Anion Gap 7.0 BUN 57 H Creatinine 2.34 H Est Cr Clr Drug Dosing 25.4 Est GFR ( Amer) 21.9 Est GFR (Non-Af Amer) 18.9 BUN/Creatinine Ratio 24.4 H Glucose 83 POC Glucose 97 Calcium 7.8 L Total Bilirubin 0.4 AST 17 ALT < 6 L Alkaline Phosphatase 72 C-Reactive Protein 13.40 H Total Protein 6.3 L Albumin 1.8 L Globulin 4.5 H Albumin/Globulin Ratio 0.4 L Urine Color Urine Appearance Urine pH Ur Specific Erie Urine Protein Urine Glucose (UA) Urine Ketones Urine Blood Urine Nitrite Urine Bilirubin Urine Urobilinogen Ur Leukocyte Esterase Urine WBC (Auto) Urine RBC (Auto) U Hyaline Cast (Auto) U Epithel Cells (Auto) Urine Bacteria (Auto) Granular Casts Urine Yeast 08/02/20 11:12 WBC RBC Hgb Hct MCV MCH MCHC RDW Std Deviation RDW Coeff of Erin Plt Count MPV Immature Gran % (Auto) Neut % (Auto) Lymph % (Auto) Braxton % (Auto) Eos % (Auto) Baso % (Auto) Neut # (Auto) Lymph # (Auto) Braxton # (Auto) Eos # (Auto) Baso # (Auto) Immature Gran # (Auto) Sodium Potassium Chloride Carbon Dioxide Anion Gap BUN Creatinine Est Cr Clr Drug Dosing Est GFR ( Amer) Est GFR (Non-Af Amer) BUN/Creatinine Ratio Glucose POC Glucose 84 Calcium Total Bilirubin AST ALT Alkaline Phosphatase C-Reactive Protein Total Protein Albumin Globulin Albumin/Globulin Ratio Urine Color Urine Appearance Urine pH Ur Specific Erie Urine Protein Urine Glucose (UA) Urine Ketones Urine Blood Urine Nitrite Urine Bilirubin Urine Urobilinogen Ur Leukocyte Esterase Urine WBC (Auto) Urine RBC (Auto) U Hyaline Cast (Auto) U Epithel Cells (Auto) Urine Bacteria (Auto) Granular Casts Urine Yeast PG Care Time/CCT Total # of Minutes Spent Total Time Spent with Patient: Total time spent is greater than 50% in coordination of care (as documented) at patient's floor/unit and/or counseling patient: Coding Level of Care Code 60665 Subseq Hosp Care Lvl 3 Diagnoses DANIEL (acute kidney injury) N17.9 Anasarca R60.1 CKD (chronic kidney disease) N18.9 Chronic kidney disease stage: unspecified stage Hypoalbuminemia E88.09 (1) CKD (chronic kidney disease) Chronic kidney disease stage: unspecified stage Qualified Code(s): N18.9 - Chronic kidney disease, unspecified
--- NOTE | 2020-08-02 16:16 | Hospitalist Progress Note ---
Date of Service August 02, 2020 Assessment & Plan (1) Acute blood loss anemia: Patient presents with increasing shortness of breath and was found to have a hemoglobin of 6.1 down from 8 previously; also with anasarca and 40 lb weight gain in 1 month She has a history of acute blood loss anemia from admission several weeks ago after having large left gluteal hematoma. She has been receiving therapeutic dose Lovenox injections for her paroxysmal atrial fibrillation since discharge from [facility] weeks ago She has pain at the hematoma site and due to her morbid obesity, it is difficult to tell if this is enlarged from previous but this is most likely source of continued blood loss CT abdomen/pelvis without evidence of bleeding Stool was guaiac negative reportedly She is hemodynamically stable Was transfused 2 units PRBCs upon admission and hemoglobin was up to 8.1 and the n dropped down again on repeat CBC to 7.7 on 07/31 She was given 1 more unit of PRBCs on the evening of 07/31 Hemoglobin on 08/01 up to 8.8 and now back down slightly to 8.1 -Discontinued Lovenox and would not recommend restarting this due to to severe bleeding episodes in the last month -Continue to hold home aspirin -Follow calcium levels and replace as needed-was given 1 g of IV gluconate on 08/01 for low ionized calcium as this is a clotting factor -Follow CBC daily (2) Acute respiratory failure with hypoxia: Secondary to acute on chronic diastolic CHF, perhaps some residual effect from previous Covid-19 pneumonia Chest x-ray here with evidence of CHF, bibasilar opacities that are likely atelectasis versus pneumonitis, and small pleural effusions -Diuresing with IV Lasix -Check echocardiogram limited to review EF and for wall motion abnormalities -Follow troponin in the morning although doubt ongoing ischemia, ECG normal at the time of admission -Continue supplemental O2 to keep pulse ox greater than 92% -With significant tachypnea at rest-patient willing to trial CPAP at nighttime (3) Dyspnea: As above Continues to be significant with tachypnea at rest Mild hypoxia and (4) Anasarca: With massive volume overload and anasarca on examination secondary to acute on chronic diastolic CHF Her weight is up 19 kg in the last 4 weeks when she arrived She has severe hypoalbuminemia with an albumin of 1.3 and acute kidney injury as below when she arrived -Received 2 days worth of IV albumin and IV Lasix twice daily-no further albumin needed -Continue IV Lasix but increased to 80 mg IV twice daily on 08/01 -Consult nephrology for management given acute kidney injury, ATN, and need for diuresis in case renal function worsens -Follow daily weights, I's and O's, low-sodium diet -Follow renal function with diuresis-of note patient would not want dialysis as we discussed -Consult dietitian for improved nutritional status recommendations (5) Aspiration into airway: Had an episode of aspiration while eating dinner on the evening of 07/31 which caused tachypnea, upper respiratory gurgling and cough This resolved with coughing Chest x-ray unchanged from previous Is on minced and moist diet Consult speech therapy appreciated-no evidence of aspiration on bedside swallow Developed low-grade fevers in the morning of 08/01 which are now resolved -Check blood cultures-no growth to date; procalcitonin is normal -Continue ertapenem in case of aspiration pneumonitis (6) CHF (congestive heart failure): Acute on chronic diastolic CHF with anasarca as above Likely precipitated by prolonged hospital stay with multiple blood transfusions and IV fluids given Diuresing as above (7) Hematoma: Left gluteus and left lower abdomen Exacerbated by therapeutic Lovenox injections Was present on previous hospitalization as well Transfused as above (8) Hypoalbuminemia: Severe, albumin 1.3 upon admission and received IV albumin in setting of acute on chronic diastolic CHF and anasarca, now improved to 1.6 Dietary consult (9) CKD (chronic kidney disease): Acute kidney failure on CKD stage III secondary to ATN UA with granular casts upon admission and again on repeat urinalysis Creatinine has been down to 1.2-1.5 on recent labs and is now up to 2.3 in the setting of IV diuresis Potassium is borderline high-discontinued home oral potassium supplement and this is now improved She has making plenty of urine Continue diuresis as above with IV Lasix Follow BMP in the morning -Avoid nephrotoxins-was on NSAIDs on home medication list-discontinue these -Have also decreased gabapentin down to 600 mg p.o. twice daily -renally dose meds when appropriate Appreciate nephrology consultation (10) Hyperlipidemia: Continue atorvastatin (11) Diabetes mellitus, type 2: Hemoglobin A1c well controlled at 7.0% in 05/2020 consult glycemic control placed at time of admission Continue NovoLog and Lantus Continue diabetic diet (12) Hypertension: Blood pressure stable Continue Toprol-XL -Continue to monitor (13) MSSA bacteremia: With a history of such from 1 month ago as well as lumbar spinal abscess required interventional radiology for drainage -Will continue cefazolin through 6 week treatment ends on 08/16 [address] line in place in the right upper extremity Was supposed to follow-up in the next 1 to 2 weeks with infectious disease To follow CBC, CMP, CRP once weekly while on antibiotics With low-grade fevers here as above thought to be more likely related to aspi ration pneumonitis, but repeat blood cultures-no growth to date (14) Atrial fibrillation: With a history of rapid atrial fibrillation during recent previous hospitalization in the setting of severe illness w/ Covid-19 pneumonia, acute blood loss anemia, and MSSA bacteremia lumbar spinal abscess At that time of that hospitalization, she required DC cardioversion for unstable rapid atrial fibrillation Remains in sinus rhythm here continue amiodarone 200 mg p.o. twice daily Continue Toprol-XL -Continue monitoring on telemetry (15) Asthma: With wheezing here which seems more upper airway related to aspiration-now resolved -Continue albuterol rescue inhaler as needed -Continue Fluticasone/Vilanterol (16) Anxiety: Chronic -Continue Citalopram (17) Microscopic hematuria: Has greater than 30 RBCs per high-power field on each urinalysis Needs follow-up UA after discharge and follow-up nephrology (18) DVT prophylaxis: Holding therapeutic Lovenox for acute blood loss anemia as above Disposition-continued stay on PCU Patient wishes to be a DNI, but still wants CPR in the setting of cardiac arrest without being put on mechanical ventilation Case discussed with daughter at the bedside Admission and Anticipated Discharge Date Admission Date: July 30, 2020 Subjective Patient remains quite short of breath and is tachypneic at rest. Her daughter i s at the bedside and with some convincing from her daughter, patient is agreeable to trial of CPAP for overnight. Patient reports feeling quite tired. She does not feel well. She is eating and drinking. Patient reports that she definitely would not want to go on dialysis if her renal function worsened Telemetry with normal sinus rhythm, PACs, rates in the 60s to 70s. I did discuss her case with nephrology today. Review of Systems Review of Systems: All systems reviewed & are unremarkable except as noted in HPI & below Physical Exam Constitutional: WD/WN, vitals as above + ill appearing and + morbidly obese Eyes: + anicteric sclerae Neck: trachea midline, no thyromegaly Respiratory: + tachypneic Auscultation: + crackles (At lower lung sampson bilaterally); no rhonchi and no wheezes Cardiovascular: Rate/Rhythm: regular rate and regular rhythm Heart Sounds: no murmur Extremities: + edema (Anasarca with 3-4+ in all extremities although slightly improved in hands) Chest (Breasts): Chest: normal inspection of chest Gastrointestinal (Abdomen): normal bowel sounds, soft, nontender, no hepatosplenomegaly Musculoskeletal: Extremities: no cyanosis and no clubbing Skin: no rashes, warm and dry + ulcer (Right lateral chest wall 3 x 4 cm, no erythema) Trauma: + hematoma (Left lower abdomen into left gluteus with very large palpable hematoma) Neurologic: moves all extremities and awake; no focal motor deficits Psychiatric: A+Ox3, euthymic affect Genitourinary: + abnormal external appearance (Hess catheter in place draining loraine urine with sediment) Results & Data Results & Data ([facility]) Vital Signs (Past 12 Hours) Vital Signs Temp Pulse Resp BP Pulse Ox 08/02/20 12:16 36.4 C L 69 17 127/71 96 08/02/20 08:21 36.6 C 72 18 143/68 H 97 Laboratory Results 08/02/20 07:30 08/02/20 07:30 PG Care Time/CCT Total # of Minutes Spent Total Time Spent with Patient: Total time spent is greater than 50% in co ordination of care (as documented) at patient's floor/unit and/or counseling patient: Coding Level of Care Code 42682 Subseq Hosp Care Lvl 3 Diagnoses Acute blood loss anemia D62 Acute respiratory failure with hypoxia J96.01 Dyspnea R06.00 Anasarca R60.1 Aspiration into airway T17.908A CHF (congestive heart failure) I50.9 Heart failure chronicity: unspecified Heart failure type: unspecified Hematoma T14.8XXA Hypoalbuminemia E88.09 CKD (chronic kidney disease) N18.9 Chronic kidney disease stage: unspecified stage Hyperlipidemia E78.5 Diabetes mellitus, type 2 E11.9 Hypertension I10 MSSA bacteremia R78.81; B95.61 Atrial fibrillation I48.91 Asthma J45.909 Anxiety F41.9 Microscopic hematuria R31.29 DVT prophylaxis Z29.9 (1) CHF (congestive heart failure) Heart failure chronicity: unspecified Heart failure type: unspecified Qualified Code(s): I50.9 - Heart failure, unspecified (2) CKD (chronic kidney disease) Chronic kidney disease stage: unspecified stage Qualified Code(s): N18.9 - Chronic kidney disease, unspecified
[2020-08-02] MEDS: CITALOPRAM 40 MG TAB PO SCH (20:05)
[2020-08-02] MEDS: ATORVASTATIN 40 MG TAB PO SCH (20:05)
[2020-08-02] MEDS: QUEtiapine FUMARATE 25 MG TABLET PO SCH (20:06)
[2020-08-03] MEDS ORDERED: oxyCODONE HCL IR 5 MG TAB (IMMEDIATE RELEASE) PO STA (01:10)
[2020-08-03] MEDS: ACETAMINOPHEN 500 MG TAB PO PRN (06:03)
[2020-08-03 06:17] LABS: Basophils # (auto) 0.02 K/uL (0-0.2); Basophils % (auto) 0.3 %; Eosinophils # (auto) 0.15 K/uL (0-0.5); Eosinophils % (auto) 2.4 %; Hematocrit (blood only) 26.9 % (37-47); Hemoglobin 8.3 g/dL (12.0-16.0); Immature Granulocytes # (auto) 0.06 K/uL (0.00-0.02); Lymphocytes # (auto) 0.97 K/uL (1.2-3.4); Lymphocytes % (auto) 15.4 %; Mean Corpuscular Hemoglobin 29.5 pg (25-34); Mean Corpuscular Hgb Conc 30.9 g/dL (32-36); Mean Corpuscular Volume 95.7 fL (80-100); Mean Platelet Volume 8.6 fL (7.4-10.4); Monocytes # (auto) 0.64 K/uL (0.11-0.59); Monocytes % (auto) 10.2 %; Neutrophils # (auto) 4.46 K/uL (1.4-6.5); Neutrophils % (auto) 70.7 %; Platelet Count 355 K/uL (130-400); RDW Coefficient of Variation 18.5 % (11.5-14.5); Red Blood Count 2.81 M/uL (4.2-5.4)
[2020-08-03 06:43] LABS: BUN Creatinine Ratio 24.8 (10-20); Blood Urea Nitrogen 57 mg/dl (7-18); Calcium 7.7 mg/dl (8.5-10.1); Carbon Dioxide 27 mmol/L (21-32); Chloride 107 mmol/L (98-107); Est GFR (African American) 22.2 ml/min; Est GFR (Non-African American) 19.2 ml/min; Glucose 116 mg/dl (70-99); Magnesium 1.8 mg/dl (1.8-2.4); Potassium 4.2 mmol/L (3.5-5.1); Sodium 139 mmol/L (136-145)
[2020-08-03 06:48] LABS: Phosphorus 3.9 mg/dl (2.5-4.9); Troponin I < 0.015 ng/ml (0-0.045)
[2020-08-03] MEDS: DOCUSATE SODIUM 100 MG CAP PO SCH (08:13)
[2020-08-03] MEDS: GABAPENTIN 600 MG TAB PO SCH ×2 (08:13→20:58)
[2020-08-03] MEDS: ceFAZolin 1000MG 1,000 MG/7.5 ML SYR IV SCH ×2 (08:13→20:58)
[2020-08-03] MEDS: AMIODARONE 200 MG TAB PO SCH ×2 (08:13→20:58)
[2020-08-03] MEDS: FUROSEMIDE 80 MG in SYRINGE 0 ML IV SCH ×2 (08:13→17:28)
[2020-08-03] MEDS: INSULIN GLARGINE SOLOSTAR 100 UNITS/ML 3 ML PEN SC SCH (08:13)
[2020-08-03] MEDS: PANTOprazole 40 MG TAB PO SCH (08:13)
[2020-08-03] MEDS: METOPROLOL SUCC 50MG EXT REL TAB PO SCH (08:13)
[2020-08-03] MEDS: INSULIN ASPART 100 UNITS/ML 3 ML PEN SC SCH ×4 (08:14→21:29)
[2020-08-03] MEDS ORDERED: MAGNESIUM SULFATE / D5W 1 GM/100 ML BAG IV ONE (10:00)
--- NOTE | 2020-08-03 11:16 | Nephrology Progress Note ---
Date of Service August 03, 2020 Assessment & Plan (1) DANIEL (acute kidney injury): * DANIEL due to recent bacteremia (MSSA w/ spinal abscess), anemia (gluteal hematoma) - likely ATN * Cr has been stable at 2.3 since admission. Patient remains nonoliguric (net - 1.7 L overnight). Electrolyte balance is acceptable. No acute indication for HD * Monitor PRP (2) CKD (chronic kidney disease): * Baseline creatinine 1.5 mg/dL * CKD attributed to DKD, obesity, and microvascular disease. + microalbuminuria (3) Anasarca: * Serum albumin 1.8 w/ 3rd spacing volume * Continue furosemide 80 mg IV BID w/ target 1L negative fluid balance/day (4) Anemia: * Gluteal hematoma - has required blood transfusions this admission Admission and Anticipated Discharge Date Admission Date: July 30, 2020 Subjective Mrs. Mcbride was seen & examined in her hospital room this morning. She c/o LE swelling but denies fever, angina or dyspnea Review of Systems Constitutional: + weakness; no fever Eyes: no problem reported Ear, Nose, Mouth, Throat: no problem reported Respiratory: no dyspnea Cardiovascular: + edema; no chest pain and no palpitations Gastrointestinal: no abdominal pain, no nausea and no diarrhea/loose stools Neurologic: no confusion Physical Exam Constitutional: + overweight; not in distress Eyes: PERRL, conjunctivae normal, anicteric sclerae ENMT: external ear and nose normal, oropharynx normal Neck: trachea midline, no thyromegaly Respiratory: normal respiratory effort, lungs clear to auscultation Cardiovascular: Rate/Rhythm: regular rate and regular rhythm Extremities: + edema (tense bilateral pretibial edema) Gastrointestinal (Abdomen): normal bowel sounds, soft, nontender, no hepatosplenomegaly Musculoskeletal: Extremities: no cyanosis Neurologic: awake; not confused Results & Data ([facility]) Vital Signs (Past 12 Hours) Vital Signs Temp Pulse Resp BP Pulse Ox 08/03/20 08:17 36.7 C 69 22 139/75 99 08/03/20 03:28 36.6 C 67 19 117/72 99 Laboratory Tests 08/02/20 08/03/20 08/03/20 07:30 06:01 06:01 WBC 6.30 Hgb 8.3 L Hct 26.9 L Plt Count 355 Sodium 139 Potassium 4.2 Chloride 107 Carbon Dioxide 27 BUN 57 H Creatinine 2.31 H Glucose 116 H Calcium 7.7 L Albumin 1.8 L PG Care Time/CCT Total # of Minutes Spent Total Time Spent with Patient: Total time spent is greater than 50% in coordination of care (as documented) at patient's floor/unit and/or counseling patient: Coding Level of Care Code 50541 Subseq Hosp Care Lvl 3 Diagnoses DANIEL (acute kidney injury) N17.9 CKD (chronic kidney disease) N18.9 Chronic kidney disease stage: unspecified stage Anasarca R60.1 Anemia D64.9 (1) CKD (chronic kidney disease) Chronic kidney disease stage: unspecified stage Qualified Code(s): N18.9 - Chronic kidney disease, unspecified
[2020-08-03] MEDS: ERTAPENEM SODIUM 500 MG in SODIUM CHLORIDE 0.9% 50 ML IV SCH (11:30)
--- NOTE | 2020-08-03 12:12 | Hospitalist Progress Note ---
Date of Service August 03, 2020 Assessment & Plan (1) Acute blood loss anemia: Patient presents with increasing shortness of breath and was found to have a hemoglobin of 6.1 down from 8 previously; also with anasarca and 40 lb weight gain in 1 month She has a history of acute blood loss anemia from admission several weeks ago after having large left gluteal hematoma. She has been receiving therapeutic dose Lovenox injections for her paroxysmal atrial fibrillation since discharge from [facility] 2 weeks ago She has pain at the hematoma site and due to her morbid obesity, it is difficult to tell if this is enlarged from previous but this is most likely source of continued blood loss CT abdomen/pelvis without evidence of bleeding Stool was guaiac negative reportedly Remains hemodynamically stable Was transfused 2 units PRBCs upon admission and hemoglobin was up to 8.1 and th en dropped down again on repeat CBC to 7.7 on 07/31 She was given 1 more unit of PRBCs on the evening of 07/31 Hemoglobin on 08/01 up to 8.8 and then back down slightly to 8.1 On 08/03, hg up to 8.3, stable from previous -Discontinued Lovenox and would not recommend restarting this due to to severe bleeding episodes in the last month -Continue to hold home aspirin -Follow calcium levels and replace as needed-was given 1 g of IV gluconate on 08/01 for low ionized calcium as this is a clotting factor -Follow CBC daily -consider IV iron infusions but want to avoid excess IV fluid for now (2) Acute respiratory failure with hypoxia: Secondary to acute on chronic diastolic CHF, perhaps some residual effect from previous Covid-19 pneumonia Chest x-ray here with evidence of CHF, bibasilar opacities that are likely atelectasis versus pneumonitis, and small pleural effusions Repeat CXR 08/03 pending Slightly improved, weight still shows same as admission, but I/Os are accurate with Hess in and she is net negative 5.9 L Troponin negative, although doubt ongoing ischemia, ECG normal at the time of admission Some anxiety component -Diuresing with IV Lasix -Check echocardiogram limited to review EF and for wall motion abnormalities- pending -Continue supplemental O2 to keep pulse ox greater than 92% -With significant tachypnea at rest-patient willing to trial CPAP at nighttime- tried and cannot tolerate (3) Dyspnea: As above Continues to be significant with tachypnea at rest Mild hypoxia (4) Anasarca: With massive volume overload and anasarca on examination secondary to acute on chronic diastolic CHF Her weight is up 19 kg in the last 4 weeks when she arrived She has severe hypoalbuminemia with an albumin of 1.3 and acute kidney injury as below when she arrived -Received 2 days worth of IV albumin and IV Lasix twice daily-no further albumin needed -Continue IV Lasix but increased to 80 mg IV twice daily on 08/01 -diuresing well as above but has a long way to go -Consult nephrology for management given acute kidney injury, ATN, and need for diuresis in case renal function worsens -Follow daily weights, I's and O's, low-sodium diet -Follow renal function with diuresis-of note patient would not want dialysis as we discussed -Consult dietitian for improved nutritional status recommendations -given asymmetry of LE edema--> R>L--> check Dopplers to r/o DVT (5) Aspiration into airway: Had an episode of aspiration while eating dinner on the evening of 07/31 which caused tachypnea, upper respiratory gurgling and cough This resolved with coughing Chest x-ray unchanged from previous Is on minced and moist diet Consult speech therapy appreciated-no evidence of aspiration on bedside swallow Developed low-grade fevers in the morning of 08/01 which are now resolved -Check blood cultures-no growth to date x 48 hrs--> dc ertapenem -procalcitonin is normal (6) CHF (congestive heart failure): Acute on chronic diastolic CHF with anasarca as above Likely precipitated by prolonged hospital stay with multiple blood transfusions and IV fluids given Diuresing as above (7) Hematoma: Left gluteus and left lower abdomen Exacerbated by therapeutic Lovenox injections Was present on previous hospitalization as well Transfused as above (8) Hypoalbuminemia: Severe, albumin 1.3 upon admission and received IV albumin in setting of acute on chronic diastolic CHF and anasarca, now improved slightly Dietary consult (9) CKD (chronic kidney disease): Acute kidney failure on CKD stage III secondary to ATN UA with granular casts upon admission and again on repeat urinalysis Creatinine has been down to 1.2-1.5 on recent labs and is now up to 2.3 in the setting of IV diuresis Potassium is borderline high-discontinued home oral potassium supplement and this is now improved She has making plenty of urine Continue diuresis as above with IV Lasix Follow BMP in the morning -Avoid nephrotoxins-was on NSAIDs on home medication list-discontinue these -Have also decreased gabapentin down to 600 mg p.o. twice daily -renally dose meds when appropriate Appreciate nephrology consultation (10) Hyperlipidemia: Continue atorvastatin (11) Diabetes mellitus, type 2: Hemoglobin A1c well controlled at 7.0% in 05/2020 consult glycemic control placed at time of admission Continue NovoLog and Lantus Continue diabetic diet (12) Hypertension: Blood pressure stable Continue Toprol-XL -Continue to monitor (13) MSSA bacteremia: With a history of such from 1 month ago as well as lumbar spinal abscess required interventional radiology for drainage -Will continue cefazolin through 6 week treatment ends on 08/16 [address] line in place in the right upper extremity Was supposed to follow-up in the next 1 to 2 weeks with infectious disease To follow CBC, CMP, CRP once weekly while on antibiotics With low-grade fevers here as above thought to be more likely related to aspiration pneumonitis, but repeat blood cultures-no growth to date (14) Atrial fibrillation: With a history of rapid atrial fibrillation during recent previous hospi talization in the setting of severe illness w/ Covid-19 pneumonia, acute blood loss anemia, and MSSA bacteremia lumbar spinal abscess At that time of that hospitalization, she required DC cardioversion for unstable rapid atrial fibrillation Remains in sinus rhythm here continue amiodarone 200 mg p.o. twice daily Continue Toprol-XL -Continue monitoring on telemetry (15) Asthma: With wheezing here which seems more upper airway related to aspiration-now resolved but has some fainter lower wheezes today -Continue albuterol rescue inhaler as needed -Continue Fluticasone/Vilanterol (16) Anxiety: Chronic -Continue Citalopram (17) Microscopic hematuria: Has greater than 30 RBCs per high-power field on each urinalysis Needs follow-up UA after discharge and follow-up nephrology (18) Nausea: may be related to oxycodone? add zofran prn (19) Lower back pain: chronic, s/o recent lumbar spinal abscess drainge decreased gabapentin fo renal dosing add oxycodone prn tylenol prn (20) DVT prophylaxis: Holding therapeutic Lovenox for acute blood loss anemia as above Disposition-continued stay on PCU Patient wishes to be a DNI, but still wants CPR in the setting of cardiac arrest without being put on mechanical ventilation Admission and Anticipated Discharge Date Admission Date: July 30, 2020 Subjective Pt feels her SOB is slightly improved. She was only able to tolerate the CPAP for 30 min-1 hour last evening and does not feel she can try it again. She also c/o pain in her lower back. She received oxycodone overnight and did well with that. Also has some nausea today and ate very little for lunch Tele with NSR, rates 60-70s Review of Systems Review of Systems: All systems reviewed & are unremarkable except as noted in HPI & below Physical Exam Constitutional: WD/WN, vitals as above + ill appearing and + morbidly obese Eyes: + anicteric sclerae Neck: trachea midline, no thyromegaly Respiratory: + tachypneic (but only after asking if she is SOB,?anxiety) Auscultation: + crackles (At lower lung sampson bilaterally) and + wheezes (a few scattered exp wheezes); no rhonchi Cardiovascular: Rate/Rhythm: regular rate and regular rhythm Heart Sounds: no murmur Extremities: + edema (Anasarca with 3-4+ in all extremities, RLE>LLE) Chest (Breasts): Chest: normal inspection of chest Gastrointestinal (Abdomen): normal bowel sounds, soft, nontender, no hepatosplenomegaly Musculoskeletal: Extremities: no cyanosis and no clubbing Skin: no rashes, warm and dry + ulcer (Right lateral chest wall 3 x 4 cm, no erythema) Trauma: + hematoma (Left lower abdomen into left gluteus with very large palpable hematoma) Neurologic: moves all extremities and awake; no focal motor deficits Psychiatric: A+Ox3, euthymic affect Genitourinary: + abnormal external appearance (Hess catheter in place draining loraine urine with sediment) Results & Data Results & Data ([facility]) Vital Signs (Past 12 Hours) Vital Signs Temp Pulse Resp BP Pulse Ox 08/03/20 08:17 36.7 C 69 22 139/75 99 08/03/20 03:28 36.6 C 67 19 117/72 99 Laboratory Results 08/03/20 08/03/20 08/03/20 Range/Units 11:29 06:01 06:01 WBC 6.30 (4.8-10.8) K/uL RBC 2.81 L (4.2-5.4) M/uL Hgb 8.3 L (12.0-16.0) g/dL Hct 26.9 L (37-47) % MCV 95.7 (80-100) fL MCH 29.5 (25-34) pg MCHC 30.9 L (32-36) g/dL RDW Std Deviation 65.0 H (36.4-46.3) fL RDW Coeff of Erin 18.5 H (11.5-14.5) % Plt Count 355 (130-400) K/uL MPV 8.6 (7.4-10.4) fL Immature Gran % (Auto) 1.0 % Neut % (Auto) 70.7 % Lymph % (Auto) 15.4 % Ransom % (Auto) 10.2 % Eos % (Auto) 2.4 % Baso % (Auto) 0.3 % Neut # (Auto) 4.46 (1.4-6.5) K/uL Lymph # (Auto) 0.97 L (1.2-3.4) K/uL Ransom # (Auto) 0.64 H (0.11-0.59) K/uL Eos # (Auto) 0.15 (0-0.5) K/uL Baso # (Auto) 0.02 (0-0.2) K/uL Immature Gran # (Auto) 0.06 H (0.00-0.02) K/uL Sodium 139 (136-145) mmol/L Potassium 4.2 (3.5-5.1) mmol/L Chloride 107 (98-107) mmol/L Carbon Dioxide 27 (21-32) mmol/L Anion Gap 5.0 (3-11) BUN 57 H (7-18) mg/dl Creatinine 2.31 H (0.6-1.2) mg/dl Est Cr Clr Drug Dosing 26.0 ml/min Est GFR ( Amer) 22.2 ml/min Est GFR (Non-Af Amer) 19.2 ml/min BUN/Creatinine Ratio 24.8 H (10-20) Glucose 116 H (70-99) mg/dl POC Glucose 153 H (70-99) mg/dl Calcium 7.7 L (8.5-10.1) mg/dl Phosphorus 3.9 (2.5-4.9) mg/dl Magnesium 1.8 (1.8-2.4) mg/dl Troponin I < 0.015 (0-0.045) ng/ml Crossmatch 08/02/20 08/02/20 07/30/20 Range/Units 20:08 16:26 13:23 WBC (4.8-10.8) K/uL RBC (4.2-5.4) M/uL Hgb (12.0-16.0) g/dL Hct (37-47) % MCV (80-100) fL MCH (25-34) pg MCHC (32-36) g/dL RDW Std Deviation (36.4-46.3) fL RDW Coeff of Erin (11.5-14.5) % Plt Count (130-400) K/uL MPV (7.4-10.4) fL Immature Gran % (Auto) % Neut % (Auto) % Lymph % (Auto) % Ransom % (Auto) % Eos % (Auto) % Baso % (Auto) % Neut # (Auto) (1.4-6.5) K/uL Lymph # (Auto) (1.2-3.4) K/uL Ransom # (Auto) (0.11-0.59) K/uL Eos # (Auto) (0-0.5) K/uL Baso # (Auto) (0-0.2) K/uL Immature Gran # (Auto) (0.00-0.02) K/uL Sodium (136-145) mmol/L Potassium (3.5-5.1) mmol/L Chloride (98-107) mmol/L Carbon Dioxide (21-32) mmol/L Anion Gap (3-11) BUN (7-18) mg/dl Creatinine (0.6-1.2) mg/dl Est Cr Clr Drug Dosing ml/min Est GFR ( Amer) ml/min Est GFR (Non-Af Amer) ml/min BUN/Creatinine Ratio (10-20) Glucose (70-99) mg/dl POC Glucose 177 H 104 H (70-99) mg/dl Calcium (8.5-10.1) mg/dl Phosphorus (2.5-4.9) mg/dl Magnesium (1.8-2.4) mg/dl Troponin I (0-0.045) ng/ml Crossmatch See Detail PG Care Time/CCT Total # of Minutes Spent Total Time Spent with Patient: Total time spent is greater than 50% in coordination of care (as documented) at patient's floor/unit and/or counseling patient: Coding Level of Care Code 19967 Subseq Hosp Care Lvl 3 Diagnoses Acute blood loss anemia D62 Acute respiratory failure with hypoxia J96.01 Dyspnea R06.00 Anasarca R60.1 Aspiration into airway T17.908A CHF (congestive heart failure) I50.9 Heart failure chronicity: unspecified Heart failure type: unspecified Hematoma T14.8XXA Hypoalbuminemia E88.09 CKD (chronic kidney disease) N18.9 Chronic kidney disease stage: unspecified stage Hyperlipidemia E78.5 Diabetes mellitus, type 2 E11.9 Hypertension I10 MSSA bacteremia R78.81; B95.61 Atrial fibrillation I48.91 Asthma J45.909 Anxiety F41.9 Microscopic hematuria R31.29 Nausea R11.0 Lower back pain M54.5 DVT prophylaxis Z29.9 (1) CHF (congestive heart failure) Heart failure chronicity: unspecified Heart failure type: unspecified Qualified Code(s): I50.9 - Heart failure, unspecified (2) CKD (chronic kidney disease) Chronic kidney disease stage: unspecified stage Qualified Code(s): N18.9 - Chronic kidney disease, unspecified
[2020-08-03] MEDS ORDERED: ONDANSETRON INJ 2 MG/ML 2 ML VIAL IV PRN (12:16)
--- NOTE | 2020-08-03 12:32 | XCELERA ---
[id number]
--- NOTE | 2020-08-03 14:06 | Ultrasound Report ---
BILATERAL LOWER EXTREMITY VENOUS DOPPLER HISTORY: Lower extremity edema. severe edema,r/o DVT COMPARISON STUDY: None. FINDINGS: There is normal compressibility, flow, and augmentation within the bilateral lower extremit y deep venous systems. IMPRESSION: No DVT within the right or left lower extremity. ACT 112: Negative or not required by law. Electronically signed by: Ariel Carrillo M.D. 08/03/2020 2:05 PM
[2020-08-03] MEDS: CITALOPRAM 40 MG TAB PO SCH (20:58)
[2020-08-03] MEDS: QUEtiapine FUMARATE 25 MG TABLET PO SCH (20:58)
[2020-08-03] MEDS: ATORVASTATIN 40 MG TAB PO SCH (21:00)
[2020-08-03] MEDS: oxyCODONE HCL IR 5 MG TAB (IMMEDIATE RELEASE) PO PRN (21:10)
[2020-08-04 04:43] LABS: Hematocrit (blood only) 27.2 % (37-47); Hemoglobin 8.5 g/dL (12.0-16.0); Mean Corpuscular Hemoglobin 29.5 pg (25-34); Mean Corpuscular Hgb Conc 31.3 g/dL (32-36); Mean Corpuscular Volume 94.4 fL (80-100); Mean Platelet Volume 8.5 fL (7.4-10.4); Platelet Count 328 K/uL (130-400); RDW Standard Deviation 62.3 fL (36.4-46.3); Red Blood Count 2.88 M/uL (4.2-5.4); White Blood Count 6.97 K/uL (4.8-10.8)
[2020-08-04 05:04] LABS: Albumin Level 1.7 gm/dl (3.4-5.0); BUN Creatinine Ratio 25.7 (10-20); Creatinine Clr Calc Pharmacy 26.6 ml/min; Est GFR (African American) 22.8 ml/min; Est GFR (Non-African American) 19.7 ml/min
[2020-08-04] MEDS: ACETAMINOPHEN 500 MG TAB PO PRN ×2 (08:31→20:23)
[2020-08-04] MEDS: AMIODARONE 200 MG TAB PO SCH ×2 (08:31→20:14)
[2020-08-04] MEDS: ceFAZolin 1000MG 1,000 MG/7.5 ML SYR IV SCH ×2 (08:31→20:14)
[2020-08-04] MEDS: FUROSEMIDE 80 MG in SYRINGE 0 ML IV SCH ×2 (08:31→17:36)
[2020-08-04] MEDS: DOCUSATE SODIUM 100 MG CAP PO SCH (08:32)
[2020-08-04] MEDS: INSULIN GLARGINE SOLOSTAR 100 UNITS/ML 3 ML PEN SC SCH (08:32)
[2020-08-04] MEDS: METOPROLOL SUCC 50MG EXT REL TAB PO SCH (08:32)
[2020-08-04] MEDS: PANTOprazole 40 MG TAB PO SCH (08:32)
[2020-08-04] MEDS: INSULIN ASPART 100 UNITS/ML 3 ML PEN SC SCH ×4 (08:33→22:48)
[2020-08-04] MEDS: GABAPENTIN 600 MG TAB PO SCH ×2 (10:36→20:15)
--- NOTE | 2020-08-04 11:25 | Nephrology Progress Note ---
Date of Service August 04, 2020 Assessment & Plan (1) DANIEL (acute kidney injury): * DANIEL due to recent bacteremia (MSSA w/ spinal abscess), anemia (gluteal hematoma) - likely ATN * Cr has been stable at 2.3 since admission. Patient remains nonoliguric (net - 1.3 L overnight, net -7.3 L since admission? Weight essentially unchanged?). Electrolyte balance is acceptable. No acute indication for HD * Monitor PRP (2) CKD (chronic kidney disease): * Baseline creatinine 1.5 mg/dL * CKD attributed to DKD, obesity, and microvascular disease. + microalbuminuria (3) Anasarca: * Serum albumin 1.8 w/ 3rd spacing volume * Continue furosemide 80 mg IV BID w/ target 1L negative fluid balance/day (4) Anemia: * Gluteal hematoma - has required blood transfusions this admission * Will check iron studies (5) Right heart failure: * Echocardiogram 08/03/20: LVEF 55-60%, mod MR, RVSP 30-40 mmHg, dilated IVC Admission and Anticipated Discharge Date Admission Date: July 30, 2020 Subjective Mrs. Mcbride was seen & examined in her hospital room this morning. She c/o swelling of the arms and legs but denies fever, angina or dyspnea Review of Systems Constitutional: + weakness; no fever Eyes: no problem reported Ear, Nose, Mouth, Throat: no problem reported Respiratory: no dyspnea Cardiovascular: + edema; no chest pain and no palpitations Gastrointestinal: no abdominal pain, no nausea and no diarrhea/loose stools Neurologic: no confusion Physical Exam Constitutional: + overweight; not in distress Eyes: PERRL, conjunctivae normal, anicteric sclerae ENMT: external ear and nose normal, oropharynx normal Neck: trachea midline, no thyromegaly Respiratory: normal respiratory effort, lungs clear to auscultation Cardiovascular: Rate/Rhythm: regular rate and regular rhythm Extremities: + edema (tense bilateral pretibial edema, 2+ dependent edema of the arms) Gastrointestinal (Abdomen): normal bowel sounds, soft, nontender, no hepatosplenomegaly Musculoskeletal: Extremities: no cyanosis Neurologic: awake; not confused Results & Data ([facility]) Vital Signs (Past 12 Hours) Vital Signs Temp Pulse Pulse Resp BP Pulse Ox 08/04/20 08:00 76 08/04/20 07:51 36.5 C 75 19 135/77 95 06/05/21 23:48 37.0 C 75 20 125/68 92 Laboratory Tests 08/04/20 08/04/20 04:25 04:25 WBC 6.97 Hgb 8.5 L Hct 27.2 L Plt Count 328 Sodium 138 Potassium 4.0 Chloride 106 Carbon Dioxide 26 BUN 58 H Creatinine 2.26 H Glucose 107 H Calcium 7.0 L Albumin 1.7 L PG Care Time/CCT Total # of Minutes Spent Total Time Spent with Patient: Total time spent is greater than 50% in coordination of care (as documented) at patient's floor/unit and/or counseling patient: Coding Level of Care Code 17918 Subseq Hosp Care Lvl 3 Diagnoses DANIEL (acute kidney injury) N17.9 CKD (chronic kidney disease) N18.9 Chronic kidney disease stage: unspecified stage Anasarca R60.1 Anemia D64.9 Right heart failure I50.810 (1) CKD (chronic kidney disease) Chronic kidney disease stage: unspecified stage Qualified Code(s): N18.9 - Chronic kidney disease, unspecified
--- NOTE | 2020-08-04 15:47 | Hospitalist Progress Note ---
Date of Service August 04, 2020 Assessment & Plan (1) Acute blood loss anemia: Patient presents with increasing shortness of breath and was found to have a hemoglobin of 6.1 down from 8 previously; also with anasarca and 40 lb weight gain in 1 month She has a history of acute blood loss anemia from admission several weeks ago after having large left gluteal hematoma. She has been receiving therapeutic dose Lovenox injections for her paroxysmal atrial fibrillation since discharge from [facility] 2 weeks ago She has pain at the hematoma site and due to her morbid obesity, it is difficult to tell if this is enlarged from previous but this is most likely source of continued blood loss CT abdomen/pelvis without evidence of bleeding Stool was guaiac negative reportedly Remains hemodynamically stable Was transfused 2 units PRBCs upon admission and hemoglobin was up to 8.1 and th en dropped down again on repeat CBC to 7.7 on 07/31 She was given 1 more unit of PRBCs on the evening of 07/31 Hemoglobin on 08/01 up to 8.8 and then back down slightly to 8.1 On 08/03, hg up to 8.3, stable from previous. On 08/04 hgb again stable -Discontinued Lovenox and would not recommend restarting this due to to severe bleeding episodes in the last month -Continue to hold home aspirin -Follow calcium levels and replace as needed-was given 1 g of IV gluconate on 08/01 for low ionized calcium as this is a clotting factor -Follow CBC daily -consider IV iron infusions but want to avoid excess IV fluid for now (2) Acute respiratory failure with hypoxia: Secondary to acute on chronic diastolic CHF, perhaps some residual effect from previous Covid-19 pneumonia Chest x-ray here with evidence of CHF, bibasilar opacities that are likely atelectasis versus pneumonitis, and small pleural effusions Repeat CXR 08/03 similar Slightly improved, weight still shows same as admission, but I/Os are accurate with Hess in and she is net negative 7 L Troponin negative, although doubt ongoing ischemia, ECG normal at the time of admission Some anxiety component -continue diuresing with IV Lasix -Check echocardiogram limited to review EF and for wall motion abnormalities- preserved EF -Continue supplemental O2 to keep pulse ox greater than 92% -With significant tachypnea at rest-patient willing to trial CPAP at nighttime- tried and cannot tolerate (3) Dyspnea: As above Continues to be significant with tachypnea at rest Mild hypoxia (4) Anasarca: With massive volume overload and anasarca on examination secondary to acute on chronic diastolic CHF Her weight is up 19 kg in the last 4 weeks when she arrived She has severe hypoalbuminemia with an albumin of 1.3 and acute kidney injury as below when she arrived -Received 2 days worth of IV albumin and IV Lasix twice daily-no further albumin needed -Continue IV Lasix but increased to 80 mg IV twice daily on 08/01 -diuresing well as above but has a long way to go -Consult nephrology for management given acute kidney injury, ATN, and need for diuresis in case renal function worsens -Follow daily weights, I's and O's, low-sodium diet -Follow renal function with diuresis-of note patient would not want dialysis as we discussed -Consult dietitian for improved nutritional status recommendations -given asymmetry of LE edema--> R>L--> check Dopplers to r/o DVT (5) Aspiration into airway: Had an episode of aspiration while eating dinner on the evening of 07/31 which caused tachypnea, upper respiratory gurgling and cough This resolved with coughing Chest x-ray unchanged from previous Is on minced and moist diet Consult speech therapy appreciated-no evidence of aspiration on bedside swallow Developed low-grade fevers in the morning of 08/01 which are now resolved -Check blood cultures-no growth to date x 48 hrs--> dc ertapenem -procalcitonin is normal (6) CHF (congestive heart failure): Acute on chronic diastolic CHF with anasarca as above Likely precipitated by prolonged hospital stay with multiple blood transfusions and IV fluids given Diuresing as above (7) Hematoma: Left gluteus and left lower abdomen Exacerbated by therapeutic Lovenox injections Was present on previous hospitalization as well Transfused as above (8) Hypoalbuminemia: Severe, albumin 1.3 upon admission and received IV albumin in setting of acute on chronic diastolic CHF and anasarca, now improved slightly Dietary consult (9) CKD (chronic kidney disease): Acute kidney failure on CKD stage III secondary to ATN UA with granular casts upon admission and again on repeat urinalysis Creatinine has been down to 1.2-1.5 on recent labs and is now up to 2.3 in the setting of IV diuresis Potassium is borderline high-discontinued home oral potassium supplement and this is now improved She has making plenty of urine Continue diuresis as above with IV Lasix Follow BMP in the morning -Avoid nephrotoxins-was on NSAIDs on home medication list-discontinue these -Have also decreased gabapentin down to 600 mg p.o. twice daily -renally dose meds when appropriate Appreciate nephrology consultation (10) Hyperlipidemia: Continue atorvastatin (11) Diabetes mellitus, type 2: Hemoglobin A1c well controlled at 7.0% in 05/2020 consult glycemic control placed at time of admission Continue NovoLog and Lantus Continue diabetic diet (12) Hypertension: Blood pressure stable Continue Toprol-XL -Continue to monitor (13) MSSA bacteremia: With a history of such from 1 month ago as well as lumbar spinal abscess required interventional radiology for drainage -Will continue cefazolin through 6 week treatment ends on 08/16 Has [address] line in place in the right upper extremity Was supposed to follow-up in the next 1 to 2 weeks with infectious disease To follow CBC, CMP, CRP once weekly while on antibiotics With low-grade fevers here as above thought to be more likely related to aspiration pneumonitis, but repeat blood cultures-no growth to date (14) Atrial fibrillation: With a history of rapid atrial fibrillation during recent previous hospitalization in the setting of severe illness w/ Covid-19 pneumonia, acute blood loss anemia, and MSSA bacteremia lumbar spinal abscess At that time of that hospitalization, she required DC cardioversion for unstable rapid atrial fibrillation Remains in sinus rhythm here continue amiodarone 200 mg p.o. twice daily Continue Toprol-XL -Continue monitoring on telemetry (15) Asthma: With wheezing here which seems more upper airway related to aspiration-now resolved but has some fainter lower wheezes today -Continue albuterol rescue inhaler as needed -Continue Fluticasone/Vilanterol (16) Anxiety: Chronic -Continue Citalopram (17) Microscopic hematuria: Has greater than 30 RBCs per high-power field on each urinalysis Needs follow-up UA after discharge and follow-up nephrology (18) Nausea: may be related to oxycodone? add zofran prn (19) Lower back pain: chronic, s/o recent lumbar spinal abscess drainge decreased gabapentin fo renal dosing add oxycodone prn tylenol prn (20) DVT prophylaxis: Holding therapeutic Lovenox for acute blood loss anemia as above Disposition-continued stay on PCU Patient wishes to be a DNI, but still wants CPR in the setting of cardiac arrest without being put on mechanical ventilation Admission and Anticipated Discharge Date Admission Date: July 30, 2020 Subjective Pt reports feeling a little better than yesterday. Still some pain in left lower back and buttock but no other complaints. Not SOB, +mild cough, Tele with NSR Review of Systems Review of Systems: All systems reviewed & are unremarkable except as noted in HPI & below Physical Exam Constitutional: WD/WN, vitals as above + ill appearing and + morbidly obese Eyes: + anicteric sclerae Neck: trachea midline, no thyromegaly Respiratory: normal respiratory effort, lungs clear to auscultation Cardiovascular: Rate/Rhythm: regular rate and regular rhythm Heart Sounds: no murmur Extremities: + edema (Anasarca with 3-4+ in all extremities, RLE>LLE) Chest (Breasts): Chest: normal inspection of chest Gastrointestinal (Abdomen): normal bowel sounds, soft, nontender, no hepatosplenomegaly Musculoskeletal: Extremities: no cyanosis and no clubbing Skin: no rashes, warm and dry + ulcer (Right lateral chest wall 3 x 4 cm, no erythema) Trauma: + hematoma (Left lower abdomen into left gluteus with very large palpable hematoma) Neurologic: moves all extremities and awake; no focal motor deficits Psychiatric: A+Ox3, euthymic affect Genitourinary: + abnormal external appearance (Hess catheter in place draining loraine urine with sediment) Results & Data Results & Data ([facility]) Vital Signs (Past 12 Hours) Vital Signs Temp Pulse Pulse Resp BP Pulse Ox 08/04/20 15:33 63 08/04/20 15:20 36.4 C L 67 22 116/70 94 08/04/20 11:57 36.4 C L 66 23 131/75 93 08/04/20 08:00 76 08/04/20 07:51 36.5 C 75 19 135/77 95 Laboratory Results 08/04/20 08/04/20 08/04/20 Range/Units 20:18 16:15 11:05 WBC (4.8-10.8) K/uL RBC (4.2-5.4) M/uL Hgb (12.0-16.0) g/dL Hct (37-47) % MCV (80-100) fL MCH (25-34) pg MCHC (32-36) g/dL RDW Std Deviation (36.4-46.3) fL RDW Coeff of Erin (11.5-14.5) % Plt Count (130-400) K/uL MPV (7.4-10.4) fL Sodium (136-145) mmol/L Potassium (3.5-5.1) mmol/L Chloride (98-107) mmol/L Carbon Dioxide (21-32) mmol/L Anion Gap (3-11) BUN (7-18) mg/dl Creatinine (0.6-1.2) mg/dl Est Cr Clr Drug Dosing ml/min Est GFR ( Amer) ml/min Est GFR (Non-Af Amer) ml/min BUN/Creatinine Ratio (10-20) Glucose (70-99) mg/dl POC Glucose 119 H 99 132 H (70-99) mg/dl Calcium (8.5-10.1) mg/dl Magnesium (1.8-2.4) mg/dl Albumin (3.4-5.0) gm/dl 08/04/20 08/04/20 08/04/20 Range/Units 07:05 04:25 04:25 WBC 6.97 (4.8-10.8) K/uL RBC 2.88 L (4.2-5.4) M/uL Hgb 8.5 L (12.0-16.0) g/dL Hct 27.2 L (37-47) % MCV 94.4 (80-100) fL MCH 29.5 (25-34) pg MCHC 31.3 L (32-36) g/dL RDW Std Deviation 62.3 H (36.4-46.3) fL RDW Coeff of Erin 18.0 H (11.5-14.5) % Plt Count 328 (130-400) K/uL MPV 8.5 (7.4-10.4) fL Sodium 138 (136-145) mmol/L Potassium 4.0 (3.5-5.1) mmol/L Chloride 106 (98-107) mmol/L Carbon Dioxide 26 (21-32) mmol/L Anion Gap 6.0 (3-11) BUN 58 H (7-18) mg/dl Creatinine 2.26 H (0.6-1.2) mg/dl Est Cr Clr Drug Dosing 26.6 ml/min Est GFR ( Amer) 22.8 ml/min Est GFR (Non-Af Amer) 19.7 ml/min BUN/Creatinine Ratio 25.7 H (10-20) Glucose 107 H (70-99) mg/dl POC Glucose 115 H (70-99) mg/dl Calcium 7.0 L (8.5-10.1) mg/dl Magnesium 2.0 (1.8-2.4) mg/dl Albumin 1.7 L (3.4-5.0) gm/dl 08/03/20 Range/Units 20:36 WBC (4.8-10.8) K/uL RBC (4.2-5.4) M/uL Hgb (12.0-16.0) g/dL Hct (37-47) % MCV (80-100) fL MCH (25-34) pg MCHC (32-36) g/dL RDW Std Deviation (36.4-46.3) fL RDW Coeff of Erin (11.5-14.5) % Plt Count (130-400) K/uL MPV (7.4-10.4) fL Sodium (136-145) mmol/L Potassium (3.5-5.1) mmol/L Chloride (98-107) mmol/L Carbon Dioxide (21-32) mmol/L Anion Gap (3-11) BUN (7-18) mg/dl Creatinine (0.6-1.2) mg/dl Est Cr Clr Drug Dosing ml/min Est GFR ( Amer) ml/min Est GFR (Non-Af Amer) ml/min BUN/Creatinine Ratio (10-20) Glucose (70-99) mg/dl POC Glucose 131 H (70-99) mg/dl Calcium (8.5-10.1) mg/dl Magnesium (1.8-2.4) mg/dl Albumin (3.4-5.0) gm/dl PG Care Time/CCT Total # of Minutes Spent Total Time Spent with Patient: Total time spent is greater than 50% in coordination of care (as documented) at patient's floor/unit and/or counseling patient: Coding Level of Care Code 26658 Subseq Hosp Care Lvl 2 Diagnoses Acute blood loss anemia D62 Acute respiratory failure with hypoxia J96.01 Dyspnea R06.00 Anasarca R60.1 Aspiration into airway T17.908A CHF (congestive heart failure) I50.9 Heart failure chronicity: unspecified Heart failure type: unspecified Hematoma T14.8XXA Hypoalbuminemia E88.09 CKD (chronic kidney disease) N18.9 Chronic kidney disease stage: unspecified stage Hyperlipidemia E78.5 Diabetes mellitus, type 2 E11.9 Hypertension I10 MSSA bacteremia R78.81; B95.61 Atrial fibrillation I48.91 Asthma J45.909 Anxiety F41.9 Microscopic hematuria R31.29 Nausea R11.0 Lower back pain M54.5 DVT prophylaxis Z29.9 (1) CHF (congestive heart failure) Heart failure chronicity: unspecified Heart failure type: unspecified Qualified Code(s): I50.9 - Heart failure, unspecified (2) CKD (chronic kidney disease) Chronic kidney disease stage: unspecified stage Qualified Code(s): N18.9 - Chronic kidney disease, unspecified
[2020-08-04] MEDS: ATORVASTATIN 40 MG TAB PO SCH (20:14)
[2020-08-04] MEDS: CITALOPRAM 40 MG TAB PO SCH (20:15)
[2020-08-04] MEDS: QUEtiapine FUMARATE 25 MG TABLET PO SCH (20:15)
[2020-08-05] MEDS: oxyCODONE HCL IR 5 MG TAB (IMMEDIATE RELEASE) PO PRN ×3 (03:34→22:40)
[2020-08-05 07:33] LABS: Hematocrit (blood only) 27.2 % (37-47); Hemoglobin 8.5 g/dL (12.0-16.0); Mean Corpuscular Hemoglobin 29.7 pg (25-34); Mean Corpuscular Hgb Conc 31.3 g/dL (32-36); Mean Corpuscular Volume 95.1 fL (80-100); Mean Platelet Volume 8.8 fL (7.4-10.4); Platelet Count 244 K/uL (130-400); RDW Coefficient of Variation 17.7 % (11.5-14.5); RDW Standard Deviation 62.3 fL (36.4-46.3); Red Blood Count 2.86 M/uL (4.2-5.4); White Blood Count 6.87 K/uL (4.8-10.8)
[2020-08-05 08:02] LABS: BUN Creatinine Ratio 25.2 (10-20); Calcium 7.4 mg/dl (8.5-10.1); Creatinine Clr Calc Pharmacy 24.4 ml/min; Est GFR (African American) 21.4 ml/min; Est GFR (Non-African American) 18.5 ml/min; Potassium 3.8 mmol/L (3.5-5.1)
[2020-08-05 08:07] LABS: Ferritin 391.9 ng/ml (8-388)
[2020-08-05] MEDS: ceFAZolin 1000MG 1,000 MG/7.5 ML SYR IV SCH ×2 (08:29→20:26)
[2020-08-05] MEDS: FUROSEMIDE 80 MG in SYRINGE 0 ML IV SCH ×2 (08:29→17:17)
[2020-08-05] MEDS: DOCUSATE SODIUM 100 MG CAP PO SCH (08:30)
[2020-08-05] MEDS: ACETAMINOPHEN 500 MG TAB PO PRN ×2 (08:30→20:26)
[2020-08-05] MEDS: GABAPENTIN 600 MG TAB PO SCH ×2 (08:30→20:26)
[2020-08-05] MEDS: METOPROLOL SUCC 50MG EXT REL TAB PO SCH (08:31)
[2020-08-05] MEDS: PANTOprazole 40 MG TAB PO SCH (08:31)
[2020-08-05] MEDS: AMIODARONE 200 MG TAB PO SCH ×2 (08:31→20:27)
[2020-08-05] MEDS: INSULIN ASPART 100 UNITS/ML 3 ML PEN SC SCH ×4 (08:32→21:30)
[2020-08-05] MEDS: INSULIN GLARGINE SOLOSTAR 100 UNITS/ML 3 ML PEN SC SCH (08:33)
--- NOTE | 2020-08-05 10:04 | Nephrology Progress Note ---
Date of Service August 05, 2020 Assessment & Plan (1) DANIEL (acute kidney injury): * DANIEL due to recent bacteremia (MSSA w/ spinal abscess), anemia (gluteal hematoma) - likely ATN * Cr has been stable at 2.3 since admission. Patient remains nonoliguric (net - 1 L overnight, net -8.4 L since admission). Electrolyte balance is acceptable. No acute indication for HD * Monitor PRP (2) CKD (chronic kidney disease): * Baseline creatinine 1.5 mg/dL * CKD attributed to DKD, obesity, and microvascular disease. + microalbuminuria (3) Anasarca: * Serum albumin 1.8 w/ 3rd spacing volume * Continue furosemide 80 mg IV BID w/ target 1L negative fluid balance/day (4) Anemia: * Gluteal hematoma - has required blood transfusions this admission * Iron saturation < 20% w/ low ferritin. Will schedule IV Venofer * Will administer one dose SQ Epogen (5) Right heart failure: * Echocardiogram 08/03/20: LVEF 55-60%, mod MR, RVSP 30-40 mmHg, dilated IVC Admission and Anticipated Discharge Date Admission Date: July 30, 2020 Subjective Mrs. Mcbride was seen & examined in her hospital room this morning. She c/o swelling of the arms and legs but denies fever, angina or dyspnea Review of Systems Constitutional: + weakness; no fever Eyes: no problem reported Ear, Nose, Mouth, Throat: no problem reported Respiratory: no dyspnea Cardiovascular: + edema; no chest pain and no palpitations Gastrointestinal: no abdominal pain, no nausea and no diarrhea/loose stools Neurologic: no confusion Physical Exam Constitutional: + overweight; not in distress Eyes: PERRL, conjunctivae normal, anicteric sclerae ENMT: external ear and nose normal, oropharynx normal Neck: trachea midline, no thyromegaly Respiratory: normal respiratory effort, lungs clear to auscultation Cardiovascular: Rate/Rhythm: regular rate and regular rhythm Extremities: + edema (tense bilateral pretibial edema, 2+ dependent edema of the arms) Gastrointestinal (Abdomen): normal bowel sounds, soft, nontender, no hepatosplenomegaly Musculoskeletal: Extremities: no cyanosis Neurologic: awake; not confused Results & Data ([facility]) Vital Signs (Past 12 Hours) Vital Signs Temp Pulse Resp BP Pulse Ox 08/05/20 07:57 36.8 C 72 18 121/63 87 L 08/05/20 03:44 36.9 C 72 20 141/65 H 92 08/04/20 23:37 36.7 C 70 18 134/71 95 Laboratory Tests 08/05/20 07:08 WBC 6.87 Hgb 8.5 L Hct 27.2 L Plt Count 244 Laboratory Tests 08/05/20 07:08 Sodium 138 Potassium 3.8 Chloride 104 Carbon Dioxide 26 BUN 60 H Creatinine 2.38 H Calcium 7.4 L Transferrin % Sat 17 Ferritin 391.9 H PG Care Time/CCT Total # of Minutes Spent Total Time Spent with Patient: Total time spent is greater than 50% in coordination of care (as documented) at patient's floor/unit and/or counseling patient: Coding Level of Care Code 69524 Subseq Hosp Care Lvl 3 Diagnoses DANIEL (acute kidney injury) N17.9 CKD (chronic kidney disease) N18.9 Chronic kidney disease stage: unspecified stage Anasarca R60.1 Anemia D64.9 Right heart failure I50.810 (1) CKD (chronic kidney disease) Chronic kidney disease stage: unspecified stage Qualified Code(s): N18.9 - Chronic kidney disease, unspecified
[2020-08-05] MEDS ORDERED: EPOETIN ALFA 10,000 UNITS/ML VIAL SQ ONE (10:30)
--- NOTE | 2020-08-05 11:02 | Hospitalist Progress Note ---
Date of Service August 05, 2020 Assessment & Plan (1) Acute blood loss anemia: Celina Mcbride is an 80-year-old female with a past medical history of asthma, anxiety, atrial fibrillation, MSSA bacteremia following a lumbar spinal abscess requiring IR drainage 06/2020, hyperlipidemia, diabetes mellitus well controlled, CKD, left gluteus hematoma, and CHF who presented with increasing shortness of breath and hemoglobin of 6.1 and was admitted for acute blood loss anemia, acute respiratory failure with hypoxia, and anasarca. Disposition: Celina was admitted with anasarca and acute blood loss anemia likely into a left gluteus/lower abdominal hematoma. She is maintaining good urine output with steady diuresis, anticipate several day course while monitoring kidney function and blood counts. Acute blood loss anemia On admission hemoglobin 6.1 from 8 Prior history of acute blood loss anemia after developing a large left gluteal hematoma Patient had been on therapeutic Lovenox dosing for PE A. fib since discharged from [facility] 2 weeks prior to admission Assessment of hematoma difficult due to body habitus CTA/P on admission without evidence of bleeding, stool guaiac negative, hemodynamically stable on admission Received 2 units PRBC on admission, 1 additional unit evening of 07/31 Hemoglobin stable 7 at 8.5 After risks/benefits discussion of Lovenox use for stroke prevention and A. fib versus her continued bleeding episodes in the last month Lovenox was discontinued CBC daily IV infusion deferred due to minimizing IV fluids initially, pending infusion at this time Acute respiratory failure with hypoxia Acute on chronic CHF with additional colloid infusion EKG without ST or T wave changes, troponin negative on admission Steady diuresis with Lasix 80 mg IV twice daily, patient outputting around 700 per shift Nephrology consulted, will continue current Lasix dose. IV iron pending, 1 dose of Epogen administered Patient hypoalbuminemic to 1.8 with third spacing, nutrition consult pending, plus boost SPO2 goal greater than 88%, titrate nasal cannula as needed Patient was unable to tolerate CPAP at night Anasarca Acute on chronic diastolic CHF as noted above, weight increased 19 kg over 4 weeks Severe hypoalbuminemia as noted above Diuresis as above Nephrology consulted Daily weights, I's and O's, sodium restricted diet Dopplers No DVT within the right or left lower extremity. Airway aspiration Patient with one episode of airway aspiration 07/31 with tachypnea and gurgling, spontaneously resolved CXR unchanged from prior Continue minced and moist, [employer] consulted and showed no evidence of aspiration on bedside swallow Low-grade fever 6 / self resolved, blood cultures no growth at 48 hours, patient was on empiric ertapenem which was discontinued Acute on chronic CHF Management as above Hematoma Left gluteal hematoma and left lower abdomen hematoma Worsen bleeding 2 episodes in the setting of Lovenox injections Acute blood loss anemia management as above, Lovenox discontinued after risk benefits discussion Hypoalbuminemia As above, dietary consult CKD Creatinine baseline approximately 1.21.5 Creatinine approximately 2.3, stable Nephrology consulted Diuresis as above Gabapentin renally dose adjusted Hyperlipidemia Continue atorvastatin Diabetes mellitus, type II 06/19 hemoglobin A1c 7.0% Continue Lantus/SSI Diabetic diet Hypertension Stable Continue home metoprolol MSSA bacteremia Patient with history of MSSA bacteremia, history of lumbar spinal abscess requiring IR drainage Continue cefazolin, patient with anticipated course through 08/[address] line in place Patient has outpatient follow-up to infectious disease Cultures for low-grade fever as above, repeat cultures no growth A. fib Patient with history of A. fib with RVR Sinus rhythm today Continue amiodarone, metoprolol home regimen Asthma Continue fluticasone/Vilanterol Albuterol/DuoNebs as needed Anxiety Continue citalopram Chronic low back pain With history of lumbar spinal abscess drainage as above Gabapentin as above Tylenol as needed as above Oxycodone as needed for breakthrough DVT prophylaxis Contraindicated in the setting of acute blood loss anemia. SCDs CODE STATUS: Conditional code, patient wishes for CPR in the setting of arrest but with no intubation (2) Acute respiratory failure with hypoxia: (3) Anasarca: (4) Aspiration into airway: (5) CHF (congestive heart failure): (6) Hematoma: (7) CKD (chronic kidney disease): (8) Hyperlipidemia: (9) MSSA bacteremia: (10) Atrial fibrillation: (11) Asthma: (12) Anxiety: Admission and Anticipated Discharge Date Admission Date: July 30, 2020 Supervising Physician Co-Signing Physician Notes Patient seen and examined with Dr. Casas. I agree with his exam findings, review of systems, assessment and plan. I have personally reviewed the lab work and imaging from today. patient slowly improving, diuresing with Lasix 80 IV BID, Cr is stable, Hb is stable no signs of blood loss updated daugther at the bedside Exam: obese, no distress, markedly edematous in legs lungs CTA bilaterally, no increased work of breathing heart regular S1 and S2, no murmurs, + 2 pitting edema abdomen soft, NT, ND, + BS no neurological deficits A/P: - Volume overload, CKD: continue Lasix 80mg IV BID, Cr is coming down - Anemia: no further signs of blood loss, Hb is > 8 anticipate being here several days for diuresis, will need SNF, family wants [facility] Subjective Patient was seen at the bedside this morning. She is in no acute distress. Reports she continues to feel swollen and puffy, endorses chronic back pain at baseline. Denies other new pain. She reports she is not short of breath at rest, is easily fatigued/winded. With exertion. Denies signs of bleeding overnight including melena, new bruises, worsening bruising to her knowledge. She denies fever, chills, sweats, shortness of breath, chest pain, chest pressure, lightheadedness, dizziness. No acute questions at time of visit,. On extended risk/benefits discussion of Lovenox for stroke prevention due to atrial arrhythmia versus her risk of bleeding and acute blood loss anemia agrees with decision to stop Lovenox on shared decision making. No questions or concerns at time of assessment. Review of Systems Review of Systems: All systems reviewed & are unremarkable except as noted in HPI & below Physical Exam Physical Exam: General: A&Ox3. NAD. Cooperative. HEENT: Atraumatic, normocephalic. Pulm: Grossly clear, diminished in the bases bilaterally. Symmetrical chest rise. No increase work of breathing. No respiratory distress. Cardiac: RRR, -mrg. Anasarca 3+ edema in all extremities, right lower extremity greater than left lower extremity. Abdominal: Nontender, nondistended, soft. BS present. PalpableHematoma of the left lower abdomen into the left gluteus. Results & Data Results & Data ([facility]) Vital Signs (Past 12 Hours) Vital Signs Temp Pulse Pulse Resp BP Pulse Ox 08/05/20 08:00 71 08/05/20 07:57 36.8 C 72 18 121/63 87 L 08/05/20 03:44 36.9 C 72 20 141/65 H 92 08/04/20 23:37 36.7 C 70 18 134/71 95 Resident Activity Tracking Resident Involvement: Resident Care Provided Care Provided: Adult Hospital Medicine (1) CHF (congestive heart failure) Heart failure chronicity: unspecified Heart failure type: unspecified Qualified Code(s): I50.9 - Heart failure, unspecified (2) CKD (chronic kidney disease) Chronic kidney disease stage: unspecified stage Qualified Code(s): N18.9 - Chronic kidney disease, unspecified
[2020-08-05] MEDS: IRON SUCROSE 200 MG in 0.9 % SODIUM CHLORIDE 100 ML IV SCH (11:15)
[2020-08-05] MEDS: CITALOPRAM 40 MG TAB PO SCH (20:26)
[2020-08-05] MEDS: ATORVASTATIN 40 MG TAB PO SCH (20:27)
[2020-08-05] MEDS: QUEtiapine FUMARATE 25 MG TABLET PO SCH (20:27)
[2020-08-06 05:52] LABS: Hematocrit (blood only) 26.9 % (37-47); Hemoglobin 8.4 g/dL (12.0-16.0); Mean Corpuscular Hemoglobin 29.4 pg (25-34); Mean Corpuscular Hgb Conc 31.2 g/dL (32-36); Mean Corpuscular Volume 94.1 fL (80-100); Mean Platelet Volume 8.8 fL (7.4-10.4); Platelet Count 292 K/uL (130-400); RDW Coefficient of Variation 17.6 % (11.5-14.5); RDW Standard Deviation 60.6 fL (36.4-46.3); Red Blood Count 2.86 M/uL (4.2-5.4); White Blood Count 7.08 K/uL (4.8-10.8)
[2020-08-06 06:20] LABS: BUN Creatinine Ratio 25.8 (10-20); Calcium 7.1 mg/dl (8.5-10.1); Creatinine Clr Calc Pharmacy 25.8 ml/min; Est GFR (African American) 22.8 ml/min; Est GFR (Non-African American) 19.7 ml/min; Potassium 3.7 mmol/L (3.5-5.1)
[2020-08-06] MEDS: IRON SUCROSE 200 MG in 0.9 % SODIUM CHLORIDE 100 ML IV SCH (08:03)
[2020-08-06] MEDS: AMIODARONE 200 MG TAB PO SCH ×2 (08:04→20:38)
[2020-08-06] MEDS: ceFAZolin 1000MG 1,000 MG/7.5 ML SYR IV SCH ×2 (08:04→20:37)
[2020-08-06] MEDS: GABAPENTIN 600 MG TAB PO SCH ×2 (08:04→20:37)
[2020-08-06] MEDS: METOPROLOL SUCC 50MG EXT REL TAB PO SCH (08:04)
[2020-08-06] MEDS: ACETAMINOPHEN 500 MG TAB PO PRN ×2 (08:04→20:37)
[2020-08-06] MEDS: FUROSEMIDE 80 MG in SYRINGE 0 ML IV SCH ×2 (08:04→17:18)
[2020-08-06] MEDS: PANTOprazole 40 MG TAB PO SCH (08:05)
[2020-08-06] MEDS: DOCUSATE SODIUM 100 MG CAP PO SCH (08:05)
[2020-08-06] MEDS: INSULIN GLARGINE SOLOSTAR 100 UNITS/ML 3 ML PEN SC SCH (08:05)
[2020-08-06] MEDS: INSULIN ASPART 100 UNITS/ML 3 ML PEN SC SCH ×4 (08:05→21:27)
--- NOTE | 2020-08-06 09:29 | Hospitalist Progress Note ---
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 Disposition: Celina was admitted with anasarca and acute blood loss anemia likely into a left gluteus/lower abdominal hematoma. She is maintaining good urine output with steady diuresis, anticipate several day course while monitoring kidney function and blood counts. Admit Weight: ~138.2kg Last Known Approx Dry Weight: ~115-120kg Net Fluid Loss: -10L total, ~-1.8L last 24hrs Acute blood loss anemia On admission hemoglobin 6.1 from 8 Prior history of acute blood loss anemia after developing a large left gluteal hematoma Patient had been on therapeutic Lovenox dosing for PE A. fib since discharged from [facility] [place] 2 weeks prior to admission Assessment of hematoma difficult due to body habitus CTA/P on admission without evidence of bleeding, stool guaiac negative, hemodynamically stable on admission Received 2 units PRBC on admission, 1 additional unit evening of 6/2 Hemoglobin stable After risks/benefits discussion of Lovenox use for stroke prevention and A. fib versus her continued bleeding episodes in the last month Lovenox was discontinued CBC daily Iron infusion per nephrology recommendations Acute respiratory failure with hypoxia Acute on chronic CHF with additional colloid infusion EKG without ST or T wave changes, troponin negative on admission Steady diuresis with Lasix 80 mg IV twice daily, patient outputting around [id number] per shift in the last day. Nephrology consulted. Lasix, IV iron and Epogen per nephrology Patient hypoalbuminemic to 1.8 with third spacing, nutrition consult pending, plus boost. Discussed boost with the patient. SPO2 goal greater than 88%, titrate nasal cannula as needed Patient was unable to tolerate CPAP at night Anasarca Acute on chronic diastolic CHF as noted above, weight increased 19 kg over 4 weeks Severe hypoalbuminemia as noted above Diuresis as above Nephrology consulted Daily weights, I's and O's, sodium restricted diet Dopplers No DVT within the right or left lower extremity. Boost and nutritional support as above Airway aspiration Patient with one episode of airway aspiration 07/31 with tachypnea and gurgling, spontaneously resolved CXR post event unchanged from prior Continue minced and moist, [employer] consulted and showed no evidence of aspiration on bedside swallow Low-grade fever 6 / self resolved, blood cultures no growth at 48 hours, patient was on empiric ertapenem which was discontinued Acute on chronic CHF Management as above Hematoma Left gluteal hematoma and left lower abdomen hematoma Worsen bleeding 2 episodes in the setting of Lovenox injections Acute blood loss anemia management as above, Lovenox discontinued after risk benefits discussion Hypoalbuminemia As above, dietary consult CKD Creatinine baseline approximately 1.21.5 Creatinine stable Nephrology consulted Diuresis as above Gabapentin renally dose adjusted Hyperlipidemia Continue atorvastatin Diabetes mellitus, type II 06/19 hemoglobin A1c 7.0% Continue Lantus/SSI Diabetic diet Hypertension Stable Continue home metoprolol MSSA bacteremia Patient with history of MSSA bacteremia, history of lumbar spinal abscess requiring IR drainage Continue cefazolin, patient with anticipated course through 08/[address] line in place Patient has outpatient follow-up to infectious disease Cultures for low-grade fever as above, repeat cultures no growth A. fib Patient with history of A. fib with RVR Sinus rhythm today Continue amiodarone, metoprolol home regimen Asthma Continue fluticasone/Vilanterol Albuterol/DuoNebs as needed Anxiety Continue citalopram Chronic low back pain With history of lumbar spinal abscess drainage as above Gabapentin as above Tylenol as needed as above Oxycodone as needed for breakthrough DVT prophylaxis Contraindicated in the setting of acute blood loss anemia. SCDs/wraps as tolerated CODE STATUS: Conditional code, patient wishes for CPR in the setting of arrest but with no intubation (2) Acute respiratory failure with hypoxia: (3) Anasarca: (4) Aspiration into airway: (5) CHF (congestive heart failure): (6) Hematoma: (7) CKD (chronic kidney disease): (8) Hyperlipidemia: (9) MSSA bacteremia: (10) Atrial fibrillation: (11) Asthma: (12) Anxiety: Admission and Anticipated Discharge Date Admission Date: July 30, 2020 Supervising Physician Co-Signing Physician Notes Patient seen and examined with Dr. Casas. I agree with his exam findings, review of systems, assessment and plan. I have personally reviewed the lab work and imaging from today. continues to have negative fluid balance, Cr is stable at 2.2, Hb is 8.5 eating fairly well, has had a recent BM thomas in place, making a lot of urine Exam: obese, no distress, markedly edematous in legs lungs CTA bilaterally, no increased work of breathing heart regular S1 and S2, no murmurs, + 2 pitting edema abdomen soft, NT, ND, + BS no neurological deficits A/P: - Volume overload, CKD: continue Lasix 80mg IV BID, Cr is coming down - Anemia: no further signs of blood loss, Hb is > 8 anticipate being here several days for diuresis, will need SNF, family wants [facility] Marah Patrick is seen at bedside this morning. She reports that she feels much better than when she came in, but notes she continues to have a lot of swelling particularly in her right hand. Overall she feels tired, but somewhat less so than yesterday. She denies cough, shortness of breath, difficulty breathing, fever, chills, sweats. She denies lightheadedness and dizziness. She is not having abdominal pain or pain in her flank today. She does not express questions or concerns, and acknowledges that she will likely be in the hospital for several days for diuresis. She reports that she has been eating okay, but denied boost as she did not like the taste. Discussed her hypoalbuminemia and third spacing of fluid, importance of protein nutrition to help improve fluid management. Patient expresses understanding of this, and will try to tolerate boost with meals. Review of Systems Review of Systems: Constitutional: Denies fever, chills, malaise Eyes: Denies vision change ENT: Denies ear pain, sore throat, sinus pain Cardiovascular: Denies Chest pain, chest pressure, palpitations. Endorses diffuse body and extremity swelling/edema. Respiratory: Denies acute shortness of breath, cough, sputum production, difficulty breathing Gastrointestinal: Denies abdominal pain, nausea, vomiting, constipation, diarrhea Genitourinary: Denies dysuria, urinary frequency Musculoskeletal: Denies acute focal weakness, muscle aches/pain, joint aches/pain Integumentary:Denies acute rash, lesions, bruising. Endorses a chronic left flank hematoma which she does not think is changed. Neurological: Denies headache, numbness Physical Exam Physical Exam: General: A&Ox3. NAD. Cooperative. HEENT: Atraumatic, normocephalic. Pulm: Grossly clear, diminished in the bases bilaterally. Symmetrical chest rise. No increase work of breathing. No respiratory distress. Cardiac: RRR, -mrg. Anasarca 3+ edema in all extremities, right lower extremity greater than left lower extremity and right upper extremity greater than left upper extremity. Abdominal: Nontender, nondistended, soft. BS present. Palpable hematoma of the left lower abdomen into the left gluteus. Results & Data Results & Data ([facility]) Vital Signs (Past 12 Hours) Vital Signs Temp Pulse Resp BP Pulse Ox 08/06/20 07:53 37.3 C 70 19 130/63 95 08/06/20 03:53 36.7 C 70 16 125/69 95 08/05/20 22:47 36.9 C 70 18 139/71 96 Resident Activity Tracking Resident Involvement: Resident Care Provided Care Provided: Adult Hospital Medicine (1) CHF (congestive heart failure) Heart failure chronicity: unspecified Heart failure type: unspecified Qualified Code(s): I50.9 - Heart failure, unspecified (2) CKD (chronic kidney disease) Chronic kidney disease stage: unspecified stage Qualified Code(s): N18.9 - Chronic kidney disease, unspecified
--- NOTE | 2020-08-06 10:18 | Nephrology Progress Note ---
Date of Service August 06, 2020 Assessment & Plan (1) DANIEL (acute kidney injury): * DANIEL due to recent bacteremia (MSSA w/ spinal abscess), anemia (gluteal hematoma) - likely ATN * Cr has been stable at 2.3 since admission. Patient remains nonoliguric (net - 1.7 L overnight, net -10.2 L since admission). Electrolyte balance is acceptable. No acute indication for HD * Monitor PRP (2) CKD (chronic kidney disease): * Baseline creatinine 1.5 mg/dL * CKD attributed to DKD, obesity, and microvascular disease. + microalbuminuria (3) Anasarca: * Serum albumin 1.8 w/ 3rd spacing volume * Continue furosemide 80 mg IV BID w/ target 1L negative fluid balance/day (4) Anemia: * Gluteal hematoma - has required blood transfusions this admission * Iron saturation < 20% w/ low ferritin. Day #2 of 5 IV Venofer * Epogen 10,000 units SQ x1 administered 08/05/20 (5) Right heart failure: * Echocardiogram 08/03/20: LVEF 55-60%, mod MR, RVSP 30-40 mmHg, dilated IVC Admission and Anticipated Discharge Date Admission Date: July 30, 2020 Subjective Mrs. Mcbride was seen & examined in her hospital room this morning. She c/o swelling of the arms and legs but denies fever, angina or dyspnea Review of Systems Constitutional: + weakness; no fever Eyes: no problem reported Ear, Nose, Mouth, Throat: no problem reported Respiratory: no dyspnea Cardiovascular: + edema; no chest pain and no palpitations Gastrointestinal: no abdominal pain, no nausea and no diarrhea/loose stools Neurologic: no confusion Physical Exam Constitutional: + overweight; not in distress Eyes: PERRL, conjunctivae normal, anicteric sclerae ENMT: external ear and nose normal, oropharynx normal Neck: trachea midline, no thyromegaly Respiratory: normal respiratory effort, lungs clear to auscultation Cardiovascular: Rate/Rhythm: regular rate and regular rhythm Extremities: + edema (tense bilateral pretibial edema, 2+ dependent edema of the arms) Gastrointestinal (Abdomen): normal bowel sounds, soft, nontender, no hepatosplenomegaly Musculoskeletal: Extremities: no cyanosis Neurologic: awake; not confused Results & Data ([facility]) Vital Signs (Past 12 Hours) Vital Signs Temp Pulse Pulse Resp BP Pulse Ox 08/06/20 08:00 71 08/06/20 07:53 37.3 C 70 19 130/63 95 08/06/20 03:53 36.7 C 70 16 125/69 95 08/05/20 22:47 36.9 C 70 18 139/71 96 Laboratory Tests 08/06/20 08/06/20 05:33 05:33 WBC 7.08 Hgb 8.4 L Hct 26.9 L Plt Count 292 Sodium 139 Potassium 3.7 Chloride 105 Carbon Dioxide 27 BUN 58 H Creatinine 2.26 H Glucose 101 H PG Care Time/CCT Total # of Minutes Spent Total Time Spent with Patient: Total time spent is greater than 50% in coordination of care (as documented) at patient's floor/unit and/or counseling patient: Coding Level of Care Code 29424 Subseq Hosp Care Lvl 3 Diagnoses DANIEL (acute kidney injury) N17.9 CKD (chronic kidney disease) N18.9 Chronic kidney disease stage: unspecified stage Anasarca R60.1 Anemia D64.9 Right heart failure I50.810 (1) CKD (chronic kidney disease) Chronic kidney disease stage: unspecified stage Qualified Code(s): N18.9 - Chronic kidney disease, unspecified
--- NOTE | 2020-08-06 13:04 | Pharmacy Report ---
Pharmacy Glycemic Short Note 2 - Date of Service August 06, 2020 - Glycemic Short BSG Results (Last 24 hours): 08/05/20 08/05/20 08/06/20 16:10 20:41 05:33 Glucose 101 H POC Glucose 127 H 105 H 08/06/20 08/06/20 07:14 11:06 Glucose POC Glucose 108 H 119 H OUTPATIENT ANTIDIABETIC REGIMEN: * Lantus 25 units SC BID * HbA1c: 7% (06/24/20) ASSESSMENT: 08/06/20 * Ms Mcbride has been well-controlled on ~15 units or less of insulin per day. * No changes to insulin regimen in 3-4 days. * No changes required at this time. PLAN FOR INPATIENT GLYCEMIC CONTROL: * Basal insulin: * Lantus 8 units SQ daily * Bolus insulin * NovoLog per scale ACHS or Q6hrs while NPO * Goal Range: Low 100 mg/dL - High 140 mg/dL * Correction Factor: 30 mg/dL/unit * Nutritional / Prandial insulin per carb ratio of 1 unit per 10 grams CHO consumed PLAN FOR DISCHARGE: * Reasonable HbA1c goal for this patient based on age and comorbidities would be less than 8% * Given hypoglycemia, patient will likely require insulin dose reduction at discharge.
[2020-08-06] MEDS: QUEtiapine FUMARATE 25 MG TABLET PO SCH (20:37)
[2020-08-06] MEDS: ATORVASTATIN 40 MG TAB PO SCH (20:37)
[2020-08-06] MEDS: CITALOPRAM 40 MG TAB PO SCH (20:37)
[2020-08-07 06:13] LABS: Hemoglobin 8.5 g/dL (12.0-16.0); Mean Corpuscular Hemoglobin 29.3 pg (25-34); Mean Corpuscular Hgb Conc 30.4 g/dL (32-36); Mean Corpuscular Volume 96.6 fL (80-100); Mean Platelet Volume 9.1 fL (7.4-10.4); Platelet Count 292 K/uL (130-400); RDW Coefficient of Variation 17.9 % (11.5-14.5); RDW Standard Deviation 63.3 fL (36.4-46.3); White Blood Count 7.86 K/uL (4.8-10.8)
[2020-08-07 06:34] LABS: BUN Creatinine Ratio 25.5 (10-20); Calcium 7.3 mg/dl (8.5-10.1); Creatinine Clr Calc Pharmacy 25.3 ml/min; Est GFR (African American) 22.8 ml/min; Est GFR (Non-African American) 19.7 ml/min; Potassium 3.6 mmol/L (3.5-5.1)
[2020-08-07] MEDS: IRON SUCROSE 200 MG in 0.9 % SODIUM CHLORIDE 100 ML IV SCH (08:50)
[2020-08-07] MEDS: FUROSEMIDE 80 MG in SYRINGE 0 ML IV SCH ×2 (08:51→16:17)
[2020-08-07] MEDS: ceFAZolin 1000MG 1,000 MG/7.5 ML SYR IV SCH ×2 (08:51→21:34)
[2020-08-07] MEDS: DOCUSATE SODIUM 100 MG CAP PO SCH (08:52)
[2020-08-07] MEDS: INSULIN ASPART 100 UNITS/ML 3 ML PEN SC SCH ×4 (08:52→22:43)
[2020-08-07] MEDS: PANTOprazole 40 MG TAB PO SCH (08:52)
[2020-08-07] MEDS: METOPROLOL SUCC 50MG EXT REL TAB PO SCH (08:52)
[2020-08-07] MEDS: AMIODARONE 200 MG TAB PO SCH ×2 (08:52→22:15)
[2020-08-07] MEDS: GABAPENTIN 600 MG TAB PO SCH ×2 (08:52→22:15)
[2020-08-07] MEDS: INSULIN GLARGINE SOLOSTAR 100 UNITS/ML 3 ML PEN SC SCH (08:54)
--- NOTE | 2020-08-07 09:55 | Nephrology Progress Note ---
Date of Service August 07, 2020 Assessment & Plan (1) DANIEL (acute kidney injury): * DANIEL due to recent bacteremia (MSSA w/ spinal abscess), anemia (gluteal hematoma) - likely ATN * Cr has been stable at 2.3 since admission. Patient remains nonoliguric (net - 1.7 L overnight, net -10.2 L since admission). Electrolyte balance is acceptable. No acute indication for HD * Monitor PRP (2) CKD (chronic kidney disease): * Baseline creatinine 1.5 mg/dL * CKD attributed to DKD, obesity, and microvascular disease. + microalbuminuria (3) Anasarca: * Serum albumin 1.8 w/ 3rd spacing volume * Continue furosemide 80 mg IV BID w/ target 1L negative fluid balance/day * I&O's matched overnight. Will monitor today. If no diuresis will titrate diuretic tomorrow (4) Anemia: * Gluteal hematoma - has required blood transfusions this admission * Iron saturation < 20% w/ low ferritin. Day #3 of 5 IV Venofer * Epogen 10,000 units SQ x1 administered 08/05/20 (5) Right heart failure: * Echocardiogram 08/03/20: LVEF 55-60%, mod MR, RVSP 30-40 mmHg, dilated IVC Admission and Anticipated Discharge Date Admission Date: July 30, 2020 Subjective Mrs. Mcbride was seen & examined in her hospital room this morning. She c/o swelling of the arms and legs but denies fever, angina or dyspnea. She remains very weak but is asking to go home Review of Systems Constitutional: + weakness; no fever Eyes: no problem reported Ear, Nose, Mouth, Throat: no problem reported Respiratory: no dyspnea Cardiovascular: + edema; no chest pain and no palpitations Gastrointestinal: no abdominal pain, no nausea and no diarrhea/loose stools Neurologic: no confusion Physical Exam Constitutional: + overweight; not in distress Eyes: PERRL, conjunctivae normal, anicteric sclerae ENMT: external ear and nose normal, oropharynx normal Neck: trachea midline, no thyromegaly Respiratory: normal respiratory effort, lungs clear to auscultation Cardiovascular: Rate/Rhythm: regular rate and regular rhythm Extremities: + edema (tense bilateral pretibial edema, 2+ dependent edema of the arms) Gastrointestinal (Abdomen): normal bowel sounds, soft, nontender, no hepatosplenomegaly Musculoskeletal: Extremities: no cyanosis Neurologic: awake; not confused Results & Data ([facility]) Vital Signs (Past 12 Hours) Vital Signs Temp Pulse Pulse Resp BP Pulse Ox 08/07/20 08:00 69 08/07/20 07:24 37.1 C 69 18 119/67 94 08/07/20 04:18 36.9 C 69 20 125/67 93 08/07/20 00:38 37 C 65 20 125/69 94 Laboratory Tests 08/07/20 08/07/20 05:28 05:28 WBC 7.86 Hgb 8.5 L Hct 28.0 L Plt Count 292 Sodium 141 Potassium 3.6 Chloride 105 Carbon Dioxide 30 BUN 58 H Creatinine 2.26 H PG Care Time/CCT Total # of Minutes Spent Total Time Spent with Patient: Total time spent is greater than 50% in coordination of care (as documented) at patient's floor/unit and/or counseling patient: Coding Level of Care Code 95034 Subseq Hosp Care Lvl 3 Diagnoses DANIEL (acute kidney injury) N17.9 CKD (chronic kidney disease) N18.9 Chronic kidney disease stage: unspecified stage Anasarca R60.1 Anemia D64.9 Right heart failure I50.810 (1) CKD (chronic kidney disease) Chronic kidney disease stage: unspecified stage Qualified Code(s): N18.9 - Chronic kidney disease, unspecified
[2020-08-07] MEDS: ACETAMINOPHEN 500 MG TAB PO PRN (16:21)
--- NOTE | 2020-08-07 19:41 | Hospitalist Progress Note ---
Date of Service August 07, 2020 Assessment & Plan (1) Acute blood loss anemia: Patient presents with increasing shortness of breath and was found to have a hemoglobin of 6.1 down from 8 previously; also with anasarca and 40 lb weight gain in 1 month She has a history of acute blood loss anemia from admission several weeks ago after having large left gluteal hematoma. She has been receiving therapeutic dose Lovenox injections for her paroxysmal atrial fibrillation since discharge from [facility] 2 weeks ago She has pain at the hematoma site and due to her morbid obesity, it is difficult to tell if this is enlarged from previous but this is most likely source of continued blood loss CT abdomen/pelvis without evidence of bleeding Stool was guaiac negative reportedly Remains hemodynamically stable Was transfused 2 units PRBCs upon admission and hemoglobin was up to 8.1 and th en dropped down again on repeat CBC to 7.7 on 07/31 She was given 1 more unit of PRBCs on the evening of 07/31 Hemoglobin has been > 8 since 07/31, today it is 8.5 -Discontinued Lovenox and would not recommend restarting this due to to severe bleeding episodes in the last month -Continue to hold home aspirin -Follow calcium levels and replace as needed-was given 1 g of IV gluconate on 08/01 for low ionized calcium as this is a clotting factor -Follow CBC daily -consider IV iron infusions but want to avoid excess IV fluid for now (2) Acute respiratory failure with hypoxia: Secondary to acute on chronic diastolic CHF, perhaps some residual effect from previous Covid-19 pneumonia Chest x-ray here with evidence of CHF, bibasilar opacities that are likely a telectasis versus pneumonitis, and small pleural effusions Repeat CXR 08/03 similar Slightly improved, weight still shows same as admission, but I/Os are accurate with Hess in and she is net negative 7 L Troponin negative, although doubt ongoing ischemia, ECG normal at the time of admission Some anxiety component -continue diuresing with IV Lasix -Check echocardiogram limited to review EF and for wall motion abnormalities- preserved EF -Continue supplemental O2 to keep pulse ox greater than 92% -now down to room air, no distress, lungs clear (3) Anasarca: With massive volume overload and anasarca on examination secondary to acute on chronic diastolic CHF Her weight is up 19 kg in the last 4 weeks when she arrived She has severe hypoalbuminemia with an albumin of 1.3 and acute kidney injury as below when she arrived -Received 2 days worth of IV albumin and IV Lasix twice daily-no further albumin needed -Continue IV Lasix 80 mg IV twice daily -diuresing well as above but has a long way to go -Consult nephrology for management given acute kidney injury, ATN, and need for diuresis in case renal function worsens -Follow daily weights, I's and O's, low-sodium diet -Follow renal function with diuresis-of note patient would not want dialysis as we discussed -Consult dietitian for improved nutritional status recommendations -given asymmetry of LE edema--> R>L--> check Dopplers to r/o DVT continues to have negative daily balance, neg 1600mL today Cr stable at 2.2, electrolytes stable (4) Aspiration into airway: Had an episode of aspiration while eating dinner on the evening of 07/31 which caused tachypnea, upper respiratory gurgling and cough This resolved with coughing Chest x-ray unchanged from previous Is on minced and moist diet Consult speech therapy appreciated-no evidence of aspiration on bedside swallow Developed low-grade fevers in the morning of 08/01 which are now resolved -Check blood cultures-no growth to date x 48 hrs--> dc ertapenem -procalcitonin is normal (5) CHF (congestive heart failure): Acute on chronic diastolic CHF with anasarca as above Likely precipitated by prolonged hospital stay with multiple blood transfusions and IV fluids given Diuresing as above (6) Hematoma: Left gluteus and left lower abdomen Exacerbated by therapeutic Lovenox injections Was present on previous hospitalization as well Transfused as above (7) CKD (chronic kidney disease): Acute kidney failure on CKD stage III secondary to ATN UA with granular casts upon admission and again on repeat urinalysis Creatinine has been down to 1.2-1.5 on recent labs and is now up to 2.2 in the setting of IV diuresis Potassium is borderline high-discontinued home oral potassium supplement and this is now improved She has making plenty of urine Continue diuresis as above with IV Lasix Follow BMP in the morning -Avoid nephrotoxins-was on NSAIDs on home medication list-discontinue these -Have also decreased gabapentin down to 600 mg p.o. twice daily -renally dose meds when appropriate Appreciate nephrology consultation (8) Hyperlipidemia: Continue atorvastatin (9) MSSA bacteremia: With a history of such from 1 month ago as well as lumbar spinal abscess required interventional radiology for drainage -Will continue cefazolin through 6 week treatment ends on 08/16 [address] line in place in the right upper extremity Was supposed to follow-up in the next 1 to 2 weeks with infectious disease To follow CBC, CMP, CRP once weekly while on antibiotics With low-grade fevers here as above thought to be more likely related to aspiration pneumonitis, but repeat blood cultures-no growth to date (10) Atrial fibrillation: With a history of rapid atrial fibrillation during recent previous hospitalization in the setting of severe illness w/ Covid-19 pneumonia, acute blood loss anemia, and MSSA bacteremia lumbar spinal abscess At that time of that hospitalization, she required DC cardioversion for unstable rapid atrial fibrillation Remains in sinus rhythm here continue amiodarone 200 mg p.o. twice daily Continue Toprol-XL -Continue monitoring on telemetry (11) Asthma: (12) Anxiety: Chronic -Continue Citalopram Admission and Anticipated Discharge Date Admission Date: July 30, 2020 Subjective patient very comfortable, vitals stable, continues to diurese negative 1600mL on the day Cr stable at 2.2 and Hb is 8.5 I/O: negative 12 liters, weight down by 12kg eating well, moving her bowels lower legs have compression wraps no issues on tele, will move to medical floor tried calling her daughter twice, no answer Review of Systems Review of Systems: All systems reviewed & are unremarkable except as noted in Subjective Physical Exam Constitutional: well developed, + morbidly obese, comfortable and + edematous; no acute distress Neck: trachea midline, no thyromegaly Respiratory: normal respiratory effort, lungs clear to auscultation Cardiovascular: Rate/Rhythm: regular rate and regular rhythm Heart Sounds: normal S1 and normal S2; no murmur Vessels: no JVD Extremities: normal capillary refill and + edema Gastrointestinal (Abdomen): normal bowel sounds, soft, nontender, no hepatosplenomegaly Musculoskeletal: Head/Neck/Chest: normocephalic, head atraumatic and neck supple Extremities: extremities normal to inspection and + abnormal strength (generalized weakness); no cyanosis, no clubbing and no petechiae Skin: no rashes, warm and dry Neurologic: CN's II-XI intact bilaterally, moves all extremities and awake; no focal motor deficits Psychiatric: A+Ox3, euthymic affect Results & Data Results & Data ([facility]) Vital Signs (Past 12 Hours) Vital Signs Temp Pulse Pulse Resp BP Pulse Ox 08/07/20 16:17 37.2 C 70 20 133/61 91 08/07/20 11:31 36.7 C 66 16 134/71 91 08/07/20 08:00 69 Laboratory Results Laboratory Results - last 24 hr 08/07/20 08/07/20 08/07/20 05:28 05:28 07:20 WBC 7.86 RBC 2.90 L Hgb 8.5 L Hct 28.0 L MCV 96.6 MCH 29.3 MCHC 30.4 L RDW Std Deviation 63.3 H RDW Coeff of Erin 17.9 H Plt Count 292 MPV 9.1 Sodium 141 Potassium 3.6 Chloride 105 Carbon Dioxide 30 Anion Gap 6.0 BUN 58 H Creatinine 2.26 H Est Cr Clr Drug Dosing 25.3 Est GFR ( Amer) 22.8 Est GFR (Non-Af Amer) 19.7 BUN/Creatinine Ratio 25.5 H Glucose 85 POC Glucose 114 H Calcium 7.3 L 08/07/20 08/07/20 08/07/20 11:39 16:06 21:14 WBC RBC Hgb Hct MCV MCH MCHC RDW Std Deviation RDW Coeff of Erin Plt Count MPV Sodium Potassium Chloride Carbon Dioxide Anion Gap BUN Creatinine Est Cr Clr Drug Dosing Est GFR ( Amer) Est GFR (Non-Af Amer) BUN/Creatinine Ratio Glucose POC Glucose 99 105 H 108 H Calcium Medications Administered Current Inpatient Medications Acetaminophen (Acetaminophen 500 Mg Tab) 1,000 mg PO Q8 PRN PRN Reason: Pain or Fever Stop: 08/29/20 22:25 Last Admin: 08/07/20 16:21 Dose: 1,000 mg Documented by: Albuterol (Albuterol 0.083% Nebu Soln 3 Ml Vial) 2.5 mg INH QID PRN PRN Reason: Shortness Of Breath Stop: 08/30/20 22:24 Amiodarone HCl (Amiodarone 200 Mg Tab) 200 mg PO BID ISIAAS Stop: 08/29/20 20:59 Last Admin: 08/07/20 22:15 Dose: 200 mg Documented by: Atorvastatin Calcium (Atorvastatin 40 Mg Tab) 40 mg PO HS ISAIAS Stop: 08/29/20 20:59 Last Admin: 08/07/20 22:15 Dose: 40 mg Documented by: Citalopram Hydrobromide (Citalopram 40 Mg Tab) 40 mg PO QPM ISAIAS Stop: 08/29/20 20:59 Last Admin: 08/07/20 22:15 Dose: 40 mg Documented by: Dextrose (Dextrose 50% 50 Ml Syringe) 25 - 50 ml IV UD PRN; Protocol PRN Reason: Hypoglycemia Protocol Stop: 08/30/20 05:59 Docusate Sodium (Docusate Sodium 100 Mg Cap) 200 mg PO DAILY ISAIAS Stop: 08/31/20 08:59 Last Admin: 08/07/20 08:52 Dose: 200 mg Documented by: Gabapentin (Gabapentin 600 Mg Tab) 600 mg PO BID ISAIAS Stop: 08/31/20 20:59 Last Admin: 08/07/20 22:15 Dose: 600 mg Documented by: Glucagon (Glucagon For Inj 1 Mg Vial) 1 mg IM UD PRN; Protocol PRN Reason: Hypoglycemia Protocol Stop: 08/30/20 05:59 Glucose (Glucose 40% Gel 15 Gm Tube) 15 - 30 gm PO UD PRN; Protocol PRN Reason: Hypoglycemia Protocol Stop: 08/30/20 05:59 Glucose (Glucose 10 Tabs/Tube) 4 - 8 tabs PO UD PRN; Protocol PRN Reason: Hypoglycemia Protocol Stop: 08/30/20 05:59 Heparin Sodium (Beef Lung) (Heparin 10 Unit/Ml 5 Ml Flush) 5 ml FLUSH PRN PRN PRN Reason: Flush Stop: 08/30/20 11:27 Last Admin: 08/07/20 21:36 Dose: 5 ml Documented by: Cefazolin Sodium (Ancef 1000mg) 1,000 mg in 7.5 mls @ 2.5 mls/min IV Q12H ISAIAS Stop: 08/18/20 20:03 Last Admin: 08/07/20 21:34 Dose: 2.5 mls/min Documented by: Furosemide 80 mg/ Syringe 8 mls @ 4 mls/min IV BID17 ISAIAS Stop: 08/31/20 16:59 Last Admin: 08/07/20 16:17 Dose: 4 mls/min Documented by: Iron Sucrose 200 mg/ Sodium (Chloride) 110 mls @ 220 mls/hr IV DAILY [facility] Stop: 08/09/20 09:29 Last Infusion: 08/07/20 09:40 Dose: Infused Documented by: Insulin Aspart (Insulin Aspart 100 Units/Ml 3 Ml Pen) 0 units SC ACHS [facility] Stop: 08/30/20 05:59 Last Admin: 08/07/20 17:03 Dose: 3 units Documented by: Insulin Glargine (Insulin Glargine Solostar 100 Units/Ml 3 Ml Pen) 8 units SC DAILY [facility]; Protocol Stop: 09/01/20 08:59 Last Admin: 08/07/20 08:54 Dose: 8 units Documented by: Metoprolol Succinate (Metoprolol Succ 50mg Ext Rel Tab) 50 mg PO DAILY [facility] Stop: 08/31/20 08:59 Last Admin: 08/07/20 08:52 Dose: 50 mg Documented by: Miscellaneous (Carbohydrates For Hypoglycemia ) 15 - 30 gm PO UD PRN PRN Reason: Hypoglycemia Treatment Stop: 08/30/20 05:59 Miscellaneous Information (Pharmacy Glycemic Mgmt Consult) 1 ea N/A UD PRN PRN Reason: Consult Stop: 08/30/20 05:42 Nitroglycerin (Nitroglycerin Sl 0.4 Mg/Tab Tab) 0.4 mg SL Q5M PRN PRN Reason: chest pain Stop: 08/29/20 15:59 Ondansetron HCl (Ondansetron Inj 2 Mg/Ml 2 Ml Vial) 4 mg IV Q6H PRN PRN Reason: Nausea And Vomiting Stop: 09/02/20 12:15 Oxycodone HCl (Oxycodone Hcl Ir 5 Mg Tab (Immediate Release)) 5 mg PO Q8 PRN PRN Reason: Pain Stop: 08/17/20 12:09 Last Admin: 08/05/20 22:40 Dose: 5 mg Documented by: Pantoprazole Sodium (Pantoprazole 40 Mg Tab) 40 mg PO QAM [facility] Stop: 08/30/20 08:59 Last Admin: 08/07/20 08:52 Dose: 40 mg Documented by: Quetiapine Fumarate (Quetiapine Fumarate 25 Mg Tablet) 25 mg PO HS [facility] Stop: 08/29/20 20:59 Last Admin: 08/07/20 22:15 Dose: 25 mg Documented by: PG Care Time/CCT Total # of Minutes Spent Total Time Spent with Patient: Total time spent is greater than 50% in coordination of care (as documented) at patient's floor/unit and/or counseling patient: Coding Level of Care Code 15935 Subseq Hosp Care Lvl 3 Diagnoses Acute blood loss anemia D62 Acute respiratory failure with hypoxia J96.01 Anasarca R60.1 Aspiration into airway T17.908A CHF (congestive heart failure) I50.9 Heart failure chronicity: unspecified Heart failure type: unspecified Hematoma T14.8XXA CKD (chronic kidney disease) N18.9 Chronic kidney disease stage: unspecified stage Hyperlipidemia E78.5 MSSA bacteremia R78.81; B95.61 Atrial fibrillation I48.91 Asthma J45.909 Anxiety F41.9 (1) CHF (congestive heart failure) Heart failure chronicity: unspecified Heart failure type: unspecified Qualified Code(s): I50.9 - Heart failure, unspecified (2) CKD (chronic kidney disease) Chronic kidney disease stage: unspecified stage Qualified Code(s): N18.9 - Chronic kidney disease, unspecified
--- NOTE | 2020-08-07 19:41 | Billing Data ---
Date of Service August 06, 2020 Coding Level of Care Code 69435 Subseq Hosp Care Lvl 2
--- NOTE | 2020-08-07 19:41 | Billing Data ---
Date of Service August 05, 2020 Coding Level of Care Code 13147 Subseq Hosp Care Lvl 2
[2020-08-07] MEDS: CITALOPRAM 40 MG TAB PO SCH (22:15)
[2020-08-07] MEDS: QUEtiapine FUMARATE 25 MG TABLET PO SCH (22:15)
[2020-08-07] MEDS: ATORVASTATIN 40 MG TAB PO SCH (22:15)
[2020-08-08] MEDS: ACETAMINOPHEN 500 MG TAB PO PRN ×2 (00:36→12:37)
[2020-08-08 06:02] LABS: Hematocrit (blood only) 27.7 % (37-47); Hemoglobin 8.7 g/dL (12.0-16.0); Mean Corpuscular Hemoglobin 29.4 pg (25-34); Mean Corpuscular Hgb Conc 31.4 g/dL (32-36); Mean Corpuscular Volume 93.6 fL (80-100); Mean Platelet Volume 8.9 fL (7.4-10.4); Platelet Count 279 K/uL (130-400); RDW Coefficient of Variation 17.9 % (11.5-14.5); Red Blood Count 2.96 M/uL (4.2-5.4); White Blood Count 8.49 K/uL (4.8-10.8)
[2020-08-08 06:36] LABS: BUN Creatinine Ratio 24.2 (10-20); Calcium 7.1 mg/dl (8.5-10.1); Creatinine Clr Calc Pharmacy 25.3 ml/min; Est GFR (Non-African American) 19.8 ml/min; Potassium 3.5 mmol/L (3.5-5.1)
--- NOTE | 2020-08-08 07:33 | Hospitalist Progress Note ---
Date of Service August 08, 2020 Assessment & Plan (1) Acute blood loss anemia: Celina Mcbride is an 80-year-old female with a past medical history of asthma, anxiety, atrial fibrillation, MSSA bacteremia following a lumbar spinal abscess requiring IR drainage 06/2020, hyperlipidemia, diabetes mellitus well controlled, CKD, left gluteus hematoma, and CHF who presented with increasing shortness of breath and hemoglobin of 6.1 and was admitted for acute blood loss anemia, acute respiratory failure with hypoxia, and anasarca. Disposition: Celina was admitted with anasarca and acute blood loss anemia likely into a left gluteus/lower abdominal hematoma. She is maintaining good urine output with steady diuresis, anticipate several day course while monitoring kidney function and blood counts. Admit Weight: ~138.2kg Last Known Approx Dry Weight: ~115-120kg Daily weight approximately 126 kg Acute blood loss anemia On admission hemoglobin 6.1 from 8 Prior history of acute blood loss anemia after developing a large left gluteal hematoma Patient had been on therapeutic Lovenox dosing for PE A. fib since discharged from [facility] 2 weeks prior to admission Assessment of hematoma difficult due to body habitus CTA/P on admission without evidence of bleeding, stool guaiac negative, hemodynamically stable on admission Received 2 units PRBC on admission, 1 additional unit evening of /2 Hemoglobin stable After risks/benefits discussion of Lovenox use for stroke prevention and A. fib versus her continued bleeding episodes in the last month Lovenox was discontinued CBC daily Iron infusion per nephrology recommendations (5 Day total course) Acute respiratory failure with hypoxia Acute on chronic CHF with additional colloid infusion EKG without ST or T wave changes, troponin negative on admission Steady diuresis with Lasix 80 mg IV twice daily, net ~-1L goal per day Nephrology consulted. Lasix, IV iron and Epogen per nephrology accommodations. Signed off, appreciate recommendations SPO2 goal greater than 88%, titrate nasal cannula as needed Patient was unable to tolerate CPAP at night Anasarca Acute on chronic diastolic CHF as noted above, weight increased 19 kg over 4 weeks Severe hypoalbuminemia.Patient hypoalbuminemic to 1.8 with third spacing, Discussed boost with the patient. Diuresis as above Nephrology consulted, signed off. Appreciate recommendations Daily weights, I's and O's, sodium restricted diet Dopplers No DVT within the right or left lower extremity. Boost and nutritional support as above Improved with compression hosing, continue at this time Airway aspiration Patient with one episode of airway aspiration 07/31 with tachypnea and gurgling, spontaneously resolved CXR post event unchanged from prior Continue minced and moist, [employer] consulted and showed no evidence of aspiration on bedside swallow Low-grade fever self resolved, blood cultures no growth, patient was on empiric ertapenem which was discontinued Acute on chronic CHF Management as above Hematoma Left gluteal hematoma and left lower abdomen hematoma Worsen bleeding 2 episodes in the setting of Lovenox injections Acute blood loss anemia management as above, Lovenox discontinued after risk benefits discussion Hypoalbuminemia As above, dietary consult CKD Creatinine baseline approximately 1.21.5 Creatinine stable Nephrology consulted Diuresis as above Gabapentin renally dose adjusted Hyperlipidemia Continue atorvastatin Diabetes mellitus, type II 06/19 hemoglobin A1c 7.0% Continue Lantus/SSI Diabetic diet Hypertension Stable Continue home metoprolol MSSA bacteremia Patient with history of MSSA bacteremia, history of lumbar spinal abscess requiring IR drainage Continue cefazolin, patient with anticipated course through 08/[address] line in place Patient has outpatient follow-up to infectious disease Cultures for low-grade fever as above, repeat cultures no growth A. fib Patient with history of A. fib with RVR Sinus rhythm today Continue amiodarone, metoprolol home regimen Asthma Continue fluticasone/Vilanterol Albuterol/DuoNebs as needed Anxiety Continue citalopram Chronic low back pain With history of lumbar spinal abscess drainage as above Gabapentin as above Tylenol as needed as above Oxycodone as needed for breakthrough DVT prophylaxis Contraindicated in the setting of acute blood loss anemia. SCDs CODE STATUS: Conditional code, patient wishes for CPR in the setting of arrest but with no intubation (2) Acute respiratory failure with hypoxia: (3) Anasarca: (4) Aspiration into airway: (5) CHF (congestive heart failure): (6) Hematoma: (7) CKD (chronic kidney disease): (8) Hyperlipidemia: (9) MSSA bacteremia: (10) Atrial fibrillation: (11) Asthma: (12) Anxiety: Admission and Anticipated Discharge Date Admission Date: July 30, 2020 Supervising Physician Co-Signing Physician Notes Patient seen and examined with Dr. Casas. I agree with his exam findings, review of systems, assessment and plan. I have personally reviewed the lab work and imaging from today. continues to have negative fluid balance, Cr is stable at 2.26 again today, Hb is >8 eating fairly well, has had a recent BM thomas in place, making a lot of urine Exam: obese, no distress, markedly edematous in legs lungs CTA bilaterally, no increased work of breathing heart regular S1 and S2, no murmurs, + 2 pitting edema abdomen soft, NT, ND, + BS no neurological deficits A/P: - Volume overload, CKD: continue Lasix 80mg IV BID, Cr is stable - Anemia: no further signs of blood loss, Hb is > 8 anticipate being here several days for diuresis, will need SNF, family planning on getting her into the same SNF to be together Marah Patrick is seen at the bedside this morning. She reports that she feels better, and feels like she is "losing a ton of fluid ". She is aware that she has several pounds left ago, but overall feels like she is making progress and is happy with this. She denies shortness of breath, chest pain, chest pressure, fever, chills, cough, night sweats overnight. She reports she continues to have some chronic low back pain which has not changed from prior. Otherwise denies symptoms in pain today. No additional questions or concerns at time of visit. Review of Systems Review of Systems: All systems reviewed & are unremarkable except as noted in HPI & below Physical Exam Physical Exam: General: A&Ox3. NAD. Cooperative. HEENT: Atraumatic, normocephalic. Visual acuity, hearing grossly intact. Pulm: Grossly clear, diminished in the bases bilaterally. Symmetrical chest rise. No increase work of breathing. No respiratory distress. Cardiac: RRR, -mrg. Anasarca 3+ edema in all extremities improved compared to prior compression hose and in place on lower extremities, PT pulse palpable bilaterally. Abdominal: Nontender, nondistended, soft. BS present. Continued palpable hematoma of the left lower abdomen into the left gluteus. Results & Data Results & Data ([facility]) Vital Signs (Past 12 Hours) Vital Signs Temp Pulse Resp BP Pulse Ox 08/08/20 07:26 37.1 C 70 21 144/64 H 91 08/07/20 23:31 36.8 C 66 18 125/70 94 Resident Activity Tracking Resident Involvement: Resident Care Provided Care Provided: Adult Hospital Medicine (1) CHF (congestive heart failure) Heart failure chronicity: unspecified Heart failure type: unspecified Qualified Code(s): I50.9 - Heart failure, unspecified (2) CKD (chronic kidney disease) Chronic kidney disease stage: unspecified stage Qualified Code(s): N18.9 - Chronic kidney disease, unspecified
[2020-08-08] MEDS: FUROSEMIDE 80 MG in SYRINGE 0 ML IV SCH ×2 (08:31→18:07)
[2020-08-08] MEDS: IRON SUCROSE 200 MG in 0.9 % SODIUM CHLORIDE 100 ML IV SCH (08:32)
[2020-08-08] MEDS: ceFAZolin 1000MG 1,000 MG/7.5 ML SYR IV SCH ×2 (08:32→20:22)
[2020-08-08] MEDS: INSULIN ASPART 100 UNITS/ML 3 ML PEN SC SCH ×4 (08:33→21:29)
[2020-08-08] MEDS: AMIODARONE 200 MG TAB PO SCH ×2 (08:34→20:35)
[2020-08-08] MEDS: DOCUSATE SODIUM 100 MG CAP PO SCH (08:34)
[2020-08-08] MEDS: GABAPENTIN 600 MG TAB PO SCH ×2 (08:35→20:36)
[2020-08-08] MEDS: PANTOprazole 40 MG TAB PO SCH (08:35)
[2020-08-08] MEDS: METOPROLOL SUCC 50MG EXT REL TAB PO SCH (08:35)
[2020-08-08] MEDS: INSULIN GLARGINE SOLOSTAR 100 UNITS/ML 3 ML PEN SC SCH (08:36)
--- NOTE | 2020-08-08 10:24 | Nephrology Progress Note ---
Date of Service August 08, 2020 Assessment & Plan (1) DANIEL (acute kidney injury): * DANIEL due to recent bacteremia (MSSA w/ spinal abscess), anemia (gluteal hematoma) - likely ATN * Cr has been stable at 2.3 since admission. Patient remains nonoliguric (net - 1.8 L overnight, net -12 L since admission). Electrolyte balance is acceptable. No acute indication for HD * No change in kidney function or diuretic dose over the last week. Patient continues to gradually mobilize peripheral edema. No further Nephrology evaluation indicated at this time. Will sign off. Please call if further assistance is needed. (2) CKD (chronic kidney disease): * Baseline creatinine 1.5 mg/dL * CKD attributed to DKD, obesity, and microvascular disease. + microalbuminuria (3) Anasarca: * Serum albumin 1.8 w/ 3rd spacing volume * Continue furosemide 80 mg IV BID w/ target 1L negative fluid balance/day (4) Anemia: * Gluteal hematoma - has required blood transfusions this admission * Iron saturation < 20% w/ low ferritin. Day #4 of 5 IV Venofer * Epogen 10,000 units SQ x1 administered 08/05/20 (5) Right heart failure: * Echocardiogram 08/03/20: LVEF 55-60%, mod MR, RVSP 30-40 mmHg, dilated IVC Admission and Anticipated Discharge Date Admission Date: July 30, 2020 Subjective Mrs. Mcbride was seen & examined in her hospital room this morning. She notes that her peripheral edema is mildly improved. She voices no new medical concerns Review of Systems Constitutional: + weakness; no fever Eyes: no problem reported Ear, Nose, Mouth, Throat: no problem reported Respiratory: no dyspnea Cardiovascular: + edema; no chest pain and no palpitations Gastrointestinal: no abdominal pain, no nausea and no diarrhea/loose stools Neurologic: no confusion Physical Exam Constitutional: + overweight; not in distress Eyes: PERRL, conjunctivae normal, anicteric sclerae ENMT: external ear and nose normal, oropharynx normal Neck: trachea midline, no thyromegaly Respiratory: normal respiratory effort, lungs clear to auscultation Cardiovascular: Rate/Rhythm: regular rate and regular rhythm Extremities: + edema (2+ bilateral pretibial edema, 1+ dependent edema of the arms) Gastrointestinal (Abdomen): normal bowel sounds, soft, nontender, no hepatosplenomegaly Musculoskeletal: Extremities: no cyanosis Neurologic: awake; not confused Results & Data ([facility]) Vital Signs (Past 12 Hours) Vital Signs Temp Pulse Resp BP Pulse Ox 08/08/20 08:30 37.2 C 73 20 156/71 H 93 08/08/20 07:26 37.1 C 70 21 144/64 H 91 08/07/20 23:31 36.8 C 66 18 125/70 94 Laboratory Tests 08/08/20 08/08/20 05:43 05:43 WBC 8.49 Hgb 8.7 L Hct 27.7 L Plt Count 279 Sodium 140 Potassium 3.5 Chloride 104 Carbon Dioxide 31 BUN 55 H Creatinine 2.25 H PG Care Time/CCT Total # of Minutes Spent Total Time Spent with Patient: Total time spent is greater than 50% in coordination of care (as documented) at patient's floor/unit and/or counseling patient: Coding Level of Care Code 37167 Subseq Hosp Care Lvl 3 Diagnoses DANIEL (acute kidney injury) N17.9 CKD (chronic kidney disease) N18.9 Chronic kidney disease stage: unspecified stage Anasarca R60.1 Anemia D64.9 Right heart failure I50.810 (1) CKD (chronic kidney disease) Chronic kidney disease stage: unspecified stage Qualified Code(s): N18.9 - Chronic kidney disease, unspecified
--- NOTE | 2020-08-08 10:39 | Pharmacy Report ---
Pharmacy Glycemic Short Note 2 - Date of Service August 08, 2020 - Glycemic Short BSG Results (Last 24 hours): 08/07/20 08/07/20 08/07/20 11:39 16:06 21:14 Glucose POC Glucose 99 105 H 108 H 08/08/20 08/08/20 05:43 08:22 Glucose 88 POC Glucose 110 H OUTPATIENT ANTIDIABETIC REGIMEN: * Lantus 25 units SC BID * HbA1c: 7% (06/24/20) ASSESSMENT: 08/08 * BSGs continue to be well-controlled, ranging 99-114 mg/dL * Received 16 units of insulin yesterday (8 units of basal and 8 units of prandial/correctional bolus) * Fasting BSG of 110 mg/dL this morning * Will likely continue current insulin orders today 08/06/20 * Ms Mcbride has been well-controlled on ~15 units or less of insulin per day. * No changes to insulin regimen in 3-4 days. * No changes required at this time. PLAN FOR INPATIENT GLYCEMIC CONTROL: * Basal insulin: * Lantus 8 units SQ daily * Bolus insulin * NovoLog per scale ACHS or Q6hrs while NPO * Goal Range: Low 100 mg/dL - High 140 mg/dL * Correction Factor: 30 mg/dL/unit * Nutritional / Prandial insulin per carb ratio of 1 unit per 12 grams CHO consumed PLAN FOR DISCHARGE: * Reasonable HbA1c goal for this patient based on age and comorbidities would be less than 8% * Given hypoglycemia, patient will likely require insulin dose reduction at discharge * Will continue to follow inpatient insulin needs and assess PO intake - will suggest changes as appropriate
[2020-08-08] MEDS: ATORVASTATIN 40 MG TAB PO SCH (20:36)
[2020-08-08] MEDS: QUEtiapine FUMARATE 25 MG TABLET PO SCH (20:36)
[2020-08-08] MEDS: CITALOPRAM 40 MG TAB PO SCH (20:36)
[2020-08-09 08:46] LABS: Basophils # (auto) 0.01 K/uL (0-0.2); Basophils % (auto) 0.1 %; Eosinophils # (auto) 0.29 K/uL (0-0.5); Eosinophils % (auto) 3.7 %; Hemoglobin 8.5 g/dL (12.0-16.0); Immature Granulocytes # (auto) 0.07 K/uL (0.00-0.02); Immature Granulocytes % (auto) 0.9 %; Lymphocytes % (auto) 17.7 %; Mean Corpuscular Hemoglobin 29.4 pg (25-34); Mean Corpuscular Hgb Conc 30.4 g/dL (32-36); Mean Corpuscular Volume 96.9 fL (80-100); Monocytes # (auto) 0.53 K/uL (0.11-0.59); Monocytes % (auto) 6.7 %; Neutrophils # (auto) 5.61 K/uL (1.4-6.5); Neutrophils % (auto) 70.9 %; Platelet Count 286 K/uL (130-400); RDW Coefficient of Variation 17.9 % (11.5-14.5); RDW Standard Deviation 63.5 fL (36.4-46.3); Red Blood Count 2.89 M/uL (4.2-5.4); White Blood Count 7.91 K/uL (4.8-10.8)
[2020-08-09] MEDS: ceFAZolin 1000MG 1,000 MG/7.5 ML SYR IV SCH ×2 (08:52→21:22)
[2020-08-09] MEDS: DOCUSATE SODIUM 100 MG CAP PO SCH (08:53)
[2020-08-09] MEDS: PANTOprazole 40 MG TAB PO SCH (08:53)
[2020-08-09] MEDS: AMIODARONE 200 MG TAB PO SCH ×2 (08:54→21:31)
[2020-08-09] MEDS: GABAPENTIN 600 MG TAB PO SCH ×2 (08:54→21:33)
[2020-08-09] MEDS: METOPROLOL SUCC 50MG EXT REL TAB PO SCH (08:54)
[2020-08-09] MEDS: ACETAMINOPHEN 500 MG TAB PO PRN (08:56)
[2020-08-09] MEDS: IRON SUCROSE 200 MG in 0.9 % SODIUM CHLORIDE 100 ML IV SCH (08:57)
[2020-08-09] MEDS: FUROSEMIDE 80 MG in SYRINGE 0 ML IV SCH ×2 (08:58→18:19)
[2020-08-09] MEDS: INSULIN ASPART 100 UNITS/ML 3 ML PEN SC SCH ×4 (09:01→22:35)
[2020-08-09] MEDS: INSULIN GLARGINE SOLOSTAR 100 UNITS/ML 3 ML PEN SC SCH (09:02)
[2020-08-09 09:08] LABS: Alanine Aminotransferase < 6 U/L (12-78); Albumin Level 1.7 gm/dl (3.4-5.0); Aspartate Aminotransferase 20 U/L (15-37); Blood Urea Nitrogen 60 mg/dl (7-18); Calcium 7.8 mg/dl (8.5-10.1); Carbon Dioxide 29 mmol/L (21-32); Chloride 105 mmol/L (98-107); Creatinine Clr Calc Pharmacy 25.6 ml/min; Est GFR (African American) 23.2 ml/min; Glucose 108 mg/dl (70-99); Potassium 3.4 mmol/L (3.5-5.1); Sodium 141 mmol/L (136-145)
[2020-08-09 09:11] LABS: Albumin Globulin Ratio 0.3 (0.9-2); Alkaline Phosphatase 74 U/L (45-117); Bilirubin,Total 0.3 mg/dl (0.2-1); Globulin 4.9 gm/dl (2.5-4.0); Total Protein 6.6 gm/dl (6.4-8.2)
--- NOTE | 2020-08-09 10:02 | Hospitalist Progress Note ---
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 Disposition: Celina was admitted with anasarca and acute blood loss anemia likely into a left gluteus/lower abdominal hematoma. She is maintaining good urine output with steady diuresis, anticipate several day course while monitoring kidney function and blood counts. Admit Weight: ~138.2kg Last Known Approx Dry Weight: ~115-120kg Daily weight approximately 126 kg Acute blood loss anemia On admission hemoglobin 6.1 from 8 Prior history of acute blood loss anemia after developing a large left gluteal hematoma Patient had been on therapeutic Lovenox dosing for PE A. fib since discharged from [facility] [place] [facility] 2 weeks prior to admission Assessment of hematoma difficult due to body habitus CTA/P on admission without evidence of bleeding, stool guaiac negative, hemodynamically stable on admission Received 2 units PRBC on admission, 1 additional unit evening of /2 Hemoglobin stable After risks/benefits discussion of Lovenox use for stroke prevention and A. fib versus her continued bleeding episodes in the last month Lovenox was discontinued CBC daily Iron infusion per nephrology recommendations (5 Day total course) Acute respiratory failure with hypoxia Acute on chronic CHF with additional colloid infusion EKG without ST or T wave changes, troponin negative on admission Steady diuresis with Lasix 80 mg IV twice daily, net ~-1L goal per day Nephrology consulted. Lasix, IV iron and Epogen per nephrology accommodations. Signed off, appreciate recommendations SPO2 goal greater than 88%, titrate nasal cannula as needed Patient was unable to tolerate CPAP at night Anasarca Acute on chronic diastolic CHF as noted above, weight increased 19 kg over 4 weeks Severe hypoalbuminemia.Patient hypoalbuminemic to 1.8 with third spacing, Discussed boost with the patient. Diuresis as above Nephrology consulted, signed off. Appreciate recommendations Daily weights, I's and O's, sodium restricted diet Dopplers No DVT within the right or left lower extremity. Boost and nutritional support as above Improved with compression hosing, continue at this time Airway aspiration Patient with one episode of airway aspiration 07/31 with tachypnea and gurgling, spontaneously resolved CXR post event unchanged from prior Continue minced and moist, C[employer]S CONSULTANT consulted and showed no evidence of aspiration on bedside swallow Low-grade fever self resolved, blood cultures no growth, patient was on empiric ertapenem which was discontinued Acute on chronic CHF Management as above Hematoma Left gluteal hematoma and left lower abdomen hematoma Worsen bleeding 2 episodes in the setting of Lovenox injections Acute blood loss anemia management as above, Lovenox discontinued after risk benefits discussion Hypoalbuminemia As above, dietary consult Continues to be hypoalbuminemic to 1.7 on 08/09 CKD Creatinine baseline approximately 1.21.5 Creatinine stable Nephrology consulted Diuresis as above Gabapentin renally dose adjusted Hyperlipidemia Continue atorvastatin Diabetes mellitus, type II 06/19 hemoglobin A1c 7.0% Continue Lantus/SSI Diabetic diet Hypertension Stable Continue home metoprolol MSSA bacteremia Patient with history of MSSA bacteremia, history of lumbar spinal abscess requiring IR drainage Continue cefazolin, patient with anticipated course through 08/[address] line in place Patient has outpatient follow-up to infectious disease Cultures for low-grade fever as above, repeat cultures no growth A. fib Patient with history of A. fib with RVR Sinus rhythm today Continue amiodarone, metoprolol home regimen Asthma Continue fluticasone/Vilanterol Albuterol/DuoNebs as needed Anxiety Continue citalopram Chronic low back pain With history of lumbar spinal abscess drainage as above Gabapentin as above Tylenol as needed as above Oxycodone as needed for breakthrough DVT prophylaxis Contraindicated in the setting of acute blood loss anemia. SCDs CODE STATUS: Conditional code, patient wishes for CPR in the setting of arrest but with no intubation (2) Acute respiratory failure with hypoxia: (3) Anasarca: (4) Aspiration into airway: (5) CHF (congestive heart failure): (6) Hematoma: (7) CKD (chronic kidney disease): (8) Hyperlipidemia: (9) MSSA bacteremia: (10) Atrial fibrillation: (11) Asthma: (12) Anxiety: Admission and Anticipated Discharge Date Admission Date: July 30, 2020 Supervising Physician Co-Signing Physician Notes Patient seen and examined with Dr. Casas. I agree with his exam findings, review of systems, assessment and plan. I have personally reviewed the lab work and imaging from today. negative 1500mL for past 24 hours, Cr is 2.23, Hb is stable, no signs of bleeding no chest pain, no fever, no dyspnea I updated her daughter on the phone, discussed that I would want her here through the weekend for diuresis should be ready Wednesday/Wednesday Exam: obese, no distress, legs edematous lungs CTA bilaterally, no increased work of breathing heart regular S1 and S2, no murmurs, + 2 pitting edema abdomen soft, NT, ND, + BS no neurological deficits AAOx3 A/P: - Volume overload, CKD: continue Lasix 80mg IV BID, responding well, negative balance still every day Cr is 2.23 target weight is about 120kg, would keep her here the weekend on Lasix IV and plan for discharge Wednesday/Wednesday - Anemia: no further signs of blood loss, Hb is > 8 family planning on getting her into the same SNF to be together, CM has been in close contact with them Subjective Gopi is seen at the bedside this morning. She reports she continues to feel much better. "I feel so much better, if I had not come in I might not have made it to today ". She reports a swelling in her legs and arms continues to go down. She denies shortness of breath, chest pain, and extremity pain at time of assessment. She reports she continues to have some back pain consistent with what is normal for her, in which she does not think she needs any additional treatment at this time. No additional questions or concerns at time of assessment. Review of Systems Review of Systems: All systems reviewed & are unremarkable except as noted in HPI & below Physical Exam Physical Exam: General: A&Ox3. NAD. Cooperative. HEENT: Atraumatic, normocephalic. Visual acuity and hearing grossly intact. Pulm: Diminished in bases, mild bibasilar crackles, moderate air movement. Symmetrical chest rise. No increase work of breathing. No respiratory distress. Cardiac: RRR, systolic murmur appreciated. Radial pulses intact and symmetrical. Extremity: Anasarca with bilateral upper and lower extremity continues to persist, gradually improving. Radial and PT pulses intact and symmetrical. Compression hoses on legs bilaterally, slight increased pedal edema where hoses and at the ankle, hoses extended to MCP joint. No calf tenderness. Results & Data Results & Data ([facility]) Vital Signs (Past 12 Hours) Vital Signs Temp Pulse Resp BP Pulse Ox 08/09/20 07:16 36.9 C 75 16 132/65 92 08/08/20 22:53 37.2 C 67 16 154/73 H 94 Resident Activity Tracking Resident Involvement: Resident Care Provided Care Provided: Adult Hospital Medicine (1) CHF (congestive heart failure) Heart failure chronicity: unspecified Heart failure type: unspecified Qualified Code(s): I50.9 - Heart failure, unspecified (2) CKD (chronic kidney disease) Chronic kidney disease stage: unspecified stage Qualified Code(s): N18.9 - Chronic kidney disease, unspecified
--- NOTE | 2020-08-09 21:24 | Billing Data ---
Date of Service August 09, 2020 Coding Level of Care Code 75644 Subseq Hosp Care Lvl 2
--- NOTE | 2020-08-09 21:24 | Billing Data ---
Date of Service August 08, 2020 Coding Level of Care Code 16200 Subseq Hosp Care Lvl 2
[2020-08-09] MEDS: ATORVASTATIN 40 MG TAB PO SCH (21:32)
[2020-08-09] MEDS: QUEtiapine FUMARATE 25 MG TABLET PO SCH (21:33)
[2020-08-09] MEDS: CITALOPRAM 40 MG TAB PO SCH (21:34)
[2020-08-10 06:29] LABS: Basophils # (auto) 0.02 K/uL (0-0.2); Basophils % (auto) 0.3 %; Eosinophils # (auto) 0.38 K/uL (0-0.5); Eosinophils % (auto) 5.3 %; Hematocrit (blood only) 28.9 % (37-47); Hemoglobin 8.8 g/dL (12.0-16.0); Immature Granulocytes # (auto) 0.08 K/uL (0.00-0.02); Immature Granulocytes % (auto) 1.1 %; Lymphocytes # (auto) 1.58 K/uL (1.2-3.4); Mean Corpuscular Hgb Conc 30.4 g/dL (32-36); Mean Corpuscular Volume 95.4 fL (80-100); Monocytes # (auto) 0.61 K/uL (0.11-0.59); Monocytes % (auto) 8.5 %; Neutrophils # (auto) 4.51 K/uL (1.4-6.5); Neutrophils % (auto) 62.8 %; Platelet Count 281 K/uL (130-400); RDW Coefficient of Variation 18.2 % (11.5-14.5); RDW Standard Deviation 63.6 fL (36.4-46.3); Red Blood Count 3.03 M/uL (4.2-5.4); White Blood Count 7.18 K/uL (4.8-10.8)
[2020-08-10 06:51] LABS: BUN Creatinine Ratio 25.5 (10-20); Calcium 7.6 mg/dl (8.5-10.1); Creatinine Clr Calc Pharmacy 27.3 ml/min; Est GFR (African American) 25.1 ml/min; Est GFR (Non-African American) 21.7 ml/min; Potassium 3.1 mmol/L (3.5-5.1)
[2020-08-10] MEDS: FUROSEMIDE 80 MG in SYRINGE 0 ML IV SCH ×2 (09:02→18:08)
[2020-08-10] MEDS: INSULIN ASPART 100 UNITS/ML 3 ML PEN SC SCH ×4 (09:16→23:28)
[2020-08-10] MEDS: INSULIN GLARGINE SOLOSTAR 100 UNITS/ML 3 ML PEN SC SCH (09:17)
[2020-08-10] MEDS: AMIODARONE 200 MG TAB PO SCH ×2 (09:20→21:32)
[2020-08-10] MEDS: DOCUSATE SODIUM 100 MG CAP PO SCH ×2 (09:21→09:40)
[2020-08-10] MEDS: GABAPENTIN 600 MG TAB PO SCH ×2 (09:21→21:32)
[2020-08-10] MEDS: METOPROLOL SUCC 50MG EXT REL TAB PO SCH (09:21)
[2020-08-10] MEDS: POTASSIUM CHLORIDE 20 MEQ/15 ML UDC PO SCH ×3 (09:22→13:15)
[2020-08-10] MEDS: PANTOprazole 40 MG TAB PO SCH (09:22)
--- NOTE | 2020-08-10 09:40 | Pharmacy Report ---
Pharmacy Glycemic Short Note 2 - Date of Service August 10, 2020 - Glycemic Short BSG Results (Last 24 hours): 08/09/20 08/09/20 08/09/20 12:14 17:24 21:02 Glucose POC Glucose 133 H 118 H 131 H 08/10/20 08/10/20 05:58 08:00 Glucose 108 H POC Glucose 135 H OUTPATIENT ANTIDIABETIC REGIMEN: * Lantus 25 units SC BID * HbA1c: 7% (06/24/20) ASSESSMENT: 08/10 * Pt has received 12 units of insulin over the past 24hrs * 8 units of basal with Lantus * 4 units of bolus with NovoLog * BSGs [phone] mg/dl * All BSGs in goal range with current orders, PO intake adequate. No changes needed today 08/08 * BSGs continue to be well-controlled, ranging 99-114 mg/dL * Received 16 units of insulin yesterday (8 units of basal and 8 units of prandial/correctional bolus) * Fasting BSG of 110 mg/dL this morning * Will likely continue current insulin orders today 08/06/20 * Ms Mcbride has been well-controlled on ~15 units or less of insulin per day. * No changes to insulin regimen in 3-4 days. * No changes required at this time. PLAN FOR INPATIENT GLYCEMIC CONTROL: * Basal insulin: * Lantus 8 units SQ daily * Bolus insulin * NovoLog per scale ACHS or Q6hrs while NPO * Goal Range: Low 100 mg/dL - High 140 mg/dL * Correction Factor: 30 mg/dL/unit * Nutritional / Prandial insulin per carb ratio of 1 unit per 12 grams CHO consumed PLAN FOR DISCHARGE: * Reasonable HbA1c goal for this patient based on age and comorbidities would be less than 8% * Given hypoglycemia, patient will likely require insulin dose reduction at [facility] * Will continue to follow inpatient insulin needs and assess PO intake - will suggest changes as appropriate
[2020-08-10] MEDS: ceFAZolin 1000MG 1,000 MG/7.5 ML SYR IV SCH ×2 (09:46→21:25)
--- NOTE | 2020-08-10 13:03 | Hospitalist Progress Note ---
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 Disposition: Celina was admitted with anasarca and acute blood loss anemia likely into a left gluteus/lower abdominal hematoma. She is maintaining good urine output with steady diuresis, anticipate several day course while monitoring kidney function and blood counts. Plan for discharge to SNF early next week. Admit Weight: ~138.2kg Last Known Approx Dry Weight: ~115-120kg Daily weight approximately 126 kg Acute blood loss anemia, resolved On admission hemoglobin 6.1 from 8 Prior history of acute blood loss anemia after developing a large left gluteal hematoma Patient had been on therapeutic Lovenox dosing for A. fib since discharged from [facility] 2 weeks prior to admission Assessment of hematoma difficult due to body habitus CTA/P on admission without evidence of bleeding, stool guaiac negative, hemodynamically stable on admission Received 2 units PRBC on admission, 1 additional unit evening of 07/31 After risks/benefits discussion of Lovenox use for stroke prevention and A. fib versus her continued bleeding episodes in the last month Lovenox was discontinued CBC daily Iron infusion per nephrology recommendations (5 Day total course); completed on 08/09/20 No further signs of bleeding, Hgb stale at 8.8 today Hematoma Left gluteal hematoma and left lower abdomen hematoma Worsen bleeding 2 episodes in the setting of Lovenox injections Acute blood loss anemia management as above, Lovenox discontinued after risk benefits discussion Acute respiratory failure with hypoxia in setting of Acute on chronic CHF exacerbation, and CKD Acute on chronic CHF with additional colloid infusion EKG without ST or T wave changes, troponin negative on admission Steady diuresis with Lasix 80 mg IV twice daily, net ~-1L goal per day -- negative 2641 mL over past 24 hours SPO2 goal greater than 88%, titrate nasal cannula as needed Patient unable to tolerate CPAP at night Nephrology consulted. Lasix, IV iron and Epogen per nephrology recommendations. Signed off, appreciate recommendations Creatinine baseline approximately 1.21.5; Creatinine stable and is 2.09 today (improved from 2.23 yesterday) Nephrology consulted. Lasix, IV iron and Epogen per nephrology recommendations. Signed off, appreciate recommendations Gabapentin renally dose adjusted Goal weight is 120kg; currently at 126kg Anasarca Acute on chronic diastolic CHF as noted above, weight increased 19 kg over 4 weeks Severe hypoalbuminemia.Patient hypoalbuminemic to 1.8 with third spacing, Discussed boost with the patient. Diuresis as above Nephrology consulted, signed off. Appreciate recommendations Daily weights, I's and O's, sodium restricted diet US venous doppler studies 08/03: No DVT within the right or left lower extremity. Boost and nutritional support as above Improved with compression hosing, continue at this time Airway aspiration Patient with one episode of airway aspiration 07/31 with tachypnea and gurgling, spontaneously resolved CXR post event unchanged from prior Continue minced and moist, ANIMAL REHABILITATOR consulted and showed no evidence of aspiration on bedside swallow Low-grade fever self resolved, blood cultures no growth, patient was on empiric ertapenem which was discontinued MSSA bacteremia Patient with history of MSSA bacteremia, history of lumbar spinal abscess requiring IR drainage Continue cefazolin, patient with anticipated course through 08/[address] line in place Patient has outpatient follow-up to infectious disease Cultures for low-grade fever as above, repeat cultures no growth A. fib Patient with history of A. fib with RVR Sinus rhythm now Continue amiodarone, metoprolol home regimen Hypokalemia Potassium of 3.1 today Repleted with a total of 60 mEq of K Recheck BMP tomorrow AM and continue to replete as indicated Hypoalbuminemia As above, dietary consult Continues to be hypoalbuminemic to 1.7 on 08/09 Hyperlipidemia Continue atorvastatin Diabetes mellitus, type II 06/19 hemoglobin A1c 7.0% Continue Lantus/SSI Diabetic diet Hypertension Stable Continue home metoprolol Asthma Continue fluticasone/Vilanterol Albuterol/DuoNebs as needed Anxiety Continue citalopram Chronic low back pain With history of lumbar spinal abscess drainage as above Gabapentin as above Tylenol as needed as above Oxycodone as needed for breakthrough DVT prophylaxis Contraindicated in the setting of acute blood loss anemia. SCDs CODE STATUS: Conditional code, patient wishes for CPR in the setting of arrest but with no intubation (2) Acute respiratory failure with hypoxia: (3) Anasarca: (4) Aspiration into airway: (5) CHF (congestive heart failure): (6) Hematoma: (7) CKD (chronic kidney disease): (8) Hyperlipidemia: (9) MSSA bacteremia: (10) Atrial fibrillation: (11) Asthma: (12) Anxiety: Admission and Anticipated Discharge Date Admission Date: July 30, 2020 Supervising Physician Co-Signing Physician Notes Resident Physician Supervision Note: I independently interviewed and examined the patient and verified the cleaning history and physical, reviewed labs and image studies and agree with resident Abraham Magallanes findings and care plan. Subjective Patient seen and evaluated at bedside this AM. States that she is overall feeling "much better." Swelling is slowly improving but is now most prominent in the RUE. She reports that the compression stockings are significantly helping the BLE. Patient complains of "diarrhea" but upon further discussion with RN, states that it is more of a fecal incontinence but the stool is formed and not diarrhea. Patient has no other complaints or concerns. Denies CP, SOB, abdominal pain, n/v, [place], lightheadedness, dizziness, or leg pain. Review of Systems Review of Systems: See HPI Physical Exam Physical Exam: GENERAL: No acute distress. Well developed and well nourished. Vital signs reviewed as above. HENT: Moist mucous membranes. RESPIRATORY: Diminished breath sounds in bilateral lower bases with some mild crackles bilaterally. No increased work of breathing. Able to speak in full sentences without increased respiratory effort. CARDIOVASCULAR: Regular rate and rhythm. ABDOMEN: Soft, non-tender and non-distended. Normal bowel sounds. EXTREMITIES: Diffuse anasarca in BUE (RUE > LUE) and BLE. BLE are 2+ but impro anne marie with compression hoses to knees b/l. No calf tenderness to deep squeeze bilaterally. SKIN: Warm, dry. NEUROLOGIC: A/O x3. No focal neurological deficits. PSYCHIATRIC: Cooperative. Appropriate mood and affect. Results & Data Results & Data ([facility]) Vital Signs (Past 12 Hours) Vital Signs Temp Pulse Resp BP Pulse Ox 08/10/20 11:47 36.2 C L 66 18 138/68 95 08/10/20 09:20 62 08/10/20 07:42 36.6 C 59 L 18 142/76 H 92 Resident Activity Tracking Resident Involvement: Resident Care Provided Care Provided: Adult Hospital Medicine (1) CHF (congestive heart failure) Heart failure chronicity: unspecified Heart failure type: unspecified Qualified Code(s): I50.9 - Heart failure, unspecified (2) CKD (chronic kidney disease) Chronic kidney disease stage: unspecified stage Qualified Code(s): N18.9 - Chronic kidney disease, unspecified
[2020-08-10] MEDS: ACETAMINOPHEN 500 MG TAB PO PRN (18:08)
[2020-08-10] MEDS: CITALOPRAM 40 MG TAB PO SCH (21:32)
[2020-08-10] MEDS: ATORVASTATIN 40 MG TAB PO SCH (21:33)
[2020-08-10] MEDS: QUEtiapine FUMARATE 25 MG TABLET PO SCH (21:33)
[2020-08-11 06:32] LABS: Basophils # (auto) 0.02 K/uL (0-0.2); Basophils % (auto) 0.3 %; Eosinophils # (auto) 0.44 K/uL (0-0.5); Eosinophils % (auto) 5.5 %; Hematocrit (blood only) 29.1 % (37-47); Hemoglobin 8.7 g/dL (12.0-16.0); Immature Granulocytes # (auto) 0.06 K/uL (0.00-0.02); Immature Granulocytes % (auto) 0.8 %; Lymphocytes # (auto) 1.78 K/uL (1.2-3.4); Lymphocytes % (auto) 22.3 %; Mean Corpuscular Hemoglobin 29.1 pg (25-34); Mean Corpuscular Hgb Conc 29.9 g/dL (32-36); Mean Corpuscular Volume 97.3 fL (80-100); Mean Platelet Volume 9.4 fL (7.4-10.4); Monocytes % (auto) 7.5 %; Neutrophils % (auto) 63.6 %; Platelet Count 298 K/uL (130-400); RDW Coefficient of Variation 18.2 % (11.5-14.5); RDW Standard Deviation 64.7 fL (36.4-46.3); Red Blood Count 2.99 M/uL (4.2-5.4)
[2020-08-11 06:52] LABS: BUN Creatinine Ratio 25.9 (10-20); Calcium 7.5 mg/dl (8.5-10.1); Creatinine Clr Calc Pharmacy 27.4 ml/min; Est GFR (African American) 25.8 ml/min; Est GFR (Non-African American) 22.3 ml/min; Potassium 3.7 mmol/L (3.5-5.1)
--- NOTE | 2020-08-11 08:50 | Pharmacy Report ---
Pharmacy Glycemic Short Note 2 - Date of Service August 11, 2020 - Glycemic Short BSG Results (Last 24 hours): 08/10/20 08/10/20 08/10/20 12:02 17:27 20:44 Glucose POC Glucose 212 H 130 H 134 H 08/11/20 08/11/20 05:36 08:02 Glucose 108 H POC Glucose 124 H OUTPATIENT ANTIDIABETIC REGIMEN: * Lantus 25 units SC BID * HbA1c: 7% (06/24/20) ASSESSMENT: 08/11 * Pt has received 18 units of insulin over the past 24hrs * 8 units of basal with Lantus * 10 units of bolus with NovoLog * BSGs [phone] mg/dl * One BSG out of range yesterday - BSG = 212 mg/dl prior to lunch. This is atypical based on the last ~ 2 weeks of BSG data; will not make any changes at this time. 08/10 * Pt has received 12 units of insulin over the past 24hrs * 8 units of basal with Lantus * 4 units of bolus with NovoLog * BSGs [phone] mg/dl * All BSGs in goal range with current orders, PO intake adequate. No changes needed today 08/08 * BSGs continue to be well-controlled, ranging 99-114 mg/dL * Received 16 units of insulin yesterday (8 units of basal and 8 units of prandial/correctional bolus) * Fasting BSG of 110 mg/dL this morning * Will likely continue current insulin orders today 08/06/20 * Ms Mcbride has been well-controlled on ~15 units or less of insulin per day. * No changes to insulin regimen in 3-4 days. * No changes required at this time. PLAN FOR INPATIENT GLYCEMIC CONTROL: no changes needed at this time. * Basal insulin: * Lantus 8 units SQ daily * Bolus insulin * NovoLog per scale ACHS or Q6hrs while NPO * Goal Range: Low 100 mg/dL - High 140 mg/dL * Correction Factor: 30 mg/dL/unit * Nutritional / Prandial insulin per carb ratio of 1 unit per 12 grams CHO consumed PLAN FOR DISCHARGE: * Reasonable HbA1c goal for this patient based on age and comorbidities would be less than 8% * Given hypoglycemia, patient will likely require insulin dose reduction at discharge * Will continue to follow inpatient insulin needs and assess PO intake - will suggest changes as appropriate * Pt is doing very well on Lantus 8 units SQ QAM + NovoLog 3 units with about 2 meals per day.
[2020-08-11] MEDS: PANTOprazole 40 MG TAB PO SCH (09:17)
[2020-08-11] MEDS: GABAPENTIN 600 MG TAB PO SCH ×2 (09:17→21:12)
[2020-08-11] MEDS: AMIODARONE 200 MG TAB PO SCH ×2 (09:17→21:11)
[2020-08-11] MEDS: METOPROLOL SUCC 50MG EXT REL TAB PO SCH (09:17)
[2020-08-11] MEDS: ceFAZolin 1000MG 1,000 MG/7.5 ML SYR IV SCH ×2 (09:17→21:06)
[2020-08-11] MEDS: INSULIN GLARGINE SOLOSTAR 100 UNITS/ML 3 ML PEN SC SCH (09:18)
[2020-08-11] MEDS: DOCUSATE SODIUM 100 MG CAP PO SCH (09:18)
[2020-08-11] MEDS: FUROSEMIDE 80 MG in SYRINGE 0 ML IV SCH ×2 (09:18→18:05)
[2020-08-11] MEDS: INSULIN ASPART 100 UNITS/ML 3 ML PEN SC SCH ×4 (09:23→22:44)
[2020-08-11] MEDS: ACETAMINOPHEN 500 MG TAB PO PRN (09:37)
--- NOTE | 2020-08-11 10:45 | Hospitalist Progress Note ---
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 Acute blood loss anemia, resolved On admission hemoglobin 6.1 from 8 Prior history of acute blood loss anemia after developing a large left gluteal hematoma Patient had been on therapeutic Lovenox dosing for A. fib since discharged from [facility] 2 weeks prior to admission CTA/P on admission without evidence of bleeding, stool guaiac negative, hemodynamically stable on admission Received 2 units PRBC on admission, 1 additional unit evening of 07/31 After risks/benefits discussion of Lovenox use for stroke prevention and A. fib versus her continued bleeding episodes in the last month Lovenox was discontinued Iron infusion per nephrology recommendations (5 Day total course); completed on 08/09/20 No further signs of bleeding, Hgb stale at 8.7 today Hematoma Left gluteal hematoma and left lower abdomen hematoma, in the setting of Lovenox injections Acute blood loss anemia management as above, Lovenox discontinued after risk benefits discussion Acute respiratory failure with hypoxia in setting of Acute on chronic CHF exacerbation, and CKD Acute on chronic CHF with additional colloid infusion EKG without ST or T wave changes, troponin negative on admission Steady diuresis with Lasix 80 mg IV twice daily, net ~-1L goal per day -- negative 1.5L over past 24 hours SPO2 goal greater than 88%, titrate nasal cannula as needed Patient unable to tolerate CPAP at night Nephrology consulted. Lasix, IV iron and Epogen per nephrology recommendations. Signed off, appreciate recommendations Creatinine baseline approximately 1.21.5; Creatinine stable and is 2.04 today Gabapentin renally dose adjusted Goal weight is 120kg; currently at 126kg Anasarca US venous doppler studies 08/03: No DVT within the right or left lower extremity. Boost and nutritional support Improved with compression hosing, continue at this time Airway aspiration Patient with one episode of airway aspiration 07/31 with tachypnea and gurgling, spontaneously resolved CXR post event unchanged from prior Continue minced and moist, CANE BURNER consulted and showed no evidence of aspiration on bedside swallow MSSA bacteremia Patient with history of MSSA bacteremia, history of lumbar spinal abscess requiring IR drainage Cultures for low-grade fever as above, repeat cultures no growth Continue cefazolin, patient with anticipated course through 08/[address] line in place Patient has outpatient follow-up to infectious disease A. fib Patient with history of A. fib with RVR Sinus rhythm now Continue amiodarone, metoprolol home regimen Hypoalbuminemia As above, dietary consult Continues to be hypoalbuminemic to 1.7 on 08/09 Hyperlipidemia Continue atorvastatin Diabetes mellitus, type II 06/19 hemoglobin A1c 7.0% Continue Lantus/SSI Diabetic diet Hypertension Stable Continue home metoprolol Asthma Continue fluticasone/Vilanterol Albuterol/DuoNebs as needed Anxiety Continue citalopram Chronic low back pain With history of lumbar spinal abscess drainage as above Gabapentin as above Tylenol as needed as above Oxycodone as needed for breakthrough FEN/GI: DM2, minced/moist DVT ppx: SCDs, no pharmacologic therapy in the setting of acute blood loss anemia CODE STATUS: Conditional code, patient wishes for CPR in the setting of arrest but with no intubation Dispo: med/surg, pending placement to [facility] tentatively planned for 08/13 Admission and Anticipated Discharge Date Admission Date: July 30, 2020 Supervising Physician Co-Signing Physician Notes Resident Physician Supervision Note: I independently interviewed and examined the patient and verified the cleaning history and physical, reviewed labs and image studies and agree with resident Dr. López findings and care plan. Subjective No acute events overnight. Had BM x2, non-bloody. Reports markedly improved LE swelling over the course of this hospitalization. Denies fever/chills, chest pain, palpitations, cough, SOB, N/V, abdominal pain, rash. Review of Systems Review of Systems: Pertinent positives and negatives mentioned in HPI. Physical Exam Physical Exam: General: A&Ox3. NAD. Cooperative. HEENT: Atraumatic, normocephalic. Pulm: Mildly labored breathing, Decreased air entry bilaterally but no wheezes or crackles. Cardiac: RRR, -mrg. Radial pulses intact and symmetrical. Abdominal: soft, non-tender, non-distended, BS x 4 Ext: Anasarca with trace pitting edema in BUEs and 1-2+ pitting edema in BLEs up to thighs. Skin: warm, dry, no rash Results & Data Results & Data ([facility]) Vital Signs (Past 12 Hours) Vital Signs Temp Pulse Resp BP Pulse Ox 08/11/20 07:17 36.8 C 70 16 122/62 91 08/10/20 23:13 36.9 C 79 20 119/61 95 Resident Activity Tracking Resident Involvement: Resident Care Provided Care Provided: Adult [facility]
[2020-08-11] MEDS: QUEtiapine FUMARATE 25 MG TABLET PO SCH (21:10)
[2020-08-11] MEDS: ATORVASTATIN 40 MG TAB PO SCH (21:11)
[2020-08-11] MEDS: CITALOPRAM 40 MG TAB PO SCH (21:11)
[2020-08-12] MEDS: AMIODARONE 200 MG TAB PO SCH ×2 (08:38→21:40)
[2020-08-12] MEDS: ACETAMINOPHEN 500 MG TAB PO PRN ×2 (08:38→21:38)
[2020-08-12] MEDS: GABAPENTIN 600 MG TAB PO SCH ×2 (08:39→21:40)
[2020-08-12] MEDS: METOPROLOL SUCC 50MG EXT REL TAB PO SCH (08:39)
[2020-08-12] MEDS: PANTOprazole 40 MG TAB PO SCH (08:39)
[2020-08-12] MEDS: DOCUSATE SODIUM 100 MG CAP PO SCH (08:40)
[2020-08-12] MEDS: FUROSEMIDE 80 MG in SYRINGE 0 ML IV SCH ×2 (08:40→17:53)
[2020-08-12] MEDS: ceFAZolin 1000MG 1,000 MG/7.5 ML SYR IV SCH ×2 (08:43→19:34)
[2020-08-12 08:58] LABS: Basophils # (auto) 0.02 K/uL (0-0.2); Basophils % (auto) 0.2 %; Eosinophils # (auto) 0.47 K/uL (0-0.5); Eosinophils % (auto) 5.2 %; Hematocrit (blood only) 29.2 % (37-47); Hemoglobin 8.9 g/dL (12.0-16.0); Immature Granulocytes # (auto) 0.04 K/uL (0.00-0.02); Immature Granulocytes % (auto) 0.4 %; Lymphocytes # (auto) 1.57 K/uL (1.2-3.4); Lymphocytes % (auto) 17.3 %; Mean Corpuscular Hemoglobin 29.6 pg (25-34); Mean Corpuscular Hgb Conc 30.5 g/dL (32-36); Mean Platelet Volume 9.2 fL (7.4-10.4); Monocytes # (auto) 0.64 K/uL (0.11-0.59); Neutrophils # (auto) 6.36 K/uL (1.4-6.5); Neutrophils % (auto) 69.9 %; Platelet Count 277 K/uL (130-400); RDW Coefficient of Variation 18.1 % (11.5-14.5); RDW Standard Deviation 64.1 fL (36.4-46.3); Red Blood Count 3.01 M/uL (4.2-5.4)
--- NOTE | 2020-08-12 09:18 | Medical Student H&P ---
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 Hypertension - Patient's blood pressure was elevated at admission (141/121) and has been fluctuating throughout her hospital course. - Patient's current blood pressure is 177/83, up from 125/87 yesterday. - Repeat blood pressure measurement Acute anemia On admission hemoglobin was 6.1 down from her baseline of 8. History of blood loss anemia after developing a large left gluteal hematoma. Patient had been on therapeutic Lovenox dosing for A. fib for 2 weeks prior to admission. CTA/P on admission without evidence of bleeding, stool guaiac negative, hemodynamically stable on admission. Received 2 units PRBC on admission, 1 additional unit evening of 07/31. Lovenox was discontinued after evaluating risks vs benefits. Iron infusion per nephrology recommendations (5 Day total course); completed on 08/09/20. - Epogen was recommended per Nephrology. Hgb is 8.9, up from 8.7 yesterday. Continue daily Hgb check. Hematoma - Patient developed a left gluteal and abdominal hematoma 2/2 her Lovenox injections. - Hematoma is currently resolving per physical exam. - Lovenox has been stopped after examining risks vs benefits. - Hgb is back to patient's baseline. - Continue daily Hgb checks and monitor for hematoma resolution. Acute respiratory failure with hypoxia in setting of Acute on chronic CHF exacerbation and CKD Acute on chronic CHF with additional colloid infusion. EKG without ST or T wave changes, troponin negative on admission. SPO2 is currently 91%, above her goal SPO2 of 88%. Patient unable to tolerate CPAP at night. Creatinine baseline approximately 1.21.5; Creatinine has been downtrending since admission. 2.01 today down from 2.04 yesterday. Gabapentin renally dose adjusted. - Na is 140, K is 3.5, Cl is 103. Goal weight is 120kg; currently at 122.1kg Steady diuresis with Lasix IV twice daily. - Continue to daily comprehensive metabolic panel. - Consider discharge to rehab centre when within 1 kg of dry weight Airway aspiration Patient experienced one episode of aspiration 07/31 with tachypnea and gurgling which resolved without any intervention CXR post aspiration was unremarkable Continue minced and moist diet. MSSA bacteremia Patient with history of MSSA bacteremia and history of lumbar spinal abscess requiring IR drainage. Cultures for low-grade fever as above, repeat cultures no growth. Patient is receiving IV cefazolin. Continue IV cefazolin through 08/16 and follow up with infectious disease at discharge. A. fib Patient with history of A. fib with RVR Sinus rhythm overnight and now. Continue amiodarone and metoprolol. Hypoalbuminemia As above, dietary consult Continues to be hypoalbuminemic to 1.7 on 08/09 Hyperlipidemia Continue atorvastatin Diabetes mellitus, type II 06/19 hemoglobin A1c 7.0%, Continue Lantus/SSI and daily fasting glucose checks. Diabetic diet. Asthma Continue fluticasone/Vilanterol Albuterol/DuoNebs as needed Anxiety Continue citalopram Chronic low back pain With history of lumbar spinal abscess drainage as above Gabapentin as above Tylenol as needed as above Oxycodone as needed for breakthrough FEN/GI: Electrolytes are normal,minced/moist DM2 diet DVT ppx: SCDs, no pharmacologic therapy in the setting of hematoma CODE STATUS: Conditional code, patient wishes for CPR in the setting of arrest but with no intubation Dispo: med/surg, pending placement to [facility] tentatively planned for 08/13 Admission and Anticipated Discharge Date Admission Date: July 30, 2020 History of Present Illness Primary Care Provider: [facility] Patient is an 80 y/o F currently on HOD 14 after admission for shortness of breath, difficulty ambulating and anemia. Patient states being in her usual state of health until about 2 weeks ago when she started experiencing difficulty breathing at home. She states that this difficulty breathing was so pronounced she couldn't wake up from the cough and walk around her house. An ambulance was called which brought the patient to the ED. At the ED, Labs were drawn which showed that the patient's Hgb was 6.1, down from her baseline of 8. A CT was performed which didn't show any evidence of bleeding. An EKG was performed which didn't show any ST or T wave changes and her Troponin levels were negative. Patient was subsequently admitted for acute exacerbation of CHF and anemia. Today, patient's state feeling overall fine and wants to go home. She ack nowledges mild SOB but denies any chest pain. Allergies Allergy/AdvReac Type Severity Reaction Status Date / Time bee venom protein (honey bee) Allergy Severe SWELLING Verified 07/30/20 14:27 SOB iodine Allergy Severe RASH; Verified 07/30/20 14:27 SHORTNESS OF BREATH codeine Allergy Intermediate SWELLING Verified 07/30/20 14:27 metformin Allergy Intermediate Diarrhea Verified 07/30/20 14:27 Penicillins Allergy Intermediate RASH/HIVES Verified 07/30/20 14:27 chocolate flavor Allergy Mild Diarrhea Verified 07/30/20 14:27 procaine Allergy Mild NOVOCAINE-R Verified 07/30/20 14:27 AKILAH Cephalosporins Allergy Unknown UNKNOWN Verified 07/30/20 14:27 clarithromycin Allergy Unknown Unknown Verified 07/30/20 14:27 shellfish derived Allergy Unknown Unknown Verified 07/30/20 14:27 Home Medications Medication Instructions Recorded Confirmed Type ipratropium bromide 21 mcg (0.03 2 sprays INTNAS TID PRN #30 ml 10/28/18 07/30/20 Rx %) nasal spray Lift Chair #1 ea 03/09/19 05/29/20 Rx aspirin 81 mg tablet,delayed 81 mg PO DAILY 05/02/19 07/30/20 History release potassium chloride 10 mEq 10 meq PO QAM #90 tab 08/31/19 07/30/20 Rx tablet,extended release atorvastatin 40 mg tablet 40 mg PO HS #90 tab 10/12/19 07/30/20 Rx lancets 30 gauge #100 ea 11/15/19 05/29/20 Rx meloxicam 7.5 mg tablet 7.5 mg PO BID PRN #60 tab 12/19/19 07/30/20 Rx docusate sodium 100 mg capsule 200 mg PO DAILY #60 cap 12/27/19 07/30/20 Rx insulin syringe-needle U-100 0.3 #100 ea 01/29/20 05/29/20 Rx mL 31 gauge x 5/16" flash glucose sensor #1 ea 03/14/20 05/29/20 Rx flash glucose scanning reader #1 ea 03/26/20 05/29/20 Rx nitroglycerin 0.4 mg sublingual 0.4 mg SUBLINGUAL Q5M PRN #25 tab 05/16/20 07/30/20 Rx tablet albuterol sulfate 2.5 mg INH QID PRN 06/23/20 07/30/20 History amiodarone 200 mg PO BID 07/30/20 07/30/20 History cefazolin 1 g IV Q12H 07/30/20 07/30/20 History citalopram [Celexa] 40 mg PO QPM 07/30/20 07/30/20 History enoxaparin 130 mg SUBCUT Q12 07/30/20 07/30/20 History furosemide 40 mg PO QAM 07/30/20 07/30/20 History gabapentin [Neurontin] 1,200 mg PO BID 07/30/20 07/30/20 History insulin glargine [Lantus U-100 25 unit SUBCUT BID 07/30/20 07/30/20 History Insulin] metoprolol succinate 50 mg PO DAILY 07/30/20 07/30/20 History pantoprazole [Protonix] 40 mg PO QAM 07/30/20 07/30/20 History quetiapine [Seroquel] 25 mg PO HS 07/30/20 07/30/20 History Past Med/Surg History Medical History (Updated 08/04/20 @ 11:29 by Elijah Jansen MD) Anasarca Anxiety Asthma RARELY NEEDS PRN INH Atrial fibrillation Paroxysmal, not on anticoagulation. Per cardio 12/25/15, "since she has not had a paroxysmal for many years, no therapy will be initiated today. Given her elevated CHADSVASC score, though, would recommend anticoagulation therapy if she were to develop any recurrent episodes of A. fib in the future." Chronic back pain Chronic chest pain Has been evaluated by cardio, ruled to be non-cardiac in origin. 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 HgA1C 6.6% 05/03/18 Diverticular disease Hiatal hernia History of right breast cancer S/P RT MASTECTOMY, + CHEMO/RADIATION Hypercholesteremia Hyperlipidemia Lower back pain Microscopic hematuria Migraine Morbid obesity Myocardial Infarction > 20 YEARS AGO Nonobstructive atherosclerosis of coronary artery Per cath 2008 Osteoarthritis Surgical History Fusion of spine History of appendectomy History of back surgery [place] PRESENT History of bilateral tubal ligation History of breast biopsy History of cardiac cath 2008 [facility] for chest pain. Non-obstructive CAD. "Non-cardiac chest pain." History of carpal tunnel release BL History of cataract surgery History of cholecystectomy History of dilatation and curettage History of hysterectomy History of partial gastrectomy History of right mastectomy NO BP/IV RUE History of tonsillectomy History of tooth extraction History of total knee replacement BL History of total shoulder replacement RT Family History Sister Family history of diabetes mellitus Breast cancer Daughter Family history of reaction to anesthesia SLOW TO WAKE UP Grandfather (Maternal) Myocardial infarction Denies family history of Ovarian cancer Prostate cancer Colorectal cancer Social History Smoking Status: Never smoker Second Hand Exposure: No; Hx Alcohol Use: No Hx Substance Use: No Preferred Language: Mohawk Communication Ability: Effective Visual Impairment: No Limitations Hearing Ability: Normal Archeology Professor Required: No Beliefs That Will Affect Care: None marital status: Current Living Situation: Spouse and Rehab Current Living Situation Comment: Recently at rehab facility. 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 [employer] Feels Safe at Home: Yes Childhood Exposure to Second-Hand Smoke: No Dental Care, Regularly: No Physical Activity Frequency: Does not Exercise Seatbelt Use: always Sunscreen Use: No Assistive Devices: Denture - Upper and Denture - Lower Physical Exam Constitutional: WD/WN, vitals as above well developed, + ill appearing, + morbidly obese, + disheveled and + edematous Eyes: PERRL, conjunctivae normal, anicteric sclerae + anicteric sclerae ENMT: external ear and nose normal, oropharynx normal Neck: trachea midline, no thyromegaly normal visual inspection and + thick neck Respiratory: + labored breathing Auscultation: lungs clear to auscultation bilaterally, + diminished lung sounds and + crackles (Minor crackles in anterior lung) Cardiovascular: Rate/Rhythm: regular rate and regular rhythm Heart Sounds: normal S1 and normal S2 Extremities: normal capillary refill and + edema (Bilateral pitting edema in the upper and lower extremities) Chest (Breasts): Chest: normal inspection of chest Gastrointestinal (Abdomen): normal bowel sounds, soft, nontender, no hep atosplenomegaly Percussion/Palpation: abdomen soft; abdomen nontender Musculoskeletal: Head/Neck/Chest: normocephalic, head atraumatic and neck supple Extremities: extremities normal to inspection Skin: no rashes, warm and dry + ulcer (Right lateral chest wall 3 x 4 cm, no erythema) and + wound (Left lateral hip puncture wound) Neurologic: PERRL, EOMI, accommodation nl, no face palsy, no dysarthria CN's II-XI intact bilaterally, moves all extremities and awake Cranial Nerves: PERRL Psychiatric: A+Ox3, euthymic affect Genitourinary: + abnormal external appearance (Hess catheter in place draining loraine urine with sediment) Results & Data ([facility]) Vital Signs (Past 12 Hours) Vital Signs Temp Pulse Resp BP Pulse Ox 08/12/20 08:38 37.0 C 73 16 177/83 H 91 08/11/20 22:24 36.8 C 63 18 125/67 94 08/11/20 21:04 66 152/75 H
[2020-08-12 09:25] LABS: BUN Creatinine Ratio 25.5 (10-20); Calcium 7.6 mg/dl (8.5-10.1); Creatinine Clr Calc Pharmacy 27.8 ml/min; Est GFR (African American) 26.3 ml/min; Est GFR (Non-African American) 22.7 ml/min; Magnesium 1.7 mg/dl (1.8-2.4); Potassium 3.5 mmol/L (3.5-5.1)
[2020-08-12 09:26] LABS: Phosphorus 3.3 mg/dl (2.5-4.9)
[2020-08-12] MEDS: INSULIN GLARGINE SOLOSTAR 100 UNITS/ML 3 ML PEN SC SCH (09:39)
[2020-08-12] MEDS: INSULIN ASPART 100 UNITS/ML 3 ML PEN SC SCH ×4 (09:42→21:22)
--- NOTE | 2020-08-12 11:22 | Pharmacy Report ---
Pharmacy Glycemic Short Note 2 - Date of Service August 12, 2020 - Glycemic Short BSG Results (Last 24 hours): 08/11/20 08/11/20 08/11/20 11:53 17:17 20:46 Glucose POC Glucose 115 H 118 H 135 H 08/12/20 08/12/20 08:14 08:24 Glucose 110 H POC Glucose 125 H OUTPATIENT ANTIDIABETIC REGIMEN: * Lantus 25 units SC BID * HbA1c: 7% (06/24/20) ASSESSMENT: 08/12/20 * Pt has received 12 units of insulin over the past 24hrs * 8 units of basal with Lantus * 4 units of bolus with NovoLog * BSGs [phone] mg/dl * All BSGs in goal range with current orders, PO intake adequate. No changes needed today 08/11 * Pt has received 18 units of insulin over the past 24hrs * 8 units of basal with Lantus * 10 units of bolus with NovoLog * BSGs [phone] mg/dl * One BSG out of range yesterday - BSG = 212 mg/dl prior to lunch. This is atypical based on the last ~ 2 weeks of BSG data; will not make any changes at this time. 08/10 * Pt has received 12 units of insulin over the past 24hrs * 8 units of basal with Lantus * 4 units of bolus with NovoLog * BSGs [phone] mg/dl * All BSGs in goal range with current orders, PO intake adequate. No changes needed today PLAN FOR INPATIENT GLYCEMIC CONTROL: no changes needed at this time. * Basal insulin: * Lantus 8 units SQ daily * Bolus insulin * NovoLog per scale ACHS or Q6hrs while NPO * Goal Range: Low 100 mg/dL - High 140 mg/dL * Correction Factor: 30 mg/dL/unit * Nutritional / Prandial insulin per carb ratio of 1 unit per 12 grams CHO consumed PLAN FOR DISCHARGE: * Reasonable HbA1c goal for this patient based on age and comorbidities would be less than 8% * Given hypoglycemia, patient will likely require insulin dose reduction at discharge * Will continue to follow inpatient insulin needs and assess PO intake - will suggest changes as appropriate * Pt is doing very well on Lantus 8 units SQ QAM + NovoLog 3 units with about 2 meals per day (consider 2 units if eating less than 30 grams of carbohydrates with meal).
--- NOTE | 2020-08-12 16:11 | Medical Student Progress Note ---
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 Hypertension - Patient's blood pressure was elevated at admission (141/121) and has been fluctuating throughout her hospital course. - Patient's current blood pressure is 177/83, up from 125/87 yesterday. - Blood pressure at least q shift Acute anemia On admission hemoglobin was 6.1 down from her baseline of 8. History of blood loss anemia after developing a large left gluteal hematoma. Patient had been on therapeutic Lovenox dosing for A. fib for 2 weeks prior to admission. CTA/P on admission without evidence of bleeding, stool guaiac negative, hemodynamically stable on admission. Received 2 units PRBC on admission, 1 additional unit evening of 07/31. Lovenox was discontinued after evaluating risks vs benefits. Iron infusion per nephrology recommendations (5 Day total course); completed on 08/09/20. - Epogen was recommended per Nephrology. Hgb is 8.9, up from 8.7 yesterday. Continue daily Hgb check. Hematoma - Patient developed a left gluteal and abdominal hematoma 2/2 her Lovenox injections. - Hematoma is currently resolving per physical exam. - Lovenox has been stopped after examining risks vs benefits. - Hgb is back to patient's baseline. - Continue daily Hgb checks and monitor for hematoma resolution. Acute respiratory failure with hypoxia in setting of Acute on chronic CHF exacerbation and CKD Acute on chronic CHF with additional colloid infusion. EKG without ST or T wave changes, troponin negative on admission. SPO2 is currently 91%, above her goal SPO2 of 88%. Patient unable to tolerate CPAP at night. Creatinine baseline approximately 1.21.5; Creatinine has been downtrending since admission. 2.01 today down from 2.04 yesterday. Gabapentin renally dose adjusted. - Na is 140, K is 3.5, Cl is 103. Goal weight is 120kg; currently at 122.1kg Steady diuresis with Lasix IV twice daily. - Continue to daily comprehensive metabolic panel. - Consider discharge to rehab centre when within 1 kg of dry weight Airway aspiration Patient experienced one episode of aspiration 07/31 with tachypnea and gurgling which resolved without any intervention CXR post aspiration was unremarkable Continue minced and moist diet. MSSA bacteremia Patient with history of MSSA bacteremia and history of lumbar spinal abscess requiring IR drainage. Cultures for low-grade fever as above, repeat cultures no growth. Patient is receiving IV cefazolin. Continue IV cefazolin through 08/16 and follow up with infectious disease at discharge. A. fib Patient with history of A. fib with RVR Sinus rhythm overnight and now. Continue amiodarone and metoprolol. Hypoalbuminemia As above, dietary consult Continues to be hypoalbuminemic to 1.7 on 08/09 Hyperlipidemia Continue atorvastatin Diabetes mellitus, type II 06/19 hemoglobin A1c 7.0%, Continue Lantus/SSI and daily fasting glucose checks. Diabetic diet. Asthma Continue fluticasone/Vilanterol Albuterol/DuoNebs as needed Anxiety Continue citalopram Chronic low back pain With history of lumbar spinal abscess drainage as above Gabapentin as above Tylenol as needed as above Oxycodone as needed for breakthrough FEN/GI: Electrolytes are normal,minced/moist DM2 diet DVT ppx: SCDs, no pharmacologic therapy in the setting of hematoma CODE STATUS: Conditional code, patient wishes for CPR in the setting of arrest but with no intubation Dispo: med/surg, pending placement to [facility] tentatively planned for 08/13 Admission and Anticipated Discharge Date Admission Date: July 30, 2020 Supervising Attestation I also saw the patient with the medical student and resident physician and I completed a history and physical examination. 80-year-old female on hospital day #14 admitted with acute anemia, resolved with transfusion. The patient had been on therapeutic Lovenox for atrial fibrillation; she received units of packed red blood cells on the day of admission and has been stable in terms of her hemoglobin since that time. Her anticoagulation has been on hold given her anemia. She is slowly being diuresed. Her dry, home weight is thought to be 120 kg, today she is 122 kg. She feels well today; reports feeling at her baseline. She is hoping to go to [facility] tomorrow. Exam 129/72, 72, 18, 36.6, 95% on room air Pleasant. Nontoxic. No distress appreciated. Heart is regular at the time of our exam. Trace edema in the lower extremities; this is improved compared to prior examinations. Data Hemoglobin 8.9, platelet count 277 BUN 51, creatinine 2.01 Impression and plan Acute blood loss anemia Stable status post transfusion Hold anticoagulation Monitor hemoglobin Acute respiratory failure with hypoxia in the setting of acute on chronic CHF exacerbation CKD Nearing dry weight with slow diuresis Dry weight is 120 kg Monitor renal function during diuresis Atrial fibrillation Currently in sinus rhythm Anticoagulation on hold given anemia Noninsulin-dependent diabetes mellitus Diabetic diet Lantus with sliding scale insulin Hypoalbuminemia Hyperlipidemia Subjective Patient is an 80 y/o F currently on HOD 14 after admission for shortness of breath, difficulty ambulating and anemia. Patient states being in her usual state of health until about 2 weeks ago when she started experiencing difficulty breathing at home. She states that this difficulty breathing was so pronounced she couldn't wake up from the cough and walk around her house. An ambulance was called which brought the patient to the ED. At the ED, Labs were drawn which showed that the patient's Hgb was 6.1, down from her baseline of 8. A CT was performed which didn't show any evidence of bleeding. An EKG was performed which didn't show any ST or T wave changes and her Troponin levels were negative. Patient was subsequently admitted for acute exacerbation of CHF and anemia. Today, patient's state feeling overall fine and wants to go home. She acknowledges mild SOB but denies any chest pain. Review of Systems Review of Systems: All systems reviewed & are unremarkable except as noted in HPI & below Cardiovascular: + edema Physical Exam Constitutional: WD/WN, vitals as above + morbidly obese and + edematous Eyes: PERRL, conjunctivae normal, anicteric sclerae ENMT: external ear and nose normal, oropharynx normal Neck: normal visual inspection Respiratory: normal respiratory effort Auscultation: + diminished lung sounds, + crackles and + wheezes Cardiovascular: RRR, no murmur, no edema Heart Sounds: normal S1 and normal S2 Chest (Breasts): Chest: normal inspection of chest Gastrointestinal (Abdomen): normal bowel sounds, soft, nontender, no hepatosplenomegaly Musculoskeletal: no cyanosis or clubbing, extremities motor strength 5/5 Extremities: extremities normal to inspection Skin: no rashes, warm and dry Neurologic: PERRL, EOMI, accommodation nl, no face palsy, no dysarthria Psychiatric: A+Ox3, euthymic affect Orientation: alert and oriented x 3 Genitourinary: + abnormal external appearance (Hess catheter in place draining loraine urine with sediment) Results & Data ([facility]) Vital Signs (Past 12 Hours) Vital Signs Temp Pulse Resp BP Pulse Ox 08/12/20 08:38 37.0 C 73 16 177/83 H 91
[2020-08-12] MEDS: CITALOPRAM 40 MG TAB PO SCH (21:39)
[2020-08-12] MEDS: ATORVASTATIN 40 MG TAB PO SCH (21:40)
[2020-08-12] MEDS: QUEtiapine FUMARATE 25 MG TABLET PO SCH (21:40)
[2020-08-13 06:48] LABS: Basophils # (auto) 0.02 K/uL (0-0.2); Basophils % (auto) 0.2 %; Eosinophils # (auto) 0.53 K/uL (0-0.5); Eosinophils % (auto) 5.7 %; Hematocrit (blood only) 28.9 % (37-47); Hemoglobin 8.9 g/dL (12.0-16.0); Immature Granulocytes # (auto) 0.04 K/uL (0.00-0.02); Immature Granulocytes % (auto) 0.4 %; Lymphocytes # (auto) 1.66 K/uL (1.2-3.4); Lymphocytes % (auto) 17.9 %; Mean Corpuscular Hemoglobin 29.6 pg (25-34); Mean Corpuscular Hgb Conc 30.8 g/dL (32-36); Mean Platelet Volume 9.1 fL (7.4-10.4); Monocytes # (auto) 0.64 K/uL (0.11-0.59); Monocytes % (auto) 6.9 %; Neutrophils # (auto) 6.36 K/uL (1.4-6.5); Neutrophils % (auto) 68.9 %; Platelet Count 266 K/uL (130-400); RDW Coefficient of Variation 18.5 % (11.5-14.5); RDW Standard Deviation 64.3 fL (36.4-46.3); Red Blood Count 3.01 M/uL (4.2-5.4); White Blood Count 9.25 K/uL (4.8-10.8)
[2020-08-13 07:21] LABS: BUN Creatinine Ratio 23.7 (10-20); Calcium 7.4 mg/dl (8.5-10.1); Creatinine Clr Calc Pharmacy 28.3 ml/min; Est GFR (African American) 26.8 ml/min; Est GFR (Non-African American) 23.1 ml/min; Potassium 3.4 mmol/L (3.5-5.1)
--- NOTE | 2020-08-13 08:06 | Hospitalist Progress Note ---
Date of Service August 13, 2020 Assessment & Plan Admission and Anticipated Discharge Date Admission Date: July 30, 2020 Results & Data Results & Data ([facility]) Vital Signs (Past 12 Hours) Vital Signs Temp Pulse Resp BP Pulse Ox 08/13/20 07:09 36.6 C 66 16 124/63 91 08/12/20 23:17 36.7 C 67 20 108/68 90
--- NOTE | 2020-08-13 08:51 | Medical Student Progress Note ---
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 Hypertension - Patient's blood pressure was elevated at admission (141/121) and has been fluctuating throughout her hospital course. - Patient's current blood pressure is124/63, down from 177/83 yesterday. - Blood pressure at least q shift Acute anemia On admission hemoglobin was 6.1 down from her baseline of 8. History of blood loss anemia after developing a large left gluteal hematoma. Patient had been on therapeutic Lovenox dosing for A. fib for 2 weeks prior to admission. CTA/P on admission without evidence of bleeding, stool guaiac negative, hemodynamically stable on admission. Received 2 units PRBC on admission, 1 additional unit evening of 07/31. Lovenox was discontinued after evaluating risks vs benefits. Iron infusion per nephrology recommendations (5 Day total course); completed on 08/09/20. - Epogen was recommended per Nephrology. Hgb is 8.9, stable from yesterday. Continue daily Hgb check. Hematoma - Patient developed a left gluteal and abdominal hematoma 2/2 her Lovenox injections. - Hematoma is currently resolving per physical exam. - Lovenox has been stopped after examining risks vs benefits. - Hgb is back to patient's baseline. - Continue daily Hgb checks and monitor for hematoma resolution. Acute respiratory failure with hypoxia in setting of Acute on chronic CHF exacerbation and CKD Acute on chronic CHF with additional colloid infusion. EKG without ST or T wave changes, troponin negative on admission. SPO2 is currently 91%, above her goal SPO2 of 88%. Patient unable to tolerate CPAP at night. Creatinine baseline approximately 1.21.5; Creatinine has been downtrending since admission. 2.01 today down from 2.04 yesterday. Gabapentin renally dose adjusted. - Na is 140, K is 3.5, Cl is 103. Goal weight is 120kg; currently at 122.4kg Steady diuresis with Lasix IV twice daily. - Continue to daily comprehensive metabolic panel. - Consider discharge to rehab centre when within 1 kg of dry weight Airway aspiration Patient experienced one episode of aspiration 07/31 with tachypnea and gurgling which resolved without any intervention CXR post aspiration was unremarkable Continue minced and moist diet. MSSA bacteremia Patient with history of MSSA bacteremia and history of lumbar spinal abscess requiring IR drainage. Cultures for low-grade fever as above, repeat cultures no growth. Patient is receiving IV cefazolin. Continue IV cefazolin through 08/16 and follow up with infectious disease at discharge. A. fib Patient with history of A. fib with RVR Sinus rhythm overnight and now. Continue amiodarone and metoprolol. Hypoalbuminemia As above, dietary consult Continues to be hypoalbuminemic to 1.7 on 08/09 Hyperlipidemia Continue atorvastatin Diabetes mellitus, type II 06/19 hemoglobin A1c 7.0%, POC Glucose readings have been in the 120s Continue Lantus/SSI and daily fasting glucose checks. Diabetic diet. Asthma Continue fluticasone/Vilanterol Albuterol/DuoNebs as needed Anxiety Continue citalopram Chronic low back pain With history of lumbar spinal abscess drainage as above Gabapentin as above Tylenol as needed as above Oxycodone as needed for breakthrough FEN/GI: Electrolytes are normal,minced/moist DM2 diet DVT ppx: SCDs, no pharmacologic therapy in the setting of hematoma CODE STATUS: Conditional code, patient wishes for CPR in the setting of arrest but with no intubation Dispo: med/surg, pending placement to [facility] tentatively planned for 08/13 Admission and Anticipated Discharge Date Admission Date: July 30, 2020 Subjective Patient states feeling fine and has no complaints. She states that she is feeling overall better, getting enough sleep and her SOB has dramatically reduced as compared to admission. Review of Systems Cardiovascular: + edema Physical Exam Constitutional: WD/WN, vitals as above + morbidly obese and + edematous Eyes: PERRL, conjunctivae normal, anicteric sclerae ENMT: external ear and nose normal, oropharynx normal Neck: normal visual inspection Respiratory: normal respiratory effort Auscultation: + diminished lung sounds, + crackles and + wheezes Cardiovascular: RRR, no murmur, no edema Heart Sounds: normal S1 and normal S2 Chest (Breasts): Chest: normal inspection of chest Gastrointestinal (Abdomen): normal bowel sounds, soft, nontender, no hepatosplenomegaly Musculoskeletal: no cyanosis or clubbing, extremities motor strength 5/5 Extremities: extremities normal to inspection Skin: no rashes, warm and dry Neurologic: PERRL, EOMI, accommodation nl, no face palsy, no dysarthria Psychiatric: A+Ox3, euthymic affect Orientation: alert and oriented x 3 Genitourinary: + abnormal external appearance (Hess catheter in place draining loraine urine with sediment) Results & Data ([facility]) Vital Signs (Past 12 Hours) Vital Signs Temp Pulse Resp BP Pulse Ox 08/13/20 07:09 36.6 C 66 16 124/63 91 08/12/20 23:17 36.7 C 67 20 108/68 90
[2020-08-13] MEDS: METOPROLOL SUCC 50MG EXT REL TAB PO SCH (09:10)
[2020-08-13] MEDS: PANTOprazole 40 MG TAB PO SCH (09:10)
[2020-08-13] MEDS: GABAPENTIN 600 MG TAB PO SCH ×2 (09:10→21:09)
[2020-08-13] MEDS: AMIODARONE 200 MG TAB PO SCH ×2 (09:10→21:09)
[2020-08-13] MEDS: ceFAZolin 1000MG 1,000 MG/7.5 ML SYR IV SCH ×2 (09:11→21:04)
[2020-08-13] MEDS: DOCUSATE SODIUM 100 MG CAP PO SCH (09:11)
[2020-08-13] MEDS: FUROSEMIDE 80 MG in SYRINGE 0 ML IV SCH ×2 (09:11→18:29)
[2020-08-13] MEDS: INSULIN GLARGINE SOLOSTAR 100 UNITS/ML 3 ML PEN SC SCH (09:12)
[2020-08-13] MEDS: INSULIN ASPART 100 UNITS/ML 3 ML PEN SC SCH ×4 (09:15→22:13)
[2020-08-13] MEDS ORDERED: LOPERAMIDE HCL 2 MG CAP PO STA (14:02)
--- NOTE | 2020-08-13 17:55 | Hospitalist Progress Note ---
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 Acute anemia Hgb 6.1 on admission in the setting of blood loss anemia after developing a large left gluteal hematoma. Patient had been on therapeutic Lovenox dosing for A. fib for 2 weeks prior to admission. CTA/P on admission without evidence of bleeding, stool guaiac negative, hemodynamically stable on admission. Received 2 units pRBC on admission, 1 additional unit evening of 07/31. Lovenox was discontinued after evaluating risks vs benefits. Iron infusion per nephrology recommendations (5 Day total course); completed on 08/09/20. - Epogen was recommended per Nephrology. Hgb has been stable since transfusions. - Continue daily Hgb check. Diarrhea - Patient with three episodes of loose stool on 08/13 - Patient afebrile, abdomen nontender, no leukocytosis - C. diff test ordered - One-time dose of immodium given - BMP in AM, will continue to monitor Hematoma - Patient developed a left gluteal and abdominal hematoma 2/2 her Lovenox injections. - Hematoma is currently resolving per physical exam. - Lovenox has been stopped after examining risks vs benefits. - Hgb checks as above Acute respiratory failure with hypoxia, acute on chronic CHF exacerbation Acute on chronic CHF with additional colloid infusion. EKG without ST or T wave changes, troponin negative on admission. Patient satting well on RA Patient unable to tolerate CPAP at night. - Na is 140, K is 3.5, Cl is 103. Patient is just above goal weight (goal weight: 120kg) Upon discharge, resume patient's home lasix (40mg PO daily) CKD, DANIEL (resolved) - Diuresis as above Cr elevated on admission; normalized with gentle fluid administration - Renally dose meds Airway aspiration Patient experienced one episode of aspiration 07/31 with tachypnea; CXR post aspiration was unremarkable Continue minced and moist diet per speech MSSA bacteremia Patient with history of MSSA bacteremia and history of lumbar spinal abscess requiring IR drainage. Cultures for low-grade fever as above, repeat cultures no growth. Continue IV cefazolin (1g IV solution bid) through 08/16 A. fib Patient with history of A. fib with RVR Patient rate controlled, in sinus rhythm Continue amiodarone and metoprolol. Hypertension - Continue home metoprolol Hypoalbuminemia As above, dietary consult Continues to be hypoalbuminemic to 1.7 on 08/09 Hyperlipidemia Continue atorvastatin Diabetes mellitus, type II 06/19 hemoglobin A1c 7.0%, BSGs have been stable Continue Lantus/SSI and daily fasting glucose checks. Diabetic diet. Asthma Continue fluticasone/Vilanterol Albuterol/DuoNebs as needed Anxiety Continue citalopram Chronic low back pain With history of lumbar spinal abscess drainage as above Gabapentin as above Tylenol as needed as above Oxycodone as needed for breakthrough FEN: minced and moist diet Code status: DNR DVT ppx: heparin Dispo: med/surg tele Admission and Anticipated Discharge Date Admission Date: July 30, 2020 Supervising Physician Co-Signing Physician Notes I also saw the patient with the medical student and resident physician and I completed a history and physical examination. 80-year-old female on hospital day #15 admitted with acute anemia, resolved with transfusion. The patient had been on therapeutic Lovenox for atrial fibrillation; she received units of packed red blood cells on the day of admission and has been stable in terms of her hemoglobin since that time. Her anticoagulation has been on hold given her anemia. Unfortunately, just prior to discharge, the patient had a couple episodes of loose stool. the final episode at the time of her transport which has now pos tponed her discharge until tomorrow. She denies having any abdominal pain. She does report to occasionally having loose stools at home. Exam 124/70, 69, 16, 36.8, 99% on room air Pleasant. Nontoxic. No distress appreciated. Heart is regular at the time of our exam. Abdomen soft and nontender. Impression and plan Acute blood loss anemia Stable status post transfusion Hold anticoagulation Monitor hemoglobin Acute respiratory failure with hypoxia in the setting of acute on chronic CHF exacerbation CKD Nearing dry weight with slow diuresis Dry weight is 120 kg Monitor renal function during diuresis Episode of loose stool Reassuring abdominal exam Check C. difficile Atrial fibrillation Currently in sinus rhythm Anticoagulation on hold given anemia Subjective Patient seen and evaluated at bedside this morning. No acute events overnight. Patient feels well today and is eager for discharge. Patient developed diarrhea throughout the day which she says is normal for her. Denies fever, abdominal pain, blood in stool, nausea, vomiting, or poor appetite. Patient requested and was given immodium for her diarrhea. Unfortunately, when transport arrived to take patient to [facility], patient was being cleaned up from a loose BM in bed, and transport was unable to wait; this delayed patient's DC to [facility] to tomorrow. Patient denies CP, SOB, lightheadedness, dizziness, back pain, weakness, con fusion, or other symptoms. Review of Systems Review of Systems: See HPI Physical Exam Physical Exam: Constitutional: well-appearing, no acute distress HEENT: NCAT, no conjunctival injection CV: regular rhythm, no murmur appreciated, extremities well-perfused Resp: CTABL, no wheezes/rales/rhonchi appreciated, no increased work of breathing GI: soft, nondistended, nontender Skin: warm, dry, no rash appreciated Neuro: AOx4, no focal neurological deficits appreciated Results & Data Results & Data ([facility]) Vital Signs (Past 12 Hours) Vital Signs Temp Pulse Pulse Resp BP Pulse Ox 08/13/20 15:41 36.8 C 69 16 124/70 99 08/13/20 11:43 36.6 C 66 66 16 124/63 91 08/13/20 07:09 36.6 C 66 16 124/63 91 Resident Activity Tracking Resident Involvement: Resident Care Provided Care Provided: Adult Hospital Medicine
[2020-08-13] MEDS: POTASSIUM CHLORIDE CRTAB 20 MEQ TABCR PO SCH (21:08)
[2020-08-13] MEDS: ACETAMINOPHEN 500 MG TAB PO PRN (21:08)
[2020-08-13] MEDS: ATORVASTATIN 40 MG TAB PO SCH (21:09)
[2020-08-13] MEDS: CITALOPRAM 40 MG TAB PO SCH (21:09)
[2020-08-13] MEDS: QUEtiapine FUMARATE 25 MG TABLET PO SCH (21:09)
[2020-08-14 06:32] LABS: Basophils # (auto) 0.02 K/uL (0-0.2); Basophils % (auto) 0.2 %; Eosinophils # (auto) 0.57 K/uL (0-0.5); Eosinophils % (auto) 6.3 %; Hematocrit (blood only) 29.5 % (37-47); Immature Granulocytes # (auto) 0.03 K/uL (0.00-0.02); Immature Granulocytes % (auto) 0.3 %; Lymphocytes # (auto) 1.56 K/uL (1.2-3.4); Lymphocytes % (auto) 17.3 %; Mean Corpuscular Hemoglobin 29.3 pg (25-34); Mean Corpuscular Hgb Conc 30.5 g/dL (32-36); Mean Corpuscular Volume 96.1 fL (80-100); Mean Platelet Volume 9.4 fL (7.4-10.4); Monocytes # (auto) 0.64 K/uL (0.11-0.59); Monocytes % (auto) 7.1 %; Neutrophils % (auto) 68.8 %; Platelet Count 270 K/uL (130-400); RDW Coefficient of Variation 18.4 % (11.5-14.5); RDW Standard Deviation 64.5 fL (36.4-46.3); Red Blood Count 3.07 M/uL (4.2-5.4); White Blood Count 9.02 K/uL (4.8-10.8)
[2020-08-14 07:03] LABS: BUN Creatinine Ratio 23.9 (10-20); Calcium 7.2 mg/dl (8.5-10.1); Creatinine Clr Calc Pharmacy 28.2 ml/min; Est GFR (African American) 27.3 ml/min; Est GFR (Non-African American) 23.5 ml/min; Potassium 2.9 mmol/L (3.5-5.1)
[2020-08-14] MEDS: ACETAMINOPHEN 500 MG TAB PO PRN (07:44)
[2020-08-14] MEDS ORDERED: POTASSIUM CHLORIDE CRTAB 20 MEQ TABCR PO SCH (08:30)
[2020-08-14] MEDS: INSULIN ASPART 100 UNITS/ML 3 ML PEN SC SCH (09:27)
[2020-08-14] MEDS: INSULIN GLARGINE SOLOSTAR 100 UNITS/ML 3 ML PEN SC SCH (09:28)
[2020-08-14] MEDS: ceFAZolin 1000MG 1,000 MG/7.5 ML SYR IV SCH (09:43)
[2020-08-14] MEDS ORDERED: MAGNESIUM SULFATE / D5W 1 GM/100 ML BAG IV SCH (09:45)
[2020-08-14] MEDS: DOCUSATE SODIUM 100 MG CAP PO SCH (09:51)
[2020-08-14] MEDS: FUROSEMIDE 80 MG in SYRINGE 0 ML IV SCH (09:51)
[2020-08-14] MEDS: GABAPENTIN 600 MG TAB PO SCH (09:52)
[2020-08-14] MEDS: METOPROLOL SUCC 50MG EXT REL TAB PO SCH (09:52)
[2020-08-14] MEDS: PANTOprazole 40 MG TAB PO SCH (09:52)
[2020-08-14] MEDS: POTASSIUM CHLORIDE CRTAB 20 MEQ TABCR PO SCH (09:53)
[2020-08-14] MEDS: AMIODARONE 200 MG TAB PO SCH (09:53)
[2020-08-14] MEDS: POTASSIUM CHLORIDE / WTR 10 MEQ/100 ML PLCT IV SCH ×2 (10:27→11:35)
[2020-08-14 11:59] LABS: BUN Creatinine Ratio 24.1 (10-20); Calcium 7.6 mg/dl (8.5-10.1); Creatinine Clr Calc Pharmacy 27.4 ml/min; Est GFR (African American) 26.3 ml/min; Est GFR (Non-African American) 22.7 ml/min; Potassium 3.6 mmol/L (3.5-5.1)
[2020-08-14 12:50] LABS: BUN Creatinine Ratio 24.7 (10-20); Calcium 7.6 mg/dl (8.5-10.1); Creatinine Clr Calc Pharmacy 27.4 ml/min; Est GFR (African American) 26.3 ml/min; Est GFR (Non-African American) 22.7 ml/min; Magnesium 1.9 mg/dl (1.8-2.4); Potassium 3.6 mmol/L (3.5-5.1)
--- NOTE | 2020-08-14 17:06 | Discharge Summary ---
Date of Service August 14, 2020 Admission HPI Per Admitting Provider 80 yo female who comes into the hospital for acute blood loss anemia. She was recently admitted to [facility] for MSSA bacteremia and abscess of lumbar spine. Patient reports feeling well and was only brought in due to low hemoglobin. Patient also had a hemoglobin of 6.9 on 07/26. Admission Exam Per Admitting Provider General: patient resting comfortably, NAD, non-toxic in appearance, AA&O x 4 Skin: warm, dry, intact, HEENT: NC/AT, PERRL, EOMI, anicteric sclera, conjunctiva without injection, external ear normal to inspection and nontender, nares patent, dry mucus membranes, dentition intact, no oropharyngeal lesions, neck supple, trachea midline, no LAD, no thyromegaly, no JVD Heart: +S1/S2, regular, no m/r/g Lungs: equal air entry bilaterally, no rales/rhonchi/wheezes Abd: +BS, Left lower quandrant: skin folds appear hard (feels like hematoma), LLQ tender to palpation, no masses/organomegaly/ascites Ext: warm, 2+ pulses in UE/LE bilaterally, no clubbing/cyanosis or edema Neuro: nonfocal, patient AA&O x 4, speech intact, no facial droop, moving all extremities on command with equal strength 5/5 Principal Diagnosis Acute blood loss anemia Discharge Exam Constitutional: well-appearing, no acute distress HEENT: NCAT, no conjunctival injection CV: regular rhythm, no murmur appreciated, extremities well-perfused Resp: CTABL, no wheezes/rales/rhonchi appreciated, no increased work of breathing GI: soft, nondistended, nontender Skin: warm, dry, no rash appreciated Neuro: AOx4, no focal neurological deficits appreciated Discharge Data Allergies Allergy/AdvReac Type Severity Reaction Status Date / Time bee venom protein (honey bee) Allergy Severe SWELLING Verified 07/30/20 14:27 SOB iodine Allergy Severe RASH; Verified 07/30/20 14:27 SHORTNESS OF BREATH codeine Allergy Intermediate SWELLING Verified 07/30/20 14:27 metformin Allergy Intermediate Diarrhea Verified 07/30/20 14:27 Penicillins Allergy Intermediate RASH/HIVES Verified 07/30/20 14:27 chocolate flavor Allergy Mild Diarrhea Verified 07/30/20 14:27 procaine Allergy Mild NOVOCAINE-R Verified 07/30/20 14:27 AKILAH Cephalosporins Allergy Unknown UNKNOWN Verified 07/30/20 14:27 clarithromycin Allergy Unknown Unknown Verified 07/30/20 14:27 shellfish derived Allergy Unknown Unknown Verified 07/30/20 14:27 Consultations 07/30/20 14:31 ED Decision to Admit Stat 08/01/20 11:35 Consult Nephrology Routine Ordered Studies 07/31/20 06:00 CT abd pelvis wo con Routine 08/03/20 12:08 US venous doppler [facility] Urgent Hospital Course (1) Acute blood loss anemia: Patient is an 80-year-old female with a past medical history of asthma, anxiety, atrial fibrillation, 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 Acute anemia Hgb 6.1 on admission in the setting of blood loss anemia after developing a large left gluteal hematoma. Patient had been on therapeutic Lovenox dosing for A. fib for 2 weeks prior to admission. CTA/P on admission without evidence of bleeding, stool guaiac negative, hemodynamically stable on admission. Received 2 units pRBC on admission, 1 additional unit evening of 07/31. Lovenox was discontinued after evaluating risks vs benefits. Iron infusion per nephrology recommendations (5 Day total course); completed on 08/09/20. - Epogen was recommended per Nephrology. Hgb has been stable since transfusions. - Monitor CBC biweekly Hypokalemia - pt with an episode of acute hypokalemia to 2.9 following diarrhea x1 day and diuretic treatment - Appropriately increased following repletion to 3.6, mg low and also repleted - Repeat BMP in 3-5 days, - Continue daily 20meQ KCL BID repletion while diuresing, consider dose increase if diarrhea returns Hematoma - Patient developed a left gluteal and abdominal hematoma 2/2 her Lovenox injections. - Hematoma is currently resolving per physical exam. - Lovenox has been stopped after examining risks vs benefits. - Hgb checks as above Acute respiratory failure with hypoxia, acute on chronic CHF exacerbation Acute on chronic CHF with additional colloid infusion. EKG without ST or T wave changes, troponin negative on admission. Patient satting well on RA Patient unable to tolerate CPAP at night. Patient is just above goal weight (goal weight: 120kg) Upon discharge, resume patient's home lasix (40mg PO daily) CKD, DANIEL (resolved) - Diuresis as above Cr elevated on admission; normalized with gentle fluid administration - Renally dose meds Airway aspiration Patient experienced one episode of aspiration 07/31 with tachypnea; CXR post aspiration was unremarkable Continue minced and moist diet per speech MSSA bacteremia Patient with history of MSSA bacteremia and history of lumbar spinal abscess requiring IR drainage. Cultures for low-grade fever as above, repeat cultures no growth. Continue IV cefazolin (1g IV solution bid) through 08/16 A. fib Patient with history of A. fib with RVR Patient rate controlled, in sinus rhythm Continue amiodarone and metoprolol. Hypertension - Continue home metoprolol Hypoalbuminemia As above, dietary consult Continues to be hypoalbuminemic to 1.7 on 08/09 Hyperlipidemia Continue atorvastatin Diabetes mellitus, type II 06/19 hemoglobin A1c 7.0%, BSGs have been stable Continue Lantus/SSI and daily fasting glucose checks. Diabetic diet. Asthma Continue fluticasone/Vilanterol Albuterol/DuoNebs as needed Anxiety Continue citalopram Chronic low back pain With history of lumbar spinal abscess drainage as above Gabapentin as above Tylenol as needed as above Oxycodone as needed for breakthrough Total Time Total Time Spent Total Time Spent (In Minutes): See attending documentation Discharge Plan Discharge Items Patient Disposition: Transfer [facility] Reason For Visit: ANEMIA Discharge Diagnosis: Anemia Activity: Resume your previous activity Non-emergency contact: Primary Care Provider Call non-emergency contact if: your symptoms worsen Follow-up/Referrals: [facility] [Primary Care Provider] - Diet: Regular Addtl Attending Provider Instructions: Patient is an 80-year-old female with a past medical history of asthma, anxiety, atrial fibrillation, 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 Acute anemia Hgb 6.1 on admission in the setting of blood loss anemia after developing a large left gluteal hematoma. Patient had been on therapeutic Lovenox dosing for A. fib for 2 weeks prior to admission. CTA/P on admission without evidence of bleeding, stool guaiac negative, hemodynamically stable on admission. Received 2 units pRBC on admission, 1 additional unit evening of 07/31. Lovenox was discontinued after evaluating risks vs benefits. Iron infusion per nephrology recommendations (5 Day total course); completed on 08/09/20. - Epogen was recommended per Nephrology. Hgb has been stable since transfusions. - Monitor CBC biweekly Hypokalemia - pt with an episode of acute hypokalemia to 2.9 following diarrhea x1 day and diuretic treatment - Appropriately increased following repletion to 3.6, mg low and also repleted - Repeat BMP in 3-5 days, - Continue daily 20meQ KCL BID repletion while diuresing, consider dose increase if diarrhea returns Hematoma - Patient developed a left gluteal and abdominal hematoma 2/2 her Lovenox injections. - Hematoma is currently resolving per physical exam. - Lovenox has been stopped after examining risks vs benefits. - Hgb checks as above Acute respiratory failure with hypoxia, acute on chronic CHF exacerbation Acute on chronic CHF with additional colloid infusion. EKG without ST or T wave changes, troponin negative on admission. Patient satting well on RA Patient unable to tolerate CPAP at night. Patient is just above goal weight (goal weight: 120kg) Upon discharge, resume patient's home lasix (40mg PO daily) CKD, DANIEL (resolved) - Diuresis as above Cr elevated on admission; normalized with gentle fluid administration - Renally dose meds Airway aspiration Patient experienced one episode of aspiration 07/31 with tachypnea; CXR post aspiration was unremarkable Continue minced and moist diet per speech MSSA bacteremia Patient with history of MSSA bacteremia and history of lumbar spinal abscess requiring IR drainage. Cultures for low-grade fever as above, repeat cultures no growth. Continue IV cefazolin (1g IV solution bid) through 08/16 A. fib Patient with history of A. fib with RVR Patient rate controlled, in sinus rhythm Continue amiodarone and metoprolol. Hypertension - Continue home metoprolol Hypoalbuminemia As above, dietary consult Continues to be hypoalbuminemic to 1.7 on 08/09 Hyperlipidemia Continue atorvastatin Diabetes mellitus, type II 06/19 hemoglobin A1c 7.0%, BSGs have been stable Continue Lantus/SSI and daily fasting glucose checks. Diabetic diet. Asthma Continue fluticasone/Vilanterol Albuterol/DuoNebs as needed Anxiety Continue citalopram Chronic low back pain With history of lumbar spinal abscess drainage as above Gabapentin as above Tylenol as needed as above Oxycodone as needed for breakthrough Pending Studies at Discharge: No Stand-Alone Forms: My [facility] Skilled Items Patient informed of condition?: Yes DNR: No Discharge Level of Care: Skilled Communicable Disease: No Discharge Prognosis: Stable Lines: PICC Urinary Catheter: Yes Medications and DC Order Prescriptions: New cefazolin 1 gram recon soln 1 g IV Q12H 3 Days Qty: 6 RF: 0 Continued ipratropium bromide 0.03 % spray,non-aerosol 2 sprays INTNAS TID PRN (Reason: allergy symptoms) Qty: 30 RF: 2 potassium chloride [Klor-Con 10] 10 mEq tablet extended release 10 meq PO QAM Qty: 90 RF: 3 atorvastatin [Lipitor] 40 mg tablet 40 mg PO HS Qty: 90 RF: 3 (DME) lancets [OneTouch Delica Plus Lancet] 30 gauge misc See Rx Instructions .ROUTE .MEDSUPPLY Qty: 100 RF: 3 meloxicam 7.5 mg tablet 7.5 mg PO BID PRN (Reason: Pain) Qty: 60 RF: 11 docusate sodium 100 mg capsule 200 mg PO DAILY Qty: 60 RF: 11 (DME) insulin syringe-needle U-100 [BD Insulin Syringe Ultra-Fine] 0.3 mL 31 gauge x 5/16" syringe See Rx Instructions .ROUTE .MEDSUPPLY Qty: 100 RF: 3 (DME) FreeStyle Vanessa 14 Day Sensor Kit See Rx Instructions .ROUTE .MEDSUPPLY Qty: 1 RF: 0 (DME) FreeStyle Vanessa 14 Day [place] Misc See Rx Instructions .ROUTE .MEDSUPPLY Qty: 1 RF: 0 nitroglycerin 0.4 mg tablet, sublingual 0.4 mg sublingual Q5M PRN (Reason: chest pain) Qty: 25 RF: 3 aspirin [Adult Aspirin Regimen] 81 mg tablet,delayed release (DR/EC) 81 mg PO DAILY RF: 0 (DME) Lift Chair Misc See Rx Instructions .ROUTE .MEDSUPPLY Qty: 1 RF: 0 albuterol sulfate 2.5 mg /3 mL (0.083 %) solution for nebulization 2.5 mg INH QID PRN (Reason: SOB) RF: 0 amiodarone 200 mg Tablet 200 mg PO BID RF: 0 furosemide 40 mg tablet 40 mg PO QAM RF: 0 gabapentin [Neurontin] 600 mg tablet 1,200 mg PO BID RF: 0 Lantus U-100 Insulin 100 unit/mL solution 25 unit subcut BID RF: 0 citalopram [Celexa] 40 mg tablet 40 mg PO QPM RF: 0 metoprolol succinate 50 mg tablet extended release 24 hr 50 mg PO DAILY RF: 0 pantoprazole [Protonix] 40 mg tablet,delayed release (DR/EC) 40 mg PO QAM RF: 0 quetiapine [Seroquel] 25 mg Tablet 25 mg PO HS RF: 0 Discontinued enoxaparin 300 mg/3 mL Solution 130 mg SUBCUT Q12 RF: 0 cefazolin 1 gram recon soln 1 g IV Q12H RF: 0 Discharge Orders: Discharge Order (Routine); Ordered 08/14/20 Ordered By: Umang Lilly/Other Patient Handouts: ED Shortness of Breath (Dyspnea) Admission Data Admit Date/Time: 07/30/20 16:12 Attending Provider: Glenroy Pillai Admit Provider: Bret Baker Primary Care Provider: [facility] Other Providers: Annabelle Bashir ; Bret Baker ; Andrew Dhillon ; Johan Siddiqi Other Interventions: Discharge Summary Assessment (RN) Last Done: 08/13/20 11:43 Supervising Physician Co-Signing Physician Notes I also saw the patient with the medical student and resident physician and I completed a history and physical examination. She has had no recurrence of her loose stools since yesterday. She is feeling well without complaints this morning. She is looking forward to discharge. Exam 136/65, 69, 19, 37.1, 95% on room air Pleasant. Nontoxic. No distress appreciated. Heart is regular at the time of our exam. Abdomen soft and nontender. Data Hemoglobin 9.0 Potassium this morning was 2.9; repeat after repletion 3.6. Impression and plan Acute blood loss anemia Stable status post transfusion Hold anticoagulation Monitor hemoglobin as outpatient Acute respiratory failure with hypoxia in the setting of acute on chronic CHF exacerbation CKD Nearing dry weight with slow diuresis Resume home doses; monitor renal function Episode of loose stool/hypokalemia (resolved) Repeat BMP as outpatient Atrial fibrillation Currently in sinus rhythm Anticoagulation on hold given anemia Resident Activity Tracking Resident Involvement: Resident Care Provided Care Provided: Adult Hospital Medicine
== END 2020-08-14 13:43 | DRG 811 ==
LOC: ED 11:34 → SUATTDRO 16:12 → 2S 16:12 → 3W 08-07 16:33

== ENCOUNTER 2020-09-06 10:26 | Inpatient (IN) ==
[2020-09-06] MEDS ORDERED: SODIUM CHLORIDE 0.9% 1000ML 1,000 ML IV SCH (10:45)
[2020-09-06 11:27] LABS: Basophils # (auto) 0.01 K/uL (0-0.2); Basophils % (auto) 0.1 %; Eosinophils # (auto) 0.15 K/uL (0-0.5); Eosinophils % (auto) 1.4 %; Hematocrit (blood only) 32.3 % (37-47); Hemoglobin 9.7 g/dL (12.0-16.0); Immature Granulocytes # (auto) 0.04 K/uL (0.00-0.02); Immature Granulocytes % (auto) 0.4 %; Lymphocytes # (auto) 1.66 K/uL (1.2-3.4); Lymphocytes % (auto) 15.7 %; Mean Corpuscular Hemoglobin 28.8 pg (25-34); Mean Corpuscular Volume 95.8 fL (80-100); Mean Platelet Volume 9.4 fL (7.4-10.4); Monocytes # (auto) 0.96 K/uL (0.11-0.59); Monocytes % (auto) 9.1 %; Neutrophils # (auto) 7.75 K/uL (1.4-6.5); Neutrophils % (auto) 73.3 %; Platelet Count 243 K/uL (130-400); RDW Coefficient of Variation 15.8 % (11.5-14.5); RDW Standard Deviation 55.5 fL (36.4-46.3); Red Blood Count 3.37 M/uL (4.2-5.4); White Blood Count 10.57 K/uL (4.8-10.8)
[2020-09-06 11:37] LABS: INR 1.1 (0.9-1.1); Partial Thromboplastin Time 25.4 Seconds (21.0-31.0); Prothrombin Time 10.8 Seconds (9.0-12.0)
[2020-09-06 11:47] LABS: BUN Creatinine Ratio 20.9 (10-20); Calcium 7.8 mg/dl (8.5-10.1); Creatinine Clr Calc Pharmacy 29.3 ml/min; Est GFR (African American) 29.7 ml/min; Est GFR (Non-African American) 25.6 ml/min; Potassium 3.8 mmol/L (3.5-5.1)
--- NOTE | 2020-09-06 11:54 | Emergency Department Note ---
History of Present Illness General Chief complaint: Infection, Wound Stated complaint: OPEN WOUNDS ON R BREAST AND L BUTTOCKS Time Seen by Provider: 09/06/20 10:40 History of Present Illness Provider complaint: Wounds Onset (ago): unknown Location: buttocks, lower extremity and right Radiation: non-radiation Severity: mild Pain Consistency: + constant Maximum Pain Intensity: 5 Associated symptoms: + rash; no chest pain, no cough, no fever/chills, no headaches, no nausea/vomiting, no shortness of breath, no syncope and no weakness 80-year-old female presents emergency department at the request of the wound clinic for bedsores. Patient denies any fevers. Per the charge nurse who took call from the wound care clinic there is a severe wound over the left hip/buttocks area then needs surgical debridement and IV antibiotics. Home Medications Medication Instructions Recorded Confirmed Type Lift Chair #1 ea 03/09/19 09/06/20 Rx aspirin 81 mg tablet,delayed 81 mg PO QAM 05/02/19 09/06/20 History release atorvastatin 40 mg tablet 40 mg PO HS #90 tab 10/12/19 09/06/20 Rx lancets 30 gauge #100 ea 11/15/19 09/06/20 Rx insulin syringe-needle U-100 0.3 #100 ea 01/29/20 09/06/20 Rx mL 31 gauge x 5/16" flash glucose sensor #1 ea 03/14/20 09/06/20 Rx flash glucose scanning reader #1 ea 03/26/20 09/06/20 Rx nitroglycerin 0.4 mg sublingual 0.4 mg SUBLINGUAL Q5M PRN #25 tab 05/16/20 09/06/20 Rx tablet albuterol sulfate 2.5 mg INH QID PRN 06/23/20 09/06/20 History Lantus U-100 Insulin 20 unit SUBCUT QAM 07/30/20 09/06/20 History amiodarone 200 mg PO BID 07/30/20 09/06/20 History citalopram [Celexa] 40 mg PO HS 07/30/20 09/06/20 History furosemide 40 mg PO QAM 07/30/20 09/06/20 History pantoprazole [Protonix] 40 mg PO DAILYBB 07/30/20 09/06/20 History Lactobacillus acidophilus 10,000 mmu cells PO TID 09/06/20 09/06/20 History [Probiotic] acetaminophen 325 mg tablet 650 mg PO Q4H PRN tab 09/06/20 09/06/20 History alum-mag hydroxide-simeth [Maalox 30 ml PO Q6H PRN 09/06/20 09/06/20 History Advanced] ascorbic acid (vitamin C) 500 mg 500 mg PO QAM cap 09/06/20 09/06/20 History capsule collagenase clostridium histo. 1 applic TOPICAL DAILY PRN 09/06/20 09/06/20 History [Santyl] gabapentin 600 mg tablet 300 mg PO HS tab 09/06/20 09/06/20 History ipratropium bromide 2 sprays INTNAS TID PRN 09/06/20 09/06/20 History lorazepam 0.5 mg tablet 0.5 mg PO TID PRN 09/06/20 09/06/20 History metoprolol succinate 50 mg 50 mg PO BID tab 09/06/20 09/06/20 History tablet,extended release 24 hr ondansetron HCl 4 mg tablet 4 mg PO Q6H PRN 09/06/20 09/06/20 History potassium chloride [Klor-Con 10] 10 meq PO BID 09/06/20 09/06/20 History sennosides-docusate sodium 1 tab-cap PO QAM 09/06/20 09/06/20 History [Senokot-S] Allergies Allergy/AdvReac Type Severity Reaction Status Date / Time bee venom protein (honey bee) Allergy Severe SWELLING Verified 09/06/20 12:35 SOB iodine Allergy Severe RASH; Verified 09/06/20 12:35 SHORTNESS OF BREATH codeine Allergy Intermediate SWELLING Verified 09/06/20 12:35 metformin Allergy Intermediate Diarrhea Verified 09/06/20 12:35 Penicillins Allergy Intermediate RASH/HIVES Verified 09/06/20 12:35 chocolate flavor Allergy Mild Diarrhea Verified 09/06/20 12:35 procaine Allergy Mild NOVOCAINE-R Verified 09/06/20 12:35 AKILAH Cephalosporins Allergy Unknown UNKNOWN Verified 09/06/20 12:35 clarithromycin Allergy Unknown Unknown Verified 09/06/20 12:35 shellfish derived Allergy Unknown Unknown Verified 09/06/20 12:35 Past Med/Surg History Medical History Anxiety Asthma RARELY NEEDS PRN INH Atrial fibrillation Paroxysmal, not on anticoagulation. Per cardio 12/25/15, "since she has not had a paroxysmal for many years, no therapy will be initiated today. Given her elevated CHADSVASC score, though, would recommend anticoagulation therapy if she were to develop any recurrent episodes of A. fib in the future." Breath shortness Chronic back pain Chronic chest pain Has been evaluated by cardio, ruled to be non-cardiac in origin. 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 HgA1C 6.6% 05/03/18 Diverticular disease Hiatal hernia History of right breast cancer S/P RT MASTECTOMY, + CHEMO/RADIATION Hypercholesteremia Hyperlipidemia Lower back pain Microscopic hematuria Migraine Morbid obesity Myocardial Infarction > 20 YEARS AGO Nonobstructive atherosclerosis of coronary artery Per cath 2008 Nontraumatic hematoma Osteoarthritis Pulmonary hypertension Symptomatic anemia Surgical History Fusion of spine History of appendectomy History of back surgery [place] PRESENT History of bilateral tubal ligation History of breast biopsy History of cardiac cath 2008 [facility] for chest pain. Non-obstructive CAD. "Non-cardiac chest pain." History of carpal tunnel release BL History of cataract surgery History of cholecystectomy History of dilatation and curettage History of hysterectomy History of partial gastrectomy History of right mastectomy NO BP/IV RUE History of tonsillectomy History of tooth extraction History of total knee replacement BL History of total shoulder replacement RT Family History Sister Family history of diabetes mellitus Breast cancer Daughter Family history of reaction to anesthesia SLOW TO WAKE UP Grandfather (Maternal) Myocardial infarction Denies family history of Ovarian cancer Prostate cancer Colorectal cancer Social History Smoking Status: Never smoker Second Hand Exposure: No; Hx Alcohol Use: No Hx Substance Use: No Preferred Language: Bulgarian Communication Ability: Effective Visual Impairment: No Limitations Hearing Ability: Normal Box Lining Machine Feeder Required: No Beliefs That Will Affect Care: None marital status: Current Living Situation: Spouse and Rehab Current Living Situation Comment: Currently at [facility] current occupational status: retired 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 [employer] Feels Safe at Home: Yes Childhood Exposure to Second-Hand Smoke: No Dental Care, Regularly: No Physical Activity Frequency: Does not Exercise Seatbelt Use: always Sunscreen Use: No Assistive Devices: Denture - Upper and Denture - Lower Review of Systems A total of 10 systems reviewed and were otherwise negative Physical Exam Vital Signs Vital Signs - 24 hr 09/06/20 10:35 Temperature 37.5 C Temperature Source Oral Pulse Rate 106 H Respiratory Rate 18 Blood Pressure 119/80 Blood Pressure Mean 93 Pulse Oximetry 99 Oxygen Delivery Method Room Air Sepsis Recent Fever Within 48 Hours No Sepsis New/Unexplained Change in Mental Status N/A Sepsis Action Taken by Nursing No Action Required Physical Exam HENT: Exam performed. -Head: Normocephalic and atraumatic. -Right Ear: External ear normal. No mastoid tenderness. -Left Ear: External ear normal. No mastoid tenderness. -Mouth/Throat: The oropharynx is clear and moist. No trismus in the jaw. No dental abscesses or uvula swelling. No oropharyngeal exudate or tonsillar abscesses. EYES: Conjunctivae and EOM are normal. Pupils are equal, round, and reactive to light. Right eye exhibits no discharge. Left eye exhibits no discharge. No scleral icterus. CV: Normal rate, regular rhythm, normal heart sounds and intact distal pulses. There is no peripheral edema. Palpable radial pulses bue. PULM/CHEST: Effort normal and breath sounds normal. No respiratory distress. No stridor. She has no wheezes. She has no rales. ABD: The abdomen is soft and obese MUSC/SKEL: Normal range of motion. There is no peripheral edema, tenderness or deformity. NEURO: Motor and sensation grossly intact SKIN: Right breast 3 x 3.5 cm wound went no surrounding erythema Left ischial/buttock: 4 x 3 cm wound with serosanguineous purulent smelling discharge. Sacral decubitus ulcer stage II PSYCH: She has a normal mood and affect. Behavior is normal. Judgment and thought content normal. Course Course 1040: The patient was evaluated in room A2. A complete history and physical exam was performed Cardiac monitoring: An order was placed for continuous cardiac monitoring. The monitor shows a rate of 90 with sinus rhythm 1145: Vital signs stable. Labs within normal limits. Patient be admitted to [facility] for possible surgical debridement and IV antibiotics. Administered Medications Sodium Chloride (Nss 1000ml) 1,000 mls @ 125 mls/hr IV .Q8H ISAIAS Stop: 10/06/20 10:44 Last Admin: 09/06/20 12:02 Dose: 125 mls/hr Documented by: [id number] Medical Decision Making Laboratory Data Result diagrams: 09/06/20 11:10 09/06/20 11:10 Lab Results 09/06/20 09/06/20 09/06/20 Range/Units 11:10 11:10 11:10 WBC 10.57 (4.8-10.8) K/uL RBC 3.37 L (4.2-5.4) M/uL Hgb 9.7 L (12.0-16.0) g/dL Hct 32.3 L (37-47) % MCV 95.8 (80-100) fL MCH 28.8 (25-34) pg MCHC 30.0 L (32-36) g/dL RDW Std Deviation 55.5 H (36.4-46.3) fL RDW Coeff of Erin 15.8 H (11.5-14.5) % Plt Count 243 (130-400) K/uL MPV 9.4 (7.4-10.4) fL Immature Gran % (Auto) 0.4 % Neut % (Auto) 73.3 % Lymph % (Auto) 15.7 % Barber % (Auto) 9.1 % Eos % (Auto) 1.4 % Baso % (Auto) 0.1 % Neut # (Auto) 7.75 H (1.4-6.5) K/uL Lymph # (Auto) 1.66 (1.2-3.4) K/uL Barber # (Auto) 0.96 H (0.11-0.59) K/uL Eos # (Auto) 0.15 (0-0.5) K/uL Baso # (Auto) 0.01 (0-0.2) K/uL Immature Gran # (Auto) 0.04 H (0.00-0.02) K/uL PT 10.8 (9.0-12.0) Seconds INR 1.1 (0.9-1.1) APTT 25.4 (21.0-31.0) Seconds PTT Ratio 1.0 Sodium 140 (136-145) mmol/L Potassium 3.8 (3.5-5.1) mmol/L Chloride 105 (98-107) mmol/L Carbon Dioxide 32 (21-32) mmol/L Anion Gap 3.0 (3-11) BUN 38 H (7-18) mg/dl Creatinine 1.82 H (0.6-1.2) mg/dl Est Cr Clr Drug Dosing 29.3 ml/min Est GFR ( Amer) 29.7 ml/min Est GFR (Non-Af Amer) 25.6 ml/min BUN/Creatinine Ratio 20.9 H (10-20) Glucose 90 (70-99) mg/dl Lactate (0.4-2.0) mmol/L Calcium 7.8 L (8.5-10.1) mg/dl COVID-19 Eval Order SARS-CoV-2 (PCR) (Negative) 09/06/20 09/06/20 09/06/20 Range/Units 11:10 11:13 11:13 WBC (4.8-10.8) K/uL RBC (4.2-5.4) M/uL Hgb (12.0-16.0) g/dL Hct (37-47) % MCV (80-100) fL MCH (25-34) pg MCHC (32-36) g/dL RDW Std Deviation (36.4-46.3) fL RDW Coeff of Erin (11.5-14.5) % Plt Count (130-400) K/uL MPV (7.4-10.4) fL Immature Gran % (Auto) % Neut % (Auto) % Lymph % (Auto) % Barber % (Auto) % Eos % (Auto) % Baso % (Auto) % Neut # (Auto) (1.4-6.5) K/uL Lymph # (Auto) (1.2-3.4) K/uL Barber # (Auto) (0.11-0.59) K/uL Eos # (Auto) (0-0.5) K/uL Baso # (Auto) (0-0.2) K/uL Immature Gran # (Auto) (0.00-0.02) K/uL PT (9.0-12.0) Seconds INR (0.9-1.1) APTT (21.0-31.0) Seconds PTT Ratio Sodium (136-145) mmol/L Potassium (3.5-5.1) mmol/L Chloride (98-107) mmol/L Carbon Dioxide (21-32) mmol/L Anion Gap (3-11) BUN (7-18) mg/dl Creatinine (0.6-1.2) mg/dl Est Cr Clr Drug Dosing ml/min Est GFR ( Amer) ml/min Est GFR (Non-Af Amer) ml/min BUN/Creatinine Ratio (10-20) Glucose (70-99) mg/dl Lactate 1.4 (0.4-2.0) mmol/L Calcium (8.5-10.1) mg/dl COVID-19 Eval Order Covid19 at [facility] SARS-CoV-2 (PCR) NEGATIVE (Negative) MDM Narrative Vital signs stable. Labs within normal limits. [facility] and [facility] antibiotics. Impression & Plan Decubitus skin ulcer Discharge Plan Visit Data Chief Complaint: Infection, Wound Stated Complaint: OPEN WOUNDS ON R BREAST AND L BUTTOCKS ED Provider: Liam Velez Discharge Problem: Decubitus skin ulcer Patient Disposition: Being Evaluated by Hospitalist Forms Stand Alone Forms: My [facility] Prescriptions Prescriptions: No Action metoprolol succinate 50 mg tablet extended release 24 hr 50 mg PO BID RF: 0 ascorbic acid (vitamin C) 500 mg capsule 500 mg PO QAM RF: 0 ondansetron HCl [Zofran] 4 mg tablet 4 mg PO Q6H PRN (Reason: Nausea) RF: 0 acetaminophen 325 mg tablet 650 mg PO Q4H PRN (Reason: Pain/Temp) RF: 0 lorazepam [Ativan] 0.5 mg tablet 0.5 mg PO TID PRN (Reason: Anxiety) RF: 0 atorvastatin [Lipitor] 40 mg tablet 40 mg PO HS Qty: 90 RF: 3 (DME) lancets [OneTouch Delica Plus Lancet] 30 gauge misc See Rx Instructions .ROUTE .MEDSUPPLY Qty: 100 RF: 3 (DME) insulin syringe-needle U-100 [BD Insulin Syringe Ultra-Fine] 0.3 mL 31 gauge x 5/16" syringe See Rx Instructions .ROUTE .MEDSUPPLY Qty: 100 RF: 3 (DME) FreeStyle Vanessa 14 Day Sensor Kit See Rx Instructions .ROUTE .MEDSUPPLY Qty: 1 RF: 0 (DME) FreeStyle Vanessa 14 Day [place] Misc See Rx Instructions .ROUTE .MEDSUPPLY Qty: 1 RF: 0 nitroglycerin 0.4 mg tablet, sublingual 0.4 mg sublingual Q5M PRN (Reason: chest pain) Qty: 25 RF: 3 aspirin [Adult Aspirin Regimen] 81 mg tablet,delayed release (DR/EC) 81 mg PO QAM RF: 0 (DME) Lift Chair Misc See Rx Instructions .ROUTE .MEDSUPPLY Qty: 1 RF: 0 albuterol sulfate 2.5 mg /3 mL (0.083 %) solution for nebulization 2.5 mg INH QID PRN (Reason: SOB) RF: 0 amiodarone 200 mg Tablet 200 mg PO BID RF: 0 furosemide 40 mg tablet 40 mg PO QAM RF: 0 Lantus U-100 Insulin 100 unit/mL solution 20 unit subcut QAM RF: 0 citalopram [Celexa] 40 mg tablet 40 mg PO HS RF: 0 pantoprazole [Protonix] 40 mg tablet,delayed release (DR/EC) 40 mg PO DAILYBB RF: 0 gabapentin [Neurontin] 600 mg tablet 300 mg PO HS RF: 0 sennosides-docusate sodium [Senokot-S] 8.6-50 mg Tablet 1 tab-cap PO QAM RF: 0 alum-mag hydroxide-simeth [Maalox Advanced] 200-200-20 mg/5 mL Suspension 30 ml PO Q6H PRN (Reason: Heartburn) RF: 0 Santyl 250 unit/gram Ointment 1 applic TOPICAL DAILY PRN (Reason: pressure injuries) RF: 0 Probiotic 10 billion cell Capsule 10,000 mmu cells PO TID RF: 0 potassium chloride [Klor-Con 10] 10 mEq tablet extended release 10 meq PO BID RF: 0 ipratropium bromide 0.03 % spray,non-aerosol 2 sprays INTNAS TID PRN (Reason: sinus congestion) RF: 0 Referrals Referrals: Annabelle Bashir [Primary Care Provider] - Discharge Problem: Decubitus skin ulcer Qualifiers: Pressure injury location: hip Pressure injury stage: unstageable Laterality: left Qualified Code(s): L89.220 - Pressure ulcer of left hip, unstageable
--- NOTE | 2020-09-06 12:28 | History & Physical Report ---
Date of Service September 06, 2020 Assessment & Plan (1) Unstageable pressure ulcer of left buttock: Unstageable pressure ulcer left buttock/chest wall abscess- Placed on daptomycin IV and aztreonam IV Consult wound care Consult Dr. Kasia Oliveros Present on Admission?: Yes (2) Chest wall abscess: See above Present on Admission?: Yes (3) Atrial fibrillation: Atrial fibrillation/hypertension/CHF- Continue routine medications: Amiodarone, furosemide, metoprolol succinate, nitroglycerin sublingual and potassium chloride. Hold aspirin Present on Admission?: Yes (4) Hypertension: See above Present on Admission?: Yes (5) Hyperlipidemia: Continue atorvastatin Present on Admission?: Yes (6) Anxiety: Continue lorazepam as needed Present on Admission?: Yes (7) Asthma: Hold albuterol sulfate HFA as needed DuoNebs every 2 hours as needed Present on Admission?: Yes (8) Diabetes mellitus, type 2: Reduce Lantus from 25 to 10 units subcu twice daily Placed on Accu-Cheks before meals and at bedtime with NovoLog coverage per scale Check hemoglobin A1c Present on Admission?: Yes (9) CHF (congestive heart failure): See above Present on Admission?: Yes (10) CKD (chronic kidney disease): Creatinine 1.82 upon admission, with range 1.95-2.26 Continue to follow serially Present on Admission?: Yes History of Present Illness Chief Complaint: The patient was referred to the emergency department from [facility] due to concerns regarding worsening open wounds on right breast and left buttocks that they feel may need IV antibiotics and debridement Primary Care Provider: [facility] The patient is a 80-year-old female with a past medical history including right heart failure, CKD stage III, atrial fibrillation, MSSA bacteremia, hyperten judy, hyperlipidemia, anxiety, asthma, diabetes mellitus type 2, CHF, acute blood loss anemia, acute respiratory failure with hypoxia, hypertensive emergency, pneumonia, UTI, asthma and chronic chest pain. She is referred to the emergency department as noted above. Allergies Allergy/AdvReac Type Severity Reaction Status Date / Time bee venom protein (honey bee) Allergy Severe SWELLING Verified 09/06/20 12:35 SOB iodine Allergy Severe RASH; Verified 09/06/20 12:35 SHORTNESS OF BREATH codeine Allergy Intermediate SWELLING Verified 09/06/20 12:35 metformin Allergy Intermediate Diarrhea Verified 09/06/20 12:35 Penicillins Allergy Intermediate RASH/HIVES Verified 09/06/20 12:35 chocolate flavor Allergy Mild Diarrhea Verified 09/06/20 12:35 procaine Allergy Mild NOVOCAINE-R Verified 09/06/20 12:35 AKILAH Cephalosporins Allergy Unknown UNKNOWN Verified 09/06/20 12:35 clarithromycin Allergy Unknown Unknown Verified 09/06/20 12:35 shellfish derived Allergy Unknown Unknown Verified 09/06/20 12:35 Home Medications Medication Instructions Recorded Confirmed Type ipratropium bromide 21 mcg (0.03 2 sprays INTNAS TID PRN #30 ml 10/28/18 09/06/20 Rx %) nasal spray Lift Chair #1 ea 03/09/19 09/06/20 Rx aspirin 81 mg tablet,delayed 81 mg PO DAILY 05/02/19 09/06/20 History release potassium chloride 10 mEq 10 meq PO QAM #90 tab 08/31/19 09/06/20 Rx tablet,extended release atorvastatin 40 mg tablet 40 mg PO HS #90 tab 10/12/19 09/06/20 Rx lancets 30 gauge #100 ea 11/15/19 09/06/20 Rx docusate sodium 100 mg capsule 200 mg PO DAILY #60 cap 12/27/19 09/06/20 Rx insulin syringe-needle U-100 0.3 #100 ea 01/29/20 09/06/20 Rx mL 31 gauge x 5/16" flash glucose sensor #1 ea 03/14/20 09/06/20 Rx flash glucose scanning reader #1 ea 03/26/20 09/06/20 Rx nitroglycerin 0.4 mg sublingual 0.4 mg SUBLINGUAL Q5M PRN #25 tab 05/16/20 09/06/20 Rx tablet albuterol sulfate 2.5 mg INH QID PRN 06/23/20 09/06/20 History Lantus U-100 Insulin 25 unit SUBCUT BID 07/30/20 09/06/20 History amiodarone 200 mg PO BID 07/30/20 09/06/20 History citalopram [Celexa] 40 mg PO QPM 07/30/20 09/06/20 History furosemide 40 mg PO QAM 07/30/20 09/06/20 History pantoprazole [Protonix] 40 mg PO QAM 07/30/20 09/06/20 History B.anim-L.acid-L.saliv-L.plan-L.casei cap PO TID cap 09/06/20 09/06/20 History 10 billion cell(2 billion ea) cap acetaminophen 325 mg tablet 650 mg PO Q4H PRN tab 09/06/20 09/06/20 History ascorbic acid (vitamin C) 500 mg mg PO DAILY cap 09/06/20 09/06/20 History capsule gabapentin 600 mg tablet 300 mg PO HS tab 09/06/20 09/06/20 History lorazepam 0.5 mg tablet 0.5 mg PO TID PRN 09/06/20 09/06/20 History metoprolol succinate 50 mg 50 mg PO BID tab 09/06/20 09/06/20 History tablet,extended release 24 hr ondansetron HCl 4 mg tablet 4 mg PO Q6H PRN 09/06/20 09/06/20 History sennosides 8.6 mg tablet 8.6 mg PO DAILY 09/06/20 09/06/20 History Past Med/Surg History Medical History (Updated 09/06/20 @ 11:50 by STACEY Mcknight) Anxiety Asthma RARELY NEEDS PRN INH Atrial fibrillation Paroxysmal, not on anticoagulation. Per cardio 12/25/15, "since she has not had a paroxysmal for many years, no therapy will be initiated today. Given her elevated CHADSVASC score, though, would recommend anticoagulation therapy if she were to develop any recurrent episodes of A. fib in the future." Breath shortness Chronic back pain Chronic chest pain Has been evaluated by cardio, ruled to be non-cardiac in origin. 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 HgA1C 6.6% 05/03/18 Diverticular disease Hiatal hernia History of right breast cancer S/P RT MASTECTOMY, + CHEMO/RADIATION Hypercholesteremia Hyperlipidemia Lower back pain Microscopic hematuria Migraine Morbid obesity Myocardial Infarction > 20 YEARS AGO Nonobstructive atherosclerosis of coronary artery Per cath 2008 Nontraumatic hematoma Osteoarthritis Pulmonary hypertension Symptomatic anemia Surgical History Fusion of spine History of appendectomy History of back surgery HARDWARE PRESENT History of bilateral tubal ligation History of breast biopsy History of cardiac cath 2008 [facility] for chest pain. Non-obstructive CAD. "Non-cardiac chest pain." History of carpal tunnel release BL History of cataract surgery History of cholecystectomy History of dilatation and curettage History of hysterectomy History of partial gastrectomy History of right mastectomy NO BP/IV RUE History of tonsillectomy History of tooth extraction History of total knee replacement BL History of total shoulder replacement RT Family History Sister Family history of diabetes mellitus Breast cancer Daughter Family history of reaction to anesthesia SLOW TO WAKE UP Grandfather (Maternal) Myocardial infarction Denies family history of Ovarian cancer Prostate cancer Colorectal cancer Social History (Updated 09/06/20 @ 09:33 by Chelsi Palomares RN) Smoking Status: Never smoker Second Hand Exposure: No; Hx Alcohol Use: No Hx Substance Use: No Preferred Language: Yakut Communication Ability: Effective Visual Impairment: No Limitations Hearing Ability: Normal Valuation Consultant Required: No Beliefs That Will Affect Care: None marital status: Current Living Situation: Spouse and Rehab Current Living Situation Comment: Currently at [facility] 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[employer] 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 Safe at Home: Yes Childhood Exposure to Second-Hand Smoke: No Dental Care, Regularly: No Physical Activity Frequency: Does not Exercise Seatbelt Use: always Sunscreen Use: No Assistive Devices: Denture - Upper and Denture - Lower Review of Systems Review of Systems: The patient denies chest pain, palpitations, shortness of breath, dyspnea on exertion, cough, lower extremity swelling, sore throat, fevers, chills, sweats, nausea, vomiting, diarrhea , constipation, abdominal pain, pelvic pain, blood in urine or stool, dysuria, urinary frequency or urgency, lightheadedness, dizziness, headache, memory loss, loss of consciousness, focal weakness, numbness or tingling in arms or legs, generalized arthralgias or myalgias, back or neck pain, or night sweats. The review of systems is otherwise negative other than for that already noted above, and at least 10 systems have been reviewed. Physical Exam Physical Exam: The patient is awake, alert and oriented 3, well developed and well nourished, normocephalic and atraumatic, lying in bed and in no acute distress. HEENT--PERRL, EOMI, mucous membranes and oropharynx normal. Neck--supple. No JVD. No bruits. Thyroid normal, trachea midline, no adenopathy. Heart--normal S1 and S2. No murmurs, rubs or gallops. Lungs--clear bilaterally, no respiratory distress, no accessory muscle use. Abdomen--normal bowel sounds and soft. Nontender. Nondistended. Morbidly obese Extremities--no cyanosis or clubbing. No edema. Dermatologic--decubitus ulcers as noted in wound care notes on right chest wall and pressure ulcer of left buttock Neurologic--cranial nerves II through XII grossly intact. Rheumatologic--limited exam due to body habitus Psychiatric--normal affect. Results & Data Results & Data ([facility]) Vital Signs (Past 12 Hours) Vital Signs Temp Pulse Resp BP Pulse Ox 09/06/20 10:35 99.5 F 106 H 18 119/80 99 Laboratory Results Laboratory Results WBC 10.57 K/uL (4.8-10.8) 09/06/20 11:10 RBC 3.37 M/uL (4.2-5.4) L 09/06/20 11:10 Hgb 9.7 g/dL (12.0-16.0) L 09/06/20 11:10 Hct 32.3 % (37-47) L 09/06/20 11:10 MCV 95.8 fL (80-100) 09/06/20 11:10 MCH 28.8 pg (25-34) 09/06/20 11:10 MCHC 30.0 g/dL (32-36) L 09/06/20 11:10 RDW Std Deviation 55.5 fL (36.4-46.3) H 09/06/20 11:10 RDW Coeff of Erin 15.8 % (11.5-14.5) H 09/06/20 11:10 Plt Count 243 K/uL (130-400) 09/06/20 11:10 MPV 9.4 fL (7.4-10.4) 09/06/20 11:10 Immature Gran % (Auto) 0.4 % 09/06/20 11:10 Neut % (Auto) 73.3 % 09/06/20 11:10 Lymph % (Auto) 15.7 % 09/06/20 11:10 Calloway % (Auto) 9.1 % 09/06/20 11:10 Eos % (Auto) 1.4 % 09/06/20 11:10 Baso % (Auto) 0.1 % 09/06/20 11:10 Neut # (Auto) 7.75 K/uL (1.4-6.5) H 09/06/20 11:10 Lymph # (Auto) 1.66 K/uL (1.2-3.4) 09/06/20 11:10 Calloway # (Auto) 0.96 K/uL (0.11-0.59) H 09/06/20 11:10 Eos # (Auto) 0.15 K/uL (0-0.5) 09/06/20 11:10 Baso # (Auto) 0.01 K/uL (0-0.2) 09/06/20 11:10 Immature Gran # (Auto) 0.04 K/uL (0.00-0.02) H 09/06/20 11:10 PT 10.8 Seconds (9.0-12.0) 09/06/20 11:10 INR 1.1 (0.9-1.1) 09/06/20 11:10 APTT 25.4 Seconds (21.0-31.0) 09/06/20 11:10 PTT Ratio 1.0 09/06/20 11:10 Sodium 140 mmol/L (136-145) 09/06/20 11:10 Potassium 3.8 mmol/L (3.5-5.1) 09/06/20 11:10 Chloride 105 mmol/L (98-107) 09/06/20 11:10 Carbon Dioxide 32 mmol/L (21-32) 09/06/20 11:10 Anion Gap 3.0 (3-11) 09/06/20 11:10 BUN 38 mg/dl (7-18) H 09/06/20 11:10 Creatinine 1.82 mg/dl (0.6-1.2) H 09/06/20 11:10 Est Cr Clr Drug Dosing 29.3 ml/min 09/06/20 11:10 Est GFR ( Amer) 29.7 ml/min 09/06/20 11:10 Est GFR (Non-Af Amer) 25.6 ml/min 09/06/20 11:10 BUN/Creatinine Ratio 20.9 (10-20) H 09/06/20 11:10 Glucose 90 mg/dl (70-99) 09/06/20 11:10 Lactate 1.4 mmol/L (0.4-2.0) 09/06/20 11:10 Calcium 7.8 mg/dl (8.5-10.1) L 09/06/20 11:10 COVID-19 Eval Order Covid19 at [facility] 09/06/20 11:13 SARS-CoV-2 (PCR) NEGATIVE (Negative) 09/06/20 11:13 Code Status & VTE Plan Code Status Full code VTE Prophylaxis Plan VTE Prophylaxis will be ordered: Yes PG Care Time/CCT Total # of Minutes Spent Total Time Spent with Patient: Total time spent is greater than 50% in coordination of care (as documented) at patient's floor/unit and/or counseling patient: Coding Level of Care Code 32409 Initial Inpt Care Lvl 3 Diagnoses Unstageable pressure ulcer of left buttock L89.320 Chest wall abscess L02.213 Atrial fibrillation I48.91 Hypertension I10 Hyperlipidemia E78.5 Anxiety F41.9 Asthma J45.909 Diabetes mellitus, type 2 E11.9 CHF (congestive heart failure) I50.9 Heart failure chronicity: unspecified Heart failure type: unspecified CKD (chronic kidney disease) N18.9 Chronic kidney disease stage: unspecified stage (1) CHF (congestive heart failure) Heart failure chronicity: unspecified Heart failure type: unspecified Qualified Code(s): I50.9 - Heart failure, unspecified (2) CKD (chronic kidney disease) Chronic kidney disease stage: unspecified stage Qualified Code(s): N18.9 - Chronic kidney disease, unspecified
[2020-09-06] MEDS ORDERED: ONDANSETRON INJ 2 MG/ML 2 ML VIAL IV STA (14:07)
[2020-09-06] MEDS ORDERED: ONDANSETRON INJ 2 MG/ML 2 ML VIAL ONE (14:12)
[2020-09-06] MEDS ORDERED: GLUCOSE 10 TABS/TUBE PO PRN (15:01)
[2020-09-06] MEDS ORDERED: DEXTROSE 50% 50 ML SYRINGE IV PRN (15:01)
[2020-09-06] MEDS ORDERED: GLUCAGON FOR INJ 1 MG VIAL SQ PRN (15:01)
[2020-09-06] MEDS ORDERED: LORazepam 0.5 MG TAB PO PRN (15:01)
[2020-09-06] MEDS ORDERED: GLUCOSE 40% GEL 15 GM TUBE PO PRN (15:01)
[2020-09-06] MEDS ORDERED: NITROGLYCERIN SL 0.4 MG/TAB TAB SL PRN (15:01)
[2020-09-06] MEDS ORDERED: CARBOHYDRATES FOR HYPOGLYCEMIA PO PRN (15:01)
--- NOTE | 2020-09-06 15:11 | Surgery Consultation ---
Date of Consultation September 06, 2020 Assessment & Plan (1) Unstageable pressure ulcer of left buttock: This is an 80y F resident at [facility] with a PMH of afib not on anticoagulation, DM2, CKD, CHF, who presents to the [facility] ED referred by wound care for a L buttocks wound for evaluation of surgical debridement. Patient with WBC 10, lactate 1.4. She is afebrile. On examination wound of concern in L buttock area with moderate serosang/purulent drainage with some surrounding skin changes, she also has two other wounds that are more superficial. They are tender to palpation. Agree with admission for IV abx. Appreciate hospitalists admission. She will need to be medically optimized prior to taking her to the OR. CXR has been ordered for her cough. Pending medical clearance we will tentatively book her for the OR for debridement of sacral ulcer this upcoming Wednesday09/08/20, will make NPO at midnight the night before. Supervising Physician Co-Signing Physician Notes I personally saw and evaluated the patient with Elaine Duran PA-C and agree with the assessment and plan 80 yo female with a left ischial decubitus ulcer requiring debridement -Chronic left ischial ulcer with necrotic tissue present, no signs of soft tissue infection -She will require surgical debridement in the OR if medically stable -Continue Optifoam dressing for today -Consent obtained, risks discussed including bleeding, infection, non-healing wound, making wound larger History of Present Illness Attending Physician: Kofi Magallon MD History of Present Illness This is an 80y F resident at [facility] with a PMH of afib not on anticoagulation, DM2, CKD, CHF, who presents to the [facility] ED referred by wound care for a L buttocks wound. Patient states the wound started when she was admitted to [facility] back in June for bacteremia and a spinal abscess. She says it is tender and has been told it is getting bigger. Patient says she is able to ambulate with assistance and uses a walker. Today in wound care clinic her wound was evaluated and local debridement was performed, but thought patient would benefit from admission for surgical debridement and IV abx therapy. Today patient also endorses a persistent cough that has been present the past 3 weeks despite a course of abx. She says she was diagnosed with pneumonia, but the cough remains present. She denies any fevers/chills, chest pain, shortness of breath. She states she did actually vomit in the ER today, but thinks it was related to difficulty clearing her throat. Of note the patient also has a R breast wound that is chronic after R breast mastectomy and radiation therapy and is apparently stable. Allergies Allergy/AdvReac Type Severity Reaction Status Date / Time bee venom protein (honey bee) Allergy Severe SWELLING Verified 09/06/20 12:35 SOB iodine Allergy Severe RASH; Verified 09/06/20 12:35 SHORTNESS OF BREATH codeine Allergy Intermediate SWELLING Verified 09/06/20 12:35 metformin Allergy Intermediate Diarrhea Verified 09/06/20 12:35 Penicillins Allergy Intermediate RASH/HIVES Verified 09/06/20 12:35 chocolate flavor Allergy Mild Diarrhea Verified 09/06/20 12:35 procaine Allergy Mild NOVOCAINE-R Verified 09/06/20 12:35 AKIALH Cephalosporins Allergy Unknown UNKNOWN Verified 09/06/20 12:35 clarithromycin Allergy Unknown Unknown Verified 09/06/20 12:35 shellfish derived Allergy Unknown Unknown Verified 09/06/20 12:35 Home Medications Medication Instructions Recorded Confirmed Type Lift Chair #1 ea 03/09/19 09/06/20 Rx aspirin 81 mg tablet,delayed 81 mg PO QAM 05/02/19 09/06/20 History release atorvastatin 40 mg tablet 40 mg PO HS #90 tab 10/12/19 09/06/20 Rx lancets 30 gauge #100 ea 11/15/19 09/06/20 Rx insulin syringe-needle U-100 0.3 #100 ea 01/29/20 09/06/20 Rx mL 31 gauge x 5/16" flash glucose sensor #1 ea 03/14/20 09/06/20 Rx flash glucose scanning reader #1 ea 03/26/20 09/06/20 Rx nitroglycerin 0.4 mg sublingual 0.4 mg SUBLINGUAL Q5M PRN #25 tab 05/16/20 09/06/20 Rx tablet albuterol sulfate 2.5 mg INH QID PRN 06/23/20 09/06/20 History Lantus U-100 Insulin 20 unit SUBCUT QAM 07/30/20 09/06/20 History amiodarone 200 mg PO BID 07/30/20 09/06/20 History citalopram [Celexa] 40 mg PO HS 07/30/20 09/06/20 History furosemide 40 mg PO QAM 07/30/20 09/06/20 History pantoprazole [Protonix] 40 mg PO DAILYBB 07/30/20 09/06/20 History Lactobacillus acidophilus 10,000 mmu cells PO TID 09/06/20 09/06/20 History [Probiotic] acetaminophen 325 mg tablet 650 mg PO Q4H PRN tab 09/06/20 09/06/20 History alum-mag hydroxide-simeth [Maalox 30 ml PO Q6H PRN 09/06/20 09/06/20 History Advanced] ascorbic acid (vitamin C) 500 mg 500 mg PO QAM cap 09/06/20 09/06/20 History capsule collagenase clostridium histo. 1 applic TOPICAL DAILY PRN 09/06/20 09/06/20 History [Santyl] gabapentin 600 mg tablet 300 mg PO HS tab 09/06/20 09/06/20 History ipratropium bromide 2 sprays INTNAS TID PRN 09/06/20 09/06/20 History lorazepam 0.5 mg tablet 0.5 mg PO TID PRN 09/06/20 09/06/20 History metoprolol succinate 50 mg 50 mg PO BID tab 09/06/20 09/06/20 History tablet,extended release 24 hr ondansetron HCl 4 mg tablet 4 mg PO Q6H PRN 09/06/20 09/06/20 History potassium chloride [Klor-Con 10] 10 meq PO BID 09/06/20 09/06/20 History sennosides-docusate sodium 1 tab-cap PO QAM 09/06/20 09/06/20 History [Senokot-S] Patient History Medical History Anxiety Asthma RARELY NEEDS PRN INH Atrial fibrillation Paroxysmal, not on anticoagulation. Per cardio 12/25/15, "since she has not had a paroxysmal for many years, no therapy will be initiated today. Given her elevated CHADSVASC score, though, would recommend anticoagulation therapy if she were to develop any recurrent episodes of A. fib in the future." Breath shortness Chronic back pain Chronic chest pain Has been evaluated by cardio, ruled to be non-cardiac in origin. 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 HgA1C 6.6% 05/03/18 Diverticular disease Hiatal hernia History of right breast cancer S/P RT MASTECTOMY, + CHEMO/RADIATION Hypercholesteremia Hyperlipidemia Lower back pain Microscopic hematuria Migraine Morbid obesity Myocardial Infarction > 20 YEARS AGO Nonobstructive atherosclerosis of coronary artery Per cath 2008 Nontraumatic hematoma Osteoarthritis Pulmonary hypertension Symptomatic anemia Surgical History Fusion of spine History of appendectomy History of back surgery HARDWARE PRESENT History of bilateral tubal ligation History of breast biopsy History of cardiac cath 2008 [facility] for chest pain. Non-obstructive CAD. "Non-cardiac chest pain." History of carpal tunnel release BL History of cataract surgery History of cholecystectomy History of dilatation and curettage History of hysterectomy History of partial gastrectomy History of right mastectomy NO BP/IV RUE History of tonsillectomy History of tooth extraction History of total knee replacement BL History of total shoulder replacement RT Family History Sister Family history of diabetes mellitus Breast cancer Daughter Family history of reaction to anesthesia SLOW TO WAKE UP Grandfather (Maternal) Myocardial infarction Denies family history of Ovarian cancer Prostate cancer Colorectal cancer Social History Smoking Status: Never smoker Second Hand Exposure: No; Hx Alcohol Use: No Hx Substance Use: No Preferred Language: Maltese Communication Ability: Effective Visual Impairment: No Limitations Hearing Ability: Normal Sports Medicine Specialist Required: No Beliefs That Will Affect Care: None marital status: Current Living Situation: Personal Care Facility Current Living Situation Comment: [facility]. 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 Safe at Home: Yes Childhood Exposure to Second-Hand Smoke: No Dental Care, Regularly: No Physical Activity Frequency: Does not Exercise Seatbelt Use: always Sunscreen Use: No Assistive Devices: Denture - Upper and Denture - Lower Review of Systems Constitutional: + anorexia; no fever and no chills Respiratory: + cough; no dyspnea Cardiovascular: no chest pain Gastrointestinal: + vomiting; no abdominal pain Integumentary: + wounds on R breast and buttocks Physical Exam Physical Exam: awake/alert; coughing Respiratory: + cough (dry) Gastrointestinal (Abdomen): Percussion/Palpation: abdomen soft; abdomen nontender 3 wounds noted in buttock region, one superficial wound at area of coccyx and one in the inferior Left buttocks region One wound in L buttocks + tenderness noted, +moderate serosang/purulent drainage, + slough, surrounding skin changes Results & Data ([facility]) Vital Signs (Past 12 Hours) Vital Signs Temp Pulse Pulse Resp BP BP Pulse Ox 09/06/20 14:30 37.5 C 93 H 22 122/66 91 09/06/20 14:00 105 H 28 H 102/66 09/06/20 13:00 96 H 22 113/73 93 09/06/20 12:00 81 20 127/76 96 09/06/20 11:13 95 H 20 100/82 97 09/06/20 10:37 101 H 18 119/80 96 09/06/20 10:35 37.5 C 106 H 18 119/80 99 PG Care Time/CCT Total # of Minutes Spent Total Time Spent with Patient: Total time spent is greater than 50% in coordination of care (as documented) at patient's floor/unit and/or counseling patient: Coding Level of Care Code 12177 Initial Inpt Care Lvl 2 Diagnoses Unstageable pressure ulcer of left buttock L89.320
[2020-09-06] MEDS ORDERED: IPRATROPIUM BROMIDE NASAL SPRAY 0.06% 15ML PRN (15:20)
[2020-09-06] MEDS: ALBUT/IPRATROP 3MG/0.5MG NEB 3 ML VIAL NEB PRN ×2 (15:50→22:32)
[2020-09-06] MEDS: HEPARIN SOD 5,000 UNIT/0.5 ML VIAL SQ SCH ×2 (16:02→21:17)
[2020-09-06] MEDS: DAPTOmycin 300 MG in SYRINGE 0 ML IV SCH (16:06)
[2020-09-06] MEDS: AZTREONAM 1,000 MG in DEXTROSE 5% 100 ML IV SCH ×2 (16:06→23:37)
[2020-09-06] MEDS: ACETAMINOPHEN 325 MG TAB PO PRN ×2 (17:15→21:16)
--- NOTE | 2020-09-06 17:50 | XRay Report ---
XR chest 1V portable HISTORY: 80 years-old Female persistent cough, recent pneumonia chronic cough with history of recent pneumonia COMPARISON: Chest radiograph 07/31/2020 TECHNIQUE: Portable AP view of the chest FINDINGS: Cardiac silhouette is enlarged. Chronic interstitial coarsening. Mild eventration of the right hemidi aphragm. Pulmonary vascular congestion. There is improved aeration of the lungs. No airspace consolid ation or pneumonia. Blunting of the costophrenic angles. Degenerative changes of the shoulders and sp ine. IMPRESSION: 1. Cardiomegaly without overt pulmonary edema. 2. Improved aeration of the lung bases. 3. Blunting of the costophrenic angles suggestive of atelectasis versus trace pleural effusions. ACT 112: Negative or not required by law. The above report was generated using voice recognition software. It may contain grammatical, syntax o r spelling errors. Electronically signed by: Uzair Martin M.D. 09/06/2020 5:49 PM
[2020-09-06] MEDS: INSULIN ASPART 100 UNITS/ML 3 ML PEN SC SCH ×2 (18:30→20:51)
[2020-09-06] MEDS: AMIODARONE 200 MG TAB PO SCH (20:50)
[2020-09-06] MEDS: METOPROLOL SUCC 50MG EXT REL TAB PO SCH (20:50)
[2020-09-06] MEDS: CITALOPRAM 40 MG TAB PO SCH (20:50)
[2020-09-06] MEDS: ATORVASTATIN 40 MG TAB PO SCH (20:50)
[2020-09-06] MEDS: GABAPENTIN 300 MG CAP PO SCH (20:50)
[2020-09-06] MEDS: INSULIN GLARGINE SOLOSTAR 100 UNITS/ML 3 ML PEN SQ SCH (20:51)
[2020-09-06] MEDS ORDERED: BENZONATATE 100 MG CAPSULE PO ONE (23:29)
[2020-09-07] MEDS: HEPARIN SOD 5,000 UNIT/0.5 ML VIAL SQ SCH ×3 (06:01→22:35)
[2020-09-07 07:08] LABS: Estimated Average Glucose 108 mg/dl; Hemoglobin A1C 5.4 % (4.5-5.6)
[2020-09-07] MEDS ORDERED: ONDANSETRON INJ 2 MG/ML 2 ML VIAL IV STA (08:17)
[2020-09-07] MEDS ORDERED: FUROSEMIDE 40 MG TAB PO SCH (09:00)
[2020-09-07] MEDS: AZTREONAM 1,000 MG in DEXTROSE 5% 100 ML IV SCH ×2 (09:15→15:57)
[2020-09-07] MEDS: AMIODARONE 200 MG TAB PO SCH ×2 (09:19→22:36)
[2020-09-07] MEDS: DOCUSATE SODIUM 100 MG CAP PO SCH (09:20)
[2020-09-07] MEDS: SENNA 8.6 MG TAB PO SCH (09:20)
[2020-09-07] MEDS: PANTOprazole 40 MG TAB PO SCH (09:20)
[2020-09-07] MEDS: INSULIN GLARGINE SOLOSTAR 100 UNITS/ML 3 ML PEN SQ SCH ×2 (09:21→22:37)
[2020-09-07] MEDS: INSULIN ASPART 100 UNITS/ML 3 ML PEN SC SCH ×4 (09:22→22:34)
[2020-09-07] MEDS: METOPROLOL SUCC 50MG EXT REL TAB PO SCH ×2 (09:24→22:37)
--- NOTE | 2020-09-07 10:10 | Surgery Progress Note ---
Date of Service September 07, 2020 Assessment & Plan (1) Unstageable pressure ulcer of left buttock: -Plan for debridement in OR tomorrow -NPO after MN -Antibiotics per primary team -Consult wound care nursing Wednesday Admission and Anticipated Discharge Date Admission Date: September 06, 2020 Subjective Pt seen and examined. No acute events overnight. Afebrile. Physical Exam Physical Exam: awake/alert; coughing Respiratory: + cough (dry) Gastrointestinal (Abdomen): Percussion/Palpation: abdomen soft; abdomen nontender 3 wounds noted in buttock region, one superficial wound at area of coccyx and one in the inferior Left buttocks region One wound in L buttocks + tenderness noted, +moderate serosang/purulent drainage, + slough, surrounding skin changes Results & Data ([facility]) Vital Signs (Past 12 Hours) Vital Signs Temp Pulse Pulse Resp BP Pulse Ox 09/07/20 09:20 92 H 119/73 09/07/20 07:25 36.9 C 97 H 23 106/68 99 09/06/20 23:07 37.1 C 108 H 20 112/61 93 09/06/20 22:36 103 H 22 95 PG Care Time/CCT Total # of Minutes Spent Total Time Spent with Patient: Total time spent is greater than 50% in coordination of care (as documented) at patient's floor/unit and/or counseling patient: Coding Level of Care Code 90651 Subseq Hosp Care Lvl 1 Diagnoses Unstageable pressure ulcer of left buttock L89.320
[2020-09-07] MEDS: ACETAMINOPHEN 325 MG TAB PO PRN ×2 (11:43→22:43)
--- NOTE | 2020-09-07 16:25 | Hospitalist Progress Note ---
Date of Service September 07, 2020 Assessment & Plan (1) Unstageable pressure ulcer of left buttock: * Agree with antibiotic regimen on board (daptomycin/Azactam). Patient is a diabetic and at risk for Pseudomonas. Azactam provide antipseudomonal coverage in the setting of her penicillin allergy. Daptomycin would provide adequate MRSA coverage (including hospital-acquired). * General surgery consulted for I&Dappreciate recommendations * her cardiac risk assessment is 1.1% but needs I&D of wound to prevent transplantation of infection and help with healing * I personally obtained a wound culture to send for C&S. would appreciate if GS would also repeat culture in OR tomorrow (but wanted one today since pt on empiric abx therapy) (2) Chest wall abscess: See above (3) Atrial fibrillation: Atrial fibrillation/hypertension/CHF- Continue routine medications: Amiodarone, furosemide, metoprolol succinate, nitroglycerin sublingual and potassium chloride. Hold aspirin for planned I&D (4) Hypertension: See above (5) Hyperlipidemia: Continue atorvastatin (6) Anxiety: Continue lorazepam as needed (7) Asthma: Hold albuterol sulfate HFA as needed DuoNebs every 2 hours as needed (8) Diabetes mellitus, type 2: Reduce Lantus from 25 to 10 units subcu twice daily Placed on Accu-Cheks before meals and at bedtime with NovoLog coverage per scale Check hemoglobin A1c (9) CHF (congestive heart failure): See above * currently euvolemic (10) CKD (chronic kidney disease): Creatinine 1.82 upon admission, with range 1.95-2.26 Continue to follow serially nothing further to add at this time plan of care to be D/W Dr. Siddiqi. Further orders as warrented Admission and Anticipated Discharge Date Admission Date: September 06, 2020 Subjective Patient seen on daily rounds today. She is an 80-year-old morbidly obese white female with a past medical history of paroxysmal atrial fibrillation, s pontaneous hemorrhage with anticoagulation therapy, CHF, CKD, atrial fibrillation, MSSA bacteremia, HTN, HLD, anxiety, asthma, diabetes mellitus, and anemia. She has been residing in a nursing facility following her barnes with Covid several months ago. She has since developed a pressure ulcer on her left buttocks that she has been following the wound clinic for. Due to a change in the wound with development of marked purulent drainage, patient was sent to the emergency department for admission. White blood cell count was within normal limits. Her lactic acid level was normal. She is currently on daptomycin and Azactam. She is diabetic and has a penicillin allergy. Plan is for OR tomorrow CXR done in the ED showed no acute cardiopulmonary process Patient apparently admitted to our facility May 2020 for Covid. She completed a 10-day course of steroids but no remdesivir as she was not requiring supplemental oxygen. She developed rapid A. fib requiring cardioversion and st arted on anticoagulation therapy. This was complicated by a large spontaneous left gluteal hematoma which required 2 units of blood. She then developed a Kd due to ATN from sepsis and hemorrhagic shock. 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 Echocardiogram at that time revealed no valvular vegetation. She was transferred to [facility] on 07/06 where she was admitted to the ICU. Interventional radiology was consulted and on 07/06 she underwent a posterior lumbar parasacral seroma/collection aspiration. ID was consulted and recommended IV Ancef X 6 weeks. She was discharged to [facility] on 07/13 to complete antibiotic therapy on 08/16. She was brought back to [facility] ED on 07/30 with several day history of increasing dyspnea, weakness, lower extremity edema. She was found to be in CHF at that time. Echocardiogram done showed EF of 55 to 60% with mild to moderate MR and mild TR. Patient was anemic at that time and required 2 units packed RBCs. She was given IV Venofer along with Epogen, stabilized and [facility]. 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 Echocardiogram done 07/10 showing no obvious left-sided valvular vegetation. EF of 55 to 59%. Review of Systems Review of Systems: Denies fevers, chills, headache, nasal congestion, sore throat, cough, chest pain, shortness of breath, abdominal pain, nausea, vomiting, GI/ symptomatology. Physical Exam Physical Exam: General: Resting comfortably in her hospital bed. A&O X3 NAD. Noted to be on supplemental oxygen (she claims that this has been ongoing since her barnes with Covid in May) Cardiac: Irregularly irregular with controlled ventricular rate Lungs: Speaking full sentences on supplemental oxygen. Breath sounds distant without wheezes, rales or rhonchi Abdomen: Normoactive X4. Soft and nontender in all quadrants. Extremities: + Adiposity without true pitting edema Skin: Patient has an open wound on her left chest wall close to the axillary line. It is approximately 4 cm x 2 cm; however, it is fairly deep with significant undermining. There is no active drainage from this wound. On the buttocks, there is a wound that is difficult to examine given her limited ability to roll to her side. It is approximately 3 cm x 3 cm x 3 cm with significant mucopurulent drainage Results & Data Results & Data ([facility]) Vital Signs (Past 12 Hours) Vital Signs Temp Pulse Pulse Resp BP BP Pulse Ox 09/07/20 14:47 36.6 C 86 18 103/68 97 09/07/20 11:35 36.6 C 96 H 16 105/66 97 09/07/20 09:20 92 H 119/73 09/07/20 07:25 36.9 C 97 H 23 106/68 99 Laboratory Results 09/06/20 11:10 09/06/20 11:10 PG Care Time/CCT Total # of Minutes Spent Total Time Spent with Patient: Total time spent is greater than 50% in coordination of care (as documented) at patient's floor/unit and/or counseling patient: [place] [address] Subseq Hosp Care Lvl 2 Patient Type Established History Expanded Problem Focused Exam Expanded Problem Focused Medical Decision Making Moderate Complexity Diagnoses Unstageable pressure ulcer of left buttock L89.320 Chest wall abscess L02.213 Atrial fibrillation I48.91 Hypertension I10 Hyperlipidemia E78.5 Anxiety F41.9 Asthma J45.909 Diabetes mellitus, type 2 E11.9 CHF (congestive heart failure) I50.9 Heart failure chronicity: unspecified Heart failure type: unspecified CKD (chronic kidney disease) N18.9 Chronic kidney disease stage: unspecified stage (1) CHF (congestive heart failure) Heart failure chronicity: unspecified Heart failure type: unspecified Qualified Code(s): I50.9 - Heart failure, unspecified (2) CKD (chronic kidney disease) Chronic kidney disease stage: unspecified stage Qualified Code(s): N18.9 - Chronic kidney disease, unspecified
[2020-09-07] MEDS: BENZONATATE 100 MG CAPSULE PO PRN (18:07)
[2020-09-07] MEDS: CITALOPRAM 40 MG TAB PO SCH (22:36)
[2020-09-07] MEDS: ATORVASTATIN 40 MG TAB PO SCH (22:36)
[2020-09-07] MEDS: GABAPENTIN 300 MG CAP PO SCH (22:36)
[2020-09-08] MEDS: BENZONATATE 100 MG CAPSULE PO PRN (00:23)
[2020-09-08] MEDS: AZTREONAM 1,000 MG in DEXTROSE 5% 100 ML IV SCH ×2 (00:23→08:36)
[2020-09-08] MEDS ORDERED: Nursing to Pharmacy Communication SCH (00:45)
[2020-09-08 05:47] LABS: Basophils # (auto) 0.01 K/uL (0-0.2); Basophils % (auto) 0.1 %; Eosinophils % (auto) 5.5 %; Hematocrit (blood only) 29.3 % (37-47); Immature Granulocytes # (auto) 0.02 K/uL (0.00-0.02); Immature Granulocytes % (auto) 0.2 %; Lymphocytes # (auto) 1.69 K/uL (1.2-3.4); Lymphocytes % (auto) 18.8 %; Mean Corpuscular Hemoglobin 28.8 pg (25-34); Mean Corpuscular Hgb Conc 30.7 g/dL (32-36); Mean Corpuscular Volume 93.6 fL (80-100); Mean Platelet Volume 9.3 fL (7.4-10.4); Monocytes # (auto) 0.93 K/uL (0.11-0.59); Monocytes % (auto) 10.3 %; Neutrophils # (auto) 5.86 K/uL (1.4-6.5); Neutrophils % (auto) 65.1 %; Platelet Count 229 K/uL (130-400); RDW Coefficient of Variation 15.8 % (11.5-14.5); RDW Standard Deviation 54.4 fL (36.4-46.3); Red Blood Count 3.13 M/uL (4.2-5.4); White Blood Count 9.01 K/uL (4.8-10.8)
[2020-09-08] MEDS: HEPARIN SOD 5,000 UNIT/0.5 ML VIAL SQ SCH ×3 (05:49→20:56)
[2020-09-08] MEDS ORDERED: INSULIN ASPART 100 UNITS/ML 3 ML PEN SC SCH (06:00)
[2020-09-08 06:14] LABS: BUN Creatinine Ratio 27.5 (10-20); Calcium 7.7 mg/dl (8.5-10.1); Creatinine Clr Calc Pharmacy 32.2 ml/min; Est GFR (African American) 32.4 ml/min; Magnesium 1.9 mg/dl (1.8-2.4); Potassium 3.6 mmol/L (3.5-5.1)
[2020-09-08 06:17] LABS: Albumin Globulin Ratio 0.5 (0.9-2); Bilirubin,Total 0.4 mg/dl (0.2-1)
--- NOTE | 2020-09-08 06:52 | Anesthesiology Consultation ---
Date of Service September 08, 2020 Assessment & Plan (1) Encounter for pre-operative examination: Chart Review Chart Review: clinical program consultant initiated History Surgery Operation Date: 09/08/20 07:30 Proposed Procedures p Debridement of Sacral Decubitus - Deepak Bonilla DO Height/Weight Height: 5 ft 3 in Weight: 116.8 kg Allergies Allergy/AdvReac Type Severity Reaction Status Date / Time bee venom protein (honey bee) Allergy Severe SWELLING Verified 09/06/20 12:35 SOB iodine Allergy Severe RASH; Verified 09/06/20 12:35 SHORTNESS OF BREATH codeine Allergy Intermediate SWELLING Verified 09/06/20 12:35 metformin Allergy Intermediate Diarrhea Verified 09/06/20 12:35 Penicillins Allergy Intermediate RASH/HIVES Verified 09/06/20 12:35 chocolate flavor Allergy Mild Diarrhea Verified 09/06/20 12:35 procaine Allergy Mild NOVOCAINE-R Verified 09/06/20 12:35 AKILAH Cephalosporins Allergy Unknown UNKNOWN Verified 09/06/20 12:35 clarithromycin Allergy Unknown Unknown Verified 09/06/20 12:35 shellfish derived Allergy Unknown Unknown Verified 09/06/20 12:35 Medications Home Medications Medication Instructions Recorded Confirmed Last Taken Lift Chair #1 ea 03/09/19 09/06/20 Unknown aspirin 81 mg tablet,delayed 81 mg PO QAM 05/02/19 09/06/20 07/30/20 release atorvastatin 40 mg tablet 40 mg PO HS #90 tab 10/12/19 09/06/20 07/29/20 lancets 30 gauge #100 ea 11/15/19 09/06/20 Unknown insulin syringe-needle U-100 0.3 #100 ea 01/29/20 09/06/20 Unknown mL 31 gauge x 5/16" flash glucose sensor #1 ea 03/14/20 09/06/20 Unknown flash glucose scanning reader #1 ea 03/26/20 09/06/20 Unknown nitroglycerin 0.4 mg sublingual 0.4 mg SUBLINGUAL Q5M PRN #25 tab 05/16/20 09/06/20 06/23/20 tablet 1 tab albuterol sulfate 2.5 mg INH QID PRN 06/23/20 09/06/20 06/23/20 Lantus U-100 Insulin 20 unit SUBCUT QAM 07/30/20 09/06/20 07/30/20 08:30 amiodarone 200 mg PO BID 07/30/20 09/06/20 07/30/20 citalopram [Celexa] 40 mg PO HS 07/30/20 09/06/20 07/30/20 furosemide 40 mg PO QAM 07/30/20 09/06/20 07/30/20 pantoprazole [Protonix] 40 mg PO DAILYBB 07/30/20 09/06/20 07/30/20 Lactobacillus acidophilus 10,000 mmu cells PO TID 09/06/20 09/06/20 Unknown [Probiotic] acetaminophen 325 mg tablet 650 mg PO Q4H PRN tab 09/06/20 09/06/20 Unknown alum-mag hydroxide-simeth [Maalox 30 ml PO Q6H PRN 09/06/20 09/06/20 Unknown Advanced] ascorbic acid (vitamin C) 500 mg 500 mg PO QAM cap 09/06/20 09/06/20 Unknown capsule collagenase clostridium histo. 1 applic TOPICAL DAILY PRN 09/06/20 09/06/20 Unknown [Santyl] gabapentin 600 mg tablet 300 mg PO HS tab 09/06/20 09/06/20 Unknown ipratropium bromide 2 sprays INTNAS TID PRN 09/06/20 09/06/20 Unknown lorazepam 0.5 mg tablet 0.5 mg PO TID PRN 09/06/20 09/06/20 Unknown metoprolol succinate 50 mg 50 mg PO BID tab 09/06/20 09/06/20 Unknown tablet,extended release 24 hr ondansetron HCl 4 mg tablet 4 mg PO Q6H PRN 09/06/20 09/06/20 Unknown potassium chloride [Klor-Con 10] 10 meq PO BID 09/06/20 09/06/20 Unknown sennosides-docusate sodium 1 tab-cap PO QAM 09/06/20 09/06/20 Unknown [Senokot-S] Active Medications Generic Name Dose Route Start Last Admin Trade Name Freq PRN Reason Stop Dose Admin Acetaminophen 650 mg 09/06/20 15:01 09/07/20 22:43 Acetaminophen 325 Mg Tab PO 10/06/20 15:00 650 mg Q4H PRN Administration pain/fever Albuterol 3 ml 09/06/20 12:47 09/06/20 22:32 Albut/Ipratrop 3mg/0.5mg Neb 3 Ml Vial NEB 10/06/20 12:46 3 ml Q2H PRN Administration dyspnea Amiodarone HCl 200 mg 09/06/20 21:00 09/07/20 22:36 Amiodarone 200 Mg Tab PO 10/06/20 20:59 200 mg BID ISAIAS Administration Atorvastatin Calcium 40 mg 09/06/20 21:00 09/07/20 22:36 Atorvastatin 40 Mg Tab PO 10/06/20 20:59 40 mg HS ISAIAS Administration Benzonatate 100 mg 09/07/20 17:54 09/08/20 00:23 Benzonatate 100 Mg Capsule PO 10/07/20 20:59 100 mg TID PRN Administration cough Citalopram Hydrobromide 40 mg 09/06/20 21:00 09/07/20 22:36 Citalopram 40 Mg Tab PO 10/06/20 20:59 40 mg QPM ISAIAS Administration Docusate Sodium 200 mg 09/07/20 09:00 09/07/20 09:20 Docusate Sodium 100 Mg Cap PO 10/07/20 08:59 Not Given DAILY ISAIAS Furosemide 40 mg 09/07/20 09:00 09/07/20 09:20 Furosemide 40 Mg Tab PO 10/07/20 08:59 40 mg QAM ISAIAS Administration Gabapentin 300 mg 09/06/20 21:00 09/07/20 22:36 Gabapentin 300 Mg Cap PO 10/06/20 20:59 300 mg HS ISAIAS Administration Heparin Sodium (Porcine) 7,500 units 09/06/20 15:30 09/08/20 05:49 Heparin Sod 5,000 Unit/0.5 Ml Vial SQ 10/06/20 15:29 Not Given Q8 ISAIAS Daptomycin 300 mg/ Syringe 6 mls @ 3 mls/min 09/06/20 16:00 09/06/20 16:06 IV 09/13/20 15:59 3 mls/min Q48H ISAIAS Administration Protocol Aztreonam 1,000 mg/ Dextrose 110 mls @ 100 mls/hr 09/06/20 16:00 09/08/20 01:35 IV 09/13/20 15:59 Infused Q8H ISAIAS Infusion Protocol Insulin Aspart 0 units 09/08/20 06:00 09/08/20 05:49 Insulin Aspart 100 Units/Ml 3 Ml Pen SC 10/08/20 05:59 Not Given Q6 ISAIAS Insulin Glargine 10 units 09/06/20 21:00 09/07/20 22:37 Insulin Glargine Solostar 100 Units/Ml 3 Ml Pen SQ 10/06/20 20:59 10 units BID ISAIAS Administration Metoprolol Succinate 50 mg 09/06/20 21:00 09/07/20 22:37 Metoprolol Succ 50mg Ext Rel Tab PO 10/06/20 20:59 50 mg BID ISAIAS Administration Pantoprazole Sodium 40 mg 09/07/20 09:00 09/07/20 09:20 Pantoprazole 40 Mg Tab PO 10/07/20 08:59 40 mg QAM ISAIAS Administration Sennosides 8.6 mg 09/07/20 09:00 09/07/20 09:20 Senna 8.6 Mg Tab PO 10/07/20 08:59 Not Given DAILY ISAIAS Past Medical History Medical History Anxiety Asthma RARELY NEEDS PRN INH Atrial fibrillation Paroxysmal, not on anticoagulation. Per cardio 12/25/15, "since she has not had a paroxysmal for many years, no therapy will be initiated today. Given her elevated CHADSVASC score, though, would recommend anticoagulation therapy if she were to develop any recurrent episodes of A. fib in the future." Breath shortness Chronic back pain Chronic chest pain Has been evaluated by cardio, ruled to be non-cardiac in origin. 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 HgA1C 6.6% 05/03/18 Diverticular disease Hiatal hernia History of right breast cancer S/P RT MASTECTOMY, + CHEMO/RADIATION Hypercholesteremia Hyperlipidemia Lower back pain Microscopic hematuria Migraine Morbid obesity Myocardial Infarction > 20 YEARS AGO Nonobstructive atherosclerosis of coronary artery Per cath 2008 Nontraumatic hematoma Osteoarthritis Pulmonary hypertension Symptomatic anemia Past Family History Family History Sister Family history of diabetes mellitus Breast cancer Daughter Family history of reaction to anesthesia SLOW TO WAKE UP Grandfather (Maternal) Myocardial infarction Denies family history of Ovarian cancer Prostate cancer Colorectal cancer Past Surgical History Surgical History Fusion of spine History of appendectomy History of back surgery [place]ARD[place] PRESENT History of bilateral tubal ligation History of breast biopsy History of cardiac cath 2008 [facility] for chest pain. Non-obstructive CAD. "Non-cardiac chest pain." History of carpal tunnel release BL History of cataract surgery History of cholecystectomy History of dilatation and curettage History of hysterectomy History of partial gastrectomy History of right mastectomy NO BP/IV RUE History of tonsillectomy History of tooth extraction History of total knee replacement BL History of total shoulder replacement RT Social History Smoking Status: Never smoker Hx Alcohol Use: No Hx Substance Use: No substance use type: does not use Physical Exam Vital Signs Last Vital Signs Temp 98.2 F 09/07/20 22:28 Pulse 106 H 09/07/20 22:28 Resp 16 09/07/20 22:28 BP 105/59 L 09/07/20 22:28 Pulse Ox 98 09/07/20 22:28 Testing Laboratory Results 09/08/20 05:11 09/08/20 05:11 PT 10.8 Seconds (9.0-12.0) 09/06/20 11:10 INR 1.1 (0.9-1.1) 09/06/20 11:10 APTT 25.4 Seconds (21.0-31.0) 09/06/20 11:10 Hemoglobin A1c 5.4 % (4.5-5.6) 09/07/20 05:49 09/06/20 11:05 Aerobic Blood Culture - Preliminary Blood No growth in Aerobic bottle after 24 hours. Anaerobic Blood Culture - Final 09/07/20 10:20 Gram Stain - Final Buttock,Left 09/06/20 11:10 Aerobic Blood Culture - Preliminary Blood No growth in Aerobic bottle after 24 hours. Anaerobic Blood Culture - Preliminary No growth in Anaerobic bottle after 24 hours. 09/08/20 09/07/20 05:49 20:43 POC Glucose 90 140 H Laboratory Tests 09/06/20 11:13 SARS-CoV-2 (PCR) NEGATIVE Electrocardiogram Date: 07/30/20 Normal sinus rhythm, rate 80 bpm Normal ECG When compared with ECG of 03-JUL-2020 05:16, Sinus rhythm has replaced Atrial fibrillation Incomplete left bundle block is no longer Present Nonspecific T wave abnormality no longer evident in Lateral leads Confirmed by Shane Stock ([id number]) on 07/31/2020 8:19:38 AM Chest X-Ray Date: 09/06/20 IMPRESSION: 1. Cardiomegaly without overt pulmonary edema. 2. Improved aeration of the lung bases. 3. Blunting of the costophrenic angles suggestive of atelectasis versus trace pleural effusions. Echocardiogram Date: 08/03/20 Compared with 07/03/20 study, systolic function mildly improved, MR mildly increased and mild pulmonary hypertension now seen The LV is normal in size LV systolic function is normal EF = 55-60% The LV wall motion is normal There is mild to mod MR The LA size is normal There is mild TR RV systolic pressure is elevated at 30-40mmHg The inferior vena cava is mildly dilated
[2020-09-08] MEDS: ALBUT/IPRATROP 3MG/0.5MG NEB 3 ML VIAL NEB PRN (07:32)
--- NOTE | 2020-09-08 07:33 | History & Physical Bridge Note ---
Date of Service September 08, 2020 History & Physical Bridge Note I have examined the patient, reviewed the History & Physical and in the interval since the performance of the History & Physical I have noted the following changes of clinical significance: no changes noted
[2020-09-08] MEDS ORDERED: FORMOTEROL 20 MCG/2 ML VIAL NEB STA (07:35)
[2020-09-08] MEDS ORDERED: BUDESONIDE 0.5 MG/2 ML VIAL (PULMICORT) NEB STA (07:35)
[2020-09-08] MEDS ORDERED: fentaNYL citrate 100 MCG/2 ML VIAL ONE (07:53)
[2020-09-08] MEDS ORDERED: PROPOFOL IV EMULSION 10 MG/ML 20 ML VIAL IV ONE (07:53)
[2020-09-08] MEDS ORDERED: LIDOCAINE 2% 2 ML VIAL/AMP(20MG/ML) INFIL ONE (07:53)
[2020-09-08] MEDS ORDERED: MIDAZOLAM HCL 1 MG/ML 2ML VIAL ONE (07:53)
--- NOTE | 2020-09-08 08:24 | Hospitalist Progress Note ---
Date of Service September 08, 2020 Assessment & Plan (1) Flash pulmonary edema: * with Dyspnea,cough, and objective crackles. CXR read by me with increased PVC * HOLD OFF ON PLAN FOR OR for now * ordered stat labs (including ABG, BNP, CK, MB, trop, repeat covid) along with CXR and EKG * hold oral lasix and give IV STAT * start bipap for now * will reassess * I did attempted to reach out to Dr. Bonilla to inform him that plan for OR should be held. Was notified that he was in on a case. Nursing staff was able to inform the OR staff. (2) Decubitus skin ulcer: * Was to have I&D today (in the OR); however, not medically stable * Continue with empiric antibiotic therapy (Azactam and daptomycin) * Wound culture obtained and pending (3) Atrial fibrillation: * Currently in A. fib with variable rate. Did just have a nebulized treatment and heart rate was 110 following. Will change DuoNeb to Xopenex/Atrovent to help minimize tachycardia * May need to adjust routine meds (? Increase metoprolol succinate to 3 times daily) (4) Diabetes mellitus, type 2: * Patient made n.p.o. for BiPAP * Her a.m. dose of Lantus was held * change novolog to regular while NPO Admission and Anticipated Discharge Date Admission Date: September 06, 2020 Subjective I was notified by nurse that patient was c/o increased SOB and a cough that started upon wakening this am. Per nurse, pulse ox was 98% on 1.5L and she was HD stable. A stat Duoneb treatment was given by RT and I came to assess patient. Patient claims that she had a good night without orthopnea or PND. Upon wakening this am, because abruptly SOB. Did have a cough yesterday; however, has asthma and this isn't unusual. Cough has increased She is on supplemental O2 but has been since her Covid diagnosis in June. Repeat Covid test in the ED was negative. CXR in the ED showed stable dilated pulm vesels. was scheduled for OR today for I&D denying F/C or CP. Cough is dry. Patient is NOT receiving IVF (maintenance). Is on her routine PO lasix from home. Did receive 1L IVF in the ED. Fluid balance is +450cc over 25 hours. Review of Systems Review of Systems: + dry cough and increased SOB All systems reviewed and are unremarkable except as noted in HPI and below Denies fevers, chills, headache, nasal congestion, sore throat, chest pain, abdominal pain, nausea, vomiting, dysuria, hematuria, frequency, skin lesions or rashes. Physical Exam Physical Exam: General: Initially noted to be in mild respiratory distress. She was tachypneic Neck: No JVD. Negative hepatojugular reflex Cardiac: Irregularly irregular with a rate of 104 Lungs: Breathing is mildly labored. Patient tachypneic. Audible rhonchi heard at bedside. Upon exam, patient has scattered and coarse rhonchi throughout that mobilizes with coughing with fine crackles at the bases Abdomen: Normoactive X4. Soft and nontender in all quadrants. Extremities: + Adiposity with trace pitting edema Neuro: A&O X4 cranial nerves II through XII are grossly intact no focal neuro deficits Skin: Wound not examined today due to change in respiratory status Results & Data Results & Data ([facility]) Vital Signs (Past 12 Hours) Vital Signs Temp Pulse Pulse Resp BP Pulse Ox 09/08/20 07:34 94 H 22 95 09/08/20 07:07 36.8 C 93 H 18 110/63 98 09/07/20 22:28 36.8 C 106 H 16 105/59 L 98 Laboratory Results 09/08/20 05:11 09/08/20 05:11 PG Care Time/CCT Total # of Minutes Spent Total Time Spent with Patient: Total time spent is greater than 50% in coordination of care (as documented) at patient's floor/unit and/or counseling patient: Coding [place] [address] Subseq Hosp Care Lvl 3 Patient Type Established History Comprehensive Exam Comprehensive Medical Decision Making High Complexity Diagnoses Flash pulmonary edema J81.0 Decubitus skin ulcer L89.220 Laterality: left Pressure injury location: hip Pressure injury stage: unstageable Atrial fibrillation I48.91 Diabetes mellitus, type 2 E11.9 (1) Decubitus skin ulcer Laterality: left Pressure injury location: hip Pressure injury stage: unstageable Qualified Code(s): L89.220 - Pressure ulcer of left hip, unstageable
[2020-09-08] MEDS ORDERED: FUROSEMIDE 40 MG in SYRINGE 0 ML IV ONE (08:30)
[2020-09-08] MEDS: SENNA 8.6 MG TAB PO SCH (08:32)
[2020-09-08] MEDS: DOCUSATE SODIUM 100 MG CAP PO SCH (08:32)
[2020-09-08] MEDS: PANTOprazole 40 MG TAB PO SCH (08:33)
[2020-09-08] MEDS: AMIODARONE 200 MG TAB PO SCH ×2 (08:33→20:56)
[2020-09-08] MEDS: METOPROLOL SUCC 50MG EXT REL TAB PO SCH ×2 (08:33→20:56)
[2020-09-08 08:38] LABS: Base Excess ABG 3.3 mEq/L (-9-1.8); HCO3 ABG 26 mmol/L (19-24); Oxygen Saturation ABG 95.3 % (90-95); PCO2 ABG 32 mmHg (35-46); PO2 ABG 66 mmHg (80-95)
[2020-09-08 08:41] LABS: Allen Test Pos (Pos)
[2020-09-08] MEDS: guaiFENesin 600 MG TABCR PO SCH ×2 (08:41→20:56)
[2020-09-08 08:42] LABS: pH ABG 7.52 (7.35-7.45)
[2020-09-08] MEDS: INSULIN GLARGINE SOLOSTAR 100 UNITS/ML 3 ML PEN SQ SCH (08:53)
[2020-09-08 09:01] LABS: Creatine Kinase 24 U/L (26-192); Creatine Kinase MB < 1.0 ng/ml (0.5-3.6); Troponin I < 0.015 ng/ml (0-0.045)
--- NOTE | 2020-09-08 09:27 | XRay Report ---
XR chest 1V portable HISTORY: 80 years-old Female increase sob acute shortness of breath COMPARISON: Chest radiograph 09/06/2020 TECHNIQUE: Portable AP view the chest FINDINGS: Moderate to marked enlargement of the cardiac silhouette. Surgical clips project over the epigastric distribution. Chronic right hemidiaphragmatic elevation. Mildly progressed interstitial coarsening. N o pneumothorax. Blunting of the costophrenic angles. No lobar airspace consolidation. Degenerative ch anges of the shoulders and spine. IMPRESSION: 1. Cardiomegaly with progressive interstitial coarsening suggestive of mild pulmonary edema. 2. Probable trace pleural effusions. ACT 112: Negative or not required by law. The above report was generated using voice recognition software. It may contain grammatical, syntax o r spelling errors. Electronically signed by: Uzair Martin M.D. 09/08/2020 9:25 AM
[2020-09-08 10:40] LABS: Base Excess ABG 3.7 mEq/L (-9-1.8); HCO3 ABG 28 mmol/L (19-24); Oxygen Saturation ABG 96.4 % (90-95); PCO2 ABG 42 mmHg (35-46); PO2 ABG 82 mmHg (80-95); pH ABG 7.45 (7.35-7.45)
[2020-09-08 10:41] LABS: Allen Test Pos (Pos)
[2020-09-08] MEDS ORDERED: COLLAGENASE OINT 30 GM TUBE TOP PRN (10:45)
[2020-09-08] MEDS ORDERED: ALUMINUM/MAGNESIUM/SIMETH (MAALOX MAX) 30 ML UDC PO PRN (11:05)
[2020-09-08] MEDS ORDERED: INSULIN HUMAN REGULAR SC SCH (11:30)
[2020-09-08] MEDS: IPRATROPIUM BROMIDE NEB SOLN 0.02% 2.5 ML VIAL NEB SCH ×2 (12:44→19:25)
[2020-09-08] MEDS: LEVALBUTEROL HCL 0.63 MG/3 ML NEB NEB SCH ×2 (12:44→19:25)
[2020-09-08] MEDS ORDERED: DIGOXIN 250 MCG in SYRINGE 9 ML IV STA (15:03)
[2020-09-08] MEDS: DAPTOmycin 300 MG in SYRINGE 0 ML IV SCH (15:33)
[2020-09-08] MEDS: INSULIN GLARGINE SOLOSTAR 100 UNITS/ML 3 ML PEN SC SCH ×2 (15:34→20:58)
[2020-09-08] MEDS ORDERED: FUROSEMIDE 20 MG in SYRINGE 0 ML IV ONE (16:00)
[2020-09-08] MEDS: INSULIN ASPART 100 UNITS/ML 3 ML PEN SC SCH ×2 (16:58→20:57)
[2020-09-08] MEDS: AZTREONAM 2,000 MG in DEXTROSE 5% 100 ML IV SCH (17:07)
[2020-09-08] MEDS: BUDESONIDE 0.5 MG/2 ML VIAL (PULMICORT) NEB SCH (19:23)
[2020-09-08] MEDS: FORMOTEROL 20 MCG/2 ML VIAL NEB SCH (19:24)
[2020-09-08] MEDS: ATORVASTATIN 40 MG TAB PO SCH (20:56)
[2020-09-08] MEDS: CITALOPRAM 40 MG TAB PO SCH (20:56)
[2020-09-08] MEDS: GABAPENTIN 300 MG CAP PO SCH (20:56)
[2020-09-09] MEDS: AZTREONAM 2,000 MG in DEXTROSE 5% 100 ML IV SCH (03:42)
[2020-09-09] MEDS: HEPARIN SOD 5,000 UNIT/0.5 ML VIAL SQ SCH ×3 (05:38→21:10)
[2020-09-09 06:44] LABS: Basophils # (auto) 0.01 K/uL (0-0.2); Basophils % (auto) 0.1 %; Eosinophils # (auto) 0.32 K/uL (0-0.5); Eosinophils % (auto) 4.2 %; Hematocrit (blood only) 29.5 % (37-47); Immature Granulocytes # (auto) 0.03 K/uL (0.00-0.02); Immature Granulocytes % (auto) 0.4 %; Lymphocytes % (auto) 18.2 %; Mean Corpuscular Hemoglobin 28.8 pg (25-34); Mean Corpuscular Hgb Conc 30.5 g/dL (32-36); Mean Corpuscular Volume 94.6 fL (80-100); Monocytes # (auto) 0.64 K/uL (0.11-0.59); Monocytes % (auto) 8.3 %; Neutrophils # (auto) 5.28 K/uL (1.4-6.5); Neutrophils % (auto) 68.8 %; Platelet Count 239 K/uL (130-400); RDW Coefficient of Variation 15.7 % (11.5-14.5); RDW Standard Deviation 54.7 fL (36.4-46.3); Red Blood Count 3.12 M/uL (4.2-5.4); White Blood Count 7.68 K/uL (4.8-10.8)
[2020-09-09] MEDS: FORMOTEROL 20 MCG/2 ML VIAL NEB SCH ×2 (07:24→19:09)
[2020-09-09] MEDS: BUDESONIDE 0.5 MG/2 ML VIAL (PULMICORT) NEB SCH ×2 (07:24→19:09)
[2020-09-09] MEDS: LEVALBUTEROL HCL 0.63 MG/3 ML NEB NEB SCH ×4 (07:29→19:09)
[2020-09-09] MEDS: IPRATROPIUM BROMIDE NEB SOLN 0.02% 2.5 ML VIAL NEB SCH ×4 (07:29→19:09)
[2020-09-09 07:38] LABS: Albumin Globulin Ratio 0.5 (0.9-2); Bilirubin,Total 0.6 mg/dl (0.2-1); Calcium 8.1 mg/dl (8.5-10.1); Est GFR (African American) 34.9 ml/min; Est GFR (Non-African American) 30.1 ml/min; Magnesium 1.8 mg/dl (1.8-2.4); Potassium 3.6 mmol/L (3.5-5.1)
[2020-09-09] MEDS: SENNA 8.6 MG TAB PO SCH (08:16)
[2020-09-09] MEDS: FUROSEMIDE 40 MG TAB PO SCH (08:16)
[2020-09-09] MEDS: DOCUSATE SODIUM 100 MG CAP PO SCH (08:16)
[2020-09-09] MEDS: PANTOprazole 40 MG TAB PO SCH (08:16)
[2020-09-09] MEDS: METOPROLOL SUCC 50MG EXT REL TAB PO SCH ×2 (08:17→21:10)
[2020-09-09] MEDS: AMIODARONE 200 MG TAB PO SCH ×2 (08:17→21:10)
[2020-09-09] MEDS: guaiFENesin 600 MG TABCR PO SCH ×2 (08:18→21:10)
[2020-09-09] MEDS: INSULIN ASPART 100 UNITS/ML 3 ML PEN SC SCH ×5 (08:25→23:57)
[2020-09-09] MEDS ORDERED: PHARMACY GLYCEMIC MGMT CONSULT PRN (08:33)
[2020-09-09] MEDS ORDERED: MAGNESIUM SULFATE / D5W 1 GM/100 ML BAG IV ONE (10:00)
[2020-09-09] MEDS: POTASSIUM CHLORIDE / WTR 10 MEQ/100 ML PLCT IV SCH ×2 (11:13→13:07)
[2020-09-09] MEDS ORDERED: Nursing to Pharmacy Communication SCH (11:45)
--- NOTE | 2020-09-09 11:48 | Hospitalist Progress Note ---
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 once daily Her weight is down from previous Overall, she looks much improved since I saw her 6 weeks ago when she was 19 kg heavier Repeat chest x-ray on 09/09 with very small bilateral pleural effusions and pulmonary vascular congestion Follow daily weights, strict I's and O's, low-sodium diet (3) Atrial fibrillation: Paroxysmal atrial fibrillation Remains in A. fib but rates are controlled Continue amiodarone 200 mg twice daily for now-if remains in atrial fibrillation, could consider discontinuing amiodarone Continue digoxin 0.125 mg daily Continue to monitor on telemetry Replace potassium and magnesium to keep greater than 4.0 and 2.0 respectively Continue Toprol-XL 50 mg p.o. twice daily Is not on anticoagulation due to to recent previous history of severe acute blood loss anemia (4) Diabetes mellitus, type 2: With hypoglycemia this morning while n.p.o. Consult pharmacy for glycemic control Continue insulin management On Lantus 20 units daily at home Hemoglobin A1c here is only 5.4%-we will likely need a decrease in home dosing of insulin upon discharge (5) Anemia: Hemoglobin is stable at 9.0 Had recent severe bleeding episodes requiring transfusions 1 month ago Follow CBC Avoiding anticoagulation (6) CKD (chronic kidney disease): Creatinine 1.82 upon admission, with range 1.95-2.26 Creatinine today is stable at 1.59 -Avoid nephrotoxins -renally dose meds when appropriate -follow BMP (7) Hypertension: Blood pressures are controlled Continue Toprol-XL (8) Asthma: No acute issues DuoNebs every 2 hours as needed Continue formoterol nebs twice daily, continue budesonide twice daily (9) Anxiety: Continue citalopram Is on lorazepam as needed at home-not receiving here (10) DVT prophylaxis: Heparin SQ Disposition-continued stay on PCU, eventually will need to go back to rehab PT/OT consults placed Admission and Anticipated Discharge Date Admission Date: September 06, 2020 Subjective Patient was seen on 2 occasions today. First prior to her surgery and later in the day after her surgery with her daughter at the bedside. She reports pain in her bottom both times. She denies shortness of breath or chest pain, no abdominal pain or nausea. She did feel sweaty and weak this morning when she had hypoglycemia. She was placed on a D5W drip at a low rate while she was n.p.o. for her procedure. I discussed her care with the surgeon as well as anesthesiology Telemetry with atrial fibrillation with rates in the 80s Review of Systems Review of Systems: All systems reviewed & are unremarkable except as noted in HPI & below Physical Exam Constitutional: WD/WN, vitals as above + morbidly obese Eyes: + anicteric sclerae Neck: trachea midline, no thyromegaly Respiratory: + abnormal respiratory effort (Has intermittent periods of tachypnea at rest) and no cough Auscultation: + diminished lung sounds (At bases bilaterally); no crackles and no wheezes Cardiovascular: Rate/Rhythm: regular rate and + irregularly irregular Heart Sounds: no murmur Extremities: + edema (1+ pitting edema of the legs bilaterally) Gastrointestinal (Abdomen): Inspection/Auscultation: normal bowel sounds; abdomen not distended Percussion/Palpation: abdomen soft and + abdominal mass (Residual palpable hematoma in the left lower quadrant); abdomen nontender Musculoskeletal: Extremities: extremities normal to inspection; no cyanosis and no clubbing Skin: no rashes, warm and dry Neurologic: moves all extremities and awake; no focal motor deficits Psychiatric: A+Ox3, euthymic affect Lymphatic: no lymphedema Results & Data Results & Data ([facility]) Vital Signs (Past 12 Hours) Vital Signs Temp Pulse Pulse Resp BP BP Pulse Ox 09/09/20 10:00 09/09/20 07:54 37.2 C 97 H 18 110/70 99 09/09/20 07:24 100 H 18 98 09/09/20 03:46 36.7 C 64 18 111/69 97 09/09/20 00:02 91 H 16 93 Pulse Ox 09/09/20 10:00 99 09/09/20 07:54 09/09/20 07:24 09/09/20 03:46 09/09/20 00:02 Laboratory Results 09/09/20 09/09/20 09/09/20 Range/Units 20:33 16:14 15:35 WBC (4.8-10.8) K/uL RBC (4.2-5.4) M/uL Hgb (12.0-16.0) g/dL Hct (37-47) % MCV (80-100) fL MCH (25-34) pg MCHC (32-36) g/dL RDW Std Deviation (36.4-46.3) fL RDW Coeff of Erin (11.5-14.5) % Plt Count (130-400) K/uL MPV (7.4-10.4) fL Immature Gran % (Auto) % Neut % (Auto) % Lymph % (Auto) % [place] % (Auto) % Eos % (Auto) % Baso % (Auto) % Neut # (Auto) (1.4-6.5) K/uL Lymph # (Auto) (1.2-3.4) K/uL [place] # (Auto) (0.11-0.59) K/uL Eos # (Auto) (0-0.5) K/uL Baso # (Auto) (0-0.2) K/uL Immature Gran # (Auto) (0.00-0.02) K/uL Sodium (136-145) mmol/L Potassium (3.5-5.1) mmol/L Chloride (98-107) mmol/L Carbon Dioxide (21-32) mmol/L Anion Gap (3-11) BUN (7-18) mg/dl Creatinine (0.6-1.2) mg/dl Est Cr Clr Drug Dosing ml/min Est GFR ( Amer) ml/min Est GFR (Non-Af Amer) ml/min POC Glucose 132 H 103 H 104 H (70-99) mg/dl Fasting Glucose (70-99) mg/dl Calcium (8.5-10.1) mg/dl Magnesium (1.8-2.4) mg/dl Total Bilirubin (0.2-1) mg/dl AST (15-37) U/L ALT (12-78) U/L Alkaline Phosphatase (45-117) U/L Total Protein (6.4-8.2) gm/dl Albumin (3.4-5.0) gm/dl Globulin (2.5-4.0) gm/dl Albumin/Globulin Ratio (0.9-2) Digoxin (0.8-2.0) ng/ml 09/09/20 09/09/20 09/09/20 Range/Units 14:30 11:29 09:11 WBC (4.8-10.8) K/uL RBC (4.2-5.4) M/uL Hgb (12.0-16.0) g/dL Hct (37-47) % MCV (80-100) fL MCH (25-34) pg MCHC (32-36) g/dL RDW Std Deviation (36.4-46.3) fL RDW Coeff of Erin (11.5-14.5) % Plt Count (130-400) K/uL MPV (7.4-10.4) fL Immature Gran % (Auto) % Neut % (Auto) % Lymph % (Auto) % [place] % (Auto) % Eos % (Auto) % Baso % (Auto) % Neut # (Auto) (1.4-6.5) K/uL Lymph # (Auto) (1.2-3.4) K/uL [place] # (Auto) (0.11-0.59) K/uL Eos # (Auto) (0-0.5) K/uL Baso # (Auto) (0-0.2) K/uL Immature Gran # (Auto) (0.00-0.02) K/uL Sodium (136-145) mmol/L Potassium (3.5-5.1) mmol/L Chloride (98-107) mmol/L Carbon Dioxide (21-32) mmol/L Anion Gap (3-11) BUN (7-18) mg/dl Creatinine (0.6-1.2) mg/dl Est Cr Clr Drug Dosing ml/min Est GFR ( Amer) ml/min Est GFR (Non-Af Amer) ml/min POC Glucose 78 82 112 H (70-99) mg/dl Fasting Glucose (70-99) mg/dl Calcium (8.5-10.1) mg/dl Magnesium (1.8-2.4) mg/dl Total Bilirubin (0.2-1) mg/dl AST (15-37) U/L ALT (12-78) U/L Alkaline Phosphatase (45-117) U/L Total Protein (6.4-8.2) gm/dl Albumin (3.4-5.0) gm/dl Globulin (2.5-4.0) gm/dl Albumin/Globulin Ratio (0.9-2) Digoxin (0.8-2.0) ng/ml 09/09/20 09/09/20 09/09/20 Range/Units 08:00 07:39 07:38 WBC (4.8-10.8) K/uL RBC (4.2-5.4) M/uL Hgb (12.0-16.0) g/dL Hct (37-47) % MCV (80-100) fL MCH (25-34) pg MCHC (32-36) g/dL RDW Std Deviation (36.4-46.3) fL RDW Coeff of Erin (11.5-14.5) % Plt Count (130-400) K/uL MPV (7.4-10.4) fL Immature Gran % (Auto) % Neut % (Auto) % Lymph % (Auto) % [place] % (Auto) % Eos % (Auto) % Baso % (Auto) % Neut # (Auto) (1.4-6.5) K/uL Lymph # (Auto) (1.2-3.4) K/uL [place] # (Auto) (0.11-0.59) K/uL Eos # (Auto) (0-0.5) K/uL Baso # (Auto) (0-0.2) K/uL Immature Gran # (Auto) (0.00-0.02) K/uL Sodium (136-145) mmol/L Potassium (3.5-5.1) mmol/L Chloride (98-107) mmol/L Carbon Dioxide (21-32) mmol/L Anion Gap (3-11) BUN (7-18) mg/dl Creatinine (0.6-1.2) mg/dl Est Cr Clr Drug Dosing ml/min Est GFR ( Amer) ml/min Est GFR (Non-Af Amer) ml/min POC Glucose 158 H 53 L* 50 L* (70-99) mg/dl Fasting Glucose (70-99) mg/dl Calcium (8.5-10.1) mg/dl Magnesium (1.8-2.4) mg/dl Total Bilirubin (0.2-1) mg/dl AST (15-37) U/L ALT (12-78) U/L Alkaline Phosphatase (45-117) U/L Total Protein (6.4-8.2) gm/dl Albumin (3.4-5.0) gm/dl Globulin (2.5-4.0) gm/dl Albumin/Globulin Ratio (0.9-2) Digoxin (0.8-2.0) ng/ml 09/09/20 09/09/20 09/09/20 Range/Units 06:26 06:26 06:26 WBC 7.68 (4.8-10.8) K/uL RBC 3.12 L (4.2-5.4) M/uL Hgb 9.0 L (12.0-16.0) g/dL Hct 29.5 L (37-47) % MCV 94.6 (80-100) fL MCH 28.8 (25-34) pg MCHC 30.5 L (32-36) g/dL RDW Std Deviation 54.7 H (36.4-46.3) fL RDW Coeff of Erin 15.7 H (11.5-14.5) % Plt Count 239 (130-400) K/uL MPV 9.0 (7.4-10.4) fL Immature Gran % (Auto) 0.4 % Neut % (Auto) 68.8 % Lymph % (Auto) 18.2 % [place]oul[place] % (Auto) 8.3 % Eos % (Auto) 4.2 % Baso % (Auto) 0.1 % Neut # (Auto) 5.28 (1.4-6.5) K/uL Lymph # (Auto) 1.40 (1.2-3.4) K/uL [place] # (Auto) 0.64 H (0.11-0.59) K/uL Eos # (Auto) 0.32 (0-0.5) K/uL Baso # (Auto) 0.01 (0-0.2) K/uL Immature Gran # (Auto) 0.03 H (0.00-0.02) K/uL Sodium 137 (136-145) mmol/L Potassium 3.6 (3.5-5.1) mmol/L Chloride 104 (98-107) mmol/L Carbon Dioxide 30 (21-32) mmol/L Anion Gap 3.0 (3-11) BUN 50 H (7-18) mg/dl Creatinine 1.59 H (0.6-1.2) mg/dl Est Cr Clr Drug Dosing 34.0 ml/min Est GFR ( Amer) 34.9 ml/min Est GFR (Non-Af Amer) 30.1 ml/min POC Glucose (70-99) mg/dl Fasting Glucose 49 L* (70-99) mg/dl Calcium 8.1 L (8.5-10.1) mg/dl Magnesium 1.8 (1.8-2.4) mg/dl Total Bilirubin 0.6 (0.2-1) mg/dl AST 11 L (15-37) U/L ALT 10 L (12-78) U/L Alkaline Phosphatase 98 (45-117) U/L Total Protein 6.0 L (6.4-8.2) gm/dl Albumin 2.0 L (3.4-5.0) gm/dl Globulin 4.0 (2.5-4.0) gm/dl Albumin/Globulin Ratio 0.5 L (0.9-2) Digoxin 0.5 L (0.8-2.0) ng/ml 09/08/20 Range/Units 20:55 WBC (4.8-10.8) K/uL RBC (4.2-5.4) M/uL Hgb (12.0-16.0) g/dL Hct (37-47) % MCV (80-100) fL MCH (25-34) pg MCHC (32-36) g/dL RDW Std Deviation (36.4-46.3) fL RDW Coeff of Erin (11.5-14.5) % Plt Count (130-400) K/uL MPV (7.4-10.4) fL Immature Gran % (Auto) % Neut % (Auto) % Lymph % (Auto) % [place] % (Auto) % Eos % (Auto) % Baso % (Auto) % Neut # (Auto) (1.4-6.5) K/uL Lymph # (Auto) (1.2-3.4) K/uL [place] # (Auto) (0.11-0.59) K/uL Eos # (Auto) (0-0.5) K/uL Baso # (Auto) (0-0.2) K/uL Immature Gran # (Auto) (0.00-0.02) K/uL Sodium (136-145) mmol/L Potassium (3.5-5.1) mmol/L Chloride (98-107) mmol/L Carbon Dioxide (21-32) mmol/L Anion Gap (3-11) BUN (7-18) mg/dl Creatinine (0.6-1.2) mg/dl Est Cr Clr Drug Dosing ml/min Est GFR ( Amer) ml/min Est GFR (Non-Af Amer) ml/min POC Glucose 91 (70-99) mg/dl Fasting Glucose (70-99) mg/dl Calcium (8.5-10.1) mg/dl Magnesium (1.8-2.4) mg/dl Total Bilirubin (0.2-1) mg/dl AST (15-37) U/L ALT (12-78) U/L Alkaline Phosphatase (45-117) U/L Total Protein (6.4-8.2) gm/dl Albumin (3.4-5.0) gm/dl Globulin (2.5-4.0) gm/dl Albumin/Globulin Ratio (0.9-2) Digoxin (0.8-2.0) ng/ml Diagnostic Findings Chest X-Ray 09/09/20 12:41 XR chest 1V portable HISTORY: 80 years-old Female preoperative, history pulmonary edema preoperative exam. COMPARISON: 09/08/2020 TECHNIQUE: Portable AP view of the chest FINDINGS: Cardiac silhouette is enlarged. Pulmonary vascular congestion with persistent interstitial coarsening and mild bibasilar densities. Trace pleural effusions. No pneumothorax. Degenerative changes of the shoulders and spine. Surgical clips of the upper abdomen. IMPRESSION: 1. Cardiomegaly with pulmonary vascular congestion and persistent interstitial coarsening suggestive of pulmonary edema. 2. Trace pleural effusions with mild persistent bibasilar opacities. ACT 112: Negative or not required by law. The above report was generated using voice recognition software. It may contain grammatical, syntax or spelling errors. Electronically signed by: Uzair Martin M.D. 09/09/2020 1:10 PM PG Care Time/CCT Total # of Minutes Spent Total Time Spent with Patient: Total time spent is greater than 50% in coordination of care (as documented) at patient's floor/unit and/or counseling patient: Coding Level of Care Code 07114 Subseq Hosp Care Lvl 3 Diagnoses Decubitus skin ulcer L89.220 Laterality: left Pressure injury location: hip Pressure injury stage: unstageable CHF (congestive heart failure) I50.9 Heart failure chronicity: unspecified Heart failure type: unspecified Atrial fibrillation I48.91 Diabetes mellitus, type 2 E11.9 Anemia D64.9 CKD (chronic kidney disease) N18.9 Chronic kidney disease stage: unspecified stage Hypertension I10 Asthma J45.909 Anxiety F41.9 DVT prophylaxis Z29.9 (1) CHF (congestive heart failure) Heart failure chronicity: unspecified Heart failure type: unspecified Qualified Code(s): I50.9 - Heart failure, unspecified (2) CKD (chronic kidney disease) Chronic kidney disease stage: unspecified stage Qualified Code(s): N18.9 - Chronic kidney disease, unspecified (3) Decubitus skin ulcer Laterality: left Pressure injury location: hip Pressure injury stage: unstageable Qualified Code(s): L89.220 - Pressure ulcer of left hip, unstageable
[2020-09-09] MEDS ORDERED: DEXTROSE 5% 1,000 ML IV SCH (12:00)
[2020-09-09] MEDS ORDERED: AZTREONAM 2,000 MG in DEXTROSE 5% 100 ML IV SCH (12:00)
--- NOTE | 2020-09-09 12:25 | History & Physical Bridge Note ---
Date of Service September 09, 2020 History & Physical Bridge Note I have examined the patient, reviewed the History & Physical and in the interval since the performance of the History & Physical I have noted the following changes of clinical significance: no changes noted
--- NOTE | 2020-09-09 12:32 | XCELERA ---
[id number]
--- NOTE | 2020-09-09 13:11 | XRay Report ---
XR chest 1V portable HISTORY: 80 years-old Female preoperative, history pulmonary edema preoperative exam. COMPARISON: 09/08/2020 TECHNIQUE: Portable AP view of the chest FINDINGS: Cardiac silhouette is enlarged. Pulmonary vascular congestion with persistent interstitial coarsening and mild bibasilar densities. Trace pleural effusions. No pneumothorax. Degenerative changes of the shoulders and spine. Surgical clips of the upper abdomen. IMPRESSION: 1. Cardiomegaly with pulmonary vascular congestion and persistent interstitial coarsening suggestive of pulmonary edema. 2. Trace pleural effusions with mild persistent bibasilar opacities. ACT 112: Negative or not required by law. The above report was generated using voice recognition software. It may contain grammatical, syntax o r spelling errors. Electronically signed by: Uzair Martin M.D. 09/09/2020 1:10 PM
[2020-09-09] MEDS ORDERED: MIDAZOLAM HCL 1 MG/ML 2ML VIAL ONE (13:56)
[2020-09-09] MEDS ORDERED: PROPOFOL IV EMULSION 10 MG/ML 20 ML VIAL IV ONE (13:56)
[2020-09-09] MEDS ORDERED: LIDOCAINE 2% 2 ML VIAL/AMP(20MG/ML) INFIL ONE (13:56)
[2020-09-09] MEDS ORDERED: fentaNYL citrate 100 MCG/2 ML VIAL ONE (13:56)
[2020-09-09] MEDS ORDERED: KETAMINE 50 MG/5 ML SYRINGE ONE (13:56)
[2020-09-09] MEDS ORDERED: BUPIVACAINE 0.25% 30 ML VIAL ONE (14:14)
[2020-09-09] MEDS ORDERED: ONDANSETRON INJ 2 MG/ML 2 ML VIAL IV PRN (14:14)
[2020-09-09] MEDS ORDERED: ePHEDrine sulfate 50 MG/ML AMP IV PRN (14:14)
[2020-09-09] MEDS ORDERED: ATROPINE SULFATE 0.1 MG/ML 10ML SYR IV PRN (14:14)
[2020-09-09] MEDS ORDERED: EPINEPHrine INJ 1 MG/ML AMP ONE (14:14)
[2020-09-09] MEDS ORDERED: fentaNYL citrate 100 MCG/2 ML VIAL IV PRN (14:14)
[2020-09-09] MEDS ORDERED: PHENYLEPHRINE 100MCG/ML 5ML SYR IV PRN (14:14)
--- NOTE | 2020-09-09 15:01 | Pharmacy Report ---
Pharmacy Glycemic Short Note 2 - Date of Service September 09, 2020 - Glycemic Short BSG Results (Last 24 hours): 09/08/20 09/08/20 09/08/20 16:56 20:10 20:55 POC Glucose 81 98 91 Fasting Glucose 09/09/20 09/09/20 09/09/20 06:26 07:38 07:39 POC Glucose 50 L* 53 L* Fasting Glucose 49 L* 09/09/20 09/09/20 09/09/20 08:00 09:11 11:29 POC Glucose 158 H 112 H 82 Fasting Glucose 09/09/20 14:30 POC Glucose 78 Fasting Glucose OUTPATIENT ANTIDIABETIC REGIMEN: * Lantus 20 units daily ASSESSMENT: * Ms Mcbride is an 80 y/o F with a PMH of IDDM who presents with a decubitus ulcer debridement. * Patient initially was started on Lantus 10 units BID with Novolog CF 20 CR 7. * Patient's BSGs yesterday were 34-927-64-98 mg/dL. Fasting today was 50. Pharmacy consulted after hypoglycemic event. * Patient was NPO yesterday for possible debridement then given diet after flash pulmonary edema. * Patient continues to be NPO today for debridement (occurring this afternoon) then may have diet ordered. * Patient current has D5 @ 70 cc/hr running. * Will hold off on ordering Lantus at this time since patient suffered from hypoglycemic event. Add overnight checks. * Novolog CF 30 and CR 10.( weight-based stress of 2) PLAN FOR INPATIENT GLYCEMIC CONTROL: * Basal insulin * on hold for now * Bolus insulin * NovoLog per scale ACHS or Q6hrs while NPO * Goal Range: Low 110 mg/dL - High 140 mg/dL * Correction Factor: 30 mg/dL/unit * Nutritional / Prandial insulin per carb ratio of 1 unit per 10 grams CHO consumed PLAN FOR DISCHARGE: * tbd
--- NOTE | 2020-09-09 15:36 | Post Operative Brief Note ---
PG Immediate Post Op with CF Date of Surgery September 09, 2020 Pre & Post Diagnosis Operation Date: 09/09/20 07:30 Pre-Op Diagnosis: Left ischial decubitus ulcer Post-Op Diagnosis: Left ischial decubitus ulcer I identified the patient and participated in the time-out.: Yes Procedure Operation Date: 09/09/20 07:30 Actual Procedures p Debridement of left ischial Decubitus down to muscle 4cm x 3cm(Left) - Deepak Bonilla DO Surgeon Deepak Bonilla DO Manager [employer] Thony Pitt PA-C Estimated Blood Loss 5 Findings See Below 4cm x 3cm left ischial ulcer with necrotic tissue down to the muscle level Specimens Specimen Description: CULTURE: 1. LEFT ISCHIAL ULCER 2. LEFT ISCHIAL ULCER TISSUE Drains Hess Catheter Anesthesia Type MAC Complications none Disposition Disposition: Recovery Room
--- NOTE | 2020-09-09 15:42 | Operative Report ---
PG Post Operative Report Pre & Post Diagnosis Operation Date: 09/09/20 07:30 Pre-Op Diagnosis: Left ischial decubitus ulcer Post-Op Diagnosis: Left ischial decubitus ulcer I identified the patient and participated in the time-out.: Yes Procedure Operation Date: 09/09/20 07:30 Actual Procedures p Debridement of left ischial Decubitus down to muscle 4cm x 3cm(Left) - Deepak Bonilla DO Surgeon Deepak Bonilla DO System Support Analyst Thony Pitt PA-C Estimated Blood Loss 5 Findings See Below 4cm x 3cm left ischial ulcer with necrotic tissue down to muscle level Specimens Left ischial tissue for culture Drains None Anesthesia Type MAC Complications none Disposition Disposition: Recovery Room Indications 80 yo female with left ischial decubitus ulcer requiring operative debridment Description of Procedure The patient was brought to the operating room and underwent MAC anesthesia without issue. At this time the patient was placed in the right lateral decubitus position. The left buttock and lower back were prepped and draped in the usual sterile fashion. Appropriate pre-operative antibiotics were ad ministered. A timeout was called. The procedure was verified as Excisional debridement of left ischial ulcer. Surgical, anesthesia and nursing teams agreed and the procedure was begun. The right buttock wound was explored and had necrotic tissue centrally as well as some undermining and breakdown of skin around the edges. The skin and subcutaneous tissue that made up the wound was excised using a #10 blade scalpel so that the undermining was no longer present and healthy bleeding tissue was encountered. The wound was then debrided in an excisional manner with a #10 blade scalpel until healthy bleeding was found. At the base of the wound, there was left ischium present but covered by intact muscle. The wound was irrigated until clear. At this time hemostasis was achieved using electrocautery. Hemostasis was complete. At this time the incision was packed with a wet to dry Kerlix and a sterile dressing was applied. At this time the patient was awakened from anesthesia having remained stable throughout the entire case and transported to PACU in stable condition. This procedure represents an excisional debridement of less than 20cm2 down to muscle. The physician store assistant was present and scrubbed for the entire case. She was essential in positioning, prepping and draping the patient, retraction and exposure, placement of the dressing. I attest to the content of the Intraoperative Record and any orders documented therein. Any exceptions are noted below.
--- NOTE | 2020-09-09 16:26 | Anesthesiology Progress Note ---
Date of Service September 09, 2020 Anesthesia Post Procedure Vital Signs Vital Signs: Temp Pulse Pulse Pulse Resp BP BP 09/09/20 15:47 111 H 24 111/58 L 09/09/20 15:35 36.8 C 102 H 22 125/74 09/09/20 14:26 36.9 C 100 H 24 116/71 09/09/20 12:47 106 H 18 09/09/20 11:57 36.8 C 91 H 17 128/70 09/09/20 10:00 09/09/20 07:54 37.2 C 97 H 18 110/70 09/09/20 07:24 100 H 18 09/09/20 03:46 36.7 C 64 18 111/69 09/09/20 00:02 91 H 16 09/08/20 23:23 90 09/08/20 22:43 36.8 C 92 H 20 107/58 L 09/08/20 20:00 36.9 C 125 H 18 100/63 09/08/20 19:26 84 16 Pulse Ox Pulse Ox 09/09/20 15:47 93 09/09/20 15:35 93 09/09/20 14:26 92 09/09/20 12:47 98 09/09/20 11:57 92 09/09/20 10:00 99 09/09/20 07:54 99 09/09/20 07:24 98 09/09/20 03:46 97 09/09/20 00:02 93 09/08/20 23:23 09/08/20 22:43 96 09/08/20 20:00 100 09/08/20 19:26 98 Pain Intensity Left Buttock: Pain Intensity: 2 Right Breast: Pain Intensity: 2 Transfer of Care Handoff Completed per policy Notes Mental Status: alert / awake / arousable Patient Amnestic to Procedure: Yes Nausea / Vomiting: adequately controlled Pain: adequately controlled Airway Patency, RR, SpO2: stable & adequate BP & HR: stable & adequate Hydration State: stable & adequate Anesthetic Complications: no major complications apparent and Pt Satisfied with anesthetic care Notes: The patient tolerated the procedure well.
[2020-09-09] MEDS: CEFEPIME 2,000 MG in SYRINGE 0 ML IV SCH (16:38)
[2020-09-09] MEDS: DAPTOmycin 300 MG in SYRINGE 0 ML IV SCH (16:38)
[2020-09-09] MEDS: DIGOXIN 0.125 MG TAB PO SCH (16:39)
--- NOTE | 2020-09-09 17:48 | Electrocardiogram Report ---
Test Reason : Blood Pressure : / mmHG Vent. Rate : 111 BPM Atrial Rate : 468 BPM P-R Int : 000 ms QRS Dur : 112 ms QT Int : 362 ms P-R-T Axes : 000 -56 072 degrees QTc Int : 492 ms Atrial fibrillation with rapid ventricular response Left axis deviation Possible Anterior infarct , age undetermined Abnormal ECG When compared with ECG of 30-JUL-2020 12:13, Atrial fibrillation has replaced Sinus rhythm Borderline criteria for Anterior infarct are now Present Nonspecific T wave abnormality now evident in Lateral leads Confirmed by Mazin Ashraf ([id number]) on 09/10/2020 6:36:10 PM Referred By: Oralia Colmenares Confirmed By:George Ashraf
[2020-09-09] MEDS: ACETAMINOPHEN 325 MG TAB PO PRN (21:10)
[2020-09-09] MEDS: ATORVASTATIN 40 MG TAB PO SCH (21:10)
[2020-09-09] MEDS: CITALOPRAM 40 MG TAB PO SCH (21:10)
[2020-09-09] MEDS: GABAPENTIN 300 MG CAP PO SCH (21:10)
[2020-09-10] MEDS: IPRATROPIUM BROMIDE NEB SOLN 0.02% 2.5 ML VIAL NEB SCH ×4 (00:56→19:26)
[2020-09-10] MEDS: LEVALBUTEROL HCL 0.63 MG/3 ML NEB NEB SCH ×4 (00:56→19:27)
[2020-09-10] MEDS: INSULIN ASPART 100 UNITS/ML 3 ML PEN SC SCH ×5 (04:14→21:05)
[2020-09-10] MEDS: HEPARIN SOD 5,000 UNIT/0.5 ML VIAL SQ SCH ×3 (06:19→21:06)
[2020-09-10] MEDS: CEFEPIME 2,000 MG in SYRINGE 0 ML IV SCH ×2 (06:19→16:55)
[2020-09-10 07:05] LABS: Basophils # (auto) 0.01 K/uL (0-0.2); Basophils % (auto) 0.1 %; Eosinophils # (auto) 0.27 K/uL (0-0.5); Eosinophils % (auto) 3.6 %; Hematocrit (blood only) 29.5 % (37-47); Immature Granulocytes # (auto) 0.03 K/uL (0.00-0.02); Immature Granulocytes % (auto) 0.4 %; Lymphocytes # (auto) 1.47 K/uL (1.2-3.4); Lymphocytes % (auto) 19.5 %; Mean Corpuscular Hemoglobin 28.5 pg (25-34); Mean Corpuscular Hgb Conc 30.5 g/dL (32-36); Mean Corpuscular Volume 93.4 fL (80-100); Monocytes % (auto) 9.3 %; Neutrophils # (auto) 5.07 K/uL (1.4-6.5); Neutrophils % (auto) 67.1 %; Platelet Count 277 K/uL (130-400); RDW Coefficient of Variation 15.8 % (11.5-14.5); RDW Standard Deviation 53.8 fL (36.4-46.3); Red Blood Count 3.16 M/uL (4.2-5.4); White Blood Count 7.55 K/uL (4.8-10.8)
[2020-09-10] MEDS: FORMOTEROL 20 MCG/2 ML VIAL NEB SCH ×2 (07:15→19:26)
[2020-09-10] MEDS: BUDESONIDE 0.5 MG/2 ML VIAL (PULMICORT) NEB SCH ×2 (07:15→19:26)
[2020-09-10 07:42] LABS: BUN Creatinine Ratio 34.3 (10-20); Calcium 8.3 mg/dl (8.5-10.1); Creatinine Clr Calc Pharmacy 36.6 ml/min; Est GFR (African American) 38.1 ml/min; Est GFR (Non-African American) 32.9 ml/min; Magnesium 2.1 mg/dl (1.8-2.4); Potassium 3.7 mmol/L (3.5-5.1)
--- NOTE | 2020-09-10 07:59 | Surgery Progress Note ---
Date of Service September 10, 2020 Assessment & Plan (1) Decubitus skin ulcer: POD#1 debridement of L buttocks ulcer WBC 7.5, patient afebrile OR cultures pending. Pt continues on IV abx coverage (dapto + cefepime) Plan to have wound care evaluate wound today for further dressing recommendations Pt to follow up in wound care upon dispo Admission and Anticipated Discharge Date Admission Date: September 06, 2020 Subjective Patient is doing okay this AM. Says she has some soreness of her bottom where debridement was performed. Reports some nausea this AM related to not eating breakfast yet. Denies CP/shortness of breath. Physical Exam Physical Exam: awake/alert Constitutional: no acute distress Respiratory: normal respiratory effort Results & Data ([facility]) Vital Signs (Past 12 Hours) Vital Signs Temp Pulse Pulse Resp BP BP Pulse Ox 09/10/20 07:44 36.7 C 94 H 18 137/83 94 09/10/20 07:16 109 H 18 97 09/10/20 04:48 37.1 C 96 H 18 132/73 93 09/10/20 00:56 94 H 18 92 09/09/20 23:00 36.8 C 101 H 18 116/71 98 09/09/20 20:13 36.6 C 103 H 18 125/72 97 PG Care Time/CCT Total # of Minutes Spent Total Time Spent with Patient: Total time spent is greater than 50% in coordination of care (as documented) at patient's floor/unit and/or counseling patient: Coding Level of Care Code None Diagnoses Decubitus skin ulcer L89.220 Laterality: left Pressure injury location: hip Pressure injury stage: unstageable (1) Decubitus skin ulcer Laterality: left Pressure injury location: hip Pressure injury stage: unstageable Qualified Code(s): L89.220 - Pressure ulcer of left hip, unstageable
[2020-09-10] MEDS: ACETAMINOPHEN 325 MG TAB PO PRN ×2 (08:24→21:04)
[2020-09-10] MEDS: guaiFENesin 600 MG TABCR PO SCH ×2 (08:25→19:22)
[2020-09-10] MEDS: AMIODARONE 200 MG TAB PO SCH ×2 (08:25→19:23)
[2020-09-10] MEDS: FUROSEMIDE 40 MG TAB PO SCH (08:25)
[2020-09-10] MEDS: PANTOprazole 40 MG TAB PO SCH (08:25)
[2020-09-10] MEDS: DOCUSATE SODIUM 100 MG CAP PO SCH (08:25)
[2020-09-10] MEDS: METOPROLOL SUCC 50MG EXT REL TAB PO SCH ×2 (08:26→19:22)
[2020-09-10] MEDS: SENNA 8.6 MG TAB PO SCH (08:26)
--- NOTE | 2020-09-10 11:34 | Electrocardiogram Report ---
Test Reason : Blood Pressure : / mmHG Vent. Rate : 103 BPM Atrial Rate : 241 BPM P-R Int : 000 ms QRS Dur : 116 ms QT Int : 412 ms P-R-T Axes : 000 -52 061 degrees QTc Int : 539 ms Atrial fibrillation with rapid ventricular response Left axis deviation Prolonged QT Abnormal ECG When compared with ECG of 30-JUL-2020 12:13, Atrial fibrillation has replaced Sinus rhythm Confirmed by Mazin Ashraf ([id number]) on 09/09/2020 5:48:26 PM Also confirmed by Mazin Ashraf ([id number]), offline editor Fer Maloney ([id number]) on 09/10/2020 11:34:34 AM Referred By: Oralia Colmenares Confirmed By:George Ashraf
[2020-09-10] MEDS: metroNIDAZOLE 500 MG/100 ML BAG IV SCH ×2 (11:56→18:04)
[2020-09-10] MEDS ORDERED: oxyCODONE HCL IR 5 MG TAB (IMMEDIATE RELEASE) PO PRN (12:24)
--- NOTE | 2020-09-10 12:24 | Hospitalist Progress Note ---
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 once daily Her weight is down from previous Overall, she looks much improved since I saw her 6 weeks ago when she was 19 kg heavier Repeat chest x-ray on 09/09 with very small bilateral pleural effusions and pulmonary vascular congestion Follow daily weights, strict I's and O's, low-sodium diet (3) Atrial fibrillation: Paroxysmal atrial fibrillation Remains in A. fib for a few days now but rates are controlled Continue amiodarone 200 mg twice daily for now-if remains in atrial fibrillation, could consider discontinuing amiodarone-in the past however, she has converted back to sinus Continue digoxin 0.125 mg daily Continue to monitor on telemetry Replace potassium and magnesium to keep greater than 4.0 and 2.0 respectively- give KCl 10 meq po x 1 today Continue Toprol-XL 50 mg p.o. twice daily Is not on anticoagulation due to to recent previous history of severe acute blood loss anemia x 2 occasions (4) Diabetes mellitus, type 2: With hypoglycemia on 09/09 which is now improved Consult pharmacy for glycemic control Continue insulin management On Lantus 20 units daily at home Hemoglobin A1c here is only 5.4%-we will likely need a decrease in home dosing of insulin upon discharge (5) Anemia: Hemoglobin is stable at 9.0 for many days Had recent severe bleeding episodes requiring transfusions 1 month ago Follow CBC Avoiding anticoagulation (6) CKD (chronic kidney disease): Chronic kidney disease stage 4 Creatinine 1.82 upon admission, with range 1.95-2.26 Creatinine today is stable at 1.48 -Avoid nephrotoxins -renally dose meds when appropriate -follow BMP (7) Hypertension: Blood pressures are controlled Continue Toprol-XL (8) Asthma: No acute issues DuoNebs every 2 hours as needed Continue formoterol nebs twice daily, continue budesonide twice daily (9) Anxiety: Continue citalopram Is on lorazepam as needed at home-not receiving here (10) DVT prophylaxis: Heparin SQ Disposition-continued stay on PCU, eventually will need to go back to rehab PT/OT consults placed and pending Admission and Anticipated Discharge Date Admission Date: September 06, 2020 Subjective Pt having pain in her bottom, but otherwise feeling well. Had a BM today, denies SOB or CP. Is eating and drinking. Tele with Afib, rates 80-90s Review of Systems Review of Systems: All systems reviewed & are unremarkable except as noted in HPI & below Physical Exam Constitutional: WD/WN, vitals as above + morbidly obese Eyes: + anicteric sclerae Neck: trachea midline, no thyromegaly Respiratory: + abnormal respiratory effort (Has intermittent periods of tachypnea at rest) and no cough Auscultation: + diminished lung sounds (At bases bilaterally); no crackles and no wheezes Cardiovascular: Rate/Rhythm: regular rate and + irregularly irregular Heart Sounds: no murmur Extremities: + edema (trace pitting edema of the legs bilaterally) Gastrointestinal (Abdomen): Inspection/Auscultation: normal bowel sounds; abdomen not distended Percussion/Palpation: abdomen soft and + abdominal mass (Residual palpable hematoma in the left lower quadrant); abdomen nontender Musculoskeletal: Extremities: extremities normal to inspection; no cyanosis and no clubbing Skin: no rashes, warm and dry Neurologic: moves all extremities and awake; no focal motor deficits Psychiatric: A+Ox3, euthymic affect Lymphatic: no lymphedema Results & Data Results & Data ([facility]) Vital Signs (Past 12 Hours) Vital Signs Temp Pulse Pulse Resp BP Pulse Ox 09/10/20 11:47 36.6 C 77 18 99/62 L 95 09/10/20 07:44 36.7 C 94 H 18 137/83 94 09/10/20 07:16 109 H 18 97 09/10/20 04:48 37.1 C 96 H 18 132/73 93 09/10/20 00:56 94 H 18 92 Laboratory Results 09/10/20 09/10/20 09/10/20 Range/Units 11:04 07:35 06:17 WBC (4.8-10.8) K/uL RBC (4.2-5.4) M/uL Hgb (12.0-16.0) g/dL Hct (37-47) % MCV (80-100) fL MCH (25-34) pg MCHC (32-36) g/dL RDW Std Deviation (36.4-46.3) fL RDW Coeff of Erin (11.5-14.5) % Plt Count (130-400) K/uL MPV (7.4-10.4) fL Immature Gran % (Auto) % Neut % (Auto) % Lymph % (Auto) % Sutton % (Auto) % Eos % (Auto) % Baso % (Auto) % Neut # (Auto) (1.4-6.5) K/uL Lymph # (Auto) (1.2-3.4) K/uL Sutton # (Auto) (0.11-0.59) K/uL Eos # (Auto) (0-0.5) K/uL Baso # (Auto) (0-0.2) K/uL Immature Gran # (Auto) (0.00-0.02) K/uL Sodium 137 (136-145) mmol/L Potassium 3.7 (3.5-5.1) mmol/L Chloride 105 (98-107) mmol/L Carbon Dioxide 29 (21-32) mmol/L Anion Gap 3.0 (3-11) BUN 51 H (7-18) mg/dl Creatinine 1.48 H (0.6-1.2) mg/dl Est Cr Clr Drug Dosing 36.6 ml/min Est GFR ( Amer) 38.1 ml/min Est GFR (Non-Af Amer) 32.9 ml/min BUN/Creatinine Ratio 34.3 H (10-20) Glucose 84 (70-99) mg/dl POC Glucose 181 H 104 H (70-99) mg/dl Calcium 8.3 L (8.5-10.1) mg/dl Magnesium 2.1 (1.8-2.4) mg/dl 09/10/20 09/10/20 09/09/20 Range/Units 06:17 04:06 23:50 WBC 7.55 (4.8-10.8) K/uL RBC 3.16 L (4.2-5.4) M/uL Hgb 9.0 L (12.0-16.0) g/dL Hct 29.5 L (37-47) % MCV 93.4 (80-100) fL MCH 28.5 (25-34) pg MCHC 30.5 L (32-36) g/dL RDW Std Deviation 53.8 H (36.4-46.3) fL RDW Coeff of Erin 15.8 H (11.5-14.5) % Plt Count 277 (130-400) K/uL MPV 9.0 (7.4-10.4) fL Immature Gran % (Auto) 0.4 % Neut % (Auto) 67.1 % Lymph % (Auto) 19.5 % Sutton % (Auto) 9.3 % Eos % (Auto) 3.6 % Baso % (Auto) 0.1 % Neut # (Auto) 5.07 (1.4-6.5) K/uL Lymph # (Auto) 1.47 (1.2-3.4) K/uL Sutton # (Auto) 0.70 H (0.11-0.59) K/uL Eos # (Auto) 0.27 (0-0.5) K/uL Baso # (Auto) 0.01 (0-0.2) K/uL Immature Gran # (Auto) 0.03 H (0.00-0.02) K/uL Sodium (136-145) mmol/L Potassium (3.5-5.1) mmol/L Chloride (98-107) mmol/L Carbon Dioxide (21-32) mmol/L Anion Gap (3-11) BUN (7-18) mg/dl Creatinine (0.6-1.2) mg/dl Est Cr Clr Drug Dosing ml/min Est GFR ( Amer) ml/min Est GFR (Non-Af Amer) ml/min BUN/Creatinine Ratio (10-20) Glucose (70-99) mg/dl POC Glucose 98 108 H (70-99) mg/dl Calcium (8.5-10.1) mg/dl Magnesium (1.8-2.4) mg/dl 09/09/20 09/09/20 09/09/20 Range/Units 20:33 16:14 15:35 WBC (4.8-10.8) K/uL RBC (4.2-5.4) M/uL Hgb (12.0-16.0) g/dL Hct (37-47) % MCV (80-100) fL MCH (25-34) pg MCHC (32-36) g/dL RDW Std Deviation (36.4-46.3) fL RDW Coeff of Erin (11.5-14.5) % Plt Count (130-400) K/uL MPV (7.4-10.4) fL Immature Gran % (Auto) % Neut % (Auto) % Lymph % (Auto) % Sutton % (Auto) % Eos % (Auto) % Baso % (Auto) % Neut # (Auto) (1.4-6.5) K/uL Lymph # (Auto) (1.2-3.4) K/uL Sutton # (Auto) (0.11-0.59) K/uL Eos # (Auto) (0-0.5) K/uL Baso # (Auto) (0-0.2) K/uL Immature Gran # (Auto) (0.00-0.02) K/uL Sodium (136-145) mmol/L Potassium (3.5-5.1) mmol/L Chloride (98-107) mmol/L Carbon Dioxide (21-32) mmol/L Anion Gap (3-11) BUN (7-18) mg/dl Creatinine (0.6-1.2) mg/dl Est Cr Clr Drug Dosing ml/min Est GFR ( Amer) ml/min Est GFR (Non-Af Amer) ml/min BUN/Creatinine Ratio (10-20) Glucose (70-99) mg/dl POC Glucose 132 H 103 H 104 H (70-99) mg/dl Calcium (8.5-10.1) mg/dl Magnesium (1.8-2.4) mg/dl 09/09/20 Range/Units 14:30 WBC (4.8-10.8) K/uL RBC (4.2-5.4) M/uL Hgb (12.0-16.0) g/dL Hct (37-47) % MCV (80-100) fL MCH (25-34) pg MCHC (32-36) g/dL RDW Std Deviation (36.4-46.3) fL RDW Coeff of Erin (11.5-14.5) % Plt Count (130-400) K/uL MPV (7.4-10.4) fL Immature Gran % (Auto) % Neut % (Auto) % Lymph % (Auto) % Sutton % (Auto) % Eos % (Auto) % Baso % (Auto) % Neut # (Auto) (1.4-6.5) K/uL Lymph # (Auto) (1.2-3.4) K/uL Sutton # (Auto) (0.11-0.59) K/uL Eos # (Auto) (0-0.5) K/uL Baso # (Auto) (0-0.2) K/uL Immature Gran # (Auto) (0.00-0.02) K/uL Sodium (136-145) mmol/L Potassium (3.5-5.1) mmol/L Chloride (98-107) mmol/L Carbon Dioxide (21-32) mmol/L Anion Gap (3-11) BUN (7-18) mg/dl Creatinine (0.6-1.2) mg/dl Est Cr Clr Drug Dosing ml/min Est GFR ( Amer) ml/min Est GFR (Non-Af Amer) ml/min BUN/Creatinine Ratio (10-20) Glucose (70-99) mg/dl POC Glucose 78 (70-99) mg/dl Calcium (8.5-10.1) mg/dl Magnesium (1.8-2.4) mg/dl PG Care Time/CCT Total # of Minutes Spent Total Time Spent with Patient: Total time spent is greater than 50% in coordination of care (as documented) at patient's floor/unit and/or counseling patient: Coding Level of Care Code 63565 Subseq Hosp Care Lvl 3 Diagnoses Decubitus skin ulcer L89.220 Laterality: left Pressure injury location: hip Pressure injury stage: unstageable CHF (congestive heart failure) I50.9 Heart failure chronicity: unspecified Heart failure type: unspecified Atrial fibrillation I48.91 Diabetes mellitus, type 2 E11.9 Anemia D64.9 CKD (chronic kidney disease) N18.9 Chronic kidney disease stage: unspecified stage Hypertension I10 Asthma J45.909 Anxiety F41.9 DVT prophylaxis Z29.9 (1) Decubitus skin ulcer Laterality: left Pressure injury location: hip Pressure injury stage: unstageable Qualified Code(s): L89.220 - Pressure ulcer of left hip, unstageable (2) CHF (congestive heart failure) Heart failure chronicity: unspecified Heart failure type: unspecified Qu alified Code(s): I50.9 - Heart failure, unspecified (3) CKD (chronic kidney disease) Chronic kidney disease stage: unspecified stage Qualified Code(s): N18.9 - Chronic kidney disease, unspecified
[2020-09-10] MEDS ORDERED: POTASSIUM CHLORIDE 10 MEQ TABCR PO STA (12:31)
[2020-09-10] MEDS: DAPTOmycin 300 MG in SYRINGE 0 ML IV SCH (16:54)
[2020-09-10] MEDS: DIGOXIN 0.125 MG TAB PO SCH (16:55)
[2020-09-10] MEDS: GABAPENTIN 300 MG CAP PO SCH (19:22)
[2020-09-10] MEDS: ATORVASTATIN 40 MG TAB PO SCH (19:22)
[2020-09-10] MEDS: CITALOPRAM 40 MG TAB PO SCH (19:22)
[2020-09-11] MEDS: IPRATROPIUM BROMIDE NEB SOLN 0.02% 2.5 ML VIAL NEB SCH ×2 (01:18→07:12)
[2020-09-11] MEDS: LEVALBUTEROL HCL 0.63 MG/3 ML NEB NEB SCH ×2 (01:18→07:12)
[2020-09-11] MEDS: metroNIDAZOLE 500 MG/100 ML BAG IV SCH ×2 (03:30→13:04)
[2020-09-11] MEDS: CEFEPIME 2,000 MG in SYRINGE 0 ML IV SCH (04:40)
[2020-09-11] MEDS: HEPARIN SOD 5,000 UNIT/0.5 ML VIAL SQ SCH ×3 (06:00→22:23)
[2020-09-11 06:48] LABS: Eosinophils # (auto) 0.29 K/uL (0-0.5); Eosinophils % (auto) 4.3 %; Hematocrit (blood only) 29.4 % (37-47); Hemoglobin 9.3 g/dL (12.0-16.0); Immature Granulocytes # (auto) 0.03 K/uL (0.00-0.02); Immature Granulocytes % (auto) 0.4 %; Mean Corpuscular Hemoglobin 28.9 pg (25-34); Mean Corpuscular Hgb Conc 31.6 g/dL (32-36); Mean Corpuscular Volume 91.3 fL (80-100); Mean Platelet Volume 8.7 fL (7.4-10.4); Monocytes # (auto) 0.64 K/uL (0.11-0.59); Monocytes % (auto) 9.6 %; Neutrophils # (auto) 4.71 K/uL (1.4-6.5); Neutrophils % (auto) 70.7 %; Platelet Count 256 K/uL (130-400); RDW Coefficient of Variation 15.6 % (11.5-14.5); RDW Standard Deviation 52.6 fL (36.4-46.3); Red Blood Count 3.22 M/uL (4.2-5.4); White Blood Count 6.67 K/uL (4.8-10.8)
[2020-09-11] MEDS: BUDESONIDE 0.5 MG/2 ML VIAL (PULMICORT) NEB SCH ×2 (07:12→20:51)
[2020-09-11] MEDS: FORMOTEROL 20 MCG/2 ML VIAL NEB SCH ×2 (07:12→20:51)
[2020-09-11 07:24] LABS: BUN Creatinine Ratio 32.3 (10-20); Calcium 8.2 mg/dl (8.5-10.1); Est GFR (African American) 34.9 ml/min; Est GFR (Non-African American) 30.1 ml/min; Potassium 3.6 mmol/L (3.5-5.1)
[2020-09-11] MEDS: ONDANSETRON INJ 2 MG/ML 2 ML VIAL IV PRN ×2 (08:02→21:17)
[2020-09-11] MEDS: DOCUSATE SODIUM 100 MG CAP PO SCH (08:04)
[2020-09-11] MEDS: AMIODARONE 200 MG TAB PO SCH ×2 (08:04→22:24)
[2020-09-11] MEDS: guaiFENesin 600 MG TABCR PO SCH ×2 (08:05→22:23)
[2020-09-11] MEDS: PANTOprazole 40 MG TAB PO SCH (08:05)
[2020-09-11] MEDS: METOPROLOL SUCC 50MG EXT REL TAB PO SCH ×2 (08:05→22:25)
[2020-09-11] MEDS: FUROSEMIDE 40 MG TAB PO SCH (08:05)
[2020-09-11] MEDS: SENNA 8.6 MG TAB PO SCH (08:06)
[2020-09-11] MEDS ORDERED: POTASSIUM CHLORIDE CRTAB 20 MEQ TABCR PO STA (09:06)
[2020-09-11] MEDS: INSULIN ASPART 100 UNITS/ML 3 ML PEN SC SCH ×4 (09:28→23:39)
[2020-09-11] MEDS ORDERED: IPRATROPIUM BROMIDE NEB SOLN 0.02% 2.5 ML VIAL NEB PRN (09:58)
[2020-09-11] MEDS ORDERED: LEVALBUTEROL HCL 0.63 MG/3 ML NEB NEB PRN (09:59)
[2020-09-11] MEDS: ACETAMINOPHEN 325 MG TAB PO PRN (11:01)
--- NOTE | 2020-09-11 13:49 | Hospitalist Progress Note ---
Date of Service September 11, 2020 Assessment & Plan (1) Decubitus skin ulcer: Plan: Decubitus skin ulcer: Presented from [facility] due to concerns regarding worsening open wounds of left buttocks with concern for need for IV antibiotics and debridement Debridement of sacral wound was delayed due to acute CHF as below on 09/08 Now status post debridement in the OR on 09/09-appreciate surgery management Wound culture now growing anaerobic gram neg rods-Bacteroides uniformis Blood cultures no growth to date Previously grew MSSA in bloodstream and from right chest wound Initially treated with IV cefepime for a history of Pseudomonas and daptomycin in case of MRSA-discontinue both today -Having significant nausea since starting Flagyl-discontinue Flagyl -Start Invanz to cover for Bacteroides-pharmacy states that clindamycin would not work well and she cannot use Zosyn as she is allergic to penicillin -follow all final wound cxs 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 once daily Her weight is down from previous Overall, she looks much improved since I saw her 6 weeks ago when she was 19 kg heavier Repeat chest x-ray on 09/09 with very small bilateral pleural effusions and pulmonary vascular congestion Follow daily weights, strict I's and O's, low-sodium diet (3) Nausea: Plan: Started having significant nausea after starting metronidazole -Stop metronidazole -Cannot use Zofran due to QT prolongation Give low doses of Compazine as needed KUB obstruction Hopefully nausea will improve as metronidazole is metabolized (4) Atrial fibrillation: Plan: Paroxysmal atrial fibrillation Remains in A. fib for a few days now but rates are controlled Continue amiodarone 200 mg twice daily for now-if remains in atrial fibrillation, could consider discontinuing amiodarone-in the past however, she has converted back to sinus Continue digoxin 0.125 mg daily Continue to monitor on telemetry Replace potassium and magnesium to keep greater than 4.0 and 2.0 respectively- give KCl 10 meq po x 1 today Continue Toprol-XL 50 mg p.o. twice daily Is not on anticoagulation due to to recent previous history of severe acute blood loss anemia x 2 occasions (5) Diabetes mellitus, type 2: Plan: With hypoglycemia on 09/09 which is now improved Consult pharmacy for glycemic control Continue insulin management On Lantus 20 units daily at home Hemoglobin A1c here is only 5.4%-we will likely need a decrease in home dosing of insulin upon discharge (6) Anemia: Plan: Hemoglobin is stable at 9.0 for many days Had recent severe bleeding episodes requiring transfusions 1 month ago Follow CBC Avoiding anticoagulation (7) CKD (chronic kidney disease): Plan: Chronic kidney disease stage 4 Creatinine baseline 1.95-2.26 Creatinine today is stable at 1.5 -Avoid nephrotoxins -renally dose meds when appropriate -follow BMP (8) Hypertension: Plan: Blood pressures are controlled Continue Toprol-XL (9) Asthma: Plan: No acute issues DuoNebs every 2 hours as needed Continue formoterol nebs twice daily, continue budesonide twice daily (10) Anxiety: Plan: No acute issues Continue citalopram Is on lorazepam as needed at home-not receiving here (11) DVT prophylaxis: Plan: Heparin SQ Disposition-continued stay on PCU, eventually will need to go back to rehab PT/OT consults placed Admission and Anticipated Discharge Date Admission Date: September 06, 2020 Subjective Patient reports having significant nausea since starting on metronidazole yesterday. She did vomit up a slight amount. Since then, has been able to tolerate some chicken broth today. Denies chest pain or shortness of breath, no abdominal pain. She is having some soreness on her bottom. She only took 1 dose of oxycodone yesterday afternoon but none since then. Telemetry with atrial fibrillation with rates in the 80s to 90s. I discussed her care with her pharmacist with regards to traces of antibiotics. Review of Systems Review of Systems: All systems reviewed & are unremarkable except as noted in HPI & below Physical Exam Constitutional: WD/WN, vitals as above + morbidly obese Eyes: + anicteric sclerae Neck: trachea midline, no thyromegaly Respiratory: + abnormal respiratory effort (Has intermittent periods of tachypnea at rest) and no cough Auscultation: + diminished lung sounds (At bases bilaterally); no crackles and no wheezes Cardiovascular: Rate/Rhythm: regular rate and + irregularly irregular Heart Sounds: no murmur Extremities: + edema (trace pitting edema of the legs bilaterally) Gastrointestinal (Abdomen): Inspection/Auscultation: normal bowel sounds; abdomen not distended Percussion/Palpation: abdomen soft and + abdominal mass (Residual palpable hematoma in the left lower quadrant); abdomen nontender Musculoskeletal: Extremities: extremities normal to inspection; no cyanosis and no clubbing Skin: no rashes, warm and dry Neurologic: moves all extremities and awake; no focal motor deficits Psychiatric: A+Ox3, euthymic affect Lymphatic: no lymphedema Results & Data Results & Data ([facility]) Vital Signs (Past 12 Hours) Vital Signs Temp Pulse Pulse Resp BP BP Pulse Ox 09/11/20 11:41 36.6 C 84 16 119/69 97 09/11/20 08:19 36.6 C 85 18 100/64 98 09/11/20 07:41 79 09/11/20 07:13 91 H 18 98 09/11/20 05:06 36.5 C 84 22 106/57 L 97 Laboratory Results 09/11/20 09/11/20 09/11/20 Range/Units 23:29 16:08 11:20 WBC (4.8-10.8) K/uL RBC (4.2-5.4) M/uL Hgb (12.0-16.0) g/dL Hct (37-47) % MCV (80-100) fL MCH (25-34) pg MCHC (32-36) g/dL RDW Std Deviation (36.4-46.3) fL RDW Coeff of Erin (11.5-14.5) % Plt Count (130-400) K/uL MPV (7.4-10.4) fL Immature Gran % (Auto) % Neut % (Auto) % Lymph % (Auto) % [place] % (Auto) % Eos % (Auto) % Baso % (Auto) % Neut # (Auto) (1.4-6.5) K/uL Lymph # (Auto) (1.2-3.4) K/uL [facility] # (Auto) (0.11-0.59) K/uL Eos # (Auto) (0-0.5) K/uL Baso # (Auto) (0-0.2) K/uL Immature Gran # (Auto) (0.00-0.02) K/uL Sodium (136-145) mmol/L Potassium (3.5-5.1) mmol/L Chloride (98-107) mmol/L Carbon Dioxide (21-32) mmol/L Anion Gap (3-11) BUN (7-18) mg/dl Creatinine (0.6-1.2) mg/dl Est Cr Clr Drug Dosing ml/min Est GFR ( Amer) ml/min Est GFR (Non-Af Amer) ml/min BUN/Creatinine Ratio (10-20) Glucose (70-99) mg/dl POC Glucose 131 H 195 H 131 H (70-99) mg/dl Calcium (8.5-10.1) mg/dl Magnesium (1.8-2.4) mg/dl 09/11/20 09/11/20 09/11/20 Range/Units 07:03 06:23 06:23 WBC 6.67 (4.8-10.8) K/uL RBC 3.22 L (4.2-5.4) M/uL Hgb 9.3 L (12.0-16.0) g/dL Hct 29.4 L (37-47) % MCV 91.3 (80-100) fL MCH 28.9 (25-34) pg MCHC 31.6 L (32-36) g/dL RDW Std Deviation 52.6 H (36.4-46.3) fL RDW Coeff of Erin 15.6 H (11.5-14.5) % Plt Count 256 (130-400) K/uL MPV 8.7 (7.4-10.4) fL Immature Gran % (Auto) 0.4 % Neut % (Auto) 70.7 % Lymph % (Auto) 15.0 % [facility] % (Auto) 9.6 % Eos % (Auto) 4.3 % Baso % (Auto) 0.0 % Neut # (Auto) 4.71 (1.4-6.5) K/uL Lymph # (Auto) 1.00 L (1.2-3.4) K/uL [facility] # (Auto) 0.64 H (0.11-0.59) K/uL Eos # (Auto) 0.29 (0-0.5) K/uL Baso # (Auto) 0.00 (0-0.2) K/uL Immature Gran # (Auto) 0.03 H (0.00-0.02) K/uL Sodium 137 (136-145) mmol/L Potassium 3.6 (3.5-5.1) mmol/L Chloride 106 (98-107) mmol/L Carbon Dioxide 29 (21-32) mmol/L Anion Gap 2.0 L (3-11) BUN 51 H (7-18) mg/dl Creatinine 1.59 H (0.6-1.2) mg/dl Est Cr Clr Drug Dosing 34.0 ml/min Est GFR ( Amer) 34.9 ml/min Est GFR (Non-Af Amer) 30.1 ml/min BUN/Creatinine Ratio 32.3 H (10-20) Glucose 111 H (70-99) mg/dl POC Glucose 119 H (70-99) mg/dl Calcium 8.2 L (8.5-10.1) mg/dl Magnesium 2.0 (1.8-2.4) mg/dl Diagnostic Findings KUB image personally reviewed by me and agree with the following report: KUB X-Ray 09/11/20 17:07 KUB HISTORY: Acute nausea with vomiting vomiting, r/o obstruction COMPARISON: CT abdomen and pelvis 07/31/2020 FINDINGS: Cardiomegaly. Trace pleural effusions. Cholecystectomy clips. Surgical clips of the epigastric abdomen. Lumbar spinal fusion hardware. Degenerative changes of the spine, pelvis and hips. No pneumatosis or pneumoperitoneum. Moderate fecal retention. Mild gaseous distention of the colon with nonobstructive bowel gas pattern. The renal shadows are partially obscured by bowel gas. Left nephrolithiasis redemonstrated. No ureteral calculi identified. Pelvic basin calcifications are suggestive of phleboliths. IMPRESSION: 1. Nonobstructive bowel gas pattern. 2. Moderate fecal retention. 3. Left nephrolithiasis. 4. Cardiomegaly with trace pleural effusions. ACT 112: Negative or not required by law. The above report was generated using voice recognition software. It may contain grammatical, syntax or spelling errors. Electronically signed by: Uzair Martin M.D. 09/11/2020 5:32 PM PG Care Time/CCT Total # of Minutes Spent Total Time Spent with Patient: Total time spent is greater than 50% in coordination of care (as documented) at patient's floor/unit and/or counseling patient: Coding Level of Care Code 45796 Subseq Hosp Care Lvl 3 Diagnoses Decubitus skin ulcer L89.220 Laterality: left Pressure injury location: hip Pressure injury stage: unstageable CHF (congestive heart failure) I50.9 Heart failure chronicity: unspecified Heart failure type: unspecified Atrial fibrillation I48.91 Diabetes mellitus, type 2 E11.9 Anemia D64.9 CKD (chronic kidney disease) N18.9 Chronic kidney disease stage: unspecified stage Hypertension I10 Asthma J45.909 Anxiety F41.9 DVT prophylaxis Z29.9 Nausea R11.0 (1) CHF (congestive heart failure) Heart failure chronicity: unspecified Heart failure type: unspecified Qualified Code(s): I50.9 - Heart failure, unspecified (2) CKD (chronic kidney disease) Chronic kidney disease stage: unspecified stage Qualified Code(s): N18.9 - Chronic kidney disease, unspecified (3) Decubitus skin ulcer Laterality: left Pressure injury location: hip Pressure injury stage: unstageable Qualified Code(s): L89.220 - Pressure ulcer of left hip, unstageable
[2020-09-11] MEDS ORDERED: CLINDAMYCIN 600 MG in DEXTROSE 5% 50 ML IV SCH (14:00)
[2020-09-11] MEDS ORDERED: PROCHLORPERAZINE 5 MG in SYRINGE 4 ML IV ONE ×2 (14:45→17:30)
[2020-09-11] MEDS: ERTAPENEM SODIUM 1,000 MG in SODIUM CHLORIDE 0.9% 50 ML IV SCH (16:13)
[2020-09-11] MEDS: DIGOXIN 0.125 MG TAB PO SCH (17:03)
--- NOTE | 2020-09-11 17:33 | XRay Report ---
KUB HISTORY: Acute nausea with vomiting vomiting, r/o obstruction COMPARISON: CT abdomen and pelvis 07/31/2020 FINDINGS: Cardiomegaly. Trace pleural effusions. Cholecystectomy clips. Surgical clips of the epigast alejandro abdomen. Lumbar spinal fusion hardware. Degenerative changes of the spine, pelvis and hips. No pn eumatosis or pneumoperitoneum. Moderate fecal retention. Mild gaseous distention of the colon with no nobstructive bowel gas pattern. The renal shadows are partially obscured by bowel gas. Left nephrolit hiasis redemonstrated. No ureteral calculi identified. Pelvic basin calcifications are suggestive of phleboliths. IMPRESSION: 1. Nonobstructive bowel gas pattern. 2. Moderate fecal retention. 3. Left nephrolithiasis. 4. Cardiomegaly with trace pleural effusions. ACT 112: Negative or not required by law. The above report was generated using voice recognition software. It may contain grammatical, syntax o r spelling errors. Electronically signed by: Uzair Martin M.D. 09/11/2020 5:32 PM
[2020-09-11] MEDS ORDERED: Nursing to Pharmacy Communication SCH (21:00)
[2020-09-11] MEDS: GABAPENTIN 300 MG CAP PO SCH (22:23)
[2020-09-11] MEDS: ATORVASTATIN 40 MG TAB PO SCH (22:24)
[2020-09-11] MEDS: CITALOPRAM 40 MG TAB PO SCH (22:24)
[2020-09-12] MEDS: ONDANSETRON INJ 2 MG/ML 2 ML VIAL IV PRN (03:18)
[2020-09-12] MEDS ORDERED: COUGH DROP (SUGAR FREE) LOZ 24 LOZ/1 BOX BUCCAL ONE ×2 (04:14→11:29)
[2020-09-12] MEDS: INSULIN ASPART 100 UNITS/ML 3 ML PEN SC SCH ×3 (05:56→18:38)
[2020-09-12] MEDS: HEPARIN SOD 5,000 UNIT/0.5 ML VIAL SQ SCH ×3 (05:56→21:08)
[2020-09-12] MEDS: BUDESONIDE 0.5 MG/2 ML VIAL (PULMICORT) NEB SCH ×2 (06:30→20:10)
[2020-09-12] MEDS: FORMOTEROL 20 MCG/2 ML VIAL NEB SCH ×2 (06:31→20:11)
[2020-09-12 07:25] LABS: BUN Creatinine Ratio 31.8 (10-20); Calcium 8.5 mg/dl (8.5-10.1); Creatinine Clr Calc Pharmacy 36.6 ml/min; Est GFR (Non-African American) 33.7 ml/min; Potassium 3.6 mmol/L (3.5-5.1)
--- NOTE | 2020-09-12 07:33 | XRay Report ---
XR chest 1V portable CLINICAL HISTORY: SOB COMPARISON STUDY: 09/09/2020 FINDINGS: The heart is enlarged. There is aortic tortuosity/ectasia. There is resolving pulmonary vas cular congestion. Basilar opacities while nonspecific are likely atelectatic. IMPRESSION: Cardiomegaly and resolving pulmonary vascular congestion. No evidence of lobar consolidat ion ACT 112: Negative or not required by law. Electronically signed by: Fletcher Fernando M.D. 09/12/2020 7:32 AM
[2020-09-12] MEDS ORDERED: FUROSEMIDE 40 MG in SYRINGE 0 ML IV ONE (08:30)
[2020-09-12] MEDS: POTASSIUM CHLORIDE / WTR 10 MEQ/100 ML PLCT IV SCH ×2 (09:12→11:35)
[2020-09-12] MEDS: METOPROLOL SUCC 50MG EXT REL TAB PO SCH ×2 (09:13→20:33)
[2020-09-12] MEDS: DOCUSATE SODIUM 100 MG CAP PO SCH (09:13)
[2020-09-12] MEDS: AMIODARONE 200 MG TAB PO SCH ×2 (09:13→20:33)
[2020-09-12] MEDS: SENNA 8.6 MG TAB PO SCH (09:14)
[2020-09-12] MEDS: PANTOprazole 40 MG TAB PO SCH (09:14)
[2020-09-12] MEDS: PROCHLORPERAZINE 10 MG in SYRINGE 8 ML IV PRN ×2 (11:35→18:39)
--- NOTE | 2020-09-12 14:20 | Hospitalist Progress Note ---
Date of Service September 12, 2020 Assessment & Plan (1) Decubitus skin ulcer: Plan: Decubitus skin ulcer: Presented from [facility] due to concerns regarding worsening open wounds of left buttocks with concern for need for IV antibiotics and debridement Debridement of sacral wound was delayed due to acute CHF as below on 09/08 Now status post debridement in the OR on 09/09-appreciate surgery management Wound culture now growing anaerobic gram neg rods-Bacteroides uniformis Blood cultures no growth to date Previously grew MSSA in bloodstream and from right chest wound Initially treated with IV cefepime for a history of Pseudomonas and daptomycin in case of MRSA-discontinue both today -Having significant nausea since starting Flagyl-discontinued Flagyl -Started Invanz on 09/11 to cover for Bacteroides-pharmacy states that clindamycin would not work well and she cannot use Zosyn as she is allergic to penicillin -follow all final wound cxs 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, 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 -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 in place -Continue on oxycodone prn pain control in addition to tylenol (2) Nausea: Plan: Started having significant nausea after starting metronidazole on 09/10-stopped Flagyl on 09/11 Nausea persists today and not improving much with compazine Also now with mild headache -Cannot use Zofran due to QT prolongation Increased Compazine to 10mg IV q6 as needed KUB no obstruction on 09/11 Hopefully nausea will improve as metronidazole is metabolized -check CT abd/pel without con due to elevated steel roller -check CT head given persistent nausea and headache (3) CHF (congestive heart failure): Plan: With acute on chronic diastolic CHF and right-sided heart failure with flash pulmonary edema on 09/08 requiring IV Lasix and BiPAP Now much improved Is 91 to 94% on room air at rest Continue home Lasix 40 mg p.o. once daily-today give one dose IV lasix 40mg due to increased rhonchi Her weight is down from previous Overall, she looks much improved since I saw her 6 weeks ago when she was 19 kg heavier Repeat chest x-ray on 09/09 with very small bilateral pleural effusions and pulmonary vascular congestion Follow daily weights, strict I's and O's, low-sodium diet (4) Atrial fibrillation: Plan: Paroxysmal atrial fibrillation Remains in A. fib for a few days now but rates are controlled Continue amiodarone 200 mg twice daily for now-if remains in atrial fibrillation, could consider discontinuing amiodarone-in the past however, she has converted back to sinus Continue digoxin 0.125 mg daily-repeat dig level performed 09/12 for nausea and is 0.8 Continue to monitor on telemetry Replace potassium and magnesium to keep greater than 4.0 and 2.0 respectively Continue Toprol-XL 50 mg p.o. twice daily Is not on anticoagulation due to to recent previous history of severe acute blood loss anemia x 2 occasions (5) Diabetes mellitus, type 2: Plan: With hypoglycemia on 09/09 which is now improved Consult pharmacy for glycemic control Continue insulin management On Lantus 20 units daily at home Hemoglobin A1c here is only 5.4%-we will likely need a decrease in home dosing of insulin upon discharge (6) Anemia: Plan: Hemoglobin is stable at 9.0 for many days Had recent severe bleeding episodes requiring transfusions 1 month ago Follow CBC Avoiding anticoagulation (7) CKD (chronic kidney disease): Plan: Chronic kidney disease stage 4 Creatinine baseline 1.95-2.26 Creatinine today is stable at 1.45 -Avoid nephrotoxins -renally dose meds when appropriate -follow BMP (8) Hypertension: Plan: Blood pressures are controlled Continue Toprol-XL (9) Asthma: Plan: No acute issues DuoNebs every 2 hours as needed Continue formoterol nebs twice daily, continue budesonide twice daily (10) Anxiety: Plan: No acute issues Continue citalopram Is on lorazepam as needed at home-not receiving here-will order prn as maybe her nausea is related to withdrawal? (11) DVT prophylaxis: Plan: Heparin SQ Disposition-continued stay on PCU, eventually will need to go back to rehab PT/OT consults placed Admission and Anticipated Discharge Date Admission Date: September 06, 2020 Subjective Still c/o nausea today and dry heaves. Feels she is coughing up "some junk." The compazine 10mg dose does help. No abd pain unless palpated. Just overall not feeling well. No CP or SOB. Is moving her bowels Tele with Afib, rates in 90s Review of Systems Review of Systems: All systems reviewed & are unremarkable except as noted in HPI & below Physical Exam Constitutional: WD/WN, vitals as above + morbidly obese Eyes: + anicteric sclerae Neck: trachea midline, no thyromegaly Respiratory: + abnormal respiratory effort (Has intermittent periods of tachypnea at rest) and no cough Auscultation: + diminished lung sounds (At bases bilaterally); no crackles and no wheezes Cardiovascular: Rate/Rhythm: regular rate and + irregularly irregular Heart Sounds: no murmur Extremities: + edema (trace pitting edema of the legs bilaterally) Gastrointestinal (Abdomen): Inspection/Auscultation: normal bowel sounds; abdomen not distended Percussion/Palpation: + abdomen tender (mild in mid abdomen w/o guarding), abdomen soft and + abdominal mass (Residual palpable hematoma in the left lower quadrant) Musculoskeletal: Extremities: extremities normal to inspection; no cyanosis and no clubbing Skin: no rashes, warm and dry Neurologic: moves all extremities and awake; no focal motor deficits Psychiatric: Orientation: alert and oriented x 3 Affect: + flat affect Lymphatic: no lymphedema Results & Data Results & Data ([facility]) Vital Signs (Past 12 Hours) Vital Signs Temp Pulse Pulse Pulse Resp BP BP 09/12/20 12:02 36.6 C 96 H 20 141/81 H 09/12/20 07:55 36.7 C 106 H 20 139/74 09/12/20 07:30 99 H 09/12/20 06:20 101 H 18 09/12/20 04:06 37 C 98 H 22 128/75 Pulse Ox 09/12/20 12:02 92 09/12/20 07:55 94 09/12/20 07:30 09/12/20 06:20 92 09/12/20 04:06 96 Laboratory Results 09/12/20 09/12/20 09/12/20 Range/Units 18:35 18:30 12:21 Sodium Pending (136-145) mmol/L Potassium Pending (3.5-5.1) mmol/L Chloride Pending (98-107) mmol/L Carbon Dioxide Pending (21-32) mmol/L Anion Gap Pending (3-11) BUN Pending (7-18) mg/dl Creatinine Pending (0.6-1.2) mg/dl Est Cr Clr Drug Dosing Pending ml/min Est GFR ( Amer) Pending ml/min Est GFR (Non-Af Amer) Pending ml/min BUN/Creatinine Ratio Pending (10-20) Glucose Pending (70-99) mg/dl POC Glucose 132 H 133 H (70-99) mg/dl Calcium Pending (8.5-10.1) mg/dl Magnesium (1.8-2.4) mg/dl Total Bilirubin Pending AST Pending ALT Pending Alkaline Phosphatase Pending Total Protein Pending Albumin Pending Globulin Pending Albumin/Globulin Ratio Pending Digoxin (0.8-2.0) ng/ml 09/12/20 09/12/20 09/12/20 Range/Units 08:05 06:12 05:33 Sodium 138 (136-145) mmol/L Potassium 3.6 (3.5-5.1) mmol/L Chloride 107 (98-107) mmol/L Carbon Dioxide 26 (21-32) mmol/L Anion Gap 5.0 (3-11) BUN 46 H (7-18) mg/dl Creatinine 1.45 H (0.6-1.2) mg/dl Est Cr Clr Drug Dosing 36.6 ml/min Est GFR ( Amer) 39.0 ml/min Est GFR (Non-Af Amer) 33.7 ml/min BUN/Creatinine Ratio 31.8 H (10-20) Glucose 128 H (70-99) mg/dl POC Glucose 133 H (70-99) mg/dl Calcium 8.5 (8.5-10.1) mg/dl Magnesium 2.0 (1.8-2.4) mg/dl Total Bilirubin AST ALT Alkaline Phosphatase Total Protein Albumin Globulin Albumin/Globulin Ratio Digoxin 0.8 (0.8-2.0) ng/ml 09/11/20 Range/Units 23:29 Sodium (136-145) mmol/L Potassium (3.5-5.1) mmol/L Chloride (98-107) mmol/L Carbon Dioxide (21-32) mmol/L Anion Gap (3-11) BUN (7-18) mg/dl Creatinine (0.6-1.2) mg/dl Est Cr Clr Drug Dosing ml/min Est GFR ( Amer) ml/min Est GFR (Non-Af Amer) ml/min BUN/Creatinine Ratio (10-20) Glucose (70-99) mg/dl POC Glucose 131 H (70-99) mg/dl Calcium (8.5-10.1) mg/dl Magnesium (1.8-2.4) mg/dl Total Bilirubin AST ALT Alkaline Phosphatase Total Protein Albumin Globulin Albumin/Globulin Ratio Digoxin (0.8-2.0) ng/ml PG Care Time/CCT Total # of Minutes Spent Total Time Spent with Patient: Total time spent is greater than 50% in coordination of care (as documented) at patient's floor/unit and/or counseling patient: Coding Level of Care Code 50327 Subseq Hosp Care Lvl 3 Diagnoses Decubitus skin ulcer L89. Laterality: left Pressure injury location: hip Pressure injury stage: unstageable CHF (congestive heart failure) I50.9 Heart failure chronicity: unspecified Heart failure type: unspecified Nausea R11.0 Atrial fibrillation I48.91 Diabetes mellitus, type 2 E11.9 Anemia D64.9 CKD (chronic kidney disease) N18.9 Chronic kidney disease stage: unspecified stage Hypertension I10 Asthma J45.909 Anxiety F41.9 DVT prophylaxis Z29.9 (1) CHF (congestive heart failure) Heart failure chronicity: unspecified Heart failure type: unspecified Qualified Code(s): I50.9 - Heart failure, unspecified (2) CKD (chronic kidney disease) Chronic kidney disease stage: unspecified stage Qualified Code(s): N18.9 - Chronic kidney disease, unspecified (3) Decubitus skin ulcer Laterality: left Pressure injury location: hip Pressure injury stage: unstageable Qualified Code(s): L89.220 - Pressure ulcer of left hip, unstageable
[2020-09-12] MEDS: DIGOXIN 0.125 MG TAB PO SCH (15:16)
[2020-09-12] MEDS: ERTAPENEM SODIUM 1,000 MG in SODIUM CHLORIDE 0.9% 50 ML IV SCH (15:16)
--- NOTE | 2020-09-12 15:27 | Pharmacy Report ---
Pharmacy Glycemic Short Note 2 - Date of Service September 12, 2020 - Glycemic Short BSG Results (Last 24 hours): 09/11/20 09/11/20 09/12/20 16:08 23:29 05:33 Glucose POC Glucose 195 H 131 H 133 H 09/12/20 09/12/20 06:12 12:21 Glucose 128 H POC Glucose 133 H OUTPATIENT ANTIDIABETIC REGIMEN: * Lantus 20 units daily ASSESSMENT: * Ms Mcbride is an 80 y/o F with a PMH of IDDM who presents with a decubitus ulcer debridement. * She received only 2 units of Novolog yesterday. Minimal oral intake. * Fasting BSG is trending upward. Will enter a Lantus dose per scale order to only be given for BSG of 140 mg/dL or more. PLAN FOR INPATIENT GLYCEMIC CONTROL: * Basal insulin * Lantus 0-5 units SQ qam (5 units if BSG is 140 mg/dL or greater) * Bolus insulin * NovoLog per scale ACHS or Q6hrs while NPO * Goal Range: Low 110 mg/dL - High 140 mg/dL * Correction Factor: 30 mg/dL/unit * Nutritional / Prandial insulin per carb ratio of 1 unit per 10 grams CHO consumed PLAN FOR DISCHARGE: * A1c of 5.4% is below goal * Assess patient for hypoglycemia at home * Empirically decrease basal insulin (patient has required little to no basal insulin so far this admission)
[2020-09-12] MEDS ORDERED: LORazepam 0.5 MG TAB PO PRN (19:02)
[2020-09-12 19:04] LABS: Albumin Level 2.1 gm/dl (3.4-5.0); BUN Creatinine Ratio 30.8 (10-20); Calcium 8.1 mg/dl (8.5-10.1); Creatinine Clr Calc Pharmacy 39.4 ml/min; Est GFR (African American) 41.8 ml/min; Est GFR (Non-African American) 36.1 ml/min; Potassium 3.6 mmol/L (3.5-5.1)
[2020-09-12 19:07] LABS: Albumin Globulin Ratio 0.5 (0.9-2); Bilirubin,Total 0.4 mg/dl (0.2-1); Globulin 4.1 gm/dl (2.5-4.0); Total Protein 6.2 gm/dl (6.4-8.2)
--- NOTE | 2020-09-12 20:18 | CT Scan Report ---
HEAD CT NONCONTRAST CT DOSE: 3612.58 mGy.cm HISTORY: persistent vomiting TECHNIQUE: Multiaxial CT images of the head were performed without the use of intravenous contrast. A utomated exposure control was utilized for this study. A dose lowering technique was utilized adheri ng to the principles of ALARA. Comparison: Head CT 08/20/2018. Findings: Mild mucosal thickening within the right sphenoid sinus. The mastoid air cells are clear. T he calvarium and skull base are intact. There is no mass, hematoma, midline shift, acute infarct. Whi te matter hypodensity is nonspecific but suggestive of microvascular ischemic change. The ventricles and sulci demonstrate mild age-related involutional changes. Impression: No acute intracranial abnormality. Atrophy and microvascular ischemic changes. ACT 112: Negative or not required by law. Electronically signed by: Ariel Carrillo M.D. 09/12/2020 8:16 PM
--- NOTE | 2020-09-12 20:27 | CT Scan Report ---
ABDOMEN AND PELVIS CT WITHOUT CONTRAST CT DOSE: HISTORY: persistent vomiting TECHNIQUE: Multiaxial CT images of the abdomen and pelvis were performed without contrast. A dose lo wering technique was utilized adhering to the principles of ALARA. COMPARISON STUDY: Abdomen and pelvis CT 07/31/2020. FINDINGS: Bibasilar densities favor subsegmental atelectasis. Small right pleural effusion, unchanged . 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 This is only partially image d on this study. This is similar to the prior examination. No pneumoperitoneum. No pneumatosis. Lumba r spinal fusion hardware is again noted. No suspicious lytic are blastic osseous lesions. Subcutaneou s edema within the visualized right arm, unchanged. Subcutaneous calcification within the left inferi or gluteal region. This is likely chronic. Scattered small hypodense foci within the right lateral ab dominal wall which may represent prior medication injection or small subcutaneous hematomas. Decrease in size in the left lower quadrant subcutaneous density which measures 19 x 4 cm. This could also be due to prior medication injection. Multiple surgical clips at the gastroesophageal junction. Small f at-containing supraumbilical hernia. The bladder is decompressed by a Hess catheter. The uterus is s urgically absent. Moderate well-formed stool within the rectum. Mild bladder wall thickening and [place] fat stranding remains unchanged. This could represent a chronic cystitis. Suboptimal evaluation for bowel pathology due to the lack of intravenous and oral contrast. However, there is no definite b owel wall thickening or obstruction. Moderate to large amount well-formed stool within the rectum. Th e unenhanced liver, spleen, adrenal glands, and pancreas unremarkable. Bilateral nephrolithiasis. No ureteral stones. No hydronephrosis. No retroperitoneal lymphadenopathy or hematoma. Normal caliber ab dominal aorta. IMPRESSION: 1. No definite bowel wall thickening or obstruction. 2. Trace right pleural effusion, unchanged. 3. Bilateral nephrolithiasis. No ureteral stones. No hydronephrosis. 4. Moderate to large amount well-formed stool within the rectum. 5. The bladder is decompressed by Hess catheter. Bladder wall thickening and adjacent fat stranding persists. This could represent a chronic cystitis. Recommend correlation with urinalysis. 6. Additional findings as described above. ACT 112: Negative or not required by law. Electronically signed by: Ariel Carrillo M.D. 09/12/2020 8:26 PM
[2020-09-12] MEDS: ATORVASTATIN 40 MG TAB PO SCH (20:31)
[2020-09-12] MEDS: GABAPENTIN 300 MG CAP PO SCH (20:33)
[2020-09-12] MEDS: CITALOPRAM 40 MG TAB PO SCH (20:34)
[2020-09-12] MEDS ORDERED: PROMETHAZINE HCL 12.5 MG in SODIUM CHLORIDE 0.9% 50 ML IV STA (22:39)
[2020-09-13] MEDS: INSULIN ASPART 100 UNITS/ML 3 ML PEN SC SCH ×6 (00:13→21:01)
[2020-09-13] MEDS: HEPARIN SOD 5,000 UNIT/0.5 ML VIAL SQ SCH ×3 (05:56→21:01)
[2020-09-13] MEDS: BUDESONIDE 0.5 MG/2 ML VIAL (PULMICORT) NEB SCH (07:34)
[2020-09-13] MEDS: FORMOTEROL 20 MCG/2 ML VIAL NEB SCH (07:34)
[2020-09-13] MEDS: DOCUSATE SODIUM 100 MG CAP PO SCH (08:08)
[2020-09-13] MEDS: PANTOprazole 40 MG TAB PO SCH (08:08)
[2020-09-13] MEDS: SENNA 8.6 MG TAB PO SCH (08:09)
[2020-09-13] MEDS: AMIODARONE 200 MG TAB PO SCH ×2 (08:10→21:03)
[2020-09-13] MEDS: METOPROLOL SUCC 50MG EXT REL TAB PO SCH ×2 (08:10→21:02)
[2020-09-13] MEDS: bisacodyL 10 MG SUPP PR SCH ×2 (08:11→11:07)
[2020-09-13] MEDS: INSULIN GLARGINE SOLOSTAR 100 UNITS/ML 3 ML PEN SC SCH ×2 (08:12→21:03)
[2020-09-13] MEDS: FUROSEMIDE 40 MG TAB PO SCH (10:10)
[2020-09-13 10:17] LABS: Basophils # (auto) 0.01 K/uL (0-0.2); Basophils % (auto) 0.1 %; Eosinophils # (auto) 0.17 K/uL (0-0.5); Eosinophils % (auto) 2.4 %; Hematocrit (blood only) 29.3 % (37-47); Immature Granulocytes # (auto) 0.03 K/uL (0.00-0.02); Immature Granulocytes % (auto) 0.4 %; Lymphocytes # (auto) 0.85 K/uL (1.2-3.4); Lymphocytes % (auto) 12.2 %; Mean Corpuscular Hemoglobin 28.7 pg (25-34); Mean Corpuscular Hgb Conc 30.7 g/dL (32-36); Mean Corpuscular Volume 93.3 fL (80-100); Mean Platelet Volume 8.8 fL (7.4-10.4); Monocytes # (auto) 0.61 K/uL (0.11-0.59); Monocytes % (auto) 8.7 %; Neutrophils # (auto) 5.31 K/uL (1.4-6.5); Neutrophils % (auto) 76.2 %; Platelet Count 300 K/uL (130-400); RDW Coefficient of Variation 15.8 % (11.5-14.5); RDW Standard Deviation 54.1 fL (36.4-46.3); Red Blood Count 3.14 M/uL (4.2-5.4); White Blood Count 6.98 K/uL (4.8-10.8)
[2020-09-13 10:43] LABS: Est GFR (African American) 49.1 ml/min; Est GFR (Non-African American) 42.4 ml/min; Potassium 3.3 mmol/L (3.5-5.1)
[2020-09-13 10:44] LABS: Albumin Globulin Ratio 0.5 (0.9-2); Albumin Level 2.1 gm/dl (3.4-5.0); BUN Creatinine Ratio 30.3 (10-20); Bilirubin,Total 0.4 mg/dl (0.2-1); Creatinine Clr Calc Pharmacy 44.3 ml/min; Globulin 4.1 gm/dl (2.5-4.0); Magnesium 1.8 mg/dl (1.8-2.4); Phosphorus 2.3 mg/dl (2.5-4.9); Total Protein 6.2 gm/dl (6.4-8.2)
[2020-09-13] MEDS ORDERED: POTASSIUM PHOS 3 MMOL/1 ML INFUSION IV STA (12:07)
[2020-09-13] MEDS ORDERED: POTASSIUM PHOSPHATE 15 MMOL in SODIUM CHLORIDE 0.9% 250 ML IV ONE (12:15)
--- NOTE | 2020-09-13 12:28 | Hospitalist Progress Note ---
Date of Service September 13, 2020 Assessment & Plan (1) Decubitus skin ulcer: Plan: Decubitus skin ulcer: Presented from [facility] due to concerns regarding worsening open wounds of left buttocks with concern for need for IV antibiotics and debridement Debridement of sacral wound was delayed due to acute CHF as below on 09/08 Now status post debridement in the OR on 09/09-appreciate surgery management Wound culture now growing anaerobic gram neg rods-Bacteroides uniformis Blood cultures no growth to date Previously grew MSSA in bloodstream and from right chest wound Initially treated with IV cefepime for a history of Pseudomonas and daptomycin in case of MRSA-both have since been discontinued -Having significant nausea since starting Flagyl-discontinued Flagyl and now on Invanz -Started Invanz on 09/11 to cover for Bacteroides-pharmacy states that clindamycin would not work well and she cannot use Zosyn as she is allergic to penicillin 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, psych arnp -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 in place -Continue on oxycodone prn pain control in addition to tylenol (2) Nausea: Plan: Started having significant nausea after starting metronidazole on 09/10-stopped Flagyl on 09/11 Nausea persisted x 2 days and now resolved withdc Flagyl, giving her usual lorazepam (might have had withdrawal from not receiving), and compazine CT abd/pel no obstruction but with rectal fecal impaction-now resolved with multiple BMs 09/13 CT head negative -Cannot use Zofran due to QT prolongation -continue Compazine to 10mg IV q6 as needed -make lorazepam scheduled once daily as this is how she usually takes it advance diet to full liquids (3) CHF (congestive heart failure): Plan: With acute on chronic diastolic CHF and right-sided heart failure with flash pulmonary edema on 09/08 requiring IV Lasix and BiPAP Now much improved Is 98% on room air at rest Continue home Lasix 40 mg p.o. once daily Her weight is down from previous Overall, she looks much improved since I saw her 6 weeks ago when she was 19 kg heavier Repeat chest x-ray on 09/09 with very small bilateral pleural effusions and pulmonary vascular congestion Follow daily weights, strict I's and O's, low-sodium diet (4) Atrial fibrillation: Plan: Paroxysmal atrial fibrillation Remains in A. fib for many days now but rates are controlled Continue amiodarone 200 mg twice daily for now-if remains in atrial fibrillation, could consider discontinuing amiodarone-in the past however, she has converted back to sinus Continue digoxin 0.125 mg daily-repeat dig level performed 09/12 for nausea and is 0.8 Continue to monitor on telemetry Replace potassium and magnesium to keep greater than 4.0 and 2.0 respectively- giving replacement today Continue Toprol-XL 50 mg p.o. twice daily Is not on anticoagulation due to to recent previous history of severe acute blo od loss anemia x 2 occasions (5) Diabetes mellitus, type 2: Plan: With hypoglycemia on 09/09 which is now improved Consult pharmacy for glycemic control Continue insulin management On Lantus 20 units daily at home Hemoglobin A1c here is only 5.4%-we will likely need a decrease in home dosing of insulin upon discharge (6) Anemia: Plan: Hemoglobin is stable at 9.0 for many days Had recent severe bleeding episodes requiring transfusions 1 month ago Follow CBC Avoiding anticoagulation (7) CKD (chronic kidney disease): Plan: Chronic kidney disease stage 4 Creatinine baseline 1.95-2.26 Creatinine today is stable at 1.3 -Avoid nephrotoxins -renally dose meds when appropriate -follow BMP (8) Hypertension: Plan: Blood pressures are controlled Continue Toprol-XL (9) Asthma: Plan: No acute issues DuoNebs every 2 hours as needed Continue formoterol nebs twice daily, continue budesonide twice daily (10) Anxiety: Plan: No acute issues Continue citalopram Is on lorazepam as needed at home-was not receiving here-make scheduled once daily like she usually takes (11) DVT prophylaxis: Plan: Heparin SQ Disposition-continued stay on PCU, eventually will need to go back to rehab, however now pt wants to go home. SHe is finally improving-perhaps discharge over the weekend? PT/OT consults placed Admission and Anticipated Discharge Date Admission Date: September 06, 2020 Subjective Pt feeling MUCH better today with resolution of nausea especially after receiving her lorazepam this AM No abd pain. Has some pain in the bottom after wound vac exchange. No CP or SOB Is moving her bowels quite a bit this AM Tele with Afib rates 80s-100s Review of Systems Review of Systems: All systems reviewed & are unremarkable except as noted in HPI & below Physical Exam Constitutional: WD/WN, vitals as above + morbidly obese Eyes: + anicteric sclerae Neck: trachea midline, no thyromegaly Respiratory: normal respiratory effort; no cough Auscultation: + diminished lung sounds (At bases bilaterally); no crackles and no wheezes Cardiovascular: Rate/Rhythm: regular rate and + irregularly irregular Heart Sounds: no murmur Extremities: + edema (trace pitting edema of the legs bilaterally) Gastrointestinal (Abdomen): Inspection/Auscultation: normal bowel sounds; abdomen not distended Percussion/Palpation: abdomen soft and + abdominal mass (Residual palpable hematoma in the left lower quadrant); abdomen nontender Musculoskeletal: Extremities: extremities normal to inspection; no cyanosis a nd no clubbing Skin: no rashes, warm and dry Neurologic: moves all extremities and awake; no focal motor deficits Psychiatric: A+Ox3, euthymic affect Lymphatic: no lymphedema Results & Data Results & Data ([facility]) Vital Signs (Past 12 Hours) Vital Signs Temp Pulse Pulse Resp BP Pulse Ox 09/13/20 11:40 36.6 C 85 18 133/67 98 09/13/20 07:48 36.8 C 60 18 135/72 95 09/13/20 07:35 89 18 97 09/13/20 03:48 36.7 C 104 H 20 132/76 95 Laboratory Results 09/13/20 09/13/20 09/13/20 Range/Units 12:11 10:01 10:01 WBC 6.98 (4.8-10.8) K/uL RBC 3.14 L (4.2-5.4) M/uL Hgb 9.0 L (12.0-16.0) g/dL Hct 29.3 L (37-47) % MCV 93.3 (80-100) fL MCH 28.7 (25-34) pg MCHC 30.7 L (32-36) g/dL RDW Std Deviation 54.1 H (36.4-46.3) fL RDW Coeff of Erin 15.8 H (11.5-14.5) % Plt Count 300 (130-400) K/uL MPV 8.8 (7.4-10.4) fL Immature Gran % (Auto) 0.4 % Neut % (Auto) 76.2 % Lymph % (Auto) 12.2 % [place] % (Auto) 8.7 % Eos % (Auto) 2.4 % Baso % (Auto) 0.1 % Neut # (Auto) 5.31 (1.4-6.5) K/uL Lymph # (Auto) 0.85 L (1.2-3.4) K/uL [place] # (Auto) 0.61 H (0.11-0.59) K/uL Eos # (Auto) 0.17 (0-0.5) K/uL Baso # (Auto) 0.01 (0-0.2) K/uL Immature Gran # (Auto) 0.03 H (0.00-0.02) K/uL Sodium 139 (136-145) mmol/L Potassium 3.3 L (3.5-5.1) mmol/L Chloride 107 (98-107) mmol/L Carbon Dioxide 27 (21-32) mmol/L Anion Gap 5.0 (3-11) BUN 36 H (7-18) mg/dl Creatinine 1.20 (0.6-1.2) mg/dl Est Cr Clr Drug Dosing 44.3 ml/min Est GFR ( Amer) 49.1 ml/min Est GFR (Non-Af Amer) 42.4 ml/min BUN/Creatinine Ratio 30.3 H (10-20) Glucose 132 H (70-99) mg/dl POC Glucose 127 H (70-99) mg/dl Calcium 8.0 L (8.5-10.1) mg/dl Phosphorus 2.3 L (2.5-4.9) mg/dl Magnesium 1.8 (1.8-2.4) mg/dl Total Bilirubin 0.4 (0.2-1) mg/dl AST 20 (15-37) U/L ALT 10 L (12-78) U/L Alkaline Phosphatase 94 (45-117) U/L Total Protein 6.2 L (6.4-8.2) gm/dl Albumin 2.1 L (3.4-5.0) gm/dl Globulin 4.1 H (2.5-4.0) gm/dl Albumin/Globulin Ratio 0.5 L (0.9-2) 09/13/20 09/13/20 09/12/20 Range/Units 05:40 00:05 20:27 WBC (4.8-10.8) K/uL RBC (4.2-5.4) M/uL Hgb (12.0-16.0) g/dL Hct (37-47) % MCV (80-100) fL MCH (25-34) pg MCHC (32-36) g/dL RDW Std Deviation (36.4-46.3) fL RDW Coeff of Erin (11.5-14.5) % Plt Count (130-400) K/uL MPV (7.4-10.4) fL Immature Gran % (Auto) % Neut % (Auto) % Lymph % (Auto) % [place] % (Auto) % Eos % (Auto) % Baso % (Auto) % Neut # (Auto) (1.4-6.5) K/uL Lymph # (Auto) (1.2-3.4) K/uL [place] # (Auto) (0.11-0.59) K/uL Eos # (Auto) (0-0.5) K/uL Baso # (Auto) (0-0.2) K/uL Immature Gran # (Auto) (0.00-0.02) K/uL Sodium (136-145) mmol/L Potassium (3.5-5.1) mmol/L Chloride (98-107) mmol/L Carbon Dioxide (21-32) mmol/L Anion Gap (3-11) BUN (7-18) mg/dl Creatinine (0.6-1.2) mg/dl Est Cr Clr Drug Dosing ml/min Est GFR ( Amer) ml/min Est GFR (Non-Af Amer) ml/min BUN/Creatinine Ratio (10-20) Glucose (70-99) mg/dl POC Glucose 106 H 129 H 145 H (70-99) mg/dl Calcium (8.5-10.1) mg/dl Phosphorus (2.5-4.9) mg/dl Magnesium (1.8-2.4) mg/dl Total Bilirubin (0.2-1) mg/dl AST (15-37) U/L ALT (12-78) U/L Alkaline Phosphatase (45-117) U/L Total Protein (6.4-8.2) gm/dl Albumin (3.4-5.0) gm/dl Globulin (2.5-4.0) gm/dl Albumin/Globulin Ratio (0.9-2) 09/12/20 09/12/20 Range/Units 18:35 18:30 WBC (4.8-10.8) K/uL RBC (4.2-5.4) M/uL Hgb (12.0-16.0) g/dL Hct (37-47) % MCV (80-100) fL MCH (25-34) pg MCHC (32-36) g/dL RDW Std Deviation (36.4-46.3) fL RDW Coeff of Erin (11.5-14.5) % Plt Count (130-400) K/uL MPV (7.4-10.4) fL Immature Gran % (Auto) % Neut % (Auto) % Lymph % (Auto) % [place] % (Auto) % Eos % (Auto) % Baso % (Auto) % Neut # (Auto) (1.4-6.5) K/uL Lymph # (Auto) (1.2-3.4) K/uL [place] # (Auto) (0.11-0.59) K/uL Eos # (Auto) (0-0.5) K/uL Baso # (Auto) (0-0.2) K/uL Immature Gran # (Auto) (0.00-0.02) K/uL Sodium 136 (136-145) mmol/L Potassium 3.6 (3.5-5.1) mmol/L Chloride 105 (98-107) mmol/L Carbon Dioxide 25 (21-32) mmol/L Anion Gap 6.0 (3-11) BUN 42 H (7-18) mg/dl Creatinine 1.37 H (0.6-1.2) mg/dl Est Cr Clr Drug Dosing 39.4 ml/min Est GFR ( Amer) 41.8 ml/min Est GFR (Non-Af Amer) 36.1 ml/min BUN/Creatinine Ratio 30.8 H (10-20) Glucose 126 H (70-99) mg/dl POC Glucose 132 H (70-99) mg/dl Calcium 8.1 L (8.5-10.1) mg/dl Phosphorus (2.5-4.9) mg/dl Magnesium (1.8-2.4) mg/dl Total Bilirubin 0.4 (0.2-1) mg/dl AST 20 (15-37) U/L ALT 9 L (12-78) U/L Alkaline Phosphatase 96 (45-117) U/L Total Protein 6.2 L (6.4-8.2) gm/dl Albumin 2.1 L (3.4-5.0) gm/dl Globulin 4.1 H (2.5-4.0) gm/dl Albumin/Globulin Ratio 0.5 L (0.9-2) PG Care Time/CCT Total # of Minutes Spent Total Time Spent with Patient: Total time spent is greater than 50% in coordination of care (as documented) at patient's floor/unit and/or counseling patient: Coding Level of Care Code 27823 Subseq Hosp Care Lvl 3 Diagnoses Decubitus skin ulcer L89. Laterality: left Pressure injury location: hip Pressure injury stage: unstageable Nausea R11.0 CHF (congestive heart failure) I50.9 Heart failure chronicity: unspecified Heart failure type: unspecified Atrial fibrillation I48.91 Diabetes mellitus, type 2 E11.9 Anemia D64.9 CKD (chronic kidney disease) N18.9 Chronic kidney disease stage: unspecified stage Hypertension I10 Asthma J45.909 Anxiety F41.9 DVT prophylaxis Z29.9 (1) Decubitus skin ulcer Laterality: left Pressure injury location: hip Pressure injury stage: unstageable Qualified Code(s): L89. - Pressure ulcer of left hip, unstageable (2) CHF (congestive heart failure) Heart failure chronicity: unspecified Heart failure type: unspecified Qualified Code(s): I50.9 - Heart failure, unspecified (3) CKD (chronic kidney disease) Chronic kidney disease stage: unspecified stage Qualified Code(s): N18.9 - Chronic kidney disease, unspecified
[2020-09-13] MEDS ORDERED: MAGNESIUM SULFATE / D5W 1 GM/100 ML BAG IV ONE (12:30)
--- NOTE | 2020-09-13 13:14 | Electrocardiogram Report ---
Test Reason : Blood Pressure : / mmHG Vent. Rate : 088 BPM Atrial Rate : 080 BPM P-R Int : 000 ms QRS Dur : 118 ms QT Int : 394 ms P-R-T Axes : 000 -41 092 degrees QTc Int : 476 ms Atrial fibrillation Left axis deviation Poor R wave progression, consider anterior NV vs. lead placement vs. LVH Nonspecific ST abnormality Abnormal ECG When compared with ECG of 09-SEP-2020 10:54, QT has shortened Confirmed by Mazin Ashraf ([id number]) on 09/13/2020 1:14:13 PM Referred By: Oralia Colmenares Confirmed By:George Ashraf
[2020-09-13] MEDS: DIGOXIN 0.125 MG TAB PO SCH (16:51)
[2020-09-13] MEDS: ERTAPENEM SODIUM 1,000 MG in SODIUM CHLORIDE 0.9% 50 ML IV SCH (17:44)
[2020-09-13] MEDS: ACETAMINOPHEN 325 MG TAB PO PRN ×2 (17:49→23:14)
[2020-09-13] MEDS: GABAPENTIN 300 MG CAP PO SCH (21:02)
[2020-09-13] MEDS: ATORVASTATIN 40 MG TAB PO SCH (21:02)
[2020-09-13] MEDS: CITALOPRAM 40 MG TAB PO SCH (21:03)
[2020-09-14] MEDS: HEPARIN SOD 5,000 UNIT/0.5 ML VIAL SQ SCH ×3 (06:00→22:33)
[2020-09-14 06:10] LABS: Calcium 8.1 mg/dl (8.5-10.1); Creatinine Clr Calc Pharmacy 44.7 ml/min; Est GFR (African American) 50.1 ml/min; Est GFR (Non-African American) 43.2 ml/min; Magnesium 2.1 mg/dl (1.8-2.4); Potassium 3.3 mmol/L (3.5-5.1)
[2020-09-14 06:11] LABS: Phosphorus 2.9 mg/dl (2.5-4.9)
[2020-09-14] MEDS: SENNA 8.6 MG TAB PO SCH ×2 (08:19→20:40)
[2020-09-14] MEDS: ACETAMINOPHEN 325 MG TAB PO PRN ×2 (08:19→15:18)
[2020-09-14] MEDS: LORazepam 0.5 MG TAB PO SCH (08:19)
[2020-09-14] MEDS: bisacodyL 10 MG SUPP PR SCH (08:20)
[2020-09-14] MEDS: PANTOprazole 40 MG TAB PO SCH ×2 (08:20→20:40)
[2020-09-14] MEDS: FUROSEMIDE 40 MG TAB PO SCH (08:20)
[2020-09-14] MEDS: INSULIN GLARGINE SOLOSTAR 100 UNITS/ML 3 ML PEN SC SCH ×2 (08:20→20:40)
[2020-09-14] MEDS: AMIODARONE 200 MG TAB PO SCH ×2 (08:20→20:41)
[2020-09-14] MEDS: METOPROLOL SUCC 50MG EXT REL TAB PO SCH ×2 (08:20→20:41)
[2020-09-14] MEDS: DOCUSATE SODIUM 100 MG CAP PO SCH (08:21)
[2020-09-14] MEDS: INSULIN ASPART 100 UNITS/ML 3 ML PEN SC SCH ×4 (08:22→20:39)
[2020-09-14] MEDS: POTASSIUM CHLORIDE / WTR 10 MEQ/100 ML PLCT IV SCH ×4 (10:00→15:10)
[2020-09-14] MEDS: PROCHLORPERAZINE 10 MG in SYRINGE 8 ML IV PRN ×2 (10:00→18:05)
[2020-09-14] MEDS: DIGOXIN 0.125 MG TAB PO SCH (15:11)
[2020-09-14] MEDS: ERTAPENEM SODIUM 1,000 MG in SODIUM CHLORIDE 0.9% 50 ML IV SCH (15:15)
--- NOTE | 2020-09-14 15:40 | Hospitalist Progress Note ---
Date of Service September 14, 2020 Assessment & Plan (1) Decubitus skin ulcer: Plan: Decubitus skin ulcer: Presented from [facility] due to concerns regarding worsening open wounds of left buttocks with concern for need for IV antibiotics and debridement Debridement of sacral wound was delayed due to acute CHF as below on 09/08 Now status post debridement in the OR on 09/09-appreciate surgery management Wound culture now growing anaerobic gram neg rods-Bacteroides uniformis Blood cultures no growth to date Previously grew MSSA in bloodstream and from right chest wound and also has a history of Pseudomonas--> initially was on Cefepime and daptomycin in case of MRSA-both have since been discontinued Bacteroides uniformis on all wound cultures -had significant nausea swith starting Flagyl-discontinued Flagyl and now on Invanz -Started Invanz on 09/11 to cover for Bacteroides-pharmacy states that clindamycin would not work well and she cannot use Zosyn as she is allergic to penicillin -plan is for Invanz through 09/21 for total of 10 days of coverage 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, milk treater -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 in place -continue tylenol prn pain (2) Nausea: Plan: Started having significant nausea after starting metronidazole on 09/10-stopped Flagyl on 09/11 Nausea persisted x 2 days and then resolved with dc Flagyl, and restarted her usual lorazepam (might have had withdrawal from not receiving), and compazine CT abd/pel no obstruction but with rectal fecal impaction-now resolved with multiple BMs 09/13 and 09/14 CT head negative -Cannot use Zofran due to QT prolongation -continue Compazine to 10mg IV q6 as needed -continue lorazepam scheduled once daily as this is how she usually takes it advance diet to regular (3) CHF (congestive heart failure): Plan: With acute on chronic diastolic CHF and right-sided heart failure with flash pulmonary edema on 09/08 requiring IV Lasix and BiPAP Now much improved Is 98% on room air at rest Continue home Lasix 40 mg p.o. once daily Her weight is down from previous Overall, she looks much improved since I saw her 6 weeks ago when she was 19 kg heavier Repeat chest x-ray on 09/09 with very small bilateral pleural effusions and pulmonary vascular congestion Follow daily weights, strict I's and O's, low-sodium diet (4) Atrial fibrillation: Plan: Paroxysmal atrial fibrillation Remains in A. fib for many days now but rates are controlled Continue amiodarone 200 mg twice daily for now-if remains in atrial fibrillation, could consider discontinuing amiodarone-in the past however, she has converted back to sinus Continue digoxin 0.125 mg daily-repeat dig level performed 09/12 for nausea and is 0.8 Continue to monitor on telemetry Replace potassium and magnesium to keep greater than 4.0 and 2.0 respectively- giving replacement today of KCl Continue Toprol-XL 50 mg p.o. twice daily Is not on anticoagulation due to to recent previous history of severe acute blood loss anemia x 2 occasions (5) Diabetes mellitus, type 2: Plan: With hypoglycemia on 09/09 which is now improved Consult pharmacy for glycemic control Continue insulin management On Lantus 20 units daily at home, lower doses here Hemoglobin A1c here is only 5.4%-we will likely need a decrease in home dosing of insulin upon discharge (6) Anemia: Plan: Hemoglobin is stable at 9.0 for many days Had recent severe bleeding episodes requiring transfusions 1 month ago Follow CBC Avoiding anticoagulation (7) CKD (chronic kidney disease): Plan: Chronic kidney disease stage 4 Creatinine baseline 1.95-2.26 Creatinine today is stable at 1.18 -Avoid nephrotoxins -renally dose meds when appropriate -follow BMP (8) Hypertension: Plan: Blood pressures are controlled Continue Toprol-XL (9) Asthma: Plan: No acute issues DuoNebs every 2 hours as needed dc formoterol nebs and budesonide twice daily (10) Anxiety: Plan: No acute issues Continue citalopram continue lorazepam daily (11) DVT prophylaxis: Plan: Heparin SQ Disposition-continued stay on PCU, but improving, can return to rehab tomorrow if they have made arrangements for Invanz and wound vac-discussed care with [employer] Consultant Will call daughter to discuss care Admission and Anticipated Discharge Date Admission Date: September 06, 2020 Subjective Still waking up with some slight nausea but it isimproved. Has some heartburn in bottom of chest constantly. Does not want to eat regular food today, just liquids. No SOB. Has pain in bottom that is relieved with tylenol. Had 2 loose stools today with incontinence Tele with Afib, rates in 60-80s Review of Systems Review of Systems: All systems reviewed & are unremarkable except as noted in HPI & below Physical Exam Constitutional: WD/WN, vitals as above + morbidly obese Eyes: + anicteric sclerae Neck: trachea midline, no thyromegaly Respiratory: normal respiratory effort; no cough Auscultation: + diminished lung sounds (At bases bilaterally); no crackles and no wheezes Cardiovascular: Rate/Rhythm: regular rate and + irregularly irregular Heart Sounds: no murmur Extremities: + edema (trace pitting edema of the legs bilaterally) Gastrointestinal (Abdomen): Inspection/Auscultation: normal bowel sounds; abdomen not distended Percussion/Palpation: abdomen soft and + abdominal mass (Residual palpable hematoma in the left lower quadrant); abdomen nontender Musculoskeletal: Extremities: extremities normal to inspection; no cyanosis and no clubbing Skin: no rashes, warm and dry Neurologic: moves all extremities and awake; no focal motor deficits Psychiatric: Orientation: alert and oriented x 3 Affect: + flat affect Lymphatic: no lymphedema Results & Data Results & Data ([facility]) Vital Signs (Past 12 Hours) Vital Signs Temp Pulse Pulse Pulse Resp BP BP 09/14/20 15:13 36.8 C 75 19 124/73 09/14/20 15:11 79 09/14/20 10:49 36.7 C 77 17 94/48 L 09/14/20 10:35 71 09/14/20 09:01 36.3 C L 85 18 124/72 09/14/20 04:22 36.5 C 75 15 123/65 Pulse Ox 09/14/20 15:13 94 09/14/20 15:11 09/14/20 10:49 94 09/14/20 10:35 09/14/20 09:01 96 09/14/20 04:22 99 Laboratory Results 09/14/20 09/14/20 09/14/20 Range/Units 11:20 07:14 05:20 Sodium 139 (136-145) mmol/L Potassium 3.3 L (3.5-5.1) mmol/L Chloride 107 (98-107) mmol/L Carbon Dioxide 29 (21-32) mmol/L Anion Gap 3.0 (3-11) BUN 33 H (7-18) mg/dl Creatinine 1.18 (0.6-1.2) mg/dl Est Cr Clr Drug Dosing 44.7 ml/min Est GFR ( Amer) 50.1 ml/min Est GFR (Non-Af Amer) 43.2 ml/min BUN/Creatinine Ratio 28.0 H (10-20) Glucose 97 (70-99) mg/dl POC Glucose 124 H 108 H (70-99) mg/dl Calcium 8.1 L (8.5-10.1) mg/dl Phosphorus 2.9 (2.5-4.9) mg/dl Magnesium 2.1 (1.8-2.4) mg/dl 09/13/20 09/13/20 Range/Units 20:25 16:32 Sodium (136-145) mmol/L Potassium (3.5-5.1) mmol/L Chloride (98-107) mmol/L Carbon Dioxide (21-32) mmol/L Anion Gap (3-11) BUN (7-18) mg/dl Creatinine (0.6-1.2) mg/dl Est Cr Clr Drug Dosing ml/min Est GFR ( Amer) ml/min Est GFR (Non-Af Amer) ml/min BUN/Creatinine Ratio (10-20) Glucose (70-99) mg/dl POC Glucose 137 H 129 H (70-99) mg/dl Calcium (8.5-10.1) mg/dl Phosphorus (2.5-4.9) mg/dl Magnesium (1.8-2.4) mg/dl PG Care Time/CCT Total # of Minutes Spent Total Time Spent with Patient: Total time spent is greater than 50% in coordination of care (as documented) at patient's floor/unit and/or counseling patient: Coding Level of Care Code 73539 Subseq Hosp Care Lvl 3 Diagnoses Decubitus skin ulcer L89.220 Laterality: left Pressure injury location: hip Pressure injury stage: unstageable Nausea R11.0 CHF (congestive heart failure) I50.9 Heart failure chronicity: unspecified Heart failure type: unspecified Atrial fibrillation I48.91 Diabetes mellitus, type 2 E11.9 Anemia D64.9 CKD (chronic kidney disease) N18.9 Chronic kidney disease stage: unspecified stage Hypertension I10 Asthma J45.909 Anxiety F41.9 DVT prophylaxis Z29.9 (1) Decubitus skin ulcer Laterality: left Pressure injury location: hip Pressure injury stage: unstageable Qualified Code(s): L89.220 - Pressure ulcer of left hip, unstageable (2) CHF (congestive heart failure) Heart failure chronicity: unspecified Heart failure type: unspecified Qualified Code(s): I50.9 - Heart failure, unspecified (3) CKD (chronic kidney disease) Chronic kidney disease stage: unspecified stage Qualified Code(s): N18.9 - Chronic kidney disease, unspecified
[2020-09-14] MEDS: GABAPENTIN 300 MG CAP PO SCH (20:41)
[2020-09-14] MEDS: CITALOPRAM 40 MG TAB PO SCH (20:42)
[2020-09-14] MEDS: ATORVASTATIN 40 MG TAB PO SCH (20:42)
[2020-09-14] MEDS ORDERED: PROMETHAZINE HCL 12.5 MG in SODIUM CHLORIDE 0.9% 50 ML IV STA (21:11)
[2020-09-14] MEDS: ACETAMINOPHEN 500 MG TAB PO PRN (22:33)
[2020-09-15 05:38] LABS: Basophils # (auto) 0.01 K/uL (0-0.2); Basophils % (auto) 0.1 %; Eosinophils # (auto) 0.56 K/uL (0-0.5); Hematocrit (blood only) 28.9 % (37-47); Hemoglobin 8.8 g/dL (12.0-16.0); Immature Granulocytes # (auto) 0.03 K/uL (0.00-0.02); Immature Granulocytes % (auto) 0.3 %; Lymphocytes # (auto) 1.35 K/uL (1.2-3.4); Lymphocytes % (auto) 14.4 %; Mean Corpuscular Hemoglobin 28.7 pg (25-34); Mean Corpuscular Hgb Conc 30.4 g/dL (32-36); Mean Corpuscular Volume 94.1 fL (80-100); Mean Platelet Volume 8.9 fL (7.4-10.4); Monocytes # (auto) 0.82 K/uL (0.11-0.59); Monocytes % (auto) 8.7 %; Neutrophils # (auto) 6.62 K/uL (1.4-6.5); Neutrophils % (auto) 70.5 %; Platelet Count 303 K/uL (130-400); RDW Coefficient of Variation 15.8 % (11.5-14.5); RDW Standard Deviation 54.2 fL (36.4-46.3); Red Blood Count 3.07 M/uL (4.2-5.4); White Blood Count 9.39 K/uL (4.8-10.8)
[2020-09-15] MEDS: HEPARIN SOD 5,000 UNIT/0.5 ML VIAL SQ SCH ×3 (06:02→21:03)
[2020-09-15 06:28] LABS: BUN Creatinine Ratio 28.5 (10-20); Calcium 7.9 mg/dl (8.5-10.1); Creatinine Clr Calc Pharmacy 48.5 ml/min; Est GFR (African American) 53.9 ml/min; Est GFR (Non-African American) 46.5 ml/min; Phosphorus 2.7 mg/dl (2.5-4.9); Potassium 4.1 mmol/L (3.5-5.1)
[2020-09-15] MEDS: FUROSEMIDE 40 MG TAB PO SCH (08:00)
[2020-09-15] MEDS: bisacodyL 10 MG SUPP PR SCH (08:01)
[2020-09-15] MEDS: AMIODARONE 200 MG TAB PO SCH ×2 (08:01→21:08)
[2020-09-15] MEDS: PANTOprazole 40 MG TAB PO SCH ×2 (08:01→21:07)
[2020-09-15] MEDS: SENNA 8.6 MG TAB PO SCH ×2 (08:01→21:08)
[2020-09-15] MEDS: DOCUSATE SODIUM 100 MG CAP PO SCH (08:01)
[2020-09-15] MEDS: METOPROLOL SUCC 50MG EXT REL TAB PO SCH ×2 (08:01→21:07)
[2020-09-15] MEDS: INSULIN GLARGINE SOLOSTAR 100 UNITS/ML 3 ML PEN SC SCH ×2 (08:02→21:02)
[2020-09-15] MEDS: INSULIN ASPART 100 UNITS/ML 3 ML PEN SC SCH ×4 (08:02→21:02)
[2020-09-15] MEDS: LORazepam 0.5 MG TAB PO SCH (08:06)
[2020-09-15] MEDS: ACETAMINOPHEN 500 MG TAB PO PRN ×3 (08:06→21:52)
[2020-09-15] MEDS: PROCHLORPERAZINE 10 MG in SYRINGE 8 ML IV PRN ×2 (08:45→20:16)
[2020-09-15] MEDS: ERTAPENEM SODIUM 1,000 MG in SODIUM CHLORIDE 0.9% 50 ML IV SCH (15:17)
[2020-09-15] MEDS: DIGOXIN 0.125 MG TAB PO SCH (15:18)
--- NOTE | 2020-09-15 16:59 | Hospitalist Progress Note ---
Date of Service September 15, 2020 Assessment & Plan (1) Decubitus skin ulcer: Plan: Decubitus skin ulcer: Presented from [facility] due to concerns regarding worsening open wounds of left buttocks with concern for need for IV antibiotics and debridement Debridement of sacral wound was delayed initially due to acute CHF as below on 09/08 Now status post debridement in the OR on 09/09-appreciate surgery management Wound culture s all growing anaerobic gram neg rods-Bacteroides uniformis Blood cultures no growth to date Previously grew MSSA in bloodstream and from right chest wound and also has a history of Pseudomonas--> initially was on Cefepime and daptomycin in case of MRSA-both have since been discontinued -had significant nausea with starting Flagyl-discontinued Flagyl and now on Invanz -Started Invanz on 09/11 to cover for Bacteroides-pharmacy states that clindamycin would not work well and she cannot use Zosyn as she is allergic to penicillin -plan is for Invanz through 09/21 for total of 10 days of coverage 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, 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 -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 in place -continue tylenol prn pain (2) Nausea: Plan: Started having significant nausea after starting metronidazole on 09/10-stopped Flagyl on 09/11 Nausea persisted x 2 days and then improved with dc Flagyl, and restarted her usual lorazepam (might have had withdrawal from not receiving), and compazine CT abd/pel no obstruction but with rectal fecal impaction-now resolved with multiple BMs 09/13 and 09/14 CT head negative Still with poor appetite and residual nausea -Cannot use Zofran due to QT prolongation -continue Compazine to 10mg IV q6 as needed -continue lorazepam scheduled once daily as this is how she usually takes it (3) CHF (congestive heart failure): Plan: With acute on chronic diastolic CHF and right-sided heart failure with flash pulmonary edema on 09/08 requiring IV Lasix and BiPAP Now much improved Is 98% on room air at rest Continue home Lasix 40 mg p.o. once daily Her weight is down from previous Overall, she looks much improved since I saw her 6 weeks ago when she was 19 kg heavier Repeat chest x-ray on 09/09 with very small bilateral pleural effusions and pulmonary vascular congestion Follow daily weights, strict I's and O's, low-sodium diet (4) Atrial fibrillation: Plan: Paroxysmal atrial fibrillation Remains in A. fib for many days now but rates are controlled Continue amiodarone 200 mg twice daily for now-if remains in atrial fibrillation, could consider discontinuing amiodarone-in the past however, she has converted back to sinus on her own Continue digoxin 0.125 mg daily-repeat dig level performed 09/12 for nausea and is 0.8 Continue to monitor on telemetry Replace potassium and magnesium to keep greater than 4.0 and 2.0 respectively- none needed today Continue Toprol-XL 50 mg p.o. twice daily Is not on anticoagulation due to to recent previous history of severe acute blood loss anemia x 2 occasions (5) Diabetes mellitus, type 2: Plan: With hypoglycemia on 09/09 which is now improved Consult pharmacy for glycemic control Continue insulin management On Lantus 20 units daily at home, lower doses here Hemoglobin A1c here is only 5.4%- will likely need a decrease in home dosing of insulin upon discharge (6) Anemia: Plan: Hemoglobin is stable at 9.0 for many days Had recent severe bleeding episodes requiring transfusions 1 month ago Follow CBC Avoiding anticoagulation (7) CKD (chronic kidney disease): Plan: Chronic kidney disease stage 4 Creatinine baseline 1.95-2.26 Creatinine today is stable at 1.1 -Avoid nephrotoxins -renally dose meds when appropriate -follow BMP (8) Hypertension: Plan: Blood pressures are controlled Continue Toprol-XL (9) Asthma: Plan: No acute issues DuoNebs every 2 hours as needed (10) Anxiety: Plan: No acute issues, but seems more with depressed mood the last few days due to prolonged hospitalization Continue citalopram continue lorazepam daily (11) Aspiration into airway: Plan: had another episode of aspiration with taking pills today has had this before in hospital, clears with cough Consult Speech-plan for VFSS Wednesday continue minced and moist diet for now, aspiration precautions, upright for all meals (12) DVT prophylaxis: Plan: Heparin SQ Disposition-continued stay on PCU, improved except residual nausea. SHe can return to rehab Wednesday if they have made arrangements for Invanz and wound vac- discussed care with Cyber Threat Analyst Admission and Anticipated Discharge Date Admission Date: September 06, 2020 Subjective Pt with flat affect today. Had an aspiration event this AM and was coughing for a while, sats were fine. Has had some nausea still. Tired today and just wants to sleep. Todl the RN she's tired and "i don't want to do this anymore." Tele with Afib, rates 60-70s Review of Systems Review of Systems: All systems reviewed & are unremarkable except as noted in HPI & below Physical Exam Constitutional: WD/WN, vitals as above + morbidly obese Eyes: + anicteric sclerae Neck: trachea midline, no thyromegaly Respiratory: normal respiratory effort; no cough Auscultation: + diminished lung sounds (At bases bilaterally); no wheezes Cardiovascular: Rate/Rhythm: regular rate and + irregularly irregular Heart Sounds: no murmur Extremities: + edema (trace pitting edema of the legs bilaterally) Gastrointestinal (Abdomen): Inspection/Auscultation: normal bowel sounds; abdomen not distended Percussion/Palpation: abdomen soft and + abdominal mass (Residual palpable hematoma in the left lower quadrant); abdomen nontender Musculoskeletal: Extremities: extremities normal to inspection; no cyanosis and no clubbing Skin: no rashes, warm and dry Neurologic: moves all extremities and awake; no focal motor deficits Psychiatric: Orientation: alert and oriented x 3 Affect: + flat affect Lymphatic: no lymphedema Results & Data Results & Data ([facility]) Vital Signs (Past 12 Hours) Vital Signs Temp Pulse Pulse Resp BP Pulse Ox 09/15/20 15:20 36.6 C 57 L 16 131/66 98 09/15/20 15:18 74 09/15/20 11:12 36.8 C 69 18 125/69 97 09/15/20 10:39 68 09/15/20 07:11 36.7 C 74 16 163/74 H 97 Laboratory Results 09/15/20 09/15/20 09/15/20 Range/Units 16:34 11:11 07:09 WBC (4.8-10.8) K/uL RBC (4.2-5.4) M/uL Hgb (12.0-16.0) g/dL Hct (37-47) % MCV (80-100) fL MCH (25-34) pg MCHC (32-36) g/dL RDW Std Deviation (36.4-46.3) fL RDW Coeff of Erin (11.5-14.5) % Plt Count (130-400) K/uL MPV (7.4-10.4) fL Immature Gran % (Auto) % Neut % (Auto) % Lymph % (Auto) % [place] % (Auto) % Eos % (Auto) % Baso % (Auto) % Neut # (Auto) (1.4-6.5) K/uL Lymph # (Auto) (1.2-3.4) K/uL [place] # (Auto) (0.11-0.59) K/uL Eos # (Auto) (0-0.5) K/uL Baso # (Auto) (0-0.2) K/uL Immature Gran # (Auto) (0.00-0.02) K/uL Sodium (136-145) mmol/L Potassium (3.5-5.1) mmol/L Chloride (98-107) mmol/L Carbon Dioxide (21-32) mmol/L Anion Gap (3-11) BUN (7-18) mg/dl Creatinine (0.6-1.2) mg/dl Est Cr Clr Drug Dosing ml/min Est GFR ( Amer) ml/min Est GFR (Non-Af Amer) ml/min BUN/Creatinine Ratio (10-20) Glucose (70-99) mg/dl POC Glucose 110 H 113 H 97 (70-99) mg/dl Calcium (8.5-10.1) mg/dl Phosphorus (2.5-4.9) mg/dl Magnesium (1.8-2.4) mg/dl 09/15/20 09/15/20 09/14/20 Range/Units 05:11 05:11 19:51 WBC 9.39 (4.8-10.8) K/uL RBC 3.07 L (4.2-5.4) M/uL Hgb 8.8 L (12.0-16.0) g/dL Hct 28.9 L (37-47) % MCV 94.1 (80-100) fL MCH 28.7 (25-34) pg MCHC 30.4 L (32-36) g/dL RDW Std Deviation 54.2 H (36.4-46.3) fL RDW Coeff of Erin 15.8 H (11.5-14.5) % Plt Count 303 (130-400) K/uL MPV 8.9 (7.4-10.4) fL Immature Gran % (Auto) 0.3 % Neut % (Auto) 70.5 % Lymph % (Auto) 14.4 % [place] % (Auto) 8.7 % Eos % (Auto) 6.0 % Baso % (Auto) 0.1 % Neut # (Auto) 6.62 H (1.4-6.5) K/uL Lymph # (Auto) 1.35 (1.2-3.4) K/uL [place] # (Auto) 0.82 H (0.11-0.59) K/uL Eos # (Auto) 0.56 H (0-0.5) K/uL Baso # (Auto) 0.01 (0-0.2) K/uL Immature Gran # (Auto) 0.03 H (0.00-0.02) K/uL Sodium 139 (136-145) mmol/L Potassium 4.1 D (3.5-5.1) mmol/L Chloride 108 H (98-107) mmol/L Carbon Dioxide 27 (21-32) mmol/L Anion Gap 4.0 (3-11) BUN 32 H (7-18) mg/dl Creatinine 1.11 (0.6-1.2) mg/dl Est Cr Clr Drug Dosing 48.5 ml/min Est GFR ( Amer) 53.9 ml/min Est GFR (Non-Af Amer) 46.5 ml/min BUN/Creatinine Ratio 28.5 H (10-20) Glucose 82 (70-99) mg/dl POC Glucose 110 H (70-99) mg/dl Calcium 7.9 L (8.5-10.1) mg/dl Phosphorus 2.7 (2.5-4.9) mg/dl Magnesium 2.0 (1.8-2.4) mg/dl PG Care Time/CCT Total # of Minutes Spent Total Time Spent with Patient: Total time spent is greater than 50% in coordin ation of care (as documented) at patient's floor/unit and/or counseling patient: Coding Level of Care Code 69465 Subseq Hosp Care Lvl 2 Diagnoses Decubitus skin ulcer L89.220 Laterality: left Pressure injury location: hip Pressure injury stage: unstageable Nausea R11.0 CHF (congestive heart failure) I50.9 Heart failure chronicity: unspecified Heart failure type: unspecified Atrial fibrillation I48.91 Diabetes mellitus, type 2 E11.9 Anemia D64.9 CKD (chronic kidney disease) N18.9 Chronic kidney disease stage: unspecified stage Hypertension I10 Asthma J45.909 Anxiety F41.9 DVT prophylaxis Z29.9 Aspiration into airway T17.908A (1) Decubitus skin ulcer Laterality: left Pressure injury location: hip Pressure injury stage: unstageable Qualified Code(s): L89.220 - Pressure ulcer of left hip, unstageable (2) CHF (congestive heart failure) Heart failure chronicity: unspecified Heart failure type: unspecified Qualified Code(s): I50.9 - Heart failure, unspecified (3) CKD (chronic kidney disease) Chronic kidney disease stage: unspecified stage Qualified Code(s): N18.9 - Chronic kidney disease, unspecified
[2020-09-15] MEDS: CITALOPRAM 40 MG TAB PO SCH (21:07)
[2020-09-15] MEDS: ATORVASTATIN 40 MG TAB PO SCH (21:08)
[2020-09-15] MEDS: GABAPENTIN 300 MG CAP PO SCH (21:08)
[2020-09-16] MEDS: HEPARIN SOD 5,000 UNIT/0.5 ML VIAL SQ SCH ×3 (05:22→21:17)
[2020-09-16] MEDS: PANTOprazole 40 MG TAB PO SCH ×2 (08:05→21:16)
[2020-09-16] MEDS: SENNA 8.6 MG TAB PO SCH ×2 (08:05→21:16)
[2020-09-16] MEDS: FUROSEMIDE 40 MG TAB PO SCH (08:06)
[2020-09-16] MEDS: AMIODARONE 200 MG TAB PO SCH ×2 (08:06→21:17)
[2020-09-16] MEDS: DOCUSATE SODIUM 100 MG CAP PO SCH (08:06)
[2020-09-16] MEDS: INSULIN ASPART 100 UNITS/ML 3 ML PEN SC SCH ×4 (08:07→21:14)
[2020-09-16] MEDS: bisacodyL 10 MG SUPP PR SCH (08:08)
[2020-09-16] MEDS: INSULIN GLARGINE SOLOSTAR 100 UNITS/ML 3 ML PEN SC SCH (08:08)
[2020-09-16] MEDS: LORazepam 0.5 MG TAB PO SCH (08:12)
[2020-09-16 08:15] LABS: Basophils # (auto) 0.01 K/uL (0-0.2); Basophils % (auto) 0.1 %; Eosinophils # (auto) 0.54 K/uL (0-0.5); Eosinophils % (auto) 6.4 %; Hematocrit (blood only) 30.1 % (37-47); Hemoglobin 9.1 g/dL (12.0-16.0); Immature Granulocytes # (auto) 0.05 K/uL (0.00-0.02); Immature Granulocytes % (auto) 0.6 %; Lymphocytes # (auto) 1.36 K/uL (1.2-3.4); Lymphocytes % (auto) 16.2 %; Mean Corpuscular Hemoglobin 28.4 pg (25-34); Mean Corpuscular Hgb Conc 30.2 g/dL (32-36); Mean Corpuscular Volume 94.1 fL (80-100); Mean Platelet Volume 9.1 fL (7.4-10.4); Monocytes % (auto) 7.1 %; Neutrophils # (auto) 5.84 K/uL (1.4-6.5); Neutrophils % (auto) 69.6 %; Platelet Count 311 K/uL (130-400); RDW Coefficient of Variation 15.7 % (11.5-14.5); RDW Standard Deviation 53.8 fL (36.4-46.3)
[2020-09-16 08:47] LABS: BUN Creatinine Ratio 24.1 (10-20); Calcium 8.2 mg/dl (8.5-10.1); Creatinine Clr Calc Pharmacy 45.1 ml/min; Est GFR (African American) 51.1 ml/min; Est GFR (Non-African American) 44.1 ml/min; Potassium 4.2 mmol/L (3.5-5.1)
[2020-09-16] MEDS ORDERED: ONDANSETRON INJ 2 MG/ML 2 ML VIAL IV STA (09:05)
[2020-09-16] MEDS ORDERED: ONDANSETRON INJ 2 MG/ML 2 ML VIAL ONE (09:12)
[2020-09-16] MEDS: METOPROLOL SUCC 50MG EXT REL TAB PO SCH ×2 (09:16→21:15)
[2020-09-16] MEDS ORDERED: METOCLOPRAMIDE HCL INJ 5 MG/ML 2 ML VIAL IV STA (10:19)
--- NOTE | 2020-09-16 10:25 | Hospitalist Progress Note ---
Date of Service September 16, 2020 Assessment & Plan (1) Decubitus skin ulcer: Plan: Decubitus skin ulcer: Presented from [facility] due to concerns regarding worsening open wounds of left buttocks with concern for need for IV antibiotics and debridement Debridement of sacral wound was delayed initially due to acute CHF as below on 09/08 Now status post debridement in the OR on 09/09-appreciate surgery management Wound culture s all growing anaerobic gram neg rods-Bacteroides uniformis Blood cultures no growth to date Previously grew MSSA in bloodstream and from right chest wound and also has a history of Pseudomonas--> initially was on Cefepime and daptomycin in case of MRSA-both have since been discontinued -had significant nausea with starting Flagyl-discontinued Flagyl and now on Invanz -Started Invanz on 09/11 to cover for Bacteroides -plan is for Invanz through 09/21 for total of 10 days of coverage 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, no experience -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 in place -continue tylenol prn pain jessica conversation with patient and family today that she is not eating enough protein for wounds to heal will likely be ongoing issue plan for family meeting tomorrow (2) Nausea: Plan: Started having significant nausea after starting metronidazole on 09/10-stopped Flagyl on 09/11 per patient's daughter, she had some nausea and vomiting at [facility] prior to admission restarted her usual lorazepam and compazine CT abd/pel no obstruction but with rectal fecal impaction-now resolved with multiple BMs 09/13 and 09/14 CT head negative Still with poor appetite and residual nausea, no response to Compazine today tried Reglan 10mg IV, had a decent response, will make Reglan 10mg IV q6 scheduled for now -Cannot use Zofran due to QT prolongation -continue lorazepam scheduled once daily as this is how she usually takes it ongoing issue, if she cannot eat she will not heal (3) CHF (congestive heart failure): Plan: With acute on chronic diastolic CHF and right-sided heart failure with flash pulmonary edema on 09/08 requiring IV Lasix and BiPAP Now much improved for the past week Is >90% on room air at rest Continue home Lasix 40 mg p.o. once daily overall she is 19kg less than two months ago Repeat chest x-ray on 09/09 with very small bilateral pleural effusions and pulmonary vascular congestion Follow daily weights, strict I's and O's, low-sodium diet Cr is stable today as is K (4) Atrial fibrillation: Plan: Paroxysmal atrial fibrillation Continue amiodarone 200 mg twice daily Continue digoxin 0.125 mg daily-repeat dig level performed 09/12 for nausea and is 0.8 Continue to monitor on telemetry Replace potassium and magnesium Continue Toprol-XL 50 mg p.o. twice daily Is not on anticoagulation due to to recent previous history of severe acute blood loss anemia x 2 occasions (5) Diabetes mellitus, type 2: Plan: With hypoglycemia on 09/09 which is now improved Consult pharmacy for glycemic control Continue insulin management On Lantus 20 units daily at home, lower doses here Hemoglobin A1c here is only 5.4%- will likely need a decrease in home dosing of insulin upon discharge (6) Anemia: Plan: Hemoglobin is stable at 9.0 for many days Had recent severe bleeding episodes requiring transfusions 1 month ago Follow CBC Avoiding anticoagulation (7) CKD (chronic kidney disease): Plan: Chronic kidney disease stage 4 Creatinine baseline 1.95-2.26 Creatinine today is stable at 1.1 -Avoid nephrotoxins -renally dose meds when appropriate -follow BMP (8) Hypertension: Plan: Blood pressures are controlled Continue Toprol-XL (9) Asthma: Plan: No acute issues DuoNebs every 2 hours as needed (10) Anxiety: Plan: No acute issues, but seems more with depressed mood the last few days due to prolonged hospitalization Continue citalopram continue lorazepam daily (11) Aspiration into airway: Plan: had another episode of aspiration with taking pills on 09/15 has had this before in hospital, clears with cough Consult Speech-plan for VFSS Wednesday had silent aspiration with thin liquids, thick liquids very weak cough, does not cough on her own, even when cued to cough by speech therapy she did not do well discussed with patient and her family, given her poor oral intake would likely favor permissive aspiration (12) DVT prophylaxis: Plan: Heparin SQ Disposition-continued stay on PCU pending discharge to [facility] but need to discuss prognosis and goals of care with patient and her family tomorrow, otherwise she tyler continue to be re- admitted Admission and Anticipated Discharge Date Admission Date: September 06, 2020 Subjective patient continues to have nausea, not feeling well, no appetite did not improve with Ativan and compazine, some relief with Reglan today, will try that q6 reviewed chart from past week patient had video swallow study, she had silent aspiration, could not initiate a strong cough tried nectar thick liquids, made her gag, nauseated d/w nutrition, they have legitimate concerns that the patient is not eating enough, definitely not enough protein to support wound healing discussed with patient and the bedside and then with her daughter Rosa over the phone explained that she is in a difficult situation, faced with not eating enough and wounds becoming chronic issue and even if she eats she will aspirate and get pneumonia daughter agrees that she and her dad will come in tomorrow to talk about options at the bedside reviewed labs, WBC 8, Hb 9, plts 311 Cr 1.16, K 4.2, mag 2.0 Review of Systems Review of Systems: All systems reviewed & are unremarkable except as noted in Subjective Respiratory: no cough and no dyspnea Cardiovascular: no chest pain and no edema Gastrointestinal: + early satiety, + nausea and + vomiting; no abdominal pain, no constipation and no diarrhea/loose stools Musculoskeletal: + muscle weakness (generalized) Physical Exam Constitutional: well developed, comfortable and + overweight; no acute distress Neck: trachea midline, no thyromegaly Respiratory: normal respiratory effort, lungs clear to auscultation Cardiovascular: Rate/Rhythm: regular rate and + irregularly irregular Heart Sounds: normal S1 and normal S2; no murmur Extremities: normal capillary refill; no edema Gastrointestinal (Abdomen): normal bowel sounds, soft, nontender, no hepatosplenomegaly Musculoskeletal: Head/Neck/Chest: normocephalic, head atraumatic and neck supple; no chest tenderness Spine: thoracic spine normal to inspection and lumbar spine normal to inspection Extremities: + abnormal strength (generalized weakness) Skin: + wound (sacral decubitus ulcer) Neurologic: patellar DTR's 2+ bilat, sensation intact and PERRL, EOMI, accommodation nl, no face palsy, no dysarthria Psychiatric: A+Ox3, euthymic affect Results & Data Results & Data ([facility]) Vital Signs (Past 12 Hours) Vital Signs Temp Pulse Resp BP Pulse Ox 09/16/20 08:34 36.5 C 78 20 152/73 H 97 09/16/20 03:54 36.6 C 66 18 119/67 98 09/16/20 00:01 36.7 C 66 18 120/62 96 Laboratory Results Laboratory Results - last 24 hr 09/15/20 09/15/20 09/15/20 11:11 16:34 20:38 WBC RBC Hgb Hct MCV MCH MCHC RDW Std Deviation RDW Coeff of Erin Plt Count MPV Immature Gran % (Auto) Neut % (Auto) Lymph % (Auto) [place] % (Auto) Eos % (Auto) Baso % (Auto) Neut # (Auto) Lymph # (Auto) [place] # (Auto) Eos # (Auto) Baso # (Auto) Immature Gran # (Auto) Sodium Potassium Chloride Carbon Dioxide Anion Gap BUN Creatinine Est Cr Clr Drug Dosing Est GFR ( Amer) Est GFR (Non-Af Amer) BUN/Creatinine Ratio Glucose POC Glucose 113 H 110 H 118 H Calcium Magnesium 09/16/20 09/16/20 09/16/20 07:29 07:53 07:53 WBC 8.40 RBC 3.20 L Hgb 9.1 L Hct 30.1 L MCV 94.1 MCH 28.4 MCHC 30.2 L RDW Std Deviation 53.8 H RDW Coeff of Erin 15.7 H Plt Count 311 MPV 9.1 Immature Gran % (Auto) 0.6 Neut % (Auto) 69.6 Lymph % (Auto) 16.2 [place] % (Auto) 7.1 Eos % (Auto) 6.4 Baso % (Auto) 0.1 Neut # (Auto) 5.84 Lymph # (Auto) 1.36 [place] # (Auto) 0.60 H Eos # (Auto) 0.54 H Baso # (Auto) 0.01 Immature Gran # (Auto) 0.05 H Sodium 139 Potassium 4.2 Chloride 108 H Carbon Dioxide 26 Anion Gap 5.0 BUN 28 H Creatinine 1.16 Est Cr Clr Drug Dosing 45.1 Est GFR ( Amer) 51.1 Est GFR (Non-Af Amer) 44.1 BUN/Creatinine Ratio 24.1 H Glucose 90 POC Glucose 102 H Calcium 8.2 L Magnesium 2.0 Medications Administered Current Inpatient Medications Acetaminophen (Acetaminophen 500 Mg Tab) 1,000 mg PO Q8 PRN PRN Reason: pain/fever Stop: 10/06/20 15:00 Last Admin: 09/15/20 21:52 Dose: 1,000 mg Documented by: Al Hydrox/Mg Hydrox/Simethicone (Aluminum/Magnesium/Simeth (Maalox Max) 30 Ml Udc) 15 ml PO Q6H PRN PRN Reason: Heartburn Stop: 10/08/20 11:04 Amiodarone HCl (Amiodarone 200 Mg Tab) 200 mg PO BID ISAIAS Stop: 10/06/20 20:59 Last Admin: 09/16/20 08:06 Dose: 200 mg Documented by: Atorvastatin Calcium (Atorvastatin 40 Mg Tab) 40 mg PO HS ISAIAS Stop: 10/06/20 20:59 Last Admin: 09/15/20 21:08 Dose: 40 mg Documented by: Benzonatate (Benzonatate 100 Mg Capsule) 100 mg PO TID PRN PRN Reason: cough Stop: 10/07/20 20:59 Last Admin: 09/08/20 00:23 Dose: 100 mg Documented by: Bisacodyl (Bisacodyl 10 Mg Supp) 10 mg SC DAILY ISAIAS Stop: 10/13/20 08:59 Last Admin: 09/16/20 08:08 Dose: Not Given Documented by: Citalopram Hydrobromide (Citalopram 40 Mg Tab) 40 mg PO QPM ISAIAS Stop: 10/06/20 20:59 Last Admin: 09/15/20 21:07 Dose: 40 mg Documented by: Collagenase (Collagenase Oint 30 Gm Tube) 1 appln TOP DAILY PRN PRN Reason: pressure injuries Stop: 10/08/20 10:44 Dextrose (Dextrose 50% 50 Ml Syringe) 25 - 50 ml IV UD PRN; Protocol PRN Reason: Hypoglycemia Protocol Stop: 10/06/20 15:00 Last Admin: 09/09/20 07:41 Dose: 50 ml Documented by: Digoxin (Digoxin 0.125 Mg Tab) 0.125 mg PO DAILY@1600 ISAIAS Stop: 10/09/20 15:59 Last Admin: 09/15/20 15:18 Dose: 0.125 mg Documented by: Docusate Sodium (Docusate Sodium 100 Mg Cap) 200 mg PO DAILY ISAIAS Stop: 10/07/20 08:59 Last Admin: 09/16/20 08:06 Dose: 200 mg Documented by: Furosemide (Furosemide 40 Mg Tab) 40 mg PO QAM ISAIAS Stop: 10/09/20 08:59 Last Admin: 09/16/20 08:06 Dose: 40 mg Documented by: Gabapentin (Gabapentin 300 Mg Cap) 300 mg PO HS ISAIAS Stop: 10/06/20 20:59 Last Admin: 09/15/20 21:08 Dose: 300 mg Documented by: Glucagon (Glucagon For Inj 1 Mg Vial) 1 mg SQ UD PRN; Protocol PRN Reason: Hypoglycemia Protocol Stop: 10/06/20 15:00 Glucose (Glucose 10 Tabs/Tube) 4 - 8 tabs PO UD PRN; Protocol PRN Reason: Hypoglycemia Protocol Stop: 10/06/20 15:00 Glucose (Glucose 40% Gel 15 Gm Tube) 15 - 30 gm PO UD PRN; Protocol PRN Reason: Hypoglycemia Protocol Stop: 10/06/20 15:00 Heparin Sodium (Porcine) (Heparin Sod 5,000 Unit/0.5 Ml Vial) 7,500 units SQ Q8 ISAIAS Stop: 10/06/20 15:29 Last Admin: 09/16/20 05:22 Dose: 7,500 units Documented by: Ertapenem 1,000 mg/ Sodium (Chloride) 60 mls @ 100 mls/hr IV Q24H ISAIAS Stop: 09/20/20 15:35 Last Infusion: 09/15/20 16:00 Dose: Infused Documented by: Insulin Aspart (Insulin Aspart 100 Units/Ml 3 Ml Pen) 0 units SC ACHS [facility]; Protocol Stop: 10/13/20 09:04 Last Admin: 09/16/20 08:07 Dose: Not Given Documented by: Ipratropium [place] (Ipratropium [place] Nasal [place] 0.06% 15ml) 2 sprays NA TID PRN PRN Reason: allergy symptoms Stop: 10/06/20 15:19 Ipratropium [place] (Ipratropium [place] Neb Soln 0.02% 2.5 Ml Vial) 0.5 mg NEB Q6R PRN PRN Reason: Shortness Of Breath Or Wheezing Stop: 10/08/20 12:59 Last Admin: 09/12/20 06:18 Dose: 0.5 mg Documented by: Levalbuterol HCl (Levalbuterol Hcl 0.63 Mg/3 Ml Neb) 0.63 mg NEB Q6R PRN PRN Reason: Shortness Of Breath Or Wheezing Stop: 10/08/20 12:59 Last Admin: 09/12/20 06:18 Dose: 0.63 mg Documented by: Lorazepam (Lorazepam 0.5 Mg Tab) 0.5 mg PO QAM ISAIAS Stop: 10/14/20 08:59 Last Admin: 09/16/20 08:12 Dose: 0.5 mg Documented by: Metoclopramide HCl (Metoclopramide Hcl Inj 5 Mg/Ml 2 Ml Vial) 10 mg IV NOW STA Stop: 09/16/20 10:20 Metoprolol Succinate (Metoprolol Succ 50mg Ext Rel Tab) 50 mg PO BID [facility] Stop: 10/06/20 20:59 Last Admin: 09/16/20 09:16 Dose: 50 mg Documented by: Miscellaneous (Carbohydrates For Hypoglycemia ) 15 - 30 gm PO UD PRN PRN Reason: Hypoglycemia Protocol Stop: 10/06/20 15:00 Miscellaneous Information (Pharmacy Glycemic Mgmt Consult) 1 ea N/A UD PRN PRN Reason: Consult Stop: 10/09/20 08:32 Nitroglycerin (Nitroglycerin Sl 0.4 Mg/Tab Tab) 0.4 mg SL Q5M PRN PRN Reason: chest pain Stop: 10/06/20 15:00 Pantoprazole Sodium (Pantoprazole 40 Mg Tab) 40 mg PO BID [facility] Stop: 10/14/20 20:59 Last Admin: 09/16/20 08:05 Dose: 40 mg Documented by: Sennosides (Senna 8.6 Mg Tab) 8.6 mg PO BID [facility] Stop: 10/14/20 20:59 Last Admin: 09/16/20 08:05 Dose: 8.6 mg Documented by: PG Care Time/CCT Total # of Minutes Spent Total Time Spent with Patient: Total time spent is greater than 50% in coordination of care (as documented) at patient's floor/unit and/or counseling patient: Coding Level of Care Code 07322 Subseq Hosp Care Lvl 3 Diagnoses Decubitus skin ulcer L89.220 Laterality: left Pressure injury location: hip Pressure injury stage: unstageable Nausea R11.0 CHF (congestive heart failure) I50.9 Heart failure chronicity: unspecified Heart failure type: unspecified Atrial fibrillation I48.91 Diabetes mellitus, type 2 E11.9 Anemia D64.9 CKD (chronic kidney disease) N18.9 Chronic kidney disease stage: unspecified stage Hypertension I10 Asthma J45.909 Anxiety F41.9 Aspiration into airway T17.908A DVT prophylaxis Z29.9 (1) CHF (congestive heart failure) Heart failure chronicity: unspecified Heart failure type: unspecified Qualified Code(s): I50.9 - Heart failure, unspecified (2) CKD (chronic kidney disease) Chronic kidney disease stage: unspecified stage Qualified Code(s): N18.9 - Chronic kidney disease, unspecified (3) Decubitus skin ulcer Laterality: left Pressure injury location: hip Pressure injury stage: unstageable Qualified Code(s): L89.220 - Pressure ulcer of left hip, unstageable
[2020-09-16] MEDS: ACETAMINOPHEN 500 MG TAB PO PRN ×2 (12:03→19:25)
--- NOTE | 2020-09-16 13:50 | Fluoroscopy Report ---
MODIFIED BARIUM SWALLOW CLINICAL HISTORY: frequent aspiration COMPARISON STUDY: Barium swallow January 07, 2006. FLUOROSCOPY TIME: 1.6 minutes. TECHNIQUE: A modified barium swallow was performed in conjunction with Speech Pathology. The patient ingested varying consistencies of barium containing material. Video fluoroscopy was performed. FINDINGS: Multiple episodes of silent tracheal aspiration were noted with thin liquids by spoon as we ll as single swallows of thin liquids. Premature spillage was noted. No aspiration was identified wit h nectar thick liquids, pudding or crackers with paste. IMPRESSION: 1. Multiple episodes of silent tracheal aspiration with thin liquids. 2. No aspiration with nectar thick liquids, pudding or crackers with paste. 3. Full recommendations by speech pathology to follow. ACT 112: Negative or not required by law. Electronically signed by: Mark Fine M.D. 09/16/2020 1:49 PM
[2020-09-16] MEDS: ERTAPENEM SODIUM 1,000 MG in SODIUM CHLORIDE 0.9% 50 ML IV SCH (15:48)
[2020-09-16] MEDS: DIGOXIN 0.125 MG TAB PO SCH (15:49)
[2020-09-16] MEDS: METOCLOPRAMIDE HCL INJ 5 MG/ML 2 ML VIAL IV SCH ×2 (17:22→23:22)
[2020-09-16] MEDS: GABAPENTIN 300 MG CAP PO SCH (21:16)
[2020-09-16] MEDS: ATORVASTATIN 40 MG TAB PO SCH (21:17)
[2020-09-16] MEDS: CITALOPRAM 40 MG TAB PO SCH (21:17)
[2020-09-17] MEDS: METOCLOPRAMIDE HCL INJ 5 MG/ML 2 ML VIAL IV SCH ×4 (05:34→23:46)
[2020-09-17] MEDS: HEPARIN SOD 5,000 UNIT/0.5 ML VIAL SQ SCH ×3 (05:34→21:45)
[2020-09-17] MEDS: INSULIN ASPART 100 UNITS/ML 3 ML PEN SC SCH ×4 (08:41→20:46)
[2020-09-17] MEDS: bisacodyL 10 MG SUPP PR SCH (09:36)
[2020-09-17] MEDS: DOCUSATE SODIUM 100 MG CAP PO SCH (09:36)
[2020-09-17] MEDS: FUROSEMIDE 40 MG TAB PO SCH (09:54)
[2020-09-17] MEDS: LORazepam 0.5 MG TAB PO SCH (09:54)
[2020-09-17] MEDS: METOPROLOL SUCC 50MG EXT REL TAB PO SCH ×2 (09:55→20:49)
[2020-09-17] MEDS: AMIODARONE 200 MG TAB PO SCH ×2 (09:55→20:48)
[2020-09-17] MEDS: SENNA 8.6 MG TAB PO SCH ×2 (09:56→20:50)
[2020-09-17] MEDS: PANTOprazole 40 MG TAB PO SCH ×2 (09:56→20:49)
--- NOTE | 2020-09-17 11:20 | Pharmacy Report ---
Pharmacy Glycemic Short Note 2 - Date of Service September 17, 2020 - Glycemic Short BSG Results (Last 24 hours): 09/16/20 09/16/20 09/17/20 16:45 20:48 07:27 POC Glucose 105 H 150 H 105 H OUTPATIENT ANTIDIABETIC REGIMEN: * Lantus 20 units daily ASSESSMENT: 09/17/20 * Ms Mcbride has only 1 unit of insulin in the past 5 days. All BSGs within range except for one yesterday evening (150 mg/dL). * Continue with Novolog only. Background * Ms Mcbride is an 80 y/o F with a PMH of IDDM who presents with a decubitus ulcer debridement. * She received only 2 units of Novolog yesterday. Minimal oral intake. * Fasting BSG is trending upward. Will enter a Lantus dose per scale order to only be given for BSG of 140 mg/dL or more. PLAN FOR INPATIENT GLYCEMIC CONTROL: * Basal insulin- none * Bolus insulin * NovoLog per scale ACHS or Q6hrs while NPO * Goal Range: Low 110 mg/dL - High 140 mg/dL * Correction Factor: 30 mg/dL/unit * Nutritional / Prandial insulin per carb ratio of 1 unit per 10 grams CHO consumed PLAN FOR DISCHARGE: * A1c of 5.4% is below goal * If patient goes to SNF, she may not require insulin depending on PO intake. * Recommend monitoring BSGs as an outpatient at [facility] then initiating insulin as appropriate.
[2020-09-17] MEDS: ACETAMINOPHEN 500 MG TAB PO PRN ×2 (12:11→20:47)
--- NOTE | 2020-09-17 13:57 | Hospitalist Progress Note ---
Date of Service September 17, 2020 Assessment & Plan (1) Decubitus skin ulcer: Plan: Decubitus skin ulcer: Presented from [facility] due to concerns regarding worsening open wounds of left buttocks with concern for need for IV antibiotics and debridement Debridement of sacral wound was delayed initially due to acute CHF as below on 09/08 Now status post debridement in the OR on 09/09-appreciate surgery management Wound culture s all growing anaerobic gram neg rods-Bacteroides uniformis Blood cultures no growth to date Previously grew MSSA in bloodstream and from right chest wound and also has a history of Pseudomonas--> initially was on Cefepime and daptomycin in case of MRSA-both have since been discontinued -had significant nausea with starting Flagyl-discontinued Flagyl and now on Invanz -Started Invanz on 09/11 to cover for Bacteroides -plan is for Invanz through 09/21 for total of 10 days of coverage 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, group marketing vp -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 in place -continue tylenol prn pain try to discharge tomorrow (2) Nausea: Plan: Started having significant nausea after starting metronidazole on 09/10-stopped Flagyl on 09/11 per patient's daughter, she had some nausea and vomiting at [facility] prior to admission restarted her usual lorazepam and compazine CT abd/pel no obstruction but with rectal fecal impaction-now resolved with multiple BMs 09/13 and 09/14 CT head negative Still with poor appetite and residual nausea, no response to Compazine for a few days tried Reglan 10mg IV, had a decent response, will make Reglan 10mg IV q6 scheduled for now -Cannot use Zofran due to QT prolongation -continue lorazepam scheduled once daily as this is how she usually takes it less nausea today, able to eat more, encouraged her to try to eat more protein (3) Aspiration into airway: Plan: had another episode of aspiration with taking pills on 09/15 has had this before in hospital, clears with cough Consult Speech- [facility] on 09/16 had silent aspiration with thin liquids, thick liquids very weak cough, does not cough on her own, even when cued to cough by speech therapy she did not do well discussed with patient and her family, they are in agreement with permissive aspiration, understand she is at risk of pneumonia changed to thin liquids (4) CHF (congestive heart failure): Plan: With acute on chronic diastolic CHF and right-sided heart failure with flash pulmonary edema on 09/08 requiring IV Lasix and BiPAP Now much improved for the past week Is >90% on room air at rest Continue home Lasix 40 mg p.o. once daily overall she is 19kg less than two months ago Repeat chest x-ray on 09/09 with very small bilateral pleural effusions and pulmonary vascular congestion Follow daily weights, strict I's and O's, low-sodium diet Cr is stable as is K, BMP tomorrow (5) Atrial fibrillation: Plan: Paroxysmal atrial fibrillation Continue amiodarone 200 mg twice daily Continue digoxin 0.125 mg daily-repeat dig level performed 09/12 for nausea and is 0.8 Continue to monitor on telemetry Replace potassium and magnesium Continue Toprol-XL 50 mg p.o. twice daily Is not on anticoagulation due to to recent previous history of severe acute blood loss anemia x 2 occasions (6) Diabetes mellitus, type 2: Plan: With hypoglycemia on 09/09 which is now improved Consult pharmacy for glycemic control Continue insulin management On Lantus 20 units daily at home, lower doses here Hemoglobin A1c here is only 5.4%- will likely need a decrease in home dosing of insulin upon discharge (7) Anemia: Plan: Hemoglobin is stable at 9.0 for many days Had recent severe bleeding episodes requiring transfusions 1 month ago Follow CBC Avoiding anticoagulation (8) CKD (chronic kidney disease): Plan: Chronic kidney disease stage 4 Creatinine baseline 1.95-2.26 Creatinine 09/16 stable at 1.1 -Avoid nephrotoxins -renally dose meds when appropriate -follow BMP (9) Hypertension: Plan: Blood pressures are controlled Continue Toprol-XL (10) Asthma: Plan: No acute issues DuoNebs every 2 hours as needed (11) Anxiety: Plan: No acute issues, but seems more with depressed mood the last few days due to prolonged hospitalization Continue citalopram continue lorazepam daily (12) DVT prophylaxis: Plan: Heparin SQ Disposition-continued stay on PCU pending discharge to [facility], can go tomorrow Admission and Anticipated Discharge Date Admission Date: September 06, 2020 Subjective patient feeling better with the Reglan 10mg q6, less nausea, eating a little better still very weak, has issues with nectar thick liquids, makes her gag met with patient and with her daughter Rosa, her and her son was on the phone discussed her poor oral intake and her poor swallow study yesterday with aspiration, discussed that she cannot really eat/drink enough patient and family in agreement with allowing thin liquids with permissive aspiration, understand that she will be more at risk for pneumonia patient says she does not want to quit fighting, she was doing well with therapy at [facility] prior to this, she was walking a short distance her ultimate goal is to get strong enough and well enough to get to be with her will repeat labs tomorrow Review of Systems Review of Systems: All systems reviewed & are unremarkable except as noted in Subjective Constitutional: + fatigue and + weakness; no fever Respiratory: no cough and no dyspnea Cardiovascular: no chest pain and no edema Gastrointestinal: + nausea and + diarrhea/loose stools; no abdominal pain, no vomiting and no constipation Physical Exam Constitutional: well developed, comfortable and + overweight; no acute distress Neck: trachea midline, no thyromegaly Respiratory: normal respiratory effort, lungs clear to auscultation Cardiovascular: Rate/Rhythm: regular rate and + irregularly irregular Heart Sounds: normal S1 and normal S2; no murmur Extremities: normal capillary refill; no edema Gastrointestinal (Abdomen): normal bowel sounds, soft, nontender, no hepatosplenomegaly Musculoskeletal: Head/Neck/Chest: normocephalic, head atraumatic and neck supple; no chest tenderness Spine: thoracic spine normal to inspection and lumbar spine normal to inspection Extremities: + abnormal strength (generalized weakness) Skin: + wound (sacral decubitus ulcer) Neurologic: patellar DTR's 2+ bilat, sensation intact and PERRL, EOMI, accommodation nl, no face palsy, no dysarthria Psychiatric: A+Ox3, euthymic affect Results & Data Results & Data ([facility]) Vital Signs (Past 12 Hours) Vital Signs Temp Pulse Resp BP Pulse Ox 09/17/20 10:47 36.8 C 64 19 119/63 92 09/17/20 08:25 37.0 C 67 18 125/64 98 Laboratory Results Laboratory Results - last 24 hr 09/17/20 09/17/20 09/17/20 07:27 11:13 12:01 POC Glucose 105 H 118 H 116 H 09/17/20 09/17/20 16:34 20:21 POC Glucose 129 H 133 H Medications Administered Current Inpatient Medications Acetaminophen (Acetaminophen 500 Mg Tab) 1,000 mg PO Q8 PRN PRN Reason: pain/fever Stop: 10/06/20 15:00 Last Admin: 09/17/20 12:11 Dose: 1,000 mg Documented by: Al Hydrox/Mg Hydrox/Simethicone (Aluminum/Magnesium/Simeth (Maalox Max) 30 Ml Udc) 15 ml PO Q6H PRN PRN Reason: Heartburn Stop: 10/08/20 11:04 Amiodarone HCl (Amiodarone 200 Mg Tab) 200 mg PO BID ISAIAS Stop: 10/06/20 20:59 Last Admin: 09/17/20 09:55 Dose: 200 mg Documented by: Atorvastatin Calcium (Atorvastatin 40 Mg Tab) 40 mg PO HS ISAIAS Stop: 10/06/20 20:59 Last Admin: 09/16/20 21:17 Dose: 40 mg Documented by: Benzonatate (Benzonatate 100 Mg Capsule) 100 mg PO TID PRN PRN Reason: cough Stop: 10/07/20 20:59 Last Admin: 09/08/20 00:23 Dose: 100 mg Documented by: Bisacodyl (Bisacodyl 10 Mg Supp) 10 mg OR DAILY ISAIAS Stop: 10/13/20 08:59 Last Admin: 09/17/20 09:36 Dose: Not Given Documented by: Citalopram Hydrobromide (Citalopram 40 Mg Tab) 40 mg PO QPM ISAIAS Stop: 10/06/20 20:59 Last Admin: 09/16/20 21:17 Dose: 40 mg Documented by: Collagenase (Collagenase Oint 30 Gm Tube) 1 appln TOP DAILY PRN PRN Reason: pressure injuries Stop: 10/08/20 10:44 Dextrose (Dextrose 50% 50 Ml Syringe) 25 - 50 ml IV UD PRN; Protocol PRN Reason: Hypoglycemia Protocol Stop: 10/06/20 15:00 Last Admin: 09/09/20 07:41 Dose: 50 ml Documented by: Digoxin (Digoxin 0.125 Mg Tab) 0.125 mg PO DAILY@1600 ISAIAS Stop: 10/09/20 15:59 Last Admin: 09/16/20 15:49 Dose: 0.125 mg Documented by: Docusate Sodium (Docusate Sodium 100 Mg Cap) 200 mg PO DAILY ISAIAS Stop: 10/07/20 08:59 Last Admin: 09/17/20 09:36 Dose: Not Given Documented by: Furosemide (Furosemide 40 Mg Tab) 40 mg PO QAM ISAIAS Stop: 10/09/20 08:59 Last Admin: 09/17/20 09:54 Dose: 40 mg Documented by: Gabapentin (Gabapentin 300 Mg Cap) 300 mg PO HS ISAIAS Stop: 10/06/20 20:59 Last Admin: 09/16/20 21:16 Dose: 300 mg Documented by: Glucagon (Glucagon For Inj 1 Mg Vial) 1 mg SQ UD PRN; Protocol PRN Reason: Hypoglycemia Protocol Stop: 10/06/20 15:00 Glucose (Glucose 10 Tabs/Tube) 4 - 8 tabs PO UD PRN; Protocol PRN Reason: Hypoglycemia Protocol Stop: 10/06/20 15:00 Glucose (Glucose 40% Gel 15 Gm Tube) 15 - 30 gm PO UD PRN; Protocol PRN Reason: Hypoglycemia Protocol Stop: 10/06/20 15:00 Heparin Sodium (Porcine) (Heparin Sod 5,000 Unit/0.5 Ml Vial) 7,500 units SQ Q8 ISAIAS Stop: 10/06/20 15:29 Last Admin: 09/17/20 05:34 Dose: 7,500 units Documented by: Ertapenem 1,000 mg/ Sodium (Chloride) 60 mls @ 100 mls/hr IV Q24H ISAIAS Stop: 09/20/20 15:35 Last Infusion: 09/16/20 16:53 Dose: Infused Documented by: Insulin Aspart (Insulin Aspart 100 Units/Ml 3 Ml Pen) 0 units SC ACHS [facility]; Protocol Stop: 10/13/20 09:04 Last Admin: 09/17/20 12:03 Dose: 1 units Documented by: Ipratropium [place] (Ipratropium [place] Nasal [place] 0.06% 15ml) 2 sprays NA TID PRN PRN Reason: allergy symptoms Stop: 10/06/20 15:19 Ipratropium [place] (Ipratropium [place] Neb Soln 0.02% 2.5 Ml Vial) 0.5 mg NEB Q6R PRN PRN Reason: Shortness Of Breath Or Wheezing Stop: 10/08/20 12:59 Last Admin: 09/12/20 06:18 Dose: 0.5 mg Documented by: Levalbuterol HCl (Levalbuterol Hcl 0.63 Mg/3 Ml Neb) 0.63 mg NEB Q6R PRN PRN Reason: Shortness Of Breath Or Wheezing Stop: 10/08/20 12:59 Last Admin: 09/12/20 06:18 Dose: 0.63 mg Documented by: Lorazepam (Lorazepam 0.5 Mg Tab) 0.5 mg PO QAM [facility] Stop: 10/14/20 08:59 Last Admin: 09/17/20 09:54 Dose: 0.5 mg Documented by: Metoclopramide HCl (Metoclopramide Hcl Inj 5 Mg/Ml 2 Ml Vial) 10 mg IV Q6H [facility] Stop: 10/16/20 16:59 Last Admin: 09/17/20 12:05 Dose: 10 mg Documented by: Metoprolol Succinate (Metoprolol Succ 50mg Ext Rel Tab) 50 mg PO BID [facility] Stop: 10/06/20 20:59 Last Admin: 09/17/20 09:55 Dose: 50 mg Documented by: Miscellaneous (Carbohydrates For Hypoglycemia ) 15 - 30 gm PO UD PRN PRN Reason: Hypoglycemia Protocol Stop: 10/06/20 15:00 Miscellaneous Information (Pharmacy Glycemic Mgmt Consult) 1 ea N/A UD PRN PRN Reason: Consult Stop: 10/09/20 08:32 Nitroglycerin (Nitroglycerin Sl 0.4 Mg/Tab Tab) 0.4 mg SL Q5M PRN PRN Reason: chest pain Stop: 10/06/20 15:00 Pantoprazole Sodium (Pantoprazole 40 Mg Tab) 40 mg PO BID [facility] Stop: 10/14/20 20:59 Last Admin: 09/17/20 09:56 Dose: 40 mg Documented by: Sennosides (Senna 8.6 Mg Tab) 8.6 mg PO BID [facility] Stop: 10/14/20 20:59 Last Admin: 09/17/20 09:56 Dose: Not Given Documented by: PG Care Time/CCT Total # of Minutes Spent Total Time Spent: 35 Total Time Spent with Patient: Total time spent is greater than 50% in coordination of care (as documented) at patient's floor/unit and/or counseling patient: Coding Level of Care Code 98785 Subseq Hosp Care Lvl 3 (25 - SIGNIFICANT, SEPARATELY IDENTIFIABLE ) Diagnoses Decubitus skin ulcer L89.220 Laterality: left Pressure injury location: hip Pressure injury stage: unstageable Nausea R11.0 CHF (congestive heart failure) I50.9 Heart failure chronicity: unspecified Heart failure type: unspecified Atrial fibrillation I48.91 Diabetes mellitus, type 2 E11.9 Anemia D64.9 CKD (chronic kidney disease) N18.9 Chronic kidney disease stage: unspecified stage Hypertension I10 Asthma J45.909 Anxiety F41.9 Aspiration into airway T17.908A DVT prophylaxis Z29.9 (1) CHF (congestive heart failure) Heart failure chronicity: unspecified Heart failure type: unspecified Qualified Code(s): I50.9 - Heart failure, unspecified (2) CKD (chronic kidney disease) Chronic kidney disease stage: unspecified stage Qualified Code(s): N18.9 - Chronic kidney disease, unspecified (3) Decubitus skin ulcer Laterality: left Pressure injury location: hip Pressure injury stage: unstageable Qualified Code(s): L89.220 - Pressure ulcer of left hip, unstageable
[2020-09-17] MEDS: ERTAPENEM SODIUM 1,000 MG in SODIUM CHLORIDE 0.9% 50 ML IV SCH (15:05)
[2020-09-17] MEDS: DIGOXIN 0.125 MG TAB PO SCH (16:50)
[2020-09-17] MEDS: CITALOPRAM 40 MG TAB PO SCH (20:48)
[2020-09-17] MEDS: GABAPENTIN 300 MG CAP PO SCH (20:48)
[2020-09-17] MEDS: ATORVASTATIN 40 MG TAB PO SCH (20:48)
[2020-09-18] MEDS: METOCLOPRAMIDE HCL INJ 5 MG/ML 2 ML VIAL IV SCH ×2 (05:49→10:58)
[2020-09-18] MEDS: HEPARIN SOD 5,000 UNIT/0.5 ML VIAL SQ SCH ×2 (05:50→15:33)
[2020-09-18] MEDS: INSULIN ASPART 100 UNITS/ML 3 ML PEN SC SCH ×2 (08:19→12:41)
[2020-09-18] MEDS: PANTOprazole 40 MG TAB PO SCH (08:20)
[2020-09-18] MEDS: AMIODARONE 200 MG TAB PO SCH (08:20)
[2020-09-18] MEDS: FUROSEMIDE 40 MG TAB PO SCH (08:20)
[2020-09-18] MEDS: METOPROLOL SUCC 50MG EXT REL TAB PO SCH (08:21)
[2020-09-18] MEDS: SENNA 8.6 MG TAB PO SCH (08:21)
[2020-09-18] MEDS: DOCUSATE SODIUM 100 MG CAP PO SCH (08:21)
[2020-09-18] MEDS: bisacodyL 10 MG SUPP PR SCH (08:21)
[2020-09-18] MEDS: LORazepam 0.5 MG TAB PO SCH (08:22)
[2020-09-18 08:32] LABS: Hematocrit (blood only) 31.2 % (37-47); Hemoglobin 9.5 g/dL (12.0-16.0); Mean Corpuscular Hemoglobin 28.4 pg (25-34); Mean Corpuscular Hgb Conc 30.4 g/dL (32-36); Mean Corpuscular Volume 93.4 fL (80-100); Mean Platelet Volume 9.1 fL (7.4-10.4); Platelet Count 336 K/uL (130-400); RDW Coefficient of Variation 16.1 % (11.5-14.5); RDW Standard Deviation 54.7 fL (36.4-46.3); Red Blood Count 3.34 M/uL (4.2-5.4); White Blood Count 8.49 K/uL (4.8-10.8)
[2020-09-18 08:52] LABS: BUN Creatinine Ratio 21.6 (10-20); Calcium 8.2 mg/dl (8.5-10.1); Creatinine Clr Calc Pharmacy 44.4 ml/min; Est GFR (African American) 47.6 ml/min; Est GFR (Non-African American) 41.1 ml/min; Potassium 4.1 mmol/L (3.5-5.1)
[2020-09-18] MEDS ORDERED: Nursing to Pharmacy Communication SCH (10:45)
[2020-09-18] MEDS: ACETAMINOPHEN 500 MG TAB PO PRN (10:53)
[2020-09-18] MEDS: ERTAPENEM SODIUM 1,000 MG in SODIUM CHLORIDE 0.9% 50 ML IV SCH (12:47)
[2020-09-18] MEDS: DIGOXIN 0.125 MG TAB PO SCH (15:36)
--- NOTE | 2020-09-18 15:53 | Discharge Summary ---
Date of Service September 18, 2020 Admission HPI Per Admitting Provider The patient is a 80-year-old female with a past medical history including right heart failure, CKD stage III, atrial fibrillation, MSSA bacteremia, hypertension, hyperlipidemia, anxiety, asthma, diabetes mellitus type 2, CHF, acute blood loss anemia, acute respiratory failure with hypoxia, hypertensive emergency, pneumonia, UTI, asthma and chronic chest pain. She is referred to the emergency department as noted above. Principal Diagnosis Sacral decubitus ulcer, infected Discharge Exam Constitutional well developed, comfortable and + overweight; no acute distress Neck trachea midline, no thyromegaly Respiratory normal respiratory effort, lungs clear to auscultation Cardiovascular Rate/Rhythm: regular rate and + irregularly irregular Heart Sounds: normal S1 and normal S2; no murmur Extremities: normal capillary refill; no edema Gastrointestinal (Abdomen) normal bowel sounds, soft, nontender, no hepatosplenomegaly Musculoskeletal Head/Neck/Chest: normocephalic, head atraumatic and neck supple; no chest tenderness Spine: thoracic spine normal to inspection and lumbar spine normal to inspection Extremities: + abnormal strength (generalized weakness) Skin + wound (sacral decubitus ulcer) Neurologic patellar DTR's 2+ bilat, sensation intact and PERRL, EOMI, accommodation nl, no face palsy, no dysarthria Psychiatric A+Ox3, euthymic affect Discharge Data Allergies Allergy/AdvReac Type Severity Reaction Status Date / Time bee venom protein (honey bee) Allergy Severe SWELLING Verified 09/06/20 12:35 SOB iodine Allergy Severe RASH; Verified 09/06/20 12:35 SHORTNESS OF BREATH codeine Allergy Intermediate SWELLING Verified 09/06/20 12:35 metformin Allergy Intermediate Diarrhea Verified 09/06/20 12:35 Penicillins Allergy Intermediate RASH/HIVES Verified 09/06/20 12:35 chocolate flavor Allergy Mild Diarrhea Verified 09/06/20 12:35 procaine Allergy Mild NOVOCAINE-R Verified 09/06/20 12:35 AKILAH Cephalosporins Allergy Unknown UNKNOWN Verified 09/06/20 12:35 clarithromycin Allergy Unknown Unknown Verified 09/06/20 12:35 shellfish derived Allergy Unknown Unknown Verified 09/06/20 12:35 metronidazole AdvReac Intermediate Nausea Verified 09/11/20 13:44 Consultations 09/06/20 11:44 ED Decision to Admit Stat 09/06/20 15:01 Consult General Surgery Routine Procedures Performed Operation Date: 09/09/20 07:30 Actual Procedures p Debridement of left ischial Decubitus down to muscle 4cm to 3cm(Left) - Deepak Bonilla, Ordered Studies 09/12/20 18:19 CT abd pelvis wo con Stat CT head/brain wo con Stat 09/16/20 13:00 FL video swallow Routine Hospital Course (1) Decubitus skin ulcer: Decubitus skin ulcer: Presented from [facility] due to concerns regarding worsening open wounds of left buttocks with concern for need for IV antibiotics and debridement Debridement of sacral wound was delayed initially due to acute CHF as below on 09/08 Now status post debridement in the OR on 09/09-appreciate surgery management Wound culture s all growing anaerobic gram neg rods-Bacteroides uniformis Blood cultures no growth to date Previously grew MSSA in bloodstream and from right chest wound and also has a history of Pseudomonas--> initially was on Cefepime and daptomycin in case of MRSA-both have since been discontinued -had significant nausea with starting Flagyl-discontinued Flagyl and now on Invanz -Started Invanz on 09/11 to cover for Bacteroides -plan is for Invanz through 09/21 for total of 10 days of coverage 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, will follow up in the wound clinic unfortunately, the wound vac cannot seal due to periwound fungal infection, macerated surrounding tissue discussed the difficult task of getting this wound to heal and also that it is unlikely with the patient and the family discussed that her protein intake is poor and she is weak and will be in bed a lot they understand, want to keep treating, follow up with wound clinic (2) Nausea: Started having significant nausea after starting metronidazole on 09/10- stopped Flagyl on 09/11 per patient's daughter, she had some nausea and vomiting at [facility] prior to admission restarted her usual lorazepam CT abd/pel no obstruction but with rectal fecal impaction-now resolved with multiple BMs 09/13 and 09/14 CT head negative Still with poor appetite and residual nausea, no response to Compazine for a few days tried Reglan 10mg IV, had a decent response, will make Reglan 10mg IV q6 scheduled for now -Cannot use Zofran due to QT prolongation -continue lorazepam scheduled once daily as this is how she usually takes it less nausea past three days, eating a little more continue Reglan 10mg ACHS to promote motility, not concerned about halfway side effects at this time (3) Aspiration into airway: had another episode of aspiration with taking pills on 09/15 has had this before in hospital, clears with cough Consult Speech- [facility] on 09/16 had silent aspiration with thin liquids, thick liquids very weak cough, does not cough on her own, even when cued to cough by speech therapy she did not do well discussed with patient and her family, they are in agreement with permissive aspiration, understand she is at risk of pneumonia changed to thin liquids should practice aspiration precautions, sit fully upright for 30 minutes after eating, no straws (4) CHF (congestive heart failure): With acute on chronic diastolic CHF and right-sided heart failure with flash pulmonary edema on 09/08 requiring IV Lasix and BiPAP Now much improved for the past week Is >90% on room air at rest Continue home Lasix 40 mg p.o. once daily overall she is 19kg less than two months ago Repeat chest x-ray on 09/09 with very small bilateral pleural effusions and pulmonary vascular congestion Follow daily weights, strict I's and O's, low-sodium diet Cr is stable as is K, BMP periodically (5) Atrial fibrillation: Paroxysmal atrial fibrillation Continue amiodarone 200 mg twice daily Continue digoxin 0.125 mg daily-repeat dig level performed 09/12 for nausea and is 0.8 Continue Toprol-XL 50 mg p.o. twice daily Is not on anticoagulation due to to recent previous history of severe acute bloo d loss anemia x 2 occasions (6) Diabetes mellitus, type 2: With hypoglycemia on 09/09 which is now improved Consult pharmacy for glycemic control Continue insulin management On Lantus 20 units daily at home, lower doses here Hemoglobin A1c here is only 5.4%- no insulin needed for several days, will stop Lantus on discharge (7) Anemia: Hemoglobin is stable at 9.0 for many days Had recent severe bleeding episodes requiring transfusions 1 month ago Follow CBC Avoiding anticoagulation (8) CKD (chronic kidney disease): Chronic kidney disease stage 4 Creatinine baseline 1.95-2.26 Creatinine 09/16 stable at 1.1 -Avoid nephrotoxins -renally dose meds when appropriate -follow BMP (9) Hypertension: Blood pressures are controlled Continue Toprol-XL (10) Asthma: No acute issues DuoNebs every 2 hours as needed (11) Anxiety: No acute issues, but seems more with depressed mood the last few days due to prolonged hospitalization Continue citalopram continue lorazepam daily (12) DVT prophylaxis: Heparin SQ Disposition-continued stay on PCU pending discharge to [facility], can go tomorrow Total Time Total Time Spent Total Time Spent (In Minutes): 36 Discharge Plan Discharge Items Patient Disposition: Transfer Detention Fac Reason For Visit: DECUBITUS ULCER NEEDING DEBRIDEMENT Discharge Diagnosis: Sacral decubitus ulcer Aspiration Malnutrition Atrial fibrillation WeaknessPlease follow up at the wound care center upon discharge #:[phone] [address], [address], [facility] [address] Condition on Discharge: Fair Goals: focus on improving nutrition improve strength and mobility use wound vac for sacral decubitus ulcer Activity: Resume your previous activity Weightbearing: Full weightbearing Non-emergency contact: Primary Care Provider Call non-emergency contact if: you have any medication questions, your symptoms worsen and you have a fever Follow-up/Referrals: Annabelle Bashir [Primary Care Provider] - Diet: Regular Addtl Attending Provider Instructions: Medications: ERTAPENEM: continue once daily until 09/21 METOCLOPRAMIDE: take 10mg ACHS for nausea, this has helped in the hospital past three days DIGOXIN: 125mcg daily for atrial fibrillation Sacral wound, debridement by general surgery, treated with Invanz, need 3 more days of treatment difficulty with wound vac, cannot obtain a seal due to periwound fungal infection, macerated tissue also patient with liquid stools, incontinence dress with Aquacell and optifoam follow up with wound clinic next week, see below Aspiration, malnutrition patient has been hospitalized or in SNF for several months, nutrition and strength have suffered video swallow showed silent aspiration of thin liquids but also thickened liquids discussed with patient and her family, they are okay with permissive aspiration as otherwise she cannot drink enough, thickened liquids make her gag even more regular diet, focus on getting protein, try protein shakes if possible Atrial fibrillation developed some RVR, rates 130-140, shortly after admission responded well to Digoxin IV, continue 125mcg PO not on anticoagulation due to h/o severe bleeding discussed difficult prognosis with patient and family on 09/17, patient wants to continue to fight her only goal is to get home with her she is at high risk of re-admission, will likely need palliative care in near future Addtl Ward Attendant Provider Instructions: Please follow up at the wound care center upon discharge #:[phone] [address], [address], [facility] [address] Pending Studies at Discharge: No Stand-Alone Forms: My [facility] Skilled Items Patient informed of condition?: Yes DNR: Yes Discharge Level of Care: Skilled Communicable Disease: No Discharge Prognosis: Stable Lines: Peripheral IV Urinary Catheter: Yes Medications and DC Order Prescriptions: New digoxin [Digitek] 125 mcg (0.125 mg) Tablet 0.125 mg PO DAILY@1600 30 Days Qty: 30 RF: 3 metoclopramide HCl 10 mg tablet 10 mg PO ACHS Qty: 60 RF: 1 Continued metoprolol succinate 50 mg tablet extended release 24 hr 50 mg PO BID RF: 0 ascorbic acid (vitamin C) 500 mg capsule 500 mg PO QAM RF: 0 acetaminophen 325 mg tablet 650 mg PO Q4H PRN (Reason: Pain/Temp) RF: 0 lorazepam [Ativan] 0.5 mg tablet 0.5 mg PO TID PRN (Reason: Anxiety) RF: 0 atorvastatin [Lipitor] 40 mg tablet 40 mg PO HS Qty: 90 RF: 3 (DME) lancets [OneTouch Delica Plus Lancet] 30 gauge misc See Rx Instructions .ROUTE .MEDSUPPLY Qty: 100 RF: 3 (DME) insulin syringe-needle U-100 [BD Insulin Syringe Ultra-Fine] 0.3 mL 31 gauge x 5/16" syringe See Rx Instructions .ROUTE .MEDSUPPLY Qty: 100 RF: 3 (DME) FreeStyle Vanessa 14 Day Sensor Kit See Rx Instructions .ROUTE .MEDSUPPLY Qty: 1 RF: 0 (DME) FreeStyle Vanessa 14 Day [place] Misc See Rx Instructions .ROUTE .MEDSUPPLY Qty: 1 RF: 0 nitroglycerin 0.4 mg tablet, sublingual 0.4 mg sublingual Q5M PRN (Reason: chest pain) Qty: 25 RF: 3 aspirin [Adult Aspirin Regimen] 81 mg tablet,delayed release (DR/EC) 81 mg PO QAM RF: 0 (DME) Lift Chair Misc See Rx Instructions .ROUTE .MEDSUPPLY Qty: 1 RF: 0 albuterol sulfate 2.5 mg /3 mL (0.083 %) solution for nebulization 2.5 mg INH QID PRN (Reason: SOB) RF: 0 amiodarone 200 mg Tablet 200 mg PO BID RF: 0 furosemide 40 mg tablet 40 mg PO QAM RF: 0 citalopram [Celexa] 40 mg tablet 40 mg PO HS RF: 0 pantoprazole [Protonix] 40 mg tablet,delayed release (DR/EC) 40 mg PO DAILYBB RF: 0 gabapentin [Neurontin] 600 mg tablet 300 mg PO HS RF: 0 sennosides-docusate sodium [Senokot-S] 8.6-50 mg Tablet 1 tab-cap PO QAM RF: 0 alum-mag hydroxide-simeth [Maalox Advanced] 200-200-20 mg/5 mL Suspension 30 ml PO Q6H PRN (Reason: Heartburn) RF: 0 Santyl 250 unit/gram Ointment 1 applic TOPICAL DAILY PRN (Reason: pressure injuries) RF: 0 Probiotic 10 billion cell Capsule 10,000 mmu cells PO TID RF: 0 potassium chloride [Klor-Con 10] 10 mEq tablet extended release 10 meq PO BID RF: 0 ipratropium bromide 0.03 % spray,non-aerosol 2 sprays INTNAS TID PRN (Reason: sinus congestion) RF: 0 Discontinued ondansetron HCl [Zofran] 4 mg tablet 4 mg PO Q6H PRN (Reason: Nausea) RF: 0 Lantus U-100 Insulin 100 unit/mL solution 20 unit subcut QAM RF: 0 Discharge Orders: Discharge Order (Routine); Ordered 09/18/20 Ordered By: Johan Siddiqi Admission Data Admit Date/Time: 09/06/20 12:26 Attending Provider: Johan Sdidiqi Admit Provider: Kofi Magallon Primary Care Provider: Annabelle Bashir Other Providers: Annabelle Bashir ; Kofi Magallon ; Deepak Bonilla Other Interventions: Discharge Summary Assessment (RN) Last Done: 09/18/20 15:58 Coding Level of Care Code D/C DAY MANAGEMENT >30 MINS Diagnoses Decubitus skin ulcer L89.220 Laterality: left Pressure injury location: hip Pressure injury stage: unstageable Nausea R11.0 Aspiration into airway T17.908A CHF (congestive heart failure) I50.9 Heart failure chronicity: unspecified Heart failure type: unspecified Atrial fibrillation I48.91 Diabetes mellitus, type 2 E11.9 Anemia D64.9 CKD (chronic kidney disease) N18.9 Chronic kidney disease stage: unspecified stage Hypertension I10 Asthma J45.909 Anxiety F41.9 DVT prophylaxis Z29.9
== END 2020-09-18 16:08 | DRG 570 ==
LOC: ED 10:26 → 3W 12:26 → SUATTDRO 12:26 → 3W 13:45 → 2S 09-08 09:10

== ENCOUNTER 2020-11-04 12:36 | Inpatient (IN) ==
--- NOTE | 2020-11-04 13:24 | Emergency Department Note ---
History of Present Illness General Chief complaint: Shortness of Breath/Dyspnea Time Seen by Provider: 11/04/20 13:05 Source: patient, RN notes reviewed and old records reviewed Mode of arrival: ambulatory Limitations: no limitations History of Present Illness Maximum Pain Intensity: 8 This patient is 80-year-old female who was sent over from [facility] after having increasing shortness of breath this morning. She is currently being treated for pneumonia and is on p.o. antibiotics. They gave her DuoNeb at 8:00 this morning also Ativan on 1030. She arrives on 4 L nasal cannula. She did have Covid in May and is back been back and forth in the hospital since then she has had A. fib with RVR. She is currently on no blood thinners. She was started on doxycycline a couple days ago for aspiration pneumonia. She also finished vancomycin recently for C. difficile. She has had melena for few days as well. She is had increasing short of breath dyspnea on exertion and oxygen need. Home Medications Medication Instructions Recorded Confirmed Type Lift Chair #1 ea 03/09/19 10/31/20 Rx aspirin 81 mg tablet,delayed 81 mg PO QAM 05/02/19 11/04/20 History release (Adult Aspirin Regimen) atorvastatin 40 mg tablet (Lipitor) 40 mg PO HS #90 tab 10/12/19 11/04/20 Rx lancets 30 gauge (OneTouch Delica #100 ea 11/15/19 10/31/20 Rx Plus Lancet) insulin syringe-needle U-100 0.3 #100 ea 01/29/20 10/31/20 Rx mL 31 gauge x 5/16" (BD Insulin Syringe Ultra-Fine) flash glucose sensor (FreeStyle #1 ea 03/14/20 10/31/20 Rx Vanessa 14 Day Sensor) flash glucose scanning reader #1 ea 03/26/20 10/31/20 Rx (FreeStyle Vanessa 14 Day [place]) nitroglycerin 0.4 mg sublingual 0.4 mg SUBLINGUAL Q5M PRN #25 tab 05/16/20 11/04/20 Rx tablet albuterol sulfate 2.5 mg INH QID PRN 06/23/20 11/04/20 History amiodarone 200 mg tablet 200 mg PO AMHS 07/30/20 11/04/20 History pantoprazole 40 mg tablet,delayed 40 mg PO DAILYBB 07/30/20 11/04/20 History release (Protonix) acetaminophen 325 mg tablet 650 mg PO Q4H PRN tab 09/06/20 11/04/20 History aluminum-mag hydroxide-simethicone 30 ml PO Q6H PRN 09/06/20 11/04/20 History 200 mg-200 mg-20 mg/5 mL oral susp (Maalox Advanced) ipratropium bromide 21 mcg (0.03 2 sprays INTNAS TID PRN 09/06/20 11/04/20 History %) nasal spray lorazepam 0.5 mg tablet (Ativan) 0.5 mg PO TID PRN 09/06/20 11/04/20 History metoprolol succinate 50 mg 50 mg PO BID tab 09/06/20 11/04/20 History tablet,extended release 24 hr potassium chloride 10 mEq 10 meq PO DAILY 09/06/20 11/04/20 History tablet,extended release (Klor-Con) ondansetron 4 mg disintegrating 4 mg PO Q6H PRN 10/03/20 11/04/20 History tablet famotidine 20 mg tablet 20 mg PO BID 10/11/20 11/04/20 History doxycycline hyclate 100 mg capsule 100 mg PO BID 10/31/20 11/04/20 History Lactobacillus acidoph-L.bulgaricus 1 tab PO TID 11/04/20 11/04/20 History 1 million cell tablet (Floranex) acetaminophen 500 mg tablet 500 mg PO TID MDD 3g 11/04/20 11/04/20 History arginine 7 gram-glutamine 7 1 ea PO BID 11/04/20 11/04/20 History gram-calcium HMB 1.5 gram oral powder pack (Lam) benzonatate 100 mg capsule 100 mg PO Q8 PRN 11/04/20 11/04/20 History calcium carbonate 600 mg(1,500 1 tab PO BID 11/04/20 11/04/20 History mg)-vitamin D3 800 unit chewable tablet (Caltrate 600 plus D) citalopram 20 mg tablet 20 mg PO HS 11/04/20 11/04/20 History digoxin 125 mcg (0.125 mg) tablet 0.125 mg PO .DAILY AT 1700 11/04/20 11/04/20 History (Digitek) ergocalciferol (vitamin D2) 1,250 1,250 mcg PO WK 11/04/20 11/04/20 History mcg (50,000 unit) capsule furosemide 40 mg tablet 40 mg PO QAM 11/04/20 11/04/20 History gabapentin 300 mg capsule 300 mg PO HS 11/04/20 11/04/20 History guaifenesin 100 mg/5 mL oral 200 mg PO TID 11/04/20 11/04/20 History liquid (Robafen) guaifenesin 100 mg/5 mL oral syrup 200 mg PO Q4H PRN 11/04/20 11/04/20 History ipratropium 0.5 mg-albuterol 3 mg 3 ml INHALATION QID 11/04/20 11/04/20 History (2.5 mg base)/3 mL nebulization soln metoclopramide HCl 10 mg tablet 10 mg PO ACHS PRN 11/04/20 11/04/20 History nystatin 100,000 unit/gram topical 1 applic TOPICAL BID 11/04/20 11/04/20 History powder (Nyamyc) ondansetron HCl 8 mg tablet 8 mg PO ONCE PRN 11/04/20 11/04/20 History sennosides 8.6 mg tablet (senna) 8.6 mg PO QAM 11/04/20 11/04/20 History Allergies Allergy/AdvReac Type Severity Reaction Status Date / Time bee venom protein (honey bee) Allergy Severe SWELLING Verified 11/04/20 13:35 SOB iodine Allergy Severe RASH; Verified 11/04/20 13:35 SHORTNESS OF BREATH codeine Allergy Intermediate SWELLING Verified 11/04/20 13:35 metformin Allergy Intermediate Diarrhea Verified 11/04/20 13:35 Penicillins Allergy Intermediate RASH/HIVES Verified 11/04/20 13:35 chocolate flavor Allergy Mild Diarrhea Verified 11/04/20 13:35 procaine Allergy Mild NOVOCAINE-R Verified 11/04/20 13:35 AIKLAH Cephalosporins Allergy Unknown UNKNOWN Verified 11/04/20 13:35 clarithromycin Allergy Unknown Unknown Verified 11/04/20 13:35 shellfish derived Allergy Unknown Unknown Verified 11/04/20 13:35 metronidazole AdvReac Intermediate Nausea Verified 11/04/20 13:35 Past Med/Surg History Medical History Anemia Anxiety Asthma RARELY NEEDS PRN INH Atrial fibrillation Paroxysmal, not on anticoagulation. Per cardio 12/25/15, "since she has not had a paroxysmal for many years, no therapy will be initiated today. Given her elevated CHADSVASC score, though, would recommend anticoagulation therapy if she were to develop any recurrent episodes of A. fib in the future." Breath shortness Chronic back pain Chronic chest pain Has been evaluated by cardio, ruled to be non-cardiac in origin. 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 HgA1C 6.6% 05/03/18 Diverticular disease Hiatal hernia History of right breast cancer S/P RT MASTECTOMY, + CHEMO/RADIATION Hypercholesteremia Hyperlipidemia Lower back pain Microscopic hematuria Migraine Morbid obesity Myocardial Infarction > 20 YEARS AGO Nonobstructive atherosclerosis of coronary artery Per cath 2008 Nontraumatic hematoma Osteoarthritis Pulmonary hypertension Symptomatic anemia Surgical History Fusion of spine History of appendectomy History of back surgery [place]ARD[place] PRESENT History of bilateral tubal ligation History of breast biopsy History of cardiac cath 2008 [facility] for chest pain. Non-obstructive CAD. "Non-cardiac chest pain." History of carpal tunnel release BL History of cataract surgery History of cholecystectomy History of dilatation and curettage History of hysterectomy History of partial gastrectomy History of right mastectomy NO BP/IV RUE History of tonsillectomy History of tooth extraction History of total knee replacement BL History of total shoulder replacement RT Family History Sister Family history of diabetes mellitus Breast cancer Daughter Family history of reaction to anesthesia SLOW TO WAKE UP Grandfather (Maternal) Myocardial infarction Denies family history of Ovarian cancer Prostate cancer Colorectal cancer Social History Smoking Status: Unknown if ever smoked Second Hand Exposure: No; Do You Dip or Chew Tobacco: No; Tobacco Cessation Education Requested by Patient: No Hx Alcohol Use: No Hx Substance Use: No Preferred Language: Bulgarian Communication Ability: Effective Visual Impairment: No Limitations Hearing Ability: Normal Furniture Manager Required: Yes Beliefs That Will Affect Care: None marital status: Current Living Situation: [place] Current Living Situation Comment: [facility]. 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 Other Information That Helps Us Care for You: No Feels Safe at Home: Yes Safety Concerns: Feels Safe At This Time Childhood Exposure to Second-Hand Smoke: No Dental Care, Regularly: No Physical Activity Frequency: Does not Exercise Seatbelt Use: always Sunscreen Use: No Assistive Devices: Oxygen - Continuous Review of Systems A total of 10 systems reviewed and were otherwise negative Physical Exam Vital Signs Vital Signs - 24 hr 11/04/20 12:43 11/04/20 12:48 11/04/20 13:27 Temperature 37 C Temperature Source Oral Pulse Rate 64 65 Pulse Rate [Left Finger] Pulse Rate from SpO2 Sensor 63 Pulse Rhythm Regular Pulse Strength Normal Respiratory Rate 23 28 H Respiratory Effort / Characteristics Spontaneous Labored Respiratory Depth Normal Respiratory Pattern Regular Blood Pressure 151/85 H 151/85 H Blood Pressure Mean 107 107 Blood Pressure Position Lying Pulse Oximetry 100 100 98 Oxygen Delivery Method Nasal Cannula Nasal Cannula Oxygen Flow Rate 4 6 Sepsis Recent Fever Within 48 Hours No Sepsis New/Unexplained Change in Mental Status N/A Sepsis Action Taken by Nursing No Action Required 11/04/20 13:35 11/04/20 13:37 11/04/20 13:48 Temperature Temperature Source Pulse Rate Pulse Rate [Left Finger] 64 Pulse Rate from SpO2 Sensor Pulse Rhythm Pulse Strength Respiratory Rate 22 24 Respiratory Effort / Characteristics Labored Spontaneous Labored Spontaneous Respiratory Depth Respiratory Pattern Regular Blood Pressure Blood Pressure Mean Blood Pressure Position Pulse Oximetry 98 100 Oxygen Delivery Method Nasal Cannula Nasal Cannula Oxygen Flow Rate 6 3 Sepsis Recent Fever Within 48 Hours Sepsis New/Unexplained Change in Mental Status Sepsis Action Taken by Nursing General: Well developed well nourished chronically ill appearing older female who is on oxygen but in no acute distress, breathing comfortably on room air. Normal speech HEENT: Normal cephalic atraumatic. Pupils are equal round and reactive to light. Extraocular movements are intact. Oropharynx is pink with moist mucous membranes. No swelling of the mouth lips or tongue. Neck: Supple with a midline trachea. No meningeal signs or stiffness, no JVD or bruits. No Stridor. Chest: Clear to auscultation bilaterally with some crackles in bases. No increased work of breathing. Heart: Regular rate and rhythm without murmurs or gallops. Abdomen: Soft nontender, nondistended without rebound guarding or rigidity. Extremities: No cyanosis clubbing or edema. No calf tenderness or assymetry Spine/Back. Non tender to palpation. No CVA tenderness Skin: Good turgor without rashes. Neurologic exam: Cranial nerves two through 12 are intact. Motor and sensation are intact and symmetrical throughout. Constitutional General: Well developed well nourished older female who is on supplemental oxygen in no acute distress, breathing comfortably on room air. Normal speech HEENT: Normal cephalic atraumatic. Pupils are equal round and reactive to light. Extraocular movements are intact. Oropharynx is pink with moist mucous membranes. No swelling of the mouth lips or tongue. Neck: Supple with a midline trachea. No meningeal signs or stiffness, no JVD or bruits. No Stridor. Chest: Clear to auscultation bilaterally. No wheezes or rhonchi. No increased work of breathing. Heart: Regular rate and rhythm without murmurs or gallops. Abdomen: Soft nontender, nondistended without rebound guarding or rigidity. Brown stool which was guaiac positive Extremities: No cyanosis clubbing or edema. No calf tenderness or assymetry Spine/Back. Non tender to palpation. No CVA tenderness Skin: Good turgor without rashes. Neurologic exam: Cranial nerves two through 12 are intact. Motor and sensation are intact and symmetrical throughout. Course Administered Medications Albuterol (Albuterol 0.083% Nebu Soln 3 Ml Vial) 2.5 mg INH QIDR [facility] Stop: 12/04/20 17:48 Last Admin: 11/04/20 19:18 Dose: Not Given Documented by: [id number] Admin: 11/04/20 18:22 Dose: 2.5 mg Documented by: [id number] Amiodarone HCl (Amiodarone 200 Mg Tab) [address] [facility] Stop: 12/04/20 20:59 Last Admin: 11/04/20 20:12 Dose: 200 mg Documented by: [id number] Atorvastatin Calcium (Atorvastatin 40 Mg Tab) 40 mg PO [facility] Stop: 12/04/20 20:59 Last Admin: 11/04/20 20:13 Dose: 40 mg Documented by: [id number] Citalopram Hydrobromide (Citalopram 20 Mg Tab) 20 mg PO [facility] Stop: 12/04/20 20:59 Last Admin: 11/04/20 20:13 Dose: 20 mg Documented by: [id number] Enoxaparin Sodium (Enoxaparin Inj 40 Mg/0.4 Ml Syr) 40 mg SQ DAILY@1800 ISAIAS Stop: 12/04/20 18:29 Last Admin: 11/04/20 20:11 Dose: 40 mg Documented by: [id number] Famotidine (Famotidine 20 Mg Tab) 20 mg PO BID ISAIAS Stop: 12/04/20 20:59 Last Admin: 11/04/20 20:14 Dose: 20 mg Documented by: [id number] Gabapentin (Gabapentin 300 Mg Cap) 300 mg PO HS ISAIAS Stop: 12/04/20 20:59 Last Admin: 11/04/20 20:14 Dose: 300 mg Documented by: [id number] Pantoprazole Sodium 40 mg/ (Syringe) 10 mls @ 5 mls/min IV BID ISAIAS Stop: 12/04/20 20:59 Last Admin: 11/04/20 20:34 Dose: 5 mls/min Documented by: [id number] Insulin Aspart (Insulin Aspart 100 Units/Ml 3 Ml Pen) 0 units SC ACHS ISAIAS Stop: 12/04/20 20:59 Last Admin: 11/04/20 20:51 Dose: Not Given Documented by: [id number] Nystatin (Nystatin Powder 15gm Btl) 1 appln EXT BID ISAIAS Stop: 12/04/20 20:59 Last Admin: 11/04/20 20:14 Dose: 1 appln Documented by: [id number] Discontinued Medications Albuterol (Albut/Ipratrop 3mg/0.5mg Neb 3 Ml Vial) 3 ml NEB NOW STA Stop: 11/04/20 13:33 Last Admin: 11/04/20 13:46 Dose: 3 ml Documented by: [id number] Furosemide (Furosemide 40 Mg/4 Ml Vial) 20 mg IV NOW STA Stop: 11/04/20 15:13 Last Admin: 11/04/20 15:25 Dose: 20 mg Documented by: [id number] Furosemide (Furosemide 40 Mg/4 Ml Vial) 20 mg IV NOW STA Stop: 11/04/20 16:07 Last Admin: 11/04/20 16:45 Dose: 20 mg Documented by: [id number] Guaifenesin (Guaifenesin Sugar Free 100 Mg/5 Ml Udc) 100 mg PO NOW STA Stop: 11/04/20 16:47 Last Admin: 11/04/20 17:54 Dose: Not Given Documented by: [id number] Pantoprazole Sodium 80 mg/ (Dextrose) 100 mls @ 400 mls/hr IV ONE STA Stop: 11/04/20 14:15 Last Admin: 11/04/20 15:17 Dose: Not Given Documented by: [id number] Cefepime HCl (Maxipime) 2,000 mg in 20 mls @ 5 mls/min IV NOW STA; Protocol Stop: 11/04/20 14:52 Last Admin: 11/04/20 15:17 Dose: 5 mls/min Documented by: [id number] Magnesium Sulfate/Dextrose (Magnesium Sulfate / D5w) 1 gm in 100 mls @ 100 mls/hr IV Q1H ISAIAS Stop: 11/04/20 16:54 Last Infusion: 11/04/20 17:32 Dose: 0 mls/hr Documented by: [id number] Admin: 11/04/20 16:23 Dose: 100 mls/hr Documented by: [id number] Infusion: 11/04/20 16:22 Dose: 0 mls/hr Documented by: [id number] Admin: 11/04/20 15:17 Dose: 100 mls/hr Documented by: [id number] Ondansetron HCl (Ondansetron Inj 2 Mg/Ml 2 Ml Vial) 4 mg IV NOW STA Stop: 11/04/20 13:33 Last Admin: 11/04/20 13:56 Dose: 4 mg Documented by: [id number] Medical Decision Making Differential Diagnosis Pneumonia, COPD, CHF, sepsis, Covid, arrhythmia, anemia, acute coronary syndrome, electrolyte or metabolic abnormality, anxiety Medical Records Attestation: I reviewed the patient's medical records. Home Medications Current Medication List: was personally reviewed by me Laboratory Data Attestation: I reviewed the patient's lab results. Result diagrams: 11/04/20 14:21 11/04/20 14:19 Lab Results 11/04/20 11/04/20 11/04/20 Range/Units 13:54 13:54 13:54 WBC (4.8-10.8) K/uL RBC (4.2-5.4) M/uL Hgb (12.0-16.0) g/dL Hct (37-47) % MCV (80-100) fL MCH (25-34) pg MCHC (32-36) g/dL RDW Std Deviation (36.4-46.3) fL RDW Coeff of Erin (11.5-14.5) % Plt Count (130-400) K/uL MPV (7.4-10.4) fL Immature Gran % (Auto) % Neut % (Auto) % Lymph % (Auto) % [place] % (Auto) % Eos % (Auto) % Baso % (Auto) % Neut # (Auto) (1.4-6.5) K/uL Lymph # (Auto) (1.2-3.4) K/uL [place] # (Auto) (0.11-0.59) K/uL Eos # (Auto) (0-0.5) K/uL Baso # (Auto) (0-0.2) K/uL Immature Gran # (Auto) (0.00-0.02) K/uL PT (9.0-12.0) Seconds INR (0.9-1.1) APTT (21.0-31.0) Seconds PTT Ratio Sodium (136-145) mmol/L Potassium (3.5-5.1) mmol/L Chloride (98-107) mmol/L Carbon Dioxide (21-32) mmol/L Anion Gap (3-11) BUN (7-18) mg/dl Creatinine (0.6-1.2) mg/dl Est Cr Clr Drug Dosing ml/min Est GFR ( Amer) ml/min Est GFR (Non-Af Amer) ml/min BUN/Creatinine Ratio (10-20) Glucose (70-99) mg/dl Lactate (0.4-2.0) mmol/L Calcium (8.5-10.1) mg/dl Phosphorus (2.5-4.9) mg/dl Magnesium (1.8-2.4) mg/dl Total Bilirubin (0.2-1) mg/dl AST (15-37) U/L ALT (12-78) U/L Alkaline Phosphatase (45-117) U/L Troponin I (0-0.045) ng/ml NT-Pro-B Natriuret Pep (0-1800) pg/ml Total Protein (6.4-8.2) gm/dl Albumin (3.4-5.0) gm/dl Globulin (2.5-4.0) gm/dl Albumin/Globulin Ratio (0.9-2) Procalcitonin (0-0.5) ng/ml Nasal Screen MRSA (PCR) Negative (Negative) Digoxin (0.8-2.0) ng/ml COVID-19 Eval Order Covid19 at [facility] SARS-CoV-2 (PCR) NEGATIVE (Negative) Blood Type Antibody Screen 11/04/20 11/04/20 11/04/20 Range/Units 14:19 14:19 14:19 WBC (4.8-10.8) K/uL RBC (4.2-5.4) M/uL Hgb (12.0-16.0) g/dL Hct (37-47) % MCV (80-100) fL MCH (25-34) pg MCHC (32-36) g/dL RDW Std Deviation (36.4-46.3) fL RDW Coeff of Erin (11.5-14.5) % Plt Count (130-400) K/uL MPV (7.4-10.4) fL Immature Gran % (Auto) % Neut % (Auto) % Lymph % (Auto) % [place] % (Auto) % Eos % (Auto) % Baso % (Auto) % Neut # (Auto) (1.4-6.5) K/uL Lymph # (Auto) (1.2-3.4) K/uL [place] # (Auto) (0.11-0.59) K/uL Eos # (Auto) (0-0.5) K/uL Baso # (Auto) (0-0.2) K/uL Immature Gran # (Auto) (0.00-0.02) K/uL PT 10.9 (9.0-12.0) Seconds INR 1.1 (0.9-1.1) APTT 25.6 (21.0-31.0) Seconds PTT Ratio 1.0 Sodium 141 (136-145) mmol/L Potassium 4.0 (3.5-5.1) mmol/L Chloride 108 H (98-107) mmol/L Carbon Dioxide 27 (21-32) mmol/L Anion Gap 6.0 (3-11) BUN 18 (7-18) mg/dl Creatinine 1.07 (0.6-1.2) mg/dl Est Cr Clr Drug Dosing 50.3 ml/min Est GFR ( Amer) 56.4 ml/min Est GFR (Non-Af Amer) 48.6 ml/min BUN/Creatinine Ratio 17.0 (10-20) Glucose 111 H (70-99) mg/dl Lactate (0.4-2.0) mmol/L Calcium 8.0 L (8.5-10.1) mg/dl Phosphorus 3.3 (2.5-4.9) mg/dl Magnesium 1.6 L (1.8-2.4) mg/dl Total Bilirubin 0.4 (0.2-1) mg/dl AST 12 L (15-37) U/L ALT 14 (12-78) U/L Alkaline Phosphatase 104 (45-117) U/L Troponin I < 0.015 (0-0.045) ng/ml NT-Pro-B Natriuret Pep 6536 H (0-1800) pg/ml Total Protein 5.8 L (6.4-8.2) gm/dl Albumin 2.1 L (3.4-5.0) gm/dl Globulin 3.7 (2.5-4.0) gm/dl Albumin/Globulin Ratio 0.6 L (0.9-2) Procalcitonin (0-0.5) ng/ml Nasal Screen MRSA (PCR) (Negative) Digoxin (0.8-2.0) ng/ml COVID-19 Eval Order SARS-CoV-2 (PCR) (Negative) Blood Type A Positive Antibody Screen NEGATIVE 11/04/20 11/04/20 11/04/20 Range/Units 14:19 14:19 14:19 WBC (4.8-10.8) K/uL RBC (4.2-5.4) M/uL Hgb (12.0-16.0) g/dL Hct (37-47) % MCV (80-100) fL MCH (25-34) pg MCHC (32-36) g/dL RDW Std Deviation (36.4-46.3) fL RDW Coeff of Erin (11.5-14.5) % Plt Count (130-400) K/uL MPV (7.4-10.4) fL Immature Gran % (Auto) % Neut % (Auto) % Lymph % (Auto) % [place] % (Auto) % Eos % (Auto) % Baso % (Auto) % Neut # (Auto) (1.4-6.5) K/uL Lymph # (Auto) (1.2-3.4) K/uL [place] # (Auto) (0.11-0.59) K/uL Eos # (Auto) (0-0.5) K/uL Baso # (Auto) (0-0.2) K/uL Immature Gran # (Auto) (0.00-0.02) K/uL PT (9.0-12.0) Seconds INR (0.9-1.1) APTT (21.0-31.0) Seconds PTT Ratio Sodium (136-145) mmol/L Potassium (3.5-5.1) mmol/L Chloride (98-107) mmol/L Carbon Dioxide (21-32) mmol/L Anion Gap (3-11) BUN (7-18) mg/dl Creatinine (0.6-1.2) mg/dl Est Cr Clr Drug Dosing ml/min Est GFR ( Amer) ml/min Est GFR (Non-Af Amer) ml/min BUN/Creatinine Ratio (10-20) Glucose (70-99) mg/dl Lactate 0.7 (0.4-2.0) mmol/L Calcium (8.5-10.1) mg/dl Phosphorus (2.5-4.9) mg/dl Magnesium (1.8-2.4) mg/dl Total Bilirubin (0.2-1) mg/dl AST (15-37) U/L ALT (12-78) U/L Alkaline Phosphatase (45-117) U/L Troponin I (0-0.045) ng/ml NT-Pro-B Natriuret Pep (0-1800) pg/ml Total Protein (6.4-8.2) gm/dl Albumin (3.4-5.0) gm/dl Globulin (2.5-4.0) gm/dl Albumin/Globulin Ratio (0.9-2) Procalcitonin 0.33 (0-0.5) ng/ml Nasal Screen MRSA (PCR) (Negative) Digoxin 2.1 H (0.8-2.0) ng/ml COVID-19 Eval Order SARS-CoV-2 (PCR) (Negative) Blood Type Antibody Screen 11/04/20 Range/Units 14:21 WBC 7.47 (4.8-10.8) K/uL RBC 3.48 L (4.2-5.4) M/uL Hgb 9.9 L (12.0-16.0) g/dL Hct 32.7 L (37-47) % MCV 94.0 (80-100) fL MCH 28.4 (25-34) pg MCHC 30.3 L (32-36) g/dL RDW Std Deviation 54.0 H (36.4-46.3) fL RDW Coeff of Erin 15.8 H (11.5-14.5) % Plt Count 319 (130-400) K/uL MPV 9.6 (7.4-10.4) fL Immature Gran % (Auto) 0.3 % Neut % (Auto) 70.8 % Lymph % (Auto) 17.9 % [place] % (Auto) 7.8 % Eos % (Auto) 2.9 % Baso % (Auto) 0.3 % Neut # (Auto) 5.29 (1.4-6.5) K/uL Lymph # (Auto) 1.34 (1.2-3.4) K/uL [place] # (Auto) 0.58 (0.11-0.59) K/uL Eos # (Auto) 0.22 (0-0.5) K/uL Baso # (Auto) 0.02 (0-0.2) K/uL Immature Gran # (Auto) 0.02 (0.00-0.02) K/uL PT (9.0-12.0) Seconds INR (0.9-1.1) APTT (21.0-31.0) Seconds PTT Ratio Sodium (136-145) mmol/L Potassium (3.5-5.1) mmol/L Chloride (98-107) mmol/L Carbon Dioxide (21-32) mmol/L Anion Gap (3-11) BUN (7-18) mg/dl Creatinine (0.6-1.2) mg/dl Est Cr Clr Drug Dosing ml/min Est GFR ( Amer) ml/min Est GFR (Non-Af Amer) ml/min BUN/Creatinine Ratio (10-20) Glucose (70-99) mg/dl Lactate (0.4-2.0) mmol/L Calcium (8.5-10.1) mg/dl Phosphorus (2.5-4.9) mg/dl Magnesium (1.8-2.4) mg/dl Total Bilirubin (0.2-1) mg/dl AST (15-37) U/L ALT (12-78) U/L Alkaline Phosphatase (45-117) U/L Troponin I (0-0.045) ng/ml NT-Pro-B Natriuret Pep (0-1800) pg/ml Total Protein (6.4-8.2) gm/dl Albumin (3.4-5.0) gm/dl Globulin (2.5-4.0) gm/dl Albumin/Globulin Ratio (0.9-2) Procalcitonin (0-0.5) ng/ml Nasal Screen MRSA (PCR) (Negative) Digoxin (0.8-2.0) ng/ml COVID-19 Eval Order SARS-CoV-2 (PCR) (Negative) Blood Type Antibody Screen Imaging Data Attestation: I personally reviewed and interpreted this imaging study as follows: My Impression: Chest x-raycardiomegaly with congestive heart failure changes. There are bilateral infiltrates in the bases mostly on the right Radiologist's Impression: Chest X-Ray 11/04/20 13:27 SINGLE VIEW CHEST CLINICAL HISTORY: Dyspnea. FINDINGS: An AP, portable, upright chest radiograph is compared to study dated 09/12/2020. The examination is degraded by portable technique and patient rotation. The heart is enlarged noting atherosclerotic calcification of the thoracic aorta. There is pulmonary vascular congestion. Bilateral airspace opacities likely representing pulmonary edema. There are small pleural effusions with bibasilar consolidation. No pneumothorax is seen. The skeletal structures are osteopenic. The bony thorax is grossly intact. Degenerative change is noted in the shoulders and thoracic spine. Surgical clips project over the upper abdomen. IMPRESSION: 1. Cardiomegaly with evidence of congestive failure. 2. Bilateral airspace opacities likely represent pulmonary edema. Correlate clinically for evidence of a superimposed infectious/inflammatory pneumonitis. 3. Small pleural effusions with bibasilar consolidation. ACT 112: Negative or not required by law. Electronically signed by: Vinay Eubanks M.D. 11/04/2020 2:45 PM ECG Data Attestation: I personally reviewed and interpreted this ECG as follows: Indication: + SOB/dyspnea Rate (beats per minute): 68 Rhythm: + atrial fibrillation ECG Intervals/blocks: + Normal QRS and + Normal QT ECG Ranger: + Normal ECG ST segments: + Nonspecific ST abnormalities ECG Findings: no PACs or no PVCs Comparison ECG Date: from (09/12/20) Change: the following changes noted (Rate has decreased otherwise was no significant) MDM Narrative This patient comes in as described above she was [facility] she apparently is being treated for pneumonia she had shortness of breath this morning. Upon arrival she is nonhypoxemic with O2 sat 100% on 4 L. IV access was established blood work was obtained. EKG and chest x-ray were obtained. She was seen in conjunction with my resident, Jatin. He did do a rectal exam and the stool was brown guaiac positive. There is concern for ongoing GI bleed and she was started on IV Protonix. Chest x-ray shows likely infiltrate and or failure. The concern was for fluid overload as well. EKG shows baseline A. fib. She is not on anticoagulation. Her white count is not elevated nor is her lactic acid. Her troponin is normal and she has no chest pain. Her BNP was significantly elevated. Although initially I was more concerned about pneumonia I think this is likely more CHF given her work-up with her x-ray and elevated BNP and her inflammatory markers looking normal. She was given Lasix 20 mg IV she will need further treatment and evaluation. There is concern for heme positive stool as well. She was admitted to the [facility] hospitalist team Continuous cardiac monitoring: Orders placed in EMR for continuous cardiac monitoring. upon my interpretation the patient was noted to be atrial fibrillation with a rate controlled rate of 80 Impression & Plan CHF (congestive heart failure), SOB (shortness of breath), Atrial fibrillation, Heme positive stool, Weakness Discharge Plan Visit Data Chief Complaint: Shortness of Breath/Dyspnea ED Provider: Fabio Jade ED Midlevel Provider: Tadeo López Discharge Problem: CHF (congestive heart failure), SOB (shortness of breath), Atrial fibrillation, Heme positive stool, Weakness Patient Disposition: Admitted As Inpatient Discharge Instructions Interventions: ED Discharge Assessment Last Done: 11/04/20 17:13
[2020-11-04] MEDS ORDERED: ALBUT/IPRATROP 3MG/0.5MG NEB 3 ML VIAL NEB STA (13:32)
[2020-11-04] MEDS ORDERED: ONDANSETRON INJ 2 MG/ML 2 ML VIAL IV STA (13:32)
--- NOTE | 2020-11-04 13:49 | Communication Note ---
Date of Service: November 04, 2020 I personally saw the patient. Patient's case was discussed with Dr. Jade, ED attending, and I participated in MDM. Please see attending documentation for full details.
[2020-11-04] MEDS ORDERED: PANTOprazole 80 MG in DEXTROSE 5% 100 ML IV STA (14:01)
[2020-11-04 14:42] LABS: INR 1.1 (0.9-1.1); Partial Thromboplastin Time 25.6 Seconds (21.0-31.0); Prothrombin Time 10.9 Seconds (9.0-12.0)
[2020-11-04 14:47] LABS: Alanine Aminotransferase 14 U/L (12-78); Albumin Level 2.1 gm/dl (3.4-5.0); Aspartate Aminotransferase 12 U/L (15-37); Blood Urea Nitrogen 18 mg/dl (7-18); Carbon Dioxide 27 mmol/L (21-32); Chloride 108 mmol/L (98-107); Creatinine Clr Calc Pharmacy 50.3 ml/min; Est GFR (African American) 56.4 ml/min; Est GFR (Non-African American) 48.6 ml/min; Glucose 111 mg/dl (70-99); Magnesium 1.6 mg/dl (1.8-2.4); Sodium 141 mmol/L (136-145)
--- NOTE | 2020-11-04 14:47 | XRay Report ---
SINGLE VIEW CHEST CLINICAL HISTORY: Dyspnea. FINDINGS: An AP, portable, upright chest radiograph is compared to study dated 09/12/2020. The examina tion is degraded by portable technique and patient rotation. The heart is enlarged noting atheroscler otic calcification of the thoracic aorta. There is pulmonary vascular congestion. Bilateral airspace opacities likely representing pulmonary edema. There are small pleural effusions with bibasilar conso lidation. No pneumothorax is seen. The skeletal structures are osteopenic. The bony thorax is grossly intact. Degenerative change is noted in the shoulders and thoracic spine. Surgical clips project ove r the upper abdomen. IMPRESSION: 1. Cardiomegaly with evidence of congestive failure. 2. Bilateral airspace opacities likely represent pulmonary edema. Correlate clinically for evidence o f a superimposed infectious/inflammatory pneumonitis. 3. Small pleural effusions with bibasilar consolidation. ACT 112: Negative or not required by law. Electronically signed by: Vinay Eubanks M.D. 11/04/2020 2:45 PM
[2020-11-04] MEDS ORDERED: CEFEPIME 2,000 MG/20 ML VIAL IV STA (14:49)
[2020-11-04 14:53] LABS: Albumin Globulin Ratio 0.6 (0.9-2); Alkaline Phosphatase 104 U/L (45-117); Bilirubin,Total 0.4 mg/dl (0.2-1); Globulin 3.7 gm/dl (2.5-4.0); NT Pro B Type Natriuretic Pept 6536 pg/ml (0-1800); Phosphorus 3.3 mg/dl (2.5-4.9); Total Protein 5.8 gm/dl (6.4-8.2); Troponin I < 0.015 ng/ml (0-0.045)
[2020-11-04 15:03] LABS: Basophils # (auto) 0.02 K/uL (0-0.2); Basophils % (auto) 0.3 %; Eosinophils # (auto) 0.22 K/uL (0-0.5); Eosinophils % (auto) 2.9 %; Hematocrit (blood only) 32.7 % (37-47); Hemoglobin 9.9 g/dL (12.0-16.0); Immature Granulocytes # (auto) 0.02 K/uL (0.00-0.02); Immature Granulocytes % (auto) 0.3 %; Lymphocytes # (auto) 1.34 K/uL (1.2-3.4); Lymphocytes % (auto) 17.9 %; Mean Corpuscular Hemoglobin 28.4 pg (25-34); Mean Corpuscular Hgb Conc 30.3 g/dL (32-36); Mean Platelet Volume 9.6 fL (7.4-10.4); Monocytes # (auto) 0.58 K/uL (0.11-0.59); Monocytes % (auto) 7.8 %; Neutrophils # (auto) 5.29 K/uL (1.4-6.5); Neutrophils % (auto) 70.8 %; Platelet Count 319 K/uL (130-400); RDW Coefficient of Variation 15.8 % (11.5-14.5); Red Blood Count 3.48 M/uL (4.2-5.4); White Blood Count 7.47 K/uL (4.8-10.8)
[2020-11-04] MEDS ORDERED: FUROSEMIDE 40 MG/4 ML VIAL IV STA ×2 (15:12→16:06)
[2020-11-04] MEDS: MAGNESIUM SULFATE / D5W 1 GM/100 ML BAG IV SCH ×2 (15:17→16:23)
[2020-11-04] MEDS ORDERED: guaiFENesin SUGAR FREE 100 MG/5 ML UDC PO STA (16:46)
--- NOTE | 2020-11-04 16:58 | History & Physical Report ---
Date of Service November 04, 2020 Assessment & Plan (1) SOB (shortness of breath): Plan: Multi focal - CHF, aspiration pneumonitis, - Currently favorig primary volume overload- continue to diurese - WBC normal with no elevation to NLR, PCT-0.33- - Recieved dose of Cefepime in EMD- as above no fevers, normal WBC- if primary pneumonitis without loculated effusion will defer ABX at this time - Follow clinical presentation - For hypoxia-- NC, HFNC, CPAP/BiPAP for tachypnea/hypoxia as needed - Flutter valve QID, Cough assist with vest/CHest PT/Metaneb- QID to avoid mucous plugging - Continue inhalers - would like to evaluate chest for CTA but likely unable to lay flat- will repeat venous Doppler of the legs to r/0 possibility of PE. (2) Aspiration pneumonitis: Plan: As above- follow clinically- her sputum is thin and white - cough suppressant for coughing spells - chest pt, flutter valve - minced and moist diet - sit upright while feeding - no straws, medication delivered in carrier per nursing (3) CHF (congestive heart failure): Plan: Acute on chronic- BNP 6536 continues to increase from last admission - continue to diurese tonight with another 40mg IV Lasix at 2100 - re-evaluate in the morning- unsure of dry weight - goal for 24 hours 750ml - 1Liter negative tomorrow - ECHO - last ECHO in 07/03/20- ECHO 55-60%, Left ventricular wall normal, moderate MR - Noted RSVP 30-40- does not wear CPAP/BiPAP at home - Hold Metoprolol for now - Dig on hold with recheck Dig level in the morning- currently 2.1 (4) Atrial fibrillation: Plan: Currently rate controlled - continue amiodarone - hold metoprolol and digoxin as above (5) Hypertension: (6) Hyperlipidemia: Plan: As above (7) Asthma: Plan: As above- continue chest phsyotheray, respiratory support, and inhalers (8) Black stool: Plan: Reported however appears chronic - She is normocytic normochromic on admission and HGB levels are higher than they have been - Protonix 40mg IV BID- follow CBC- adjust therapy as warranted (9) Lower back pain: Plan: Chronic- history of compression fracture - continue tylenol for pain (10) Anemia: Plan: As above normocytic normochromic- AOCD likely follow (11) Hypomagnesemia: Plan: Continue with repletion started in the EMD- 2GM - check BMP in the morning - likely related to decrease PO intake (12) Decubitus skin ulcer: Plan: Continue to offload as applicable- difficult secondary to her needing to sit up for her dyspnea - wound care consultation for re-application of woundvac/need/dressings - appreciate their assistance (13) Surgical wound, non healing: Plan: Continue with aquacell AG daily to right breast History of Present Illness Chief Complaint: SOB Primary Care Provider: [facility] 80 YOF with past medical history of - CHF, CKD III, Afib (not on anticoagulation), MSSA, HTN, HLD, anxiety, Asthma, DM, anemia, ARF with hypoxemia, HTN emergency, aspirations, PNA, right breast wound and left buttocks wound. The patient is over at the [facility] for rehab following her admission for COVID in May, she subsequently developed atrial fibrillation at that time requiring cardioversion and Amiodarone drip. She was originally anticoagulated, but this was discontinued after she had a large spontaneous gluteal hematoma, as well as MSSA infection to her right breast, where she was transferred to [facility] to have IR drainage of large seroma. Since that time she has been in and out of the hospital for increasing dyspnea and CHF. She did have negative Ultrasounds of her lower extremity and and ECHO done in July with EF 55-60% and mild to moderate MR and mild TR. The patient was also seen at the wound care clinic on 10/31/20 with increasing dyspnea and hypoxia and declined to come to the emergency room at that time. She was reportedly diagnosed with a pneumonia in that time and was started on Doxycycline. Patient comes to the EMD today for continued increase in dyspnea and orthopnea, she is currently on continued oxygen at 3-4 liters. Also reports of melena for the past 2-3 days and was Hemoccult positive in the EMD, her HGB level is stable and actuallly better than it has been in the past. She is not tachycardic and her BP is well within her normal range. Patient will be admitted for CHF exacerbation and continued evaluation of her dyspnea. In the EMD she had a CXR done that showed cardiomegally with vascular congestion and bilateral opacities, she did have a swallow study performed in August that showed multiple episodes of silent tracheal aspiration with thin liquids.. Patient will be admitted to continue with pulmonary toileting and diuresing. Will give an additional 20mg IV lasix to total 40 mg IV lasix prior to admission. Repeat her venous Doppler for evaluation of DVT as she is unlikely at this time to be able to lay flat for CTA of the chest. Allergies Allergy/AdvReac Type Severity Reaction Status Date / Time bee venom protein (honey bee) Allergy Severe SWELLING Verified 11/04/20 13:35 SOB iodine Allergy Severe RASH; Verified 11/04/20 13:35 SHORTNESS OF BREATH codeine Allergy Intermediate SWELLING Verified 11/04/20 13:35 metformin Allergy Intermediate Diarrhea Verified 11/04/20 13:35 Penicillins Allergy Intermediate RASH/HIVES Verified 11/04/20 13:35 chocolate flavor Allergy Mild Diarrhea Verified 11/04/20 13:35 procaine Allergy Mild NOVOCAINE-R Verified 11/04/20 13:35 AKILAH Cephalosporins Allergy Unknown UNKNOWN Verified 11/04/20 13:35 clarithromycin Allergy Unknown Unknown Verified 11/04/20 13:35 shellfish derived Allergy Unknown Unknown Verified 11/04/20 13:35 metronidazole AdvReac Intermediate Nausea Verified 11/04/20 13:35 Home Medications Medication Instructions Recorded Confirmed Type Lift Chair #1 ea 03/09/19 10/31/20 Rx aspirin 81 mg tablet,delayed 81 mg PO QAM 05/02/19 11/04/20 History release (Adult Aspirin Regimen) atorvastatin 40 mg tablet (Lipitor) 40 mg PO HS #90 tab 10/12/19 11/04/20 Rx lancets 30 gauge (OneTouch Delica #100 ea 11/15/19 10/31/20 Rx Plus Lancet) insulin syringe-needle U-100 0.3 #100 ea 01/29/20 10/31/20 Rx mL 31 gauge x 5/16" (BD Insulin Syringe Ultra-Fine) flash glucose sensor (FreeStyle #1 ea 03/14/20 10/31/20 Rx Vanessa 14 Day Sensor) flash glucose scanning reader #1 ea 03/26/20 10/31/20 Rx (FreeStyle Vanessa 14 Day [place]) nitroglycerin 0.4 mg sublingual 0.4 mg SUBLINGUAL Q5M PRN #25 tab 05/16/20 11/04/20 Rx tablet albuterol sulfate 2.5 mg INH QID PRN 06/23/20 11/04/20 History amiodarone 200 mg tablet 200 mg PO AMHS 07/30/20 11/04/20 History pantoprazole 40 mg tablet,delayed 40 mg PO DAILYBB 07/30/20 11/04/20 History release (Protonix) acetaminophen 325 mg tablet 650 mg PO Q4H PRN tab 09/06/20 11/04/20 History aluminum-mag hydroxide-simethicone 30 ml PO Q6H PRN 09/06/20 11/04/20 History 200 mg-200 mg-20 mg/5 mL oral susp (Maalox Advanced) ipratropium bromide 21 mcg (0.03 2 sprays INTNAS TID PRN 09/06/20 11/04/20 History %) nasal spray lorazepam 0.5 mg tablet (Ativan) 0.5 mg PO TID PRN 09/06/20 11/04/20 History metoprolol succinate 50 mg 50 mg PO BID tab 09/06/20 11/04/20 History tablet,extended release 24 hr potassium chloride 10 mEq 10 meq PO DAILY 09/06/20 11/04/20 History tablet,extended release (Klor-Con) ondansetron 4 mg disintegrating 4 mg PO Q6H PRN 10/03/20 11/04/20 History tablet famotidine 20 mg tablet 20 mg PO BID 10/11/20 11/04/20 History doxycycline hyclate 100 mg capsule 100 mg PO BID 10/31/20 11/04/20 History Lactobacillus acidoph-L.bulgaricus 1 tab PO TID 11/04/20 11/04/20 History 1 million cell tablet (Floranex) acetaminophen 500 mg tablet 500 mg PO TID MDD 3g 11/04/20 11/04/20 History arginine 7 gram-glutamine 7 1 ea PO BID 11/04/20 11/04/20 History gram-calcium HMB 1.5 gram oral powder pack (Lam) benzonatate 100 mg capsule 100 mg PO Q8 PRN 11/04/20 11/04/20 History calcium carbonate 600 mg(1,500 1 tab PO BID 11/04/20 11/04/20 History mg)-vitamin D3 800 unit chewable tablet (Caltrate 600 plus D) citalopram 20 mg tablet 20 mg PO HS 11/04/20 11/04/20 History digoxin 125 mcg (0.125 mg) tablet 0.125 mg PO .DAILY AT 1700 11/04/20 11/04/20 History (Digitek) ergocalciferol (vitamin D2) 1,250 1,250 mcg PO WK 11/04/20 11/04/20 History mcg (50,000 unit) capsule furosemide 40 mg tablet 40 mg PO QAM 11/04/20 11/04/20 History gabapentin 300 mg capsule 300 mg PO HS 11/04/20 11/04/20 History guaifenesin 100 mg/5 mL oral 200 mg PO TID 11/04/20 11/04/20 History liquid (Robafen) guaifenesin 100 mg/5 mL oral syrup 200 mg PO Q4H PRN 11/04/20 11/04/20 History ipratropium 0.5 mg-albuterol 3 mg 3 ml INHALATION QID 11/04/20 11/04/20 History (2.5 mg base)/3 mL nebulization soln metoclopramide HCl 10 mg tablet 10 mg PO ACHS PRN 11/04/20 11/04/20 History nystatin 100,000 unit/gram topical 1 applic TOPICAL BID 11/04/20 11/04/20 History powder (Nyamyc) ondansetron HCl 8 mg tablet 8 mg PO ONCE PRN 11/04/20 11/04/20 History sennosides 8.6 mg tablet (senna) 8.6 mg PO QAM 11/04/20 11/04/20 History Past Med/Surg History Medical History Anemia Anxiety Asthma RARELY NEEDS PRN INH Atrial fibrillation Paroxysmal, not on anticoagulation. Per cardio 12/25/15, "since she has not had a paroxysmal for many years, no therapy will be initiated today. Given her elevated CHADSVASC score, though, would recommend anticoagulation therapy if she were to develop any recurrent episodes of A. fib in the future." Breath shortness Chronic back pain Chronic chest pain Has been evaluated by cardio, ruled to be non-cardiac in origin. 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 HgA1C 6.6% 05/03/18 Diverticular disease Hiatal hernia History of right breast cancer S/P RT MASTECTOMY, + CHEMO/RADIATION Hypercholesteremia Hyperlipidemia Lower back pain Microscopic hematuria Migraine Morbid obesity Myocardial Infarction > 20 YEARS AGO Nonobstructive atherosclerosis of coronary artery Per cath 2008 Nontraumatic hematoma Osteoarthritis Pulmonary hypertension Symptomatic anemia Surgical History Fusion of spine History of appendectomy History of back surgery [place]ARD[place] PRESENT History of bilateral tubal ligation History of breast biopsy History of cardiac cath 2008 [facility] for chest pain. Non-obstructive CAD. "Non-cardiac chest pain." History of carpal tunnel release BL History of cataract surgery History of cholecystectomy History of dilatation and curettage History of hysterectomy History of partial gastrectomy History of right mastectomy NO BP/IV RUE History of tonsillectomy History of tooth extraction History of total knee replacement BL History of total shoulder replacement RT Family History Sister Family history of diabetes mellitus Breast cancer Daughter Family history of reaction to anesthesia SLOW TO WAKE UP Grandfather (Maternal) Myocardial infarction Denies family history of Ovarian cancer Prostate cancer Colorectal cancer Social History Smoking Status: Unknown if ever smoked Second Hand Exposure: No; Do You Dip or Chew Tobacco: No; Tobacco Cessation Education Requested by Patient: No Hx Alcohol Use: No Hx Substance Use: No Preferred Language: Croatian Communication Ability: Effective Visual Impairment: No Limitations Hearing Ability: Normal Conference Services Manager Required: Yes Beliefs That Will Affect Care: None marital status: Current Living Situation: [facility] Current Living Situation Comment: [facility]. current occupational status: retired current occupation: retired [employer] from [employer] Other Information That Helps Us Care for You: No Feels Safe at Home: Yes Safety Concerns: Feels Safe At This Time Childhood Exposure to Second-Hand Smoke: No Dental Care, Regularly: No Physical Activity Frequency: Does not Exercise Seatbelt Use: always Sunscreen Use: No Assistive Devices: Oxygen - Continuous Review of Systems Review of Systems: REVIEW OF SYSTEMS: Constitutional: No fever, sweats or chills Eyes: No diplopia, no worsening or blurred vision ENT: normal hearing, no trouble swallowing Respiratory: (+) cough, sputum, dyspnea at rest and on exertion Cardiovascular: No chest pain, tightness or palpitations Abdomen: No pain, nausea, vomiting, diarrhea or constipation Musculoskeletal: No joint pain, calf pain, swelling Neurologic: No weakness, numbness/tingling, or balance problems Psychiatric: No anxiety or depression Skin: (+) ulcerations right breast and left buttocks Physical Exam Physical Exam: PHYSICAL EXAM: General: awake, alert, no apparent distress Head: Normocephalic, atraumatic ENT: PERRL, EOMI, no pharyngeal exudate, mucous membranes moist Neuro: AAO x 3, speech clear and appropriate, strength intact bilaterally 5/5, sensation intact and equal all extremities and dermatomes, no pronator drift Chest: equal rise and fall of the chest, no accessory muscle use, no heaves or thrills, scattered crackles throughout, decreased in bases bilaterally, on 3LNC Cardiac: Regular rate and rhythm, telemetry reviewed, skin warm dry, cap refill <3 seconds, peripheral pulses +2 no JVD, no murmur, no edema GI: NABS x 4 quadrants, soft, nontender to palpation, no rebound, guarding or tenderness : Spontaneously voiding into purewick, no pain, no CVA tenderness, Extremities: Normal inspection, no peripheral edema or erythema, calfs nontender to palpation Psych: Normal mood and affect Skin: as Per HPI, dressing clean and dry to right breast, buttocks wound vac removed on arrival to [facility], covered with aquacell AG and gauze- surrounding tissue intact Results & Data Results & Data ([facility]) Vital Signs (Past 12 Hours) Vital Signs Temp Pulse Pulse Resp BP Pulse Ox 11/04/20 13:48 64 24 100 11/04/20 13:35 22 98 11/04/20 13:27 98 11/04/20 12:48 37 C 65 28 H 151/85 H 100 11/04/20 12:43 64 23 151/85 H 100 Laboratory Results Abnormal lab results 11/04/20 11/04/20 11/04/20 Range/Units 14:19 14:19 14:21 RBC 3.48 L (4.2-5.4) M/uL Hgb 9.9 L (12.0-16.0) g/dL Hct 32.7 L (37-47) % MCHC 30.3 L (32-36) g/dL RDW Std Deviation 54.0 H (36.4-46.3) fL RDW Coeff of Erin 15.8 H (11.5-14.5) % Chloride 108 H (98-107) mmol/L Glucose 111 H (70-99) mg/dl Calcium 8.0 L (8.5-10.1) mg/dl Magnesium 1.6 L (1.8-2.4) mg/dl AST 12 L (15-37) U/L NT-Pro-B Natriuret Pep 6536 H (0-1800) pg/ml Total Protein 5.8 L (6.4-8.2) gm/dl Albumin 2.1 L (3.4-5.0) gm/dl Albumin/Globulin Ratio 0.6 L (0.9-2) Digoxin 2.1 H (0.8-2.0) ng/ml Diagnostic Findings Chest X-Ray 11/04/20 13:27 SINGLE VIEW CHEST CLINICAL HISTORY: Dyspnea. FINDINGS: An AP, portable, upright chest radiograph is compared to study dated 09/12/2020. The examination is degraded by portable technique and patient rota tion. The heart is enlarged noting atherosclerotic calcification of the thoracic aorta. There is pulmonary vascular congestion. Bilateral airspace opacities likely representing pulmonary edema. There are small pleural effusions with bibasilar consolidation. No pneumothorax is seen. The skeletal structures are osteopenic. The bony thorax is grossly intact. Degenerative change is noted in the shoulders and thoracic spine. Surgical clips project over the upper abdomen. IMPRESSION: 1. Cardiomegaly with evidence of congestive failure. 2. Bilateral airspace opacities likely represent pulmonary edema. Correlate clinically for evidence of a superimposed infectious/inflammatory pneumonitis. 3. Small pleural effusions with bibasilar consolidation. ACT 112: Negative or not required by law. Electronically signed by: Vinay Eubanks M.D. 11/04/2020 2:45 PM Medications Administered Discontinued Medications Albuterol (Albut/Ipratrop 3mg/0.5mg Neb 3 Ml Vial) 3 ml NEB NOW STA Stop: 11/04/20 13:33 Last Admin: 11/04/20 13:46 Dose: 3 ml Documented by: [id number] Furosemide (Furosemide 40 Mg/4 Ml Vial) 20 mg IV NOW STA Stop: 11/04/20 15:13 Last Admin: 11/04/20 15:25 Dose: 20 mg Documented by: [id number] Furosemide (Furosemide 40 Mg/4 Ml Vial) 20 mg IV NOW STA Stop: 11/04/20 16:07 Last Admin: 11/04/20 16:45 Dose: 20 mg Documented by: [id number] Pantoprazole Sodium 80 mg/ (Dextrose) 100 mls @ 400 mls/hr IV ONE STA Stop: 11/04/20 14:15 Last Admin: 11/04/20 15:17 Dose: Not Given Documented by: [id number] Cefepime HCl (Maxipime) 2,000 mg in 20 mls @ 5 mls/min IV NOW STA; Protocol Stop: 11/04/20 14:52 Last Admin: 11/04/20 15:17 Dose: 5 mls/min Documented by: [id number] Magnesium Sulfate/Dextrose (Magnesium Sulfate / D5w) 1 gm in 100 mls @ 100 mls/hr IV Q1H ISAIAS Stop: 11/04/20 16:54 Last Admin: 11/04/20 16:23 Dose: 100 mls/hr Documented by: [id number] Infusion: 11/04/20 16:22 Dose: 0 mls/hr Documented by: [id number] Admin: 11/04/20 15:17 Dose: 100 mls/hr Documented by: [id number] Ondansetron HCl (Ondansetron Inj 2 Mg/Ml 2 Ml Vial) 4 mg IV NOW STA Stop: 11/04/20 13:33 Last Admin: 11/04/20 13:56 Dose: 4 mg Documented by: [id number] Home Medications Lift Chair #1 ea 03/09/19 [Rx Confirmed 10/31/20] aspirin 81 mg tablet,delayed release (Adult Aspirin Regimen) 81 mg PO QAM 05/02/19 [History Confirmed 11/04/20] atorvastatin 40 mg tablet (Lipitor) 40 mg PO HS #90 tab 10/12/19 [Rx Confirmed 11/04/20] lancets 30 gauge (OneTouch Delica Plus Lancet) #100 ea 11/15/19 [Rx Confirmed 10/31/20] insulin syringe-needle U-100 0.3 mL 31 gauge x 5/16" (BD Insulin Syringe Ultra- Fine) #100 ea 01/29/20 [Rx Confirmed 10/31/20] flash glucose sensor (FreeStyle Vanessa 14 Day Sensor) #1 ea 03/14/20 [Rx Confi rmed 10/31/20] flash glucose scanning reader (FreeStyle Vanessa 14 Day [place]) #1 ea 03/26/20 [Rx Confirmed 10/31/20] nitroglycerin 0.4 mg sublingual tablet 0.4 mg SUBLINGUAL Q5M PRN #25 tab 05/16/20 [Rx Confirmed 11/04/20] albuterol sulfate 2.5 mg INH QID PRN 06/23/20 [History Confirmed 11/04/20] amiodarone 200 mg tablet 200 mg PO AMHS 07/30/20 [History Confirmed 11/04/20] pantoprazole 40 mg tablet,delayed release (Protonix) 40 mg PO DAILYBB 07/30/20 [History Confirmed 11/04/20] acetaminophen 325 mg tablet 650 mg PO Q4H PRN tab 09/06/20 [History Confirmed 11/04/20] aluminum-mag hydroxide-simethicone 200 mg-200 mg-20 mg/5 mL oral susp (Maalox Advanced) 30 ml PO Q6H PRN 09/06/20 [History Confirmed 11/04/20] ipratropium bromide 21 mcg (0.03 %) nasal spray 2 sprays INTNAS TID PRN 09/06/20 [History Confirmed 11/04/20] lorazepam 0.5 mg tablet (Ativan) 0.5 mg PO TID PRN 09/06/20 [History Confirmed 11/04/20] metoprolol succinate 50 mg tablet,extended release 24 hr 50 mg PO BID tab 09/06/20 [History Confirmed 11/04/20] potassium chloride 10 mEq tablet,extended release (Klor-Con) 10 meq PO DAILY 09/06/20 [History Confirmed 11/04/20] ondansetron 4 mg disintegrating tablet 4 mg PO Q6H PRN 10/03/20 [History Confirmed 11/04/20] famotidine 20 mg tablet 20 mg PO BID 10/11/20 [History Confirmed 11/04/20] doxycycline hyclate 100 mg capsule 100 mg PO BID 10/31/20 [History Confirmed 11/04/20] Lactobacillus acidoph-L.bulgaricus 1 million cell tablet (Floranex) 1 tab PO TID 11/04/20 [History Confirmed 11/04/20] acetaminophen 500 mg tablet 500 mg PO TID MDD 3g 11/04/20 [History Confirmed 11/04/20] arginine 7 gram-glutamine 7 gram-calcium HMB 1.5 gram oral powder pack (Lam) 1 ea PO BID 11/04/20 [History Confirmed 11/04/20] benzonatate 100 mg capsule 100 mg PO Q8 PRN 11/04/20 [History Confirmed 11/04/20] calcium carbonate 600 mg(1,500 mg)-vitamin D3 800 unit chewable tablet (Caltrate 600 plus D) 1 tab PO BID 11/04/20 [History Confirmed 11/04/20] citalopram 20 mg tablet 20 mg PO HS 11/04/20 [History Confirmed 11/04/20] digoxin 125 mcg (0.125 mg) tablet (Digitek) 0.125 mg PO .DAILY AT 1700 11/04/20 [History Confirmed 11/04/20] ergocalciferol (vitamin D2) 1,250 mcg (50,000 unit) capsule 1,250 mcg PO WK 11/04/20 [History Confirmed 11/04/20] furosemide 40 mg tablet 40 mg PO QAM 11/04/20 [History Confirmed 11/04/20] gabapentin 300 mg capsule 300 mg PO HS 11/04/20 [History Confirmed 11/04/20] guaifenesin 100 mg/5 mL oral liquid (Robafen) 200 mg PO TID 11/04/20 [History Confirmed 11/04/20] guaifenesin 100 mg/5 mL oral syrup 200 mg PO Q4H PRN 11/04/20 [History Confirmed 11/04/20] ipratropium 0.5 mg-albuterol 3 mg (2.5 mg base)/3 mL nebulization soln 3 ml INHALATION QID 11/04/20 [History Confirmed 11/04/20] metoclopramide HCl 10 mg tablet 10 mg PO ACHS PRN 11/04/20 [History Confirmed 11/04/20] nystatin 100,000 unit/gram topical powder (Nyamyc) 1 applic TOPICAL BID 11/04/20 [History Confirmed 11/04/20] ondansetron HCl 8 mg tablet 8 mg PO ONCE PRN 11/04/20 [History Confirmed 08/19] sennosides 8.6 mg tablet (senna) 8.6 mg PO QAM 11/04/20 [History Confirmed 11/04/20] Active Medications Furosemide (Furosemide 40 Mg/4 Ml Vial) 40 mg IV NOW ISAIAS Stop: 12/04/20 21:59 ECG Additional Comments: Atrial fibrillation Left axis deviation Incomplete left bundle block ST & T wave abnormality, consider lateral ischemia Abnormal ECG When compared with ECG of 12-SEP-2020 22:16, T wave inversion more evident in Lateral leads QT has shortene Code Status & VTE Plan Code Status CODE: FULL VTE: SCD's, Lovenox 40 sub q daily VTE Prophylaxis Plan VTE Prophylaxis will be ordered: Yes Supervising Physician Co-Signing Physician Notes During face to face encounter with patient, obtained a physical and history. My history and physcial examination did not differ from above. I reviewed above note and agree with it. I discussed plan with SAFIA Waite and the patient. All questions were answered. Appears SOB is from fluid overload, will continue to diurese. PG Care Time/CCT Total # of Minutes Spent Total Time Spent with Patient: Total time spent is greater than 50% in coordination of care (as documented) at patient's floor/unit and/or counseling patient: Coding Level of Care Code 18435 Initial Inpt Care Lvl 3 Diagnoses SOB (shortness of breath) R06.02 CHF (congestive heart failure) I50.9 Heart failure chronicity: unspecified Heart failure type: unspecified Hypertension I10 Hyperlipidemia E78.5 Asthma J45.909 Black stool K92.1 Lower back pain M54.5 Atrial fibrillation I48.91 Anemia D64.9 Aspiration pneumonitis J69.0 Hypomagnesemia E83.42 Decubitus skin ulcer L89.220 Laterality: left Pressure injury location: hip Pressure injury stage: unstageable Surgical wound, non healing T81.89XD Encounter type: subsequent encounter (1) CHF (congestive heart failure) Heart failure chronicity: unspecified Heart failure type: unspecified Qualified Code(s): I50.9 - Heart failure, unspecified (2) Decubitus skin ulcer Laterality: left Pressure injury location: hip Pressure injury stage: unstageable Qualified Code(s): L89.220 - Pressure ulcer of left hip, unstageable (3) Surgical wound, non healing Encounter type: subsequent encounter Qualified Code(s): T81.89XD - Other complications of procedures, not elsewhere classified, subsequent encounter
[2020-11-04] MEDS ORDERED: LORazepam 0.5 MG TAB PO PRN (17:49)
[2020-11-04] MEDS ORDERED: METOCLOPRAMIDE HCL 10 MG TABLET PO PRN (17:49)
[2020-11-04] MEDS ORDERED: NITROGLYCERIN SL 0.4 MG/TAB TAB SL PRN (17:49)
[2020-11-04] MEDS: ALBUTEROL 0.083% NEBU SOLN 3 ML VIAL INH SCH ×2 (18:22→19:18)
[2020-11-04] MEDS ORDERED: GLUCAGON FOR INJ 1 MG VIAL SQ PRN (19:30)
[2020-11-04] MEDS ORDERED: DEXTROSE 50% 50 ML SYRINGE IV PRN (19:30)
[2020-11-04] MEDS ORDERED: GLUCOSE 40% GEL 15 GM TUBE PO PRN (19:30)
[2020-11-04] MEDS ORDERED: GLUCOSE 10 TABS/TUBE PO PRN (19:30)
[2020-11-04] MEDS: ENOXAPARIN INJ 40 MG/0.4 ML SYR SQ SCH (20:11)
[2020-11-04] MEDS: AMIODARONE 200 MG TAB PO SCH (20:12)
[2020-11-04 20:13] LABS: Appearance Urine Clear (Clear); Bacteria Urine Automated Negative (Negative); Bilirubin Urine Negative (Negative); Blood Urine 2+ (Negative); Color Urine Yellow; Epithelial Cell Urine Auto >30 /lpf (0-5); Glucose Urine UA Negative (Negative); Ketones Urine Negative (Negative); Leukocyte Esterase Urine 3+ (Negative); Nitrite Urine Negative (Negative); Protein Urine Negative (Negative); RBC Urine Automated 0-4 /hpf (0-4); Specific Gravity Urine 1.008 (1.000-1.030); Urobilinogen Urine Negative (Negative); WBC Urine Automated >30 /hpf (0-5)
[2020-11-04] MEDS: ATORVASTATIN 40 MG TAB PO SCH (20:13)
[2020-11-04] MEDS: CITALOPRAM 20 MG TAB PO SCH (20:13)
[2020-11-04] MEDS: FAMOTIDINE 20 MG TAB PO SCH (20:14)
[2020-11-04] MEDS: NYSTATIN POWDER 15GM BTL EXT SCH (20:14)
[2020-11-04] MEDS: GABAPENTIN 300 MG CAP PO SCH (20:14)
[2020-11-04] MEDS: PANTOprazole 40 MG in SYRINGE 0 ML IV SCH (20:34)
[2020-11-04] MEDS: INSULIN ASPART 100 UNITS/ML 3 ML PEN SC SCH (20:51)
[2020-11-04] MEDS ORDERED: FUROSEMIDE 40 MG/4 ML VIAL IV SCH (22:00)
[2020-11-04] MEDS: guaiFENesin SUGAR FREE 200 MG/10 ML UDC PO PRN (22:55)
[2020-11-05] MEDS: BENZONATATE 100 MG CAPSULE PO PRN (01:06)
[2020-11-05] MEDS: ONDANSETRON 4 MG OD TAB PO PRN (01:20)
[2020-11-05] MEDS ORDERED: POTASSIUM CHLORIDE CRTAB 20 MEQ TABCR PO STA (01:34)
[2020-11-05] MEDS ORDERED: FUROSEMIDE 40 MG in SYRINGE 0 ML IV ONE ×2 (01:34→17:17)
[2020-11-05] MEDS ORDERED: FUROSEMIDE 40 MG/4 ML VIAL IV ONE (01:45)
[2020-11-05] MEDS: guaiFENesin SUGAR FREE 200 MG/10 ML UDC PO PRN ×3 (03:36→16:34)
[2020-11-05 07:35] LABS: Basophils # (auto) 0.01 K/uL (0-0.2); Basophils % (auto) 0.1 %; Eosinophils # (auto) 0.19 K/uL (0-0.5); Eosinophils % (auto) 2.4 %; Hematocrit (blood only) 33.1 % (37-47); Hemoglobin 10.1 g/dL (12.0-16.0); Immature Granulocytes # (auto) 0.03 K/uL (0.00-0.02); Immature Granulocytes % (auto) 0.4 %; Mean Corpuscular Hemoglobin 28.9 pg (25-34); Mean Corpuscular Hgb Conc 30.5 g/dL (32-36); Mean Corpuscular Volume 94.8 fL (80-100); Mean Platelet Volume 9.6 fL (7.4-10.4); Monocytes # (auto) 0.58 K/uL (0.11-0.59); Monocytes % (auto) 7.5 %; Neutrophils # (auto) 5.55 K/uL (1.4-6.5); Neutrophils % (auto) 71.6 %; Platelet Count 289 K/uL (130-400); RDW Coefficient of Variation 15.7 % (11.5-14.5); RDW Standard Deviation 54.4 fL (36.4-46.3); Red Blood Count 3.49 M/uL (4.2-5.4); White Blood Count 7.76 K/uL (4.8-10.8)
[2020-11-05] MEDS: ALBUTEROL 0.083% NEBU SOLN 3 ML VIAL INH SCH ×4 (07:40→19:24)
[2020-11-05 08:07] LABS: BUN Creatinine Ratio 16.2 (10-20); Calcium 8.2 mg/dl (8.5-10.1); Creatinine Clr Calc Pharmacy 43.7 ml/min; Est GFR (African American) 48.6 ml/min; Est GFR (Non-African American) 41.9 ml/min; Magnesium 2.1 mg/dl (1.8-2.4); Potassium 3.7 mmol/L (3.5-5.1)
--- NOTE | 2020-11-05 08:23 | Electrocardiogram Report ---
Test Reason : Blood Pressure : / mmHG Vent. Rate : 068 BPM Atrial Rate : 091 BPM P-R Int : 000 ms QRS Dur : 112 ms QT Int : 402 ms P-R-T Axes : 000 -41 151 degrees QTc Int : 427 ms Atrial fibrillation Left axis deviation Incomplete left bundle block Nonspecific ST and T wave abnormality Lateral leads Abnormal ECG When compared with ECG of 12-SEP-2020 22:16, T wave inversion more evident in Lateral leads QT has shortened Confirmed by Shane Stock ([id number]) on 11/05/2020 8:23:14 AM Referred By: REFERRED SELF Confirmed By:Shane Stock
--- NOTE | 2020-11-05 08:35 | Hospitalist Progress Note ---
Date of Service November 05, 2020 Assessment & Plan (1) SOB (shortness of breath): Plan: Acute on Chronic diastolic heart failure plus aspiration pneumonitis, - CXR seems most consistent with pulmonary edema, will diurese with IV furosemide - - Recieved dose of Cefepime in EMD- as above no fevers, normal WBC- will defer ABX - For hypoxia-- oxygen support - Flutter valve QID, Cough assist with vest/CHest PT/Metaneb- QID to avoid mucous plugging - Continue inhalers - would like to evaluate chest for CTA but likely unable to lay flat- will repeat venous Doppler of the legs to r/0 possibility of PE. (2) Aspiration pneumonitis: Plan: did see speech and had VFSS last admission had silent aspiration with thin liquids - cough suppressant for coughing spells - chest pt, flutter valve - aspiration precautions, minced and moist diet - no straws, medication delivered in carrier per nursing (3) CHF (congestive heart failure): Plan: Acute on chronic diastolic heart failure- BNP 6536 continues to increase from last admission - continue to diurese - ECHO - last ECHO in 07/03/20- ECHO 55-60%, Left ventricular wall normal, moderate MR - Noted RSVP 30-40- does not wear CPAP/BiPAP at home -Digoxin toxicity, Dig on hold with recheck Dig level in the morning- currently 2.1 (4) Atrial fibrillation: Plan: Currently rate controlled - continue amiodarone - hold metoprolol and digoxin as above (5) Hypertension: (6) Hyperlipidemia: Plan: As above (7) Asthma: Plan: As above- continue chest phsyotheray, respiratory support, and inhalers (8) Black stool: Plan: Reported however appears chronic - She is normocytic normochromic on admission and HGB levels are higher than they have been - Protonix 40mg po BID- follow CBC- adjust therapy as warranted (9) Lower back pain: Plan: Chronic- history of compression fracture - continue tylenol for pain (10) Anemia: Plan: As above normocytic normochromic- AOCD likely follow (11) Hypomagnesemia: Plan: replete (12) Decubitus skin ulcer: Plan: Continue to offload as applicable- difficult secondary to her needing to sit up for her dyspnea - wound care consultation for re-application of woundvac/need/dressings - appreciate their assistance (13) Surgical wound, non healing: Plan: Continue with aquacell AG daily to right breast Admission and Anticipated Discharge Date Admission Date: November 04, 2020 Subjective Pt is awake and pleasant,. c/o diarrhea, will be seen by wound care nurse, family called to confirm DNR status Review of Systems Review of Systems: Mild distress and fatigue no headache, no visual changes no speech or swallowing issues no chest pain, right chest wall wound with dressing, no pressure or palpitations no shortness of breath, cough or wheezes no abdominal pain, nausea or vomiting, c/o diarrhea making hygene issue no dysuria, hematuria or frequency no focal joint pain or swelling no back pain, CVA tenderness or radicular pain no bruising, bleeding or rashes no focal signs of weakness or numbness or altered sensation no complaints of anxiety or depression.. Physical Exam Physical Exam: The patient appeared well nourished and normally developed. Vital signs as documented. Head exam is normocephalic atraumatic Neck is without JVD, thyromegaly, or carotid bruits. Lungs are clear rales at the bases mildly tachypneic accessory muscle use in place Cardiac exam, Rhythm is regular.. No murmurs, rubs or gallops. Right chest wall dressing in place appears to be clean and dry Abdominal exam reveals normal bowel sounds, soft non tender, no masses Extremities are 2+ edema bilaterally and both pedal pulses are present Neurologic exam is alert and oriented, no focal loss of strength or sensation Skin is with existing decubiti wound care will see Results & Data Results & Data ([facility]) Vital Signs (Past 12 Hours) Vital Signs Temp Pulse Resp BP Pulse Ox 11/05/20 07:59 98.1 F 77 20 143/64 H 100 11/05/20 07:41 77 17 100 11/05/20 03:04 98.1 F 62 20 126/69 97 11/04/20 22:43 98.1 F 67 24 124/78 97 PG Care Time/CCT Total # of Minutes Spent Total Time Spent with Patient: Total time spent is greater than 50% in coordination of care (as documented) at patient's floor/unit and/or counseling patient: Coding Level of Care Code 43394 Subseq Hosp Care Lvl 3 Diagnoses SOB (shortness of breath) R06.02 Aspiration pneumonitis J69.0 CHF (congestive heart failure) I50.9 Heart failure chronicity: unspecified Heart failure type: unspecified Atrial fibrillation I48.91 Hypertension I10 Hyperlipidemia E78.5 Asthma J45.909 Black stool K92.1 Lower back pain M54.5 Anemia D64.9 Hypomagnesemia E83.42 Decubitus skin ulcer L89.220 Laterality: left Pressure injury location: hip Pressure injury stage: unstageable Surgical wound, non healing T81.89XD Encounter type: subsequent encounter (1) CHF (congestive heart failure) Heart failure chronicity: unspecified Heart failure type: unspecified Qualified Code(s): I50.9 - Heart failure, unspecified (2) Decubitus skin ulcer Laterality: left Pressure injury location: hip Pressure injury stage: unstageable Qualified Code(s): L89.220 - Pressure ulcer of left hip, unstageable (3) Surgical wound, non healing Encounter type: subsequent encounter Qualified Code(s): T81.89XD - Other complications of procedures, not elsewhere classified, subsequent encounter
[2020-11-05] MEDS: FAMOTIDINE 20 MG TAB PO SCH ×2 (09:23→19:53)
[2020-11-05] MEDS: POTASSIUM CHLORIDE 10 MEQ TABCR PO SCH (09:25)
[2020-11-05] MEDS: AMIODARONE 200 MG TAB PO SCH ×2 (09:25→19:47)
[2020-11-05] MEDS: SENNA 8.6 MG TAB PO SCH ×2 (09:25→10:19)
[2020-11-05] MEDS: NYSTATIN POWDER 15GM BTL EXT SCH ×2 (09:26→19:48)
[2020-11-05] MEDS: PANTOprazole 40 MG in SYRINGE 0 ML IV SCH ×2 (09:27→19:48)
[2020-11-05] MEDS: INSULIN GLARGINE SOLOSTAR 100 UNITS/ML 3 ML PEN SC SCH (09:27)
[2020-11-05] MEDS: INSULIN ASPART 100 UNITS/ML 3 ML PEN SC SCH ×4 (09:31→20:19)
--- NOTE | 2020-11-05 10:49 | Ultrasound Report ---
BILATERAL LOWER EXTREMITY VENOUS DOPPLER HISTORY: Swelling of the bilateral lower extremities evaluate for DVTs COMPARISON STUDY: Doppler study 08/03/2020. FINDINGS: There is normal compressibility, flow, and augmentation within the bilateral lower extremit y deep venous systems the calf veins are suboptimally visualized secondary to patient body habitus. IMPRESSION: No DVT within the right or left lower extremity. ACT 112: Negative or not required by law. Electronically signed by: Uzair Martin M.D. 11/05/2020 10:48 AM
[2020-11-05] MEDS: ENOXAPARIN INJ 40 MG/0.4 ML SYR SQ SCH (16:34)
[2020-11-05] MEDS: CARBOHYDRATES FOR HYPOGLYCEMIA PO PRN (16:45)
--- NOTE | 2020-11-05 18:15 | XCELERA ---
[id number]
[2020-11-05] MEDS: CITALOPRAM 20 MG TAB PO SCH (19:47)
[2020-11-05] MEDS: ATORVASTATIN 40 MG TAB PO SCH (19:47)
[2020-11-05] MEDS: GABAPENTIN 300 MG CAP PO SCH (19:48)
[2020-11-06 06:54] LABS: Basophils # (auto) 0.01 K/uL (0-0.2); Basophils % (auto) 0.1 %; Eosinophils % (auto) 4.8 %; Hematocrit (blood only) 34.8 % (37-47); Hemoglobin 10.7 g/dL (12.0-16.0); Immature Granulocytes # (auto) 0.02 K/uL (0.00-0.02); Immature Granulocytes % (auto) 0.2 %; Lymphocytes # (auto) 1.68 K/uL (1.2-3.4); Lymphocytes % (auto) 20.3 %; Mean Corpuscular Hemoglobin 29.1 pg (25-34); Mean Corpuscular Hgb Conc 30.7 g/dL (32-36); Mean Corpuscular Volume 94.6 fL (80-100); Mean Platelet Volume 9.7 fL (7.4-10.4); Monocytes # (auto) 0.89 K/uL (0.11-0.59); Monocytes % (auto) 10.8 %; Neutrophils # (auto) 5.27 K/uL (1.4-6.5); Neutrophils % (auto) 63.8 %; Platelet Count 259 K/uL (130-400); RDW Coefficient of Variation 15.8 % (11.5-14.5); RDW Standard Deviation 54.8 fL (36.4-46.3); Red Blood Count 3.68 M/uL (4.2-5.4); White Blood Count 8.27 K/uL (4.8-10.8)
[2020-11-06] MEDS: ALBUTEROL 0.083% NEBU SOLN 3 ML VIAL INH SCH ×4 (07:07→19:23)
[2020-11-06 07:32] LABS: BUN Creatinine Ratio 14.7 (10-20); Calcium 8.3 mg/dl (8.5-10.1); Creatinine Clr Calc Pharmacy 43.9 ml/min; Est GFR (African American) 50.1 ml/min; Est GFR (Non-African American) 43.2 ml/min; Magnesium 2.2 mg/dl (1.8-2.4); Potassium 3.7 mmol/L (3.5-5.1)
[2020-11-06] MEDS: CARBOHYDRATES FOR HYPOGLYCEMIA PO PRN ×2 (07:41→08:01)
[2020-11-06] MEDS: FUROSEMIDE 40 MG in SYRINGE 0 ML IV SCH (08:31)
[2020-11-06] MEDS: AMIODARONE 200 MG TAB PO SCH ×2 (08:31→19:38)
[2020-11-06] MEDS: POTASSIUM CHLORIDE 10 MEQ TABCR PO SCH (08:31)
[2020-11-06] MEDS: PANTOprazole 40 MG in SYRINGE 0 ML IV SCH ×2 (08:31→19:51)
[2020-11-06] MEDS: INSULIN GLARGINE SOLOSTAR 100 UNITS/ML 3 ML PEN SC SCH (08:31)
[2020-11-06] MEDS: FAMOTIDINE 20 MG TAB PO SCH ×2 (08:31→19:39)
[2020-11-06] MEDS: SENNA 8.6 MG TAB PO SCH (08:31)
[2020-11-06] MEDS: NYSTATIN POWDER 15GM BTL EXT SCH ×2 (08:31→19:40)
[2020-11-06] MEDS: INSULIN ASPART 100 UNITS/ML 3 ML PEN SC SCH ×4 (08:32→20:30)
--- NOTE | 2020-11-06 08:36 | Hospitalist Progress Note ---
Date of Service November 06, 2020 Assessment & Plan (1) SOB (shortness of breath): Plan: Acute on Chronic diastolic heart failure plus aspiration pneumonitis, -initial CXR seems most consistent with pulmonary edema, continue to diurese with IV furosemide - - Received dose of Cefepime in EMD- as above no fevers, normal WBC- will defer ABX - For hypoxia-- oxygen support - Flutter valve QID, Cough assist with vest/CHest PT/Metaneb- QID to avoid mucous plugging - Continue inhalers - venous Doppler negative for DVT (2) Aspiration pneumonitis: Plan: did see speech and had VFSS last admission had silent aspiration with thin liquids, family is aware will continue to have aspiration and cough - cough suppressant for coughing spells - chest pt, flutter valve - aspiration precautions, minced and moist diet - no straws, medication delivered in carrier per nursing (3) CHF (congestive heart failure): Plan: Acute on chronic diastolic heart failure- BNP 6536 continues to increase from last admission - continue to diurese - repeat ECHO 55-60%, Left ventricular wall normal, moderate MR - Noted RSVP 30-40- does not wear CPAP/BiPAP at home -Digoxin toxicity on admission, recheck Dig 1.9, restart at lower doses (4) Atrial fibrillation: Plan: Currently rate controlled - continue amiodarone - holding metoprolol no rebound tachycardia (5) Hypertension: (6) Hyperlipidemia: Plan: As above (7) Asthma: Plan: As above- continue chest phsyotheray, respiratory support, and inhalers (8) Black stool: Plan: Reported however appears chronic, hgb is stable - She is normocytic normochromic on admission and HGB levels are higher than they have been - Protonix 40mg po BID- follow CBC- adjust therapy as warranted (9) Lower back pain: Plan: Chronic- history of compression fracture - continue tylenol for pain (10) Anemia: Plan: As above normocytic normochromic- Anemia of Chronic disease (11) Hypomagnesemia: Plan: replete (12) Decubitus skin ulcer: Plan: Continue to offload as applicable- difficult secondary to her needing to sit up for her dyspnea - wound care consultation for re-application of woundvac/need/dressings - appreciate their assistance (13) Surgical wound, non healing: Plan: Continue with aquacell AG daily to right breast Plan: Family is now considering transition to palliative care mode understanding that many of her problems are not repairable or fixable. I waiting have a conversation with the daughter and I did have a conversation at the bedside with the patient who feels she is in support of this transition Admission and Anticipated Discharge Date Admission Date: November 04, 2020 Subjective Pt is awake and pleasant,. c/o diarrhea, seen by wound care nurse, family call ed to discuss possible palliative care transtion, pt herself is supportive of this and she just wants to be home in her own words Review of Systems Review of Systems: Mild distress and fatigue no headache, no visual changes no speech or swallowing issues no chest pain, right chest wall wound with dressing, no pressure or palpitations no shortness of breath, cough or wheezes no abdominal pain, nausea or vomiting, c/o diarrhea making hygene issue no dysuria, hematuria or frequency no focal joint pain or swelling no back pain, CVA tenderness or radicular pain no bruising, bleeding or rashes no focal signs of weakness or numbness or altered sensation no complaints of anxiety or depression.. Physical Exam Physical Exam: The patient appeared well nourished and normally developed. Vital signs as documented. Head exam is normocephalic atraumatic Neck is without JVD, thyromegaly, or carotid bruits. Lungs are clear rales at the bases mildly tachypneic accessory muscle use in place Cardiac exam, Rhythm is regular.. No murmurs, rubs or gallops. Right chest wall dressing in place appears to be clean and dry Abdominal exam reveals normal bowel sounds, soft non tender, no masses Extremities are 2+ edema bilaterally and both pedal pulses are present Neurologic exam is alert and oriented, no focal loss of strength or sensation Skin is with existing decubiti wound care will see Results & Data Results & Data ([facility]) Vital Signs (Past 12 Hours) Vital Signs Temp Pulse Pulse Resp BP Pulse Ox 11/06/20 08:16 97.7 F 69 16 121/62 97 11/06/20 07:09 61 16 100 11/06/20 03:17 97.9 F 62 18 121/67 98 11/05/20 23:37 60 11/05/20 23:02 98.1 F 62 20 119/64 100 PG Care Time/CCT Total # of Minutes Spent Total Time Spent with Patient: Total time spent is greater than 50% in coordination of care (as documented) at patient's floor/unit and/or counseling patient: Coding Level of Care Code 36335 Subseq Hosp Care Lvl 3 Diagnoses SOB (shortness of breath) R06.02 Aspiration pneumonitis J69.0 CHF (congestive heart failure) I50.9 Heart failure chronicity: unspecified Heart failure type: unspecified Atrial fibrillation I48.91 Hypertension I10 Hyperlipidemia E78.5 Asthma J45.909 Black stool K92.1 Lower back pain M54.5 Anemia D64.9 Hypomagnesemia E83.42 Decubitus skin ulcer L89.220 Laterality: left Pressure injury location: hip Pressure injury stage: unstageable Surgical wound, non healing T81.89XD Encounter type: subsequent encounter (1) CHF (congestive heart failure) Heart failure chronicity: unspecified Heart failure type: unspecified Qualified Code(s): I50.9 - Heart failure, unspecified (2) Decubitus skin ulcer Laterality: left Pressure injury location: hip Pressure injury stage: unstageable Qualified Code(s): L89.220 - Pressure ulcer of left hip, unstageable (3) Surgical wound, non healing Encounter type: subsequent encounter Qualified Code(s): T81.89XD - Other complications of procedures, not elsewhere classified, subsequent encounter
[2020-11-06] MEDS: BENZONATATE 100 MG CAPSULE PO PRN (15:33)
[2020-11-06] MEDS: guaiFENesin SUGAR FREE 200 MG/10 ML UDC PO PRN ×2 (15:33→19:16)
[2020-11-06] MEDS: ENOXAPARIN INJ 40 MG/0.4 ML SYR SQ SCH (17:26)
[2020-11-06] MEDS: ACETAMINOPHEN 325 MG TAB PO PRN (17:26)
[2020-11-06] MEDS: ATORVASTATIN 40 MG TAB PO SCH (19:38)
[2020-11-06] MEDS: CITALOPRAM 20 MG TAB PO SCH (19:39)
[2020-11-06] MEDS: GABAPENTIN 300 MG CAP PO SCH (19:39)
[2020-11-07] MEDS: BENZONATATE 100 MG CAPSULE PO PRN (03:01)
[2020-11-07] MEDS: guaiFENesin SUGAR FREE 200 MG/10 ML UDC PO PRN (03:01)
[2020-11-07 07:07] LABS: Basophils # (auto) 0.02 K/uL (0-0.2); Basophils % (auto) 0.2 %; Eosinophils # (auto) 0.24 K/uL (0-0.5); Eosinophils % (auto) 2.4 %; Hematocrit (blood only) 35.6 % (37-47); Hemoglobin 10.8 g/dL (12.0-16.0); Immature Granulocytes # (auto) 0.02 K/uL (0.00-0.02); Immature Granulocytes % (auto) 0.2 %; Mean Corpuscular Hemoglobin 28.7 pg (25-34); Mean Corpuscular Hgb Conc 30.3 g/dL (32-36); Mean Corpuscular Volume 94.7 fL (80-100); Mean Platelet Volume 9.9 fL (7.4-10.4); Monocytes # (auto) 0.89 K/uL (0.11-0.59); Monocytes % (auto) 8.9 %; Neutrophils # (auto) 7.01 K/uL (1.4-6.5); Neutrophils % (auto) 70.3 %; Platelet Count 316 K/uL (130-400); RDW Coefficient of Variation 15.8 % (11.5-14.5); RDW Standard Deviation 54.8 fL (36.4-46.3); Red Blood Count 3.76 M/uL (4.2-5.4); White Blood Count 9.98 K/uL (4.8-10.8)
[2020-11-07] MEDS: ALBUTEROL 0.083% NEBU SOLN 3 ML VIAL INH SCH ×2 (07:13→11:38)
[2020-11-07 07:43] LABS: BUN Creatinine Ratio 12.7 (10-20); Calcium 8.3 mg/dl (8.5-10.1); Creatinine Clr Calc Pharmacy 40.3 ml/min; Est GFR (Non-African American) 38.8 ml/min; Potassium 3.7 mmol/L (3.5-5.1)
[2020-11-07] MEDS: PANTOprazole 40 MG in SYRINGE 0 ML IV SCH (08:09)
[2020-11-07] MEDS ORDERED: LORazepam 0.5 MG/1 ML VIAL IV PRN ×2 (08:09→20:26)
[2020-11-07] MEDS: FUROSEMIDE 40 MG in SYRINGE 0 ML IV SCH (08:09)
[2020-11-07] MEDS: AMIODARONE 200 MG TAB PO SCH ×2 (08:12→20:44)
[2020-11-07] MEDS: NYSTATIN POWDER 15GM BTL EXT SCH ×2 (08:12→20:46)
[2020-11-07] MEDS: FAMOTIDINE 20 MG TAB PO SCH ×2 (08:12→20:44)
[2020-11-07] MEDS: INSULIN ASPART 100 UNITS/ML 3 ML PEN SC SCH ×4 (08:12→21:04)
[2020-11-07] MEDS: POTASSIUM CHLORIDE 10 MEQ TABCR PO SCH (08:13)
[2020-11-07] MEDS: SENNA 8.6 MG TAB PO SCH (08:13)
[2020-11-07] MEDS: ONDANSETRON INJ 2 MG/ML 2 ML VIAL IV PRN (15:10)
[2020-11-07] MEDS ORDERED: DIGOXIN 0.125 MG TAB PO SCH (16:00)
--- NOTE | 2020-11-07 16:01 | Hospitalist Progress Note ---
Date of Service November 07, 2020 Assessment & Plan (1) Need for comfort care: Plan: Careful discussion had with daughter. They are agreement to proceed to home with palliative care. They understand that she may from either infection from her ulcers or aspiration with respiratory distress. Family asked that we discontinue thickener and liquids. I was very jessica with them saying that this may lead to an earlier and may not prevent the patient to go home they said did not care about that they just wanted her to have normal liquids and be on a full liquid diet. Family is attempting to coordinate their home to be prepared for Wednesday or Wednesday which is 2 to 3 days from today. They are aware that it is difficult to predict what may happen with her intermittent aspiration and infections. We reduce many medications that would be aimed at things other than comfort while here. We will still begin to treat her diabetes and provide oxygen support (2) SOB (shortness of breath): Plan: Acute on Chronic diastolic heart failure plus aspiration pneumonitis, -initial CXR seems most consistent with pulmonary edema, continue to diurese with IV furosemide - - Received dose of Cefepime in EMD- as above no fevers, normal WBC- will defer ABX - For hypoxia-- oxygen support - venous Doppler negative for DVT (3) Aspiration pneumonitis: Plan: did see speech and had VFSS last admission had silent aspiration with thin liquids, family is aware will continue to have aspiration and cough - cough suppressant for coughing spells - aspiration precautions, minced and moist diet (4) CHF (congestive heart failure): Plan: Acute on chronic diastolic heart failure- BNP 6536 continues to increase from last admission - continue to diurese - repeat ECHO 55-60%, Left ventricular wall normal, moderate MR - Noted RSVP 30-40- does not wear CPAP/BiPAP at home -Digoxin toxicity on admission, recheck Dig 1.9, restart at lower doses (5) Atrial fibrillation: Plan: Currently rate controlled - continue amiodarone - holding metoprolol no rebound tachycardia (6) Hypertension: (7) Black stool: Plan: Reported however appears chronic, hgb is stable - She is normocytic normochromic on admission and HGB levels are higher than they have been (8) Anemia: Plan: As above normocytic normochromic- Anemia of Chronic disease (9) Hypomagnesemia: Plan: replete (10) Decubitus skin ulcer: Plan: Continue to offload as applicable- difficult secondary to her needing to sit up for her dyspnea - wound care consultation for re-application of woundvac/need/dressings - appreciate their assistance (11) Surgical wound, non healing: Plan: Continue with aquacell AG daily to right breast Plan: Family is now considering transition to palliative care mode understanding that many of her problems are not repairable or fixable. I waiting have a conversation with the daughter and I did have a conversation at the bedside with the patient who feels she is in support of this transition Admission and Anticipated Discharge Date Admission Date: November 04, 2020 Subjective Pt is awake and pleasant,. c/o diarrhea, seen by wound care nurse, family called to discuss possible palliative care transtion, pt herself is supportive of this and she just wants to be home in her own words. I had a discussion with daughter who wants to stop thickener in liquids and have on full liquid diet understanding that she may aspirate and . Family attempting to make home ready but may not be ready till wednesday or wednesday, family aware pt could aspirate before then. Review of Systems Review of Systems: Mild distress and fatigue no headache, no visual changes no speech or swallowing issues no chest pain, right chest wall wound with dressing, no pressure or palpitations no shortness of breath,repeated non productive coughing no abdominal pain, nausea or vomiting, c/o diarrhea making hygene issue no dysuria, hematuria or frequency no focal joint pain or swelling no back pain, CVA tenderness or radicular pain no bruising, bleeding or rashes no focal signs of weakness or numbness or altered sensation no complaints of anxiety or depression.. Physical Exam Physical Exam: The patient appeared well nourished and normally developed. Vital signs as documented. Head exam is normocephalic atraumatic Neck is without JVD, thyromegaly, or carotid bruits. Lungs are clear rales at the bases mildly tachypneic accessory muscle use in place Cardiac exam, Rhythm is regular.. No murmurs, rubs or gallops. Right chest wall dressing in place appears to be clean and dry Abdominal exam reveals normal bowel sounds, soft non tender, no masses Extremities are 2+ edema bilaterally and both pedal pulses are present Neurologic exam is alert and oriented, no focal loss of strength or sensation Skin is with existing decubiti wound care will see Results & Data Results & Data ([facility]) Vital Signs (Past 12 Hours) Vital Signs Temp Pulse Pulse Resp BP Pulse Ox 11/07/20 15:41 99.7 F H 85 18 151/66 H 95 11/07/20 15:38 86 11/07/20 11:38 86 20 98 11/07/20 11:17 99.0 F 91 H 18 145/72 H 94 11/07/20 07:15 90 21 91 11/07/20 07:14 98.4 F 101 H 20 161/74 H 93 11/07/20 07:08 81 PG Care Time/CCT Total # of Minutes Spent Total Time Spent with Patient: Total time spent is greater than 50% in coordination of care (as documented) at patient's floor/unit and/or counseling patient: Coding Level of Care Code 48601 Subseq Hosp Care Lvl 3 Diagnoses SOB (shortness of breath) R06.02 Aspiration pneumonitis J69.0 CHF (congestive heart failure) I50.9 Heart failure chronicity: unspecified Heart failure type: unspecified Atrial fibrillation I48.91 Hypertension I10 Black stool K92.1 Anemia D64.9 Hypomagnesemia E83.42 Decubitus skin ulcer L89.220 Laterality: left Pressure injury location: hip Pressure injury stage: unstageable Surgical wound, non healing T81.89XD Encounter type: subsequent encounter Need for comfort care (1) CHF (congestive heart failure) Heart failure chronicity: unspecified Heart failure type: unspecified Qualified Code(s): I50.9 - Heart failure, unspecified (2) Decubitus skin ulcer Laterality: left Pressure injury location: hip Pressure injury stage: unstageable Qualified Code(s): L89.220 - Pressure ulcer of left hip, unstageable (3) Surgical wound, non healing Encounter type: subsequent encounter Qualified Code(s): T81.89XD - Other complications of procedures, not elsewhere classified, subsequent encounter
[2020-11-07] MEDS: ONDANSETRON 4 MG OD TAB PO PRN (19:50)
[2020-11-07] MEDS ORDERED: MoRPHine SULFATE 2 MG/ML CARP IV PRN (20:26)
[2020-11-07] MEDS ORDERED: LORazepam 0.5 MG TAB PO PRN (20:26)
[2020-11-07] MEDS ORDERED: oxyCODONE HCL IR 5 MG TAB (IMMEDIATE RELEASE) PO PRN (20:26)
[2020-11-07] MEDS: ACETAMINOPHEN 325 MG TAB PO PRN (22:33)
[2020-11-08] MEDS: BENZONATATE 100 MG CAPSULE PO PRN ×2 (03:48→13:32)
[2020-11-08] MEDS ORDERED: guaiFENesin/DEXTROM SYRUP 100MG/10MG 5ML UDC PO ONE (04:55)
[2020-11-08] MEDS: AMIODARONE 200 MG TAB PO SCH (08:41)
[2020-11-08] MEDS: SENNA 8.6 MG TAB PO SCH (08:42)
[2020-11-08] MEDS: FUROSEMIDE 40 MG in SYRINGE 0 ML IV SCH (08:42)
[2020-11-08] MEDS: INSULIN ASPART 100 UNITS/ML 3 ML PEN SC SCH ×2 (08:42→12:27)
[2020-11-08] MEDS: NYSTATIN POWDER 15GM BTL EXT SCH (08:42)
[2020-11-08] MEDS: FAMOTIDINE 20 MG TAB PO SCH (08:42)
[2020-11-08] MEDS: ONDANSETRON INJ 2 MG/ML 2 ML VIAL IV PRN ×2 (12:29→15:45)
--- NOTE | 2020-11-08 13:51 | Discharge Summary ---
Date of Service November 08, 2020 Admission HPI Per Admitting Provider 80 YOF with past medical history of - CHF, CKD III, Afib (not on anticoagulation), MSSA, HTN, HLD, anxiety, Asthma, DM, anemia, ARF with hypoxemia, HTN emergency, aspirations, PNA, right breast wound and left buttocks wound. The patient is over at the [facility] for rehab following her admission for COVID in May, she subsequently developed atrial fibrillation at that time requiring cardioversion and Amiodarone drip. She was originally anticoagulated, but this was discontinued after she had a large spontaneous gluteal hematoma, as well as MSSA infection to her right breast, where she was transferred to [facility] to have IR drainage of large seroma. Since that time she has been in and out of the hospital for increasing dyspnea and CHF. She did have negative Ultrasounds of her lower extremity and and ECHO done in July with EF 55-60% and mild to moderate MR and mild TR. The patient was also seen at the wound care clinic on 10/31/20 with increasing dyspnea and hypoxia and declined to come to the emergency room at that time. She was reportedly diagnosed with a pneumonia in that time and was started on Doxycycline. Patient comes to the EMD today for continued increase in dyspnea and orthopnea, she is currently on continued oxygen at 3-4 liters. Also reports of melena for the past 2-3 days and was Hemoccult positive in the EMD, her HGB level is stable and actuallly better than it has been in the past. She is not tachycardic and her BP is well within her normal range. Patient will be admitted for CHF exacerbation and continued evaluation of her dyspnea. In the EMD she had a CXR done that showed cardiomegally with vascular congestion and bilateral opacities, she did have a swallow study performed in August that showed multiple episodes of silent tracheal aspiration with thin liquids.. Patient will be admitted to continue with pulmonary toileting and diuresing. Will give an additional 20mg IV lasix to total 40 mg IV lasix prior to admission. Repeat her venous Doppler for evaluation of DVT as she is unlikely at this time to be able to lay flat for CTA of the chest. Discharge Data Allergies Allergy/AdvReac Type Severity Reaction Status Date / Time bee venom protein (honey bee) Allergy Severe SWELLING Verified 11/04/20 13:35 SOB iodine Allergy Severe RASH; Verified 11/04/20 13:35 SHORTNESS OF BREATH codeine Allergy Intermediate SWELLING Verified 11/04/20 13:35 metformin Allergy Intermediate Diarrhea Verified 11/04/20 13:35 Penicillins Allergy Intermediate RASH/HIVES Verified 11/04/20 13:35 chocolate flavor Allergy Mild Diarrhea Verified 11/04/20 13:35 procaine Allergy Mild NOVOCAINE-R Verified 11/04/20 13:35 AKILAH Cephalosporins Allergy Unknown UNKNOWN Verified 11/04/20 13:35 clarithromycin Allergy Unknown Unknown Verified 11/04/20 13:35 shellfish derived Allergy Unknown Unknown Verified 11/04/20 13:35 metronidazole AdvReac Intermediate Nausea Verified 11/04/20 13:35 Consultations 11/04/20 15:12 ED Decision to Admit Stat 11/04/20 15:16 ED Decision to Admit Stat Ordered Studies 11/05/20 08:30 US venous doppler LE BI Routine Hospital Course (1) Need for comfort care: Careful discussion had with daughter. They are agreement to proceed to home with palliative care. They understand that she may from either infecti on from her ulcers or aspiration with respiratory distress. Family asked that we discontinue thickener and liquids. I was very jessica with them saying that this may lead to an earlier and may not prevent the patient to go home they said did not care about that they just wanted her to have normal liquids and be on a full liquid diet. Family is attempting to coordinate their home to be prepared for Wednesday or Wednesday which is 2 to 3 days from today. They are aware that it is difficult to predict what may happen with her intermittent aspiration and infections. We reduce many medications that would be aimed at things other than comfort while here. We will still begin to treat her diabetes and provide oxygen support (2) SOB (shortness of breath): Acute on Chronic diastolic heart failure plus aspiration pneumonitis, -initial CXR seems most consistent with pulmonary edema, continue to diurese with IV furosemide - - Received dose of Cefepime in EMD- as above no fevers, normal WBC- will defer ABX - For hypoxia-- oxygen support - venous Doppler negative for DVT (3) Aspiration pneumonitis: did see speech and had VFSS last admission had silent aspiration with thin liquids, family is aware will continue to have aspiration and cough - cough suppressant for coughing spells - aspiration precautions, minced and moist diet (4) CHF (congestive heart failure): Acute on chronic diastolic heart failure- BNP 6536 continues to increase from last admission - continue to diurese - repeat ECHO 55-60%, Left ventricular wall normal, moderate MR - Noted RSVP 30-40- does not wear CPAP/BiPAP at home -Digoxin toxicity on admission, recheck Dig 1.9, restart at lower doses (5) Atrial fibrillation: Currently rate controlled - continue amiodarone - holding metoprolol no rebound tachycardia (6) Hypertension: (7) Black stool: Reported however appears chronic, hgb is stable - She is normocytic normochromic on admission and HGB levels are higher than they have been (8) Anemia: As above normocytic normochromic- Anemia of Chronic disease (9) Hypomagnesemia: replete (10) Decubitus skin ulcer: Continue to offload as applicable- difficult secondary to her needing to sit up for her dyspnea - wound care consultation for re-application of woundvac/need/dressings - appreciate their assistance (11) Surgical wound, non healing: Continue with aquacell AG daily to right breast Family is now considering transition to palliative care mode understanding that many of her problems are not repairable or fixable. I waiting have a conversation with the daughter and I did have a conversation at the bedside with the patient who feels she is in support of this transition Discharge Plan Discharge Items Patient Disposition: Hospice - Home Reason For Visit: DYSPNEA, CHF EXACERBATION Discharge Diagnosis: CHF exacerbation Activity: As commented below Lifting: None Bathing: No limitations Exercise/Sports: As tolerated Non-emergency contact: Primary Care Provider Call non-emergency contact if: you have any medication questions and your symptoms worsen Follow-up/Referrals: Annabelle Bashir [Primary Care Provider] - Diet: Regular Diet Texture: Pureed (blended smooth) Addtl Attending Provider Instructions: You were admitted with congestive heart failure and fluid overload. You also continue to have issues with aspiration. You have decided to go home with hospice and this has been arranged. You can continue on your medications for your heart if tolerated, but if you want to stop taking them, that's ok too. You can take oxycodone as needed for pain, breathlessness, or cough. You can take lorazepam as needed for anxiety- this can be crushed and made into a slurry and placed under the tongue. You will keep the bladder catheter in place but the wound vacuum will be removed for comfort. Best wishes on your homecoming and it was a pleasure taking care of you, Dr. Miranda Parson Pending Studies at Discharge: No Stand-Alone Forms: My [facility] Medications and DC Order Prescriptions: New oxycodone 5 mg/5 mL solution 5 mg PO Q6H PRN (Reason: pain, breathlessness, or cough) Qty: 473 RF: 0 Continued sennosides [senna] 8.6 mg Tablet 8.6 mg PO QAM RF: 0 famotidine 20 mg tablet 20 mg PO BID Qty: 60 RF: 0 benzonatate 100 mg Capsule 100 mg PO Q8 PRN (Reason: Cough) Qty: 30 RF: 0 ondansetron 4 mg tablet,disintegrating 4 mg PO Q6H PRN (Reason: nausea and vomiting) Qty: 15 RF: 0 furosemide 40 mg tablet 40 mg PO QAM Qty: 30 RF: 0 amiodarone 200 mg Tablet 200 mg PO AMHS Qty: 60 RF: 0 Changed lorazepam [Ativan] 0.5 mg tablet 0.5 mg sublingual Q6 PRN (Reason: Anxiety) Qty: 15 RF: 0 digoxin [Digitek] 125 mcg (0.125 mg) tablet 0.125 mg PO Q2D Qty: 15 RF: 0 Discontinued metoprolol succinate 50 mg tablet extended release 24 hr 50 mg PO BID RF: 0 acetaminophen 325 mg tablet 650 mg PO Q4H PRN (Reason: Pain/Temp) RF: 0 doxycycline hyclate 100 mg capsule 100 mg PO BID RF: 0 atorvastatin [Lipitor] 40 mg tablet 40 mg PO HS Qty: 90 RF: 3 (DME) lancets [OneTouch Delica Plus Lancet] 30 gauge misc See Rx Instructions .ROUTE .MEDSUPPLY Qty: 100 RF: 3 (DME) insulin syringe-needle U-100 [BD Insulin Syringe Ultra-Fine] 0.3 mL 31 gauge x 5/16" syringe See Rx Instructions .ROUTE .MEDSUPPLY Qty: 100 RF: 3 (DME) FreeStyle Vanessa 14 Day Sensor Kit See Rx Instructions .ROUTE .MEDSUPPLY Qty: 1 RF: 0 (DME) FreeStyle Vanessa 14 Day Volcano Misc See Rx Instructions .ROUTE .MEDSUPPLY Qty: 1 RF: 0 nitroglycerin 0.4 mg tablet, sublingual 0.4 mg sublingual Q5M PRN (Reason: chest pain) Qty: 25 RF: 3 aspirin [Adult Aspirin Regimen] 81 mg tablet,delayed release (DR/EC) 81 mg PO QAM RF: 0 (DME) [place] [facility] [place] Instructions .ROUTE .MEDSUPPLY Qty: 1 RF: 0 albuterol sulfate 2.5 mg /3 mL (0.083 %) solution for nebulization 2.5 mg INH QID PRN (Reason: SOB) RF: 0 acetaminophen 500 mg Tablet 500 mg PO TID MDD 3g RF: 0 citalopram 20 mg tablet 20 mg PO HS RF: 0 gabapentin 300 mg capsule 300 mg PO HS RF: 0 Lactobacillus acidoph-L.bulgar [Floranex] 1 million cell Tablet 1 tab PO TID RF: 0 Caltrate 600 plus D 600 mg (1,500 mg)-800 unit Tablet,Chewable 1 tab PO BID RF: 0 guaifenesin [Robafen] 100 mg/5 mL Liquid 200 mg PO TID RF: 0 ipratropium-albuterol 0.5 mg-3 mg(2.5 mg base)/3 mL Solution For Nebulization 3 ml INHALATION QID RF: 0 nystatin [Nyamyc] 100,000 unit/gram powder 1 applic TOPICAL BID RF: 0 Lam 7-7-1.5 gram Powder In Packet 1 ea PO BID RF: 0 ergocalciferol (vitamin D2) 1,250 mcg (50,000 unit) Capsule 1,250 mcg PO WK RF: 0 metoclopramide HCl 10 mg tablet 10 mg PO ACHS PRN (Reason: if zofran ineffective) RF: 0 ondansetron HCl 8 mg Tablet 8 mg PO ONCE PRN (Reason: prior to leaving for outside appointments) RF: 0 Siltussin 100 mg/5 mL Syrup 200 mg PO Q4H PRN (Reason: Cough) RF: 0 amiodarone 200 mg Tablet 200 mg PO AMHS RF: 0 pantoprazole [Protonix] 40 mg tablet,delayed release (DR/EC) 40 mg PO DAILYBB RF: 0 alum-mag hydroxide-simeth [Maalox Advanced] 200-200-20 mg/5 mL Suspension 30 ml PO Q6H PRN (Reason: Heartburn) RF: 0 potassium chloride [Klor-Con 10] 10 mEq tablet extended release 10 meq PO DAILY RF: 0 ipratropium bromide 0.03 % spray,non-aerosol 2 sprays INTNAS TID PRN (Reason: sinus congestion) RF: 0 Discharge Orders: Discharge Order (Routine); Ordered 11/08/20 Ordered By: Miranda Parson Admission Data Admit Date/Time: 11/04/20 16:32 Attending Provider: Miranda Parson Admit Provider: Kurt Waite Primary Care Provider: Annabelle Bashir Other Providers: Bret Baker ; [facility] Other Interventions: Discharge Summary Assessment (RN) Last Done: 11/08/20 14:04 Coding Diagnoses Need for comfort care SOB (shortness of breath) R06.02 Aspiration pneumonitis J69.0 CHF (congestive heart failure) I50.9 Heart failure chronicity: unspecified Heart failure type: unspecified Atrial fibrillation I48.91 Hypertension I10 Black stool K92.1 Anemia D64.9 Hypomagnesemia E83.42 Decubitus skin ulcer L89.220 Laterality: left Pressure injury location: hip Pressure injury stage: unstageable Surgical wound, non healing T81.89XD Encounter type: subsequent encounter
== END 2020-11-08 16:00 | disposition hospice, home (50) | DRG 291 ==
LOC: ED 12:36 → SUATTDRO 16:32 → 2N 16:32 → 2W 11-07 18:34